=== PATIENT | female | born 1985 | race Caucasian/White ===

== ENCOUNTER 2016-05-04 16:47 | Emergency (ER) | payer OTHER ==
[2016-05-04 17:08] VITALS: TEMP 98.5
[2016-05-04] MEDS ORDERED: KETOROLAC 30 MG/ML 1 ML VIAL IVP STA (18:44)
[2016-05-04] MEDS ORDERED: PHENAZOPYRIDINE 200 MG TAB PO STA (18:44)
[2016-05-04] MEDS ORDERED: ONDANSETRON 4 MG/2 ML VIAL IVP STA ×2 (18:44→21:12)
[2016-05-04] MEDS ORDERED: SODIUM CHLORIDE 0.9% 1,000 ML IV STA (18:44)
--- NOTE | 2016-05-04 18:52 | ED ---
Abdominal Pain HPI - General Chief Complaint: Abdominal Pain Stated Complaint: vomiting, female gu Time Seen by Provider: 05/04/16 18:37 Source: patient, RN notes reviewed Mode of arrival: ambulatory Limitations: no limitations - History of Present Illness Initial Comments: 31 year old female that presented to the Er chief compliant of lower abdominal pain and dysuria. She states it started yesterday. Patient states the symptoms are getting worse. Patient's had nausea vomiting since this morning. Patient denies any diarrhea. Patient states she feels like she has urinary tract infection. Denies any flank pain. Patient states that she'll chance has she's had tubal ligation and NovaSure procedure. Patient had a prior appendectomy and cholecystectomy also. - Related Data Previous Rx's Medication Instructions Recorded Phenazopyridine [Pyridium] 200 mg PO TID #6 tablet 05/04/16 Allergies Allergy/AdvReac Type Severity Reaction Status Date / Time prochlorperazine maleate AdvReac Rapid Verified 05/04/16 18:55 [From Compazine] Heart Rate Review of Systems ROS Statement: Those systems with pertinent positive or pertinent negative responses have been documented in the HPI. ROS Other: All systems not noted in ROS Statement are negative. Past Medical History Past Medical History: No Reported History Additional Past Medical History / Comment(s): COLITIS, uti's, kidney infections , interstitial cystitis, kidney stones History of Any Multi-Drug Resistant Organisms: None Reported Past Surgical History: Appendectomy, Cholecystectomy, Hysterectomy, Tubal Ligation Additional Past Surgical History / Comment(s): novasure ENDOMETRIAL ABLATION Past Anesthesia/Blood Transfusion Reactions: No Reported Reaction Past Psychological History: No Psychological Hx Reported Smoking Status: Never smoker Past Alcohol Use History: None Reported Past Drug Use History: None Reported - Past Family History Mother Family Medical History: Cancer Father Family Medical History: No Reported History General Exam Limitations: no limitations General appearance: alert, in no apparent distress Head exam: Present: atraumatic, normocephalic, normal inspection Respiratory exam: Present: normal lung sounds bilaterally. Absent: respiratory distress, wheezes, rales, rhonchi, stridor Cardiovascular Exam: Present: regular rate, normal rhythm, normal heart sounds. Absent: systolic murmur, diastolic murmur, rubs, gallop, clicks GI/Abdominal exam: Present: soft, tenderness (moderate suprapubic tenderness), normal bowel sounds. Absent: distended, guarding, rebound, rigid Back exam: Absent: CVA tenderness (R), CVA tenderness (L) Neurological exam: Present: alert, oriented X3, CN II-XII intact Skin exam: Present: warm, dry, intact, normal color. Absent: rash Course Vital Signs 05/04/16 17:06 Temperature 98.5 F Pulse Rate 86 Respiratory 20 Rate Blood Pressure 138/73 O2 Sat by Pulse 99 Oximetry Medical Decision Making - Medical Decision Making 31-year-old female presented for dysuria. Patient states that the Pyridium did initially help though she states ultrasound that made symptoms worse. Patient is requesting pain meds for this. Lab work was within normal limits. Patient will be discharged with primary DM. Return for a discussed. Patient states that she has no vaginal discharge and does not want a pelvic exam. - Lab Data Result diagrams: 05/04/16 19:04 05/04/16 19:04 Lab Results 05/04/16 05/04/16 05/04/16 Range/Units 19:04 19:04 19:04 WBC 8.0 (3.8-10.6) k/uL RBC 4.18 (3.80-5.40) m/uL Hgb 13.1 (11.4-16.0) gm/dL Hct 39.7 (34.0-46.0) % MCV 94.9 (80.0-100.0) fL MCH 31.4 (25.0-35.0) pg MCHC 33.1 (31.0-37.0) g/dL RDW 12.2 (11.5-15.5) % Plt Count 290 (150-450) k/uL Neutrophils % 74 % Lymphocytes % 16 % Monocytes % 7 % Eosinophils % 1 % Basophils % 0 % Neutrophils # 5.9 (1.3-7.7) k/uL Lymphocytes # 1.3 (1.0-4.8) k/uL Monocytes # 0.6 (0-1.0) k/uL Eosinophils # 0.1 (0-0.7) k/uL Basophils # 0.0 (0-0.2) k/uL Sodium 139 (137-145) mmol/L Potassium 3.3 L (3.5-5.1) mmol/L Chloride 101 (98-107) mmol/L Carbon Dioxide 25 (22-30) mmol/L Anion Gap 13 mmol/L BUN 9 (7-17) mg/dL Creatinine 0.62 (0.52-1.04) mg/dL Est GFR (MDRD) Af Amer >60 (>60 ml/min/1.73 sqM) Est GFR (MDRD) Non-Af >60 (>60 ml/min/1.73 sqM) Glucose 79 (74-99) mg/dL Calcium 9.4 (8.4-10.2) mg/dL Total Bilirubin 0.5 (0.2-1.3) mg/dL AST 16 (14-36) U/L ALT 23 (9-52) U/L Alkaline Phosphatase 63 (38-126) U/L Total Protein 7.7 (6.3-8.2) g/dL Albumin 4.7 (3.5-5.0) g/dL Amylase 79 (30-110) U/L Lipase 75 (23-300) U/L Urine Color Light Yellow Urine Appearance Clear (Clear) Urine pH 5.5 (5.0-8.0) Ur Specific [place] 1.012 (1.001-1.035) Urine Protein Negative (Negative) Urine Glucose (UA) Negative (Negative) Urine Ketones 1+ H (Negative) Urine Blood Moderate H (Negative) Urine Nitrate Negative (Negative) Urine Bilirubin Negative (Negative) Urine Urobilinogen <2.0 (<2.0) mg/dL Ur Leukocyte Esterase Negative (Negative) Urine RBC 4 (0-5) /hpf Urine WBC 2 (0-5) /hpf Ur Squamous Epith Cells 4 (0-4) /hpf Urine Mucus Rare H (None) /hpf Disposition Clinical Impression: Dysuria Disposition: HOME SELF-CARE Condition: Stable Instructions: Dysuria (ED) Additional Instructions: Please return to the Emergency Department if symptoms worsen or any other concerns. Prescriptions: Phenazopyridine [Pyridium] 200 mg PO TID #6 tablet Time of Disposition: 21:14
[2016-05-04 19:13] LABS: Basophils % (A) 0 %; CH 32.6; CHCM 34.5; Eosinophils # (A) 0.1 k/uL (0-0.7); Eosinophils % (A) 1 %; HCT 39.7 % (34.0-46.0); HDW 2.17; HGB 13.1 gm/dL (11.4-16.0); Luc # (Auto) 0.14; Luc % (Auto) 2; Lymphocytes # (A) 1.3 k/uL (1.0-4.8); Lymphocytes % (A) 16 %; MCH 31.4 pg (25.0-35.0); MCHC 33.1 g/dL (31.0-37.0); MCV 94.9 fL (80.0-100.0); Mean Platelet Volume 6.5; Monocytes # (A) 0.6 k/uL (0-1.0); Monocytes % (A) 7 %; Neutrophils # (A) 5.9 k/uL (1.3-7.7); Neutrophils % (A) 74 %; RBC 4.18 m/uL (3.80-5.40); RDW 12.2 % (11.5-15.5); WBC (Perox) 8.04
[2016-05-04 19:14] LABS: Appearance,Urine Clear (Clear); Bilirubin,Urine Negative (Negative); Glucose,Urine (UA) Negative (Negative); Ketones,Urine 1+ (Negative); Leukocyte Esterase,Urine Negative (Negative); Mucus,Urine Rare /hpf; Nitrite,Urine Negative (Negative); PH, Urine 5.5 (5.0-8.0); Particle Count 2077; Protein,Urine Negative (Negative); RBC,Urine 4 /hpf (0-5); Specific Gravity,Urine 1.012 (1.001-1.035); Squamous Epithelial Cell,Urine 4 /hpf (0-4); UA Billing (MACRO vs. MICRO) MICRO; Urobilinogen,Urine <2.0 mg/dL (<2.0); WBC,Urine 2 /hpf (0-5)
[2016-05-04 19:22] LABS: ALT 23 U/L (9-52); AST 16 U/L (14-36); Alkaline Phosphatase 63 U/L (38-126); Amylase 79 U/L (30-110); Anion Gap 13 mmol/L; Blood Urea Nitrogen 9 mg/dL (7-17); Calcium 9.4 mg/dL (8.4-10.2); Carbon Dioxide 25 mmol/L (22-30); Chloride 101 mmol/L (98-107); Glucose 79 mg/dL (74-99); Non-African American GFR(MDRD) >60 (>60 ml/min/1.73 sqM); Potassium 3.3 mmol/L (3.5-5.1); Sodium 139 mmol/L (137-145); Total Bilirubin 0.5 mg/dL (0.2-1.3); Total Protein 7.7 g/dL (6.3-8.2)
--- NOTE | 2016-05-04 20:00 | XR ---
EXAMINATION TYPE: XR KUB DATE OF EXAM: 05/04/2016 7:40 PM COMPARISON: 06/10/2015 HISTORY: 2 views TECHNIQUE: 2 views FINDINGS: Bowel gas pattern is normal. There is no sign of intestinal obstruction or pneumoperitoneum. Fecal pa ttern is normal. There are clips from cholecystectomy. Lung bases are clear. Bony structures are inta ct. IMPRESSION: Nonacute abdomen. No change.
--- NOTE | 2016-05-04 21:00 | US ---
EXAMINATION TYPE: US transvaginal DATE OF EXAM: 05/04/2016 8:48 PM COMPARISON: NONE CLINICAL HISTORY: Pain. TECHNIQUE: Transvaginal (TV) Date of LMP: 2014 EXAM MEASUREMENTS: Uterus: Surgically absent Endometrial Stripe: Surgically absent Right Ovary: 3.8 x 2.2 x 1.9 cm Left Ovary: 2.1 x 1.7 x 1.3 cm TECHNOLOGIST IMPRESSION: wnl 1. Uterus: Surgically absent 2. Endometrium: Surgically absent 3. Right Ovary: wnl 4. Left Ovary: wnl Spectral, color and waveform doppler imaging shows good arterial and venous flow within the ovaries ; there is no evidence for ovarian torsion. 5. Bilateral Adnexa: Large amount of peristalsing bowel visualized 6. Posterior cul-de-sac: wnl IMPRESSION: No adnexal mass or free fluid. There is normal arterial waveform in the ovarian arteries and no evidence of ovarian torsion. Hysterectomy is noted.
[2016-05-04] MEDS ORDERED: MORPHINE SULFATE 4 MG/ML SYRINGE IVP STA (21:12)
[2016-05-04 21:34] VITALS: BP 113/55; PULSE 80; RESP 18
== END 2016-05-04 21:33 | disposition home or self-care (01) ==
LOC: EC 16:47
DX: R30.0 Dysuria (principal); R10.30 Lower abdominal pain, unspecified; R11.2 Nausea with vomiting, unspecified; Z88.8 Allergy status to other drugs, medicaments and biological substances
CPT/HCPCS: 36415; 80053; 82150; 83690; 85025; 81001; 74000; 93975; 76830; 99284; 96374; 96375 ×2; 96376; 96361; J2270; J2405; J1885

== ENCOUNTER 2016-05-13 08:48 | Day surgery (SDC) | payer OTHER ==
[2016-05-13] MEDS ORDERED: LACTATED RINGERS 1,000 ML IV SCH (09:06)
[2016-05-13] MEDS ORDERED: ONDANSETRON 4 MG/2 ML VIAL IVP ONE (09:06)
[2016-05-13] MEDS ORDERED: DEXAMETHASONE SOD PHOSPHATE 10 MG/ML 1 ML VIAL IV ONE (09:06)
[2016-05-13] MEDS ORDERED: FAMOTIDINE 20 MG/2 ML VIAL IV PRN (09:06)
[2016-05-13] MEDS ORDERED: LIDOCAINE 1% 20 ML VIAL (10MG/ML) FOR IV START INTRADERMA ONE (09:19)
[2016-05-13] MEDS ORDERED: MIDAZOLAM 2 MG/2 ML VIAL IV ONE (10:38)
[2016-05-13] MEDS ORDERED: LIDOCAINE 1% INJ 10MG/ML (20 ML MDV) ONE (11:00)
[2016-05-13] MEDS ORDERED: MIDAZOLAM 2 MG/2 ML VIAL ONE (11:00)
[2016-05-13] MEDS ORDERED: PROPOFOL 10 MG/ML 20 ML VIAL IV ONE (11:00)
[2016-05-13] MEDS ORDERED: KETOROLAC 30 MG/ML 1 ML VIAL ONE (11:00)
[2016-05-13] MEDS ORDERED: fentaNYL (PF) 50 MCG/ML 2 ML AMP ONE (11:00)
[2016-05-13] MEDS: ceFAZolin 2 GM in SODIUM CHLORIDE 0.9% 100 ML IVPB ONE ×2 (11:00→11:02)
--- NOTE | 2016-05-13 11:47 | P.OP ---
Date of Procedure: 05/13/16 Preoperative Diagnosis: Interstitial Cystitis Postoperative Diagnosis: Same Procedure(s) Performed: Cystoscopy with Hydrodistention Anesthesia: BRENT Surgeon: Kumar Evans Estimated Blood Loss (ml): 0 IV fluids (ml): 900 Pathology: none sent Condition: stable Disposition: PACU Indications for Procedure: She has a long history of recurrent UTIs, dating back to at least 2001. She reports persistent suprapubic discomfort, associated with urinary frequency and occasional gross hematuria. Multiple imaging studies have been normal. Cystoscopy with hydrodistention demonstrated an 1100 cc capacity and no ulcers. She appears likely to have interstitial cystitis. She has been managed with dietary adjustments. Antimuscarinics have not helped. Her symptoms have recently exacerbated, and urinalysis shows no evidence of infection. She declines treatment with Elmiron, as it is not covered by her insurance. She also failed to receive biweekly rescue treatments, as was suggested. I have also suggested she see Dr. Marshall again, which she hasn't done. She now comes for repeat hydrodistension. Operative Findings: Submucosal petechiae are seen following hydrodistention. Description of Procedure: The patient was taken to the operating room and placed in the dorsal lithotomy position, with her legs supported in Juan stirrups. The external genitalia was prepped and draped sterilely. The 30 lens was used to introduce the 19- [place] Storzt cystoscopic sheath through the urethra and into the bladder under direct vision. The urethra appeared normal, as did the bladder. Both ureteral orifices were of normal anatomic location and configuration, and clear urine effluxed from both. No tumors, foreign bodies, or inflammatory lesions were seen. With the irrigant hung at 85 cm above the patient's bladder, the bladder was filled to capacity. Cystoscopy was repeated, revealing diffuse submucosal petechiae without ulceration. The bladder was again filled to capacity, then drained. Minor oozing was noted, which did not warrant fulguration. Again no ulcerations were seen. The patient tolerated the procedure well and was taken to the recovery room in stable condition. She will be discharged home postoperatively and follow-up in 2 weeks.
[2016-05-13] MEDS: HYDROmorphone 1 MG/ML 1 ML SYRINGE IVP PRN ×4 (11:54→12:24)
[2016-05-13 11:58] VITALS: TEMP 97.4
[2016-05-13] MEDS ORDERED: LACTATED RINGERS 1,000 ML IV ONE (12:15)
[2016-05-13 12:41] VITALS: RESP 16
[2016-05-13] MEDS ORDERED: HYDROcodone/APAP 5-325MG 1 EACH TAB PO ONE (13:18)
[2016-05-13 13:45] VITALS: BP 126/86; PULSE 76
== END 2016-05-13 14:08 | disposition home or self-care (01) ==
LOC: OR 08:48
PROVIDERS: ATTEND Urology
DX: N30.11 Interstitial cystitis (chronic) with hematuria (principal); Z91.09 Other allergy status, other than to drugs and biological substances
CPT/HCPCS: 52260; J2250; J1100; J2405; J2001; J3010; J1885; J1170; J0690; J2704

== ENCOUNTER → 2016-08-04 | Outpatient (CLI) | payer OTHER | END | disposition home or self-care (01) | LOC: LABWHC1 14:40 | PROVIDERS: ATTEND Family Medicine | DX: Z09 Encounter for follow-up examination after completed treatment for conditions other than malignant neoplasm (principal); R10.84 Generalized abdominal pain; Z87.19 Personal history of other diseases of the digestive system | CPT/HCPCS: 36415; 82272; 87045; 87046; 87324; 87328; 87329 ==

== ENCOUNTER → 2016-08-12 | Outpatient (CLI) | payer OTHER ==
--- NOTE | 2016-08-12 11:17 | FL ---
EXAMINATION TYPE: FL small bowel follow through DATE OF EXAM: 08/12/2016 COMPARISON: NONE HISTORY: Left upper quadrant pain associated with eating. TECHNIQUE: A dedicated small bowel follow-through was performed. FINDINGS: A tire buster film demonstrates a previous cholecystectomy. The patient drank barium of these. Small bowel caliber was normal. Small bowel mucosal pattern was no rmal. The terminal ileum was spotted and appeared normal. IMPRESSION: NORMAL DEDICATED SMALL BOWEL FOLLOW-THROUGH. FLUOROSCOPY TIME: 30 seconds.
== END | disposition home or self-care (01) ==
LOC: RADFLMAIN 09:01
PROVIDERS: ATTEND Surgery
DX: K62.5 Hemorrhage of anus and rectum (principal)
CPT/HCPCS: 74250

== ENCOUNTER 2016-09-10 09:56 | Emergency (ER) | payer OTHER ==
[2016-09-10] MEDS ORDERED: SODIUM CHLORIDE 0.9% 1,000 ML IV STA (10:05)
[2016-09-10] MEDS ORDERED: ONDANSETRON 4 MG/2 ML VIAL IVP STA (10:05)
[2016-09-10] MEDS ORDERED: KETOROLAC 30 MG/ML 1 ML VIAL IVP STA (10:05)
--- NOTE | 2016-09-10 10:07 | ED ---
General Adult HPI - General Chief complaint: Nausea/Vomiting/Diarrhea Stated complaint: vomiting Time Seen by Provider: 09/10/16 10:01 Source: patient, RN notes reviewed Mode of arrival: ambulatory Limitations: no limitations - History of Present Illness Initial comments: 31-year-old female presents emergency Department chief complaint of left flank pain nausea and vomiting and difficulty in urination. Patient has had these symptoms for the past few days. Patient denies any fever or chills. Patient does admit to history of kidney stones and states this feels much like that. Patient states that her pain is moderate. Patient states does hurt to touch along the left flank. Patient states she called her doctor and they referred her here because they did not have any openings for her today. Patient states she is not currently having any other symptoms. Patient denies any recent fever , chills, shortness of breath, chest pain, numbness or tingling, hematuria, constipation or diarrhea, headaches or visual changes, or any other current symptoms. - Related Data Home Medications Medication Instructions Recorded Confirmed Acetaminophen [Tylenol] 500 mg PO Q4-6H PRN 09/10/16 09/10/16 Previous Rx's Medication Instructions Recorded Ciprofloxacin HCl [Cipro] 500 mg PO Q12HR #14 tablet 09/10/16 Hydrocodone/Acetaminophen [Van 1 each PO Q6HR PRN #20 tab 09/10/16 5-325] Ketorolac [Toradol] 10 mg PO Q6HR #20 tab 09/10/16 Ondansetron Odt [Zofran ODT] 4 mg PO Q8HR PRN #20 tab 09/10/16 Tamsulosin [Flomax] 0.4 mg PO DAILY #5 cap 09/10/16 Allergies Allergy/AdvReac Type Severity Reaction Status Date / Time prochlorperazine maleate AdvReac Rapid Verified 09/10/16 10:20 [From Compazine] Heart Rate Review of Systems ROS Statement: Those systems with pertinent positive or pertinent negative responses have been documented in the HPI. ROS Other: All systems not noted in ROS Statement are negative. Past Medical History Past Medical History: No Reported History Additional Past Medical History / Comment(s): COLITIS, uti's, kidney infections , interstitial cystitis, kidney stones History of Any Multi-Drug Resistant Organisms: None Reported Past Surgical History: Appendectomy, Cholecystectomy, Hysterectomy, Tubal Ligation Additional Past Surgical History / Comment(s): novasure ENDOMETRIAL ABLATION Past Anesthesia/Blood Transfusion Reactions: No Reported Reaction Past Psychological History: No Psychological Hx Reported Smoking Status: Never smoker Past Alcohol Use History: None Reported Past Drug Use History: None Reported - Past Family History Mother Family Medical History: Cancer Father Family Medical History: No Reported History General Exam - General Exam Comments Initial Comments: General: The patient is awake and alert, in no distress, and does not appear acutely ill. Eye: Pupils are equal, round and reactive to light, extra-ocular movements are intact; there is normal conjunctiva bilaterally. No signs of icterus. Ears, nose, mouth and throat: There are moist mucous membranes and no oral lesions. Neck: The neck is supple, there is no tenderness. Cardiovascular: There is a regular rate and rhythm. No murmur, rub or gallop is appreciated. Respiratory: Lungs are clear to auscultation, respirations are non-labored, breath sounds are equal. No wheezes, stridor, rales, or rhonchi. Gastrointestinal: Soft, non-distended, non-tender abdomen without masses or organomegaly noted. There is no rebound or guarding present. Left sided CVA tenderness. Bowel sounds are unremarkable. Back: There is no tenderness to palpation in the midline. There is no obvious deformity. No rashes noted. Musculoskeletal: Normal ROM, no tenderness, There is no pedal edema. There is no calf tenderness or swelling. Sensation intact. Pulses equal bilaterally 2+. Neurological: CN II-XII intact, There are no obvious motor or sensory deficits. Coordination appears grossly intact. Speech is normal. Skin: Skin is warm and dry and no rashes or lesions are noted. Psychiatric: Cooperative, appropriate mood & affect, normal judgment. Limitations: no limitations Course Vital Signs 09/10/16 09:57 Temperature 98.1 F Pulse Rate 90 Respiratory 20 Rate Blood Pressure 116/70 O2 Sat by Pulse 99 Oximetry Medical Decision Making - Medical Decision Making 31-year-old female presents emergency Department with a chief complaint of left- sided flank pain. At this time patient's CT and laboratory is reviewed. This tenderness does not appear to be acute finding for the pain but due to the patient's history of stones as well as her dysuria we will treat accordingly. We discussed we'll also cover for infection due to the CVA tenderness. We did discuss close follow-up with her doctor return parameters all questions. The patient stated that she understood and she agreed with this plan. This time she will be discharged home. - Lab Data Result diagrams: 09/10/16 10:17 09/10/16 10:17 Lab Results 09/10/16 09/10/16 09/10/16 Range/Units 10:17 10:17 10:17 WBC 7.5 (3.8-10.6) k/uL RBC 3.93 (3.80-5.40) m/uL Hgb 13.0 (11.4-16.0) gm/dL Hct 36.3 (34.0-46.0) % MCV 92.4 (80.0-100.0) fL MCH 33.0 (25.0-35.0) pg MCHC 35.7 (31.0-37.0) g/dL RDW 12.2 (11.5-15.5) % Plt Count 357 (150-450) k/uL Neutrophils % 58 % Lymphocytes % 30 % Monocytes % 6 % Eosinophils % 3 % Basophils % 1 % Neutrophils # 4.4 (1.3-7.7) k/uL Lymphocytes # 2.2 (1.0-4.8) k/uL Monocytes # 0.4 (0-1.0) k/uL Eosinophils # 0.2 (0-0.7) k/uL Basophils # 0.1 (0-0.2) k/uL Sodium 140 (137-145) mmol/L Potassium 4.2 (3.5-5.1) mmol/L Chloride 105 (98-107) mmol/L Carbon Dioxide 25 (22-30) mmol/L Anion Gap 10 mmol/L BUN 9 (7-17) mg/dL Creatinine 0.63 (0.52-1.04) mg/dL Est GFR (MDRD) Af Amer >60 (>60 ml/min/1.73 sqM) Est GFR (MDRD) Non-Af >60 (>60 ml/min/1.73 sqM) Glucose 87 (74-99) mg/dL Plasma Lactic Acid Kevin 0.8 (0.7-2.0) mmol/L Calcium 9.6 (8.4-10.2) mg/dL Total Bilirubin 0.6 (0.2-1.3) mg/dL AST 21 (14-36) U/L ALT 32 (9-52) U/L Alkaline Phosphatase 70 (38-126) U/L Total Protein 7.6 (6.3-8.2) g/dL Albumin 4.5 (3.5-5.0) g/dL Amylase 89 (30-110) U/L Lipase 79 (23-300) U/L Urine Color Urine Appearance (Clear) Urine pH (5.0-8.0) Ur Specific [place] (1.001-1.035) Urine Protein (Negative) Urine Glucose (UA) (Negative) Urine Ketones (Negative) Urine Blood (Negative) Urine Nitrite (Negative) Urine Bilirubin (Negative) Urine Urobilinogen (<2.0) mg/dL Ur Leukocyte Esterase (Negative) Urine RBC (0-5) /hpf Urine WBC (0-5) /hpf Ur Squamous Epith Cells (0-4) /hpf Urine Bacteria (None) /hpf Urine Mucus (None) /hpf 09/10/16 Range/Units 10:17 WBC (3.8-10.6) k/uL RBC (3.80-5.40) m/uL Hgb (11.4-16.0) gm/dL Hct (34.0-46.0) % MCV (80.0-100.0) fL MCH (25.0-35.0) pg MCHC (31.0-37.0) g/dL RDW (11.5-15.5) % Plt Count (150-450) k/uL Neutrophils % % Lymphocytes % % Monocytes % % Eosinophils % % Basophils % % Neutrophils # (1.3-7.7) k/uL Lymphocytes # (1.0-4.8) k/uL Monocytes # (0-1.0) k/uL Eosinophils # (0-0.7) k/uL Basophils # (0-0.2) k/uL Sodium (137-145) mmol/L Potassium (3.5-5.1) mmol/L Chloride (98-107) mmol/L Carbon Dioxide (22-30) mmol/L Anion Gap mmol/L BUN (7-17) mg/dL Creatinine (0.52-1.04) mg/dL Est GFR (MDRD) Af Amer (>60 ml/min/1.73 sqM) Est GFR (MDRD) Non-Af (>60 ml/min/1.73 sqM) Glucose (74-99) mg/dL Plasma Lactic Acid Kevin (0.7-2.0) mmol/L Calcium (8.4-10.2) mg/dL Total Bilirubin (0.2-1.3) mg/dL AST (14-36) U/L ALT (9-52) U/L Alkaline Phosphatase (38-126) U/L Total Protein (6.3-8.2) g/dL Albumin (3.5-5.0) g/dL Amylase (30-110) U/L Lipase (23-300) U/L Urine Color Yellow Urine Appearance Clear (Clear) Urine pH 6.5 (5.0-8.0) Ur Specific [place] 1.015 (1.001-1.035) Urine Protein Negative (Negative) Urine Glucose (UA) Negative (Negative) Urine Ketones Negative (Negative) Urine Blood Small H (Negative) Urine Nitrite Negative (Negative) Urine Bilirubin Negative (Negative) Urine Urobilinogen <2.0 (<2.0) mg/dL Ur Leukocyte Esterase Negative (Negative) Urine RBC 4 (0-5) /hpf Urine WBC 1 (0-5) /hpf Ur Squamous Epith Cells 4 (0-4) /hpf Urine Bacteria Rare H (None) /hpf Urine Mucus Rare H (None) /hpf - Radiology Data Radiology results: report reviewed, image reviewed Disposition Clinical Impression: Left flank pain Disposition: HOME SELF-CARE Condition: Stable Instructions: Flank Pain (ED) Additional Instructions: Please use medication as discussed. Please follow up with family doctor if symptoms have not improved over the next two days. Please return to the emergency room if your symptoms increase or worsen or for any other concerns. Prescriptions: Ciprofloxacin HCl [Cipro] 500 mg PO Q12HR #14 tablet Hydrocodone/Acetaminophen [Van 5-325] 1 each PO Q6HR PRN #20 tab PRN Reason: Pain Ketorolac [Toradol] 10 mg PO Q6HR #20 tab Ondansetron Odt [Zofran ODT] 4 mg PO Q8HR PRN #20 tab PRN Reason: Nausea Tamsulosin [Flomax] 0.4 mg PO DAILY #5 cap Referrals: Mara Jack MD [Primary Care Provider] - 1-2 days Chi Romero MD [STAFF PHYSICIAN] - 1-2 days Time of Disposition: 11:43
[2016-09-10 10:35] LABS: Basophils # (A) 0.1 k/uL (0-0.2); Basophils % (A) 1 %; CH 32.6; CHCM 35.4; Eosinophils # (A) 0.2 k/uL (0-0.7); Eosinophils % (A) 3 %; HCT 36.3 % (34.0-46.0); Luc # (Auto) 0.23; Luc % (Auto) 3; Lymphocytes # (A) 2.2 k/uL (1.0-4.8); Lymphocytes % (A) 30 %; MCHC 35.7 g/dL (31.0-37.0); MCV 92.4 fL (80.0-100.0); Mean Platelet Volume 6.6; Monocytes # (A) 0.4 k/uL (0-1.0); Monocytes % (A) 6 %; Neutrophils # (A) 4.4 k/uL (1.3-7.7); Neutrophils % (A) 58 %; RBC 3.93 m/uL (3.80-5.40); RDW 12.2 % (11.5-15.5); WBC 7.5 k/uL (3.8-10.6); WBC (Perox) 7.34
--- NOTE | 2016-09-10 10:48 | XR ---
Abdomen HISTORY: Flank pain Frontal view of the abdomen on 2 images correlated to prior abdomen 08/12/2016 Retained fecal debris present throughout the colon. There is a spinal curvature. Lung bases are clear . There is no pneumoperitoneum or bowel obstruction. Present in the right upper quadrant. IMPRESSION: Correlate for fecal stasis. Follow-up as indicated.
[2016-09-10 10:49] LABS: Appearance,Urine Clear (Clear); Bacteria,Urine Rare /hpf; Bilirubin,Urine Negative (Negative); Glucose,Urine (UA) Negative (Negative); Ketones,Urine Negative (Negative); Leukocyte Esterase,Urine Negative (Negative); Mucus,Urine Rare /hpf; Nitrite,Urine Negative (Negative); PH, Urine 6.5 (5.0-8.0); Particle Count 2594; Protein,Urine Negative (Negative); RBC,Urine 4 /hpf (0-5); Specific Gravity,Urine 1.015 (1.001-1.035); Squamous Epithelial Cell,Urine 4 /hpf (0-4); UA Billing (MACRO vs. MICRO) MICRO; Urobilinogen,Urine <2.0 mg/dL (<2.0); WBC,Urine 1 /hpf (0-5)
[2016-09-10 11:05] LABS: ALT 32 U/L (9-52); AST 21 U/L (14-36); Alkaline Phosphatase 70 U/L (38-126); Amylase 89 U/L (30-110); Anion Gap 10 mmol/L; Blood Urea Nitrogen 9 mg/dL (7-17); Calcium 9.6 mg/dL (8.4-10.2); Carbon Dioxide 25 mmol/L (22-30); Chloride 105 mmol/L (98-107); Glucose 87 mg/dL (74-99); Non-African American GFR(MDRD) >60 (>60 ml/min/1.73 sqM); Potassium 4.2 mmol/L (3.5-5.1); Sodium 140 mmol/L (137-145); Total Bilirubin 0.6 mg/dL (0.2-1.3); Total Protein 7.6 g/dL (6.3-8.2)
--- NOTE | 2016-09-10 11:29 | CT ---
EXAMINATION TYPE: CT abdomen pelvis wo con DATE OF EXAM: 09/10/2016 COMPARISON: 01/30/2015 INDICATION: Pain, Vomiting. Renal stones. Hysterectomy. Interstitial cystitis. DLP: 790 mGycm, Automated exposure control for dose reduction was used. CONTRAST: 0 mL of Omnipaque 300. Study performed without Oral Contrast TECHNIQUE: Axial images were obtained from above the diaphragm to the pubic rami in the axial plane a t 5 mm thick sections. Reconstructed images are reviewed on the computer in the coronal plane. FINDINGS: Limited CT sections are obtained the lung bases. The lung bases are clear. CT ABDOMEN: Liver: Normal Spleen: Normal Pancreas: Normal Adrenal glands: The adrenal glands are normal. Gallbladder: Normal Kidneys: No masses are evident. No hydronephrosis is present. No cysts are present. No renal stone s are identified. Aorta: Normal Inferior vena cava: Normal. CT PELVIS: Loops of bowel within the abdomen and pelvis are normal. Study is performed without oral contrast limiting the evaluation. Appendix: Not visualized Urinary bladder: Decompressed with limited evaluation Genitourinary structures: Uterus and adnexal regions are not well visualized. Correlate with patient' s surgical history. Osseous structures: No suspicious lytic or sclerotic lesions. IMPRESSIONS: 1. No acute process evident.
[2016-09-10] MEDS ORDERED: HYDROmorphone 1 MG/ML 1 ML SYRINGE IVP STA (11:42)
[2016-09-10 12:08] VITALS: BP 130/60; PULSE 82; RESP 18; TEMP 98
== END 2016-09-10 12:08 | disposition home or self-care (01) ==
LOC: EC 09:56
DX: R10.9 Unspecified abdominal pain (principal); R11.2 Nausea with vomiting, unspecified; R19.7 Diarrhea, unspecified; R39.198 Other difficulties with micturition; Z88.8 Allergy status to other drugs, medicaments and biological substances; Z90.49 Acquired absence of other specified parts of digestive tract; Z87.19 Personal history of other diseases of the digestive system; Z87.442 Personal history of urinary calculi
CPT/HCPCS: 99284; 96374; 96375 ×2; 96361 ×2; 36415; 80053; 82150; 83605; 83690; 85025; 81001; 87040; 87086; 74000; 74176; J2405; J1885; J1170

== ENCOUNTER 2016-09-12 17:22 | Emergency (ER) | payer OTHER ==
[2016-09-12] MEDS ORDERED: ONDANSETRON 4 MG/2 ML VIAL IVP STA (18:24)
[2016-09-12] MEDS ORDERED: HYDROmorphone 1 MG/ML 1 ML SYRINGE IVP STA (18:24)
[2016-09-12] MEDS ORDERED: SODIUM CHLORIDE 0.9% 2,000 ML IV STA (18:24)
[2016-09-12] MEDS ORDERED: KETOROLAC 30 MG/ML 1 ML VIAL IVP STA (18:25)
--- NOTE | 2016-09-12 18:29 | ED ---
Nausea/Vomiting/Diarrhea HPI - General Chief complaint: Nausea/Vomiting/Diarrhea Stated complaint: vomiting Time Seen by Provider: 09/12/16 18:06 Source: patient, RN notes reviewed, old records reviewed Mode of arrival: ambulatory Limitations: no limitations - History of Present Illness Initial comments: 31-year-old female presents the ED chief complaint of left flank and left upper and lower quadrant abdominal pain. Patient was diagnosed with kidney stones proximally 2 days ago. She was sent home with pain medication and antibiotics for concern for mild infection. Patient reports that she's had continued vomiting despite using her antinausea medicine. Patient states that she did not have her medication, because she did vomit just recently. Patient states that she feels chilled but denies any specific fever. Patient reports noticing some pink urine and reports some mild pain with bowel movements as well. Denies any blood in her stool. She denies any blood in her vomit. She does state that she has a urologist, Dr. Retana however she's not been able to see him. Surgical history includes appendectomy, cholecystectomy, and hysterectomy. - Related Data Previous Rx's Medication Instructions Recorded Ciprofloxacin HCl [Cipro] 500 mg PO Q12HR #14 tablet 09/10/16 Hydrocodone/Acetaminophen [[place] 1 each PO Q6HR PRN #20 tab 09/10/16 5-325] Ketorolac [Toradol] 10 mg PO Q6HR #20 tab 09/10/16 Ondansetron Odt [Zofran ODT] 4 mg PO Q8HR PRN #20 tab 09/10/16 Tamsulosin [Flomax] 0.4 mg PO DAILY #5 cap 09/10/16 Phenazopyridine [Pyridium] 100 mg PO TID #12 tablet 09/12/16 Allergies Allergy/AdvReac Type Severity Reaction Status Date / Time prochlorperazine maleate AdvReac Rapid Verified 09/12/16 18:09 [From Compazine] Heart Rate Review of Systems ROS Statement: Those systems with pertinent positive or pertinent negative responses have been documented in the HPI. ROS Other: All systems not noted in ROS Statement are negative. Past Medical History Past Medical History: No Reported History Additional Past Medical History / Comment(s): COLITIS, uti's, kidney infections , interstitial cystitis, kidney stones History of Any Multi-Drug Resistant Organisms: None Reported Past Surgical History: Appendectomy, Cholecystectomy, Hysterectomy, Tubal Ligation Additional Past Surgical History / Comment(s): novasure ENDOMETRIAL ABLATION Past Anesthesia/Blood Transfusion Reactions: No Reported Reaction Past Psychological History: No Psychological Hx Reported Smoking Status: Never smoker Past Alcohol Use History: None Reported Past Drug Use History: None Reported - Past Family History Mother Family Medical History: Cancer Father Family Medical History: No Reported History General Exam - General Exam Comments Initial Comments: This is a pleasant 31-year-old female. Patient does appear to be in some discomfort. Limitations: no limitations General appearance: alert, in no apparent distress Head exam: Present: atraumatic, normocephalic, normal inspection Eye exam: Present: normal appearance, PERRL, EOMI. Absent: scleral icterus, conjunctival injection, periorbital swelling ENT exam: Present: normal exam, mucous membranes moist Neck exam: Present: normal inspection. Absent: tenderness, meningismus, lymphadenopathy Respiratory exam: Present: normal lung sounds bilaterally. Absent: respiratory distress, wheezes, rales, rhonchi, stridor Cardiovascular Exam: Present: regular rate, normal rhythm, normal heart sounds. Absent: systolic murmur, diastolic murmur, rubs, gallop, clicks GI/Abdominal exam: Present: soft, tenderness (Left upper quadrant and left flank pain. ), normal bowel sounds. Absent: distended, guarding, rebound, rigid Extremities exam: Present: normal inspection, full ROM, normal capillary refill. Absent: tenderness, pedal edema, joint swelling, calf tenderness Back exam: Present: normal inspection, CVA tenderness (L) Neurological exam: Present: alert, oriented X3, CN II-XII intact Psychiatric exam: Present: normal affect, normal mood Skin exam: Present: warm, dry, intact, normal color. Absent: rash Course Vital Signs 09/12/16 09/12/16 09/12/16 17:27 18:29 19:10 Temperature 98.5 F 98.5 F 98.6 F Pulse Rate 102 H 82 84 Respiratory 20 18 16 Rate Blood Pressure 121/78 119/61 113/53 O2 Sat by Pulse 99 96 99 Oximetry Medical Decision Making - Medical Decision Making 31-year-old female presents the ED chief complaint of left flank and left upper and lower quadrant abdominal pain. Patient was diagnosed with kidney stones proximally 2 days ago. She was sent home with pain medication and antibiotics for concern for mild infection. Patient reports that she's had continued vomiting despite using her antinausea medicine. Patient's lab work was reviewed no acute abnormalities. She is resting comfortable with this time. Patient does refuse pelvic exam. She does complain of some continued dysuria. She reports she does have a history of interstitial cystitis. I offered the patient that we could give her some Pyridium to help with the dysuria. She is currently her knee on antibiotics, ciprofloxacin, Toradol, and [place] and Zofran for nausea. Discussed that she needs follow-up with her urologist. Patient agrees to treatment plan will comply. Return parameters were discussed. - Lab Data Result diagrams: 09/12/16 18:40 09/12/16 18:40 Lab Results 09/12/16 09/12/16 09/12/16 Range/Units 18:40 18:40 18:40 WBC 6.8 (3.8-10.6) k/uL RBC 3.71 L (3.80-5.40) m/uL Hgb 12.1 (11.4-16.0) gm/dL Hct 34.3 (34.0-46.0) % MCV 92.3 (80.0-100.0) fL MCH 32.6 (25.0-35.0) pg MCHC 35.4 (31.0-37.0) g/dL RDW 12.2 (11.5-15.5) % Plt Count 283 (150-450) k/uL Neutrophils % 47 % Lymphocytes % 41 % Monocytes % 6 % Eosinophils % 3 % Basophils % 1 % Neutrophils # 3.2 (1.3-7.7) k/uL Lymphocytes # 2.8 (1.0-4.8) k/uL Monocytes # 0.4 (0-1.0) k/uL Eosinophils # 0.2 (0-0.7) k/uL Basophils # 0.0 (0-0.2) k/uL Sodium 139 (137-145) mmol/L Potassium 3.9 (3.5-5.1) mmol/L Chloride 107 (98-107) mmol/L Carbon Dioxide 24 (22-30) mmol/L Anion Gap 8 mmol/L BUN 11 (7-17) mg/dL Creatinine 0.67 (0.52-1.04) mg/dL Est GFR (MDRD) Af Amer >60 (>60 ml/min/1.73 sqM) Est GFR (MDRD) Non-Af >60 (>60 ml/min/1.73 sqM) Glucose 87 (74-99) mg/dL Calcium 9.1 (8.4-10.2) mg/dL Total Bilirubin 0.5 (0.2-1.3) mg/dL AST 21 (14-36) U/L ALT 30 (9-52) U/L Alkaline Phosphatase 59 (38-126) U/L Total Protein 6.6 (6.3-8.2) g/dL Albumin 4.0 (3.5-5.0) g/dL Amylase 64 (30-110) U/L Lipase 46 (23-300) U/L Urine Color Yellow Urine Appearance Clear (Clear) Urine pH 7.0 (5.0-8.0) Ur Specific [place] 1.023 (1.001-1.035) Urine Protein Trace H (Negative) Urine Glucose (UA) Negative (Negative) Urine Ketones Negative (Negative) Urine Blood Trace H (Negative) Urine Nitrite Negative (Negative) Urine Bilirubin Negative (Negative) Urine Urobilinogen <2.0 (<2.0) mg/dL Ur Leukocyte Esterase Negative (Negative) Urine RBC 5 (0-5) /hpf Urine WBC <1 (0-5) /hpf Ur Squamous Epith Cells 4 (0-4) /hpf Urine Mucus Rare H (None) /hpf - Radiology Data Radiology results: report reviewed CT abdomen and pelvis was performed on 09/10/2016. CT abdomen and pelvis shows no masses are evident. No evidence of hydronephrosis or renal stones were identified at that time. No evidence of any significant acute process. Disposition Clinical Impression: Dysuria, Flank pain Disposition: HOME SELF-CARE Condition: Good Additional Instructions: Patient is advised to follow-up with Dr. Evans. Take all previously prescribed medications including antibiotics. Apply heating pad over the abdomen and back. Return to the emergency department if any alarming signs or symptoms occur. Also recommend slowly advancing diet from clear liquids to bland foods over the next 24-48 hours. Prescriptions: Phenazopyridine [Pyridium] 100 mg PO TID #12 tablet Referrals: Mara Jack MD [Primary Care Provider] - 1-2 days Kumar Evans MD [STAFF PHYSICIAN] - 1-2 days Time of Disposition: 19:32
[2016-09-12 18:59] LABS: Basophils % (A) 1 %; CH 32.5; CHCM 35.3; Eosinophils # (A) 0.2 k/uL (0-0.7); Eosinophils % (A) 3 %; HCT 34.3 % (34.0-46.0); HGB 12.1 gm/dL (11.4-16.0); Luc # (Auto) 0.17; Luc % (Auto) 2; Lymphocytes # (A) 2.8 k/uL (1.0-4.8); Lymphocytes % (A) 41 %; MCH 32.6 pg (25.0-35.0); MCHC 35.4 g/dL (31.0-37.0); MCV 92.3 fL (80.0-100.0); Mean Platelet Volume 7.2; Monocytes # (A) 0.4 k/uL (0-1.0); Monocytes % (A) 6 %; Neutrophils # (A) 3.2 k/uL (1.3-7.7); Neutrophils % (A) 47 %; RBC 3.71 m/uL (3.80-5.40); RDW 12.2 % (11.5-15.5); WBC 6.8 k/uL (3.8-10.6); WBC (Perox) 6.51
[2016-09-12 19:09] LABS: Appearance,Urine Clear (Clear); Bilirubin,Urine Negative (Negative); Glucose,Urine (UA) Negative (Negative); Ketones,Urine Negative (Negative); Leukocyte Esterase,Urine Negative (Negative); Mucus,Urine Rare /hpf; Nitrite,Urine Negative (Negative); Particle Count 2533; Protein,Urine Trace (Negative); RBC,Urine 5 /hpf (0-5); Specific Gravity,Urine 1.023 (1.001-1.035); Squamous Epithelial Cell,Urine 4 /hpf (0-4); UA Billing (MACRO vs. MICRO) MICRO; Urobilinogen,Urine <2.0 mg/dL (<2.0); WBC,Urine <1 /hpf (0-5)
[2016-09-12 19:10] LABS: ALT 30 U/L (9-52); AST 21 U/L (14-36); Alkaline Phosphatase 59 U/L (38-126); Amylase 64 U/L (30-110); Anion Gap 8 mmol/L; Blood Urea Nitrogen 11 mg/dL (7-17); Calcium 9.1 mg/dL (8.4-10.2); Carbon Dioxide 24 mmol/L (22-30); Chloride 107 mmol/L (98-107); Glucose 87 mg/dL (74-99); Non-African American GFR(MDRD) >60 (>60 ml/min/1.73 sqM); Potassium 3.9 mmol/L (3.5-5.1); Sodium 139 mmol/L (137-145); Total Bilirubin 0.5 mg/dL (0.2-1.3); Total Protein 6.6 g/dL (6.3-8.2)
[2016-09-12 19:12] VITALS: BP 113/53; PULSE 84; RESP 16; TEMP 98.6
[2016-09-12] MEDS ORDERED: MORPHINE SULFATE 2 MG/ML SYRINGE IVP ONE (19:35)
== END 2016-09-12 19:52 | disposition home or self-care (01) ==
LOC: EC 17:22
DX: R30.0 Dysuria (principal); R10.32 Left lower quadrant pain; R10.12 Left upper quadrant pain; R11.10 Vomiting, unspecified; Z87.442 Personal history of urinary calculi; Z90.49 Acquired absence of other specified parts of digestive tract; Z88.8 Allergy status to other drugs, medicaments and biological substances
CPT/HCPCS: 99284; 96374; 96375 ×3; 96361; 36415; 80053; 82150; 83690; 85025; 81001; J2405; J1885; J2270; J1170

== ENCOUNTER 2016-11-25 19:16 | Emergency (ER) | payer OTHER ==
[2016-11-25 19:25] VITALS: RESP 16
[2016-11-25] MEDS ORDERED: KETOROLAC 30 MG/ML 1 ML VIAL IVP STA (19:47)
[2016-11-25] MEDS ORDERED: ONDANSETRON 4 MG/2 ML VIAL IVP STA (19:47)
[2016-11-25] MEDS ORDERED: MORPHINE SULFATE 2 MG/ML SYRINGE IVP STA (19:47)
[2016-11-25] MEDS ORDERED: SODIUM CHLORIDE 0.9% 2,000 ML IV STA (19:47)
[2016-11-25] MEDS ORDERED: ACETAMINOPHEN TAB 500 MG TAB PO STA (19:48)
[2016-11-25 20:27] LABS: Basophils % (A) 1 %; CH 33.2; CHCM 35.7; Eosinophils # (A) 0.1 k/uL (0-0.7); Eosinophils % (A) 2 %; HCT 36.7 % (34.0-46.0); HDW 2.27; HGB 12.6 gm/dL (11.4-16.0); Luc # (Auto) 0.18; Luc % (Auto) 3; Lymphocytes # (A) 1.8 k/uL (1.0-4.8); Lymphocytes % (A) 27 %; MCH 32.1 pg (25.0-35.0); MCHC 34.4 g/dL (31.0-37.0); MCV 93.1 fL (80.0-100.0); Mean Platelet Volume 7.3; Monocytes # (A) 0.4 k/uL (0-1.0); Monocytes % (A) 6 %; Neutrophils # (A) 3.9 k/uL (1.3-7.7); Neutrophils % (A) 61 %; RBC 3.94 m/uL (3.80-5.40); RDW 12.4 % (11.5-15.5); WBC 6.4 k/uL (3.8-10.6); WBC (Perox) 6.56
[2016-11-25 20:30] LABS: Amorphous Sediment,Urine Occasional /hpf; Appearance,Urine Cloudy (Clear); Bacteria,Urine Occasional /hpf; Bilirubin,Urine Negative (Negative); Glucose,Urine (UA) Negative (Negative); Ketones,Urine Negative (Negative); Leukocyte Esterase,Urine Negative (Negative); Mucus,Urine Rare /hpf; Nitrite,Urine Negative (Negative); PH, Urine 6.5 (5.0-8.0); Particle Count 8460; Protein,Urine Negative (Negative); RBC,Urine 3 /hpf (0-5); Specific Gravity,Urine 1.016 (1.001-1.035); Squamous Epithelial Cell,Urine 27 /hpf (0-4); UA Billing (MACRO vs. MICRO) MICRO; Urobilinogen,Urine <2.0 mg/dL (<2.0); WBC,Urine 2 /hpf (0-5)
[2016-11-25 20:47] LABS: ALT 24 U/L (9-52); AST 19 U/L (14-36); Alkaline Phosphatase 62 U/L (38-126); Amylase 69 U/L (30-110); Anion Gap 8 mmol/L; Blood Urea Nitrogen 9 mg/dL (7-17); Calcium 9.4 mg/dL (8.4-10.2); Carbon Dioxide 25 mmol/L (22-30); Chloride 106 mmol/L (98-107); Glucose 82 mg/dL (74-99); Non-African American GFR(MDRD) >60 (>60 ml/min/1.73 sqM); Potassium 3.8 mmol/L (3.5-5.1); Sodium 139 mmol/L (137-145); Total Bilirubin 0.2 mg/dL (0.2-1.3); Total Protein 7.1 g/dL (6.3-8.2)
[2016-11-25] MEDS ORDERED: RX INFO: IV CONTRAST WAS GIVEN 1 EACH MISC MISCELLANE PRN (21:24)
--- NOTE | 2016-11-25 21:28 | ED ---
Female Urogenital HPI - General Chief complaint: Urogenital Stated complaint: Female Time Seen by Provider: 11/25/16 19:29 Source: patient, RN notes reviewed, old records reviewed Mode of arrival: ambulatory Limitations: no limitations - History of Present Illness Initial comments: Physical 31-year-old female presents emergency department with chief complaint of dysuria, and right flank pain. Patient reports going on for the past 3 days. She reports that she needs to the urinary tract infection after getting here she states that happen before. Patient denies any diarrhea. She's had multiple episodes of vomiting. She also relates that she's noticed a pink tinge whenever she is urinating. She denies any blood in her emesis or stool. Patient reports that she has had no vaginal discharge. Neck concern for sexually transmitted infections and she has not been able to hold anything down today. - Related Data Previous Rx's Medication Instructions Recorded Ciprofloxacin HCl [Cipro] 500 mg PO Q12HR #10 tablet 11/25/16 Ketorolac [Toradol] 10 mg PO Q6HR #15 tab 11/25/16 Ondansetron Odt [Zofran Odt] 4 mg PO Q8HR PRN #12 tab 11/25/16 Allergies Allergy/AdvReac Type Severity Reaction Status Date / Time prochlorperazine maleate AdvReac Rapid Verified 11/25/16 19:56 [From Compazine] Heart Rate Review of Systems ROS Statement: Those systems with pertinent positive or pertinent negative responses have been documented in the HPI. ROS Other: All systems not noted in ROS Statement are negative. Past Medical History Past Medical History: No Reported History Additional Past Medical History / Comment(s): COLITIS, uti's, kidney infections , interstitial cystitis, kidney stones History of Any Multi-Drug Resistant Organisms: None Reported Past Surgical History: Appendectomy, Cholecystectomy, Hysterectomy, Tubal Ligation Additional Past Surgical History / Comment(s): novasure ENDOMETRIAL ABLATION Past Anesthesia/Blood Transfusion Reactions: No Reported Reaction Past Psychological History: No Psychological Hx Reported Smoking Status: Never smoker Past Alcohol Use History: None Reported Past Drug Use History: None Reported - Past Family History Mother Family Medical History: Cancer Father Family Medical History: No Reported History General Exam - General Exam Comments Initial Comments: 31-year-old female moderate discomfort. Limitations: no limitations General appearance: alert, in no apparent distress Head exam: Present: atraumatic, normocephalic, normal inspection Eye exam: Present: normal appearance, PERRL, EOMI. Absent: scleral icterus, conjunctival injection, periorbital swelling ENT exam: Present: normal exam, mucous membranes moist Neck exam: Present: normal inspection. Absent: tenderness, meningismus, lymphadenopathy Respiratory exam: Present: normal lung sounds bilaterally. Absent: respiratory distress, wheezes, rales, rhonchi, stridor Cardiovascular Exam: Present: regular rate, normal rhythm, normal heart sounds. Absent: systolic murmur, diastolic murmur, rubs, gallop, clicks GI/Abdominal exam: Present: soft, tenderness (Right lower quadrant tenderness, right flank tenderness.), normal bowel sounds. Absent: distended, guarding, rebound, rigid Extremities exam: Present: normal inspection, full ROM, normal capillary refill. Absent: tenderness, pedal edema, joint swelling, calf tenderness Back exam: Present: normal inspection Neurological exam: Present: alert, oriented X3, CN II-XII intact Psychiatric exam: Present: normal affect, normal mood Skin exam: Present: warm, dry, intact, normal color. Absent: rash Course Vital Signs 11/25/16 19:23 Temperature 98.5 F Pulse Rate 85 Respiratory 16 Rate Blood Pressure 121/61 O2 Sat by Pulse 100 Oximetry Medical Decision Making - Lab Data Result diagrams: 11/25/16 20:08 11/25/16 20:08 Lab Results 11/25/16 11/25/16 11/25/16 Range/Units 20:08 20:08 20:08 WBC 6.4 (3.8-10.6) k/uL RBC 3.94 (3.80-5.40) m/uL Hgb 12.6 (11.4-16.0) gm/dL Hct 36.7 (34.0-46.0) % MCV 93.1 (80.0-100.0) fL MCH 32.1 (25.0-35.0) pg MCHC 34.4 (31.0-37.0) g/dL RDW 12.4 (11.5-15.5) % Plt Count 302 (150-450) k/uL Neutrophils % 61 % Lymphocytes % 27 % Monocytes % 6 % Eosinophils % 2 % Basophils % 1 % Neutrophils # 3.9 (1.3-7.7) k/uL Lymphocytes # 1.8 (1.0-4.8) k/uL Monocytes # 0.4 (0-1.0) k/uL Eosinophils # 0.1 (0-0.7) k/uL Basophils # 0.0 (0-0.2) k/uL Sodium 139 (137-145) mmol/L Potassium 3.8 (3.5-5.1) mmol/L Chloride 106 (98-107) mmol/L Carbon Dioxide 25 (22-30) mmol/L Anion Gap 8 mmol/L BUN 9 (7-17) mg/dL Creatinine 0.68 (0.52-1.04) mg/dL Est GFR (MDRD) Af Amer >60 (>60 ml/min/1.73 sqM) Est GFR (MDRD) Non-Af >60 (>60 ml/min/1.73 sqM) Glucose 82 (74-99) mg/dL Calcium 9.4 (8.4-10.2) mg/dL Total Bilirubin 0.2 (0.2-1.3) mg/dL AST 19 (14-36) U/L ALT 24 (9-52) U/L Alkaline Phosphatase 62 (38-126) U/L Total Protein 7.1 (6.3-8.2) g/dL Albumin 4.4 (3.5-5.0) g/dL Amylase 69 (30-110) U/L Lipase 57 (23-300) U/L Urine Color Urine Appearance (Clear) Urine pH (5.0-8.0) Ur Specific [place] (1.001-1.035) Urine Protein (Negative) Urine Glucose (UA) (Negative) Urine Ketones (Negative) Urine Blood (Negative) Urine Nitrite (Negative) Urine Bilirubin (Negative) Urine Urobilinogen (<2.0) mg/dL Ur Leukocyte Esterase (Negative) Urine RBC (0-5) /hpf Urine WBC (0-5) /hpf Ur Squamous Epith Cells (0-4) /hpf Amorphous Sediment (None) /hpf Urine Bacteria (None) /hpf Urine Mucus (None) /hpf Urine HCG, Qual Not Detected (Not Detectd) Trichomonas Ag (Rapid) (Negative) 11/25/16 11/25/16 Range/Units 20:08 23:00 WBC (3.8-10.6) k/uL RBC (3.80-5.40) m/uL Hgb (11.4-16.0) gm/dL Hct (34.0-46.0) % MCV (80.0-100.0) fL MCH (25.0-35.0) pg MCHC (31.0-37.0) g/dL RDW (11.5-15.5) % Plt Count (150-450) k/uL Neutrophils % % Lymphocytes % % Monocytes % % Eosinophils % % Basophils % % Neutrophils # (1.3-7.7) k/uL Lymphocytes # (1.0-4.8) k/uL Monocytes # (0-1.0) k/uL Eosinophils # (0-0.7) k/uL Basophils # (0-0.2) k/uL Sodium (137-145) mmol/L Potassium (3.5-5.1) mmol/L Chloride (98-107) mmol/L Carbon Dioxide (22-30) mmol/L Anion Gap mmol/L BUN (7-17) mg/dL Creatinine (0.52-1.04) mg/dL Est GFR (MDRD) Af Amer (>60 ml/min/1.73 sqM) Est GFR (MDRD) Non-Af (>60 ml/min/1.73 sqM) Glucose (74-99) mg/dL Calcium (8.4-10.2) mg/dL Total Bilirubin (0.2-1.3) mg/dL AST (14-36) U/L ALT (9-52) U/L Alkaline Phosphatase (38-126) U/L Total Protein (6.3-8.2) g/dL Albumin (3.5-5.0) g/dL Amylase (30-110) U/L Lipase (23-300) U/L Urine Color Yellow Urine Appearance Cloudy H (Clear) Urine pH 6.5 (5.0-8.0) Ur Specific [place] 1.016 (1.001-1.035) Urine Protein Negative (Negative) Urine Glucose (UA) Negative (Negative) Urine Ketones Negative (Negative) Urine Blood Trace H (Negative) Urine Nitrite Negative (Negative) Urine Bilirubin Negative (Negative) Urine Urobilinogen <2.0 (<2.0) mg/dL Ur Leukocyte Esterase Negative (Negative) Urine RBC 3 (0-5) /hpf Urine WBC 2 (0-5) /hpf Ur Squamous Epith Cells 27 H (0-4) /hpf Amorphous Sediment Occasional H (None) /hpf Urine Bacteria Occasional H (None) /hpf Urine Mucus Rare H (None) /hpf Urine HCG, Qual (Not Detectd) Trichomonas Ag (Rapid) Negative (Negative) Disposition Clinical Impression: Dysuria, Nausea & vomiting Disposition: HOME SELF-CARE Condition: Good Instructions: Urinary Tract Infection in Women (ED) Additional Instructions: Patient has a follow-up tomorrow with primary care provider. Take medications as prescribed. Return to emergency department if any alarming signs or symptoms occur. Prescriptions: Ciprofloxacin HCl [Cipro] 500 mg PO Q12HR #10 tablet Ketorolac [Toradol] 10 mg PO Q6HR #15 tab Ondansetron Odt [Zofran Odt] 4 mg PO Q8HR PRN #12 tab PRN Reason: Nausea Referrals: Mara Jack MD [Primary Care Provider] - 1-2 days Time of Disposition: 23:56
--- NOTE | 2016-11-25 22:06 | CT ---
EXAMINATION TYPE: CT abdomen pelvis w con DATE OF EXAM: 11/25/2016 COMPARISON: 09/10/2016 HISTORY: Mid to RLQ pain with fever and vomiting CT DLP: 500.2 mGycm Automated exposure control for dose reduction was used. TECHNIQUE: Helical acquisition of images was performed from the lung bases through the pelvis. CONTRAST: Performed without Oral Contrast and with IV Contrast, patient injected with 100 mL of Omnipaque 300. FINDINGS: Lung bases are clear. There is no pleural effusion. Liver spleen pancreas appear normal. There are clips from cholecystectomy. Bile ducts are not dilated . There is no adrenal mass. Kidneys show satisfactory contrast opacification. There is no hydronephro sis. There is no ascites. Bladder is almost empty. I see no intestinal wall thickening. There are no dilated loops. There is no retroperitoneal adenopat hy. Appendix is not seen. There is no sign of appendicitis. The bony structures appear intact. IMPRESSION: NEGATIVE CT SCAN OF THE ABDOMEN AND PELVIS. NO SIGN OF APPENDICITIS. NO DILATED DUCTS. NO ADVERSE ALPHONSE NGE COMPARED TO OLD EXAM.
[2016-11-25] MEDS ORDERED: PHENAZOPYRIDINE 100 MG TAB PO STA (22:55)
--- NOTE | 2016-11-25 23:53 | US ---
EXAM: US Pelvis, Transvaginal CLINICAL HISTORY: Pain. History of partial hysterectomy in 2014. TECHNIQUE: Real-time transvaginal pelvic ultrasound (complete) with image documentation. Transvaginal imaging was used for better evaluation of the endometrium and adnexa. COMPARISON: Ultrasound dated 05/04/2016. FINDINGS: Uterus/cervix: Uterus is surgically absent. Right ovary: Right ovary not visualized due to overlying bowel gas. Left ovary: Left ovary measures 3.1 x 2.4 x 2.3 cm. Spectral, color and waveform doppler imaging demonstrates normal arterial and venous flow within the left ovary. No evidence for left ovarian torsion. Free fluid: No free fluid in the pelvis. IMPRESSION: 1. Unremarkable left ovary without evidence of ovarian torsion. 2. Right ovary not visualized. 3. Status post hysterectomy. 4. No free fluid in the pelvis.
[2016-11-25] MEDS ORDERED: ACET/COD 300 MG/30 MG STARTER PACK 6 TAB BTL PO STA (23:58)
[2016-11-26 00:10] VITALS: BP 111/57; PULSE 65; TEMP 98.8
[2016-11-30 12:45] LABS: Chlamydia/GC Source Vaginal
== END 2016-11-26 00:14 | disposition home or self-care (01) ==
LOC: EC 19:16
DX: R11.2 Nausea with vomiting, unspecified (principal); R30.0 Dysuria; R10.31 Right lower quadrant pain; Z87.442 Personal history of urinary calculi; Z90.49 Acquired absence of other specified parts of digestive tract; Z88.8 Allergy status to other drugs, medicaments and biological substances
CPT/HCPCS: 99285; 96365; 96366; 96375 ×3; 96361 ×2; 36415; 80053; 87591; 87491; 82150; 83690; 85025; 81001; 81025; 87808; 87070; 93976; 76830; 74177; J2405; J0696; J1885; J2270; Q9967; 87205

== ENCOUNTER 2017-04-01 10:09 | Emergency (ER) | payer OTHER ==
[2017-04-01 10:33] VITALS: RESP 18; TEMP 98.4
[2017-04-01] MEDS ORDERED: ONDANSETRON 4 MG/2 ML VIAL IVP STA ×2 (10:55→11:43)
[2017-04-01] MEDS ORDERED: KETOROLAC 30 MG/ML 1 ML VIAL IVP STA (10:55)
[2017-04-01] MEDS ORDERED: SODIUM CHLORIDE 0.9% 1,000 ML IV STA (10:55)
--- NOTE | 2017-04-01 10:59 | ED ---
General Adult HPI - General Chief complaint: Nausea/Vomiting/Diarrhea Stated complaint: NAUSEA, VOMITING X 3 DAYS, PAIN ON LEFT SIDE Time Seen by Provider: 04/01/17 10:48 Source: patient, RN notes reviewed, old records reviewed Mode of arrival: ambulatory Limitations: no limitations - History of Present Illness Initial comments: Patient 32-year-old female presenting today with a chief complaint of nausea vomiting and abdominal pain 3 days. Patient does admit there is no signs of any blood in the emesis. Does admit some dysuria with pain and pressure. States that she's had pain both on the left side and right side of the abdomen. She states worse on the left today. Patient described it as a sharp type pain starting only lower back radiating around to the lower abdomen. Patient denies any other complaints or symptoms. Patient denies any recent fever, chills , shortness of breath, chest pain, numbness or tingling, dysuria or hematuria, constipation or diarrhea, headaches or visual changes, or any other complaints. - Related Data Previous Rx's Medication Instructions Recorded Ondansetron Odt [Zofran ODT] 4 mg PO Q8HR PRN #20 tab 04/01/17 Allergies Allergy/AdvReac Type Severity Reaction Status Date / Time metoclopramide [From Reglan] Allergy Mild Rapid Verified 04/01/17 10:49 Heart Rate prochlorperazine maleate AdvReac Rapid Verified 04/01/17 10:49 [From Compazine] Heart Rate Review of Systems ROS Statement: Those systems with pertinent positive or pertinent negative responses have been documented in the HPI. ROS Other: All systems not noted in ROS Statement are negative. Past Medical History Past Medical History: No Reported History Additional Past Medical History / Comment(s): COLITIS, uti's, kidney infections , interstitial cystitis, kidney stones History of Any Multi-Drug Resistant Organisms: None Reported Past Surgical History: Appendectomy, Cholecystectomy, Hysterectomy, Tubal Ligation Additional Past Surgical History / Comment(s): novasure ENDOMETRIAL ABLATION Past Anesthesia/Blood Transfusion Reactions: No Reported Reaction Past Psychological History: No Psychological Hx Reported Smoking Status: Never smoker Past Alcohol Use History: None Reported Past Drug Use History: None Reported - Past Family History Mother Family Medical History: Cancer Father Family Medical History: No Reported History General Exam - General Exam Comments Initial Comments: General: The patient is awake and alert, in no distress, and does not appear acutely ill. Eye: Pupils are equal, round and reactive to light, extra-ocular movements are intact. No nystagmus. There is normal conjunctiva bilaterally. No signs of icterus. Ears, nose, mouth and throat: There are moist mucous membranes and no oral lesions. Neck: The neck is supple, there is no tenderness or JVD. Cardiovascular: There is a regular rate and rhythm. No murmur, rub or gallop is appreciated. Respiratory: Lungs are clear to auscultation, respirations are non-labored, breath sounds are equal. No wheezes, stridor, rales, or rhonchi. Gastrointestinal: Normal. His abdomen. Normal bowel sounds. Abdomen soft on palpation. Patient does have tenderness left flank and left lower quadrant. No rebound tenderness. No guarding. Musculoskeletal: Normal ROM, no tenderness. Strength 5/5. Sensation intact. Pulses equal bilaterally 2+. Neurological: A&O x 3. CN II-XII intact, There are no obvious motor or sensory deficits. Coordination appears grossly intact. Speech is normal. Skin: Skin is warm and dry and no rashes or lesions are noted. Psychiatric: Cooperative, appropriate mood & affect, normal judgment. Limitations: no limitations Course Vital Signs 04/01/17 10:30 Temperature 98.4 F Pulse Rate 87 Respiratory 18 Rate Blood Pressure 123/75 O2 Sat by Pulse 99 Oximetry Medical Decision Making - Medical Decision Making Patient reexamined at this time shows no signs of distress. She resting comfortably. Does admit to improvement after medications given here in emergency room. Patient's labs been reviewed unremarkable. Patient will be discharged home with nausea medication. Advised to follow-up family doctor return here to the emergency room symptoms increase or worsen or for any other concerns. Patient states understanding and is in agreement. - Lab Data Result diagrams: 04/01/17 11:15 04/01/17 11:15 Lab Results 04/01/17 04/01/17 04/01/17 Range/Units 11:15 11:15 11:15 WBC 8.2 (3.8-10.6) k/uL RBC 4.49 (3.80-5.40) m/uL Hgb 14.2 (11.4-16.0) gm/dL Hct 41.3 (34.0-46.0) % MCV 92.1 (80.0-100.0) fL MCH 31.6 (25.0-35.0) pg MCHC 34.3 (31.0-37.0) g/dL RDW 11.7 (11.5-15.5) % Plt Count 365 (150-450) k/uL Neutrophils % 60 % Lymphocytes % 30 % Monocytes % 5 % Eosinophils % 2 % Basophils % 1 % Neutrophils # 4.9 (1.3-7.7) k/uL Lymphocytes # 2.4 (1.0-4.8) k/uL Monocytes # 0.4 (0-1.0) k/uL Eosinophils # 0.2 (0-0.7) k/uL Basophils # 0.0 (0-0.2) k/uL Sodium 141 (137-145) mmol/L Potassium 4.0 (3.5-5.1) mmol/L Chloride 102 (98-107) mmol/L Carbon Dioxide 28 (22-30) mmol/L Anion Gap 11 mmol/L BUN 10 (7-17) mg/dL Creatinine 0.75 (0.52-1.04) mg/dL Est GFR (MDRD) Af Amer >60 (>60 ml/min/1.73 sqM) Est GFR (MDRD) Non-Af >60 (>60 ml/min/1.73 sqM) Glucose 83 (74-99) mg/dL Calcium 10.4 H (8.4-10.2) mg/dL Total Bilirubin 0.4 (0.2-1.3) mg/dL AST 15 (14-36) U/L ALT 27 (9-52) U/L Alkaline Phosphatase 78 (38-126) U/L Total Protein 8.0 (6.3-8.2) g/dL Albumin 4.9 (3.5-5.0) g/dL Amylase 112 H (30-110) U/L Lipase 119 (23-300) U/L Urine Color Urine Appearance (Clear) Urine pH (5.0-8.0) Ur Specific [place] (1.001-1.035) Urine Protein (Negative) Urine Glucose (UA) (Negative) Urine Ketones (Negative) Urine Blood (Negative) Urine Nitrite (Negative) Urine Bilirubin (Negative) Urine Urobilinogen (<2.0) mg/dL Ur Leukocyte Esterase (Negative) Urine RBC (0-5) /hpf Urine WBC (0-5) /hpf Ur Squamous Epith Cells (0-4) /hpf Urine Bacteria (None) /hpf Urine Mucus (None) /hpf Urine HCG, Qual Not Detected (Not Detectd) 04/01/17 Range/Units 11:15 WBC (3.8-10.6) k/uL RBC (3.80-5.40) m/uL Hgb (11.4-16.0) gm/dL Hct (34.0-46.0) % MCV (80.0-100.0) fL MCH (25.0-35.0) pg MCHC (31.0-37.0) g/dL RDW (11.5-15.5) % Plt Count (150-450) k/uL Neutrophils % % Lymphocytes % % Monocytes % % Eosinophils % % Basophils % % Neutrophils # (1.3-7.7) k/uL Lymphocytes # (1.0-4.8) k/uL Monocytes # (0-1.0) k/uL Eosinophils # (0-0.7) k/uL Basophils # (0-0.2) k/uL Sodium (137-145) mmol/L Potassium (3.5-5.1) mmol/L Chloride (98-107) mmol/L Carbon Dioxide (22-30) mmol/L Anion Gap mmol/L BUN (7-17) mg/dL Creatinine (0.52-1.04) mg/dL Est GFR (MDRD) Af Amer (>60 ml/min/1.73 sqM) Est GFR (MDRD) Non-Af (>60 ml/min/1.73 sqM) Glucose (74-99) mg/dL Calcium (8.4-10.2) mg/dL Total Bilirubin (0.2-1.3) mg/dL AST (14-36) U/L ALT (9-52) U/L Alkaline Phosphatase (38-126) U/L Total Protein (6.3-8.2) g/dL Albumin (3.5-5.0) g/dL Amylase (30-110) U/L Lipase (23-300) U/L Urine Color Yellow Urine Appearance Clear (Clear) Urine pH 5.5 (5.0-8.0) Ur Specific [place] 1.025 (1.001-1.035) Urine Protein Trace H (Negative) Urine Glucose (UA) Negative (Negative) Urine Ketones Negative (Negative) Urine Blood Moderate H (Negative) Urine Nitrite Negative (Negative) Urine Bilirubin Negative (Negative) Urine Urobilinogen <2.0 (<2.0) mg/dL Ur Leukocyte Esterase Negative (Negative) Urine RBC 3 (0-5) /hpf Urine WBC 2 (0-5) /hpf Ur Squamous Epith Cells 4 (0-4) /hpf Urine Bacteria Rare H (None) /hpf Urine Mucus Many H (None) /hpf Urine HCG, Qual (Not Detectd) Disposition Clinical Impression: Nausea and vomiting Disposition: HOME SELF-CARE Condition: Good Instructions: Acute Nausea and Vomiting (ED) Additional Instructions: Please use medication as discussed. Please follow-up with family doctor in the next 2 days of symptoms have not improved. Please return to emergency room if the symptoms increase or worsen or for any other concerns. Prescriptions: Ondansetron Odt [Zofran ODT] 4 mg PO Q8HR PRN #20 tab PRN Reason: Nausea Referrals: Mara Jack MD [Primary Care Provider] - 1-2 days Time of Disposition: 12:53
[2017-04-01 11:43] LABS: ALT 27 U/L (9-52); AST 15 U/L (14-36); Albumin 4.9 g/dL (3.5-5.0); Alkaline Phosphatase 78 U/L (38-126); Amylase 112 U/L (30-110); Anion Gap 11 mmol/L; Blood Urea Nitrogen 10 mg/dL (7-17); Calcium 10.4 mg/dL (8.4-10.2); Carbon Dioxide 28 mmol/L (22-30); Chloride 102 mmol/L (98-107); Glucose 83 mg/dL (74-99); Lipase 119 U/L (23-300); Sodium 141 mmol/L (137-145); Total Bilirubin 0.4 mg/dL (0.2-1.3)
[2017-04-01] MEDS ORDERED: diphenhydrAMINE 50 MG/ML 1 ML VIAL IVP STA (11:43)
[2017-04-01 11:57] LABS: Appearance,Urine Clear (Clear); Bacteria,Urine Rare /hpf; Bilirubin,Urine Negative (Negative); Blood,Urine Moderate (Negative); Color,Urine Yellow; Glucose,Urine (UA) Negative (Negative); Ketones,Urine Negative (Negative); Leukocyte Esterase,Urine Negative (Negative); Mucus,Urine Many /hpf; Nitrite,Urine Negative (Negative); PH, Urine 5.5 (5.0-8.0); Protein,Urine Trace (Negative); RBC,Urine 3 /hpf (0-5); Specific Gravity,Urine 1.025 (1.001-1.035); Squamous Epithelial Cell,Urine 4 /hpf (0-4); Urobilinogen,Urine <2.0 mg/dL (<2.0); WBC,Urine 2 /hpf (0-5)
--- NOTE | 2017-04-01 12:19 | XR ---
EXAMINATION TYPE: XR KUB DATE OF EXAM: 04/01/2017 COMPARISON: NONE HISTORY: Abdominal pain TECHNIQUE: One view abdominal series FINDINGS: The osseous structures are intact. The bowel gas pattern is nonspecific. Lung bases are clear. Surgi sadie clips in the right upper quadrant. IMPRESSION: 1. Nonspecific abdomen.
[2017-04-01 12:36] LABS: Basophils % (A) 1 %; Eosinophils # (A) 0.2 k/uL (0-0.7); Eosinophils % (A) 2 %; HCT 41.3 % (34.0-46.0); HGB 14.2 gm/dL (11.4-16.0); Lymphocytes # (A) 2.4 k/uL (1.0-4.8); Lymphocytes % (A) 30 %; MCH 31.6 pg (25.0-35.0); MCHC 34.3 g/dL (31.0-37.0); MCV 92.1 fL (80.0-100.0); Mean Platelet Volume 6.7; Monocytes # (A) 0.4 k/uL (0-1.0); Monocytes % (A) 5 %; Neutrophils # (A) 4.9 k/uL (1.3-7.7); Neutrophils % (A) 60 %; Platelet Count 365 k/uL (150-450); RBC 4.49 m/uL (3.80-5.40); RDW 11.7 % (11.5-15.5); WBC 8.2 k/uL (3.8-10.6)
[2017-04-01 13:04] VITALS: BP 102/71; PULSE 72
== END 2017-04-01 13:03 | disposition home or self-care (01) ==
LOC: EC 10:09
DX: R11.2 Nausea with vomiting, unspecified (principal); R10.32 Left lower quadrant pain; R30.0 Dysuria; M54.5 Low back pain; Z90.49 Acquired absence of other specified parts of digestive tract; Z87.19 Personal history of other diseases of the digestive system; Z87.442 Personal history of urinary calculi; Z88.8 Allergy status to other drugs, medicaments and biological substances
CPT/HCPCS: 36415; 80053; 82150; 83690; 85025; 81001; 81025; 74018; 99284; 96374; 96375 ×2; 96376; 96361; J1200; J2405; J1885

== ENCOUNTER 2017-04-03 15:25 | Emergency (ER) | payer OTHER ==
[2017-04-03 16:08] LABS: Amorphous Sediment,Urine Rare /hpf; Appearance,Urine Clear (Clear); Bilirubin,Urine Negative (Negative); Blood,Urine Trace (Negative); Color,Urine Yellow; Glucose,Urine (UA) Negative (Negative); Ketones,Urine Negative (Negative); Leukocyte Esterase,Urine Negative (Negative); Mucus,Urine Occasional /hpf; Nitrite,Urine Negative (Negative); Protein,Urine Negative (Negative); RBC,Urine 2 /hpf (0-5); Specific Gravity,Urine 1.014 (1.001-1.035); Squamous Epithelial Cell,Urine 3 /hpf (0-4); Urobilinogen,Urine <2.0 mg/dL (<2.0); WBC,Urine 2 /hpf (0-5)
[2017-04-03] MEDS ORDERED: HYDROmorphone 2 MG/ML 1 ML SYRINGE IVP STA (17:11)
[2017-04-03] MEDS ORDERED: ONDANSETRON 4 MG/2 ML VIAL IVP STA (17:11)
[2017-04-03] MEDS ORDERED: KETOROLAC 30 MG/ML 1 ML VIAL IVP STA (17:11)
[2017-04-03] MEDS ORDERED: SODIUM CHLORIDE 0.9% 1,000 ML IV ONE (17:11)
--- NOTE | 2017-04-03 17:14 | ED ---
Female Urogenital HPI - General Chief complaint: Urogenital Stated complaint: Vomiting Time Seen by Provider: 04/03/17 17:04 Source: patient, RN notes reviewed, old records reviewed Mode of arrival: ambulatory Limitations: no limitations - History of Present Illness Initial comments: Patient is a 32-year-old female presents emergency Department stay chief complaint of urinary frequency, burning with urination, left upper quadrant abdominal pain for the past 3 days. She was seen in emergency department discharged with Zofran 2 days ago. Patient reports that her pain is getting worse and her symptoms are similar. Patient states that she has had a history of kidney stones in the past. His surgical history includes appendectomy, cholecystectomy. She states that she has had fever and chills. She does arrive to emergency department somewhat diaphoretic. Patient states that this pain feels similar to her previous kidney stones. Patient states the pain will change position between the right flank and left flank throughout the day. - Related Data Previous Rx's Medication Instructions Recorded Ondansetron Odt [Zofran ODT] 4 mg PO Q8HR PRN #20 tab 04/01/17 Ciprofloxacin HCl [Cipro] 500 mg PO BID 3 Days #6 tab 04/03/17 HYDROcodone/APAP 5-325MG [[place] 1 tab PO Q6HR PRN #10 tab 04/03/17 5-325] Allergies Allergy/AdvReac Type Severity Reaction Status Date / Time metoclopramide [From Reglan] Allergy Mild Rapid Verified 04/03/17 17:47 Heart Rate prochlorperazine maleate AdvReac Rapid Verified 04/03/17 17:47 [From Compazine] Heart Rate Review of Systems ROS Statement: Those systems with pertinent positive or pertinent negative responses have been documented in the HPI. ROS Other: All systems not noted in ROS Statement are negative. Past Medical History Past Medical History: No Reported History Additional Past Medical History / Comment(s): COLITIS, uti's, kidney infections , interstitial cystitis, kidney stones History of Any Multi-Drug Resistant Organisms: None Reported Past Surgical History: Appendectomy, Cholecystectomy, Hysterectomy, Tubal Ligation Additional Past Surgical History / Comment(s): novasure ENDOMETRIAL ABLATION Past Anesthesia/Blood Transfusion Reactions: No Reported Reaction Past Psychological History: No Psychological Hx Reported Smoking Status: Never smoker Past Alcohol Use History: None Reported Past Drug Use History: None Reported - Past Family History Mother Family Medical History: Cancer Father Family Medical History: No Reported History General Exam - General Exam Comments Initial Comments: This patient is a 32-year-old female. She appears in moderate discomfort. Patient is visibly upset. Limitations: no limitations General appearance: alert Head exam: Present: atraumatic, normocephalic, normal inspection Eye exam: Present: normal appearance, PERRL, EOMI. Absent: scleral icterus, conjunctival injection, periorbital swelling ENT exam: Present: normal exam, mucous membranes moist Neck exam: Present: normal inspection. Absent: tenderness, meningismus, lymphadenopathy Respiratory exam: Present: normal lung sounds bilaterally. Absent: respiratory distress, wheezes, rales, rhonchi, stridor Cardiovascular Exam: Present: regular rate, normal rhythm, normal heart sounds. Absent: systolic murmur, diastolic murmur, rubs, gallop, clicks GI/Abdominal exam: Present: soft, tenderness (Left upper quadrant tenderness. Suprapubic tenderness noted.), normal bowel sounds. Absent: distended, guarding , rebound, rigid Extremities exam: Present: normal inspection, full ROM, normal capillary refill. Absent: tenderness, pedal edema, joint swelling, calf tenderness Back exam: Present: normal inspection Neurological exam: Present: alert, oriented X3, CN II-XII intact Psychiatric exam: Present: normal affect, normal mood Skin exam: Present: warm, dry, intact, normal color. Absent: rash Course Vital Signs 04/03/17 15:46 Temperature 98.7 F Pulse Rate 78 Respiratory 18 Rate Blood Pressure 126/73 O2 Sat by Pulse 99 Oximetry Medical Decision Making - Medical Decision Making Patient is a 32-year-old female presents emergency Department stay chief complaint of urinary frequency, burning with urination, left upper quadrant abdominal pain for the past 3 days. She was seen in emergency department discharged with Zofran 2 days ago. Patient reports that her pain is getting worse and her symptoms are similar. Patient was given IV fluids and pain medication. She does have some left upper quadrant tenderness left CVA tenderness. Patient's labwork was reviewed all within normal limits. Patient did have some blood within her urine on her initial visit. Patient did not have a urine culture at that time. I will obtain a urine culture today. Patient did have a manometry on the previous urinalysis. I discussed with patient. I discussed that he wasurinalysis negative I will write her prescription for Cipro. Discussed that her symptoms are persisting and to take one of those. Patient will be discharged with pain medication and continuing nausea medicine. Discussed proper follow-up with PCP. - Lab Data Result diagrams: 04/03/17 17:30 04/03/17 17:30 Lab Results 04/03/17 04/03/17 04/03/17 Range/Units 16:00 16:00 17:30 WBC (3.8-10.6) k/uL RBC (3.80-5.40) m/uL Hgb (11.4-16.0) gm/dL Hct (34.0-46.0) % MCV (80.0-100.0) fL MCH (25.0-35.0) pg MCHC (31.0-37.0) g/dL RDW (11.5-15.5) % Plt Count (150-450) k/uL Neutrophils % % Lymphocytes % % Monocytes % % Eosinophils % % Basophils % % Neutrophils # (1.3-7.7) k/uL Lymphocytes # (1.0-4.8) k/uL Monocytes # (0-1.0) k/uL Eosinophils # (0-0.7) k/uL Basophils # (0-0.2) k/uL PT (9.0-12.0) sec INR (<1.2) APTT (22.0-30.0) sec Sodium 140 (137-145) mmol/L Potassium 3.9 (3.5-5.1) mmol/L Chloride 102 (98-107) mmol/L Carbon Dioxide 29 (22-30) mmol/L Anion Gap 9 mmol/L BUN 9 (7-17) mg/dL Creatinine 0.77 (0.52-1.04) mg/dL Est GFR (MDRD) Af Amer >60 (>60 ml/min/1.73 sqM) Est GFR (MDRD) Non-Af >60 (>60 ml/min/1.73 sqM) Glucose 79 (74-99) mg/dL Calcium 10.0 (8.4-10.2) mg/dL Total Bilirubin 0.3 (0.2-1.3) mg/dL AST 15 (14-36) U/L ALT 26 (9-52) U/L Alkaline Phosphatase 67 (38-126) U/L Total Protein 7.1 (6.3-8.2) g/dL Albumin 4.4 (3.5-5.0) g/dL Amylase (30-110) U/L Lipase (23-300) U/L Urine Color Yellow Urine Appearance Clear (Clear) Urine pH 7.0 (5.0-8.0) Ur Specific [place] 1.014 (1.001-1.035) Urine Protein Negative (Negative) Urine Glucose (UA) Negative (Negative) Urine Ketones Negative (Negative) Urine Blood Trace H (Negative) Urine Nitrite Negative (Negative) Urine Bilirubin Negative (Negative) Urine Urobilinogen <2.0 (<2.0) mg/dL Ur Leukocyte Esterase Negative (Negative) Urine RBC 2 (0-5) /hpf Urine WBC 2 (0-5) /hpf Ur Squamous Epith Cells 3 (0-4) /hpf Amorphous Sediment Rare H (None) /hpf Urine Mucus Occasional H (None) /hpf Urine HCG, Qual Not Detected (Not Detectd) 04/03/17 04/03/17 04/03/17 Range/Units 17:30 17:30 17:30 WBC 8.1 (3.8-10.6) k/uL RBC 4.22 (3.80-5.40) m/uL Hgb 13.2 (11.4-16.0) gm/dL Hct 39.7 (34.0-46.0) % MCV 94.1 (80.0-100.0) fL MCH 31.2 (25.0-35.0) pg MCHC 33.2 (31.0-37.0) g/dL RDW 12.5 (11.5-15.5) % Plt Count 343 (150-450) k/uL Neutrophils % 54 % Lymphocytes % 36 % Monocytes % 5 % Eosinophils % 3 % Basophils % 1 % Neutrophils # 4.4 (1.3-7.7) k/uL Lymphocytes # 2.9 (1.0-4.8) k/uL Monocytes # 0.4 (0-1.0) k/uL Eosinophils # 0.2 (0-0.7) k/uL Basophils # 0.0 (0-0.2) k/uL PT 10.3 (9.0-12.0) sec INR 1.1 (<1.2) APTT 26.1 (22.0-30.0) sec Sodium (137-145) mmol/L Potassium (3.5-5.1) mmol/L Chloride (98-107) mmol/L Carbon Dioxide (22-30) mmol/L Anion Gap mmol/L BUN (7-17) mg/dL Creatinine (0.52-1.04) mg/dL Est GFR (MDRD) Af Amer (>60 ml/min/1.73 sqM) Est GFR (MDRD) Non-Af (>60 ml/min/1.73 sqM) Glucose (74-99) mg/dL Calcium (8.4-10.2) mg/dL Total Bilirubin (0.2-1.3) mg/dL AST (14-36) U/L ALT (9-52) U/L Alkaline Phosphatase (38-126) U/L Total Protein (6.3-8.2) g/dL Albumin (3.5-5.0) g/dL Amylase 110 (30-110) U/L Lipase 241 (23-300) U/L Urine Color Urine Appearance (Clear) Urine pH (5.0-8.0) Ur Specific [place] (1.001-1.035) Urine Protein (Negative) Urine Glucose (UA) (Negative) Urine Ketones (Negative) Urine Blood (Negative) Urine Nitrite (Negative) Urine Bilirubin (Negative) Urine Urobilinogen (<2.0) mg/dL Ur Leukocyte Esterase (Negative) Urine RBC (0-5) /hpf Urine WBC (0-5) /hpf Ur Squamous Epith Cells (0-4) /hpf Amorphous Sediment (None) /hpf Urine Mucus (None) /hpf Urine HCG, Qual (Not Detectd) Disposition Clinical Impression: Vomiting, Left upper quadrant pain Disposition: HOME SELF-CARE Condition: Good Instructions: Abdominal Pain (ED) Additional Instructions: Patient advised to follow-up with primary care physician. Return to the emergency department if any alarming signs or symptoms occur. Prescriptions: Ciprofloxacin HCl [Cipro] 500 mg PO BID 3 Days #6 tab HYDROcodone/APAP 5-325MG [[place] 5-325] 1 tab PO Q6HR PRN #10 tab PRN Reason: Pain Referrals: Sunilkumar,Mini, MD [Primary Care Provider] - 1-2 days Time of Disposition: 19:02
[2017-04-03 18:00] LABS: Basophils % (A) 1 %; Eosinophils # (A) 0.2 k/uL (0-0.7); Eosinophils % (A) 3 %; HCT 39.7 % (34.0-46.0); HGB 13.2 gm/dL (11.4-16.0); Lymphocytes # (A) 2.9 k/uL (1.0-4.8); Lymphocytes % (A) 36 %; MCH 31.2 pg (25.0-35.0); MCHC 33.2 g/dL (31.0-37.0); MCV 94.1 fL (80.0-100.0); Mean Platelet Volume 7.4; Monocytes # (A) 0.4 k/uL (0-1.0); Monocytes % (A) 5 %; Neutrophils # (A) 4.4 k/uL (1.3-7.7); Neutrophils % (A) 54 %; Platelet Count 343 k/uL (150-450); RBC 4.22 m/uL (3.80-5.40); RDW 12.5 % (11.5-15.5); WBC 8.1 k/uL (3.8-10.6)
[2017-04-03 18:14] LABS: ALT 26 U/L (9-52); AST 15 U/L (14-36); Albumin 4.4 g/dL (3.5-5.0); Alkaline Phosphatase 67 U/L (38-126); Anion Gap 9 mmol/L; Blood Urea Nitrogen 9 mg/dL (7-17); Carbon Dioxide 29 mmol/L (22-30); Chloride 102 mmol/L (98-107); Glucose 79 mg/dL (74-99); Potassium 3.9 mmol/L (3.5-5.1); Sodium 140 mmol/L (137-145); Total Bilirubin 0.3 mg/dL (0.2-1.3); Total Protein 7.1 g/dL (6.3-8.2)
[2017-04-03 18:18] LABS: INR 1.1 (<1.2); Partial Thromboplastin Time 26.1 sec (22.0-30.0); Prothrombin Time 10.3 sec (9.0-12.0)
--- NOTE | 2017-04-03 18:33 | CT ---
EXAMINATION TYPE: CT abdomen pelvis wo con DATE OF EXAM: 04/03/2017 COMPARISON: November 25, 2016 HISTORY: Left upper quadrant pain with nausea, vomiting and painful urination for [address] DLP: 318.9 mGycm Automated exposure control for dose reduction was used. TECHNIQUE: Helical acquisition of images was performed from the lung bases through the pelvis. FINDINGS: Evaluation of the visceral organs of the abdomen and pelvis is suboptimal without the use of intraven ous contrast. LUNG BASES: No significant abnormality is appreciated. Liver is unremarkable. Gallbladder surgically absent. PANCREAS: No significant abnormality is seen. SPLEEN: No significant abnormality is seen. ADRENALS: No significant abnormality is seen. KIDNEYS: No significant abnormality is seen. FREE AIR: No free air is visualized RETROPERITONEAL ADENOPATHY: None visualized REPRODUCTIVE ORGANS: No significant abnormality is seen URINARY BLADDER: No significant abnormality is seen. PELVIC ADENOPATHY: None visualized. OSSEOUS STRUCTURES: No significant abnormality is seen. BOWEL: No significant abnormality is seen. Calcification is identified in the expected location the appendix. Appears to be extraluminal but it could be an appendicolith. No normal or abnormal appearin g appendix is identified. OTHER: None IMPRESSION: NO FINDINGS ARE IDENTIFIED WHICH WOULD CONTRIBUTE TO THE PATIENT'S SYMPTOMS ON THIS NONCONTRAST EXAMI [facility] [place].
[2017-04-03 18:46] LABS: Amylase 110 U/L (30-110); Lipase 241 U/L (23-300)
[2017-04-03 19:13] VITALS: BP 119/65; PULSE 87; RESP 16; TEMP 98.5
== END 2017-04-03 19:17 | disposition home or self-care (01) ==
LOC: EC 15:25
DX: R11.10 Vomiting, unspecified (principal); R10.32 Left lower quadrant pain; R35.0 Frequency of micturition; Z98.51 Tubal ligation status; Z90.49 Acquired absence of other specified parts of digestive tract; Z88.8 Allergy status to other drugs, medicaments and biological substances
CPT/HCPCS: 36415; 80053; 82150; 83690; 85025; 85610; 85730; 81001; 81025; 87086; 74176; 99285; 96374; 96375 ×2; 96361; J1170; J2405; J1885

== ENCOUNTER 2017-05-25 16:29 | Emergency (ER) | payer OTHER ==
[2017-05-25 16:41] VITALS: RESP 18; TEMP 98.8
--- NOTE | 2017-05-25 16:47 | ED ---
Upper Extremity HPI - General Chief Complaint: Extremity Injury, Upper Stated Complaint: Fell/shoulder pain Time Seen by Provider: 05/25/17 16:37 Source: patient, RN notes reviewed Mode of arrival: ambulatory Limitations: no limitations - History of Present Illness Initial Comments: This is a 32-year-old female who presents to the emergency department with chief complaint of left shoulder injury. Patient states that yesterday morning she slipped on ice and fell directly onto her left shoulder. She states that initially she experienced no pain. Then, she woke up at 2 AM in the morning with left shoulder pain. She states she has been unable to sleep due to the pain. She states that she has taken Tylenol and ibuprofen. Denies any other injuries or trauma. Denies any head or neck pain. Denies fever, chills, chest pain, shortness of breath, abdominal pain, nausea or vomiting, constipation or diarrhea, dysuria or hematuria, numbness or tingling, headache or vision changes. - Related Data Previous Rx's Medication Instructions Recorded Ondansetron Odt [Zofran ODT] 4 mg PO Q8HR PRN #20 tab 04/01/17 Ciprofloxacin HCl [Cipro] 500 mg PO BID 3 Days #6 tab 04/03/17 HYDROcodone/APAP 5-325MG [[place] 1 tab PO Q6HR PRN #10 tab 04/03/17 5-325] Allergies Allergy/AdvReac Type Severity Reaction Status Date / Time metoclopramide [From Reglan] Allergy Mild Rapid Verified 05/25/17 16:41 Heart Rate prochlorperazine maleate AdvReac Rapid Verified 05/25/17 16:41 [From Compazine] Heart Rate Review of Systems ROS Statement: Those systems with pertinent positive or pertinent negative responses have been documented in the HPI. ROS Other: All systems not noted in ROS Statement are negative. Past Medical History Past Medical History: No Reported History Additional Past Medical History / Comment(s): COLITIS, uti's, kidney infections , interstitial cystitis, kidney stones History of Any Multi-Drug Resistant Organisms: None Reported Past Surgical History: Appendectomy, Cholecystectomy, Hysterectomy, Tubal Ligation Additional Past Surgical History / Comment(s): novasure ENDOMETRIAL ABLATION Past Anesthesia/Blood Transfusion Reactions: No Reported Reaction Past Psychological History: No Psychological Hx Reported Smoking Status: Never smoker Past Alcohol Use History: None Reported Past Drug Use History: None Reported - Past Family History Mother Family Medical History: Cancer Father Family Medical History: No Reported History General Exam - General Exam Comments Initial Comments: General: Awake and alert, well-developed; in no apparent distress. HEENT: Head atraumatic, normocephalic. Pupils are equal, round and reactive to light. Extraocular movements intact. Oropharynx moist without erythema or exudate. Neck: Supple. Normal ROM. No tenderness. Cardiovascular: Regular rate and rhythm. No murmurs, rubs or gallops. Chest symmetrical. Respiratory: Lungs clear to auscultation bilaterally. No wheezes, rales or rhonchi. Normal respiratory effort with no use of accessory muscles. Musculoskeletal: Limited range of motion of the left shoulder with flexion, abduction, abduction due to pain. There is tenderness on palpation of the scapular spine. No clavicular or before meals joint tenderness. Sensation is intact. Radial pulses are 2+ equal and palpable bilaterally. Skin: Campus, warm and dry without rashes or lesions. Neurological: Alert and oriented x3. CN II-XII grossly intact. Speech is fluent and answers are appropriate. No focal neuro deficits. Psychiatric: Normal mood and affect. No overt signs of depression or anxiety noted. Limitations: no limitations Course Vital Signs 05/25/17 16:38 Temperature 98.8 F Pulse Rate 133 H Respiratory 18 Rate Blood Pressure 125/77 O2 Sat by Pulse 99 Oximetry Medical Decision Making - Medical Decision Making This is a 32-year-old female who presents to the emergency department with chief complaint of left shoulder injury. Scapular spine is tender on palpation. Patient has limited range of motion due to pain. X-rays of left shoulder and scapula revealed no acute abnormalities. Patient likely suffering from contusion. She is in no acute distress and will be discharged home. Recommended following up with her primary care provider, rest, ice and anti- inflammatories. Patient is in agreement with plan and voices understanding. All questions were answered. - Radiology Data Radiology results: report reviewed X-ray left shoulder impression: Negative left shoulder exam. X-ray left scapula impression: Normal left scapula exam. Disposition Clinical Impression: Contusion of left shoulder Disposition: HOME SELF-CARE Condition: Good Instructions: Shoulder Pain (ED), Contusion in Adults (ED) Additional Instructions: Please rest, ice and take Tylenol or ibuprofen as needed. Please follow up with primary care provider within 1-2 days. Return to emergency department if symptoms should worsen or any concerns arise. Referrals: Mara Jack MD [Primary Care Provider] - 1-2 days Time of Disposition: 17:23
--- NOTE | 2017-05-25 17:09 | XR ---
EXAMINATION TYPE: XR shoulder complete LT DATE OF EXAM: 05/25/2017 COMPARISON: NONE HISTORY: Shoulder pain TECHNIQUE: 3 views FINDINGS: I see no fracture nor dislocation. Joint spaces are fairly normal. There are no pathologic calcifications. IMPRESSION: Negative left shoulder exam.
--- NOTE | 2017-05-25 17:10 | XR ---
EXAMINATION TYPE: XR scapula LT DATE OF EXAM: 05/25/2017 COMPARISON: NONE HISTORY: Pain TECHNIQUE: 2 views FINDINGS: I see no fracture nor dislocation. Soft tissues appear normal. IMPRESSION: Normal left scapula exam.
[2017-05-25 17:18] VITALS: BP 121/60; PULSE 104
== END 2017-05-25 17:26 | disposition home or self-care (01) ==
LOC: EC 16:29
DX: S40.012A Contusion of left shoulder, initial encounter (principal); Z88.8 Allergy status to other drugs, medicaments and biological substances; W00.0XXA Fall on same level due to ice and snow, initial encounter
CPT/HCPCS: 99283

== ENCOUNTER 2017-06-12 22:54 | Emergency (ER) | payer OTHER ==
[2017-06-12 23:10] VITALS: RESP 18
[2017-06-13] MEDS ORDERED: KETOROLAC 30 MG/ML 1 ML VIAL IVP STA ×2 (00:35→02:15)
[2017-06-13] MEDS ORDERED: ONDANSETRON 4 MG/2 ML VIAL IVP STA ×2 (00:35→01:16)
--- NOTE | 2017-06-13 00:38 | ED ---
Nausea/Vomiting/Diarrhea HPI - General Chief complaint: Nausea/Vomiting/Diarrhea Stated complaint: VOMITING Time Seen by Provider: 06/13/17 00:29 Source: patient, RN notes reviewed Mode of arrival: ambulatory Limitations: no limitations - History of Present Illness Initial comments: This is a 32-year-old female who presents to the emergency department with chief complaint of vomiting and right flank pain. Patient states that today she has had multiple episodes of vomiting. She states that she also developed right-sided flank pain that is sharp in nature. She states that she is having burning with urination. She does report a history of frequent kidney stones. She states that this pain feels similar to her previous episodes. Patient also complains of a rash on both of her arms that also developed today. She does report fevers and chills. Denies diarrhea or constipation, chest pain or shortness of breath. - Related Data Previous Rx's Medication Instructions Recorded Ondansetron Odt [Zofran ODT] 4 mg PO Q8HR PRN #20 tab 04/01/17 Ciprofloxacin HCl [Cipro] 500 mg PO BID 3 Days #6 tab 04/03/17 HYDROcodone/APAP 5-325MG [[place] 1 tab PO Q6HR PRN #10 tab 04/03/17 5-325] Allergies Allergy/AdvReac Type Severity Reaction Status Date / Time metoclopramide [From Reglan] Allergy Mild Rapid Verified 06/12/17 23:10 Heart Rate prochlorperazine maleate AdvReac Rapid Verified 06/12/17 23:10 [From Compazine] Heart Rate Review of Systems ROS Statement: Those systems with pertinent positive or pertinent negative responses have been documented in the HPI. ROS Other: All systems not noted in ROS Statement are negative. Past Medical History Past Medical History: No Reported History Additional Past Medical History / Comment(s): COLITIS, uti's, kidney infections , interstitial cystitis, kidney stones History of Any Multi-Drug Resistant Organisms: None Reported Past Surgical History: Appendectomy, Cholecystectomy, Hysterectomy, Tubal Ligation Additional Past Surgical History / Comment(s): novasure ENDOMETRIAL ABLATION Past Anesthesia/Blood Transfusion Reactions: No Reported Reaction Past Psychological History: No Psychological Hx Reported Smoking Status: Never smoker Past Alcohol Use History: None Reported Past Drug Use History: None Reported - Past Family History Mother Family Medical History: Cancer Father Family Medical History: No Reported History General Exam - General Exam Comments Initial Comments: General: Awake and alert, well-developed; in no apparent distress. HEENT: Head atraumatic, normocephalic. Pupils are equal, round and reactive to light. Extraocular movements intact. Oropharynx moist without erythema or exudate. Neck: Supple. Normal ROM. Cardiovascular: Regular rate and rhythm. No murmurs, rubs or gallops. Chest symmetrical. Respiratory: Lungs clear to auscultation bilaterally. No wheezes, rales or rhonchi. Normal respiratory effort with no use of accessory muscles. Abdomen: Soft, non-distended. Tenderness on palpation of suprapubic region. No rigidity, rebound or guarding. Normal bowel sounds in all 4 quadrants. Right -sided CVA tenderness. Musculoskeletal: Normal ROM, no tenderness bilateral upper and lower extremities. Skin: [place], warm and dry. There is an erythematous maculopapular rash with circular lesions on bilateral arms and hips. Neurological: Alert and oriented x3. CN II-XII grossly intact. Speech is fluent and answers are appropriate. No focal neuro deficits. Psychiatric: Normal mood and affect. No overt signs of depression or anxiety noted. Limitations: no limitations Course Vital Signs 06/12/17 23:07 Temperature 98.9 F Pulse Rate 101 H Respiratory 18 Rate Blood Pressure 126/71 O2 Sat by Pulse 100 Oximetry - Reevaluation(s) Reevaluation #1: Patient states that Zofran has helped her nausea and vomiting. She does still complain of right flank pain and discomfort. Lab and x-ray findings were discussed with patient. Recommend computed tomography scan to rule out kidney stone as it was not visualized and KUB. Patient is in agreement and would like to have a computed tomography scan performed. Results are pending. 06/13/17 02:16 Medical Decision Making - Medical Decision Making This is a 33-year-old female who presents to the emergency department with chief complaint of right flank pain and vomiting. Symptoms have been present for one day. CBC and CMP are unremarkable. UA did reveal 13 red blood cells, however no signs of infection. X-ray KUB revealed no signs for acute abnormalities. Patient was given pain medication and antiemetics while in the emergency department. Improvement in patient's symptoms was noted. Computed tomography scan of abdomen and pelvis without contrast was obtained. No cause for patient's symptoms is seen on computed tomography scan.. No evidence of kidney stones. Vital signs are stable and she is in no acute distress. She will be discharged home. She does state that she has an appointment scheduled for tomorrow with her primary care provider. Patient is in agreement for discharge and voices understanding. All questions were answered. - Lab Data Result diagrams: 06/13/17 00:57 06/13/17 00:57 Lab Results 06/13/17 06/13/17 06/13/17 Range/Units 00:57 00:57 00:57 WBC 8.2 (3.8-10.6) k/uL RBC 3.66 L (3.80-5.40) m/uL Hgb 11.6 (11.4-16.0) gm/dL Hct 33.2 L (34.0-46.0) % MCV 90.5 (80.0-100.0) fL MCH 31.6 (25.0-35.0) pg MCHC 34.9 (31.0-37.0) g/dL RDW 11.9 (11.5-15.5) % Plt Count 380 (150-450) k/uL Neutrophils % 51 % Lymphocytes % 38 % Monocytes % 6 % Eosinophils % 2 % Basophils % 1 % Neutrophils # 4.1 (1.3-7.7) k/uL Lymphocytes # 3.1 (1.0-4.8) k/uL Monocytes # 0.5 (0-1.0) k/uL Eosinophils # 0.2 (0-0.7) k/uL Basophils # 0.0 (0-0.2) k/uL Sodium 143 (137-145) mmol/L Potassium 3.8 (3.5-5.1) mmol/L Chloride 104 (98-107) mmol/L Carbon Dioxide 28 (22-30) mmol/L Anion Gap 11 mmol/L BUN 11 (7-17) mg/dL Creatinine 0.62 (0.52-1.04) mg/dL Est GFR (CKD-EPI)AfAm >90 (>60 ml/min/1.73 sqM) Est GFR (CKD-EPI)NonAf >90 (>60 ml/min/1.73 sqM) Glucose 85 (74-99) mg/dL Calcium 9.5 (8.4-10.2) mg/dL Total Bilirubin 0.2 (0.2-1.3) mg/dL AST 13 L (14-36) U/L ALT 24 (9-52) U/L Alkaline Phosphatase 59 (38-126) U/L Total Protein 6.5 (6.3-8.2) g/dL Albumin 3.9 (3.5-5.0) g/dL Amylase 71 (30-110) U/L Lipase 45 (23-300) U/L Urine Color Urine Appearance (Clear) Urine pH (5.0-8.0) Ur Specific [place] (1.001-1.035) Urine Protein (Negative) Urine Glucose (UA) (Negative) Urine Ketones (Negative) Urine Blood (Negative) Urine Nitrite (Negative) Urine Bilirubin (Negative) Urine Urobilinogen (<2.0) mg/dL Ur Leukocyte Esterase (Negative) Urine RBC (0-5) /hpf Urine WBC (0-5) /hpf Ur Squamous Epith Cells (0-4) /hpf Amorphous Sediment (None) /hpf Urine Mucus (None) /hpf 06/13/17 Range/Units 00:57 WBC (3.8-10.6) k/uL RBC (3.80-5.40) m/uL Hgb (11.4-16.0) gm/dL Hct (34.0-46.0) % MCV (80.0-100.0) fL MCH (25.0-35.0) pg MCHC (31.0-37.0) g/dL RDW (11.5-15.5) % Plt Count (150-450) k/uL Neutrophils % % Lymphocytes % % Monocytes % % Eosinophils % % Basophils % % Neutrophils # (1.3-7.7) k/uL Lymphocytes # (1.0-4.8) k/uL Monocytes # (0-1.0) k/uL Eosinophils # (0-0.7) k/uL Basophils # (0-0.2) k/uL Sodium (137-145) mmol/L Potassium (3.5-5.1) mmol/L Chloride (98-107) mmol/L Carbon Dioxide (22-30) mmol/L Anion Gap mmol/L BUN (7-17) mg/dL Creatinine (0.52-1.04) mg/dL Est GFR (CKD-EPI)AfAm (>60 ml/min/1.73 sqM) Est GFR (CKD-EPI)NonAf (>60 ml/min/1.73 sqM) Glucose (74-99) mg/dL Calcium (8.4-10.2) mg/dL Total Bilirubin (0.2-1.3) mg/dL AST (14-36) U/L ALT (9-52) U/L Alkaline Phosphatase (38-126) U/L Total Protein (6.3-8.2) g/dL Albumin (3.5-5.0) g/dL Amylase (30-110) U/L Lipase (23-300) U/L Urine Color Yellow Urine Appearance Cloudy H (Clear) Urine pH 7.0 (5.0-8.0) Ur Specific [place] 1.026 (1.001-1.035) Urine Protein Trace H (Negative) Urine Glucose (UA) Negative (Negative) Urine Ketones Negative (Negative) Urine Blood Negative (Negative) Urine Nitrite Negative (Negative) Urine Bilirubin Negative (Negative) Urine Urobilinogen 2.0 (<2.0) mg/dL Ur Leukocyte Esterase Negative (Negative) Urine RBC 13 H (0-5) /hpf Urine WBC <1 (0-5) /hpf Ur Squamous Epith Cells 12 H (0-4) /hpf Amorphous Sediment Rare H (None) /hpf Urine Mucus Many H (None) /hpf - Radiology Data Radiology results: report reviewed X-ray KUB findings: There are clips from cholecystectomy. There is no sign of intestinal obstruction or pneumoperitoneum. Fecal pattern is normal. Bowel gas pattern is normal. Lung bases are clear. There are no pathologic calcifications. Impression: Nonacute abdomen. CT abdomen and pelvis without contrast impression: Negative computed tomography scan of the abdomen and pelvis. I do not see a cause for patient's symptoms. No adverse change compared to old exam. Disposition Clinical Impression: Flank pain, Hematuria Disposition: HOME SELF-CARE Condition: Good Instructions: Flank Pain (ED), Acute Nausea and Vomiting (ED), Hematuria (ED) Additional Instructions: Please follow-up with your primary care provider tomorrow as scheduled. Please follow up with primary care provider within 1-2 days. Return to emergency department if symptoms should worsen or any concerns arise. Referrals: Mara Jack MD [Primary Care Provider] - 1-2 days Time of Disposition: 03:15
[2017-06-13 01:14] LABS: Amorphous Sediment,Urine Rare /hpf; Appearance,Urine Cloudy (Clear); Bilirubin,Urine Negative (Negative); Blood,Urine Negative (Negative); Color,Urine Yellow; Glucose,Urine (UA) Negative (Negative); Ketones,Urine Negative (Negative); Leukocyte Esterase,Urine Negative (Negative); Mucus,Urine Many /hpf; Nitrite,Urine Negative (Negative); Protein,Urine Trace (Negative); RBC,Urine 13 /hpf (0-5); Specific Gravity,Urine 1.026 (1.001-1.035); Squamous Epithelial Cell,Urine 12 /hpf (0-4); WBC,Urine <1 /hpf (0-5)
[2017-06-13 01:18] LABS: Basophils % (A) 1 %; Eosinophils # (A) 0.2 k/uL (0-0.7); Eosinophils % (A) 2 %; HCT 33.2 % (34.0-46.0); HGB 11.6 gm/dL (11.4-16.0); Lymphocytes # (A) 3.1 k/uL (1.0-4.8); Lymphocytes % (A) 38 %; MCH 31.6 pg (25.0-35.0); MCHC 34.9 g/dL (31.0-37.0); MCV 90.5 fL (80.0-100.0); Mean Platelet Volume 6.6; Monocytes # (A) 0.5 k/uL (0-1.0); Monocytes % (A) 6 %; Neutrophils # (A) 4.1 k/uL (1.3-7.7); Neutrophils % (A) 51 %; Platelet Count 380 k/uL (150-450); RBC 3.66 m/uL (3.80-5.40); RDW 11.9 % (11.5-15.5); WBC 8.2 k/uL (3.8-10.6)
[2017-06-13 01:26] LABS: ALT 24 U/L (9-52); AST 13 U/L (14-36); Albumin 3.9 g/dL (3.5-5.0); Alkaline Phosphatase 59 U/L (38-126); Amylase 71 U/L (30-110); Anion Gap 11 mmol/L; Blood Urea Nitrogen 11 mg/dL (7-17); Calcium 9.5 mg/dL (8.4-10.2); Carbon Dioxide 28 mmol/L (22-30); Chloride 104 mmol/L (98-107); Glucose 85 mg/dL (74-99); Lipase 45 U/L (23-300); Potassium 3.8 mmol/L (3.5-5.1); Sodium 143 mmol/L (137-145); Total Bilirubin 0.2 mg/dL (0.2-1.3); Total Protein 6.5 g/dL (6.3-8.2)
--- NOTE | 2017-06-13 01:47 | XR ---
EXAMINATION TYPE: XR KUB DATE OF EXAM: 06/13/2017 COMPARISON: 04/01/2017 HISTORY: Vomiting TECHNIQUE: 2 views FINDINGS: There are clips from cholecystectomy. There is no sign of intestinal obstruction or pneumop eritoneum. Fecal pattern is normal. Bowel gas pattern is normal. Lung bases are clear. There are no p athologic calcifications. IMPRESSION: Nonacute abdomen.
[2017-06-13] MEDS ORDERED: MORPHINE SULF 5MG/10ML VL IVP STA (02:48)
--- NOTE | 2017-06-13 03:03 | CT ---
EXAMINATION TYPE: CT abdomen pelvis wo con DATE OF EXAM: 06/13/2017 COMPARISON: 04/03/2017 HISTORY: Prior on synapse, Vomiting, Painful Urination, hx: Cholecystectomy, Appendectomy,and tubal, renal stone protocol CT DLP: 351.10 mGycm Automated exposure control for dose reduction was used. TECHNIQUE: Helical acquisition of images was performed from the lung bases through the pelvis. FINDINGS: The lung bases are clear of infiltrate. There is no pleural effusion. Heart size is normal. There is no pericardial effusion. Liver spleen pancreas appear normal. Bile ducts are not dilated. There are clips from cholecystectomy . There is no adrenal mass. Kidneys have normal size and contour. There is no hydronephrosis. There is no retroperitoneal adenopathy. Bladder distends smoothly. There is no free fluid in the pelvis. I see no intestinal wall thickening. There are no dilated loops. Small bowel appears normal. Appendix is n ot definitely seen. There is no sign of appendicitis. Lumbar spine appears normal. I see no bony dest ructive process. There is a small posterior disc bulge at L5-S1. IMPRESSION: NEGATIVE CT SCAN OF THE ABDOMEN AND PELVIS. I DO NOT SEE A CAUSE FOR PATIENT'S SYMPTOMS. NO ADVERSE C HANGE COMPARED TO OLD EXAM.
[2017-06-13 03:20] VITALS: BP 108/66; PULSE 67; TEMP 98.2
== END 2017-06-13 03:19 | disposition home or self-care (01) ==
LOC: EC 22:54
DX: R10.9 Unspecified abdominal pain (principal); R31.9 Hematuria, unspecified; R11.10 Vomiting, unspecified; R21 Rash and other nonspecific skin eruption; Z87.19 Personal history of other diseases of the digestive system; Z87.440 Personal history of urinary (tract) infections; Z87.442 Personal history of urinary calculi; Z90.49 Acquired absence of other specified parts of digestive tract; Z90.710 Acquired absence of both cervix and uterus; Z98.51 Tubal ligation status; Z88.8 Allergy status to other drugs, medicaments and biological substances
CPT/HCPCS: 36415; 80053; 82150; 83690; 85025; 81001; 87086; 74018; 74176; 99284; 96374; 96375 ×2; 96376 ×2; J2405; J1885; J2270

== ENCOUNTER 2017-09-20 20:01 | Emergency (ER) | payer OTHER ==
[2017-09-20 20:11] VITALS: RESP 18
[2017-09-20] MEDS ORDERED: SODIUM CHLORIDE 0.9% 1,000 ML IV ONE (20:23)
[2017-09-20] MEDS ORDERED: ONDANSETRON 4 MG/2 ML VIAL IVP STA (20:23)
[2017-09-20] MEDS ORDERED: KETOROLAC 30 MG/ML 1 ML VIAL IVP STA (20:23)
[2017-09-20] MEDS ORDERED: PHENAZOPYRIDINE 200 MG TAB PO STA (20:23)
--- NOTE | 2017-09-20 20:33 | ED ---
Nausea/Vomiting/Diarrhea HPI - General Chief complaint: Nausea/Vomiting/Diarrhea Stated complaint: vomiting/blood in urine Time Seen by Provider: 09/20/17 20:11 Source: patient Mode of arrival: ambulatory Limitations: no limitations - History of Present Illness Initial comments: 32-year-old female patient presents to emergency department today for evaluation of vomiting, dysuria, and hematuria since Tuesday. Patient states that she does have a history of frequent urinary tract infection, kidney infection, and kidney stones. Patient states that she is having bilateral flank pain but worse on the left. States that she has attempted to eat crackers but is unable to keep down any food or fluids. States that her upper abdomen is sore from puking so much. States that she is having significant burning with urination and suprapubic pressure and discomfort. She states that she did feel chilled this morning however has not checked her temperature. States that she did have frequent diarrhea on Tuesday however that has resolved. She denies any recent travel or sick contacts. Denies any recent antibiotic use. She denies taking any medications for symptoms. Patient denies any recent rash, shortness breath, chest pain, back pain, numbness, tingling, dizziness, weakness, headache, visual changes, or any other complaints. - Related Data Previous Rx's Medication Instructions Recorded Ondansetron [Zofran ODT] 4 mg PO Q8HR PRN #10 tab 09/20/17 Sulfamethoxazole/Trimethoprim 1 each PO BID #14 tablet 09/20/17 [Bactrim DS 800-160 mg] Allergies Allergy/AdvReac Type Severity Reaction Status Date / Time metoclopramide [From Reglan] Allergy Mild Rapid Verified 09/20/17 20:41 Heart Rate prochlorperazine maleate AdvReac Rapid Verified 09/20/17 20:41 [From Compazine] Heart Rate Review of Systems ROS Statement: Those systems with pertinent positive or pertinent negative responses have been documented in the HPI. ROS Other: All systems not noted in ROS Statement are negative. Past Medical History Past Medical History: No Reported History Additional Past Medical History / Comment(s): COLITIS, uti's, kidney infections , interstitial cystitis, kidney stones History of Any Multi-Drug Resistant Organisms: None Reported Past Surgical History: Appendectomy, Cholecystectomy, Hysterectomy, Tubal Ligation Additional Past Surgical History / Comment(s): novasure ENDOMETRIAL ABLATION Past Anesthesia/Blood Transfusion Reactions: No Reported Reaction Past Psychological History: No Psychological Hx Reported Smoking Status: Never smoker Past Alcohol Use History: None Reported Past Drug Use History: None Reported - Past Family History Mother Family Medical History: Cancer Father Family Medical History: No Reported History General Exam Limitations: no limitations General appearance: alert, in no apparent distress, other (This is a well- developed, well-nourished adult female patient in no acute distress. Vital signs upon presentation are temperature 98.8F, pulse 97, respirations 18, blood pressure 128/89, pulse ox 100% on room air.) Eye exam: Present: normal appearance, PERRL, EOMI. Absent: scleral icterus, conjunctival injection, periorbital swelling ENT exam: Present: normal exam, normal oropharynx, mucous membranes moist Respiratory exam: Present: normal lung sounds bilaterally. Absent: respiratory distress, wheezes, rales, rhonchi, stridor Cardiovascular Exam: Present: regular rate, normal rhythm, normal heart sounds. Absent: systolic murmur, diastolic murmur, rubs, gallop, clicks GI/Abdominal exam: Present: soft, tenderness (Upper abdominal tenderness.), normal bowel sounds. Absent: distended, guarding, rebound, rigid Back exam: Present: normal inspection, CVA tenderness (R), CVA tenderness (L) Neurological exam: Present: alert, oriented X3, CN II-XII intact Psychiatric exam: Present: normal affect, normal mood Skin exam: Present: warm, dry, intact, normal color. Absent: rash Course Vital Signs 09/20/17 20:09 Temperature 98.8 F Pulse Rate 97 Respiratory 18 Rate Blood Pressure 128/89 O2 Sat by Pulse 100 Oximetry Medical Decision Making - Medical Decision Making 32-year-old female patient presents to the emergency department today for evaluation of flank pain, hematuria, and dysuria. Physical examination did reveal left flank tenderness. Labs reviewed and are unremarkable. Urinalysis did show cloudy appearance with trace protein, 1+ ketones, moderate blood, small leukocyte esterase, 8 red blood cells, 11 screen is epithelial cells, rare bacteria, 3 hyaline casts, and many urine mucus. I did discuss findings and results with the patient. As she is having symptoms we will treat her for urinary tract infection. She'll be discharged home with prescription for antibiotics and Zofran. She is instructed to follow-up with her primary care physician for recheck as soon as possible. Return parameters discussed in detail. She verbalizes understanding and agrees with this plan. - Lab Data Result diagrams: 09/20/17 20:35 09/20/17 20:35 Lab Results 09/20/17 09/20/17 09/20/17 Range/Units 20:35 20:35 20:35 WBC 8.4 (3.8-10.6) k/uL RBC 4.20 (3.80-5.40) m/uL Hgb 13.2 (11.4-16.0) gm/dL Hct 38.3 (34.0-46.0) % MCV 91.4 (80.0-100.0) fL MCH 31.4 (25.0-35.0) pg MCHC 34.4 (31.0-37.0) g/dL RDW 11.9 (11.5-15.5) % Plt Count 333 (150-450) k/uL Neutrophils % 54 % Lymphocytes % 36 % Monocytes % 6 % Eosinophils % 2 % Basophils % 1 % Neutrophils # 4.5 (1.3-7.7) k/uL Lymphocytes # 3.0 (1.0-4.8) k/uL Monocytes # 0.5 (0-1.0) k/uL Eosinophils # 0.2 (0-0.7) k/uL Basophils # 0.0 (0-0.2) k/uL Sodium 140 (137-145) mmol/L Potassium 3.8 (3.5-5.1) mmol/L Chloride 103 (98-107) mmol/L Carbon Dioxide 24 (22-30) mmol/L Anion Gap 13 mmol/L BUN 10 (7-17) mg/dL Creatinine 0.60 (0.52-1.04) mg/dL Est GFR (CKD-EPI)AfAm >90 (>60 ml/min/1.73 sqM) Est GFR (CKD-EPI)NonAf >90 (>60 ml/min/1.73 sqM) Glucose 90 (74-99) mg/dL Calcium 9.3 (8.4-10.2) mg/dL Total Bilirubin 0.2 (0.2-1.3) mg/dL AST 22 (14-36) U/L ALT 31 (9-52) U/L Alkaline Phosphatase 67 (38-126) U/L Total Protein 7.4 (6.3-8.2) g/dL Albumin 4.7 (3.5-5.0) g/dL Amylase 78 (30-110) U/L Lipase 75 (23-300) U/L Urine Color Urine Appearance (Clear) Urine pH (5.0-8.0) Ur Specific [place] (1.001-1.035) Urine Protein (Negative) Urine Glucose (UA) (Negative) Urine Ketones (Negative) Urine Blood (Negative) Urine Nitrite (Negative) Urine Bilirubin (Negative) Urine Urobilinogen (<2.0) mg/dL Ur Leukocyte Esterase (Negative) Urine RBC (0-5) /hpf Urine WBC (0-5) /hpf Ur Squamous Epith Cells (0-4) /hpf Urine Bacteria (None) /hpf Hyaline Casts (0-2) /lpf Urine Mucus (None) /hpf Urine HCG, Qual Not Detected (Not Detectd) 09/20/17 Range/Units 20:35 WBC (3.8-10.6) k/uL RBC (3.80-5.40) m/uL Hgb (11.4-16.0) gm/dL Hct (34.0-46.0) % MCV (80.0-100.0) fL MCH (25.0-35.0) pg MCHC (31.0-37.0) g/dL RDW (11.5-15.5) % Plt Count (150-450) k/uL Neutrophils % % Lymphocytes % % Monocytes % % Eosinophils % % Basophils % % Neutrophils # (1.3-7.7) k/uL Lymphocytes # (1.0-4.8) k/uL Monocytes # (0-1.0) k/uL Eosinophils # (0-0.7) k/uL Basophils # (0-0.2) k/uL Sodium (137-145) mmol/L Potassium (3.5-5.1) mmol/L Chloride (98-107) mmol/L Carbon Dioxide (22-30) mmol/L Anion Gap mmol/L BUN (7-17) mg/dL Creatinine (0.52-1.04) mg/dL Est GFR (CKD-EPI)AfAm (>60 ml/min/1.73 sqM) Est GFR (CKD-EPI)NonAf (>60 ml/min/1.73 sqM) Glucose (74-99) mg/dL Calcium (8.4-10.2) mg/dL Total Bilirubin (0.2-1.3) mg/dL AST (14-36) U/L ALT (9-52) U/L Alkaline Phosphatase (38-126) U/L Total Protein (6.3-8.2) g/dL Albumin (3.5-5.0) g/dL Amylase (30-110) U/L Lipase (23-300) U/L Urine Color Yellow Urine Appearance Cloudy H (Clear) Urine pH 6.0 (5.0-8.0) Ur Specific [place] 1.026 (1.001-1.035) Urine Protein Trace H (Negative) Urine Glucose (UA) Negative (Negative) Urine Ketones 1+ H (Negative) Urine Blood Moderate H (Negative) Urine Nitrite Negative (Negative) Urine Bilirubin Negative (Negative) Urine Urobilinogen 2.0 (<2.0) mg/dL Ur Leukocyte Esterase Small H (Negative) Urine RBC 8 H (0-5) /hpf Urine WBC 5 (0-5) /hpf Ur Squamous Epith Cells 11 H (0-4) /hpf Urine Bacteria Rare H (None) /hpf Hyaline Casts 3 H (0-2) /lpf Urine Mucus Many H (None) /hpf Urine HCG, Qual (Not Detectd) Disposition Clinical Impression: Urinary tract infection Disposition: HOME SELF-CARE Condition: Good Instructions: Urinary Tract Infection in Women (ED), Acute Nausea and Vomiting (ED) Additional Instructions: Increase fluids. Take medications as directed. Follow-up with your primary care physician for recheck in 1-2 days. Have repeat urine test performed once antibiotics are complete to ensure clearance of infection. Return here immediately for any new, worsening, or concerning symptoms. Prescriptions: Ondansetron [Zofran ODT] 4 mg PO Q8HR PRN #10 tab PRN Reason: Nausea Sulfamethoxazole/Trimethoprim [Bactrim DS 800-160 mg] 1 each PO BID #14 tablet Is patient prescribed a controlled substance at d/c from ED?: No Referrals: Mara Jakc MD [Primary Care Provider] - 1-2 days Time of Disposition: 21:36
[2017-09-20 20:45] LABS: Basophils % (A) 1 %; Eosinophils # (A) 0.2 k/uL (0-0.7); Eosinophils % (A) 2 %; HCT 38.3 % (34.0-46.0); HGB 13.2 gm/dL (11.4-16.0); Lymphocytes % (A) 36 %; MCH 31.4 pg (25.0-35.0); MCHC 34.4 g/dL (31.0-37.0); MCV 91.4 fL (80.0-100.0); Mean Platelet Volume 6.4; Monocytes # (A) 0.5 k/uL (0-1.0); Monocytes % (A) 6 %; Neutrophils # (A) 4.5 k/uL (1.3-7.7); Neutrophils % (A) 54 %; Platelet Count 333 k/uL (150-450); RDW 11.9 % (11.5-15.5); WBC 8.4 k/uL (3.8-10.6)
[2017-09-20 20:48] LABS: Appearance,Urine Cloudy (Clear); Bacteria,Urine Rare /hpf; Bilirubin,Urine Negative (Negative); Blood,Urine Moderate (Negative); Color,Urine Yellow; Glucose,Urine (UA) Negative (Negative); Hyaline Casts,Urine 3 /lpf (0-2); Ketones,Urine 1+ (Negative); Leukocyte Esterase,Urine Small (Negative); Mucus,Urine Many /hpf; Nitrite,Urine Negative (Negative); Protein,Urine Trace (Negative); RBC,Urine 8 /hpf (0-5); Specific Gravity,Urine 1.026 (1.001-1.035); Squamous Epithelial Cell,Urine 11 /hpf (0-4); WBC,Urine 5 /hpf (0-5)
[2017-09-20 21:11] LABS: ALT 31 U/L (9-52); AST 22 U/L (14-36); Albumin 4.7 g/dL (3.5-5.0); Alkaline Phosphatase 67 U/L (38-126); Amylase 78 U/L (30-110); Anion Gap 13 mmol/L; Blood Urea Nitrogen 10 mg/dL (7-17); Calcium 9.3 mg/dL (8.4-10.2); Carbon Dioxide 24 mmol/L (22-30); Chloride 103 mmol/L (98-107); Glucose 90 mg/dL (74-99); Lipase 75 U/L (23-300); Potassium 3.8 mmol/L (3.5-5.1); Sodium 140 mmol/L (137-145); Total Bilirubin 0.2 mg/dL (0.2-1.3); Total Protein 7.4 g/dL (6.3-8.2)
[2017-09-20] MEDS ORDERED: ONDANSETRON 4 MG ODT STARTER PACK 2 TAB BTL PO STA (21:36)
[2017-09-20] MEDS ORDERED: MORPHINE SULFATE 2 MG/ML SYRINGE IVP STA (21:38)
[2017-09-20] MEDS ORDERED: cefTRIAXone IN SWFI 1,000 MG/10 ML SYRINGE IVP STA (21:39)
[2017-09-20 22:20] VITALS: BP 126/71; PULSE 98; TEMP 97.8
== END 2017-09-20 22:19 | disposition home or self-care (01) ==
LOC: EC 20:01
DX: N39.0 Urinary tract infection, site not specified (principal); Z87.442 Personal history of urinary calculi; Z90.49 Acquired absence of other specified parts of digestive tract; Z90.710 Acquired absence of both cervix and uterus; Z98.51 Tubal ligation status; Z88.8 Allergy status to other drugs, medicaments and biological substances
CPT/HCPCS: 36415; 80053; 82150; 83690; 85025; 81001; 81025; 87086; 99284; 96374; 96375 ×3; 96361 ×2; J2405; J0696; J1885; J2270; S0119

== ENCOUNTER → 2017-10-13 | Outpatient (CLI) | payer OTHER ==
[2017-10-13 13:47] LABS: Appearance,Urine Clear (Clear); Bacteria,Urine Rare /hpf; Bilirubin,Urine Negative (Negative); Blood,Urine Small (Negative); Color,Urine Yellow; Glucose,Urine (UA) Negative (Negative); Ketones,Urine Negative (Negative); Leukocyte Esterase,Urine Negative (Negative); Mucus,Urine Rare /hpf; Nitrite,Urine Negative (Negative); Protein,Urine Trace (Negative); RBC,Urine 17 /hpf (0-5); Specific Gravity,Urine 1.025 (1.001-1.035); Squamous Epithelial Cell,Urine 12 /hpf (0-4); Urobilinogen,Urine <2.0 mg/dL (<2.0); WBC,Urine 1 /hpf (0-5)
== END | disposition home or self-care (01) ==
LOC: LABWHC1 12:53
PROVIDERS: ATTEND Obstetrics & Gynecology
DX: N39.0 Urinary tract infection, site not specified (principal)
CPT/HCPCS: 81001; 87086

== ENCOUNTER 2018-01-15 10:40 | Emergency (ER) | payer OTHER ==
[2018-01-15 10:48] VITALS: RESP 16; TEMP 98.4
[2018-01-15] MEDS ORDERED: ONDANSETRON 4 MG/2 ML VIAL IVP STA (11:27)
[2018-01-15] MEDS ORDERED: KETOROLAC 30 MG/ML 1 ML VIAL IVP STA (11:27)
[2018-01-15] MEDS ORDERED: SODIUM CHLORIDE 0.9% 1,000 ML IV STA (11:27)
--- NOTE | 2018-01-15 11:35 | ED ---
General Adult HPI - General Chief complaint: Nausea/Vomiting/Diarrhea Stated complaint: vomiting, female Time Seen by Provider: 01/15/18 10:49 Source: patient, RN notes reviewed Mode of arrival: ambulatory Limitations: no limitations - History of Present Illness Initial comments: 32-year-old female with a past medical history of nephrolithiasis, cholecystectomy, appendectomy presents to the emergency department for a chief complaint of right flank pain 2 days. Patient states the pain is causing her to vomit. She describes it as a sharp pain in the right flank radiating around to the groin and upper abdomen. Patient states she does have discomfort urinating, denies any burning sensation or difficulty urinating. She denies any fevers or chills at home. Patient states she has had urinary tract infections and kidney stones in the past. Patient has no other complaints at this time including shortness of breath, chest pain, abdominal pain, headache, or visual changes. - Related Data Previous Rx's Medication Instructions Recorded Ondansetron [Zofran ODT] 4 mg PO Q8HR PRN #10 tab 09/20/17 Sulfamethoxazole/Trimethoprim 1 each PO BID #14 tablet 09/20/17 [Bactrim DS 800-160 mg] Allergies Allergy/AdvReac Type Severity Reaction Status Date / Time metoclopramide [From Reglan] Allergy Mild Rapid Verified 01/15/18 10:48 Heart Rate prochlorperazine maleate AdvReac Rapid Verified 01/15/18 10:48 [From Compazine] Heart Rate Review of Systems ROS Statement: Those systems with pertinent positive or pertinent negative responses have been documented in the HPI. ROS Other: All systems not noted in ROS Statement are negative. Past Medical History Past Medical History: No Reported History Additional Past Medical History / Comment(s): COLITIS, uti's, kidney infections , interstitial cystitis, kidney stones History of Any Multi-Drug Resistant Organisms: None Reported Past Surgical History: Appendectomy, Cholecystectomy, Hysterectomy, Tubal Ligation Additional Past Surgical History / Comment(s): novasure ENDOMETRIAL ABLATION Past Anesthesia/Blood Transfusion Reactions: No Reported Reaction Past Psychological History: No Psychological Hx Reported Smoking Status: Never smoker Past Alcohol Use History: None Reported Past Drug Use History: None Reported - Past Family History Mother Family Medical History: Cancer Father Family Medical History: No Reported History General Exam Limitations: no limitations General appearance: alert, in no apparent distress Head exam: Present: atraumatic, normocephalic, normal inspection Eye exam: Present: normal appearance, PERRL, EOMI. Absent: scleral icterus, conjunctival injection, periorbital swelling ENT exam: Present: normal exam, mucous membranes moist Neck exam: Present: normal inspection, full ROM. Absent: tenderness, meningismus, lymphadenopathy Respiratory exam: Present: normal lung sounds bilaterally. Absent: respiratory distress, wheezes, rales, rhonchi, stridor Cardiovascular Exam: Present: regular rate, normal rhythm, normal heart sounds. Absent: systolic murmur, diastolic murmur, rubs, gallop, clicks GI/Abdominal exam: Present: tenderness (mild tenderness in RUQ, no tenderness elsewhere in the abdomen, no suprapubic tenderness) Back exam: Present: CVA tenderness (R). Absent: CVA tenderness (L), vertebral tenderness Neurological exam: Present: alert, oriented X3, CN II-XII intact Psychiatric exam: Present: normal affect, normal mood Course Vital Signs 01/15/18 01/15/18 10:44 13:07 Temperature 98.4 F Pulse Rate 87 88 Respiratory 16 16 Rate Blood Pressure 129/82 125/78 O2 Sat by Pulse 99 100 Oximetry Medical Decision Making - Medical Decision Making 32-year-old female presents to the emergency department for a chief of right flank pain and right side pain. Patient denies any injuries. On exam patient does have right flank tenderness as well as right upper quadrant tenderness. Patient has reproducible pain to palpation of side Patient has a history of appendectomy and cholecystectomy. Urine does not show any evidence of infection but will be cultured. CBC and CMP and otherwise unremarkable. Amylase and lipase within normal limits. CT shows no evidence of hydronephrosis or acute inflammatory abnormality. Possibly a tiny stable appendicolith. Patient was given pain medication and does feel better at this time. She will follow up with primary care. She does request a GI doctor to follow up with as well which will be given to her. She will return if she has any worsening symptoms. - Lab Data Result diagrams: 01/15/18 11:39 01/15/18 11:39 Lab Results 01/15/18 01/15/18 01/15/18 Range/Units 11:39 11:39 11:39 WBC 6.7 (3.8-10.6) k/uL RBC 4.03 (3.80-5.40) m/uL Hgb 12.8 (11.4-16.0) gm/dL Hct 38.4 (34.0-46.0) % MCV 95.3 (80.0-100.0) fL MCH 31.8 (25.0-35.0) pg MCHC 33.4 (31.0-37.0) g/dL RDW 11.8 (11.5-15.5) % Plt Count 336 (150-450) k/uL Neutrophils % 55 % Lymphocytes % 34 % Monocytes % 5 % Eosinophils % 3 % Basophils % 1 % Neutrophils # 3.7 (1.3-7.7) k/uL Lymphocytes # 2.3 (1.0-4.8) k/uL Monocytes # 0.3 (0-1.0) k/uL Eosinophils # 0.2 (0-0.7) k/uL Basophils # 0.0 (0-0.2) k/uL Sodium 139 (137-145) mmol/L Potassium 4.0 (3.5-5.1) mmol/L Chloride 108 H (98-107) mmol/L Carbon Dioxide 23 (22-30) mmol/L Anion Gap 8 mmol/L BUN 11 (7-17) mg/dL Creatinine 0.59 (0.52-1.04) mg/dL Est GFR (CKD-EPI)AfAm >90 (>60 ml/min/1.73 sqM) Est GFR (CKD-EPI)NonAf >90 (>60 ml/min/1.73 sqM) Glucose 86 (74-99) mg/dL Calcium 9.4 (8.4-10.2) mg/dL Total Bilirubin 0.3 (0.2-1.3) mg/dL AST 18 (14-36) U/L ALT 21 (9-52) U/L Alkaline Phosphatase 56 (38-126) U/L Total Protein 7.4 (6.3-8.2) g/dL Albumin 4.4 (3.5-5.0) g/dL Amylase 77 (30-110) U/L Lipase 55 (23-300) U/L Urine Color Yellow Urine Appearance Cloudy H (Clear) Urine pH 7.0 (5.0-8.0) Ur Specific [place] 1.019 (1.001-1.035) Urine Protein Negative (Negative) Urine Glucose (UA) Negative (Negative) Urine Ketones Negative (Negative) Urine Blood Small H (Negative) Urine Nitrite Negative (Negative) Urine Bilirubin Negative (Negative) Urine Urobilinogen <2.0 (<2.0) mg/dL Ur Leukocyte Esterase Trace H (Negative) Urine RBC 1 (0-5) /hpf Urine WBC 1 (0-5) /hpf Ur Squamous Epith Cells 18 H (0-4) /hpf Amorphous Sediment Rare H (None) /hpf Urine Mucus Occasional H (None) /hpf Disposition Clinical Impression: Flank pain Disposition: HOME SELF-CARE Condition: Good Instructions: Abdominal Pain (ED), Flank Pain (ED) Additional Instructions: Please follow up with primary care in 1-2 days. Please return to the emergency department if you have any worsening symptoms. Is patient prescribed a controlled substance at d/c from ED?: No Referrals: Mara Jack MD [Primary Care Provider] - 1-2 days Chavez Castaneda MD [STAFF PHYSICIAN] - 1-2 days Time of Disposition: 13:14
[2018-01-15 11:57] LABS: Basophils % (A) 1 %; Eosinophils # (A) 0.2 k/uL (0-0.7); Eosinophils % (A) 3 %; HCT 38.4 % (34.0-46.0); HGB 12.8 gm/dL (11.4-16.0); Lymphocytes # (A) 2.3 k/uL (1.0-4.8); Lymphocytes % (A) 34 %; MCH 31.8 pg (25.0-35.0); MCHC 33.4 g/dL (31.0-37.0); MCV 95.3 fL (80.0-100.0); Mean Platelet Volume 6.5; Monocytes # (A) 0.3 k/uL (0-1.0); Monocytes % (A) 5 %; Neutrophils # (A) 3.7 k/uL (1.3-7.7); Neutrophils % (A) 55 %; Platelet Count 336 k/uL (150-450); RBC 4.03 m/uL (3.80-5.40); RDW 11.8 % (11.5-15.5); WBC 6.7 k/uL (3.8-10.6)
[2018-01-15 12:13] LABS: ALT 21 U/L (9-52); AST 18 U/L (14-36); Albumin 4.4 g/dL (3.5-5.0); Alkaline Phosphatase 56 U/L (38-126); Amylase 77 U/L (30-110); Anion Gap 8 mmol/L; Blood Urea Nitrogen 11 mg/dL (7-17); Calcium 9.4 mg/dL (8.4-10.2); Carbon Dioxide 23 mmol/L (22-30); Chloride 108 mmol/L (98-107); Glucose 86 mg/dL (74-99); Lipase 55 U/L (23-300); Sodium 139 mmol/L (137-145); Total Bilirubin 0.3 mg/dL (0.2-1.3); Total Protein 7.4 g/dL (6.3-8.2)
[2018-01-15 12:21] LABS: Amorphous Sediment,Urine Rare /hpf; Appearance,Urine Cloudy (Clear); Bilirubin,Urine Negative (Negative); Blood,Urine Small (Negative); Color,Urine Yellow; Glucose,Urine (UA) Negative (Negative); Ketones,Urine Negative (Negative); Leukocyte Esterase,Urine Trace (Negative); Mucus,Urine Occasional /hpf; Nitrite,Urine Negative (Negative); Protein,Urine Negative (Negative); RBC,Urine 1 /hpf (0-5); Specific Gravity,Urine 1.019 (1.001-1.035); Squamous Epithelial Cell,Urine 18 /hpf (0-4); Urobilinogen,Urine <2.0 mg/dL (<2.0); WBC,Urine 1 /hpf (0-5)
--- NOTE | 2018-01-15 12:36 | CT ---
EXAMINATION TYPE: CT abdomen pelvis wo con DATE OF EXAM: 01/15/2018 COMPARISON: Previous study dated 06/13/2017. HISTORY: Right flank pain for [address] DLP: 427.4 mGycm Automated exposure control for dose reduction was used. FINDINGS: Visualized portions of the lungs are clear. There is no pleural or pericardial fluid. The h eart is not enlarged. Within the abdomen, the liver is prominent measuring 18.9 cm. This is largely due to a Myranda's lobe. The spleen is normal. The gallbladder is been removed. Both adrenal glands are normal. There is no evidence of hydronephrosis or nephrolithiasis. There is a phlebolith in the right hemipel vis but this was present previously. Limited views of the pancreas are unremarkable. There is no significant retroperitoneal, iliac or inguinal adenopathy The bladder is unremarkable. The uterus and ovaries are not visualized. There is no significant diverticular change and there is no radiographic evidence of diverticulitis. The appendix is not seen with certainty. There is no pericecal inflammation. There is a small calcifi cation adjacent to the cecum and this was present previously. I could not exclude a tiny appendicolit h. Small bowel loops are normal in caliber. There is no free fluid and no free air. No bony lesion is seen. IMPRESSION: 1. NO EVIDENCE OF HYDRONEPHROSIS OR NEPHROLITHIASIS. 2. NO ACUTE INFLAMMATORY ABNORMALITY. 3. I COULD NOT EXCLUDE A TINY, STABLE APPENDICOLITH.
[2018-01-15] MEDS ORDERED: MORPHINE SULFATE 4 MG/ML SYRINGE IVP STA (12:43)
[2018-01-15 13:08] VITALS: BP 125/78; PULSE 88
== END 2018-01-15 13:30 | disposition home or self-care (01) ==
LOC: EC 10:40
DX: R10.11 Right upper quadrant pain (principal); R11.2 Nausea with vomiting, unspecified; Z87.19 Personal history of other diseases of the digestive system; Z87.442 Personal history of urinary calculi; Z90.49 Acquired absence of other specified parts of digestive tract; Z90.710 Acquired absence of both cervix and uterus; Z98.51 Tubal ligation status; Z88.8 Allergy status to other drugs, medicaments and biological substances
CPT/HCPCS: 36415; 80053; 82150; 83690; 85025; 81001; 87040; 87086; 74176; 99284; 96374; 96375 ×2; 96361; J2270; J2405; J1885

== ENCOUNTER 2018-03-16 01:55 | Emergency (ER) | payer OTHER ==
[2018-03-16 03:03] LABS: Appearance,Urine Cloudy (Clear); Bilirubin,Urine Negative (Negative); Blood,Urine Small (Negative); Color,Urine Yellow; Glucose,Urine (UA) Negative (Negative); Ketones,Urine 1+ (Negative); Leukocyte Esterase,Urine Negative (Negative); Mucus,Urine Many /hpf; Nitrite,Urine Negative (Negative); PH, Urine 6.5 (5.0-8.0); Protein,Urine Trace (Negative); RBC,Urine 10 /hpf (0-5); Specific Gravity,Urine 1.023 (1.001-1.035); Squamous Epithelial Cell,Urine 21 /hpf (0-4); WBC,Urine 2 /hpf (0-5)
[2018-03-16] MEDS ORDERED: KETOROLAC 30 MG/ML 1 ML VIAL IVP STA (05:58)
[2018-03-16] MEDS ORDERED: MORPHINE SULFATE 4 MG/ML SYRINGE IVP STA ×2 (06:41→07:34)
[2018-03-16 06:46] LABS: Basophils # (A) 0.1 k/uL (0-0.2); Basophils % (A) 1 %; Eosinophils # (A) 0.2 k/uL (0-0.7); Eosinophils % (A) 2 %; HCT 41.3 % (34.0-46.0); HGB 13.7 gm/dL (11.4-16.0); Lymphocytes # (A) 2.1 k/uL (1.0-4.8); Lymphocytes % (A) 21 %; MCH 31.3 pg (25.0-35.0); MCHC 33.2 g/dL (31.0-37.0); MCV 94.3 fL (80.0-100.0); Mean Platelet Volume 6.3; Monocytes # (A) 0.5 k/uL (0-1.0); Monocytes % (A) 5 %; Neutrophils # (A) 6.8 k/uL (1.3-7.7); Neutrophils % (A) 69 %; Platelet Count 384 k/uL (150-450); RBC 4.38 m/uL (3.80-5.40); RDW 11.8 % (11.5-15.5); WBC 9.9 k/uL (3.8-10.6)
[2018-03-16 06:52] LABS: ALT 30 U/L (9-52); AST 18 U/L (14-36); Albumin 4.7 g/dL (3.5-5.0); Alkaline Phosphatase 67 U/L (38-126); Amylase 73 U/L (30-110); Anion Gap 8 mmol/L; Blood Urea Nitrogen 11 mg/dL (7-17); Calcium 9.7 mg/dL (8.4-10.2); Carbon Dioxide 27 mmol/L (22-30); Chloride 106 mmol/L (98-107); Glucose 86 mg/dL (74-99); Lipase 59 U/L (23-300); Potassium 4.3 mmol/L (3.5-5.1); Sodium 141 mmol/L (137-145); Total Bilirubin 0.7 mg/dL (0.2-1.3)
--- NOTE | 2018-03-16 07:05 | XR ---
EXAM: XR Kub CLINICAL HISTORY: ITS.REASON XR Reason: abdominal pain COMPARISON: June 13, 2017 IMPRESSION: Upright views of the abdomen. Bowel gas pattern nonobstructive. No subdiaphragmatic free air. There is a calcification seen overlying the right superior pubic ramus. This could be vascular. Cholecystectomy clips again noted. If symptoms warrant, CT more sensitive.
[2018-03-16] MEDS ORDERED: ONDANSETRON 4 MG/2 ML VIAL IVP STA (07:34)
[2018-03-16] MEDS ORDERED: SODIUM CHLORIDE 0.9% 1,000 ML IV ONE (07:34)
--- NOTE | 2018-03-16 07:37 | ED ---
Abdominal Pain HPI - General Chief Complaint: Abdominal Pain Stated Complaint: Vomiting Time Seen by Provider: 03/16/18 05:58 Source: patient, RN notes reviewed Mode of arrival: ambulatory Limitations: no limitations - History of Present Illness Initial Comments: 32-year-old female presents emergency Department with chief complaint of left flank pain. Patient states this started 2 days ago. She does have a history kidney stones. Patient states pain feels similar. Patient admits nausea and vomiting. Patient reports no fevers or chills. Patient states that it does hurt to urinate but states he does not feel like urinary tract infection. Patient denies any diarrhea constipation. Patient denies chest pain, shortness breath, headache, dizziness, chance . - Related Data Home Medications Medication Instructions Recorded Confirmed Ibuprofen [Motrin Ib] 400 mg PO Q6HR PRN 03/16/18 03/16/18 Previous Rx's Medication Instructions Recorded Ibuprofen [Motrin] 600 mg PO Q8HR PRN #30 tab 03/16/18 Omeprazole [PriLOSEC] 20 mg PO AC-BRKFST #14 cap 03/16/18 Ondansetron Odt [Zofran Odt] 4 mg PO Q8HR PRN #10 tab 03/16/18 Allergies Allergy/AdvReac Type Severity Reaction Status Date / Time metoclopramide [From Reglan] Allergy Mild Rapid Verified 03/16/18 07:40 Heart Rate prochlorperazine maleate AdvReac Rapid Verified 03/16/18 07:40 [From Compazine] Heart Rate Review of Systems ROS Statement: Those systems with pertinent positive or pertinent negative responses have been documented in the HPI. ROS Other: All systems not noted in ROS Statement are negative. Past Medical History Past Medical History: No Reported History Additional Past Medical History / Comment(s): COLITIS, uti's, kidney infections , interstitial cystitis, kidney stones History of Any Multi-Drug Resistant Organisms: None Reported Past Surgical History: Appendectomy, Cholecystectomy, Hysterectomy, Tubal Ligation Additional Past Surgical History / Comment(s): novasure ENDOMETRIAL ABLATION Past Anesthesia/Blood Transfusion Reactions: No Reported Reaction Past Psychological History: No Psychological Hx Reported Smoking Status: Never smoker Past Alcohol Use History: None Reported Past Drug Use History: None Reported - Past Family History Mother Family Medical History: Cancer Father Family Medical History: No Reported History General Exam Limitations: no limitations General appearance: alert, in no apparent distress Head exam: Present: atraumatic, normocephalic, normal inspection Respiratory exam: Present: normal lung sounds bilaterally. Absent: respiratory distress, wheezes, rales, rhonchi, stridor Cardiovascular Exam: Present: regular rate, normal rhythm, normal heart sounds. Absent: systolic murmur, diastolic murmur, rubs, gallop, clicks GI/Abdominal exam: Present: soft, tenderness (Mild left-sided), normal bowel sounds. Absent: distended, guarding, rebound, rigid Back exam: Present: CVA tenderness (L). Absent: CVA tenderness (R) Skin exam: Present: warm, dry, intact, normal color. Absent: rash Course Vital Signs 03/16/18 03/16/18 01:57 06:35 Temperature 98.1 F Pulse Rate 86 81 Respiratory 20 18 Rate Blood Pressure 130/86 108/77 O2 Sat by Pulse 99 98 Oximetry Medical Decision Making - Medical Decision Making 52-year-old female presented emergency department for left flank pain. Patient has no evidence of urinary tract infection, laboratory unremarkable. Patient did have an ultrasound KUB with no acute findings. Patient will be discharged with her GM, ibuprofen. Return parameters were discussed. - Lab Data Result diagrams: 03/16/18 05:50 03/16/18 05:50 Lab Results 03/16/18 03/16/18 03/16/18 Range/Units 02:51 05:50 05:50 WBC 9.9 (3.8-10.6) k/uL RBC 4.38 (3.80-5.40) m/uL Hgb 13.7 (11.4-16.0) gm/dL Hct 41.3 (34.0-46.0) % MCV 94.3 (80.0-100.0) fL MCH 31.3 (25.0-35.0) pg MCHC 33.2 (31.0-37.0) g/dL RDW 11.8 (11.5-15.5) % Plt Count 384 (150-450) k/uL Neutrophils % 69 % Lymphocytes % 21 % Monocytes % 5 % Eosinophils % 2 % Basophils % 1 % Neutrophils # 6.8 (1.3-7.7) k/uL Lymphocytes # 2.1 (1.0-4.8) k/uL Monocytes # 0.5 (0-1.0) k/uL Eosinophils # 0.2 (0-0.7) k/uL Basophils # 0.1 (0-0.2) k/uL Sodium 141 (137-145) mmol/L Potassium 4.3 (3.5-5.1) mmol/L Chloride 106 (98-107) mmol/L Carbon Dioxide 27 (22-30) mmol/L Anion Gap 8 mmol/L BUN 11 (7-17) mg/dL Creatinine 0.66 (0.52-1.04) mg/dL Est GFR (CKD-EPI)AfAm >90 (>60 ml/min/1.73 sqM) Est GFR (CKD-EPI)NonAf >90 (>60 ml/min/1.73 sqM) Glucose 86 (74-99) mg/dL Calcium 9.7 (8.4-10.2) mg/dL Total Bilirubin 0.7 (0.2-1.3) mg/dL AST 18 (14-36) U/L ALT 30 (9-52) U/L Alkaline Phosphatase 67 (38-126) U/L Total Protein 8.0 (6.3-8.2) g/dL Albumin 4.7 (3.5-5.0) g/dL Amylase 73 (30-110) U/L Lipase 59 (23-300) U/L Urine Color Yellow Urine Appearance Cloudy H (Clear) Urine pH 6.5 (5.0-8.0) Ur Specific [place] 1.023 (1.001-1.035) Urine Protein Trace H (Negative) Urine Glucose (UA) Negative (Negative) Urine Ketones 1+ H (Negative) Urine Blood Small H (Negative) Urine Nitrite Negative (Negative) Urine Bilirubin Negative (Negative) Urine Urobilinogen 3.0 (<2.0) mg/dL Ur Leukocyte Esterase Negative (Negative) Urine RBC 10 H (0-5) /hpf Urine WBC 2 (0-5) /hpf Ur Squamous Epith Cells 21 H (0-4) /hpf Urine Mucus Many H (None) /hpf Disposition Clinical Impression: Left flank pain, Hematuria, Nausea & vomiting Disposition: HOME SELF-CARE Condition: Stable Instructions: Flank Pain (ED) Additional Instructions: Please return to the Emergency Department if symptoms worsen or any other concerns. Prescriptions: Ibuprofen [Motrin] 600 mg PO Q8HR PRN #30 tab PRN Reason: Pain Omeprazole [PriLOSEC] 20 mg PO AC-BRKFST #14 cap Ondansetron Odt [Zofran Odt] 4 mg PO Q8HR PRN #10 tab PRN Reason: Nausea Is patient prescribed a controlled substance at d/c from ED?: No Referrals: Mara Jack MD [Primary Care Provider] - 1-2 days Time of Disposition: 07:41
--- NOTE | 2018-03-16 07:54 | US ---
EXAMINATION TYPE: US kidneys/renal and bladder DATE OF EXAM: 03/16/2018 COMPARISON: 01/15/2018 CLINICAL HISTORY: flank pain, hematuria, hx stones. left flank pain that jumps to the right, gross he maturia EXAM MEASUREMENTS: Right Kidney: 9.1 x 4.7 x 5.5 cm Left Kidney: 11.3 x 4.7 x 5.6 cm Right Kidney: Slight calyceal fullness with no discrete hydronephrosis or masses seen Left Kidney: No hydronephrosis or masses seen Bladder: not fully distended to evaluate There is no evidence for hydronephrosis at this point in time. No nephrolithiasis is seen sonographi mychal. No masses are identified. IMPRESSION: There is very slight right calyceal fullness without discrete hydronephrosis of either kidney. No sha dowing renal calculi. Urinary bladder was nondistended and therefore cannot be evaluated. No renal ca lculi were noted on the prior CT dated 01/15/2018.
[2018-03-16 09:10] VITALS: BP 128/70; PULSE 71; RESP 16; TEMP 97.8
== END 2018-03-16 09:09 | disposition home or self-care (01) ==
LOC: EC 01:55
DX: R10.9 Unspecified abdominal pain (principal); R31.9 Hematuria, unspecified; R11.2 Nausea with vomiting, unspecified; Z88.8 Allergy status to other drugs, medicaments and biological substances; Z90.49 Acquired absence of other specified parts of digestive tract; Z90.710 Acquired absence of both cervix and uterus; Z53.8 Procedure and treatment not carried out for other reasons
CPT/HCPCS: 36415; 80053; 82150; 83690; 85025; 81001; 74018; 76770; 99284; 96374; 96375 ×2; 96361; J2270; J2405; J1885

== ENCOUNTER 2018-04-09 13:30 | Emergency (ER) | payer OTHER ==
[2018-04-09] MEDS ORDERED: HYDROmorphone 0.5 MG/0.5 ML SYRINGE IVP STA (14:44)
[2018-04-09] MEDS ORDERED: ONDANSETRON 4 MG/2 ML VIAL IVP STA (14:44)
[2018-04-09] MEDS ORDERED: SODIUM CHLORIDE 0.9% 1,000 ML IV STA ×2 (14:44)
[2018-04-09] MEDS ORDERED: PANTOPRAZOLE 40 MG/10 ML VIAL IVP STA (14:44)
--- NOTE | 2018-04-09 14:51 | ED ---
GI Bleed HPI - General Chief complaint: GI Bleed Stated complaint: Abd pain Time Seen by Provider: 04/09/18 14:20 Source: patient, RN notes reviewed, old records reviewed Mode of arrival: ambulatory Limitations: no limitations - History of Present Illness Initial comments: Patient is a 33-year-old female with history of colitis results returned today with 1 day of diffuse left lower quadrant abdominal pain. She states had history of bloody stools. She complains of rectal pain. She reports that she was initially diagnosed with Crohn's colitis however they stated it seems to be disputable. Patient states that she follows with Dr. Jackson. Patient states that she previously had this pain and she had be admitted for IV antibiotics. Patient states she cannot get Dr. Olivo. She's had nausea but no vomiting episodes. - Related Data Previous Rx's Medication Instructions Recorded Acetaminophen-Codeine 300-30mg 1 tab PO Q6H PRN 3 Days #12 tablet 04/09/18 [Tylenol w/codeine #3] Ciprofloxacin HCl [Cipro] 500 mg PO Q12H 10 Days 04/09/18 metroNIDAZOLE [Flagyl] 500 mg PO TID #30 tab 04/09/18 predniSONE 20 mg PO BID #10 tab 04/09/18 Allergies Allergy/AdvReac Type Severity Reaction Status Date / Time metoclopramide [From Reglan] Allergy Mild Rapid Verified 04/09/18 14:04 Heart Rate prochlorperazine maleate AdvReac Rapid Verified 04/09/18 14:04 [From Compazine] Heart Rate Review of Systems ROS Statement: Those systems with pertinent positive or pertinent negative responses have been documented in the HPI. ROS Other: All systems not noted in ROS Statement are negative. Past Medical History Past Medical History: No Reported History Additional Past Medical History / Comment(s): COLITIS, uti's, kidney infections , interstitial cystitis, kidney stones History of Any Multi-Drug Resistant Organisms: None Reported Past Surgical History: Appendectomy, Cholecystectomy, Hysterectomy, Tubal Ligation Additional Past Surgical History / Comment(s): novasure ENDOMETRIAL ABLATION Past Anesthesia/Blood Transfusion Reactions: No Reported Reaction Past Psychological History: No Psychological Hx Reported Smoking Status: Never smoker Past Alcohol Use History: None Reported Past Drug Use History: None Reported - Past Family History Mother Family Medical History: Cancer Father Family Medical History: No Reported History General Exam - General Exam Comments Initial Comments: 33 year old female, moderate discomfort and distress. Limitations: no limitations General appearance: alert, in no apparent distress Head exam: Present: atraumatic, normocephalic, normal inspection Eye exam: Present: normal appearance, PERRL, EOMI. Absent: scleral icterus, conjunctival injection, periorbital swelling ENT exam: Present: normal exam, mucous membranes moist Respiratory exam: Present: normal lung sounds bilaterally. Absent: respiratory distress, wheezes, rales, rhonchi, stridor Cardiovascular Exam: Present: regular rate, normal rhythm, normal heart sounds. Absent: systolic murmur, diastolic murmur, rubs, gallop, clicks GI/Abdominal exam: Present: soft, tenderness (LLQ tenderness), normal bowel sounds. Absent: distended, guarding, rebound, rigid Rectal exam: Present: normal inspection, normal rectal tone, heme (+) stool, tenderness (tenderness ). Absent: hemorrhoids Extremities exam: Present: normal inspection, full ROM, normal capillary refill. Absent: tenderness, pedal edema, joint swelling, calf tenderness Back exam: Present: normal inspection Neurological exam: Present: alert, oriented X3, CN II-XII intact Psychiatric exam: Present: normal affect, normal mood Skin exam: Present: warm Course Vital Signs 04/09/18 04/09/18 04/09/18 13:53 17:30 18:00 Temperature 98.3 F Pulse Rate 84 75 73 Respiratory 18 18 16 Rate Blood Pressure 138/67 118/81 115/68 O2 Sat by Pulse 96 Oximetry 04/09/18 18:32 Temperature 98.5 F Pulse Rate 74 Respiratory 18 Rate Blood Pressure 104/71 O2 Sat by Pulse 100 Oximetry Medical Decision Making - Medical Decision Making 33 year old female with onset of rectal pain, LLQ pain for one day, with history of colitis. Patient has undiagnosed UC or chron's at this time. Patient labs are unremarkable. She did have rectal tenderness, no hemorrhoids noted. Patient has hemoccult positive. Patient will be treated for colitis with steroid, cipro and flagyl. Discussed Surgery and GI follow up for management for likely autoimmune colitis. DC return parameters. - Lab Data Result diagrams: 04/09/18 14:28 04/09/18 14:28 Lab Results 01/27/19 01/27/19 01/27/19 Range/Units 14:28 14:28 14:28 WBC 8.4 (3.8-10.6) k/uL RBC 3.99 (3.80-5.40) m/uL Hgb 12.4 (11.4-16.0) gm/dL Hct 38.1 (34.0-46.0) % MCV 95.7 (80.0-100.0) fL MCH 31.2 (25.0-35.0) pg MCHC 32.6 (31.0-37.0) g/dL RDW 12.1 (11.5-15.5) % Plt Count 364 (150-450) k/uL Neutrophils % 59 % Lymphocytes % 30 % Monocytes % 5 % Eosinophils % 2 % Basophils % 0 % Neutrophils # 5.0 (1.3-7.7) k/uL Lymphocytes # 2.5 (1.0-4.8) k/uL Monocytes # 0.4 (0-1.0) k/uL Eosinophils # 0.2 (0-0.7) k/uL Basophils # 0.0 (0-0.2) k/uL APTT (22.0-30.0) sec Sodium 140 (137-145) mmol/L Potassium 4.0 (3.5-5.1) mmol/L Chloride 106 (98-107) mmol/L Carbon Dioxide 28 (22-30) mmol/L Anion Gap 6 mmol/L BUN 9 (7-17) mg/dL Creatinine 0.79 (0.52-1.04) mg/dL Est GFR (CKD-EPI)AfAm >90 (>60 ml/min/1.73 sqM) Est GFR (CKD-EPI)NonAf >90 (>60 ml/min/1.73 sqM) Glucose 91 (74-99) mg/dL Calcium 9.4 (8.4-10.2) mg/dL Total Bilirubin 0.3 (0.2-1.3) mg/dL AST 17 (14-36) U/L ALT 29 (9-52) U/L Alkaline Phosphatase 49 (38-126) U/L Total Creatine Kinase 55 (30-135) U/L CK-MB (CK-2) 0.3 (0.0-2.4) ng/mL CK-MB (CK-2) Rel Index 0.5 Troponin I <0.012 (0.000-0.034) ng/mL Total Protein 7.2 (6.3-8.2) g/dL Albumin 4.5 (3.5-5.0) g/dL Lipase 62 (23-300) U/L Urine Color Urine Appearance (Clear) Urine pH (5.0-8.0) Ur Specific Sharples (1.001-1.035) Urine Protein (Negative) Urine Glucose (UA) (Negative) Urine Ketones (Negative) Urine Blood (Negative) Urine Nitrite (Negative) Urine Bilirubin (Negative) Urine Urobilinogen (<2.0) mg/dL Ur Leukocyte Esterase (Negative) Urine RBC (0-5) /hpf Ur Squamous Epith Cells (0-4) /hpf Amorphous Sediment (None) /hpf Urine Bacteria (None) /hpf Urine Mucus (None) /hpf Stool Occult Blood (Negative) C. difficile (EIA) Intrp (Negative) Blood Type Blood Type Recheck Antibody Screen Spec Expiration Date 04/09/18 04/09/18 04/09/18 Range/Units 14:28 14:28 15:45 WBC (3.8-10.6) k/uL RBC (3.80-5.40) m/uL Hgb (11.4-16.0) gm/dL Hct (34.0-46.0) % MCV (80.0-100.0) fL MCH (25.0-35.0) pg MCHC (31.0-37.0) g/dL RDW (11.5-15.5) % Plt Count (150-450) k/uL Neutrophils % % Lymphocytes % % Monocytes % % Eosinophils % % Basophils % % Neutrophils # (1.3-7.7) k/uL Lymphocytes # (1.0-4.8) k/uL Monocytes # (0-1.0) k/uL Eosinophils # (0-0.7) k/uL Basophils # (0-0.2) k/uL APTT 28.0 (22.0-30.0) sec Sodium (137-145) mmol/L Potassium (3.5-5.1) mmol/L Chloride (98-107) mmol/L Carbon Dioxide (22-30) mmol/L Anion Gap mmol/L BUN (7-17) mg/dL Creatinine (0.52-1.04) mg/dL Est GFR (CKD-EPI)AfAm (>60 ml/min/1.73 sqM) Est GFR (CKD-EPI)NonAf (>60 ml/min/1.73 sqM) Glucose (74-99) mg/dL Calcium (8.4-10.2) mg/dL Total Bilirubin (0.2-1.3) mg/dL AST (14-36) U/L ALT (9-52) U/L Alkaline Phosphatase (38-126) U/L Total Creatine Kinase (30-135) U/L CK-MB (CK-2) (0.0-2.4) ng/mL CK-MB (CK-2) Rel Index Troponin I (0.000-0.034) ng/mL Total Protein (6.3-8.2) g/dL Albumin (3.5-5.0) g/dL Lipase (23-300) U/L Urine Color Urine Appearance (Clear) Urine pH (5.0-8.0) Ur Specific Sharples (1.001-1.035) Urine Protein (Negative) Urine Glucose (UA) (Negative) Urine Ketones (Negative) Urine Blood (Negative) Urine Nitrite (Negative) Urine Bilirubin (Negative) Urine Urobilinogen (<2.0) mg/dL Ur Leukocyte Esterase (Negative) Urine RBC (0-5) /hpf Ur Squamous Epith Cells (0-4) /hpf Amorphous Sediment (None) /hpf Urine Bacteria (None) /hpf Urine Mucus (None) /hpf Stool Occult Blood (Negative) C. difficile (EIA) Intrp Negative (Negative) Blood Type O Positive Blood Type Recheck No Antibody Screen NEGATIVE Spec Expiration Date 04/12/2018232704/09/18 04/09/18 Range/Units 15:45 16:00 WBC (3.8-10.6) k/uL RBC (3.80-5.40) m/uL Hgb (11.4-16.0) gm/dL Hct (34.0-46.0) % MCV (80.0-100.0) fL MCH (25.0-35.0) pg MCHC (31.0-37.0) g/dL RDW (11.5-15.5) % Plt Count (150-450) k/uL Neutrophils % % Lymphocytes % % Monocytes % % Eosinophils % % Basophils % % Neutrophils # (1.3-7.7) k/uL Lymphocytes # (1.0-4.8) k/uL Monocytes # (0-1.0) k/uL Eosinophils # (0-0.7) k/uL Basophils # (0-0.2) k/uL APTT (22.0-30.0) sec Sodium (137-145) mmol/L Potassium (3.5-5.1) mmol/L Chloride (98-107) mmol/L Carbon Dioxide (22-30) mmol/L Anion Gap mmol/L BUN (7-17) mg/dL Creatinine (0.52-1.04) mg/dL Est GFR (CKD-EPI)AfAm (>60 ml/min/1.73 sqM) Est GFR (CKD-EPI)NonAf (>60 ml/min/1.73 sqM) Glucose (74-99) mg/dL Calcium (8.4-10.2) mg/dL Total Bilirubin (0.2-1.3) mg/dL AST (14-36) U/L ALT (9-52) U/L Alkaline Phosphatase (38-126) U/L Total Creatine Kinase (30-135) U/L CK-MB (CK-2) (0.0-2.4) ng/mL CK-MB (CK-2) Rel Index Troponin I (0.000-0.034) ng/mL Total Protein (6.3-8.2) g/dL Albumin (3.5-5.0) g/dL Lipase (23-300) U/L Urine Color Yellow Urine Appearance Turbid H (Clear) Urine pH 7.0 (5.0-8.0) Ur Specific Sharples 1.022 (1.001-1.035) Urine Protein Trace H (Negative) Urine Glucose (UA) Negative (Negative) Urine Ketones Negative (Negative) Urine Blood Small H (Negative) Urine Nitrite Negative (Negative) Urine Bilirubin Negative (Negative) Urine Urobilinogen <2.0 (<2.0) mg/dL Ur Leukocyte Esterase Negative (Negative) Urine RBC 11 H (0-5) /hpf Ur Squamous Epith Cells 2 (0-4) /hpf Amorphous Sediment Rare H (None) /hpf Urine Bacteria Many H (None) /hpf Urine Mucus Few H (None) /hpf Stool Occult Blood Positive H (Negative) C. difficile (EIA) Intrp (Negative) Blood Type Blood Type Recheck Antibody Screen Spec Expiration Date - Radiology Data Radiology results: report reviewed Correlate for colitis. Disposition Clinical Impression: Colitis Disposition: HOME SELF-CARE Condition: Good Instructions (If sedation given, give patient instructions): Colitis (ED) Additional Instructions: Patient advised to follow up with PCP and GI doctor. Clear liquid diet. Take medications as prescribed. Prescriptions: Acetaminophen-Codeine 300-30mg [Tylenol w/codeine #3] 1 tab PO Q6H PRN 3 Days # 12 tablet PRN Reason: Pain Ciprofloxacin HCl [Cipro] 500 mg PO Q12H 10 Days metroNIDAZOLE [Flagyl] 500 mg PO TID #30 tab predniSONE 20 mg PO BID #10 tab Is patient prescribed a controlled substance at d/c from ED?: Yes If opioid is for acute pain is fill amount 7 days or less?: Yes If Rx opioid, was Start Talking consent form obtained?: Yes Referrals: Mara Jack MD [Primary Care Provider] - 1-2 days Time of Disposition: 18:09
[2018-04-09 15:30] LABS: Basophils % (A) 0 %; Eosinophils # (A) 0.2 k/uL (0-0.7); Eosinophils % (A) 2 %; HCT 38.1 % (34.0-46.0); HGB 12.4 gm/dL (11.4-16.0); Lymphocytes # (A) 2.5 k/uL (1.0-4.8); Lymphocytes % (A) 30 %; MCH 31.2 pg (25.0-35.0); MCHC 32.6 g/dL (31.0-37.0); MCV 95.7 fL (80.0-100.0); Mean Platelet Volume 6.1; Monocytes # (A) 0.4 k/uL (0-1.0); Monocytes % (A) 5 %; Neutrophils % (A) 59 %; Platelet Count 364 k/uL (150-450); RBC 3.99 m/uL (3.80-5.40); RDW 12.1 % (11.5-15.5); WBC 8.4 k/uL (3.8-10.6)
[2018-04-09 15:43] LABS: ALT 29 U/L (9-52); AST 17 U/L (14-36); Albumin 4.5 g/dL (3.5-5.0); Alkaline Phosphatase 49 U/L (38-126); Anion Gap 6 mmol/L; Blood Urea Nitrogen 9 mg/dL (7-17); Calcium 9.4 mg/dL (8.4-10.2); Carbon Dioxide 28 mmol/L (22-30); Chloride 106 mmol/L (98-107); Glucose 91 mg/dL (74-99); Lipase 62 U/L (23-300); Sodium 140 mmol/L (137-145); Total Bilirubin 0.3 mg/dL (0.2-1.3); Total Protein 7.2 g/dL (6.3-8.2)
[2018-04-09 15:48] LABS: Creatine Kinase 55 U/L (30-135)
[2018-04-09 16:01] LABS: Creatine Kinase MB 0.3 ng/mL (0.0-2.4); Troponin I <0.012 ng/mL (0.000-0.034)
--- NOTE | 2018-04-09 16:35 | CT ---
EXAMINATION TYPE: CT abdomen pelvis w con DATE OF EXAM: 04/09/2018 COMPARISON: Prior CT 01/15/2018 HISTORY: Rectal bleeding today. History of colitis. CT DLP: 665.3 mGycm Automated exposure control for dose reduction was used. TECHNIQUE: Helical acquisition of images from the lung bases through the pelvis have been completed. CONTRAST: Performed without Oral Contrast and with IV Contrast, patient injected with 100 mL of Isovue 300. FINDINGS: LUNG BASES: No significant abnormality is appreciated. AORTA: No significant abnormality is appreciated. LIVER/GB: No significant interval change is appreciated. PANCREAS: No significant abnormality is seen. SPLEEN: No significant abnormality is seen. ADRENALS: No significant abnormality is seen. KIDNEYS: No significant abnormality is seen. REPRODUCTIVE ORGANS: Not seen BOWEL: Nonspecific small bowel wall thickening noted, colonic wall also show some wall thickening es pecially in the ascending colon region extending to the rectosigmoid. No evident appendicitis. FREE AIR: No Free Air visible. ASCITES: None visible. PELVIC ADENOPATHY: None visualized. RETROPERITONEAL ADENOPATHY: No Retroperitoneal Adenopathy visible. URINARY BLADDER: No significant abnormality is seen. OSSEOUS STRUCTURES: No significant abnormality is seen. IMPRESSION: CORRELATE FOR ENTERITIS, COLITIS.
[2018-04-09] MEDS ORDERED: HYDROmorphone 1 MG/ML 1 ML SYRINGE IVP STA (17:02)
[2018-04-09] MEDS ORDERED: CIPROFLOXACIN HCL 500 MG TAB PO STA (17:02)
[2018-04-09] MEDS ORDERED: metroNIDAZOLE 500 MG TAB PO STA (17:02)
[2018-04-09] MEDS ORDERED: methylPREDNISolone SOD SUCCI 125 MG/2 ML VIAL IV STA (17:03)
[2018-04-09 17:33] LABS: Amorphous Sediment,Urine Rare /hpf; Appearance,Urine Turbid (Clear); Bacteria,Urine Many /hpf; Bilirubin,Urine Negative (Negative); Blood,Urine Small (Negative); Color,Urine Yellow; Glucose,Urine (UA) Negative (Negative); Ketones,Urine Negative (Negative); Leukocyte Esterase,Urine Negative (Negative); Mucus,Urine Few /hpf; Nitrite,Urine Negative (Negative); Protein,Urine Trace (Negative); RBC,Urine 11 /hpf (0-5); Specific Gravity,Urine 1.022 (1.001-1.035); Squamous Epithelial Cell,Urine 2 /hpf (0-4); Urobilinogen,Urine <2.0 mg/dL (<2.0)
[2018-04-09 18:40] VITALS: BP 104/71; PULSE 74; RESP 18; TEMP 98.5
== END 2018-04-09 18:35 | disposition home or self-care (01) ==
LOC: EC 13:30
DX: K52.9 Noninfective gastroenteritis and colitis, unspecified (principal); K62.89 Other specified diseases of anus and rectum; Z88.8 Allergy status to other drugs, medicaments and biological substances; Z90.49 Acquired absence of other specified parts of digestive tract; Z98.51 Tubal ligation status
CPT/HCPCS: 36415; 86900; 86901; 80053; 82550; 82553; 83690; 84484; 85025; 85730; 86850; 82272; 81001; 87324; 87045; 87046; 74177; 99285; 96374; 96375 ×3; 96376; 96361 ×3; J2930; J2405; J1170 ×2; C9113; Q9967

== ENCOUNTER 2018-04-10 09:03 | Emergency (ER) | payer OTHER ==
[2018-04-10 09:09] VITALS: RESP 18
[2018-04-10] MEDS ORDERED: SODIUM CHLORIDE 0.9% 1,000 ML IV STA (09:40)
[2018-04-10] MEDS ORDERED: ONDANSETRON 4 MG/2 ML VIAL IVP STA ×2 (09:40→11:36)
[2018-04-10] MEDS ORDERED: FAMOTIDINE 20 MG/2 ML VIAL IV STA (09:40)
--- NOTE | 2018-04-10 09:43 | ED ---
General Adult HPI - General Chief complaint: Abdominal Pain Stated complaint: Rectal Bleeding & vomiting Time Seen by Provider: 04/10/18 09:14 Source: patient, RN notes reviewed Mode of arrival: ambulatory Limitations: no limitations - History of Present Illness Initial comments: Patient is a 33-year-old female significant past medical history for abdominal pain, presented to the emergency room today with a chief complaint of increased nausea vomiting that started at 3 AM. She was here in the emergency room yesterday for same complaint. Did have CAT scan obtained. Patient was discharged with prescriptions. She was unable to get the prescription filled. She states that she did not have anything for nausea. States she began having increased nausea vomiting. Patient states pain is the same as it was yesterday. Patient denies any other complaints or symptoms at this time. Patient denies any recent fever, chills, shortness of breath, chest pain, numbness or tingling, dysuria or hematuria, headaches or visual changes, or any other complaints. - Related Data Previous Rx's Medication Instructions Recorded Acetaminophen-Codeine 300-30mg 1 tab PO Q6H PRN 3 Days #12 tablet 04/09/18 [Tylenol w/codeine #3] Ciprofloxacin HCl [Cipro] 500 mg PO Q12H 10 Days 04/09/18 metroNIDAZOLE [Flagyl] 500 mg PO TID #30 tab 04/09/18 predniSONE 20 mg PO BID #10 tab 04/09/18 Ondansetron Odt [Zofran ODT] 4 mg PO Q8HR PRN #20 tab 04/10/18 Allergies Allergy/AdvReac Type Severity Reaction Status Date / Time metoclopramide [From Reglan] Allergy Mild Rapid Verified 04/10/18 09:38 Heart Rate prochlorperazine maleate AdvReac Rapid Verified 04/10/18 09:38 [From Compazine] Heart Rate Review of Systems ROS Statement: Those systems with pertinent positive or pertinent negative responses have been documented in the HPI. ROS Other: All systems not noted in ROS Statement are negative. Past Medical History Past Medical History: No Reported History Additional Past Medical History / Comment(s): COLITIS, uti's, kidney infections , interstitial cystitis, kidney stones History of Any Multi-Drug Resistant Organisms: None Reported Past Surgical History: Appendectomy, Cholecystectomy, Hysterectomy, Tubal Ligation Additional Past Surgical History / Comment(s): novasure ENDOMETRIAL ABLATION Past Anesthesia/Blood Transfusion Reactions: No Reported Reaction Past Psychological History: No Psychological Hx Reported Smoking Status: Never smoker Past Alcohol Use History: None Reported Past Drug Use History: None Reported - Past Family History Mother Family Medical History: Cancer Father Family Medical History: No Reported History General Exam - General Exam Comments Initial Comments: General: The patient is awake and alert, in no distress, and does not appear acutely ill. Eye: There is normal conjunctiva bilaterally. No signs of icterus. Ears, nose, mouth and throat: There are moist mucous membranes and no oral lesions. Neck: The neck is supple, there is no tenderness or JVD. Cardiovascular: There is a regular rate and rhythm. No murmur, rub or gallop is appreciated. Respiratory: Lungs are clear to auscultation, respirations are non-labored, breath sounds are equal. No wheezes, stridor, rales, or rhonchi. Gastrointestinal: Admits soft on palpation. Mildly tender left lower quadrant. No rebound, guarding. Musculoskeletal: Normal ROM, no tenderness. Neurological: A&O x 3. CN II-XII intact, There are no obvious motor or sensory deficits. Coordination appears grossly intact. Speech is normal. Skin: Skin is warm and dry and no rashes or lesions are noted. Psychiatric: Cooperative, appropriate mood & affect, normal judgment. Limitations: no limitations Course Vital Signs 04/10/18 09:05 Temperature 98.9 F Pulse Rate 90 Respiratory 18 Rate Blood Pressure 139/92 O2 Sat by Pulse 98 Oximetry Medical Decision Making - Medical Decision Making Patient's labs from yesterday were reviewed. Patient did have CT abdomen and pelvis which showed evidence for an enteritis. Patient did have a guaiac positive sample. Patient's labs reviewed today. Hemoglobin stable. Mildly elevated white count. Patient does admit to multiple episodes of nausea vomiting throughout the night. Unable to get her prescriptions filled last night. States pharmacies were closed. At this time patient will be discharged home given nausea medication advised to fill prescriptions that were given to her yesterday. Advised following up with the specialist. Advised return for any other concerns. - Lab Data Result diagrams: 04/10/18 10:13 04/10/18 10:13 Lab Results 04/10/18 04/10/18 04/10/18 Range/Units 10:13 10:13 10:13 WBC 11.1 H (3.8-10.6) k/uL RBC 3.58 L (3.80-5.40) m/uL Hgb 11.4 (11.4-16.0) gm/dL Hct 33.9 L (34.0-46.0) % MCV 94.5 (80.0-100.0) fL MCH 31.9 (25.0-35.0) pg MCHC 33.8 (31.0-37.0) g/dL RDW 12.0 (11.5-15.5) % Plt Count 359 (150-450) k/uL Neutrophils % 73 % Lymphocytes % 19 % Monocytes % 6 % Eosinophils % 0 % Basophils % 0 % Neutrophils # 8.2 H (1.3-7.7) k/uL Lymphocytes # 2.1 (1.0-4.8) k/uL Monocytes # 0.6 (0-1.0) k/uL Eosinophils # 0.0 (0-0.7) k/uL Basophils # 0.0 (0-0.2) k/uL Sodium 140 (137-145) mmol/L Potassium 4.0 (3.5-5.1) mmol/L Chloride 108 H (98-107) mmol/L Carbon Dioxide 27 (22-30) mmol/L Anion Gap 5 mmol/L BUN 8 (7-17) mg/dL Creatinine 0.54 (0.52-1.04) mg/dL Est GFR (CKD-EPI)AfAm >90 (>60 ml/min/1.73 sqM) Est GFR (CKD-EPI)NonAf >90 (>60 ml/min/1.73 sqM) Glucose 89 (74-99) mg/dL Calcium 9.5 (8.4-10.2) mg/dL Total Bilirubin 0.3 (0.2-1.3) mg/dL AST 14 (14-36) U/L ALT 29 (9-52) U/L Alkaline Phosphatase 45 (38-126) U/L Total Protein 6.5 (6.3-8.2) g/dL Albumin 4.0 (3.5-5.0) g/dL Lipase 36 (23-300) U/L Urine HCG, Qual Not Detected (Not Detectd) Disposition Clinical Impression: Enteritis Disposition: HOME SELF-CARE Condition: Good Instructions (If sedation given, give patient instructions): Enteritis (ED) Additional Instructions: Please use medication as discussed. Please follow-up with family doctor in the next 2 days of symptoms have not improved. Please return to emergency room if the symptoms increase or worsen or for any other concerns. Prescriptions: Ondansetron Odt [Zofran ODT] 4 mg PO Q8HR PRN #20 tab PRN Reason: Nausea Is patient prescribed a controlled substance at d/c from ED?: No Referrals: Mara Jack MD [Primary Care Provider] - 1-2 days Time of Disposition: 11:38
[2018-04-10 10:38] LABS: Basophils % (A) 0 %; Eosinophils % (A) 0 %; HCT 33.9 % (34.0-46.0); HGB 11.4 gm/dL (11.4-16.0); Lymphocytes # (A) 2.1 k/uL (1.0-4.8); Lymphocytes % (A) 19 %; MCH 31.9 pg (25.0-35.0); MCHC 33.8 g/dL (31.0-37.0); MCV 94.5 fL (80.0-100.0); Mean Platelet Volume 6.1; Monocytes # (A) 0.6 k/uL (0-1.0); Monocytes % (A) 6 %; Neutrophils # (A) 8.2 k/uL (1.3-7.7); Neutrophils % (A) 73 %; Platelet Count 359 k/uL (150-450); RBC 3.58 m/uL (3.80-5.40); WBC 11.1 k/uL (3.8-10.6)
[2018-04-10 10:48] LABS: ALT 29 U/L (9-52); AST 14 U/L (14-36); Alkaline Phosphatase 45 U/L (38-126); Anion Gap 5 mmol/L; Blood Urea Nitrogen 8 mg/dL (7-17); Calcium 9.5 mg/dL (8.4-10.2); Carbon Dioxide 27 mmol/L (22-30); Chloride 108 mmol/L (98-107); Glucose 89 mg/dL (74-99); Lipase 36 U/L (23-300); Sodium 140 mmol/L (137-145); Total Bilirubin 0.3 mg/dL (0.2-1.3); Total Protein 6.5 g/dL (6.3-8.2)
[2018-04-10] MEDS ORDERED: MORPHINE SULFATE 4 MG/ML SYRINGE IV STA (11:36)
[2018-04-10 12:12] VITALS: BP 119/73; PULSE 64; TEMP 98
== END 2018-04-10 12:11 | disposition home or self-care (01) ==
LOC: EC 09:03
DX: K52.9 Noninfective gastroenteritis and colitis, unspecified (principal); D72.829 Elevated white blood cell count, unspecified; Z88.8 Allergy status to other drugs, medicaments and biological substances; Z90.49 Acquired absence of other specified parts of digestive tract
CPT/HCPCS: 36415; 80053; 83690; 85025; 81025; 99284; 96374; 96375 ×2; 96376; 96361; J2270; J2405

== ENCOUNTER 2018-07-10 16:18 | Inpatient (IN) | payer OTHER ==
[2018-07-10] MEDS ORDERED: SODIUM CHLORIDE 0.9% 500 ML IV STA (16:23)
[2018-07-10] MEDS ORDERED: METOCLOPRAMIDE 5 MG/ML 2 ML VIAL IVP STA (16:24)
[2018-07-10] MEDS ORDERED: ONDANSETRON 4 MG/2 ML VIAL IVP STA (16:30)
[2018-07-10] MEDS ORDERED: MORPHINE SULFATE 4 MG/ML SYRINGE IVP STA (16:30)
--- NOTE | 2018-07-10 16:32 | ED ---
General Adult HPI - General Chief complaint: Nausea/Vomiting/Diarrhea Stated complaint: vomiting/side pain/painful urination Time Seen by Provider: 07/10/18 16:22 Source: patient Mode of arrival: ambulatory Limitations: no limitations - History of Present Illness Initial comments: Dictation was produced using GIT[employer] dictation software. please excuse any grammatical, word or spelling errors. Chief Complaint: 33-year-old female presents with chief complaint of left lower quadrant abdominal pain. History of Present Illness: Patient is a 33-year-old female she has past medical history of hysterectomy, appendectomy, interstitial cystitis, colitis and frequent kidney infections presents with left lower quadrant abdominal pain. Patient states that her symptoms started today. She has extensive history of urinary tract infections. She does have a urologist. Patient does complain of nausea vomiting. No diarrhea. States that her emesis is nonbilious nonbloody. She denies any vaginal discharge. She has history of hysterectomy. The ROS documented in this emergency department record has been reviewed and confirmed by me. Those systems with pertinent positive or negative responses have been documented in the HPI. All other systems are other negative and/or noncontributory. PHYSICAL EXAM: General Impression: Alert and oriented x3, acute distress secondary to pain HEENT: Normocephalic atraumatic, extra-ocular movements intact, pupils equal and reactive to light bilaterally, mucous membranes moist. Cardiovascular: Heart regular rate and rhythm, S1&S2 audible, no murmurs, rubs or gallops Chest: Lungs clear to auscultation bilaterally, no rhonchi, no wheeze, no rales Abdomen: Positive CVA tenderness, tenderness to the left lower quadrant Musculoskeletal: Pulses present and equal in all extremities, no peripheral edema Motor: no focal deficits noted Neurological: CN II-XII grossly intact, no focal motor or sensory deficits noted Skin: Intact with no visualized rashes Psych: Normal affect and mood ED course: 33-year-old female presents with chief complaint of left lower quadrant abdominal pain. Vital signs upon arrival are within acceptable limits.Laboratory evaluation obtained. No abnormality seen in CBC or metabolic panel abdominal labs. Urinalysis positive for moderate blood. CT abdomen and pelvis was obtained. There is findings of mid to lower abdominal central enteritis. No other findings. Patient given multiple boluses of intravenous analgesics with persistent symptoms. Patient's degree of symptoms we'll plan patient admitted with consultation to gastroenterology. Discussed patient case with Dr. Kramer part of [facility] medicine group's willing to accept admission. We'll put GI on consultation. - Related Data Home Medications Medication Instructions Recorded Confirmed No Known Home Medications 07/10/18 07/10/18 Allergies Allergy/AdvReac Type Severity Reaction Status Date / Time metoclopramide [From Reglan] AdvReac Mild Rapid Verified 07/10/18 16:45 Heart Rate prochlorperazine maleate AdvReac Rapid Verified 07/10/18 16:45 [From Compazine] Heart Rate Review of Systems ROS Statement: Those systems with pertinent positive or pertinent negative responses have been documented in the HPI. ROS Other: All systems not noted in ROS Statement are negative. Past Medical History Past Medical History: No Reported History Additional Past Medical History / Comment(s): COLITIS, uti's, kidney infections, interstitial cystitis, kidney stones History of Any Multi-Drug Resistant Organisms: None Reported Past Surgical History: Appendectomy, Cholecystectomy, Hysterectomy, Tubal Ligat ion Additional Past Surgical History / Comment(s): novasure ENDOMETRIAL ABLATION Past Anesthesia/Blood Transfusion Reactions: No Reported Reaction Past Psychological History: No Psychological Hx Reported Smoking Status: Never smoker Past Alcohol Use History: None Reported Past Drug Use History: None Reported - Past Family History Mother Family Medical History: Cancer Father Family Medical History: No Reported History General Exam Limitations: no limitations Course Vital Signs 07/10/18 07/10/18 07/10/18 16:19 17:54 18:45 Temperature 98.8 F 98.3 F 98.6 F Pulse Rate 79 90 96 Respiratory 18 16 16 Rate Blood Pressure 131/75 118/77 117/86 O2 Sat by Pulse 100 100 96 Oximetry Medical Decision Making - Lab Data Result diagrams: 07/10/18 16:40 07/10/18 16:40 Lab Results 07/10/18 07/10/18 07/10/18 Range/Units 16:40 16:40 16:40 WBC 9.9 (3.8-10.6) k/uL RBC 4.17 (3.80-5.40) m/uL Hgb 13.1 (11.4-16.0) gm/dL Hct 39.5 (34.0-46.0) % MCV 94.9 (80.0-100.0) fL MCH 31.5 (25.0-35.0) pg MCHC 33.2 (31.0-37.0) g/dL RDW 11.8 (11.5-15.5) % Plt Count 312 (150-450) k/uL Neutrophils % 50 % Lymphocytes % 39 % Monocytes % 5 % Eosinophils % 3 % Basophils % 1 % Neutrophils # 5.0 (1.3-7.7) k/uL Lymphocytes # 3.8 (1.0-4.8) k/uL Monocytes # 0.5 (0-1.0) k/uL Eosinophils # 0.2 (0-0.7) k/uL Basophils # 0.1 (0-0.2) k/uL Sodium (137-145) mmol/L Potassium (3.5-5.1) mmol/L Chloride (98-107) mmol/L Carbon Dioxide (22-30) mmol/L Anion Gap mmol/L BUN (7-17) mg/dL Creatinine (0.52-1.04) mg/dL Est GFR (CKD-EPI)AfAm (>60 ml/min/1.73 sqM) Est GFR (CKD-EPI)NonAf (>60 ml/min/1.73 sqM) Glucose (74-99) mg/dL Calcium (8.4-10.2) mg/dL Total Bilirubin (0.2-1.3) mg/dL AST (14-36) U/L ALT (9-52) U/L Alkaline Phosphatase (38-126) U/L Total Protein (6.3-8.2) g/dL Albumin (3.5-5.0) g/dL Lipase (23-300) U/L Urine Color Light Yellow Urine Appearance Clear (Clear) Urine pH 5.5 (5.0-8.0) Ur Specific [place] 1.020 (1.001-1.035) Urine Protein Negative (Negative) Urine Glucose (UA) Negative (Negative) Urine Ketones Negative (Negative) Urine Blood Moderate H (Negative) Urine Nitrite Negative (Negative) Urine Bilirubin Negative (Negative) Urine Urobilinogen <2.0 (<2.0) mg/dL Ur Leukocyte Esterase Negative (Negative) Urine RBC 3 (0-5) /hpf Urine WBC <1 (0-5) /hpf Ur Squamous Epith Cells 6 H (0-4) /hpf Urine Mucus Rare H (None) /hpf Urine HCG, Qual Not Detected (Not Detectd) 07/10/18 Range/Units 16:40 WBC (3.8-10.6) k/uL RBC (3.80-5.40) m/uL Hgb (11.4-16.0) gm/dL Hct (34.0-46.0) % MCV (80.0-100.0) fL MCH (25.0-35.0) pg MCHC (31.0-37.0) g/dL RDW (11.5-15.5) % Plt Count (150-450) k/uL Neutrophils % % Lymphocytes % % Monocytes % % Eosinophils % % Basophils % % Neutrophils # (1.3-7.7) k/uL Lymphocytes # (1.0-4.8) k/uL Monocytes # (0-1.0) k/uL Eosinophils # (0-0.7) k/uL Basophils # (0-0.2) k/uL Sodium 141 (137-145) mmol/L Potassium 4.0 (3.5-5.1) mmol/L Chloride 105 (98-107) mmol/L Carbon Dioxide 26 (22-30) mmol/L Anion Gap 10 mmol/L BUN 14 (7-17) mg/dL Creatinine 0.64 (0.52-1.04) mg/dL Est GFR (CKD-EPI)AfAm >90 (>60 ml/min/1.73 sqM) Est GFR (CKD-EPI)NonAf >90 (>60 ml/min/1.73 sqM) Glucose 84 (74-99) mg/dL Calcium 9.8 (8.4-10.2) mg/dL Total Bilirubin 0.3 (0.2-1.3) mg/dL AST 15 (14-36) U/L ALT 22 (9-52) U/L Alkaline Phosphatase 63 (38-126) U/L Total Protein 7.6 (6.3-8.2) g/dL Albumin 4.8 (3.5-5.0) g/dL Lipase 92 (23-300) U/L Urine Color Urine Appearance (Clear) Urine pH (5.0-8.0) Ur Specific [place] (1.001-1.035) Urine Protein (Negative) Urine Glucose (UA) (Negative) Urine Ketones (Negative) Urine Blood (Negative) Urine Nitrite (Negative) Urine Bilirubin (Negative) Urine Urobilinogen (<2.0) mg/dL Ur Leukocyte Esterase (Negative) Urine RBC (0-5) /hpf Urine WBC (0-5) /hpf Ur Squamous Epith Cells (0-4) /hpf Urine Mucus (None) /hpf Urine HCG, Qual (Not Detectd) Disposition Clinical Impression: Abdominal pain Disposition: ADMITTED IP TO THIS HOSP Condition: Fair Referrals: Mara Jack MD [Primary Care Provider] - 1-2 days Decision Time: 19:17
[2018-07-10 16:55] LABS: Appearance,Urine Clear (Clear); Bilirubin,Urine Negative (Negative); Blood,Urine Moderate (Negative); Color,Urine Light Yellow; Glucose,Urine (UA) Negative (Negative); Ketones,Urine Negative (Negative); Leukocyte Esterase,Urine Negative (Negative); Mucus,Urine Rare /hpf; Nitrite,Urine Negative (Negative); PH, Urine 5.5 (5.0-8.0); Protein,Urine Negative (Negative); RBC,Urine 3 /hpf (0-5); Squamous Epithelial Cell,Urine 6 /hpf (0-4); Urobilinogen,Urine <2.0 mg/dL (<2.0); WBC,Urine <1 /hpf (0-5)
[2018-07-10 17:00] LABS: Basophils # (A) 0.1 k/uL (0-0.2); Basophils % (A) 1 %; Eosinophils # (A) 0.2 k/uL (0-0.7); Eosinophils % (A) 3 %; HCT 39.5 % (34.0-46.0); HGB 13.1 gm/dL (11.4-16.0); Lymphocytes # (A) 3.8 k/uL (1.0-4.8); Lymphocytes % (A) 39 %; MCH 31.5 pg (25.0-35.0); MCHC 33.2 g/dL (31.0-37.0); MCV 94.9 fL (80.0-100.0); Mean Platelet Volume 6.5; Monocytes # (A) 0.5 k/uL (0-1.0); Monocytes % (A) 5 %; Neutrophils % (A) 50 %; Platelet Count 312 k/uL (150-450); RBC 4.17 m/uL (3.80-5.40); RDW 11.8 % (11.5-15.5); WBC 9.9 k/uL (3.8-10.6)
[2018-07-10 17:08] LABS: ALT 22 U/L (9-52); AST 15 U/L (14-36); Albumin 4.8 g/dL (3.5-5.0); Alkaline Phosphatase 63 U/L (38-126); Anion Gap 10 mmol/L; Blood Urea Nitrogen 14 mg/dL (7-17); Calcium 9.8 mg/dL (8.4-10.2); Carbon Dioxide 26 mmol/L (22-30); Chloride 105 mmol/L (98-107); Glucose 84 mg/dL (74-99); Lipase 92 U/L (23-300); Sodium 141 mmol/L (137-145); Total Bilirubin 0.3 mg/dL (0.2-1.3); Total Protein 7.6 g/dL (6.3-8.2)
--- NOTE | 2018-07-10 18:01 | CT ---
EXAMINATION TYPE: CT abdomen pelvis w con DATE OF EXAM: 07/10/2018 HISTORY: Nausea, vomiting, left sided abdominal pain with painful urination. CT DLP: 664.8mGycm Automated Exposure Control for Dose Reduction was Utilized. CONTRAST: CT scan of the abdomen and pelvis is performed without oral but with IV Contrast, patient injected wi th 100 mL of Isovue 300. COMPARISON: CT abdomen and pelvis April 09, 2018 FINDINGS: LUNG BASES: No significant abnormality is appreciated. LIVER/GB: Cholecystectomy clips are redemonstrated. PANCREAS: No significant abnormality is seen. SPLEEN: No significant abnormality is seen. ADRENALS: No significant abnormality is seen. KIDNEYS: Symmetric cortical medullary uptake and excretion from both kidneys without hydronephrosis i s present bilaterally. BOWEL: Evaluation bowel is suboptimal secondary to lack of enteric contrast. No suspicious small or l arge bowel dilatation is seen. A few small bowel loops in the mid to lower abdomen are fluid-filled a nd slightly prominent without greater than 3 cm dilatation. Suspect possible enteritis. Small bowel f eces sign terminal ileum is noted. This is consistent with delayed passage of ingested material 2 col onic level. UTERUS/ADNEXA: Somewhat small size retroverted uterus is redemonstrated. LYMPH NODES: No greater than 1cm abdominal or pelvic lymph nodes are appreciated. OSSEOUS STRUCTURES: No significant abnormality is seen. OTHER: No significant additional abnormality is seen. IMPRESSION: Suspect mid to lower abdominal central enteritis. No bowel obstruction.
[2018-07-10] MEDS ORDERED: HYDROmorphone 0.5 MG/0.5 ML SYRINGE IVP STA (18:28)
[2018-07-10] MEDS ORDERED: MORPHINE SULFATE 4 MG/ML SYRINGE IV PRN (19:12)
[2018-07-10] MEDS ORDERED: ACETAMINOPHEN TAB 325 MG TAB PO PRN (19:12)
[2018-07-10] MEDS ORDERED: NALOXONE 0.4 MG/ML 1 ML VIAL IV PRN (19:12)
[2018-07-10] MEDS: HYDROmorphone 1 MG/ML 1 ML SYRINGE IVP PRN (21:28)
[2018-07-10 21:43] VITALS: BMI 24.2
[2018-07-11] MEDS: HYDROmorphone 1 MG/ML 1 ML SYRINGE IVP PRN ×6 (04:53→22:50)
[2018-07-11] MEDS: ONDANSETRON 4 MG/2 ML VIAL IVP PRN ×3 (04:54→20:10)
--- NOTE | 2018-07-11 07:07 | P.HPIM ---
History of Present Illness This is a pleasant 53 years old female with past medical history of hysterectomy, recurrent UTI and interstitial cystitis with kidney stones, she follows up with urologist, history of cholecystectomy and hysterectomy with tubal ligation. Who presents because of abdominal pain and nausea and vomiting of 2 days' duration, the pain is on the left side of the abdomen radiating to the back and around. Started as severe and currently with pain medication is 4/10 in severity. No specific. Associated with recurrent vomiting with no blood in its, several bouts patient cannot remember. Also patient is complaining of from dysuria. She usually follows up with urologist Dr. Evans however she hasn't seen him for a while. Patient has no masses, and with history of hysterectomy she got (sometimes but not currently. Patient has 3 colitis in the past 3 years On admission vitals and labs looked unremarkable. Patient is afebrile. CAT scan of the abdomen showing possible mid-to lower abdominal central enteritis Review of Systems CONSTITUTIONAL: No fever, no malaise, no fatigue. HEENT: No recent visual problems or hearing problems. Denied any sore throat. CARDIOVASCULAR: No orthopnea, PND, no palpitations, no syncope. PULMONARY: No shortness of breath, no cough, no hemoptysis. GASTROINTESTINAL: No diarrhea, no nausea, no vomiting, no abdominal pain. Normoactive bowel sounds. NEUROLOGICAL: No headaches, no weakness, no numbness. HEMATOLOGICAL: Denies any bleeding or petechiae. GENITOURINARY: Denies any burning micturition, frequency, or urgency. MUSCULOSKELETAL/RHEUMATOLOGICAL: Denies any joint pain, swelling, or any muscle pain. ENDOCRINE: Denies any polyuria or polydipsia. Past Medical History Past Medical History: No Reported History Additional Past Medical History / Comment(s): COLITIS, uti's, kidney infections, interstitial cystitis, kidney stones History of Any Multi-Drug Resistant Organisms: None Reported Past Surgical History: Appendectomy, Cholecystectomy, Hysterectomy, Tubal Ligation Additional Past Surgical History / Comment(s): novasure ENDOMETRIAL ABLATION, COLONOSCOPY Past Anesthesia/Blood Transfusion Reactions: No Reported Reaction Past Psychological History: No Psychological Hx Reported Smoking Status: Never smoker Past Alcohol Use History: None Reported Past Drug Use History: None Reported - Past Family History Mother Family Medical History: Cancer Father Family Medical History: No Reported History Medications and Allergies Home Medications Medication Instructions Recorded Confirmed Type No Known Home Medications 07/10/18 07/10/18 History Allergies Allergy/AdvReac Type Severity Reaction Status Date / Time metoclopramide [From Reglan] AdvReac Mild Rapid Verified 07/10/18 16:45 Heart Rate prochlorperazine maleate AdvReac Rapid Verified 07/10/18 16:45 [From Compazine] Heart Rate Physical Exam Vitals: Vital Signs Temp Pulse Pulse Resp BP BP Pulse Ox 07/11/18 00:00 98.0 F 77 16 104/64 98 07/10/18 19:46 98.5 F 95 18 119/75 98 07/10/18 19:39 96 16 107/56 100 07/10/18 19:31 12 07/10/18 18:45 98.6 F 96 16 117/86 96 07/10/18 17:54 98.3 F 90 16 118/77 100 07/10/18 16:19 98.8 F 79 18 131/75 100 Intake and Output 07/10/18 07/10/18 07/11/18 14:59 22:59 06:59 Other: Weight 74.843 kg GENERAL: The patient is alert and oriented x3, not in any acute distress. Well developed, well nourished. HEENT: Pupils are round and equally reacting to light. EOMI. No scleral icterus. No conjunctival pallor. Normocephalic, atraumatic. No pharyngeal erythema. No thyromegaly. CARDIOVASCULAR: S1 and S2 present. No murmurs, rubs, or gallops. PULMONARY: Chest is clear to auscultation, no wheezing or crackles. -ABDOMEN: Soft, left abdominal tenderness with no rebound tenderness or guarding, suprapubic tenderness, nondistended, normoactive bowel sounds. No palpable organomegaly. MUSCULOSKELETAL: No joint swelling or deformity. EXTREMITIES: No cyanosis, clubbing, or pedal edema. NEUROLOGICAL: Gross neurological examination did not reveal any focal deficits. SKIN: No rashes. Results CBC & Chem 7: 07/10/18 16:40 07/10/18 16:40 Labs: Abnormal Lab Results - Last 24 Hours (Table) 07/10/18 Range/Units 16:40 Urine Blood Moderate H (Negative) Ur Squamous Epith Cells 6 H (0-4) /hpf Urine Mucus Rare H (None) /hpf Microbiology - Last 24 Hours (Table) 07/10/18 16:40 Urine Culture - Preliminary Urine,Clean Catch Thrombosis Risk Factor Assmnt - Choose All That Apply Any of the Below Risk Factors Present?: No Other Risk Factors: No Other congenital or acquired thrombophilia - If yes, enter type in comment: No Thrombosis Risk Factor Assessment Level: Very Low Risk Assessment and Plan Assessment: acute Gastroenteritis, On the top of recurrent colitis Dysuria and hematuria History of recurrent UTI and interstitial cystitis History of kidney stones History of hysterectomy Plan: This is a pleasant 33 years old female presents with enteritis and hematuria. On admission patient was placed nothing by mouth, started on IV fluids and pain medication. We'll start antibiotics. Gastroenterology consult. Neurology consult for her hematuria. Labs and medication were reviewed.. Continue same treatment. Continue with symptomatic treatment. Resume home medication. Monitor lytes and vitals. DVT and GI prophylaxis. Further recommendations of the clinical course of the eric brasher DVT prophylaxis: Subcutaneous heparin GI Prophylaxis: Protonix Prognosis is guarded
[2018-07-11] MEDS: PANTOPRAZOLE 40 MG/10 ML VIAL IV SCH (09:16)
[2018-07-11] MEDS: HEPARIN SODIUM,PORCINE 5,000 UNIT/ML 1 ML VIAL SQ SCH ×2 (09:16→20:09)
[2018-07-11] MEDS: metroNIDAZOLE-NS PMX 500 MG in SALINE 1 100ML.BAG IVPB SCH ×3 (09:16→23:02)
[2018-07-11] MEDS: SODIUM CHLORIDE 0.9% 1,000 ML IV SCH ×4 (09:17→20:11)
[2018-07-11] MEDS: LEVOFLOXACIN 500MG-D5W PMX 500 MG in DEXTROSE/WATER 1 100ML.BAG IVPB SCH (10:24)
--- NOTE | 2018-07-11 12:18 | P.CONS ---
History of Present Illness - Reason for Consult Consult date: 07/11/18 Nausea vomiting abdominal pain Requesting physician: Martinez E Sheet - Chief Complaint Nausea vomiting abdominal pain - History of Present Illness 33-year-old female with a history of UTIs, interstitial cystitis, colitis, admitted with acute left-sided abdominal pain nausea vomiting since Tuesday. Denies diarrhea. No hematemesis hematochezia melena. CT abdomen and pelvis reported no evidence of bowel obstruction correlate for possible enteritis. She's had multiple CAT scans of the abdomen in the past some reported as negative others reporting colitis type features. Colonoscopy [address] Jackson for evaluation of rectal bleeding and colitis reported no evidence of diverticulosis or colon rectal neoplasia. Biopsies were not obtained. He should is frustrated unsure why she keeps having flareups of abdominal pain. Patient is unsure if she has inflammatory bowel disease. No fever or chills. No weight loss. No changes in diet or medications. No recent travels or sick contacts. CBC CMP within normal limits. HCG not detected. Urology consulted. Review of Systems RConstitutional: Denies fever, chills, sweats, weight gain, or loss. HEENT: Negative for migraines, blurred vision or loss, earaches, drainage, tinnitus, oral mucosal lesions, dysphagia, or odynophagia. CARDIAC: Negative for chest pain, arrhythmias, or palpitation. RESPIRATORY: Negative for shortness of breath, hemoptysis, cough, or sputum production. GI: See HPI for pertinent findings. : Negative for hematuria, urgency, frequency, polyuria, or dysuria. GYNc: Denies possibility of . Negative vaginal discharge. MUSCULOSKELETAL: Negative for muscle aches, swelling, arthritis, and arthralgias. NEUROLOGIC: Negative for stroke or TIA. ENDOCRINE: Negative for thyroid problems. SKIN: Negative for rash or itching. PSYCHIATRIC: Negative history for depression and anxietyale Past Medical History Past Medical History: No Reported History Additional Past Medical History / Comment(s): COLITIS, uti's, kidney infections, interstitial cystitis, kidney stones History of Any Multi-Drug Resistant Organisms: None Reported Past Surgical History: Appendectomy, Cholecystectomy, Hysterectomy, Tubal Ligation Additional Past Surgical History / Comment(s): novasure ENDOMETRIAL ABLATION, COLONOSCOPY Past Anesthesia/Blood Transfusion Reactions: No Reported Reaction Past Psychological History: No Psychological Hx Reported Smoking Status: Never smoker Past Alcohol Use History: None Reported Past Drug Use History: None Reported - Past Family History Mother Family Medical History: Cancer Father Family Medical History: No Reported History Medications and Allergies Home Medications Medication Instructions Recorded Confirmed Type No Known Home Medications 07/10/18 07/10/18 History Allergies Allergy/AdvReac Type Severity Reaction Status Date / Time metoclopramide [From Reglan] AdvReac Mild Rapid Verified 07/10/18 16:45 Heart Rate prochlorperazine maleate AdvReac Rapid Verified 07/10/18 16:45 [From Compazine] Heart Rate Physical Exam Vitals: Vital Signs Temp Pulse Pulse Resp BP BP Pulse Ox 07/11/18 08:00 98.4 F 62 15 98/63 99 07/11/18 00:00 98.0 F 77 16 104/64 98 07/10/18 19:46 98.5 F 95 18 119/75 98 07/10/18 19:39 96 16 107/56 100 07/10/18 19:31 12 07/10/18 18:45 98.6 F 96 16 117/86 96 07/10/18 17:54 98.3 F 90 16 118/77 100 07/10/18 16:19 98.8 F 79 18 131/75 100 Intake and Output 07/10/18 07/11/18 07/11/18 22:59 06:59 14:59 Other: Voiding Method Toilet Weight 74.843 kg General appearance: The patient is alert, oriented, in no acute distress. HET: Head is normocephalic and atraumatic. Pupils are equal and reactive. Oropharynx is clear without lesions. Neck: Supple without lymphadenopathy. Trachea midline. Heart: S1 S2. Regular rate and rhythm. Lungs: No crackles or wheezes are heard. Abdomen: Soft, mild tenderness to the left lower quadrant, nondistended with bowel sounds. No peritoneal signs. No palpable organomegaly or masses. Extremities: Normal skin color and turgor. No cyanosis, rash, ulceration, clubbing, or edema. Radial and pedal pulses are 2/4 bilaterally. Neurological: No focal deficits. Strength and sensation are grossly intact. Results CBC & Chem 7: 07/12/18 07:38 07/12/18 07:38 Labs: Abnormal Lab Results - Last 24 Hours (Table) 07/10/18 Range/Units 16:40 Urine Blood Moderate H (Negative) Ur Squamous Epith Cells 6 H (0-4) /hpf Urine Mucus Rare H (None) /hpf Microbiology - Last 24 Hours (Table) 07/10/18 16:40 Urine Culture - Preliminary Urine,Clean Catch CT scan - abdomen: report reviewed (Dr. Castaneda) Assessment and Plan (1) Abdominal pain Narrative/Plan: 33-year-old female admitted with intractable nausea and abdominal pain without diarrhea with history of interstitial cystitis and colitis. CT demonstrated no evidence of bowel obstruction possible enteritis. Colonoscopy reviewed 2014 no evidence of colitis or colorectal neoplasia biopsies not taken. Etiology of her abdominal pain is unclear possible IBS possible gastroenteritis an underlying inflammatory bowel disease cannot be excluded. Current Visit: Yes Status: Acute Code(s): R10.9 - UNSPECIFIED ABDOMINAL PAIN SNOMED Code(s): 65586374 Plan: 1. Sed rate CRP. Bentyl 10 mg 4 times a day. Stool studies if patient has diarrhea. Continue with empiric IV antibiotics. Urology consulted. Inpatient endoscopic exam contingent on clinical course not planned at this time. We'll follow with you. Light diet as tolerated. Thank you for this kind referral and the opportunity to participate in the care of your patient. This consultation was discussed with Dr. Castaneda. The impression and plan of care have been directed as dictated.
[2018-07-11] MEDS: DICYCLOMINE 10 MG CAP PO SCH ×3 (12:57→20:10)
--- NOTE | 2018-07-11 15:31 | P.GSCN ---
History of Present Illness Consult date: 07/11/18 History of present illness: This is a 33-year-old female admitted to the hospital with abdominal pain. She has a history of colitis as well as interstitial cystitis. This is gone on several days. She also has been complaining of difficulty with urination and burning with urination over the last weeks of. She has seen in the past for interstitial cystitis. He had recommended she be placed in [place] on but it was too expensive. She has had cystoscopy with hydrodistention's the last being approximately year ago with decent results of. The pain that she has however his left upper quadrant more consistent with bowel. She was seen by Dr. Castaneda and had her Bentyl increased to 10 mg 4 times a day with a decent results of. She had a minimal amount of microscopic hematuria. She states that she's had gross hematuria. The CAT scan is unremarkable urologically. She has had the interstitial cystitis with hematuria in the past. Lucinda urine infect ion. Review of Systems - Constitutional Reports as per HPI, Reports anorexia, Reports chronic pain - Gastrointestinal Reports as per HPI - Genitourinary Genitourinary: Reports as per HPI, Reports dysuria, Reports hematuria, Reports urgency Past Medical History Past Medical History: No Reported History Additional Past Medical History / Comment(s): COLITIS, uti's, kidney infections, interstitial cystitis, kidney stones History of Any Multi-Drug Resistant Organisms: None Reported Past Surgical History: Appendectomy, Cholecystectomy, Hysterectomy, Tubal Ligation Additional Past Surgical History / Comment(s): novasure ENDOMETRIAL ABLATION, COLONOSCOPY Past Anesthesia/Blood Transfusion Reactions: No Reported Reaction Past Psychological History: No Psychological Hx Reported Smoking Status: Never smoker Past Alcohol Use History: None Reported Past Drug Use History: None Reported - Past Family History Mother Family Medical History: Cancer Father Family Medical History: No Reported History Medications and Allergies Home Medications Medication Instructions Recorded Confirmed Type No Known Home Medications 07/10/18 07/10/18 History Allergies Allergy/AdvReac Type Severity Reaction Status Date / Time metoclopramide [From Reglan] AdvReac Mild Rapid Verified 07/10/18 16:45 Heart Rate prochlorperazine maleate AdvReac Rapid Verified 07/10/18 16:45 [From Compazine] Heart Rate Surgical - Exam Vital Signs Temp Pulse Resp BP Pulse Ox 98.8 F 79 18 131/75 100 07/10/18 16:19 07/10/18 16:19 07/10/18 16:19 07/10/18 16:19 07/10/18 16:19 - General well developed, well nourished, moderate pain - Eyes PERRL - ENT no hearing loss - Respiratory normal expansion, normal respiratory effort - Cardiovascular Rhythm: regular - Abdomen Abdomen: soft, tender - Neurologic normal coordination, normal sensation - Musculoskeletal normal gait, normal posture - Psychiatric oriented to time, oriented to place, speech is normal, memory intact Results - Labs 07/10/18 16:40 07/10/18 16:40 Abnormal Lab Results - Last 24 Hours (Table) 07/10/18 Range/Units 16:40 Urine Blood Moderate H (Negative) Ur Squamous Epith Cells 6 H (0-4) /hpf Urine Mucus Rare H (None) /hpf Microbiology - Last 24 Hours (Table) 07/10/18 16:40 Urine Culture - Preliminary Urine,Clean Catch Diabetes panel 07/10/18 Range/Units 16:40 Sodium 141 (137-145) mmol/L Potassium 4.0 (3.5-5.1) mmol/L Chloride 105 (98-107) mmol/L Carbon Dioxide 26 (22-30) mmol/L BUN 14 (7-17) mg/dL Creatinine 0.64 (0.52-1.04) mg/dL Glucose 84 (74-99) mg/dL Calcium 9.8 (8.4-10.2) mg/dL AST 15 (14-36) U/L ALT 22 (9-52) U/L Alkaline Phosphatase 63 (38-126) U/L Total Protein 7.6 (6.3-8.2) g/dL Albumin 4.8 (3.5-5.0) g/dL Calcium panel 07/10/18 Range/Units 16:40 Calcium 9.8 (8.4-10.2) mg/dL Albumin 4.8 (3.5-5.0) g/dL Pituitary panel 07/10/18 Range/Units 16:40 Sodium 141 (137-145) mmol/L Potassium 4.0 (3.5-5.1) mmol/L Chloride 105 (98-107) mmol/L Carbon Dioxide 26 (22-30) mmol/L BUN 14 (7-17) mg/dL Creatinine 0.64 (0.52-1.04) mg/dL Glucose 84 (74-99) mg/dL Calcium 9.8 (8.4-10.2) mg/dL Adrenal panel 07/10/18 Range/Units 16:40 Sodium 141 (137-145) mmol/L Potassium 4.0 (3.5-5.1) mmol/L Chloride 105 (98-107) mmol/L Carbon Dioxide 26 (22-30) mmol/L BUN 14 (7-17) mg/dL Creatinine 0.64 (0.52-1.04) mg/dL Glucose 84 (74-99) mg/dL Calcium 9.8 (8.4-10.2) mg/dL Total Bilirubin 0.3 (0.2-1.3) mg/dL AST 15 (14-36) U/L ALT 22 (9-52) U/L Alkaline Phosphatase 63 (38-126) U/L Total Protein 7.6 (6.3-8.2) g/dL Albumin 4.8 (3.5-5.0) g/dL - Imaging CT scan - abdomen: report reviewed, image reviewed CT scan - pelvis: report reviewed, image reviewed Assessment and Plan Assessment: Impression: Abdominal pain possibly due to exacerbation of colitis. History of interstitial cystitis that is probably worsening. Minimal microscopic hematuria related to interstitial cystitis Recommendations: From a urologic standpoint nothing needs to be done during this hospitalization. She might benefit from an outpatient cystoscopy with hydrodistention. He is been instructed to contact or me upon discharge to make a follow-up appointment
[2018-07-12] MEDS: HYDROmorphone 1 MG/ML 1 ML SYRINGE IVP PRN ×6 (01:51→20:11)
[2018-07-12] MEDS: ONDANSETRON 4 MG/2 ML VIAL IVP PRN ×2 (04:51→16:13)
[2018-07-12] MEDS: LEVOFLOXACIN 500MG-D5W PMX 500 MG in DEXTROSE/WATER 1 100ML.BAG IVPB SCH (06:45)
[2018-07-12] MEDS: HEPARIN SODIUM,PORCINE 5,000 UNIT/ML 1 ML VIAL SQ SCH ×2 (07:50→20:10)
[2018-07-12] MEDS: DICYCLOMINE 10 MG CAP PO SCH ×4 (07:50→20:10)
[2018-07-12] MEDS: metroNIDAZOLE-NS PMX 500 MG in SALINE 1 100ML.BAG IVPB SCH (07:50)
[2018-07-12] MEDS: PANTOPRAZOLE 40 MG/10 ML VIAL IV SCH (07:51)
[2018-07-12] MEDS: SODIUM CHLORIDE 0.9% 1,000 ML IV SCH ×2 (07:52→16:12)
[2018-07-12 08:03] LABS: Basophils % (A) 1 %; Eosinophils # (A) 0.2 k/uL (0-0.7); Eosinophils % (A) 2 %; HGB 12.3 gm/dL (11.4-16.0); Lymphocytes # (A) 2.7 k/uL (1.0-4.8); Lymphocytes % (A) 37 %; MCH 31.4 pg (25.0-35.0); MCHC 33.4 g/dL (31.0-37.0); MCV 94.1 fL (80.0-100.0); Monocytes # (A) 0.4 k/uL (0-1.0); Monocytes % (A) 6 %; Neutrophils # (A) 3.8 k/uL (1.3-7.7); Neutrophils % (A) 52 %; Platelet Count 290 k/uL (150-450); RBC 3.93 m/uL (3.80-5.40); RDW 12.1 % (11.5-15.5); WBC 7.2 k/uL (3.8-10.6)
[2018-07-12 08:12] LABS: Anion Gap 9 mmol/L; Blood Urea Nitrogen 9 mg/dL (7-17); Calcium 8.8 mg/dL (8.4-10.2); Carbon Dioxide 22 mmol/L (22-30); Chloride 107 mmol/L (98-107); Glucose 82 mg/dL (74-99); Potassium 4.2 mmol/L (3.5-5.1); Sodium 138 mmol/L (137-145)
--- NOTE | 2018-07-12 11:14 | P.PN ---
Subjective Progress Note Date: 07/12/18 Principal diagnosis: Abdominal pain nausea vomiting Patient reports emesis last night. No bleeding. No diarrhea. Abdominal pain slightly improved Bentyl started yesterday. ESR CRP CBC within normal limits. Objective - Vital Signs Vital signs: Vital Signs Temp 98.3 F 07/12/18 07:15 Pulse 73 07/12/18 07:15 Resp 16 07/12/18 07:15 BP 103/67 07/12/18 07:15 Pulse Ox 100 07/12/18 07:15 Intake & Output 07/11/18 07/12/18 07/12/18 18:59 06:59 18:59 Other: Voiding Method Toilet Toilet Toilet # Voids 1 1 - Exam General appearance: The patient is alert, oriented, in no acute distress. HET: Head is normocephalic and atraumatic. Pupils are equal and reactive. Oropharynx is clear without lesions. Neck: Supple without lymphadenopathy. Trachea midline. Heart: S1 S2. Regular rate and rhythm. Lungs: No crackles or wheezes are heard. Abdomen: Soft, mild tenderness to the bilateral lower abdomen, nondistended with bowel sounds. No peritoneal signs. No palpable organomegaly or masses. Extremities: Normal skin color and turgor. No cyanosis, rash, ulceration, clubbing, or edema. Radial and pedal pulses are 2/4 bilaterally. Neurological: No focal deficits. Strength and sensation are grossly intact. - Labs CBC & Chem 7: 07/12/18 07:38 07/12/18 07:38 Labs: Microbiology - Last 24 Hours (Table) 07/10/18 16:40 Urine Culture - Final Urine,Clean Catch Assessment and Plan (1) Abdominal pain Narrative/Plan: 33-year-old female admitted with intractable nausea and abdominal pain without diarrhea with history of interstitial cystitis and colitis. CT demonstrated no evidence of bowel obstruction possible enteritis. Colonoscopy reviewed 2014 no evidence of colitis or colorectal neoplasia biopsies not taken. Etiology of her abdominal pain is unclear possible IBS possible gastroenteritis, an underlying inflammatory bowel disease cannot be excluded. Current Visit: Yes Status: Acute Code(s): R10.9 - UNSPECIFIED ABDOMINAL PAIN SNOMED Code(s): 51096041 Plan: 1. CBC sed rate CRP within normal limits. No active diarrhea. Dr. Castaneda recommends Bentyl 10 mg 4 times a day with outpatient follow-up in 3-4 weeks reevaluation possible outpatient endoscopy. Inpatient endoscopic exams not planned at this time. Diet as tolerated. Assessment and plan a care discussed with Dr. Castaneda
--- NOTE | 2018-07-12 12:10 | P.PN ---
Subjective This is a pleasant 53 years old female with past medical history of hysterectomy, recurrent UTI and interstitial cystitis with kidney stones, she fo llows up with urologist, history of cholecystectomy and hysterectomy with tubal ligation. Who presents because of abdominal pain and nausea and vomiting of 2 days' duration, the pain is on the left side of the abdomen radiating to the back and around. Started as severe and currently with pain medication is 4/10 in severity. No specific. Associated with recurrent vomiting with no blood in its, several bouts patient cannot remember. Also patient is complaining of from dysuria. She usually follows up with urologist Dr. Evans however she hasn't seen him for a while. Patient has no masses, and with history of hysterectomy she got (sometimes but not currently. Patient has 3 colitis in the past 3 years On admission vitals and labs looked unremarkable. Patient is afebrile. CAT scan of the abdomen showing possible mid-to lower abdominal central enteritis 07/15/2018 Patient states that her abdominal pain feels better, no diarrhea, she vomited once, her dysuria is improving. Patient is eating currently. Vitals are stable. Lab shows no leukocytosis. No fever. ESR and C-reactive proteins are within normal limits. Patient has been followed by GI team and Bentyl was started, most likely patient have irritable bowel syndrome. Gastroenterology team are cleared the patient for discharge once her symptoms are controlled and she couldn't tolerate diet. Patient also has been evaluated by urologist and he recommended outpatient follow-up with her neurologist Dr. Evans Discharge in 24-48 hours Objective - Vital Signs Vital signs: Vital Signs Temp 98.3 F 07/12/18 07:15 Pulse 73 07/12/18 07:15 Resp 16 07/12/18 07:15 BP 103/67 07/12/18 07:15 Pulse Ox 100 07/12/18 07:15 Intake & Output 07/11/18 07/12/18 07/12/18 18:59 06:59 18:59 Intake Total 200 Balance 200 Intake: Other 200 Other: Voiding Method Toilet Toilet Toilet # Voids 1 1 - Exam GENERAL: The patient is alert and oriented x3, not in any acute distress. Well developed, well nourished. HEENT: Pupils are round and equally reacting to light. EOMI. No scleral icterus. No conjunctival pallor. Normocephalic, atraumatic. No pharyngeal erythema. No thyromegaly. CARDIOVASCULAR: S1 and S2 present. No murmurs, rubs, or gallops. PULMONARY: Chest is clear to auscultation, no wheezing or crackles. ABDOMEN: Soft, nontender, nondistended, normoactive bowel sounds. No palpable organomegaly. MUSCULOSKELETAL: No joint swelling or deformity. EXTREMITIES: No cyanosis, clubbing, or pedal edema. NEUROLOGICAL: Gross neurological examination did not reveal any focal deficits. SKIN: No rashes. - Labs CBC & Chem 7: 07/12/18 07:38 07/12/18 07:38 Labs: Microbiology - Last 24 Hours (Table) 07/10/18 16:40 Urine Culture - Final Urine,Clean Catch Assessment and Plan Assessment: Irritable bowel syndrome, less likely acute Gastroenteritis, Dysuria and hematuria History of recurrent colitis History of recurrent UTI and interstitial cystitis History of kidney stones History of hysterectomy Plan: This is a pleasant 33 years old female presents with enteritis and hematuria. On admission patient was placed nothing by mouth, started on IV fluids and pain medication. We'll start antibiotics. Gastroenterology consult. Neurology consult for her hematuria. Labs and medication were reviewed.. Continue same treatment. Continue with symptomatic treatment. Resume home medication. Monitor lytes and vitals. DVT and GI prophylaxis. Further recommendations of the clinical course of the patient DVT prophylaxis: Subcutaneous heparin GI Prophylaxis: Protonix Prognosis is guarded
[2018-07-12] MEDS: metroNIDAZOLE 500 MG TAB PO SCH (17:04)
[2018-07-13] MEDS: HYDROmorphone 1 MG/ML 1 ML SYRINGE IVP PRN ×3 (00:24→08:54)
[2018-07-13] MEDS: metroNIDAZOLE 500 MG TAB PO SCH ×3 (00:24→14:50)
[2018-07-13] MEDS: SODIUM CHLORIDE 0.9% 1,000 ML IV SCH ×2 (04:04→08:53)
[2018-07-13] MEDS: ONDANSETRON 4 MG/2 ML VIAL IVP PRN (08:14)
[2018-07-13] MEDS: HEPARIN SODIUM,PORCINE 5,000 UNIT/ML 1 ML VIAL SQ SCH (08:14)
[2018-07-13] MEDS: DICYCLOMINE 10 MG CAP PO SCH ×2 (08:15→12:28)
[2018-07-13] MEDS ORDERED: LEVOFLOXACIN 500 MG TAB PO SCH (09:00)
[2018-07-13] MEDS ORDERED: PANTOPRAZOLE 40 MG TABLET PO SCH (09:00)
[2018-07-13 10:17] VITALS: RESP 16
[2018-07-13] MEDS ORDERED: traMADol 50 MG TAB PO PRN (12:06)
[2018-07-13 13:19] VITALS: BP 107/70; PULSE 76; TEMP 99.6
== END 2018-07-13 15:09 | disposition home or self-care (01) | DRG 392 ==
LOC: EC 16:18 → 1SOBS 19:12 → OBSVTOIN 07-11 15:11 → 6PED 07-13 08:51
PROVIDERS: ADMIT Hospitalist; ATTEND Hospitalist
DX: K58.9 Irritable bowel syndrome, unspecified (principal); N30.11 Interstitial cystitis (chronic) with hematuria; Z87.440 Personal history of urinary (tract) infections; Z87.442 Personal history of urinary calculi; Z90.49 Acquired absence of other specified parts of digestive tract; Z90.710 Acquired absence of both cervix and uterus; Z79.899 Other long term (current) drug therapy; Z80.9 Family history of malignant neoplasm, unspecified
CPT/HCPCS: 36415; 74177; 80048; 80053; 81001; 81025; 83690; 85025; 85652; 86140; 87086; 96361; 96374; 96375; 99285

== ENCOUNTER 2018-07-27 15:57 | Emergency (ER) | payer OTHER ==
--- NOTE | 2018-07-27 17:23 | ED ---
General Adult HPI - General Chief complaint: Fever Stated complaint: fever/vomiting Time Seen by Provider: 07/27/18 16:52 Source: patient, RN notes reviewed Mode of arrival: ambulatory Limitations: no limitations - History of Present Illness Initial comments: 33-year-old female with a past medical history of colitis, UTIs, kidney infections, interstitial cystitis presents to the emergency department for a chief complaint of fever. Patient states fever started today. Patient states she had a sore throat cough and left lower quadrant pain starting yesterday. Patient does admit to one episode of vomiting. Denies any diarrhea. States she was recently admitted 2 weeks ago for enteritis but that that had since resolved. Denies any shortness of breath. Denies any chest pain. Does admit to dysuria, denies any concern for sexual transmitted diseases. States she has not been sexually active in quite some time. Has had a hysterectomy.Patient has no other complaints at this time including shortness of breath, chest pain, abdominal pain, nausea or vomiting, headache, or visual changes. - Related Data Home Medications Medication Instructions Recorded Confirmed No Known Home Medications 07/27/18 07/27/18 Allergies Allergy/AdvReac Type Severity Reaction Status Date / Time metoclopramide [From Reglan] AdvReac Mild Rapid Verified 07/27/18 16:58 Heart Rate prochlorperazine maleate AdvReac Rapid Verified 07/27/18 16:58 [From Compazine] Heart Rate Review of Systems ROS Statement: Those systems with pertinent positive or pertinent negative responses have been documented in the HPI. ROS Other: All systems not noted in ROS Statement are negative. Past Medical History Past Medical History: No Reported History Additional Past Medical History / Comment(s): COLITIS, uti's, kidney infections, interstitial cystitis, kidney stones History of Any Multi-Drug Resistant Organisms: None Reported Past Surgical History: Appendectomy, Cholecystectomy, Hysterectomy, Tubal Ligation Additional Past Surgical History / Comment(s): novasure ENDOMETRIAL ABLATION, COLONOSCOPY Past Anesthesia/Blood Transfusion Reactions: No Reported Reaction Past Psychological History: No Psychological Hx Reported Smoking Status: Never smoker Past Alcohol Use History: None Reported Past Drug Use History: None Reported - Past Family History Mother Family Medical History: Cancer Father Family Medical History: No Reported History General Exam Limitations: no limitations General appearance: alert, in no apparent distress Head exam: Present: atraumatic, normocephalic, normal inspection Eye exam: Present: normal appearance, PERRL, EOMI. Absent: scleral icterus, conjunctival injection, periorbital swelling ENT exam: Present: normal exam, normal oropharynx (Soma erythematous however uvula midline, no tonsillar states that bilaterally. There is some postnasal drip noted), mucous membranes moist, TM's normal bilaterally, normal external ear exam Neck exam: Present: normal inspection, full ROM. Absent: tenderness, meningismus, lymphadenopathy Respiratory exam: Present: normal lung sounds bilaterally. Absent: respiratory distress, wheezes, rales, rhonchi, stridor Cardiovascular Exam: Present: regular rate, normal rhythm, normal heart sounds. Absent: systolic murmur, diastolic murmur, rubs, gallop, clicks GI/Abdominal exam: Present: soft, tenderness (Patient does have some left lower quadrant tenderness as well as suprapubic tenderness), normal bowel sounds. Absent: distended, guarding, rebound, rigid External exam: Present: normal external exam. Absent: erythema, swelling, l esions, lacerations, ecchymosis Speculum exam: Present: normal speculum exam, vaginal discharge (Minimal vaginal discharge noted, no foul odor.). Absent: erythema, cervical discharge, vaginal bleeding, foreign body, tissue, laceration By manual exam: Present: normal by manual exam, uterine tenderness (Patient does have mild uterine tenderness). Absent: cervical motion tenderness (No cervical motion tenderness), adnexal tenderness Neurological exam: Present: alert, oriented X3, CN II-XII intact Psychiatric exam: Present: normal affect, normal mood Course Vital Signs 07/27/18 16:12 Temperature 101.9 F H Pulse Rate 105 H Respiratory 18 Rate Blood Pressure 102/63 O2 Sat by Pulse 98 Oximetry Medical Decision Making - Medical Decision Making 33-year-old female presents to the emergency department for fever. Patient has had cough congestion sore throat for 1 day as well as abdominal pain. Patient is adamant with a fever of 101.9, given Tylenol. Patient does have some left lower quadrant pain as well as suprapubic pain. Pelvic exam generally unremarkable, no cervical motion tenderness. Gonorrhea chlamydia pending, Trichomonas negative. Patient has history of hysterectomy. Lungs are clear also vision bilaterally. Patient does have an erythematous oropharynx without tonsillar exudates. Strep is negative. Influenza is negative. CBC CMP is unremarkable. Urine does not show any evidence of infection. CT abdomen and pelvis does not show any abnormalities. Fever likely related to viral syndrome as patient has had cough congestion sore throat for 1 day. Gonorrhea chlamydia pending however patient is not concerned for STDs so will follow-up on results. Patient will return here if she has any worsening symptoms. - Lab Data Result diagrams: 07/27/18 18:05 07/27/18 18:05 Lab Results 07/27/18 07/27/18 07/27/18 Range/Units 18:05 18:05 18:05 WBC 6.2 (3.8-10.6) k/uL RBC 4.12 (3.80-5.40) m/uL Hgb 12.8 (11.4-16.0) gm/dL Hct 39.0 (34.0-46.0) % MCV 94.6 (80.0-100.0) fL MCH 31.0 (25.0-35.0) pg MCHC 32.8 (31.0-37.0) g/dL RDW 11.9 (11.5-15.5) % Plt Count 329 (150-450) k/uL Neutrophils % 77 % Lymphocytes % 9 % Monocytes % 8 % Eosinophils % 3 % Basophils % 0 % Neutrophils # 4.8 (1.3-7.7) k/uL Lymphocytes # 0.6 L (1.0-4.8) k/uL Monocytes # 0.5 (0-1.0) k/uL Eosinophils # 0.2 (0-0.7) k/uL Basophils # 0.0 (0-0.2) k/uL Sodium 135 L (137-145) mmol/L Potassium 4.2 (3.5-5.1) mmol/L Chloride 104 (98-107) mmol/L Carbon Dioxide 24 (22-30) mmol/L Anion Gap 7 mmol/L BUN 8 (7-17) mg/dL Creatinine 0.50 L (0.52-1.04) mg/dL Est GFR (CKD-EPI)AfAm >90 (>60 ml/min/1.73 sqM) Est GFR (CKD-EPI)NonAf >90 (>60 ml/min/1.73 sqM) Glucose 79 (74-99) mg/dL Plasma Lactic Acid Kevin (0.7-2.0) mmol/L Calcium 9.6 (8.4-10.2) mg/dL Total Bilirubin 0.5 (0.2-1.3) mg/dL AST 21 (14-36) U/L ALT 17 (9-52) U/L Alkaline Phosphatase 61 (38-126) U/L Total Protein 7.3 (6.3-8.2) g/dL Albumin 4.5 (3.5-5.0) g/dL Urine Color Urine Appearance (Clear) Urine pH (5.0-8.0) Ur Specific [place] (1.001-1.035) Urine Protein (Negative) Urine Glucose (UA) (Negative) Urine Ketones (Negative) Urine Blood (Negative) Urine Nitrite (Negative) Urine Bilirubin (Negative) Urine Urobilinogen (<2.0) mg/dL Ur Leukocyte Esterase (Negative) Urine RBC (0-5) /hpf Urine WBC (0-5) /hpf Ur Squamous Epith Cells (0-4) /hpf Urine Mucus (None) /hpf Urine HCG, Qual Not Detected (Not Detectd) Influenza Type A RNA (Not Detectd) Influenza Type B (PCR) (Not Detectd) Group A Strep Rapid (Negative) Trichomonas Ag (Rapid) (Negative) 07/27/18 07/27/18 07/27/18 Range/Units 18:05 18:05 18:05 WBC (3.8-10.6) k/uL RBC (3.80-5.40) m/uL Hgb (11.4-16.0) gm/dL Hct (34.0-46.0) % MCV (80.0-100.0) fL MCH (25.0-35.0) pg MCHC (31.0-37.0) g/dL RDW (11.5-15.5) % Plt Count (150-450) k/uL Neutrophils % % Lymphocytes % % Monocytes % % Eosinophils % % Basophils % % Neutrophils # (1.3-7.7) k/uL Lymphocytes # (1.0-4.8) k/uL Monocytes # (0-1.0) k/uL Eosinophils # (0-0.7) k/uL Basophils # (0-0.2) k/uL Sodium (137-145) mmol/L Potassium (3.5-5.1) mmol/L Chloride (98-107) mmol/L Carbon Dioxide (22-30) mmol/L Anion Gap mmol/L BUN (7-17) mg/dL Creatinine (0.52-1.04) mg/dL Est GFR (CKD-EPI)AfAm (>60 ml/min/1.73 sqM) Est GFR (CKD-EPI)NonAf (>60 ml/min/1.73 sqM) Glucose (74-99) mg/dL Plasma Lactic Acid Kevin 0.5 L (0.7-2.0) mmol/L Calcium (8.4-10.2) mg/dL Total Bilirubin (0.2-1.3) mg/dL AST (14-36) U/L ALT (9-52) U/L Alkaline Phosphatase (38-126) U/L Total Protein (6.3-8.2) g/dL Albumin (3.5-5.0) g/dL Urine Color Yellow Urine Appearance Cloudy H (Clear) Urine pH 8.0 (5.0-8.0) Ur Specific [place] 1.029 (1.001-1.035) Urine Protein Trace H (Negative) Urine Glucose (UA) Negative (Negative) Urine Ketones Trace H (Negative) Urine Blood Small H (Negative) Urine Nitrite Negative (Negative) Urine Bilirubin Negative (Negative) Urine Urobilinogen <2.0 (<2.0) mg/dL Ur Leukocyte Esterase Negative (Negative) Urine RBC 16 H (0-5) /hpf Urine WBC 2 (0-5) /hpf Ur Squamous Epith Cells 1 (0-4) /hpf Urine Mucus Few H (None) /hpf Urine HCG, Qual (Not Detectd) Influenza Type A RNA (Not Detectd) Influenza Type B (PCR) (Not Detectd) Group A Strep Rapid Negative (Negative) Trichomonas Ag (Rapid) (Negative) 07/27/18 07/27/18 Range/Units 18:35 19:20 WBC (3.8-10.6) k/uL RBC (3.80-5.40) m/uL Hgb (11.4-16.0) gm/dL Hct (34.0-46.0) % MCV (80.0-100.0) fL MCH (25.0-35.0) pg MCHC (31.0-37.0) g/dL RDW (11.5-15.5) % Plt Count (150-450) k/uL Neutrophils % % Lymphocytes % % Monocytes % % Eosinophils % % Basophils % % Neutrophils # (1.3-7.7) k/uL Lymphocytes # (1.0-4.8) k/uL Monocytes # (0-1.0) k/uL Eosinophils # (0-0.7) k/uL Basophils # (0-0.2) k/uL Sodium (137-145) mmol/L Potassium (3.5-5.1) mmol/L Chloride (98-107) mmol/L Carbon Dioxide (22-30) mmol/L Anion Gap mmol/L BUN (7-17) mg/dL Creatinine (0.52-1.04) mg/dL Est GFR (CKD-EPI)AfAm (>60 ml/min/1.73 sqM) Est GFR (CKD-EPI)NonAf (>60 ml/min/1.73 sqM) Glucose (74-99) mg/dL Plasma Lactic Acid Kevin (0.7-2.0) mmol/L Calcium (8.4-10.2) mg/dL Total Bilirubin (0.2-1.3) mg/dL AST (14-36) U/L ALT (9-52) U/L Alkaline Phosphatase (38-126) U/L Total Protein (6.3-8.2) g/dL Albumin (3.5-5.0) g/dL Urine Color Urine Appearance (Clear) Urine pH (5.0-8.0) Ur Specific [place] (1.001-1.035) Urine Protein (Negative) Urine Glucose (UA) (Negative) Urine Ketones (Negative) Urine Blood (Negative) Urine Nitrite (Negative) Urine Bilirubin (Negative) Urine Urobilinogen (<2.0) mg/dL Ur Leukocyte Esterase (Negative) Urine RBC (0-5) /hpf Urine WBC (0-5) /hpf Ur Squamous Epith Cells (0-4) /hpf Urine Mucus (None) /hpf Urine HCG, Qual (Not Detectd) Influenza Type A RNA Not Detected (Not Detectd) Influenza Type B (PCR) Not Detected (Not Detectd) Group A Strep Rapid (Negative) Trichomonas Ag (Rapid) Negative (Negative) Disposition Clinical Impression: Viral syndrome Disposition: HOME SELF-CARE Condition: Good Instructions (If sedation given, give patient instructions): Fever in Adults (ED), Viral Syndrome (ED) Additional Instructions: Please take Motrin and Tylenol for fever. If you have any worsening symptoms return to the emergency department. Otherwise follow-up with primary care in 1- 2 days. Is patient prescribed a controlled substance at d/c from ED?: No Referrals: Mara Jack MD [Primary Care Provider] - 1-2 days Time of Disposition: 21:46
[2018-07-27] MEDS ORDERED: SODIUM CHLORIDE 0.9% 1,000 ML IV STA (17:44)
[2018-07-27] MEDS ORDERED: ACETAMINOPHEN TAB 500 MG TAB PO STA (18:13)
[2018-07-27 18:21] LABS: Basophils % (A) 0 %; Eosinophils # (A) 0.2 k/uL (0-0.7); Eosinophils % (A) 3 %; HGB 12.8 gm/dL (11.4-16.0); Lymphocytes # (A) 0.6 k/uL (1.0-4.8); Lymphocytes % (A) 9 %; MCHC 32.8 g/dL (31.0-37.0); MCV 94.6 fL (80.0-100.0); Mean Platelet Volume 6.4; Monocytes # (A) 0.5 k/uL (0-1.0); Monocytes % (A) 8 %; Neutrophils # (A) 4.8 k/uL (1.3-7.7); Neutrophils % (A) 77 %; Platelet Count 329 k/uL (150-450); RBC 4.12 m/uL (3.80-5.40); RDW 11.9 % (11.5-15.5); WBC 6.2 k/uL (3.8-10.6)
[2018-07-27 18:28] LABS: Appearance,Urine Cloudy (Clear); Bilirubin,Urine Negative (Negative); Blood,Urine Small (Negative); Color,Urine Yellow; Glucose,Urine (UA) Negative (Negative); Ketones,Urine Trace (Negative); Leukocyte Esterase,Urine Negative (Negative); Mucus,Urine Few /hpf; Nitrite,Urine Negative (Negative); Protein,Urine Trace (Negative); RBC,Urine 16 /hpf (0-5); Specific Gravity,Urine 1.029 (1.001-1.035); Squamous Epithelial Cell,Urine 1 /hpf (0-4); Urobilinogen,Urine <2.0 mg/dL (<2.0); WBC,Urine 2 /hpf (0-5)
[2018-07-27 18:35] LABS: ALT 17 U/L (9-52); AST 21 U/L (14-36); Albumin 4.5 g/dL (3.5-5.0); Alkaline Phosphatase 61 U/L (38-126); Anion Gap 7 mmol/L; Blood Urea Nitrogen 8 mg/dL (7-17); Calcium 9.6 mg/dL (8.4-10.2); Carbon Dioxide 24 mmol/L (22-30); Chloride 104 mmol/L (98-107); Glucose 79 mg/dL (74-99); Potassium 4.2 mmol/L (3.5-5.1); Sodium 135 mmol/L (137-145); Total Bilirubin 0.5 mg/dL (0.2-1.3); Total Protein 7.3 g/dL (6.3-8.2)
--- NOTE | 2018-07-27 20:37 | CT ---
EXAMINATION TYPE: CT abdomen pelvis w con DATE OF EXAM: 07/27/2018 COMPARISON: 07/10/2018 HISTORY: LLQ pain, painful urination. Hx renal stones CT DLP: 667 mGycm Automated exposure control for dose reduction was used. TECHNIQUE: Helical acquisition of images was performed from the lung bases through the pelvis. CONTRAST: Performed without Oral Contrast and with IV Contrast, patient injected with 100 mL of Isovue 300. FINDINGS: Lung bases are clear. There is no pleural effusion. Heart appears normal. There are clips from cholecystectomy. Liver spleen stomach pancreas appear normal. The bile ducts are not dilated. There is no adrenal mass. Kidneys show satisfactory contrast opacification. There is no hydronephrosi s. Ureters are not dilated. There is no retroperitoneal adenopathy. Bladder distends smoothly. There is no inguinal hernia. There is a 2 cm cyst on the left ovary. There is hysterectomy. There is no amadeo e fluid in the pelvis. I see no evidence of pelvic adenopathy. Appendix is not definitely seen. There is no sign of a thickened appendix. There is no evidence of a bowel obstruction. I see no intestinal wall thickening. There is no free ai r. There is no ascites. IMPRESSION: NEGATIVE CT SCAN ABDOMEN AND PELVIS. I DO NOT SEE A CAUSE FOR ABDOMINAL PAIN. THERE IS CLEARING OF TH E DISTENDED LOOPS OF SMALL BOWEL WITH FLUID COMPARED TO OLD EXAM. No renal stone or obstruction.
[2018-07-27 21:57] VITALS: BP 128/79; PULSE 78; RESP 16; TEMP 99
== END 2018-07-27 21:55 | disposition home or self-care (01) ==
LOC: EC 15:57
DX: B34.9 Viral infection, unspecified (principal); Z90.710 Acquired absence of both cervix and uterus; Z90.89 Acquired absence of other organs; Z90.49 Acquired absence of other specified parts of digestive tract; Z88.8 Allergy status to other drugs, medicaments and biological substances
CPT/HCPCS: 36415; 80053; 83605; 85025; 81001; 81025; 87808; 87491; 87591; 87086; 87081; 87430; 87502; 74177; 99284; 96360; Q9967

== ENCOUNTER → 2018-09-18 | Outpatient (CLI) | payer OTHER ==
[2018-09-18 15:54] LABS: African American GFR (CKD) 138.8 (60.0-200.0); Albumin 4.9 g/dL (3.80-4.90); Albumin/Globulin Ratio 2.23 (1.60-3.17); Anion Gap 9.3 mmol/L (4.00-12.00); BUN/Creat Ratio 16.67 Ratio (12.00-20.00); Calcium 9.6 mg/dL (8.7-10.3); Carbon Dioxide 23.7 mmol/L (21.6-31.8); Globulin 2.2 g/dL (1.6-3.3); Potassium 4.2 mmol/L (3.5-5.5); Total Bilirubin 0.5 mg/dL (0.2-1.2); Total Protein 7.1 g/dL (6.2-8.2)
== END | disposition home or self-care (01) ==
LOC: LABWHC1 09:17
PROVIDERS: ATTEND Internal Medicine
DX: R10.9 Unspecified abdominal pain (principal)
CPT/HCPCS: 36415; 80053

== ENCOUNTER 2018-09-21 06:38 | Day surgery (SDC) | payer OTHER ==
[2018-09-20 11:32] VITALS: BMI 26.4
[~2018-09-21 06:38] MED LIST: LACTATED RINGERS 1,000 ML IV SCH; LIDOCAINE 1% 20 ML VIAL (10MG/ML) FOR IV START INTRADERMA PRN
[2018-09-21 07:27] VITALS: TEMP 98.6
[2018-09-21] MEDS ORDERED: MIDAZOLAM (PF) 2 MG/2 ML VIAL IV ONE (07:53)
[2018-09-21] MEDS ORDERED: PROPOFOL 10 MG/ML 20 ML VIAL IV ONE (08:12)
[2018-09-21] MEDS ORDERED: LIDOCAINE 1% INJ 10MG/ML (20 ML MDV) ONE (08:12)
[2018-09-21] MEDS ORDERED: fentaNYL (PF) 50 MCG/ML 2 ML AMP ONE (08:12)
[2018-09-21] MEDS ORDERED: ONDANSETRON 4 MG/2 ML VIAL IVP ONE (08:40)
--- NOTE | 2018-09-21 08:41 | P.PCN ---
Date of Procedure: 09/21/18 Description of Procedure: Brief history: Patient is a bronwyn scheduled for an elective upper endoscopy as well as colonoscopy as a part of evaluation of abdominal pain, nausea and vomiting. The patient does report episodes of abdominal pain predominantly in the left side of her abdomen. The pain is severe with some improvement with Bentyl therapy. No associated diarrhea, hematemesis, hematochezia or melena. Computed tomography scan of the abdomen and pelvis was negative for bowel obstruction and enteritis however. Previous CT scans have suggested colitis. Colonoscopy in 2014 performed by for evaluation of rectal bleeding and colitis reported no evidence of diverticulosis or colon rectal neoplasia no random biopsies taken. Bowel movements are daily, once or twice within no blood or black bowel movements reported. No family history of inflammatory bowel disease, bronwyn patient does have a history of colon cancer in her mother and maternal grandfather. She denies any GERD, dysphagia or odynophagia. She does however report nausea and vomiting in the morning to approximately 3-4 times per week. Procedure performed: Esophagogastroduodenoscopy with biopsy Incomplete/aborted Colonoscopy due to poor prep Estimated blood loss: Minimal. Preoperative diagnosis: Nausea and vomiting, Abdominal pain, family history of colon cancer, reported history of colitis Anesthesia: MAC Procedure: After informed consent was obtained from the patient was brought into the endoscopy unit and IV sedation was administered by anesthesia under continuous monitoring. Initially upper endoscopy was done. The Olympus GF 190 video endoscope was inserted inserted into the mouth and esophagus intubated without any difficulty and was gradually advanced into the stomach and duodenum and carefully examined. The bulb and second part of the duodenum appeared normal with biopsies taken. The scope was then withdrawn into the stomach adequately insufflated with air and upon careful examination the antrum and body, cardia and fundus appeared normal except for some mild scattered erythema in the antrum and body suggestive of mild gastritis with biopsies taken. The scope was then withdrawn into the esophagus. The GE junction was located at 40 cm to the incisors. It appeared regular with no erythema erosions or ulcerations. Rest of the esophagus appeared normal. Patient tolerated the procedure well. At this time the patient continued to remain sedation. Initial digital rectal examination was normal. Olympus CF 160 video colonoscope was then inserted into the rectum and gradually advanced, however there was a large amount of stool prohibiting visualization of the mucosa and increasing risk of complications and the procedure was therefore aborted. Patient tolerated the procedure well. Impression: 1. Mild gastritis antrum and body, biopsied. 2. Incomplete/aborted colonoscopy due to solid stool and poor prep. Recommendations: Findings of this examination were discussed with the patient as well as her family. Okay to resume diet. Continue Zantac at night. Continue peppermint oil for abdominal pain. Follow-up with gastroenterology as previously scheduled.
[2018-09-21 09:17] VITALS: BP 111/58; PULSE 83; RESP 16
== END 2018-09-21 09:22 | disposition home or self-care (01) ==
LOC: ORWHC2ENDO 06:38
PROVIDERS: ATTEND Internal Medicine
DX: K29.50 Unspecified chronic gastritis without bleeding (principal); B96.81 Helicobacter pylori [H. pylori] as the cause of diseases classified elsewhere; Z90.49 Acquired absence of other specified parts of digestive tract; Z90.710 Acquired absence of both cervix and uterus; Z98.51 Tubal ligation status; Z79.899 Other long term (current) drug therapy; Z88.8 Allergy status to other drugs, medicaments and biological substances; Z80.0 Family history of malignant neoplasm of digestive organs; K52.9 Noninfective gastroenteritis and colitis, unspecified; Z53.8 Procedure and treatment not carried out for other reasons
CPT/HCPCS: 88305; 88342; 45378; 43239; J2405; J2001; J3010; J2704; J2250; 45330

== ENCOUNTER 2018-10-10 07:01 | Day surgery (SDC) | payer OTHER ==
[2018-10-05 14:48] VITALS: BMI 26.2
[~2018-10-10 07:01] MED LIST changes: -LIDOCAINE 1% 20 ML VIAL (10MG/ML) FOR IV START INTRADERMA PRN
[2018-10-10 07:39] VITALS: TEMP 97.8
[2018-10-10] MEDS ORDERED: LACTATED RINGERS 1,000 ML IV ONE (07:39)
[2018-10-10] MEDS ORDERED: LIDOCAINE 1% 20 ML VIAL (10MG/ML) FOR IV START INTRADERMA ONE (07:40)
[2018-10-10] MEDS ORDERED: PROPOFOL 10 MG/ML 20 ML VIAL IV ONE (08:08)
[2018-10-10] MEDS ORDERED: LIDOCAINE 1% INJ 10MG/ML (20 ML MDV) ONE (08:08)
--- NOTE | 2018-10-10 08:52 | P.PCN ---
Date of Procedure: 10/10/18 Description of Procedure: BRIEF HISTORY: Patient is a pleasant scheduled for a colonoscopy as a part of evaluation of family history of colon cancer. Previous CT scans have suggested colitis. Colonoscopy in 2014 for evaluation of rectal bleeding and colitis reported no evidence of diverticulosis or colon rectal neoplasia no random biopsies taken. Bowel movements are daily, once or twice within no blood or black bowel movements reported. No family history of inflammatory bowel disease, patient does have a history of colon cancer in her mother and maternal grandfather. She denies any GERD, dysphagia or odynophagia. She does however report nausea and vomiting in the morning to approximately 3-4 times per week. PROCEDURE PERFORMED: Colonoscopy with biopsy. PREOPERATIVE DIAGNOSIS: Family history of colon cancer (mother and maternal grandfather), abnormal CT imaging of the abdomen. ESTIMATED BLOOD LOSS: Minimal. IV sedation per Anesthesia. PROCEDURE: After informed consent was obtained, the patient, was brought into the endoscopy unit. IV sedation was administered by Anesthesia under continuous monitoring. Digital rectal examination was normal. Initially the Olympus CF-190 flexible video colonoscope was then inserted in the rectum, gradually advanced into the cecum without any difficulty. The terminal ileum was intubated and appeared normal with biopsies taken. Careful examination was performed as the scope was gradually being withdrawn. Ileocecal valve and the appendiceal orifice were visualized and appeared normal. Prep was good. Mucosa of the cecum, ascending colon, transverse colon, descending colon, sigmoid colon, and rectum appeared normal. Random biopsies were taken of the terminal ileum, right colon and left colon. Mild internal hemorrhoids. Retroflexion was performed in the rectum and no lesions were seen. The patient tolerated the procedure well. IMPRESSION: Normal-appearing colon from rectum to cecum and normal appearing terminal ileum, with random biopsies taken of the terminal ileum, right colon and left colon . Mild internal hemorrhoids. RECOMMENDATIONS: Findings of this examination were discussed with the patient and her mother. Okay to resume diet. Await pathology from biopsies. Repeat colonoscopy in 5 y ears given family history of colon cancer.
[2018-10-10 08:53] VITALS: RESP 16
[2018-10-10 09:08] VITALS: BP 94/59; PULSE 79
== END 2018-10-10 09:31 | disposition home or self-care (01) ==
LOC: ORWHC2ENDO 07:01
PROVIDERS: ATTEND Internal Medicine
DX: Z12.11 Encounter for screening for malignant neoplasm of colon (principal); Z80.0 Family history of malignant neoplasm of digestive organs; K64.8 Other hemorrhoids; N12 Tubulo-interstitial nephritis, not specified as acute or chronic; Z79.899 Other long term (current) drug therapy; Z88.8 Allergy status to other drugs, medicaments and biological substances; Z90.710 Acquired absence of both cervix and uterus; Z90.49 Acquired absence of other specified parts of digestive tract; Z98.51 Tubal ligation status
CPT/HCPCS: 45380; 88305; J2001; J2704

== ENCOUNTER 2018-11-09 20:50 | Emergency (ER) | payer OTHER ==
[2018-11-09 21:03] VITALS: RESP 18
[2018-11-09] MEDS ORDERED: SODIUM CHLORIDE 0.9% 1,000 ML IV STA ×2 (21:31)
[2018-11-09] MEDS ORDERED: ONDANSETRON 4 MG/2 ML VIAL IVP STA (21:51)
[2018-11-09] MEDS ORDERED: KETOROLAC 30 MG/ML 1 ML VIAL IVP STA (21:51)
[2018-11-09] MEDS ORDERED: FAMOTIDINE 20 MG/2 ML VIAL IV STA (21:51)
[2018-11-09] MEDS ORDERED: MORPHINE SULFATE 4 MG/ML SYRINGE IVP STA (21:51)
[2018-11-09 21:58] LABS: Appearance,Urine Clear (Clear); Bilirubin,Urine Negative (Negative); Blood,Urine Moderate (Negative); Color,Urine Yellow; Glucose,Urine (UA) Negative (Negative); Ketones,Urine Negative (Negative); Leukocyte Esterase,Urine Negative (Negative); Mucus,Urine Few /hpf; Nitrite,Urine Negative (Negative); Protein,Urine Negative (Negative); RBC,Urine 8 /hpf (0-5); Specific Gravity,Urine 1.025 (1.001-1.035); Squamous Epithelial Cell,Urine 2 /hpf (0-4); Urobilinogen,Urine <2.0 mg/dL (<2.0)
[2018-11-09 22:06] LABS: ALT 20 U/L (9-52); AST 21 U/L (14-36); African American GFR (CKD) >90 (>60 ml/min/1.73 sqM); Albumin 4.7 g/dL (3.5-5.0); Alkaline Phosphatase 71 U/L (38-126); Amylase 90 U/L (30-110); Anion Gap 9 mmol/L; Blood Urea Nitrogen 12 mg/dL (7-17); Calcium 9.3 mg/dL (8.4-10.2); Carbon Dioxide 25 mmol/L (22-30); Chloride 104 mmol/L (98-107); Glucose 90 mg/dL (74-99); Potassium 4.3 mmol/L (3.5-5.1); Sodium 138 mmol/L (137-145); Total Bilirubin 0.2 mg/dL (0.2-1.3); Total Protein 7.9 g/dL (6.3-8.2)
[2018-11-09 22:13] LABS: Basophils # (A) 0.1 k/uL (0-0.2); Basophils % (A) 1 %; Eosinophils # (A) 0.3 k/uL (0-0.7); Eosinophils % (A) 3 %; HCT 42.2 % (34.0-46.0); HGB 13.9 gm/dL (11.4-16.0); Lymphocytes # (A) 2.6 k/uL (1.0-4.8); Lymphocytes % (A) 29 %; MCH 31.2 pg (25.0-35.0); MCHC 32.9 g/dL (31.0-37.0); MCV 94.7 fL (80.0-100.0); Mean Platelet Volume 6.2; Monocytes # (A) 0.6 k/uL (0-1.0); Monocytes % (A) 7 %; Neutrophils # (A) 5.3 k/uL (1.3-7.7); Neutrophils % (A) 58 %; Platelet Count 349 k/uL (150-450); RBC 4.46 m/uL (3.80-5.40); WBC 9.1 k/uL (3.8-10.6)
--- NOTE | 2018-11-09 23:13 | ED ---
Nausea/Vomiting/Diarrhea HPI - General Chief complaint: Nausea/Vomiting/Diarrhea Stated complaint: vomiting Time Seen by Provider: 11/09/18 21:11 Source: patient, RN notes reviewed, old records reviewed Mode of arrival: ambulatory Limitations: no limitations - History of Present Illness Initial comments: 33 year old female, well known to ED for abdominal pain. She presents with diffuse abdominal pain, and anxious from results of GI biopsy. She was told she had infection, but didnt understand how she could be living with infection for so long, and just now be treated with abx. She received abx treatment today from Dr. Ding. She also complains of dysuria. She denies fevers or chills. She reports chronic upper abdominal pain. She reports episode of coffee ground emesis. Description of Vomiting: coffee grounds - Related Data Home Medications Medication Instructions Recorded Confirmed Amoxicillin 1,000 mg PO BID 11/09/18 11/09/18 Clarithromycin [Biaxin] 500 mg PO Q12HR 11/09/18 11/09/18 Ranitidine HCl 150 mg PO BID 11/09/18 11/09/18 Previous Rx's Medication Instructions Recorded Ondansetron Odt [Zofran Odt] 4 mg PO Q8HR PRN #20 tab 11/09/18 Allergies Allergy/AdvReac Type Severity Reaction Status Date / Time metoclopramide [From Reglan] AdvReac Mild Rapid Verified 11/09/18 23:29 Heart Rate prochlorperazine maleate AdvReac Rapid Verified 11/09/18 23:29 [From Compazine] Heart Rate Review of Systems ROS Statement: Those systems with pertinent positive or pertinent negative responses have been documented in the HPI. ROS Other: All systems not noted in ROS Statement are negative. Past Medical History Past Medical History: No Reported History Additional Past Medical History / Comment(s): COLITIS, uti's, kidney infections, interstitial cystitis, kidney stones, RECTAL BLEEDING History of Any Multi-Drug Resistant Organisms: None Reported Past Surgical History: Appendectomy, Cholecystectomy, Hysterectomy, Tubal Ligation Additional Past Surgical History / Comment(s): novasure ENDOMETRIAL ABLATION, COLONOSCOPY Past Anesthesia/Blood Transfusion Reactions: No Reported Reaction Past Psychological History: No Psychological Hx Reported Smoking Status: Never smoker Past Alcohol Use History: None Reported Past Drug Use History: None Reported - Past Family History Father Family Medical History: No Reported History Mother Family Medical History: Cancer Additional Family Medical History / Comment(s): COLON CANCER General Exam - General Exam Comments Initial Comments: Well appearing 33 year old female, no distress. Limitations: no limitations General appearance: alert, in no apparent distress Head exam: Present: atraumatic, normocephalic, normal inspection Eye exam: Present: normal appearance, PERRL, EOMI. Absent: scleral icterus, conjunctival injection, periorbital swelling ENT exam: Present: normal exam, mucous membranes moist Neck exam: Present: normal inspection. Absent: tenderness, meningismus, lymphad enopathy Respiratory exam: Present: normal lung sounds bilaterally. Absent: respiratory distress, wheezes, rales, rhonchi, stridor Cardiovascular Exam: Present: regular rate, normal rhythm, normal heart sounds. Absent: systolic murmur, diastolic murmur, rubs, gallop, clicks GI/Abdominal exam: Present: soft, tenderness (epigastric ), normal bowel sounds. Absent: distended, guarding, rebound, rigid Extremities exam: Present: normal inspection, full ROM, normal capillary refill. Absent: tenderness, pedal edema, joint swelling, calf tenderness Back exam: Present: normal inspection Neurological exam: Present: alert, oriented X3, CN II-XII intact Psychiatric exam: Present: normal affect, normal mood Skin exam: Present: warm, dry, intact, normal color. Absent: rash Course Vital Signs 11/09/18 11/09/18 21:00 23:55 Temperature 98.7 F 97.9 F Pulse Rate 69 81 Respiratory 18 18 Rate Blood Pressure 135/87 106/71 O2 Sat by Pulse 96 99 Oximetry Medical Decision Making - Medical Decision Making 33 yo female, abdominal pain. Labs and previous visits show she is now being tr eated for H.Pylori. Discussed with patient that it causes ulcers and can be related to her chronic abdominal pain. Discussed to finish treatment. She also complained of dysuria. Discussed minimal RBC. No infection. Discussed she has no flank pain or discription of kidney stone likely pain today. She feels better after nausea medication. She reprots new abx make her nauseated. Will DC with Rx for zofran, discussed treatment to complete for H.Pylori is important. - Lab Data Result diagrams: 11/09/18 21:42 08/29/19 21:42 Lab Results 11/09/18 11/09/18 11/09/18 Range/Units 21:42 21:42 21:42 WBC 9.1 (3.8-10.6) k/uL RBC 4.46 (3.80-5.40) m/uL Hgb 13.9 (11.4-16.0) gm/dL Hct 42.2 (34.0-46.0) % MCV 94.7 (80.0-100.0) fL MCH 31.2 (25.0-35.0) pg MCHC 32.9 (31.0-37.0) g/dL RDW 12.0 (11.5-15.5) % Plt Count 349 (150-450) k/uL Neutrophils % 58 % Lymphocytes % 29 % Monocytes % 7 % Eosinophils % 3 % Basophils % 1 % Neutrophils # 5.3 (1.3-7.7) k/uL Lymphocytes # 2.6 (1.0-4.8) k/uL Monocytes # 0.6 (0-1.0) k/uL Eosinophils # 0.3 (0-0.7) k/uL Basophils # 0.1 (0-0.2) k/uL Sodium 138 (137-145) mmol/L Potassium 4.3 (3.5-5.1) mmol/L Chloride 104 (98-107) mmol/L Carbon Dioxide 25 (22-30) mmol/L Anion Gap 9 mmol/L BUN 12 (7-17) mg/dL Creatinine 0.65 (0.52-1.04) mg/dL Est GFR (CKD-EPI)AfAm >90 (>60 ml/min/1.73 sqM) Est GFR (CKD-EPI)NonAf >90 (>60 ml/min/1.73 sqM) Glucose 90 (74-99) mg/dL Calcium 9.3 (8.4-10.2) mg/dL Total Bilirubin 0.2 (0.2-1.3) mg/dL AST 21 (14-36) U/L ALT 20 (9-52) U/L Alkaline Phosphatase 71 (38-126) U/L Total Protein 7.9 (6.3-8.2) g/dL Albumin 4.7 (3.5-5.0) g/dL Amylase 90 (30-110) U/L Lipase 109 (23-300) U/L Urine Color Yellow Urine Appearance Clear (Clear) Urine pH 6.0 (5.0-8.0) Ur Specific [place] 1.025 (1.001-1.035) Urine Protein Negative (Negative) Urine Glucose (UA) Negative (Negative) Urine Ketones Negative (Negative) Urine Blood Moderate H (Negative) Urine Nitrite Negative (Negative) Urine Bilirubin Negative (Negative) Urine Urobilinogen <2.0 (<2.0) mg/dL Ur Leukocyte Esterase Negative (Negative) Urine RBC 8 H (0-5) /hpf Urine WBC <1 (0-5) /hpf Ur Squamous Epith Cells 2 (0-4) /hpf Urine Mucus Few H (None) /hpf Disposition Clinical Impression: Abdominal pain, H. pylori infection Clinical Impression: (Ruled Out): Pyloric stenosis Disposition: HOME SELF-CARE Condition: Good Instructions (If sedation given, give patient instructions): Abdominal Pain (E D) Additional Instructions: Take antibiotics as prescribed. He is the nausea medicine as discussed prior to antibiotics. Anterior having plenty of yogurt and probiotic foods in her diet. Return to the emergency department if any alarming signs or symptoms occur. Prescriptions: Ondansetron Odt [Zofran Odt] 4 mg PO Q8HR PRN #20 tab PRN Reason: Nausea Is patient prescribed a controlled substance at d/c from ED?: No Referrals: Mara Jack MD [Primary Care Provider] - 1-2 days Time of Disposition: 23:58
[2018-11-09 23:57] VITALS: BP 106/71; PULSE 81; TEMP 97.9
[2018-11-09] MEDS ORDERED: ONDANSETRON 4 MG ODT STARTER PACK 2 TAB BTL PO STA (23:57)
== END 2018-11-10 00:12 | disposition home or self-care (01) ==
LOC: EC 20:50
DX: B96.81 Helicobacter pylori [H. pylori] as the cause of diseases classified elsewhere (principal); R30.0 Dysuria; Z79.899 Other long term (current) drug therapy; Z88.8 Allergy status to other drugs, medicaments and biological substances; Z87.442 Personal history of urinary calculi; Z87.19 Personal history of other diseases of the digestive system; Z87.440 Personal history of urinary (tract) infections; Z98.51 Tubal ligation status
CPT/HCPCS: 99284; 96374; 96375 ×3; 96361 ×2; 36415; 80053; 82150; 83690; 85025; 81001; J2270; J2405; J1885; S0119

== ENCOUNTER 2018-12-14 22:22 | Emergency (ER) | payer OTHER ==
[2018-12-14 22:29] VITALS: TEMP 98.9
--- NOTE | 2018-12-14 22:36 | ED ---
General Adult HPI - General Chief complaint: Abdominal Pain Stated complaint: Vomiting, R side pain Time Seen by Provider: 12/14/18 22:32 Source: patient Mode of arrival: ambulatory Limitations: no limitations - History of Present Illness Initial comments: Gabriella is a pleasant 33-year-old female presents the ER today for evaluation of right-sided flank pain nausea vomiting and dysuria. Patient reports she has a history of urinary tract infections and Isael in the past. She states yesterday she began having dysuria, flank pain and today developed nausea and vomiting. She reports she's been unable to tolerate any by mouth intake. She does subjective fever she took one 200 mg Advil. She reports she is concerned she may be becoming dehydrated and likely needed antibiotics so she came to the ER for further evaluation. Location: right (Complaint) - Related Data Home Medications Medication Instructions Recorded Confirmed Ibuprofen [Advil] 200 mg PO Q8HR PRN 12/14/18 12/14/18 Allergies Allergy/AdvReac Type Severity Reaction Status Date / Time metoclopramide [From Reglan] AdvReac Mild Rapid Verified 12/14/18 22:36 Heart Rate prochlorperazine maleate AdvReac Rapid Verified 12/14/18 22:36 [From Compazine] Heart Rate Review of Systems ROS Statement: Those systems with pertinent positive or pertinent negative responses have been documented in the HPI. ROS Other: All systems not noted in ROS Statement are negative. Constitutional: Reports: fever, chills Past Medical History Past Medical History: No Reported History Additional Past Medical History / Comment(s): COLITIS, uti's, kidney infections, interstitial cystitis, kidney stones, RECTAL BLEEDING History of Any Multi-Drug Resistant Organisms: None Reported Past Surgical History: Appendectomy, Cholecystectomy, Hysterectomy, Tubal Ligation Additional Past Surgical History / Comment(s): novasure ENDOMETRIAL ABLATION, COLONOSCOPY Past Anesthesia/Blood Transfusion Reactions: No Reported Reaction Past Psychological History: No Psychological Hx Reported Smoking Status: Never smoker Past Alcohol Use History: None Reported Past Drug Use History: None Reported - Past Family History Father Family Medical History: No Reported History Mother Family Medical History: Cancer Additional Family Medical History / Comment(s): COLON CANCER General Exam - General Exam Comments Initial Comments: Physical Exam GENERAL: Patient is well-developed and well-nourished. Appears dehydrated, uncomfortable HENT: Normocephalic, Atraumatic. Dry mucous membranes EYES: PERRL, EOMI PULMONARY: Unlabored respirations. No audible rales rhonchi or wheezing was noted. CARDIOVASCULAR: Tachycardic regular Warm and well perfused extremities ABDOMEN: Soft and nontender with normal bowel sounds. Tenderness to percussion of right flank SKIN: Skin is clear with no lesions or rashes and otherwise unremarkable. : Deferred NEUROLOGIC: Patient is alert and oriented x3. Moving all extremities spontaneously MUSCULOSKELETAL: Normal extremities with adequate strength and full range of motion. No lower extremity swelling or edema. No calf tenderness. PSYCHIATRIC: Normal psychiatric evaluation. Limitations: no limitations Course Vital Signs 12/14/18 12/14/18 12/15/18 22:27 23:59 04:02 Temperature 98.9 F Pulse Rate 122 H 100 88 Respiratory 20 18 18 Rate Blood Pressure 156/85 124/72 125/75 O2 Sat by Pulse 98 99 98 Oximetry Medical Decision Making - Medical Decision Making She was seen and evaluated patient was febrile tachycardic with right-sided flank pain and a history of UTI and Isael a sinus sepsis workup was initiated Urinalysis with no signs of urinary tract infection, she had mild elevation of liver enzymes, computed tomography scan was ordered with no acute findings she has fatty liver disease she is status post cholecystectomy there is no dilation of the ducts. Patient with persistent right upper flank pain and tachycardia after fluids and antipyretics. At this time I cannot rule out a possible right lower lobe pulmonary embolism therefore a computed tomography scan was ordered She does state the pain resolves with morphine and a repeat dose was given Computed tomography scan with no acute findings Results were discussed with the patient, patient is afebrile heart rate has improved she is resting more comfortably. Patient somewhat relieved that we haven't found any acute infectious process or bony embolism however there is no expiration for pain. I did have a long discussion with the patient the possibility of this being herpetic neuralgia in the possibility of developing shingles I did advised patient that if she develops any rashing needs to return to the emergency department immediately for prescription antiviral medication. All questions pertaining care were answered best my ability return parameters were discussed the patient was discharged home in stable condition. - Lab Data Result diagrams: 12/14/18 23:09 12/14/18 23:09 Lab Results 12/14/18 12/14/18 12/14/18 Range/Units 23:09 23:09 23:09 WBC 8.1 (3.8-10.6) k/uL RBC 4.11 (3.80-5.40) m/uL Hgb 12.8 (11.4-16.0) gm/dL Hct 38.9 (34.0-46.0) % MCV 94.5 (80.0-100.0) fL MCH 31.2 (25.0-35.0) pg MCHC 33.0 (31.0-37.0) g/dL RDW 11.7 (11.5-15.5) % Plt Count 378 (150-450) k/uL Neutrophils % 55 % Lymphocytes % 35 % Monocytes % 5 % Eosinophils % 3 % Basophils % 0 % Neutrophils # 4.4 (1.3-7.7) k/uL Lymphocytes # 2.8 (1.0-4.8) k/uL Monocytes # 0.4 (0-1.0) k/uL Eosinophils # 0.2 (0-0.7) k/uL Basophils # 0.0 (0-0.2) k/uL Sodium 141 (137-145) mmol/L Potassium 3.4 L (3.5-5.1) mmol/L Chloride 104 (98-107) mmol/L Carbon Dioxide 24 (22-30) mmol/L Anion Gap 13 mmol/L BUN 11 (7-17) mg/dL Creatinine 0.70 (0.52-1.04) mg/dL Est GFR (CKD-EPI)AfAm >90 (>60 ml/min/1.73 sqM) Est GFR (CKD-EPI)NonAf >90 (>60 ml/min/1.73 sqM) Glucose 108 H (74-99) mg/dL Plasma Lactic Acid Kevin 0.7 (0.7-2.0) mmol/L Calcium 9.9 (8.4-10.2) mg/dL Total Bilirubin 0.4 (0.2-1.3) mg/dL AST 37 H (14-36) U/L ALT 84 H (9-52) U/L Alkaline Phosphatase 82 (38-126) U/L Total Protein 8.1 (6.3-8.2) g/dL Albumin 4.9 (3.5-5.0) g/dL Urine Color Urine Appearance (Clear) Urine pH (5.0-8.0) Ur Specific [place] (1.001-1.035) Urine Protein (Negative) Urine Glucose (UA) (Negative) Urine Ketones (Negative) Urine Blood (Negative) Urine Nitrite (Negative) Urine Bilirubin (Negative) Urine Urobilinogen (<2.0) mg/dL Ur Leukocyte Esterase (Negative) Urine RBC (0-5) /hpf Urine WBC (0-5) /hpf Ur Squamous Epith Cells (0-4) /hpf Urine Bacteria (None) /hpf Urine Mucus (None) /hpf Urine HCG, Qual (Not Detectd) 12/14/18 12/14/18 Range/Units 23:09 23:09 WBC (3.8-10.6) k/uL RBC (3.80-5.40) m/uL Hgb (11.4-16.0) gm/dL Hct (34.0-46.0) % MCV (80.0-100.0) fL MCH (25.0-35.0) pg MCHC (31.0-37.0) g/dL RDW (11.5-15.5) % Plt Count (150-450) k/uL Neutrophils % % Lymphocytes % % Monocytes % % Eosinophils % % Basophils % % Neutrophils # (1.3-7.7) k/uL Lymphocytes # (1.0-4.8) k/uL Monocytes # (0-1.0) k/uL Eosinophils # (0-0.7) k/uL Basophils # (0-0.2) k/uL Sodium (137-145) mmol/L Potassium (3.5-5.1) mmol/L Chloride (98-107) mmol/L Carbon Dioxide (22-30) mmol/L Anion Gap mmol/L BUN (7-17) mg/dL Creatinine (0.52-1.04) mg/dL Est GFR (CKD-EPI)AfAm (>60 ml/min/1.73 sqM) Est GFR (CKD-EPI)NonAf (>60 ml/min/1.73 sqM) Glucose (74-99) mg/dL Plasma Lactic Acid Kevin (0.7-2.0) mmol/L Calcium (8.4-10.2) mg/dL Total Bilirubin (0.2-1.3) mg/dL AST (14-36) U/L ALT (9-52) U/L Alkaline Phosphatase (38-126) U/L Total Protein (6.3-8.2) g/dL Albumin (3.5-5.0) g/dL Urine Color Yellow Urine Appearance Cloudy H (Clear) Urine pH 6.0 (5.0-8.0) Ur Specific [place] 1.025 (1.001-1.035) Urine Protein Trace H (Negative) Urine Glucose (UA) Negative (Negative) Urine Ketones 2+ H (Negative) Urine Blood Moderate H (Negative) Urine Nitrite Negative (Negative) Urine Bilirubin Negative (Negative) Urine Urobilinogen 2.0 (<2.0) mg/dL Ur Leukocyte Esterase Small H (Negative) Urine RBC 10 H (0-5) /hpf Urine WBC 5 (0-5) /hpf Ur Squamous Epith Cells 29 H (0-4) /hpf Urine Bacteria Occasional H (None) /hpf Urine Mucus Moderate H (None) /hpf Urine HCG, Qual Not Detected (Not Detectd) Disposition Clinical Impression: Right flank pain Disposition: HOME SELF-CARE Condition: Stable Instructions (If sedation given, give patient instructions): Abdominal Pain (ED) Is patient prescribed a controlled substance at d/c from ED?: No Referrals: Mara Jack MD [Primary Care Provider] - 1-2 days
[2018-12-14] MEDS: SODIUM CHLORIDE 0.9% 500 ML 500 ML IV SCH (23:10)
[2018-12-14 23:39] LABS: Basophils % (A) 0 %; Eosinophils # (A) 0.2 k/uL (0-0.7); Eosinophils % (A) 3 %; HCT 38.9 % (34.0-46.0); HGB 12.8 gm/dL (11.4-16.0); Lymphocytes # (A) 2.8 k/uL (1.0-4.8); Lymphocytes % (A) 35 %; MCH 31.2 pg (25.0-35.0); MCV 94.5 fL (80.0-100.0); Mean Platelet Volume 6.3; Monocytes # (A) 0.4 k/uL (0-1.0); Monocytes % (A) 5 %; Neutrophils # (A) 4.4 k/uL (1.3-7.7); Neutrophils % (A) 55 %; Platelet Count 378 k/uL (150-450); RBC 4.11 m/uL (3.80-5.40); RDW 11.7 % (11.5-15.5); WBC 8.1 k/uL (3.8-10.6)
[2018-12-14 23:50] LABS: Appearance,Urine Cloudy (Clear); Bilirubin,Urine Negative (Negative); Blood,Urine Moderate (Negative); Color,Urine Yellow; Glucose,Urine (UA) Negative (Negative); Ketones,Urine 2+ (Negative); Leukocyte Esterase,Urine Small (Negative); Nitrite,Urine Negative (Negative); Protein,Urine Trace (Negative); Specific Gravity,Urine 1.025 (1.001-1.035)
[2018-12-14 23:51] LABS: ALT 84 U/L (9-52); AST 37 U/L (14-36); African American GFR (CKD) >90 (>60 ml/min/1.73 sqM); Albumin 4.9 g/dL (3.5-5.0); Alkaline Phosphatase 82 U/L (38-126); Anion Gap 13 mmol/L; Bacteria,Urine Occasional /hpf; Blood Urea Nitrogen 11 mg/dL (7-17); Calcium 9.9 mg/dL (8.4-10.2); Carbon Dioxide 24 mmol/L (22-30); Chloride 104 mmol/L (98-107); Glucose 108 mg/dL (74-99); Mucus,Urine Moderate /hpf; Potassium 3.4 mmol/L (3.5-5.1); RBC,Urine 10 /hpf (0-5); Sodium 141 mmol/L (137-145); Squamous Epithelial Cell,Urine 29 /hpf (0-4); Total Bilirubin 0.4 mg/dL (0.2-1.3); Total Protein 8.1 g/dL (6.3-8.2)
[2018-12-15 00:01] VITALS: RESP 18
[2018-12-15] MEDS ORDERED: MORPHINE SULFATE 4 MG/ML SYRINGE IVP STA ×2 (00:09→03:00)
[2018-12-15] MEDS ORDERED: cefTRIAXone IN SWFI 1,000 MG/10 ML SYRINGE IVP STA (00:09)
--- NOTE | 2018-12-15 00:53 | CT ---
EXAM: CT Abdomen and Pelvis With Intravenous Contrast CLINICAL HISTORY: Abdominal pain. TECHNIQUE: Axial computed tomography images of the abdomen and pelvis with intravenous contrast. CTDI is 11.1 mGy and DLP is 599 mGy-cm. This CT exam was performed using one or more of the following dose reduction techniques: automated exposure control, adjustment of the mA and/or kV according to patient size, and/or use of iterative reconstruction technique. COMPARISON: 07/27/2018 and 07/10/2018. FINDINGS: Lung bases: Unremarkable. No mass. No consolidation. Pleural space: No pleural effusions. Heart: The heart is normal in size. ABDOMEN: Liver: Mild fatty infiltration of the liver. Gallbladder and bile ducts: Status post cholecystectomy. No ductal dilation. Pancreas: Unremarkable. No mass. No ductal dilation. Spleen: Unremarkable. No splenomegaly. Adrenals: Unremarkable. No mass. Kidneys and ureters: No renal calculus or hydronephrosis. No significant stranding about the perinephric spaces bilaterally. Stomach and bowel: Moderate quantity of stool throughout the colon. Mild diverticulosis without radiographic evidence of diverticulitis. No obstruction. PELVIS: Appendix: The appendix is best seen on series 202 image 35 and is unremarkable. Bladder: Unremarkable. No mass. Reproductive: The patient is status post hysterectomy. ABDOMEN and PELVIS: Intraperitoneal space: Pelvic fluid limits. No free air. Bones/joints: Visualized ribs are unremarkable. Mild degenerative disc disease of the spinal column is noted. Bony pelvis is unremarkable. The thoracic and lumbar vertebral bodies which are visualized are maintained in height. Minimal vacuum disc L5-S1. Sacrum and coccyx are unremarkable. No acute fracture. No dislocation. Soft tissues: Unremarkable. Vasculature: Unremarkable. No abdominal aortic aneurysm. Lymph nodes: Unremarkable. No enlarged lymph nodes. Other findings: Normal alignment. No evidence of obstruction. IMPRESSION: No active inflammatory process. No hydronephrosis. Status post cholecystectomy. No evidence of obstruction. Mild fatty infiltration of the liver. <MYCVCSECTION> Critical Value Communications 12/15/18 03:16 Call From [facility] tech Julien 12/15/18 03:17 Call From [facility] Plan A Drink [facility] [place] to Dr. Casillas (maintenance service technician [place])
[2018-12-15] MEDS ORDERED: SODIUM CHLORIDE 0.9% 1,000 ML IV ONE (03:00)
--- NOTE | 2018-12-15 04:01 | CT ---
EXAM: CT Angiography Chest With Intravenous Contrast CLINICAL HISTORY: ITS.REASON CT Reason: tachy, R flank pain with normal labs/abd ct TECHNIQUE: Axial computed tomographic angiography images of the chest with intravenous contrast. CTDI is 10 mGy and DLP is 354 mGy-cm. This CT exam was performed using one or more of the following dose reduction techniques: automated exposure control, adjustment of the mA and/or kV according to patient size, and/or use of iterative reconstruction technique. MIP reconstructed images were created and reviewed. COMPARISON: No relevant prior studies available. FINDINGS: Pulmonary arteries: No filling defects. Aorta: No thoracic aortic aneurysm. Lungs: No mass. No consolidation. Pleural space: No pneumothorax. No significant effusion. Heart: No cardiomegaly. No pericardial effusion. Bones/joints: No acute fracture or dislocation. Soft tissues: Unremarkable. Lymph nodes: No enlarged lymph nodes. IMPRESSION: No acute intrathoracic findings.
[2018-12-15 04:03] VITALS: BP 125/75; PULSE 88
== END 2018-12-15 06:19 | disposition home or self-care (01) ==
LOC: EC 22:22
DX: R10.9 Unspecified abdominal pain (principal); R00.0 Tachycardia, unspecified; R74.8 Abnormal levels of other serum enzymes; K76.0 Fatty (change of) liver, not elsewhere classified; R11.2 Nausea with vomiting, unspecified; R30.0 Dysuria; R50.9 Fever, unspecified; Z88.8 Allergy status to other drugs, medicaments and biological substances; Z87.440 Personal history of urinary (tract) infections; Z90.49 Acquired absence of other specified parts of digestive tract; Z80.0 Family history of malignant neoplasm of digestive organs
CPT/HCPCS: 36415; 80053; 83605; 85025; 81001; 81025; 87040; 71275; 74177; 99284; 96374; 96375; 96376; 96361 ×4; J2270; J0696; Q9967 ×2

== ENCOUNTER 2019-02-16 16:39 | Emergency (ER) | payer OTHER ==
[2019-02-16] MEDS ORDERED: ONDANSETRON ODT 4 MG TAB PO STA (18:18)
[2019-02-16] MEDS ORDERED: Acetaminophen-Codeine 300-30mg TAB PO STA (18:19)
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
[2019-02-16 19:47] VITALS: BP 101/65; PULSE 73; RESP 16; TEMP 98.5
[2019-02-16] MEDS ORDERED: ONDANSETRON 4 MG ODT STARTER PACK 2 TAB BTL PO STA (19:57)
[2019-02-16] MEDS ORDERED: CYCLOBENZAPRINE 10MG STARTER 3 TAB BTL PO STA (19:58)
== END 2019-02-16 20:07 | disposition home or self-care (01) ==
LOC: EC 16:39
DX: Z04.1 Encounter for examination and observation following transport accident (principal); M54.6 Pain in thoracic spine; Z88.8 Allergy status to other drugs, medicaments and biological substances; Z90.710 Acquired absence of both cervix and uterus
CPT/HCPCS: 71101; 72125; 70450; 99284; S0119

== ENCOUNTER 2019-08-02 12:58 | Emergency (ER) | payer OTHER ==
[2019-08-02] MEDS ORDERED: SODIUM CHLORIDE 0.9% 1,000 ML IV STA (13:16)
[2019-08-02] MEDS ORDERED: ONDANSETRON 4 MG/2 ML VIAL IVP STA (13:16)
[2019-08-02] MEDS ORDERED: KETOROLAC 30 MG/ML 1 ML VIAL IVP STA (13:16)
--- NOTE | 2019-08-02 13:19 | ED ---
Abdominal Pain HPI - General Chief Complaint: Abdominal Pain Stated Complaint: Vomting Time Seen by Provider: 08/02/19 13:05 Source: patient Mode of arrival: ambulatory Limitations: no limitations - History of Present Illness Initial Comments: Patient is a 34-year-old female presenting to emergency Department with complaints of left-sided flank pain as well as vomiting 4 days. Patient states she does have a history of kidney stones and this feels similar in nature. Patient denies having recent fever, chills. She states the pain starts in her left side and wraps around to the flank area. She is having dysuria. Patient admits to appendectomy, hysterectomy, no other abdominal surgeries. She denies chest pain, shortness of breath, diarrhea. She has no other complaints at this time. Upon arrival to the ER, her vital signs are stable. - Related Data Home Medications Medication Instructions Recorded Confirmed Ibuprofen [Advil] 200 mg PO Q8HR PRN 12/14/18 12/14/18 Previous Rx's Medication Instructions Recorded Ondansetron Odt [Zofran Odt] 4 mg PO Q8HR PRN #10 tab 08/02/19 Allergies Allergy/AdvReac Type Severity Reaction Status Date / Time metoclopramide [From Reglan] AdvReac Mild Rapid Verified 08/02/19 13:04 Heart Rate prochlorperazine maleate AdvReac Rapid Verified 08/02/19 13:04 [From Compazine] Heart Rate Review of Systems ROS Statement: Those systems with pertinent positive or pertinent negative responses have been documented in the HPI. ROS Other: All systems not noted in ROS Statement are negative. Past Medical History Past Medical History: No Reported History Additional Past Medical History / Comment(s): COLITIS, uti's, kidney infections, interstitial cystitis, kidney stones, RECTAL BLEEDING History of Any Multi-Drug Resistant Organisms: None Reported Past Surgical History: Appendectomy, Cholecystectomy, Hysterectomy, Tubal Ligation Additional Past Surgical History / Comment(s): novasure ENDOMETRIAL ABLATION, COLONOSCOPY Past Anesthesia/Blood Transfusion Reactions: No Reported Reaction Past Psychological History: No Psychological Hx Reported Smoking Status: Never smoker Past Alcohol Use History: None Reported Past Drug Use History: None Reported - Past Family History Father Family Medical History: No Reported History Mother Family Medical History: Cancer Additional Family Medical History / Comment(s): COLON CANCER General Exam - General Exam Comments Initial Comments: GENERAL: Well-appearing, well-nourished and in no acute distress, but appears uncomfortable. HEAD: Atraumatic, normocephalic. EYES: Pupils equal round and reactive to light, extraocular movements intact, sclera anicteric, conjunctiva are normal. ENT: TMs normal, nares patent, oropharynx clear without exudates. Moist mucous membranes. NECK: Normal range of motion, supple without lymphadenopathy or JVD. LUNGS: Breath sounds clear to auscultation bilaterally and equal. No wheezes rales or rhonchi. HEART: Regular rate and rhythm without murmurs, rubs or gallops. ABDOMEN: Tender to palpation in the left side of the abdomen, left flank area. Mild suprapubic tenderness. Positive percussion. Soft, normoactive bowel sounds. No guarding, no rebound. No masses appreciated. : Deferred EXTREMITIES: Normal range of motion, no pitting or edema. No clubbing or cyanosis. NEUROLOGICAL: Normal speech, normal gait. PSYCH: Normal mood, normal affect. SKIN: Warm, Dry, normal turgor, no rashes or lesions noted. Limitations: no limitations Course Vital Signs 08/02/19 08/02/19 08/02/19 13:02 14:04 14:26 Temperature 98.3 F 98.3 F Pulse Rate 76 76 90 Respiratory 20 20 Rate Blood Pressure 143/88 108/75 O2 Sat by Pulse 99 99 96 Oximetry 08/02/19 08/02/19 08/02/19 14:30 14:40 14:50 Temperature Pulse Rate 88 98 Respiratory 18 18 Rate Blood Pressure 108/75 108/75 108/75 O2 Sat by Pulse 96 96 96 Oximetry 08/02/19 15:00 Temperature 98 F Pulse Rate 75 Respiratory 16 Rate Blood Pressure 120/86 O2 Sat by Pulse 96 Oximetry Medical Decision Making - Medical Decision Making Patient is a 34-year-old female presenting with left-sided abdominal pain, dysuria 4 days. She has history of kidney stones. Vitals stable. She has not secondary to hysterectomy. Lab work is unremarkable. Urine shows small amount of blood, no signs of infection. Abdominal CT shows no evidence of kidney stones. Mild enteritis. Patient was given fluids, Zofran, pain control and does report improvement in her symptoms. Patient will be discharged with additional Zofran to use as needed for nausea. I recommended clear liquid diet for one to 2 days and slowly introduce foods. Patient will follow up with her PCP. She is in agreement with this plan of care. Return parameters were di scussed with the patient and she verbalized understanding. Case discussed with Dr. Reyes. - Lab Data Result diagrams: 08/02/19 13:44 08/02/19 13:44 Lab Results 08/02/19 08/02/19 08/02/19 Range/Units 13:44 13:44 13:44 WBC 8.3 (3.8-10.6) k/uL RBC 4.18 (3.80-5.40) m/uL Hgb 13.0 (11.4-16.0) gm/dL Hct 39.6 (34.0-46.0) % MCV 94.7 (80.0-100.0) fL MCH 31.1 (25.0-35.0) pg MCHC 32.8 (31.0-37.0) g/dL RDW 11.5 (11.5-15.5) % Plt Count 331 (150-450) k/uL Neutrophils % 68 % Lymphocytes % 22 % Monocytes % 5 % Eosinophils % 3 % Basophils % 1 % Neutrophils # 5.6 (1.3-7.7) k/uL Lymphocytes # 1.8 (1.0-4.8) k/uL Monocytes # 0.4 (0-1.0) k/uL Eosinophils # 0.2 (0-0.7) k/uL Basophils # 0.1 (0-0.2) k/uL Sodium 137 (137-145) mmol/L Potassium 3.9 (3.5-5.1) mmol/L Chloride 105 (98-107) mmol/L Carbon Dioxide 24 (22-30) mmol/L Anion Gap 8 mmol/L BUN 10 (7-17) mg/dL Creatinine 0.52 (0.52-1.04) mg/dL Est GFR (CKD-EPI)AfAm >90 (>60 ml/min/1.73 sqM) Est GFR (CKD-EPI)NonAf >90 (>60 ml/min/1.73 sqM) Glucose 85 (74-99) mg/dL Calcium 9.6 (8.4-10.2) mg/dL Total Bilirubin 0.5 (0.2-1.3) mg/dL AST 19 (14-36) U/L ALT 12 (4-34) U/L Alkaline Phosphatase 55 (38-126) U/L Total Protein 7.6 (6.3-8.2) g/dL Albumin 4.6 (3.5-5.0) g/dL Urine Color Yellow Urine Appearance Clear (Clear) Urine pH 6.5 (5.0-8.0) Ur Specific [place] 1.024 (1.001-1.035) Urine Protein Negative (Negative) Urine Glucose (UA) Negative (Negative) Urine Ketones 1+ H (Negative) Urine Blood Small H (Negative) Urine Nitrite Negative (Negative) Urine Bilirubin Negative (Negative) Urine Urobilinogen <2.0 (<2.0) mg/dL Ur Leukocyte Esterase Negative (Negative) Urine RBC 13 H (0-5) /hpf Urine WBC 2 (0-5) /hpf Ur Squamous Epith Cells 2 (0-4) /hpf Urine Mucus Many H (None) /hpf Disposition Clinical Impression: Abdominal pain, Enteritis Disposition: HOME SELF-CARE Condition: Stable Instructions (If sedation given, give patient instructions): Enteritis (ED) Additional Instructions: Please return to the Emergency Department if symptoms worsen or any other concerns. Trial of clear liquid diet for one to 2 days. Continue to increase fluid intake. T felisa Zofran as needed for nausea. Follow-up with PCP. Prescriptions: Ondansetron Odt [Zofran Odt] 4 mg PO Q8HR PRN #10 tab PRN Reason: Nausea Is patient prescribed a controlled substance at d/c from ED?: No Referrals: Mara Jack MD [Primary Care Provider] - 1-2 days
[2019-08-02 14:03] LABS: Basophils # (A) 0.1 k/uL (0-0.2); Basophils % (A) 1 %; Eosinophils # (A) 0.2 k/uL (0-0.7); Eosinophils % (A) 3 %; HCT 39.6 % (34.0-46.0); Lymphocytes # (A) 1.8 k/uL (1.0-4.8); Lymphocytes % (A) 22 %; MCH 31.1 pg (25.0-35.0); MCHC 32.8 g/dL (31.0-37.0); MCV 94.7 fL (80.0-100.0); Monocytes # (A) 0.4 k/uL (0-1.0); Monocytes % (A) 5 %; Neutrophils # (A) 5.6 k/uL (1.3-7.7); Neutrophils % (A) 68 %; Platelet Count 331 k/uL (150-450); RBC 4.18 m/uL (3.80-5.40); RDW 11.5 % (11.5-15.5); WBC 8.3 k/uL (3.8-10.6)
[2019-08-02 14:13] LABS: ALT 12 U/L (4-34); AST 19 U/L (14-36); African American GFR (CKD) >90 (>60 ml/min/1.73 sqM); Albumin 4.6 g/dL (3.5-5.0); Alkaline Phosphatase 55 U/L (38-126); Anion Gap 8 mmol/L; Blood Urea Nitrogen 10 mg/dL (7-17); Calcium 9.6 mg/dL (8.4-10.2); Carbon Dioxide 24 mmol/L (22-30); Chloride 105 mmol/L (98-107); Glucose 85 mg/dL (74-99); Non-African American GFR(CKD) >90 (>60 ml/min/1.73 sqM); Potassium 3.9 mmol/L (3.5-5.1); Sodium 137 mmol/L (137-145); Total Bilirubin 0.5 mg/dL (0.2-1.3); Total Protein 7.6 g/dL (6.3-8.2)
[2019-08-02 14:15] LABS: Appearance,Urine Clear (Clear); Bilirubin,Urine Negative (Negative); Blood,Urine Small (Negative); Color,Urine Yellow; Glucose,Urine (UA) Negative (Negative); Ketones,Urine 1+ (Negative); Leukocyte Esterase,Urine Negative (Negative); Mucus,Urine Many /hpf; Nitrite,Urine Negative (Negative); PH, Urine 6.5 (5.0-8.0); Protein,Urine Negative (Negative); RBC,Urine 13 /hpf (0-5); Specific Gravity,Urine 1.024 (1.001-1.035); Squamous Epithelial Cell,Urine 2 /hpf (0-4); Urobilinogen,Urine <2.0 mg/dL (<2.0); WBC,Urine 2 /hpf (0-5)
--- NOTE | 2019-08-02 14:38 | CT ---
EXAMINATION TYPE: CT abdomen pelvis wo con DATE OF EXAM: 08/02/2019 COMPARISON: 12/15/2018 HISTORY: Abdominal pain with nausea/vomiting. CT DLP: 520.7 mGycm Examination of the solid and hollow viscera is limited given the lack of contrast. FINDINGS: LUNG BASES: No evidence for nodule. No evidence for infiltrate. LIVER/GB: The gallbladder is surgically absent. No space-occupying hepatic lesion. PANCREAS: No pancreatic mass identified. No inflammatory process seen. SPLEEN: No evidence for splenomegaly. No intrasplenic lesions seen. ADRENALS: No adrenal nodules identified. No evidence for thickening. KIDNEYS: No evidence for renal mass. No nephrolithiasis. No hydronephrosis. BOWEL: Appendix has a normal appearance. No evidence of bowel obstruction. There is mild small bowel wall thickening involving the jejunum which may reflect enteritis. Correlate clinically. Lymph nodes: No evidence for adenopathy greater than 1 cm. Abdominal aorta: Atheromatous changes seen. No evidence for aneurysm. Genital organs: No significant abnormality. Other: No significant abnormality. IMPRESSION: 1. Correlate for jejunal enteritis.
[2019-08-02] MEDS ORDERED: MORPHINE SULFATE 4 MG/ML SYRINGE IVP STA (14:51)
[2019-08-02 15:03] VITALS: RESP 16; TEMP 98
[2019-08-02] MEDS ORDERED: ONDANSETRON 4 MG ODT STARTER PACK 2 TAB BTL PO STA (15:09)
[2019-08-02 15:25] VITALS: BP 115/72; PULSE 71
== END 2019-08-02 15:33 | disposition home or self-care (01) ==
LOC: EC 12:58
DX: K52.9 Noninfective gastroenteritis and colitis, unspecified (principal); R30.0 Dysuria; Z87.440 Personal history of urinary (tract) infections; Z87.442 Personal history of urinary calculi; Z90.49 Acquired absence of other specified parts of digestive tract; Z90.710 Acquired absence of both cervix and uterus; Z98.51 Tubal ligation status; Z98.890 Other specified postprocedural states; Z88.8 Allergy status to other drugs, medicaments and biological substances
CPT/HCPCS: 99284; 96374; 96375 ×2; 96361; 36415; 80053; 85025; 81001; 74176; J2270; J2405; J1885; S0119

== ENCOUNTER 2019-09-21 21:28 | Emergency (ER) | payer OTHER ==
[2019-09-21 21:38] VITALS: TEMP 98.6
[2019-09-21 22:06] LABS: Basophils # (A) 0.1 k/uL (0-0.2); Basophils % (A) 1 %; Eosinophils # (A) 0.2 k/uL (0-0.7); Eosinophils % (A) 3 %; HCT 38.8 % (34.0-46.0); HGB 12.8 gm/dL (11.4-16.0); Lymphocytes # (A) 2.8 k/uL (1.0-4.8); Lymphocytes % (A) 31 %; MCHC 33.1 g/dL (31.0-37.0); MCV 96.6 fL (80.0-100.0); Mean Platelet Volume 6.9; Monocytes # (A) 0.5 k/uL (0-1.0); Monocytes % (A) 6 %; Neutrophils # (A) 5.2 k/uL (1.3-7.7); Neutrophils % (A) 57 %; Platelet Count 345 k/uL (150-450); RBC 4.01 m/uL (3.80-5.40); RDW 11.9 % (11.5-15.5); WBC 9.1 k/uL (3.8-10.6)
[2019-09-21 22:14] LABS: ALT 14 U/L (4-34); AST 21 U/L (14-36); African American GFR (CKD) >90 (>60 ml/min/1.73 sqM); Albumin 4.7 g/dL (3.5-5.0); Alkaline Phosphatase 70 U/L (38-126); Anion Gap 7 mmol/L; Blood Urea Nitrogen 13 mg/dL (7-17); Calcium 9.5 mg/dL (8.4-10.2); Carbon Dioxide 26 mmol/L (22-30); Chloride 103 mmol/L (98-107); Glucose 90 mg/dL (74-99); Non-African American GFR(CKD) >90 (>60 ml/min/1.73 sqM); Sodium 136 mmol/L (137-145); Total Bilirubin 0.3 mg/dL (0.2-1.3); Total Protein 7.4 g/dL (6.3-8.2)
[2019-09-21] MEDS ORDERED: SODIUM CHLORIDE 0.9% 1,000 ML IV ONE (22:22)
[2019-09-21] MEDS ORDERED: ONDANSETRON 4 MG/2 ML VIAL IVP STA (22:22)
[2019-09-21] MEDS ORDERED: MORPHINE SULFATE 4 MG/ML SYRINGE IV STA (22:22)
[2019-09-21 22:38] LABS: Appearance,Urine Clear (Clear); Bilirubin,Urine Negative (Negative); Blood,Urine Small (Negative); Color,Urine Light Yellow; Glucose,Urine (UA) Negative (Negative); Ketones,Urine Negative (Negative); Leukocyte Esterase,Urine Negative (Negative); Mucus,Urine Rare /hpf; Nitrite,Urine Negative (Negative); PH, Urine 5.5 (5.0-8.0); Protein,Urine Negative (Negative); RBC,Urine 1 /hpf (0-5); Specific Gravity,Urine 1.007 (1.001-1.035); Squamous Epithelial Cell,Urine 1 /hpf (0-4); Urobilinogen,Urine <2.0 mg/dL (<2.0); WBC,Urine <1 /hpf (0-5)
--- NOTE | 2019-09-21 22:53 | XR ---
EXAMINATION TYPE: XR KUB DATE OF EXAM: 09/21/2019 COMPARISON: 03/16/2018 HISTORY: Abdominal pain TECHNIQUE: 2 views upright FINDINGS: There is no sign of intestinal obstruction or pneumoperitoneum. Fecal pattern is normal. Th ere are clips from cholecystectomy. Lung bases are clear. There is no evidence of a mass. IMPRESSION: Nonacute abdomen. No change.
--- NOTE | 2019-09-21 23:44 | ED ---
General Adult HPI - General Chief complaint: Abdominal Pain Stated complaint: Vomiting, flank pain Time Seen by Provider: 09/21/19 21:39 Source: patient, RN notes reviewed, old records reviewed Mode of arrival: wheelchair Limitations: no limitations - History of Present Illness Initial comments: 34 old female patient presents ED for chief complaint of 2 days of right-sided flank pain. Patient also reports that she has had a little bit of pain with urination. Patient was that she has history of kidney stones and this feels similar to her kidney stones in the past. She denies a chance of being . Denies any other complaints. Systemic: Pt denies fatigue, fever/chills, rash. Pt denies weakness, night sweats, weight loss. Neuro: Pt denies headache, visual disturbances, syncope or pre-syncope. HEENT: Pt denies ocular discharge or irritation, otalgia, rhinorrhea, pharyngitis or notable lymphadenopathy. Cardiopulmonary: Pt denies chest pain, SOB, heart palpitations, dyspnea on exertion. Abdominal/GI: Pt denies abdominal pain, n/v/d. : Denies new onset urinary or bowel incontinence. MSK: Pt denies myalgia, loss of strength or function in extremities. Neuro: Pt denies new onset weakness, paresthesias. - Related Data Allergies Allergy/AdvReac Type Severity Reaction Status Date / Time metoclopramide [From Reglan] AdvReac Mild Rapid Verified 09/21/19 23:02 Heart Rate prochlorperazine maleate AdvReac Rapid Verified 09/21/19 23:02 [From Compazine] Heart Rate Review of Systems ROS Statement: Those systems with pertinent positive or pertinent negative responses have been documented in the HPI. ROS Other: All systems not noted in ROS Statement are negative. Past Medical History Past Medical History: No Reported History Additional Past Medical History / Comment(s): COLITIS, uti's, kidney infections, interstitial cystitis, kidney stones, RECTAL BLEEDING History of Any Multi-Drug Resistant Organisms: None Reported Past Surgical History: Appendectomy, Cholecystectomy, Hysterectomy, Tubal Ligation Additional Past Surgical History / Comment(s): novasure ENDOMETRIAL ABLATION, COLONOSCOPY Past Anesthesia/Blood Transfusion Reactions: No Reported Reaction Past Psychological History: No Psychological Hx Reported Smoking Status: Never smoker Past Alcohol Use History: None Reported Past Drug Use History: Marijuana - Past Family History Father Family Medical History: No Reported History Mother Family Medical History: Cancer Additional Family Medical History / Comment(s): COLON CANCER General Exam - General Exam Comments Initial Comments: Constitutional: NAD, AOX3, Pt has pleasant affect. HEENT: NC/AT, trachea midline, neck supple, no lymphadenopathy. Posterior pharynx non erythematous, without exudates. External ears appear normal, without discharge. Mucous membranes moist. Eyes PERRLA, EOM intact. There is no scleral icterus. No pallor noted. Cardiopulmonary: RRR, no murmurs, rubs or gallops, no JVD noted. Lungs CTAB in anterior and posterior hernández. No peripheral edema. Abdominal exam: Abdomen soft and non-distended. Abdomen non-tender to palpation in all 4 quadrants. Bowel sounds active in LLQ. No hepatosplenomegaly. No ecchymosis. Right flank is mildly tender to palpation. No skin changes. Neuro: CN II-XII grossly intact. No nuchal rigidity. No raccon eyes, no rivero sign, no hemotympanum. No cervical spinal tenderness. MSK: Full active ROM in upper and lower extremities, 5/5 stregnth. Limitations: no limitations Course Vital Signs 09/21/19 09/22/19 21:35 00:06 Temperature 98.6 F Pulse Rate 95 90 Respiratory 16 18 Rate Blood Pressure 117/70 120/68 O2 Sat by Pulse 100 100 Oximetry Medical Decision Making - Medical Decision Making 34 old female patient presents ED for chief complaint of 2 days of right-sided flank pain. Patient also reports that she has had a little bit of pain with urination. Patient was that she has history of kidney stones and this feels similar to her kidney stones in the past. She denies a chance of being . Denies any other complaints. Patient vital signs are stable, afebrile. Physical exam displayed mild right flank tenderness. Laboratory investigations are non-impressive. UA does display 1 red blood cell. Pt denies any concern for STI. Patient presentation consistent with ureteral calculi. No signs of infection. This patient has had 14 prior CTs of her abdomen or pelvis a KUB was performed. She is in agreement with this her decision making. This displayed non acute abdomen. Patient was discharged will follow up with primary care provider tomorrow and return to ER if condition worsens. Case discussed with Dr. Baker. - Lab Data Result diagrams: 09/21/19 21:54 09/21/19 21:54 Lab Results 09/21/19 09/21/19 09/21/19 Range/Units 21:54 21:54 21:54 WBC 9.1 (3.8-10.6) k/uL RBC 4.01 (3.80-5.40) m/uL Hgb 12.8 (11.4-16.0) gm/dL Hct 38.8 (34.0-46.0) % MCV 96.6 (80.0-100.0) fL MCH 32.0 (25.0-35.0) pg MCHC 33.1 (31.0-37.0) g/dL RDW 11.9 (11.5-15.5) % Plt Count 345 (150-450) k/uL Neutrophils % 57 % Lymphocytes % 31 % Monocytes % 6 % Eosinophils % 3 % Basophils % 1 % Neutrophils # 5.2 (1.3-7.7) k/uL Lymphocytes # 2.8 (1.0-4.8) k/uL Monocytes # 0.5 (0-1.0) k/uL Eosinophils # 0.2 (0-0.7) k/uL Basophils # 0.1 (0-0.2) k/uL Sodium (137-145) mmol/L Potassium (3.5-5.1) mmol/L Chloride (98-107) mmol/L Carbon Dioxide (22-30) mmol/L Anion Gap mmol/L BUN (7-17) mg/dL Creatinine (0.52-1.04) mg/dL Est GFR (CKD-EPI)AfAm (>60 ml/min/1.73 sqM) Est GFR (CKD-EPI)NonAf (>60 ml/min/1.73 sqM) Glucose (74-99) mg/dL Plasma Lactic Acid Kevin (0.7-2.0) mmol/L Calcium (8.4-10.2) mg/dL Total Bilirubin (0.2-1.3) mg/dL AST (14-36) U/L ALT (4-34) U/L Alkaline Phosphatase (38-126) U/L Total Protein (6.3-8.2) g/dL Albumin (3.5-5.0) g/dL Lipase (23-300) U/L Urine Color Light Yellow Urine Appearance Clear (Clear) Urine pH 5.5 (5.0-8.0) Ur Specific [place] 1.007 (1.001-1.035) Urine Protein Negative (Negative) Urine Glucose (UA) Negative (Negative) Urine Ketones Negative (Negative) Urine Blood Small H (Negative) Urine Nitrite Negative (Negative) Urine Bilirubin Negative (Negative) Urine Urobilinogen <2.0 (<2.0) mg/dL Ur Leukocyte Esterase Negative (Negative) Urine RBC 1 (0-5) /hpf Urine WBC <1 (0-5) /hpf Ur Squamous Epith Cells 1 (0-4) /hpf Urine Mucus Rare H (None) /hpf Urine HCG, Qual Not Detected (Not Detectd) 09/21/19 09/21/19 Range/Units 21:54 21:54 WBC (3.8-10.6) k/uL RBC (3.80-5.40) m/uL Hgb (11.4-16.0) gm/dL Hct (34.0-46.0) % MCV (80.0-100.0) fL MCH (25.0-35.0) pg MCHC (31.0-37.0) g/dL RDW (11.5-15.5) % Plt Count (150-450) k/uL Neutrophils % % Lymphocytes % % Monocytes % % Eosinophils % % Basophils % % Neutrophils # (1.3-7.7) k/uL Lymphocytes # (1.0-4.8) k/uL Monocytes # (0-1.0) k/uL Eosinophils # (0-0.7) k/uL Basophils # (0-0.2) k/uL Sodium 136 L (137-145) mmol/L Potassium 4.0 (3.5-5.1) mmol/L Chloride 103 (98-107) mmol/L Carbon Dioxide 26 (22-30) mmol/L Anion Gap 7 mmol/L BUN 13 (7-17) mg/dL Creatinine 0.73 (0.52-1.04) mg/dL Est GFR (CKD-EPI)AfAm >90 (>60 ml/min/1.73 sqM) Est GFR (CKD-EPI)NonAf >90 (>60 ml/min/1.73 sqM) Glucose 90 (74-99) mg/dL Plasma Lactic Acid Kevin 0.6 L (0.7-2.0) mmol/L Calcium 9.5 (8.4-10.2) mg/dL Total Bilirubin 0.3 (0.2-1.3) mg/dL AST 21 (14-36) U/L ALT 14 (4-34) U/L Alkaline Phosphatase 70 (38-126) U/L Total Protein 7.4 (6.3-8.2) g/dL Albumin 4.7 (3.5-5.0) g/dL Lipase 95 (23-300) U/L Urine Color Urine Appearance (Clear) Urine pH (5.0-8.0) Ur Specific [place] (1.001-1.035) Urine Protein (Negative) Urine Glucose (UA) (Negative) Urine Ketones (Negative) Urine Blood (Negative) Urine Nitrite (Negative) Urine Bilirubin (Negative) Urine Urobilinogen (<2.0) mg/dL Ur Leukocyte Esterase (Negative) Urine RBC (0-5) /hpf Urine WBC (0-5) /hpf Ur Squamous Epith Cells (0-4) /hpf Urine Mucus (None) /hpf Urine HCG, Qual (Not Detectd) Disposition Clinical Impression: Flank pain Disposition: HOME SELF-CARE Condition: Stable Instructions (If sedation given, give patient instructions): Flank Pain (ED) Additional Instructions: Follow-up with primary care provider tomorrow. May use Tylenol and Motrin as needed for pain. Follow up with urologist tomorrow. Return to ED if condition worsens. Is patient prescribed a controlled substance at d/c from ED?: No Referrals: Mara Jack MD [Primary Care Provider] - 1-2 days Tucker Cazares MD [STAFF PHYSICIAN] - 1-2 days
[2019-09-21] MEDS ORDERED: KETOROLAC 30 MG/ML 1 ML VIAL IVP STA (23:51)
[2019-09-21] MEDS ORDERED: ACET/COD 300 MG/30 MG STARTER PACK 6 TAB BTL PO STA (23:57)
[2019-09-22 00:07] VITALS: BP 120/68; PULSE 90; RESP 18
[2019-09-24 12:42] LABS: C. trachomatis,PCR Negative (Neg,Equiv); Chlamydia trachomatis Source Urine; N. gonorrhoeae,PCR Negative (Neg,Equiv); Neisseria Source Urine
== END 2019-09-22 00:07 | disposition home or self-care (01) ==
LOC: EC 21:28
DX: R10.9 Unspecified abdominal pain (principal); Z88.8 Allergy status to other drugs, medicaments and biological substances; Z90.89 Acquired absence of other organs; Z90.49 Acquired absence of other specified parts of digestive tract; Z90.710 Acquired absence of both cervix and uterus; Z98.51 Tubal ligation status
CPT/HCPCS: 36415; 80053; 83605; 83690; 85025; 81001; 81025; 87491; 87591; 87086; 74018; 99284; 96374; 96375 ×2; 96361; J2270; J2405; J1885

== ENCOUNTER → 2020-01-09 | Outpatient (CLI) | payer OTHER ==
[2020-01-09 11:50] LABS: Basophils # (A) 0.1 k/uL (0-0.2); Basophils % (A) 1 %; Eosinophils # (A) 0.1 k/uL (0-0.7); Eosinophils % (A) 2 %; HGB 12.7 gm/dL (11.4-16.0); Lymphocytes # (A) 1.6 k/uL (1.0-4.8); Lymphocytes % (A) 22 %; MCH 33.2 pg (25.0-35.0); MCHC 33.5 g/dL (31.0-37.0); MCV 99.2 fL (80.0-100.0); Mean Platelet Volume 6.9; Monocytes # (A) 0.3 k/uL (0-1.0); Monocytes % (A) 5 %; Neutrophils # (A) 4.8 k/uL (1.3-7.7); Neutrophils % (A) 69 %; Platelet Count 284 k/uL (150-450); RBC 3.83 m/uL (3.80-5.40); RDW 11.4 % (11.5-15.5)
[2020-01-09 20:17] LABS: Anion Gap 5.3 mmol/L (4.00-12.00); BUN/Creat Ratio 12.86 Ratio (12.00-20.00); Calcium 9.3 mg/dL (8.7-10.3); Carbon Dioxide 26.7 mmol/L (21.6-31.8); Potassium 3.7 mmol/L (3.5-5.5)
== END | disposition home or self-care (01) ==
LOC: LABWHC1 10:09
PROVIDERS: ATTEND Urology
DX: N30.11 Interstitial cystitis (chronic) with hematuria (principal); Z88.8 Allergy status to other drugs, medicaments and biological substances
CPT/HCPCS: 36415; 80048; 85025

== ENCOUNTER 2020-02-26 22:12 | Emergency (ER) | payer OTHER ==
[2020-02-26] MEDS ORDERED: ONDANSETRON 4 MG/2 ML VIAL IVP STA (22:38)
[2020-02-26] MEDS ORDERED: SODIUM CHLORIDE 0.9% 1,000 ML IV ONE (22:38)
[2020-02-26] MEDS ORDERED: HYDROmorphone 0.5 MG/0.5 ML SYRINGE IVP STA (22:38)
[2020-02-26] MEDS ORDERED: KETOROLAC 15 MG/ML 1 ML VIAL IVP STA (22:38)
[2020-02-26 22:53] LABS: Appearance,Urine Cloudy (Clear); Bilirubin,Urine Negative (Negative); Blood,Urine Moderate (Negative); Color,Urine Yellow; Glucose,Urine (UA) Negative (Negative); Ketones,Urine Trace (Negative); Leukocyte Esterase,Urine Small (Negative); Mucus,Urine Occasional /hpf; Nitrite,Urine Negative (Negative); PH, Urine 5.5 (5.0-8.0); Protein,Urine Negative (Negative); RBC,Urine 10 /hpf (0-5); Specific Gravity,Urine 1.018 (1.001-1.035); Squamous Epithelial Cell,Urine 12 /hpf (0-4); Urobilinogen,Urine <2.0 mg/dL (<2.0); WBC,Urine 2 /hpf (0-5)
[2020-02-26 23:07] LABS: Basophils # (A) 0.1 k/uL (0-0.2); Basophils % (A) 1 %; Eosinophils # (A) 0.3 k/uL (0-0.7); Eosinophils % (A) 3 %; HCT 38.1 % (34.0-46.0); HGB 13.1 gm/dL (11.4-16.0); Lymphocytes # (A) 3.2 k/uL (1.0-4.8); Lymphocytes % (A) 32 %; MCH 33.1 pg (25.0-35.0); MCHC 34.4 g/dL (31.0-37.0); MCV 96.4 fL (80.0-100.0); Monocytes # (A) 0.4 k/uL (0-1.0); Monocytes % (A) 4 %; Neutrophils # (A) 5.8 k/uL (1.3-7.7); Neutrophils % (A) 59 %; Platelet Count 317 k/uL (150-450); RBC 3.95 m/uL (3.80-5.40); RDW 11.8 % (11.5-15.5); WBC 9.9 k/uL (3.8-10.6)
--- NOTE | 2020-02-26 23:11 | ED ---
General Adult HPI - General Chief complaint: Urogenital Stated complaint: ABD pain Time Seen by Provider: 02/26/20 22:20 Source: patient Mode of arrival: ambulatory Limitations: no limitations - History of Present Illness Initial comments: 34-year-old female patient presents to the emergency department today for evaluation of left upper quadrant abdominal pain. Patient states the pain is been going on for the last 3 days. She is experiencing associated dysuria, urinary frequency, and hematuria. Denies any fever but states she has been chilled. States she is having nausea but no vomiting. Denies constipation or diarrhea. Does report a history of cholecystectomy, appendectomy, and hysterectomy. She is concerned for possible STDs due to mild vaginal discharge. Denies any dyspareunia. Patient denies any recent rash, cough, shortness of breath, chest pain, back pain, numbness, tingling, dizziness, weakness, headache, visual changes, or any other complaints. - Related Data Previous Rx's Medication Instructions Recorded Naproxen [EC-Naprosyn] 500 mg PO BID PRN #30 tablet. 02/27/20 Ondansetron [Zofran ODT] 4 mg PO Q8HR PRN #10 tab 02/27/20 Tamsulosin HCl [Flomax] 0.4 mg PO DAILY #7 cap 02/27/20 Allergies Allergy/AdvReac Type Severity Reaction Status Date / Time metoclopramide [From Reglan] AdvReac Mild Rapid Verified 02/26/20 22:16 Heart Rate prochlorperazine maleate AdvReac Rapid Verified 02/26/20 22:16 [From Compazine] Heart Rate Review of Systems ROS Statement: Those systems with pertinent positive or pertinent negative responses have been documented in the HPI. ROS Other: All systems not noted in ROS Statement are negative. Past Medical History Past Medical History: No Reported History Additional Past Medical History / Comment(s): COLITIS, uti's, kidney infections, interstitial cystitis, kidney stones, RECTAL BLEEDING History of Any Multi-Drug Resistant Organisms: None Reported Past Surgical History: Appendectomy, Cholecystectomy, Hysterectomy, Tubal Ligation Additional Past Surgical History / Comment(s): novasure ENDOMETRIAL ABLATION, COLONOSCOPY Past Anesthesia/Blood Transfusion Reactions: No Reported Reaction Past Psychological History: No Psychological Hx Reported Smoking Status: Never smoker Past Alcohol Use History: None Reported Past Drug Use History: Marijuana - Past Family History Father Family Medical History: No Reported History Mother Family Medical History: Cancer Additional Family Medical History / Comment(s): COLON CANCER General Exam Limitations: no limitations General appearance: alert, in no apparent distress, other (Physical well- developed, well-nourished adult female patient in no acute distress. Vital signs upon presentation are temperature 98.1F, pulse 96, respirations 20, blood pressure 124/67, pulse ox 99% on room air.) Eye exam: Present: normal appearance, PERRL, EOMI. Absent: scleral icterus, conjunctival injection, periorbital swelling ENT exam: Present: normal exam, normal oropharynx, mucous membranes moist Respiratory exam: Present: normal lung sounds bilaterally. Absent: respiratory distress, wheezes, rales, rhonchi, stridor Cardiovascular Exam: Present: regular rate, normal rhythm, normal heart sounds. Absent: systolic murmur, diastolic murmur, rubs, gallop, clicks GI/Abdominal exam: Present: soft, tenderness (Left-sided upper and lower quadrant tenderness), normal bowel sounds. Absent: distended, guarding, rebou nd, rigid External exam: Present: normal external exam Speculum exam: Present: normal speculum exam, vaginal discharge (mild white) By manual exam: Present: normal by manual exam Neurological exam: Present: alert, oriented X3, CN II-XII intact Psychiatric exam: Present: normal affect, normal mood Skin exam: Present: warm, dry, intact, normal color. Absent: rash Course Vital Signs 02/26/20 02/26/20 22:14 23:13 Temperature 98.1 F Pulse Rate 96 84 Respiratory 20 18 Rate Blood Pressure 124/67 109/70 O2 Sat by Pulse 99 100 Oximetry Medical Decision Making - Medical Decision Making 34-year-old female patient presents to the emergency department today for evaluation of left-sided abdominal pain. Physical examination did reveal soft but tender left upper quadrant. Mild left CVA tenderness. Labs reviewed and revealed normal white blood cell count. She did have 10 red blood cells in the urine she also has a history of kidney stones. Symptoms are consistent with kidney stone wheelchair Flomax, pain medication, nausea medication. She'll be discharged follow up with urology and her primary care physician. Return par ameters were discussed in detail. She verbalizes understanding and agrees with this plan. - Lab Data Result diagrams: 02/26/20 22:55 02/26/20 22:55 Lab Results 02/26/20 02/26/20 02/26/20 Range/Units 22:25 22:55 22:55 WBC 9.9 (3.8-10.6) k/uL RBC 3.95 (3.80-5.40) m/uL Hgb 13.1 (11.4-16.0) gm/dL Hct 38.1 (34.0-46.0) % MCV 96.4 (80.0-100.0) fL MCH 33.1 (25.0-35.0) pg MCHC 34.4 (31.0-37.0) g/dL RDW 11.8 (11.5-15.5) % Plt Count 317 (150-450) k/uL MPV 7.0 Neutrophils % 59 % Lymphocytes % 32 % Monocytes % 4 % Eosinophils % 3 % Basophils % 1 % Neutrophils # 5.8 (1.3-7.7) k/uL Lymphocytes # 3.2 (1.0-4.8) k/uL Monocytes # 0.4 (0-1.0) k/uL Eosinophils # 0.3 (0-0.7) k/uL Basophils # 0.1 (0-0.2) k/uL Sodium 137 (137-145) mmol/L Potassium 4.0 (3.5-5.1) mmol/L Chloride 105 (98-107) mmol/L Carbon Dioxide 26 (22-30) mmol/L Anion Gap 6 mmol/L BUN 12 (7-17) mg/dL Creatinine 0.67 (0.52-1.04) mg/dL Est GFR (CKD-EPI)AfAm >90 (>60 ml/min/1.73 sqM) Est GFR (CKD-EPI)NonAf >90 (>60 ml/min/1.73 sqM) Glucose 113 H (74-99) mg/dL Plasma Lactic Acid Kevin (0.7-2.0) mmol/L Calcium 9.3 (8.4-10.2) mg/dL Total Bilirubin 0.3 (0.2-1.3) mg/dL AST 16 (14-36) U/L ALT 12 (4-34) U/L Alkaline Phosphatase 59 (38-126) U/L Total Protein 7.3 (6.3-8.2) g/dL Albumin 4.6 (3.5-5.0) g/dL Lipase 198 (23-300) U/L Urine Color Yellow Urine Appearance Cloudy H (Clear) Urine pH 5.5 (5.0-8.0) Ur Specific [place] 1.018 (1.001-1.035) Urine Protein Negative (Negative) Urine Glucose (UA) Negative (Negative) Urine Ketones Trace H (Negative) Urine Blood Moderate H (Negative) Urine Nitrite Negative (Negative) Urine Bilirubin Negative (Negative) Urine Urobilinogen <2.0 (<2.0) mg/dL Ur Leukocyte Esterase Small H (Negative) Urine RBC 10 H (0-5) /hpf Urine WBC 2 (0-5) /hpf Ur Squamous Epith Cells 12 H (0-4) /hpf Urine Mucus Occasional H (None) /hpf Trichomonas Ag (Rapid) (Negative) 02/26/20 02/26/20 Range/Units 22:55 23:52 WBC (3.8-10.6) k/uL RBC (3.80-5.40) m/uL Hgb (11.4-16.0) gm/dL Hct (34.0-46.0) % MCV (80.0-100.0) fL MCH (25.0-35.0) pg MCHC (31.0-37.0) g/dL RDW (11.5-15.5) % Plt Count (150-450) k/uL MPV Neutrophils % % Lymphocytes % % Monocytes % % Eosinophils % % Basophils % % Neutrophils # (1.3-7.7) k/uL Lymphocytes # (1.0-4.8) k/uL Monocytes # (0-1.0) k/uL Eosinophils # (0-0.7) k/uL Basophils # (0-0.2) k/uL Sodium (137-145) mmol/L Potassium (3.5-5.1) mmol/L Chloride (98-107) mmol/L Carbon Dioxide (22-30) mmol/L Anion Gap mmol/L BUN (7-17) mg/dL Creatinine (0.52-1.04) mg/dL Est GFR (CKD-EPI)AfAm (>60 ml/min/1.73 sqM) Est GFR (CKD-EPI)NonAf (>60 ml/min/1.73 sqM) Glucose (74-99) mg/dL Plasma Lactic Acid Kevin 1.2 (0.7-2.0) mmol/L Calcium (8.4-10.2) mg/dL Total Bilirubin (0.2-1.3) mg/dL AST (14-36) U/L ALT (4-34) U/L Alkaline Phosphatase (38-126) U/L Total Protein (6.3-8.2) g/dL Albumin (3.5-5.0) g/dL Lipase (23-300) U/L Urine Color Urine Appearance (Clear) Urine pH (5.0-8.0) Ur Specific [place] (1.001-1.035) Urine Protein (Negative) Urine Glucose (UA) (Negative) Urine Ketones (Negative) Urine Blood (Negative) Urine Nitrite (Negative) Urine Bilirubin (Negative) Urine Urobilinogen (<2.0) mg/dL Ur Leukocyte Esterase (Negative) Urine RBC (0-5) /hpf Urine WBC (0-5) /hpf Ur Squamous Epith Cells (0-4) /hpf Urine Mucus (None) /hpf Trichomonas Ag (Rapid) Negative (Negative) - Radiology Data Radiology results: report reviewed, image reviewed KUB was obtained. Report is reviewed in its entirety. Impression by Dr. Acevedo shows nonacute abdomen. No change. Disposition Clinical Impression: Abdominal pain, Hematuria Disposition: HOME SELF-CARE Condition: Good Instructions (If sedation given, give patient instructions): Kidney Stones (ED), Abdominal Pain (ED) Additional Instructions: Take medications as directed. Follow-up with her primary care physician for recheck in 1-2 days. Follow-up with urology as soon as possible. Return to emergency department for any new, worsening, or concerning symptoms. Prescriptions: Naproxen [EC-Naprosyn] 500 mg PO BID PRN #30 tablet.dr GARCIA Reason: Pain Tamsulosin HCl [Flomax] 0.4 mg PO DAILY #7 cap Ondansetron [Zofran ODT] 4 mg PO Q8HR PRN #10 tab PRN Reason: Nausea Is patient prescribed a controlled substance at d/c from ED?: No Referrals: Mara Jack MD [Primary Care Provider] - 1-2 days Time of Disposition: 00:16
[2020-02-26 23:15] VITALS: RESP 18
[2020-02-26 23:22] LABS: ALT 12 U/L (4-34); AST 16 U/L (14-36); African American GFR (CKD) >90 (>60 ml/min/1.73 sqM); Albumin 4.6 g/dL (3.5-5.0); Alkaline Phosphatase 59 U/L (38-126); Anion Gap 6 mmol/L; Blood Urea Nitrogen 12 mg/dL (7-17); Calcium 9.3 mg/dL (8.4-10.2); Carbon Dioxide 26 mmol/L (22-30); Chloride 105 mmol/L (98-107); Glucose 113 mg/dL (74-99); Lipase 198 U/L (23-300); Non-African American GFR(CKD) >90 (>60 ml/min/1.73 sqM); Sodium 137 mmol/L (137-145); Total Bilirubin 0.3 mg/dL (0.2-1.3); Total Protein 7.3 g/dL (6.3-8.2)
--- NOTE | 2020-02-27 00:06 | XR ---
EXAMINATION TYPE: XR KUB DATE OF EXAM: 02/27/2020 COMPARISON: 09/21/2019 HISTORY: Right-sided flank pain TECHNIQUE: 2 views upright FINDINGS: There are clips from cholecystectomy. There is no sign of intestinal obstruction or pneumop eritoneum. Fecal pattern is normal. There are no pathologic calcifications over the kidneys. Lung bas es are clear. There is no evidence of a mass. IMPRESSION: Nonacute abdomen. No change.
[2020-02-27] MEDS ORDERED: ACET/COD 300 MG/30 MG STARTER PACK 6 TAB BTL PO STA (00:16)
[2020-02-27] MEDS ORDERED: ONDANSETRON 4 MG ODT STARTER PACK 2 TAB BTL PO STA (00:16)
[2020-02-27] MEDS ORDERED: TAMSULOSIN 0.4 MG CAP.ER.24H PO STA (00:19)
[2020-02-27] MEDS ORDERED: HYDROmorphone 0.5 MG/0.5 ML SYRINGE IVP STA (00:19)
[2020-02-27 00:29] VITALS: BP 110/69; PULSE 88; TEMP 97.7
[2020-02-27 15:05] LABS: C. trachomatis,PCR Negative (Neg,Equiv); Chlamydia trachomatis Source Genital; N. gonorrhoeae,PCR Positive (Neg,Equiv); Neisseria Source Genital
== END 2020-02-27 00:33 | disposition home or self-care (01) ==
LOC: EC 22:12
DX: R10.12 Left upper quadrant pain (principal); R31.9 Hematuria, unspecified; R10.812 Left upper quadrant abdominal tenderness; Z88.8 Allergy status to other drugs, medicaments and biological substances; Z90.49 Acquired absence of other specified parts of digestive tract; Z90.89 Acquired absence of other organs; Z90.710 Acquired absence of both cervix and uterus; Z87.442 Personal history of urinary calculi; Z98.51 Tubal ligation status
CPT/HCPCS: 36415; 80053; 83605; 83690; 85025; 81001; 87808; 87491; 87591; 74018; 99284; 96374; 96375 ×2; 96376; 96361; J2405; J1885; S0119; J1170 ×2

== ENCOUNTER 2020-02-27 15:04 | Emergency (ER) | payer OTHER ==
[2020-02-27 15:14] VITALS: BP 135/65; PULSE 88; RESP 18; TEMP 98.6
--- NOTE | 2020-02-27 15:43 | ED ---
Abdominal Pain HPI - General Chief Complaint: Abdominal Pain Stated Complaint: Revisit - Abd Pain/Vomiting Time Seen by Provider: 02/27/20 15:16 Source: patient Mode of arrival: ambulatory Limitations: no limitations - History of Present Illness Initial Comments: 34-year-old female presenting to the emergency department with a chief complaint of kidney stones. Patient has history of recurrent kidney stones and states this one feels like it. Patient reports it is in the left flank region with some radiation to the left side of the groin. Patient reports after she was discharged yesterday, she was not able to take any of her pain medication due to continued nausea and vomiting. She also attempted to take the ODT Zofran with no success. States that now she continues to be nauseous and is in pain in the same time. She denies any urinary or vaginal symptoms. Denies hematuria, hematochezia or melena. Denies night sweats. Chills. Denies chest pain shortness of breath. - Related Data Previous Rx's Medication Instructions Recorded Metoclopramide [Reglan] 10 mg PO TID PRN #15 tab 02/27/20 Naproxen [EC-Naprosyn] 500 mg PO BID PRN #30 tablet. 02/27/20 Ondansetron [Zofran ODT] 4 mg PO Q8HR PRN #10 tab 02/27/20 Tamsulosin HCl [Flomax] 0.4 mg PO DAILY #7 cap 02/27/20 Allergies Allergy/AdvReac Type Severity Reaction Status Date / Time metoclopramide [From Reglan] AdvReac Mild Rapid Verified 02/27/20 15:12 Heart Rate prochlorperazine maleate AdvReac Rapid Verified 02/27/20 15:12 [From Compazine] Heart Rate Review of Systems ROS Statement: Those systems with pertinent positive or pertinent negative responses have been documented in the HPI. ROS Other: All systems not noted in ROS Statement are negative. Past Medical History Past Medical History: No Reported History Additional Past Medical History / Comment(s): COLITIS, uti's, kidney infections, interstitial cystitis, kidney stones, RECTAL BLEEDING History of Any Multi-Drug Resistant Organisms: None Reported Past Surgical History: Appendectomy, Cholecystectomy, Hysterectomy, Tubal Ligation Additional Past Surgical History / Comment(s): novasure ENDOMETRIAL ABLATION, COLONOSCOPY Past Anesthesia/Blood Transfusion Reactions: No Reported Reaction Past Psychological History: No Psychological Hx Reported Smoking Status: Never smoker Past Alcohol Use History: None Reported Past Drug Use History: Marijuana - Past Family History Father Family Medical History: No Reported History Mother Family Medical History: Cancer Additional Family Medical History / Comment(s): COLON CANCER General Exam Limitations: no limitations General appearance: alert, in no apparent distress Head exam: Present: atraumatic, normocephalic, normal inspection Eye exam: Present: normal appearance, PERRL, EOMI Pupils: Present: normal accommodation ENT exam: Present: normal exam, normal oropharynx, mucous membranes moist, TM's normal bilaterally, normal external ear exam Neck exam: Present: normal inspection, full ROM. Absent: tenderness Respiratory exam: Present: normal lung sounds bilaterally. Absent: respiratory distress, wheezes, rales Cardiovascular Exam: Present: regular rate, normal rhythm, normal heart sounds. Absent: systolic murmur, diastolic murmur GI/Abdominal exam: Present: soft, tenderness (Tenderness to the left side of the abdomen, left flank.). Absent: distended, guarding, rebound, rigid Extremities exam: Present: normal inspection, full ROM, normal capillary refill. Absent: tenderness, pedal edema, joint swelling, calf tenderness Back exam: Present: normal inspection, full ROM, CVA tenderness (L). Absent: tenderness, CVA tenderness (R) Neurological exam: Present: alert, oriented X3 Psychiatric exam: Present: normal affect, normal mood Skin exam: Present: warm, dry, intact, normal color Course Vital Signs 02/27/20 15:10 Temperature 98.6 F Pulse Rate 88 Respiratory 18 Rate Blood Pressure 135/65 O2 Sat by Pulse 99 Oximetry Medical Decision Making - Medical Decision Making 34-year-old female presenting to the emergency department with chief complaint of kidney stones. On physical examination, patient has left CVA tenderness and flank pain. CBC is unremarkable. UA shows no signs urinary tract infection but does reveal small amounts of red blood cells and blood. Patient was given IV fluids, analgesia and Reglan with Benadryl. Patient reports the Reglan appears to be working much better than the Zofran. Patient was discharged with Reglan advised to take it with Benadryl to prevent any side effects. Shared decision making was discussed with patient regarding imaging, she declined. Patient was advised to follow with urologist. Strict return parameters were thoroughly discussed the patient was understanding and agreeable. Case discussed with physician. - Lab Data Result diagrams: 02/27/20 16:07 02/27/20 16:07 Lab Results 02/27/20 02/27/20 02/27/20 Range/Units 16:07 16:07 16:07 WBC 8.9 (3.8-10.6) k/uL RBC 3.94 (3.80-5.40) m/uL Hgb 12.4 (11.4-16.0) gm/dL Hct 37.3 (34.0-46.0) % MCV 94.6 (80.0-100.0) fL MCH 31.4 (25.0-35.0) pg MCHC 33.2 (31.0-37.0) g/dL RDW 12.1 (11.5-15.5) % Plt Count 320 (150-450) k/uL MPV 6.9 Neutrophils % 61 % Lymphocytes % 30 % Monocytes % 5 % Eosinophils % 3 % Basophils % 1 % Neutrophils # 5.4 (1.3-7.7) k/uL Lymphocytes # 2.7 (1.0-4.8) k/uL Monocytes # 0.4 (0-1.0) k/uL Eosinophils # 0.2 (0-0.7) k/uL Basophils # 0.0 (0-0.2) k/uL Sodium 138 (137-145) mmol/L Potassium 4.0 (3.5-5.1) mmol/L Chloride 107 (98-107) mmol/L Carbon Dioxide 26 (22-30) mmol/L Anion Gap 5 mmol/L BUN 11 (7-17) mg/dL Creatinine 0.72 (0.52-1.04) mg/dL Est GFR (CKD-EPI)AfAm >90 (>60 ml/min/1.73 sqM) Est GFR (CKD-EPI)NonAf >90 (>60 ml/min/1.73 sqM) Glucose 94 (74-99) mg/dL Calcium 9.2 (8.4-10.2) mg/dL Total Bilirubin 0.6 (0.2-1.3) mg/dL AST 18 (14-36) U/L ALT 12 (4-34) U/L Alkaline Phosphatase 56 (38-126) U/L Total Protein 7.2 (6.3-8.2) g/dL Albumin 4.5 (3.5-5.0) g/dL Lipase 75 (23-300) U/L Urine Color Yellow Urine Appearance Cloudy H (Clear) Urine pH 6.5 (5.0-8.0) Ur Specific [place] 1.017 (1.001-1.035) Urine Protein Negative (Negative) Urine Glucose (UA) Negative (Negative) Urine Ketones Negative (Negative) Urine Blood Small H (Negative) Urine Nitrite Negative (Negative) Urine Bilirubin Negative (Negative) Urine Urobilinogen <2.0 (<2.0) mg/dL Ur Leukocyte Esterase Negative (Negative) Urine RBC 7 H (0-5) /hpf Urine WBC 4 (0-5) /hpf Ur Squamous Epith Cells 8 H (0-4) /hpf Urine Mucus Moderate H (None) /hpf Disposition Clinical Impression: Nausea & vomiting, Abdominal pain Disposition: HOME SELF-CARE Condition: Stable Instructions (If sedation given, give patient instructions): Abdominal Pain (ED) Additional Instructions: Take prescribed medication as directed. Follow up with your urologist. Return to emergency department if symptoms worsen. Prescriptions: Metoclopramide [Reglan] 10 mg PO TID PRN #15 tab PRN Reason: GERD Is patient prescribed a controlled substance at d/c from ED?: No Referrals: Mara Jack MD [Primary Care Provider] - 1-2 days Time of Disposition: 18:11
[2020-02-27] MEDS ORDERED: ONDANSETRON 4 MG/2 ML VIAL IVP STA (15:45)
[2020-02-27] MEDS ORDERED: SODIUM CHLORIDE 0.9% 1,000 ML IV STA (15:45)
[2020-02-27] MEDS ORDERED: KETOROLAC 15 MG/ML 1 ML VIAL IVP STA (15:45)
[2020-02-27 16:33] LABS: Basophils % (A) 1 %; Eosinophils # (A) 0.2 k/uL (0-0.7); Eosinophils % (A) 3 %; HCT 37.3 % (34.0-46.0); HGB 12.4 gm/dL (11.4-16.0); Lymphocytes # (A) 2.7 k/uL (1.0-4.8); Lymphocytes % (A) 30 %; MCH 31.4 pg (25.0-35.0); MCHC 33.2 g/dL (31.0-37.0); MCV 94.6 fL (80.0-100.0); Mean Platelet Volume 6.9; Monocytes # (A) 0.4 k/uL (0-1.0); Monocytes % (A) 5 %; Neutrophils # (A) 5.4 k/uL (1.3-7.7); Neutrophils % (A) 61 %; Platelet Count 320 k/uL (150-450); RBC 3.94 m/uL (3.80-5.40); RDW 12.1 % (11.5-15.5); WBC 8.9 k/uL (3.8-10.6)
[2020-02-27 16:40] LABS: ALT 12 U/L (4-34); AST 18 U/L (14-36); African American GFR (CKD) >90 (>60 ml/min/1.73 sqM); Albumin 4.5 g/dL (3.5-5.0); Alkaline Phosphatase 56 U/L (38-126); Anion Gap 5 mmol/L; Blood Urea Nitrogen 11 mg/dL (7-17); Calcium 9.2 mg/dL (8.4-10.2); Carbon Dioxide 26 mmol/L (22-30); Chloride 107 mmol/L (98-107); Glucose 94 mg/dL (74-99); Lipase 75 U/L (23-300); Non-African American GFR(CKD) >90 (>60 ml/min/1.73 sqM); Sodium 138 mmol/L (137-145); Total Bilirubin 0.6 mg/dL (0.2-1.3); Total Protein 7.2 g/dL (6.3-8.2)
[2020-02-27 16:43] LABS: Appearance,Urine Cloudy (Clear); Bilirubin,Urine Negative (Negative); Blood,Urine Small (Negative); Color,Urine Yellow; Glucose,Urine (UA) Negative (Negative); Ketones,Urine Negative (Negative); Leukocyte Esterase,Urine Negative (Negative); Mucus,Urine Moderate /hpf; Nitrite,Urine Negative (Negative); PH, Urine 6.5 (5.0-8.0); Protein,Urine Negative (Negative); RBC,Urine 7 /hpf (0-5); Specific Gravity,Urine 1.017 (1.001-1.035); Squamous Epithelial Cell,Urine 8 /hpf (0-4); Urobilinogen,Urine <2.0 mg/dL (<2.0); WBC,Urine 4 /hpf (0-5)
[2020-02-27] MEDS ORDERED: METOCLOPRAMIDE 5 MG/ML 2 ML VIAL IVP STA (17:19)
[2020-02-27] MEDS ORDERED: HYDROmorphone 1 MG/ML 1 ML SYRINGE IVP STA (17:19)
[2020-02-27] MEDS ORDERED: diphenhydrAMINE 50 MG/ML 1 ML VIAL IVP STA (17:20)
[2020-02-27] MEDS ORDERED: ACET/COD 300 MG/30 MG STARTER PACK 6 TAB BTL PO STA (18:11)
== END 2020-02-27 18:34 | disposition home or self-care (01) ==
LOC: EC 15:04
DX: R10.9 Unspecified abdominal pain (principal); R11.2 Nausea with vomiting, unspecified; Z88.8 Allergy status to other drugs, medicaments and biological substances; Z87.440 Personal history of urinary (tract) infections; Z87.442 Personal history of urinary calculi; Z90.49 Acquired absence of other specified parts of digestive tract; Z90.89 Acquired absence of other organs; Z90.710 Acquired absence of both cervix and uterus; Z98.51 Tubal ligation status
CPT/HCPCS: 36415; 80053; 83690; 85025; 81001; 99284; 96374; 96375 ×4; 96361; J1200; J2765; J2405; J1170; J1885

== ENCOUNTER → 2020-02-28 | Outpatient (CLI) | payer OTHER ==
[~2020-02-28] MED LIST changes: +AZITHROMYCIN 500 MG TAB PO STA; -LACTATED RINGERS 1,000 ML IV SCH; +cefTRIAXone 250 MG VIAL IM STA
== END | disposition home or self-care (01) ==
LOC: LABMAIN 12:28
PROVIDERS: ATTEND Emergency Medicine
DX: R31.9 Hematuria, unspecified (principal); R10.9 Unspecified abdominal pain

== ENCOUNTER 2020-04-18 10:19 | Emergency (ER) | payer OTHER ==
[2020-04-18] MEDS ORDERED: diphenhydrAMINE 50 MG/ML 1 ML VIAL IVP STA (10:34)
[2020-04-18] MEDS ORDERED: METOCLOPRAMIDE 5 MG/ML 2 ML VIAL IVP STA (10:34)
[2020-04-18] MEDS ORDERED: SODIUM CHLORIDE 0.9% 1,000 ML IV STA (10:34)
[2020-04-18] MEDS ORDERED: KETOROLAC 15 MG/ML 1 ML VIAL IVP STA (10:34)
[2020-04-18] MEDS ORDERED: PANTOPRAZOLE 40 MG/10 ML VIAL IVP STA (10:34)
--- NOTE | 2020-04-18 10:38 | ED ---
Abdominal Pain HPI - General Chief Complaint: Abdominal Pain Stated Complaint: Vomiting Time Seen by Provider: 04/18/20 10:25 Source: patient Mode of arrival: ambulatory Limitations: no limitations - History of Present Illness Initial Comments: patient is a 35-year-old female presenting to the emergency Department with complaints of suprapubic pain, dysuria and vomiting that started yesterday. Patient states she recently had a Pap smear in [employer] visit 4 days ago and her results were normal, she did have a STD screen which was all negative. Patient does have a history of kidney stones and vomiting with it but she states this feels slightly different. She states the dysuria has been increasing over the past 24 hours. She denies any fever or chills, no chest pain or shortness of breath. She has history of appendectomy, cholecystectomy and hysterectomy. The pain in her abdomen is mostly suprapubic and she does have a little bit of left-sided discomfort. Patient states she is unable to keep any medicines down. She has no further complaints at this time. Upon arrival to the ER, her vital signs are stable. - Related Data Previous Rx's Medication Instructions Recorded Cephalexin [Keflex] 500 mg PO BID 5 Days #10 cap 04/18/20 Ondansetron Odt [Zofran Odt] 4 mg PO Q8HR PRN #10 tab 04/18/20 Allergies Allergy/AdvReac Type Severity Reaction Status Date / Time metoclopramide [From Reglan] AdvReac Mild Rapid Verified 04/18/20 11:08 Heart Rate prochlorperazine maleate AdvReac Rapid Verified 04/18/20 11:08 [From Compazine] Heart Rate Review of Systems ROS Statement: Those systems with pertinent positive or pertinent negative responses have been documented in the HPI. ROS Other: All systems not noted in ROS Statement are negative. Past Medical History Past Medical History: No Reported History Additional Past Medical History / Comment(s): COLITIS, uti's, kidney infections, interstitial cystitis, kidney stones, RECTAL BLEEDING History of Any Multi-Drug Resistant Organisms: None Reported Past Surgical History: Appendectomy, Cholecystectomy, Hysterectomy, Tubal Ligation Additional Past Surgical History / Comment(s): novasure ENDOMETRIAL ABLATION, COLONOSCOPY Past Anesthesia/Blood Transfusion Reactions: No Reported Reaction Past Psychological History: No Psychological Hx Reported Smoking Status: Never smoker Past Alcohol Use History: None Reported Past Drug Use History: Marijuana - Past Family History Father Family Medical History: No Reported History Mother Family Medical History: Cancer Additional Family Medical History / Comment(s): COLON CANCER General Exam - General Exam Comments Initial Comments: GENERAL: Patient is well-developed and well-nourished. Patient is nontoxic and in no acute distress. HEAD: Atraumatic, normocephalic. EYES: Pupils equal round and reactive to light, extraocular movements intact, sclera anicteric, conjunctiva are normal. Eyelids were unremarkable. ENT: TMs normal, nares patent, oropharynx clear without exudates. Moist mucous membranes. NECK: Normal range of motion, supple without lymphadenopathy or JVD. LUNGS: Unlabored respirations. Breath sounds clear to auscultation bilaterally and equal. No wheezes rales or rhonchi. HEART: Regular rate and rhythm without murmurs, rubs or gallops. ABDOMEN: suprapubic discomfort on palpation, mild left-sided discomfort as well. Soft, normoactive bowel sounds. No guarding, no rebound. No masses appreciated. : Deferred MUSCULOSKELETAL: Normal extremities with adequate strength and normal range of motion, no pitting or edema. No clubbing or cyanosis. NEUROLOGICAL: Patient is alert and oriented x 3. Motor and sensory are also intact. Cranial nerves II through XII grossly intact. Symmetrical smile. Normal speech, normal gait. PSYCH: Normal mood, normal affect. SKIN: Warm, Dry, normal turgor, no rashes or lesions noted. Limitations: no limitations Course Vital Signs 04/18/20 10:22 Temperature 98.3 F Pulse Rate 88 Respiratory 16 Rate Blood Pressure 113/79 O2 Sat by Pulse 97 Oximetry Medical Decision Making - Medical Decision Making patient is a 35-year-old female here for suprapubic pain, dysuria and vomiting that started yesterday. Her vitals are stable, she is afebrile. Patient is in no acute distress, no active vomiting. Patient has been to the ER a lot for similar symptoms. She recently had a Pap smear 4 days ago which were all normal including STD screen. Patient's lab work is unremarkable, lactic acid is normal, lipase is normal, urine does have a small amount of blood, rare bacteria. Patient was given fluids, pain control. She's had no active vomiting in the ER. I did order an ultrasound which shows no acute process, no signs of ovarian torsion. Patient does have history of interstitial cystitis. I will start her on Keflex. I recommended following up with Dr. Evans who she seen in the past. Patient is stable for discharge. Patient is in agreement with this plan of care. Return parameters were discussed with the patient and they verbalized understanding. Case discussed with Dr. Rolon. - Lab Data Result diagrams: 04/18/20 10:42 04/18/20 10:42 Lab Results 04/18/20 04/18/20 04/18/20 Range/Units 10:42 10:42 10:42 WBC 7.9 (3.8-10.6) k/uL RBC 4.27 (3.80-5.40) m/uL Hgb 13.7 (11.4-16.0) gm/dL Hct 41.0 (34.0-46.0) % MCV 96.1 (80.0-100.0) fL MCH 32.2 (25.0-35.0) pg MCHC 33.5 (31.0-37.0) g/dL RDW 11.8 (11.5-15.5) % Plt Count 344 (150-450) k/uL MPV 6.6 Neutrophils % 45 % Lymphocytes % 43 % Monocytes % 6 % Eosinophils % 3 % Basophils % 1 % Neutrophils # 3.5 (1.3-7.7) k/uL Lymphocytes # 3.4 (1.0-4.8) k/uL Monocytes # 0.5 (0-1.0) k/uL Eosinophils # 0.2 (0-0.7) k/uL Basophils # 0.1 (0-0.2) k/uL Sodium 137 (137-145) mmol/L Potassium 4.2 (3.5-5.1) mmol/L Chloride 104 (98-107) mmol/L Carbon Dioxide 28 (22-30) mmol/L Anion Gap 5 mmol/L BUN 15 (7-17) mg/dL Creatinine 0.72 (0.52-1.04) mg/dL Est GFR (CKD-EPI)AfAm >90 (>60 ml/min/1.73 sqM) Est GFR (CKD-EPI)NonAf >90 (>60 ml/min/1.73 sqM) Glucose 84 (74-99) mg/dL Plasma Lactic Acid Kevin (0.7-2.0) mmol/L Calcium 9.3 (8.4-10.2) mg/dL Total Bilirubin 0.6 (0.2-1.3) mg/dL AST 18 (14-36) U/L ALT 12 (4-34) U/L Alkaline Phosphatase 53 (38-126) U/L Total Protein 7.7 (6.3-8.2) g/dL Albumin 4.6 (3.5-5.0) g/dL Lipase 133 (23-300) U/L Urine Color Yellow Urine Appearance Cloudy H (Clear) Urine pH 6.5 (5.0-8.0) Ur Specific [place] 1.026 (1.001-1.035) Urine Protein Trace H (Negative) Urine Glucose (UA) Negative (Negative) Urine Ketones Negative (Negative) Urine Blood Small H (Negative) Urine Nitrite Negative (Negative) Urine Bilirubin Negative (Negative) Urine Urobilinogen <2.0 (<2.0) mg/dL Ur Leukocyte Esterase Negative (Negative) Urine RBC 4 (0-5) /hpf Urine WBC 1 (0-5) /hpf Ur Squamous Epith Cells 5 H (0-4) /hpf Urine Bacteria Rare H (None) /hpf Urine Mucus Rare H (None) /hpf 04/18/20 Range/Units 10:42 WBC (3.8-10.6) k/uL RBC (3.80-5.40) m/uL Hgb (11.4-16.0) gm/dL Hct (34.0-46.0) % MCV (80.0-100.0) fL MCH (25.0-35.0) pg MCHC (31.0-37.0) g/dL RDW (11.5-15.5) % Plt Count (150-450) k/uL MPV Neutrophils % % Lymphocytes % % Monocytes % % Eosinophils % % Basophils % % Neutrophils # (1.3-7.7) k/uL Lymphocytes # (1.0-4.8) k/uL Monocytes # (0-1.0) k/uL Eosinophils # (0-0.7) k/uL Basophils # (0-0.2) k/uL Sodium (137-145) mmol/L Potassium (3.5-5.1) mmol/L Chloride (98-107) mmol/L Carbon Dioxide (22-30) mmol/L Anion Gap mmol/L BUN (7-17) mg/dL Creatinine (0.52-1.04) mg/dL Est GFR (CKD-EPI)AfAm (>60 ml/min/1.73 sqM) Est GFR (CKD-EPI)NonAf (>60 ml/min/1.73 sqM) Glucose (74-99) mg/dL Plasma Lactic Acid Kevin 0.6 L (0.7-2.0) mmol/L Calcium (8.4-10.2) mg/dL Total Bilirubin (0.2-1.3) mg/dL AST (14-36) U/L ALT (4-34) U/L Alkaline Phosphatase (38-126) U/L Total Protein (6.3-8.2) g/dL Albumin (3.5-5.0) g/dL Lipase (23-300) U/L Urine Color Urine Appearance (Clear) Urine pH (5.0-8.0) Ur Specific [place] (1.001-1.035) Urine Protein (Negative) Urine Glucose (UA) (Negative) Urine Ketones (Negative) Urine Blood (Negative) Urine Nitrite (Negative) Urine Bilirubin (Negative) Urine Urobilinogen (<2.0) mg/dL Ur Leukocyte Esterase (Negative) Urine RBC (0-5) /hpf Urine WBC (0-5) /hpf Ur Squamous Epith Cells (0-4) /hpf Urine Bacteria (None) /hpf Urine Mucus (None) /hpf Disposition Clinical Impression: Dysuria, Suprapubic pain Disposition: HOME SELF-CARE Condition: Stable Instructions (If sedation given, give patient instructions): Dysuria (ED) Additional Instructions: Please return to the Emergency Department if symptoms worsen or any other concerns. Take antibiotic as prescribed. May use Zofran for any additional nausea. Please follow up with urologist as discussed. Prescriptions: Cephalexin [Keflex] 500 mg PO BID 5 Days #10 cap Ondansetron Odt [Zofran Odt] 4 mg PO Q8HR PRN #10 tab PRN Reason: Nausea Is patient prescribed a controlled substance at d/c from ED?: No Referrals: Mara Jack MD [Primary Care Provider] - 1-2 days Kumar Evans MD [STAFF PHYSICIAN] - 1-2 days
[2020-04-18 10:56] LABS: Basophils # (A) 0.1 k/uL (0-0.2); Basophils % (A) 1 %; Eosinophils # (A) 0.2 k/uL (0-0.7); Eosinophils % (A) 3 %; HGB 13.7 gm/dL (11.4-16.0); Lymphocytes # (A) 3.4 k/uL (1.0-4.8); Lymphocytes % (A) 43 %; MCH 32.2 pg (25.0-35.0); MCHC 33.5 g/dL (31.0-37.0); MCV 96.1 fL (80.0-100.0); Mean Platelet Volume 6.6; Monocytes # (A) 0.5 k/uL (0-1.0); Monocytes % (A) 6 %; Neutrophils # (A) 3.5 k/uL (1.3-7.7); Neutrophils % (A) 45 %; Platelet Count 344 k/uL (150-450); RBC 4.27 m/uL (3.80-5.40); RDW 11.8 % (11.5-15.5); WBC 7.9 k/uL (3.8-10.6)
[2020-04-18 10:57] LABS: Appearance,Urine Cloudy (Clear); Bacteria,Urine Rare /hpf; Bilirubin,Urine Negative (Negative); Blood,Urine Small (Negative); Color,Urine Yellow; Glucose,Urine (UA) Negative (Negative); Ketones,Urine Negative (Negative); Leukocyte Esterase,Urine Negative (Negative); Mucus,Urine Rare /hpf; Nitrite,Urine Negative (Negative); PH, Urine 6.5 (5.0-8.0); Protein,Urine Trace (Negative); RBC,Urine 4 /hpf (0-5); Specific Gravity,Urine 1.026 (1.001-1.035); Squamous Epithelial Cell,Urine 5 /hpf (0-4); Urobilinogen,Urine <2.0 mg/dL (<2.0); WBC,Urine 1 /hpf (0-5)
[2020-04-18 11:04] LABS: ALT 12 U/L (4-34); AST 18 U/L (14-36); African American GFR (CKD) >90 (>60 ml/min/1.73 sqM); Albumin 4.6 g/dL (3.5-5.0); Alkaline Phosphatase 53 U/L (38-126); Anion Gap 5 mmol/L; Blood Urea Nitrogen 15 mg/dL (7-17); Calcium 9.3 mg/dL (8.4-10.2); Carbon Dioxide 28 mmol/L (22-30); Chloride 104 mmol/L (98-107); Glucose 84 mg/dL (74-99); Lipase 133 U/L (23-300); Non-African American GFR(CKD) >90 (>60 ml/min/1.73 sqM); Potassium 4.2 mmol/L (3.5-5.1); Sodium 137 mmol/L (137-145); Total Bilirubin 0.6 mg/dL (0.2-1.3); Total Protein 7.7 g/dL (6.3-8.2)
--- NOTE | 2020-04-18 12:06 | US ---
EXAMINATION TYPE: US transvaginal DATE OF EXAM: 04/18/2020 COMPARISON: NONE CLINICAL HISTORY: suprapubic pain. Pain partial hysterectomy TECHNIQUE: Transvaginal (TV). EXAM MEASUREMENTS: Uterus: Surgically absent Endometrial Stripe: Surgically absent Right Ovary: 2.1 x 1.6 x 1.6 cm Left Ovary: 3.3 x 2.5 x 1.9 cm 1. Uterus: Surgically absent 2. Endometrium: Surgically absent 3. Right Ovary: Surgically absent 4. Left Ovary: Complex area seen 1.8 x 1.2 x 1.1 cm Spectral, color and waveform doppler imaging shows arterial and venous flow within the ovaries. 5. Bilateral Adnexa: wnl 6. Posterior cul-de-sac: wnl IMPRESSION: Post hysterectomy. Involuting follicle likely associated with the left ovary
[2020-04-18 12:25] VITALS: BP 98/59; PULSE 86; RESP 18; TEMP 98.5
== END 2020-04-18 12:24 | disposition home or self-care (01) ==
LOC: EC 10:19
DX: R10.30 Lower abdominal pain, unspecified (principal); R30.0 Dysuria; Z88.8 Allergy status to other drugs, medicaments and biological substances; Z90.49 Acquired absence of other specified parts of digestive tract; Z90.710 Acquired absence of both cervix and uterus; Z98.51 Tubal ligation status; Z80.0 Family history of malignant neoplasm of digestive organs
CPT/HCPCS: 36415; 80053; 83605; 83690; 85025; 81001; 76830; 93975; 99284; 96374; 96375 ×3; 96361; J1200; J2765; J1885; C9113

== ENCOUNTER 2020-06-11 19:04 | Emergency (ER) | payer OTHER ==
[2020-06-11 20:48] LABS: Appearance,Urine Clear (Clear); Bilirubin,Urine Negative (Negative); Blood,Urine Trace (Negative); Color,Urine Light Yellow; Glucose,Urine (UA) Negative (Negative); Ketones,Urine Negative (Negative); Leukocyte Esterase,Urine Negative (Negative); Mucus,Urine Rare /hpf; Nitrite,Urine Negative (Negative); Protein,Urine Negative (Negative); RBC,Urine 3 /hpf (0-5); Specific Gravity,Urine 1.018 (1.001-1.035); Squamous Epithelial Cell,Urine 7 /hpf (0-4); Urobilinogen,Urine <2.0 mg/dL (<2.0); WBC,Urine 5 /hpf (0-5)
[2020-06-11 20:56] LABS: Basophils # (A) 0.1 k/uL (0-0.2); Basophils % (A) 1 %; Eosinophils # (A) 0.2 k/uL (0-0.7); Eosinophils % (A) 2 %; HCT 38.8 % (34.0-46.0); HGB 13.4 gm/dL (11.4-16.0); Lymphocytes # (A) 3.1 k/uL (1.0-4.8); Lymphocytes % (A) 31 %; MCHC 34.6 g/dL (31.0-37.0); MCV 95.4 fL (80.0-100.0); Monocytes # (A) 0.5 k/uL (0-1.0); Monocytes % (A) 5 %; Neutrophils % (A) 60 %; Platelet Count 298 k/uL (150-450); RBC 4.07 m/uL (3.80-5.40); RDW 11.5 % (11.5-15.5); WBC 10.1 k/uL (3.8-10.6)
[2020-06-11 21:14] LABS: ALT 14 U/L (4-34); AST 20 U/L (14-36); African American GFR (CKD) >90 (>60 ml/min/1.73 sqM); Albumin 4.7 g/dL (3.5-5.0); Alkaline Phosphatase 64 U/L (38-126); Amylase 85 U/L (30-110); Anion Gap 7 mmol/L; Blood Urea Nitrogen 11 mg/dL (7-17); Calcium 9.6 mg/dL (8.4-10.2); Carbon Dioxide 23 mmol/L (22-30); Chloride 105 mmol/L (98-107); Glucose 90 mg/dL (74-99); Lipase 91 U/L (23-300); Non-African American GFR(CKD) >90 (>60 ml/min/1.73 sqM); Sodium 135 mmol/L (137-145); Total Bilirubin 0.4 mg/dL (0.2-1.3); Total Protein 7.5 g/dL (6.3-8.2)
[2020-06-11] MEDS ORDERED: MORPHINE SULFATE 4 MG/ML SYRINGE IVP STA (22:31)
[2020-06-11] MEDS ORDERED: ONDANSETRON 4 MG/2 ML VIAL IVP STA (22:31)
[2020-06-11] MEDS ORDERED: SODIUM CHLORIDE 0.9% 1,000 ML IV STA (22:31)
--- NOTE | 2020-06-11 22:31 | ED ---
Abdominal Pain HPI - General Chief Complaint: Abdominal Pain Stated Complaint: dizziness/nausea/vomiting Time Seen by Provider: 06/11/20 22:18 Source: patient, RN notes reviewed Mode of arrival: ambulatory Limitations: no limitations - History of Present Illness Initial Comments: Patient is a 35-year-old female that presents to emergency, complaining of right-sided abdominal pain nausea and vomiting for the past several days. She notes that she has vomited at least 3 times since being here. She notes that she has not eaten anything strange or spoiled over the last several days. She states that she is in some moderate constant pain that is unrelieved with anything at home. She states that she has had difficulties trying to Keep anything down and that she has been trying to drink Powerade to stay hydrated but is having difficulties. She states she's had some diarrhea. She does have a history of colitis, kidney stones, kidney infections. She denied any chest pain shortness of breath headache constipation fever fatigue chills. - Related Data Previous Rx's Medication Instructions Recorded Cephalexin [Keflex] 500 mg PO BID 5 Days #10 cap 04/18/20 Ondansetron Odt [Zofran Odt] 4 mg PO Q8HR PRN #10 tab 04/18/20 Allergies Allergy/AdvReac Type Severity Reaction Status Date / Time metoclopramide [From Reglan] AdvReac Mild Rapid Verified 06/11/20 20:37 Heart Rate prochlorperazine maleate AdvReac Rapid Verified 06/11/20 20:37 [From Compazine] Heart Rate Review of Systems ROS Statement: Those systems with pertinent positive or pertinent negative responses have been documented in the HPI. ROS Other: All systems not noted in ROS Statement are negative. Past Medical History Past Medical History: No Reported History Additional Past Medical History / Comment(s): COLITIS, uti's, kidney infections, interstitial cystitis, kidney stones, RECTAL BLEEDING History of Any Multi-Drug Resistant Organisms: None Reported Past Surgical History: Appendectomy, Cholecystectomy, Hysterectomy, Tubal Ligation Additional Past Surgical History / Comment(s): novasure ENDOMETRIAL ABLATION, COLONOSCOPY Past Anesthesia/Blood Transfusion Reactions: No Reported Reaction Past Psychological History: No Psychological Hx Reported Smoking Status: Never smoker Past Alcohol Use History: None Reported Past Drug Use History: Marijuana - Past Family History Father Family Medical History: No Reported History Mother Family Medical History: Cancer Additional Family Medical History / Comment(s): COLON CANCER General Exam Limitations: no limitations General appearance: alert, in no apparent distress Head exam: Present: atraumatic, normocephalic, normal inspection Eye exam: Present: normal appearance, PERRL, EOMI. Absent: scleral icterus, conjunctival injection, periorbital swelling ENT exam: Present: normal exam, mucous membranes moist Neck exam: Present: normal inspection. Absent: tenderness, meningismus, lymphadenopathy Respiratory exam: Present: normal lung sounds bilaterally. Absent: respiratory distress, wheezes, rales, rhonchi, stridor Cardiovascular Exam: Present: regular rate, normal rhythm, normal heart sounds. Absent: systolic murmur, diastolic murmur, rubs, gallop, clicks GI/Abdominal exam: Present: soft, tenderness (Right upper quadrant, patient does not have gallbladder.), normal bowel sounds. Absent: distended, guarding, rebound, rigid Extremities exam: Present: normal inspection, full ROM, normal capillary refill. Absent: tenderness, pedal edema, joint swelling, calf tenderness Neurological exam: Present: alert, oriented X3, CN II-XII intact Psychiatric exam: Present: normal affect, normal mood Course Vital Signs 06/11/20 20:34 Temperature 98.9 F Pulse Rate 84 Respiratory 20 Rate Blood Pressure 121/78 O2 Sat by Pulse 99 Oximetry Medical Decision Making - Medical Decision Making 35-year-old female complaining of nausea vomiting and some abdominal pain. Labs, KUB, 4 mg of Zofran, 4 mg of morphine ordered. 1 L normal saline ordered. X-ray negative. Case discussed with Dr. Baker, patient can discharge home. - Lab Data Result diagrams: 06/11/20 20:48 06/11/20 20:48 Lab Results 06/11/20 06/11/20 06/11/20 Range/Units 20:39 20:48 20:48 WBC 10.1 (3.8-10.6) k/uL RBC 4.07 (3.80-5.40) m/uL Hgb 13.4 (11.4-16.0) gm/dL Hct 38.8 (34.0-46.0) % MCV 95.4 (80.0-100.0) fL MCH 33.0 (25.0-35.0) pg MCHC 34.6 (31.0-37.0) g/dL RDW 11.5 (11.5-15.5) % Plt Count 298 (150-450) k/uL MPV 7.0 Neutrophils % 60 % Lymphocytes % 31 % Monocytes % 5 % Eosinophils % 2 % Basophils % 1 % Neutrophils # 6.0 (1.3-7.7) k/uL Lymphocytes # 3.1 (1.0-4.8) k/uL Monocytes # 0.5 (0-1.0) k/uL Eosinophils # 0.2 (0-0.7) k/uL Basophils # 0.1 (0-0.2) k/uL Sodium 135 L (137-145) mmol/L Potassium 4.0 (3.5-5.1) mmol/L Chloride 105 (98-107) mmol/L Carbon Dioxide 23 (22-30) mmol/L Anion Gap 7 mmol/L BUN 11 (7-17) mg/dL Creatinine 0.56 (0.52-1.04) mg/dL Est GFR (CKD-EPI)AfAm >90 (>60 ml/min/1.73 sqM) Est GFR (CKD-EPI)NonAf >90 (>60 ml/min/1.73 sqM) Glucose 90 (74-99) mg/dL Calcium 9.6 (8.4-10.2) mg/dL Total Bilirubin 0.4 (0.2-1.3) mg/dL AST 20 (14-36) U/L ALT 14 (4-34) U/L Alkaline Phosphatase 64 (38-126) U/L Total Protein 7.5 (6.3-8.2) g/dL Albumin 4.7 (3.5-5.0) g/dL Amylase 85 (30-110) U/L Lipase 91 (23-300) U/L Urine Color Light Yellow Urine Appearance Clear (Clear) Urine pH 6.0 (5.0-8.0) Ur Specific [place] 1.018 (1.001-1.035) Urine Protein Negative (Negative) Urine Glucose (UA) Negative (Negative) Urine Ketones Negative (Negative) Urine Blood Trace H (Negative) Urine Nitrite Negative (Negative) Urine Bilirubin Negative (Negative) Urine Urobilinogen <2.0 (<2.0) mg/dL Ur Leukocyte Esterase Negative (Negative) Urine RBC 3 (0-5) /hpf Urine WBC 5 (0-5) /hpf Ur Squamous Epith Cells 7 H (0-4) /hpf Urine Mucus Rare H (None) /hpf - Radiology Data Radiology results: report reviewed, image reviewed Nonacute abdomen. No adverse change. Disposition Clinical Impression: Gastroenteritis, Abdominal pain Disposition: HOME SELF-CARE Condition: Stable Instructions (If sedation given, give patient instructions): Abdominal Pain (ED) Additional Instructions: Please return to the Emergency Department if symptoms worsen or any other concerns. Is patient prescribed a controlled substance at d/c from ED?: No Referrals: Mara Jack MD [Primary Care Provider] - 1-2 days Time of Disposition: 23:30
--- NOTE | 2020-06-11 23:27 | XR ---
EXAMINATION TYPE: XR KUB portable DATE OF EXAM: 06/11/2020 COMPARISON: October 28, 2019 HISTORY: Abdominal pain TECHNIQUE: 2 views upright FINDINGS: There is no sign of intestinal obstruction or pneumoperitoneum. Fecal pattern is normal. Th ere is no evidence of a mass. There are no pathologic calcifications over the kidneys. There are clip s apparently from cholecystectomy. Lung bases are clear. Bony structures are intact. IMPRESSION: Nonacute abdomen. No adverse change.
[2020-06-11] MEDS ORDERED: ONDANSETRON 4 MG ODT STARTER PACK 2 TAB BTL PO STA (23:39)
[2020-06-12 00:02] VITALS: BP 105/68; PULSE 72; RESP 18; TEMP 98
== END 2020-06-12 00:10 | disposition home or self-care (01) ==
LOC: EC 19:04
DX: K52.9 Noninfective gastroenteritis and colitis, unspecified (principal); F12.90 Cannabis use, unspecified, uncomplicated
CPT/HCPCS: 36415; 80053; 82150; 83690; 85025; 81001; 74018; 99284; 96374; 96375; 96361; J2270; J2405; S0119

== ENCOUNTER 2020-07-30 14:44 | Emergency (ER) | payer OTHER ==
[2020-07-30 14:49] VITALS: TEMP 98.1
[2020-07-30 15:17] LABS: Appearance,Urine Clear (Clear); Bilirubin,Urine Negative (Negative); Blood,Urine Moderate (Negative); Color,Urine Yellow; Glucose,Urine (UA) Negative (Negative); Ketones,Urine Negative (Negative); Leukocyte Esterase,Urine Negative (Negative); Mucus,Urine Many /hpf; Nitrite,Urine Negative (Negative); Protein,Urine Trace (Negative); RBC,Urine 18 /hpf (0-5); Squamous Epithelial Cell,Urine 2 /hpf (0-4); Urobilinogen,Urine <2.0 mg/dL (<2.0); WBC,Urine 1 /hpf (0-5)
[2020-07-30] MEDS ORDERED: ONDANSETRON 4 MG/2 ML VIAL IVP STA (15:41)
[2020-07-30] MEDS ORDERED: SODIUM CHLORIDE 0.9% 1,000 ML IV STA (15:41)
[2020-07-30] MEDS ORDERED: KETOROLAC 15 MG/ML 1 ML VIAL IVP STA (15:41)
[2020-07-30 16:49] VITALS: BP 125/77; PULSE 97; RESP 18
--- NOTE | 2020-07-30 17:52 | ED ---
Nausea/Vomiting/Diarrhea HPI - General Chief complaint: Nausea/Vomiting/Diarrhea Stated complaint: vomiting, stomach pain Time Seen by Provider: 07/30/20 15:24 Source: patient Mode of arrival: ambulatory Limitations: no limitations - History of Present Illness Initial comments: Patient is a 35-year-old female, with history of interstitial cystitis, pres enting to the emergency Department with complaints of vomiting since about 2:30 this morning. She states she is having dysuria and is wondering if she has a UTI. She states she does not have anything for nausea at home and cannot stop vomiting. She is complaining of a little bit of lower abdominal discomfort. She states she sees Dr. Evans is her urologist but is not able to get an appointment until Tuesday. She denies any fevers or chills, she denies being . She denies any chest pain or short of breath. She has no further complaints at this time. Upon arrival to the ER her vitals are stable. - Related Data Previous Rx's Medication Instructions Recorded Ondansetron Odt [Zofran Odt] 4 mg PO Q8HR PRN #10 tab 07/30/20 Allergies Allergy/AdvReac Type Severity Reaction Status Date / Time metoclopramide [From Reglan] AdvReac Mild Rapid Verified 07/30/20 16:15 Heart Rate prochlorperazine maleate AdvReac Rapid Verified 07/30/20 16:15 [From Compazine] Heart Rate Review of Systems ROS Statement: Those systems with pertinent positive or pertinent negative responses have been documented in the HPI. ROS Other: All systems not noted in ROS Statement are negative. Past Medical History Past Medical History: No Reported History Additional Past Medical History / Comment(s): COLITIS, uti's, kidney infections, interstitial cystitis, kidney stones, RECTAL BLEEDING History of Any Multi-Drug Resistant Organisms: None Reported Past Surgical History: Appendectomy, Cholecystectomy, Hysterectomy, Tubal Lig ation Additional Past Surgical History / Comment(s): novasure ENDOMETRIAL ABLATION, COLONOSCOPY Past Anesthesia/Blood Transfusion Reactions: No Reported Reaction Past Psychological History: No Psychological Hx Reported Smoking Status: Never smoker Past Alcohol Use History: None Reported Past Drug Use History: Marijuana - Past Family History Father Family Medical History: No Reported History Mother Family Medical History: Cancer Additional Family Medical History / Comment(s): COLON CANCER General Exam - General Exam Comments Initial Comments: GENERAL: Patient is well-developed and well-nourished. Patient is nontoxic and in mild distress. HEAD: Atraumatic, normocephalic. EYES: Pupils equal round and reactive to light, extraocular movements intact, sclera anicteric, conjunctiva are normal. Eyelids were unremarkable. ENT: Nares patent, oropharynx clear without exudates. Moist mucous membranes. NECK: Normal range of motion, supple without lymphadenopathy or JVD. LUNGS: Unlabored respirations. Breath sounds clear to auscultation bilaterally and equal. No wheezes rales or rhonchi. HEART: Regular rate and rhythm without murmurs, rubs or gallops. ABDOMEN: Soft, mild suprapubic discomfort, no other areas of tenderness, normoactive bowel sounds. No guarding, no rebound. No masses appreciated. : Deferred MUSCULOSKELETAL: Normal extremities with adequate strength and normal range of motion, no pitting or edema. No clubbing or cyanosis. NEUROLOGICAL: Patient is alert and oriented x 3. Motor and sensory are also intact. Cranial nerves II through XII grossly intact. Symmetrical smile. Normal speech, normal gait. PSYCH: Normal mood, normal affect. SKIN: Warm, Dry, normal turgor, no rashes or lesions noted. Limitations: no limitations Course Vital Signs 07/30/20 07/30/20 14:46 16:49 Temperature 98.1 F Pulse Rate 98 97 Respiratory 16 18 Rate Blood Pressure 124/76 125/77 O2 Sat by Pulse 100 97 Oximetry Medical Decision Making - Medical Decision Making Patient is a 35-year-old female with history of interstitial cystitis, presenting for dysuria and vomiting 1 day. Her urine shows no evidence of bacteria or WBCs. She does have a little hematuria but this is normal for her. Patient was given some fluids, nausea meds, she feels improvement in her symptoms. She is stable for discharge. She'll follow up with her urologist on Tuesday. Return parameters were discussed with her and she verbalized understanding. Case discussed with Dr. landers. - Lab Data Lab Results 07/30/20 Range/Units 14:54 Urine Color Yellow Urine Appearance Clear (Clear) Urine pH 6.0 (5.0-8.0) Ur Specific [place] 1.030 (1.001-1.035) Urine Protein Trace H (Negative) Urine Glucose (UA) Negative (Negative) Urine Ketones Negative (Negative) Urine Blood Moderate H (Negative) Urine Nitrite Negative (Negative) Urine Bilirubin Negative (Negative) Urine Urobilinogen <2.0 (<2.0) mg/dL Ur Leukocyte Esterase Negative (Negative) Urine RBC 18 H (0-5) /hpf Urine WBC 1 (0-5) /hpf Ur Squamous Epith Cells 2 (0-4) /hpf Urine Mucus Many H (None) /hpf Disposition Clinical Impression: Nausea & vomiting Disposition: HOME SELF-CARE Condition: Stable Instructions (If sedation given, give patient instructions): Acute Nausea and Vomiting (ED) Additional Instructions: Please return to the Emergency Department if symptoms worsen or any other concerns. May use Zofran for any additional nausea. Follow up with your urologist. Prescriptions: Ondansetron Odt [Zofran Odt] 4 mg PO Q8HR PRN #10 tab PRN Reason: Nausea Is patient prescribed a controlled substance at d/c from ED?: No Referrals: Mara Jack MD [Primary Care Provider] - 1-2 days Time of Disposition: 17:51
== END 2020-07-30 18:18 | disposition home or self-care (01) ==
LOC: EC 14:44
DX: R11.2 Nausea with vomiting, unspecified (principal); R30.0 Dysuria; R10.30 Lower abdominal pain, unspecified; F12.90 Cannabis use, unspecified, uncomplicated; Z87.442 Personal history of urinary calculi; Z79.899 Other long term (current) drug therapy
CPT/HCPCS: 81001; 99284; 96374; 96375 ×2; 96361; J2405; J1885; J1790

== ENCOUNTER 2020-10-04 20:01 | Emergency (ER) | payer OTHER ==
[2020-10-04 20:20] VITALS: TEMP 98.3
[2020-10-04] MEDS ORDERED: SODIUM CHLORIDE 0.9% 1,000 ML IV STA (20:23)
[2020-10-04] MEDS ORDERED: ONDANSETRON 4 MG/2 ML VIAL IVP STA (20:23)
[2020-10-04] MEDS ORDERED: KETOROLAC 15 MG/ML 1 ML VIAL IVP STA (20:23)
--- NOTE | 2020-10-04 20:32 | ED ---
Abdominal Pain HPI - General Chief Complaint: Abdominal Pain Stated Complaint: vomiting Source: patient, RN notes reviewed, old records reviewed Mode of arrival: ambulatory - History of Present Illness Initial Comments: 35-year-old female, alert and oriented 4, sitting emergency room with complaints of dysuria and right flank pain that started at 4 AM. Patient states that she is also having nausea and vomiting. This all started at 4 AM. She is not had any relief and cannot get comfortable. She has a history of interstitial cystitis and sees Dr. Sherman. She occasionally has these flares of pain. She denies any fevers. No diarrhea. No hematuria but she does state that she has dysuria. MD Complaint: flank pain -: days(s) (Started at 4 AM) Location: R flank Radiation: none Severity: severe Severity scale (1-10): 10 Quality: sharp Consistency: constant Improves With: other (lying on the left side) Worsens With: vomiting, movement Context: other (History of interstitial cystitis and kidney stones) Associated Symptoms: nausea, vomiting, dysuria - Related Data Previous Rx's Medication Instructions Recorded Ondansetron Odt [Zofran Odt] 4 mg PO Q8HR PRN #10 tab 07/30/20 Famotidine [Pepcid] 20 mg PO DAILY 28 Days #28 tablet 10/04/20 Ibuprofen [Motrin] 600 mg PO Q8HR PRN #20 tab 10/04/20 diphenhydrAMINE [Benadryl] 50 mg PO TID 10 Days #30 capsule 10/04/20 Allergies Allergy/AdvReac Type Severity Reaction Status Date / Time metoclopramide [From Reglan] AdvReac Mild Rapid Verified 10/04/20 20:20 Heart Rate prochlorperazine maleate AdvReac Rapid Verified 10/04/20 20:20 [From Compazine] Heart Rate Review of Systems ROS Statement: Those systems with pertinent positive or pertinent negative responses have been documented in the HPI. ROS Other: All systems not noted in ROS Statement are negative. Past Medical History Past Medical History: No Reported History Additional Past Medical History / Comment(s): COLITIS, uti's, kidney infections, interstitial cystitis, kidney stones, RECTAL BLEEDING History of Any Multi-Drug Resistant Organisms: None Reported Past Surgical History: Appendectomy, Cholecystectomy, Hysterectomy, Tubal Ligation Additional Past Surgical History / Comment(s): novasure ENDOMETRIAL ABLATION, COLONOSCOPY Past Anesthesia/Blood Transfusion Reactions: No Reported Reaction Past Psychological History: No Psychological Hx Reported Smoking Status: Never smoker Past Alcohol Use History: None Reported Past Drug Use History: Marijuana - Past Family History Father Family Medical History: No Reported History Mother Family Medical History: Cancer Additional Family Medical History / Comment(s): COLON CANCER General Exam General appearance: alert, in no apparent distress Head exam: Present: atraumatic, normocephalic, normal inspection Eye exam: Present: normal appearance, PERRL, EOMI. Absent: scleral icterus, conjunctival injection, periorbital swelling ENT exam: Present: normal exam, normal oropharynx, mucous membranes moist Neck exam: Present: normal inspection, full ROM. Absent: tenderness, meningismus, lymphadenopathy, thyromegaly Respiratory exam: Present: normal lung sounds bilaterally. Absent: respiratory distress, wheezes, rales, rhonchi, stridor, chest wall tenderness, accessory muscle use, decreased breath sounds, prolonged expiratory Cardiovascular Exam: Present: regular rate, normal rhythm, normal heart sounds. Absent: systolic murmur, diastolic murmur, rubs, gallop, clicks Extremities exam: Present: normal inspection, full ROM, normal capillary refill. Absent: tenderness, pedal edema, joint swelling, calf tenderness Back exam: Present: normal inspection, full ROM, tenderness, CVA tenderness (R). Absent: CVA tenderness (L), muscle spasm, paraspinal tenderness, vertebral tenderness, rash noted Neurological exam: Present: alert, oriented X3, CN II-XII intact Psychiatric exam: Present: normal affect, normal mood Skin exam: Present: warm, dry, intact, normal color. Absent: rash, cyanosis, diaphoretic, erythema, petechiae, pallor, mottled Course Vital Signs 10/04/20 10/04/20 20:17 23:21 Temperature 98.3 F Pulse Rate 86 77 Respiratory 18 14 Rate Blood Pressure 125/81 99/59 O2 Sat by Pulse 100 Oximetry - Reevaluation(s) Reevaluation #1: 10/04/20 22:12 Patient continues to have headache, nausea and abdominal cramping. She states that compared on the past has made her feel very sick and does not want that. We will try Benadryl and Solu-Medrol Time: 22:12 Medical Decision Making - Medical Decision Making WBC count is 9.8, lipase is 310, UA shows small amount of blood but no ketones nitrates or leukocyte esterase. Her test is negative. CT the abdomen and pelvis without contrast shows no adverse changes compared to old exam dated August [id number]. There is no adrenal mass, kidneys are normal size with no hydronephrosis, ureter dilated and there is no evidence of renal calculi. patient is afebrile. This is likely the patient's interstitial cystitis. She was given Benadryl, Pepcid and Solu-Medrol with relief. She'll be discharged to follow up with her primary care doctor. Case discussed with Dr. Rodriguez - Lab Data Result diagrams: 10/04/20 20:35 10/04/20 20:35 Lab Results 10/04/20 10/04/20 10/04/20 Range/Units 20:35 20:35 20:35 WBC 9.8 (3.8-10.6) k/uL RBC 3.72 L (3.80-5.40) m/uL Hgb 12.3 (11.4-16.0) gm/dL Hct 36.3 (34.0-46.0) % MCV 97.7 (80.0-100.0) fL MCH 33.2 (25.0-35.0) pg MCHC 34.0 (31.0-37.0) g/dL RDW 12.4 (11.5-15.5) % Plt Count 373 (150-450) k/uL MPV 6.8 Neutrophils % 52 % Lymphocytes % 36 % Monocytes % 7 % Eosinophils % 3 % Basophils % 1 % Neutrophils # 5.0 (1.3-7.7) k/uL Lymphocytes # 3.5 (1.0-4.8) k/uL Monocytes # 0.6 (0-1.0) k/uL Eosinophils # 0.3 (0-0.7) k/uL Basophils # 0.1 (0-0.2) k/uL Sodium (137-145) mmol/L Potassium (3.5-5.1) mmol/L Chloride (98-107) mmol/L Carbon Dioxide (22-30) mmol/L Anion Gap mmol/L BUN (7-17) mg/dL Creatinine (0.52-1.04) mg/dL Est GFR (CKD-EPI)AfAm (>60 ml/min/1.73 sqM) Est GFR (CKD-EPI)NonAf (>60 ml/min/1.73 sqM) Glucose (74-99) mg/dL Calcium (8.4-10.2) mg/dL Total Bilirubin (0.2-1.3) mg/dL AST (14-36) U/L ALT (4-34) U/L Alkaline Phosphatase (38-126) U/L Total Protein (6.3-8.2) g/dL Albumin (3.5-5.0) g/dL Amylase (30-110) U/L Lipase (23-300) U/L Urine Color Yellow Urine Appearance Cloudy H (Clear) Urine pH 7.0 (5.0-8.0) Ur Specific [place] 1.019 (1.001-1.035) Urine Protein Negative (Negative) Urine Glucose (UA) Negative (Negative) Urine Ketones Negative (Negative) Urine Blood Small H (Negative) Urine Nitrite Negative (Negative) Urine Bilirubin Negative (Negative) Urine Urobilinogen <2.0 (<2.0) mg/dL Ur Leukocyte Esterase Negative (Negative) Urine RBC 5 (0-5) /hpf Urine WBC 2 (0-5) /hpf Ur Squamous Epith Cells 3 (0-4) /hpf Amorphous Sediment Occasional H (None) /hpf Urine Mucus Rare H (None) /hpf Urine HCG, Qual Not Detected (Not Detectd) 10/04/20 Range/Units 20:35 WBC (3.8-10.6) k/uL RBC (3.80-5.40) m/uL Hgb (11.4-16.0) gm/dL Hct (34.0-46.0) % MCV (80.0-100.0) fL MCH (25.0-35.0) pg MCHC (31.0-37.0) g/dL RDW (11.5-15.5) % Plt Count (150-450) k/uL MPV Neutrophils % % Lymphocytes % % Monocytes % % Eosinophils % % Basophils % % Neutrophils # (1.3-7.7) k/uL Lymphocytes # (1.0-4.8) k/uL Monocytes # (0-1.0) k/uL Eosinophils # (0-0.7) k/uL Basophils # (0-0.2) k/uL Sodium 139 (137-145) mmol/L Potassium 3.8 (3.5-5.1) mmol/L Chloride 103 (98-107) mmol/L Carbon Dioxide 29 (22-30) mmol/L Anion Gap 7 mmol/L BUN 11 (7-17) mg/dL Creatinine 0.67 (0.52-1.04) mg/dL Est GFR (CKD-EPI)AfAm >90 (>60 ml/min/1.73 sqM) Est GFR (CKD-EPI)NonAf >90 (>60 ml/min/1.73 sqM) Glucose 94 (74-99) mg/dL Calcium 9.6 (8.4-10.2) mg/dL Total Bilirubin 0.2 (0.2-1.3) mg/dL AST 20 (14-36) U/L ALT 12 (4-34) U/L Alkaline Phosphatase 68 (38-126) U/L Total Protein 7.0 (6.3-8.2) g/dL Albumin 4.4 (3.5-5.0) g/dL Amylase 102 (30-110) U/L Lipase 310 H (23-300) U/L Urine Color Urine Appearance (Clear) Urine pH (5.0-8.0) Ur Specific [place] (1.001-1.035) Urine Protein (Negative) Urine Glucose (UA) (Negative) Urine Ketones (Negative) Urine Blood (Negative) Urine Nitrite (Negative) Urine Bilirubin (Negative) Urine Urobilinogen (<2.0) mg/dL Ur Leukocyte Esterase (Negative) Urine RBC (0-5) /hpf Urine WBC (0-5) /hpf Ur Squamous Epith Cells (0-4) /hpf Amorphous Sediment (None) /hpf Urine Mucus (None) /hpf Urine HCG, Qual (Not Detectd) Disposition Clinical Impression: Chronic interstitial cystitis Disposition: HOME SELF-CARE Condition: Fair Instructions (If sedation given, give patient instructions): Interstitial Cystitis (ED) Additional Instructions: Take Benadryl, Motrin and Pepcid as directed. Follow-up with the primary care doctor in 1 week return if worsening symptoms or fever. Prescriptions: diphenhydrAMINE [Benadryl] 50 mg PO TID 10 Days #30 capsule Ibuprofen [Motrin] 600 mg PO Q8HR PRN #20 tab PRN Reason: Pain Famotidine [Pepcid] 20 mg PO DAILY 28 Days #28 tablet Is patient prescribed a controlled substance at d/c from ED?: No Referrals: Mara Jack MD [Primary Care Provider] - 1-2 days Time of Disposition: 22:54
[2020-10-04 20:56] LABS: Basophils # (A) 0.1 k/uL (0-0.2); Basophils % (A) 1 %; Eosinophils # (A) 0.3 k/uL (0-0.7); Eosinophils % (A) 3 %; HCT 36.3 % (34.0-46.0); HGB 12.3 gm/dL (11.4-16.0); Lymphocytes # (A) 3.5 k/uL (1.0-4.8); Lymphocytes % (A) 36 %; MCH 33.2 pg (25.0-35.0); MCV 97.7 fL (80.0-100.0); Mean Platelet Volume 6.8; Monocytes # (A) 0.6 k/uL (0-1.0); Monocytes % (A) 7 %; Neutrophils % (A) 52 %; Platelet Count 373 k/uL (150-450); RBC 3.72 m/uL (3.80-5.40); RDW 12.4 % (11.5-15.5); WBC 9.8 k/uL (3.8-10.6)
[2020-10-04 21:03] LABS: ALT 12 U/L (4-34); AST 20 U/L (14-36); African American GFR (CKD) >90 (>60 ml/min/1.73 sqM); Albumin 4.4 g/dL (3.5-5.0); Alkaline Phosphatase 68 U/L (38-126); Amylase 102 U/L (30-110); Anion Gap 7 mmol/L; Blood Urea Nitrogen 11 mg/dL (7-17); Calcium 9.6 mg/dL (8.4-10.2); Carbon Dioxide 29 mmol/L (22-30); Chloride 103 mmol/L (98-107); Glucose 94 mg/dL (74-99); Lipase 310 U/L (23-300); Non-African American GFR(CKD) >90 (>60 ml/min/1.73 sqM); Potassium 3.8 mmol/L (3.5-5.1); Sodium 139 mmol/L (137-145); Total Bilirubin 0.2 mg/dL (0.2-1.3)
--- NOTE | 2020-10-04 21:29 | CT ---
EXAMINATION TYPE: CT abdomen pelvis wo con DATE OF EXAM: 10/04/2020 COMPARISON: 08/02/2019 HISTORY: Right flank pain with history of interstitial cystitis and kidney stones. CT DLP: 485.5 mGycm Automated exposure control for dose reduction was used. Images obtained from the diaphragm to the floor the pelvis with no contrast. Lung bases are clear. There is no pleural effusion. Heart size is normal. There is no pericardial eff usion. Liver spleen stomach pancreas appear intact. The bile ducts are not dilated. There are clips from cho lecystectomy. There is no adrenal mass. Kidneys have normal size. There is no hydronephrosis. Ureters are not dilat ed. There is no retroperitoneal adenopathy. There is no evidence of renal calculus. The bladder diste nds smoothly. There is no inguinal hernia. There is no free fluid in the pelvis. There is no mesenteric edema. There is no ascites or free air. There is no sign of a bowel obstructio n. Appendix is not seen. There is no sign of thickened appendix. The terminal ileum appears normal. The lumbar vertebra have fairly normal spacing and alignment. Posterior elements are intact. Bony pel vis is intact. The hip joints appear intact. IMPRESSION: Negative CT scan abdomen and pelvis. No adverse change compared to old exam.
[2020-10-04 21:31] LABS: Amorphous Sediment,Urine Occasional /hpf; Appearance,Urine Cloudy (Clear); Bilirubin,Urine Negative (Negative); Blood,Urine Small (Negative); Color,Urine Yellow; Glucose,Urine (UA) Negative (Negative); Ketones,Urine Negative (Negative); Leukocyte Esterase,Urine Negative (Negative); Mucus,Urine Rare /hpf; Nitrite,Urine Negative (Negative); Protein,Urine Negative (Negative); RBC,Urine 5 /hpf (0-5); Specific Gravity,Urine 1.019 (1.001-1.035); Squamous Epithelial Cell,Urine 3 /hpf (0-4); Urobilinogen,Urine <2.0 mg/dL (<2.0); WBC,Urine 2 /hpf (0-5)
[2020-10-04] MEDS ORDERED: diphenhydrAMINE 50 MG/ML 1 ML VIAL IVP STA (22:11)
[2020-10-04] MEDS ORDERED: methylPREDNISolone SOD SUCCI 125 MG/2 ML VIAL IV STA (22:12)
[2020-10-04] MEDS ORDERED: FAMOTIDINE 20 MG/2 ML VIAL IV STA (22:48)
[2020-10-04 23:22] VITALS: BP 99/59; PULSE 77; RESP 14
== END 2020-10-04 23:18 | disposition home or self-care (01) ==
LOC: EC 20:01
DX: N30.10 Interstitial cystitis (chronic) without hematuria (principal); Z88.8 Allergy status to other drugs, medicaments and biological substances; Z90.49 Acquired absence of other specified parts of digestive tract
CPT/HCPCS: 36415; 80053; 82150; 83690; 85025; 81001; 81025; 74176; 99284; 96361; 96374; 96375; J1200; J2930; J2405; J1885

== ENCOUNTER 2020-11-14 14:56 | Emergency (ER) | payer OTHER ==
[2020-11-14 15:29] VITALS: BP 117/70; PULSE 104; RESP 18; TEMP 98.2
[2020-11-14 16:07] LABS: Appearance,Urine Cloudy (Clear); Bacteria,Urine Occasional /hpf; Bilirubin,Urine Negative (Negative); Blood,Urine Large (Negative); Color,Urine Light Yellow; Glucose,Urine (UA) Negative (Negative); Ketones,Urine Negative (Negative); Leukocyte Esterase,Urine Large (Negative); Mucus,Urine Rare /hpf; Nitrite,Urine Positive (Negative); PH, Urine 6.5 (5.0-8.0); Protein,Urine Trace (Negative); RBC,Urine 135 /hpf (0-5); Specific Gravity,Urine 1.013 (1.001-1.035); Squamous Epithelial Cell,Urine 5 /hpf (0-4); Urobilinogen,Urine <2.0 mg/dL (<2.0); WBC,Urine 149 /hpf (0-5)
--- NOTE | 2020-11-14 16:33 | ED ---
Female Urogenital HPI - General Chief complaint: Urogenital Stated complaint: Abd Pain, Difficulty Urinating Time Seen by Provider: 11/14/20 16:19 Source: patient, RN notes reviewed Mode of arrival: ambulatory Limitations: no limitations - History of Present Illness Initial comments: Patient is a 35-year-old female that presents to the emergency department complaining of urinary tract infection symptoms such as frequency and discomfort on urination. She notes this is been going on for approximately one week. She notes that she has not gone to her primary care or urgent care for can emergency room to get evaluated. She denied other symptoms or complaints at this time. She was otherwise a well-appearing 35-year-old female in no apparent distress. She denied any chest pain shortness of breath headache nausea vomiting diarrhea constipation fever fatigue chills. - Related Data Previous Rx's Medication Instructions Recorded Ondansetron Odt [Zofran Odt] 4 mg PO Q8HR PRN #10 tab 07/30/20 Famotidine [Pepcid] 20 mg PO DAILY 28 Days #28 tablet 10/04/20 Ibuprofen [Motrin] 600 mg PO Q8HR PRN #20 tab 10/04/20 diphenhydrAMINE [Benadryl] 50 mg PO TID 10 Days #30 capsule 10/04/20 Nitrofurantoin Monohyd/M-Cryst 100 mg PO Q12HR #14 cap 11/14/20 [Macrobid] Allergies Allergy/AdvReac Type Severity Reaction Status Date / Time metoclopramide [From Reglan] AdvReac Mild Rapid Verified 11/14/20 15:29 Heart Rate prochlorperazine maleate AdvReac Rapid Verified 11/14/20 15:29 [From Compazine] Heart Rate Review of Systems ROS Statement: Those systems with pertinent positive or pertinent negative responses have been documented in the HPI. ROS Other: All systems not noted in ROS Statement are negative. Past Medical History Past Medical History: No Reported History Additional Past Medical History / Comment(s): COLITIS, uti's, kidney infections, interstitial cystitis, kidney stones, RECTAL BLEEDING History of Any Multi-Drug Resistant Organisms: None Reported Past Surgical History: Appendectomy, Cholecystectomy, Hysterectomy, Tubal Ligation Additional Past Surgical History / Comment(s): novasure ENDOMETRIAL ABLATION, COLONOSCOPY Past Anesthesia/Blood Transfusion Reactions: No Reported Reaction Past Psychological History: No Psychological Hx Reported Smoking Status: Never smoker Past Alcohol Use History: None Reported Past Drug Use History: Marijuana - Past Family History Father Family Medical History: No Reported History Mother Family Medical History: Cancer Additional Family Medical History / Comment(s): COLON CANCER General Exam Limitations: no limitations General appearance: alert, in no apparent distress Head exam: Present: atraumatic, normocephalic, normal inspection Eye exam: Present: normal appearance, PERRL, EOMI. Absent: scleral icterus, conjunctival injection, periorbital swelling Neck exam: Present: normal inspection Respiratory exam: Present: normal lung sounds bilaterally. Absent: respiratory distress, wheezes, rales, rhonchi, stridor Cardiovascular Exam: Present: regular rate, normal rhythm, normal heart sounds. Absent: systolic murmur, diastolic murmur, rubs, gallop, clicks Extremities exam: Present: normal inspection, full ROM, normal capillary refill. Absent: tenderness, pedal edema, joint swelling, calf tenderness Neurological exam: Present: alert, oriented X3 Psychiatric exam: Present: normal affect, normal mood Skin exam: Present: warm, dry, intact, normal color. Absent: rash Course Vital Signs 11/14/20 15:27 Temperature 98.2 F Pulse Rate 104 H Respiratory 18 Rate Blood Pressure 117/70 O2 Sat by Pulse 99 Oximetry Medical Decision Making - Medical Decision Making 35-year-old female complaining of urinary tract symptoms such as frequency and burning on urination. Urinalysis ordered. Urinalysis [id number] red blood cells 149 white blood cells and occasional bacteria and positive nitrite. Antibiotics sent to patient's pharmacy. Case discussed with Dr. Reyes, patient can discharge home with follow-up to primary care. - Lab Data Lab Results 11/14/20 11/14/20 Range/Units 15:36 15:36 Urine Color Light Yellow Urine Appearance Cloudy H (Clear) Urine pH 6.5 (5.0-8.0) Ur Specific [place] 1.013 (1.001-1.035) Urine Protein Trace H (Negative) Urine Glucose (UA) Negative (Negative) Urine Ketones Negative (Negative) Urine Blood Large H (Negative) Urine Nitrite Positive H (Negative) Urine Bilirubin Negative (Negative) Urine Urobilinogen <2.0 (<2.0) mg/dL Ur Leukocyte Esterase Large H (Negative) Urine RBC 135 H (0-5) /hpf Urine WBC 149 H (0-5) /hpf Urine WBC Clumps Moderate H (None) /hpf Ur Squamous Epith Cells 5 H (0-4) /hpf Urine Bacteria Occasional H (None) /hpf Urine Mucus Rare H (None) /hpf Urine HCG, Qual Not Detected (Not Detectd) Disposition Clinical Impression: Urinary tract infection Disposition: HOME SELF-CARE Condition: Stable Instructions (If sedation given, give patient instructions): Urinary Tract Infection in Women (ED) Additional Instructions: Please return to the Emergency Department if symptoms worsen or any other concerns. Follow-up primary care 1-2 days. Take antibiotics as prescribed until complete. Take Tylenol and Motrin as needed for pain. Increase oral fluids. Prescriptions: Nitrofurantoin Monohyd/M-Cryst [Macrobid] 100 mg PO Q12HR #14 cap Is patient prescribed a controlled substance at d/c from ED?: No Referrals: Mara Jack MD [Primary Care Provider] - 1-2 days Time of Disposition: 16:32
== END 2020-11-14 16:50 | disposition home or self-care (01) ==
LOC: EC 14:56
DX: N39.0 Urinary tract infection, site not specified (principal); B96.89 Other specified bacterial agents as the cause of diseases classified elsewhere; Z88.8 Allergy status to other drugs, medicaments and biological substances
CPT/HCPCS: 81001; 81025; 87077; 87086; 87186; 99283

== ENCOUNTER 2021-02-03 10:24 | Emergency (ER) | payer OTHER ==
[2021-02-03 11:00] VITALS: BP 107/73; PULSE 79; RESP 18; TEMP 98.2
--- NOTE | 2021-02-03 12:29 | ED ---
General Adult HPI - General Chief complaint: Upper Respiratory Infection Stated complaint: Vomiting/Ear Pain/Headache Time Seen by Provider: 02/03/21 12:03 Source: patient Mode of arrival: ambulatory Limitations: no limitations - History of Present Illness Initial comments: Dictation was produced using [employer] dictation software. please excuse any g rammatical, word or spelling errors. Chief Complaint: 35-year-old female presents emergency department for myalgias, vomiting, headache cough and congestion fevers History of Present Illness: Patient is 35-year-old female she has had constitutional symptoms for the last 48 hours. Patient was exposed to her family member who tested positive for coronavirus. Patient denies any medical problems per she has symptoms of cough, nonproductive, headache, congestion fever and chills. She also has bilateral ear pain. Denies any medical problems. No medications on a regular basis. Denies . The ROS documented in this emergency department record has been reviewed and confirmed by me. Those systems with pertinent positive or negative responses have been documented in the HPI. All other systems are other negative and/or noncontributory. PHYSICAL EXAM: General Impression: Alert and oriented x3, not in acute distress HEENT: Normocephalic atraumatic, extra-ocular movements intact, pupils equal and reactive to light bilaterally, mucous membranes moist, normal bilateral TMs Cardiovascular: Heart regular rate and rhythm Chest: Able to complete full sentences, no retractions, no tachypnea Abdomen: abdomen soft, non-tender, non-distended, no organomegaly Musculoskeletal: Pulses present and equal in all extremities, no peripheral edema Motor: no focal deficits noted Neurological: CN II-XII grossly intact, no focal motor or sensory deficits noted Skin: Intact with no visualized rashes Psych: Normal affect and mood ED course: 35-year-old healthy female presents to the emergency Department with viral URI symptoms. Patient had high risk exposure to an individual who tested positive for coronavirus recently. Vital signs upon arrival shows temperature of 90.2, rest of vital signs within acceptable limits. Patient is positive for colon. Urine hCG is negative. Chest x-ray is nonacute. Patient reevaluated bedside at 1:30 PM found to be stable medical condition. Patient does not meet right criteria for monoclonal antibody infusion. Patient discharged with return precautions. - Related Data Previous Rx's Medication Instructions Recorded Ondansetron Odt [Zofran Odt] 4 mg PO Q8HR PRN #10 tab 07/30/20 Famotidine [Pepcid] 20 mg PO DAILY 28 Days #28 tablet 10/04/20 Ibuprofen [Motrin] 600 mg PO Q8HR PRN #20 tab 10/04/20 diphenhydrAMINE [Benadryl] 50 mg PO TID 10 Days #30 capsule 10/04/20 Nitrofurantoin Monohyd/M-Cryst 100 mg PO Q12HR #14 cap 11/14/20 [Macrobid] Allergies Allergy/AdvReac Type Severity Reaction Status Date / Time metoclopramide [From Reglan] AdvReac Mild Rapid Verified 02/03/21 12:04 Heart Rate prochlorperazine maleate AdvReac Rapid Verified 02/03/21 12:04 [From Compazine] Heart Rate Review of Systems ROS Statement: Those systems with pertinent positive or pertinent negative responses have been documented in the HPI. ROS Other: All systems not noted in ROS Statement are negative. Past Medical History Past Medical History: No Reported History Additional Past Medical History / Comment(s): COLITIS, uti's, kidney infections, interstitial cystitis, kidney stones, RECTAL BLEEDING History of Any Multi-Drug Resistant Organisms: None Reported Past Surgical History: Appendectomy, Cholecystectomy, Hysterectomy, Tubal Ligation Additional Past Surgical History / Comment(s): novasure ENDOMETRIAL ABLATION, COLONOSCOPY Past Anesthesia/Blood Transfusion Reactions: No Reported Reaction Past Psychological History: No Psychological Hx Reported Smoking Status: Never smoker Past Alcohol Use History: None Reported Past Drug Use History: Marijuana - Past Family History Father Family Medical History: No Reported History Mother Family Medical History: Cancer Additional Family Medical History / Comment(s): COLON CANCER General Exam Limitations: no limitations Course Vital Signs 02/03/21 10:55 Temperature 98.2 F Pulse Rate 79 Respiratory 18 Rate Blood Pressure 107/73 O2 Sat by Pulse 97 Oximetry Medical Decision Making - Lab Data Lab Results 02/03/21 02/03/21 Range/Units 12:23 12:23 Urine HCG, Qual Not Detected (Not Detectd) Coronavirus (PCR) Detected A (Not Detectd) Disposition Clinical Impression: COVID-19 Disposition: HOME SELF-CARE Condition: Good Instructions (If sedation given, give patient instructions): Coronavirus Disease 2019 (COVID-19) Is patient prescribed a controlled substance at d/c from ED?: No Referrals: Mara Jack MD [Primary Care Provider] - 1-2 days
--- NOTE | 2021-02-03 12:46 | XR ---
EXAMINATION TYPE: XR chest 1V portable DATE OF EXAM: 02/03/2021 COMPARISON: Chest x-ray dated 02/16/2019 HISTORY: Covid, congestion in the chest, fever TECHNIQUE: Single frontal view of the chest is obtained. FINDINGS: There is no focal air space opacity, pleural effusion, or pneumothorax seen. The cardiac silhouette size is within normal limits. The osseous structures are intact. IMPRESSION: No acute process.
== END 2021-02-03 15:00 | disposition home or self-care (01) ==
LOC: EC 10:24
DX: U07.1 COVID-19 (principal); H92.09 Otalgia, unspecified ear; Z88.8 Allergy status to other drugs, medicaments and biological substances
CPT/HCPCS: 71045; 81025; 87635; 99284

== ENCOUNTER 2021-02-04 20:31 | Emergency (ER) | payer OTHER ==
[2021-02-04 21:08] VITALS: BP 123/82; PULSE 79; RESP 20; TEMP 98
[2021-02-04] MEDS ORDERED: DEXAMETHASONE SOD PHOSPHATE 10 MG/ML 1 ML VIAL IVP STA (23:04)
[2021-02-04] MEDS ORDERED: ONDANSETRON 4 MG/2 ML VIAL IVP STA (23:16)
--- NOTE | 2021-02-04 23:22 | XR ---
EXAMINATION TYPE: XR chest 2V DATE OF EXAM: 02/04/2021 COMPARISON: 02/03/2021 HISTORY: Short of breath TECHNIQUE: 2 views FINDINGS: Heart and mediastinum are normal. Lungs are clear. Diaphragm is normal. Bony thorax appears normal. IMPRESSION: Normal chest. No change.
[2021-02-04] MEDS ORDERED: SODIUM CHLORIDE 0.9% 50 ML IVPB ONE (23:30)
[2021-02-04] MEDS ORDERED: CASIRIVIMAB (REGN10933) (EUA) 600 MG, IMDEVIMAB (REGN10987) (EUA) 600 MG in SODIUM CHLO... IVPB ONE (23:45)
--- NOTE | 2021-02-04 23:54 | ED ---
URI HPI - General Chief Complaint: Upper Respiratory Infection Stated Complaint: Vomiting,Revisit Time Seen by Provider: 02/04/21 22:50 Source: patient, RN notes reviewed Mode of arrival: ambulatory Limitations: no limitations - History of Present Illness Initial Comments: Patient is a 35-year-old female that presents to the emergency department Covid-positive yesterday he reported to [facility]. Patient notes that she is still having symptoms at this time. Patient notes she has not taken any medication home. Patient wishes to get monoclonal antibodies today. Patient was otherwise well-appearing. She denied any new symptoms. She denied headache vomiting diarrhea constipation fever fatigue chills. - Related Data Home Medications Medication Instructions Recorded Confirmed No Known Home Medications 02/03/21 02/03/21 Allergies Allergy/AdvReac Type Severity Reaction Status Date / Time metoclopramide [From Reglan] AdvReac Mild Rapid Verified 02/04/21 21:09 Heart Rate prochlorperazine maleate AdvReac Rapid Verified 02/04/21 21:09 [From Compazine] Heart Rate Review of Systems ROS Statement: Those systems with pertinent positive or pertinent negative responses have been documented in the HPI. ROS Other: All systems not noted in ROS Statement are negative. Past Medical History Past Medical History: No Reported History Additional Past Medical History / Comment(s): COLITIS, uti's, kidney infections, interstitial cystitis, kidney stones, RECTAL BLEEDING. covid 02/01 History of Any Multi-Drug Resistant Organisms: None Reported Past Surgical History: Appendectomy, Cholecystectomy, Hysterectomy, Tubal Ligation Additional Past Surgical History / Comment(s): novasure ENDOMETRIAL ABLATION, COLONOSCOPY Past Anesthesia/Blood Transfusion Reactions: No Reported Reaction Past Psychological History: No Psychological Hx Reported Smoking Status: Never smoker Past Alcohol Use History: None Reported Past Drug Use History: Marijuana - Past Family History Father Family Medical History: No Reported History Mother Family Medical History: Cancer Additional Family Medical History / Comment(s): COLON CANCER General Exam Limitations: no limitations General appearance: alert, in no apparent distress Head exam: Present: atraumatic, normocephalic, normal inspection Eye exam: Present: normal appearance, PERRL, EOMI. Absent: scleral icterus, conjunctival injection, periorbital swelling ENT exam: Present: normal exam, mucous membranes moist Neck exam: Present: normal inspection Respiratory exam: Present: normal lung sounds bilaterally. Absent: respiratory distress, wheezes, rales, rhonchi, stridor Cardiovascular Exam: Present: regular rate, normal rhythm, normal heart sounds. Absent: systolic murmur, diastolic murmur, rubs, gallop, clicks Extremities exam: Present: normal inspection, full ROM, normal capillary refill. Absent: tenderness, pedal edema, joint swelling, calf tenderness Neurological exam: Present: alert, oriented X3 Psychiatric exam: Present: normal affect, normal mood Skin exam: Present: warm, dry, intact, normal color. Absent: rash Course Vital Signs 02/04/21 21:06 Temperature 98.0 F Pulse Rate 79 Respiratory 20 Rate Blood Pressure 123/82 O2 Sat by Pulse 99 Oximetry Medical Decision Making - Medical Decision Making 35-year-old female Covid-positive yesterday symptoms for the past few days. Chest x-ray, 10 mg of Decadron, monoclonal antibody ordered. Chest x-ray shows normal chest. No change. Patient does meet criteria. Patient is agreeable with discharge home after monoclonal infusion. Case discussed with Dr. Baker - Radiology Data Radiology results: report reviewed, image reviewed Chest x-ray: Normal chest. No change. Disposition Clinical Impression: COVID-19 Disposition: HOME SELF-CARE Condition: Stable Instructions (If sedation given, give patient instructions): Coronavirus Disease 2019 (COVID-19) Additional Instructions: Please return to the Emergency Department if symptoms worsen or any other concerns. Follow-up with primary care 1-2 days. Quarantine per CDC guidelines. It will take several weeks to return back to normal feeling. Continue conservative management. Is patient prescribed a controlled substance at d/c from ED?: No Referrals: Mara Jack MD [Primary Care Provider] - 1-2 days Time of Disposition: 23:53
== END 2021-02-05 02:17 | disposition home or self-care (01) ==
LOC: EC 20:31
DX: U07.1 COVID-19 (principal); Z88.8 Allergy status to other drugs, medicaments and biological substances
CPT/HCPCS: 71046; 99283; 96365; 96375; J1100; J2405; Q0243

== ENCOUNTER 2021-05-21 15:19 | Emergency (ER) | payer OTHER ==
[2021-05-21 15:35] VITALS: BP 118/65; PULSE 83; RESP 20; TEMP 98.4
[2021-05-21 16:22] LABS: Appearance,Urine Cloudy (Clear); Color,Urine Yellow
[2021-05-21 16:23] LABS: Bacteria,Urine Rare /hpf; Bilirubin,Urine Negative (Negative); Blood,Urine Small (Negative); Glucose,Urine (UA) Negative (Negative); Ketones,Urine Negative (Negative); Leukocyte Esterase,Urine Negative (Negative); Mucus,Urine Few /hpf; Nitrite,Urine Negative (Negative); PH, Urine 6.5 (5.0-8.0); Protein,Urine Trace (Negative); RBC,Urine 10 /hpf (0-5); Specific Gravity,Urine 1.026 (1.001-1.035); Squamous Epithelial Cell,Urine 21 /hpf (0-4); Urobilinogen,Urine <2.0 mg/dL (<2.0); WBC,Urine 1 /hpf (0-5)
[2021-05-21] MEDS ORDERED: SODIUM CHLORIDE 0.9% 1,000 ML IV STA (16:23)
[2021-05-21] MEDS ORDERED: ONDANSETRON 4 MG/2 ML VIAL IVP STA (16:23)
[2021-05-21] MEDS ORDERED: MORPHINE SULFATE 4 MG/ML SYRINGE IV STA (16:23)
[2021-05-21] MEDS ORDERED: KETOROLAC 15 MG/ML 1 ML VIAL IVP STA (16:28)
--- NOTE | 2021-05-21 16:29 | ED ---
General Adult HPI - General Chief complaint: Nausea/Vomiting/Diarrhea Stated complaint: Nausea/Vomiting Time Seen by Provider: 05/21/21 15:54 Source: patient Mode of arrival: ambulatory Limitations: no limitations - History of Present Illness Initial comments: Dictation was produced using [employer] dictation software. please excuse any grammatical, word or spelling errors. Chief Complaint: 36-year-old female with alleged history of kidney stones presents to the emergency department for severe right-sided flank pain and abdominal pain History of Present Illness: 36-year-old female she states that she has a history of colitis, kidney stones and UTIs. Since 2:30 this morning she's had severe flank pain and abdominal pain. She states the pain is constant. Sometimes colicky. She has a history of kidney stone. She tried to call the urologist office however she was not able to make an appointment today. She states that came to the emergency department. No fever. She does have flank pain and CVA pain. She's had multiple bouts of nonbilious nonbloody emesis. She is severely nauseated. Denies any constitutional symptoms. She has a history of hysterectomy. The ROS documented in this emergency department record has been reviewed and confirmed by me. Those systems with pertinent positive or negative responses have been documented in the HPI. All other systems are other negative and/or noncontributory. PHYSICAL EXAM: General Impression: Alert and oriented x3, acute distress secondary to pain HEENT: Normocephalic atraumatic, extra-ocular movements intact, pupils equal and reactive to light bilaterally, mucous membranes moist. Cardiovascular: Heart regular rate and rhythm Chest: Able to complete full sentences, no retractions, no tachypnea Abdomen: abdomen soft, non-tender, non-distended, no organomegaly Musculoskeletal: Pulses present and equal in all extremities, no peripheral edema, positive pain with CVA thump Motor: no focal deficits noted Neurological: CN II-XII grossly intact, no focal motor or sensory deficits noted Skin: Intact with no visualized rashes Psych: Normal affect and mood ED course: 36-year-old female presents to the emergency department for severe flank and abdominal pain. Vital signs upon arrival are within acceptable limits. Patient is in acute distress. Laboratory evaluation obtained. CBC and metabolic panel, abdominal labs are negative. Urinalysis shows 10 red blood cells but 21 squamous epithelial suggesting contaminated sample. Computed tomography scan of the abdomen and pelvis shows no acute abnormality. No signs of obstructive uropathy.. Patient given IV analgesics. She is reevaluated at the bedside at 7:00 PM after a 3 hour and 38 minute ER observation. She feels well and was discharge. Advised follow-up with primary care doctor. - Related Data Home Medications Medication Instructions Recorded Confirmed No Known Home Medications 02/03/21 05/21/21 Allergies Allergy/AdvReac Type Severity Reaction Status Date / Time metoclopramide [From Reglan] AdvReac Mild Rapid Verified 05/21/21 17:39 Heart Rate prochlorperazine maleate AdvReac Rapid Verified 05/21/21 17:39 [From Compazine] Heart Rate Review of Systems ROS Statement: Those systems with pertinent positive or pertinent negative responses have been documented in the HPI. ROS Other: All systems not noted in ROS Statement are negative. Past Medical History Past Medical History: No Reported History Additional Past Medical History / Comment(s): COLITIS, uti's, kidney infections, interstitial cystitis, kidney stones, RECTAL BLEEDING. covid 02/01 History of Any Multi-Drug Resistant Organisms: None Reported Past Surgical History: Appendectomy, Cholecystectomy, Hysterectomy, Tubal Ligation Additional Past Surgical History / Comment(s): novasure ENDOMETRIAL ABLATION, COLONOSCOPY Past Anesthesia/Blood Transfusion Reactions: No Reported Reaction Past Psychological History: No Psychological Hx Reported Smoking Status: Never smoker Past Alcohol Use History: None Reported Past Drug Use History: None Reported, Marijuana - Past Family History Father Family Medical History: No Reported History Mother Family Medical History: Cancer Additional Family Medical History / Comment(s): COLON CANCER General Exam Limitations: no limitations Course Vital Signs 05/21/21 15:33 Temperature 98.4 F Pulse Rate 83 Respiratory 20 Rate Blood Pressure 118/65 O2 Sat by Pulse 100 Oximetry Medical Decision Making - Lab Data Result diagrams: 05/21/21 16:56 05/21/21 16:56 Lab Results 05/21/21 05/21/21 05/21/21 Range/Units 16:02 16:02 16:56 WBC 10.0 (3.8-10.6) k/uL RBC 3.99 (3.80-5.40) m/uL Hgb 13.3 (11.4-16.0) gm/dL Hct 38.7 (34.0-46.0) % MCV 96.9 (80.0-100.0) fL MCH 33.3 (25.0-35.0) pg MCHC 34.4 (31.0-37.0) g/dL RDW 12.2 (11.5-15.5) % Plt Count 336 (150-450) k/uL MPV 7.0 Neutrophils % 54 % Lymphocytes % 33 % Monocytes % 6 % Eosinophils % 2 % Basophils % 1 % Neutrophils # 5.4 (1.3-7.7) k/uL Lymphocytes # 3.3 (1.0-4.8) k/uL Monocytes # 0.6 (0-1.0) k/uL Eosinophils # 0.2 (0-0.7) k/uL Basophils # 0.1 (0-0.2) k/uL Sodium (137-145) mmol/L Potassium (3.5-5.1) mmol/L Chloride (98-107) mmol/L Carbon Dioxide (22-30) mmol/L Anion Gap mmol/L BUN (7-17) mg/dL Creatinine (0.52-1.04) mg/dL Est GFR (CKD-EPI)AfAm (>60 ml/min/1.73 sqM) Est GFR (CKD-EPI)NonAf (>60 ml/min/1.73 sqM) Glucose (74-99) mg/dL Calcium (8.4-10.2) mg/dL Total Bilirubin (0.2-1.3) mg/dL AST (14-36) U/L ALT (4-34) U/L Alkaline Phosphatase (38-126) U/L Total Protein (6.3-8.2) g/dL Albumin (3.5-5.0) g/dL Urine Color Yellow Urine Appearance Cloudy H (Clear) Urine pH 6.5 (5.0-8.0) Ur Specific [place] 1.026 (1.001-1.035) Urine Protein Trace H (Negative) Urine Glucose (UA) Negative (Negative) Urine Ketones Negative (Negative) Urine Blood Small H (Negative) Urine Nitrite Negative (Negative) Urine Bilirubin Negative (Negative) Urine Urobilinogen <2.0 (<2.0) mg/dL Ur Leukocyte Esterase Negative (Negative) Urine RBC 10 H (0-5) /hpf Urine WBC 1 (0-5) /hpf Ur Squamous Epith Cells 21 H (0-4) /hpf Urine Bacteria Rare H (None) /hpf Urine Mucus Few H (None) /hpf Urine HCG, Qual Not Detected (Not Detectd) 05/21/21 Range/Units 16:56 WBC (3.8-10.6) k/uL RBC (3.80-5.40) m/uL Hgb (11.4-16.0) gm/dL Hct (34.0-46.0) % MCV (80.0-100.0) fL MCH (25.0-35.0) pg MCHC (31.0-37.0) g/dL RDW (11.5-15.5) % Plt Count (150-450) k/uL MPV Neutrophils % % Lymphocytes % % Monocytes % % Eosinophils % % Basophils % % Neutrophils # (1.3-7.7) k/uL Lymphocytes # (1.0-4.8) k/uL Monocytes # (0-1.0) k/uL Eosinophils # (0-0.7) k/uL Basophils # (0-0.2) k/uL Sodium 136 L (137-145) mmol/L Potassium 3.9 (3.5-5.1) mmol/L Chloride 106 (98-107) mmol/L Carbon Dioxide 22 (22-30) mmol/L Anion Gap 8 mmol/L BUN 13 (7-17) mg/dL Creatinine 0.66 (0.52-1.04) mg/dL Est GFR (CKD-EPI)AfAm >90 (>60 ml/min/1.73 sqM) Est GFR (CKD-EPI)NonAf >90 (>60 ml/min/1.73 sqM) Glucose 83 (74-99) mg/dL Calcium 9.2 (8.4-10.2) mg/dL Total Bilirubin 0.5 (0.2-1.3) mg/dL AST 24 (14-36) U/L ALT 18 (4-34) U/L Alkaline Phosphatase 65 (38-126) U/L Total Protein 8.0 (6.3-8.2) g/dL Albumin 4.8 (3.5-5.0) g/dL Urine Color Urine Appearance (Clear) Urine pH (5.0-8.0) Ur Specific [place] (1.001-1.035) Urine Protein (Negative) Urine Glucose (UA) (Negative) Urine Ketones (Negative) Urine Blood (Negative) Urine Nitrite (Negative) Urine Bilirubin (Negative) Urine Urobilinogen (<2.0) mg/dL Ur Leukocyte Esterase (Negative) Urine RBC (0-5) /hpf Urine WBC (0-5) /hpf Ur Squamous Epith Cells (0-4) /hpf Urine Bacteria (None) /hpf Urine Mucus (None) /hpf Urine HCG, Qual (Not Detectd) Disposition Clinical Impression: Flank pain Disposition: HOME SELF-CARE Condition: Good Instructions (If sedation given, give patient instructions): Acute Nausea and Vomiting (ED) Is patient prescribed a controlled substance at d/c from ED?: No Referrals: Mara Jack MD [Primary Care Provider] - 1-2 days
[2021-05-21 17:06] LABS: Basophils # (A) 0.1 k/uL (0-0.2); Basophils % (A) 1 %; Eosinophils # (A) 0.2 k/uL (0-0.7); Eosinophils % (A) 2 %; HCT 38.7 % (34.0-46.0); HGB 13.3 gm/dL (11.4-16.0); Lymphocytes # (A) 3.3 k/uL (1.0-4.8); Lymphocytes % (A) 33 %; MCH 33.3 pg (25.0-35.0); MCHC 34.4 g/dL (31.0-37.0); MCV 96.9 fL (80.0-100.0); Monocytes # (A) 0.6 k/uL (0-1.0); Monocytes % (A) 6 %; Neutrophils # (A) 5.4 k/uL (1.3-7.7); Neutrophils % (A) 54 %; Platelet Count 336 k/uL (150-450); RBC 3.99 m/uL (3.80-5.40); RDW 12.2 % (11.5-15.5)
[2021-05-21 17:09] LABS: ALT 18 U/L (4-34); AST 24 U/L (14-36); African American GFR (CKD) >90 (>60 ml/min/1.73 sqM); Albumin 4.8 g/dL (3.5-5.0); Alkaline Phosphatase 65 U/L (38-126); Anion Gap 8 mmol/L; Blood Urea Nitrogen 13 mg/dL (7-17); Calcium 9.2 mg/dL (8.4-10.2); Carbon Dioxide 22 mmol/L (22-30); Chloride 106 mmol/L (98-107); Glucose 83 mg/dL (74-99); Non-African American GFR(CKD) >90 (>60 ml/min/1.73 sqM); Potassium 3.9 mmol/L (3.5-5.1); Sodium 136 mmol/L (137-145); Total Bilirubin 0.5 mg/dL (0.2-1.3)
--- NOTE | 2021-05-21 17:30 | CT ---
EXAMINATION TYPE: CT abdomen pelvis wo con DATE OF EXAM: 05/21/2021 COMPARISON: 10/04/2020 HISTORY: right flank pain CT DLP: 594.9 mGycm Automated exposure control for dose reduction was used. TECHNIQUE: Helical acquisition of images was performed from the lung bases through the pelvis. FINDINGS: LUNG BASES: No significant abnormality is appreciated. LIVER/GB: No acute abnormality is appreciated. Cholecystectomy. PANCREAS: No significant abnormality is seen. SPLEEN: No significant abnormality is seen. ADRENALS: No significant abnormality is seen. KIDNEYS: No hydronephrosis or nephrolithiasis. Stable punctate right pelvic phlebolith adjacent to th e distal ureter. FREE AIR: No free air is visualized RETROPERITONEAL ADENOPATHY: None visualized REPRODUCTIVE ORGANS: No significant abnormality is seen URINARY BLADDER: No significant abnormality is seen. PELVIC ADENOPATHY: None visualized. OSSEOUS STRUCTURES: No significant abnormality is seen. BOWEL: No significant abnormality is seen. No acute appendicitis. OTHER: None IMPRESSION: NO ACUTE ABNORMALITY OR OBSTRUCTIVE UROPATHY.
[2021-05-21] MEDS ORDERED: HYDROmorphone 0.5 MG/0.5 ML SYRINGE IVP STA (17:57)
== END 2021-05-21 19:13 | disposition home or self-care (01) ==
LOC: EC 15:19
DX: R10.9 Unspecified abdominal pain (principal); R11.2 Nausea with vomiting, unspecified; Z86.16 Personal history of COVID-19; Z88.8 Allergy status to other drugs, medicaments and biological substances; Z87.442 Personal history of urinary calculi; Z90.49 Acquired absence of other specified parts of digestive tract
CPT/HCPCS: 36415; 80053; 85025; 81001; 81025; 74176; 99284; 96374; 96375; 96361; J2270; J2405; J1885; J1170

== ENCOUNTER 2021-08-12 13:07 | Emergency (ER) | payer OTHER ==
[2021-08-12] MEDS ORDERED: HYDROmorphone 1 MG/ML 1 ML SYRINGE IVP STA (13:34)
[2021-08-12] MEDS ORDERED: PANTOPRAZOLE 40 MG/10 ML VIAL IVP STA (13:34)
[2021-08-12] MEDS ORDERED: ONDANSETRON 4 MG/2 ML VIAL IVP STA (13:34)
[2021-08-12] MEDS ORDERED: SODIUM CHLORIDE 0.9% 1,000 ML IV STA (13:34)
--- NOTE | 2021-08-12 13:39 | ED ---
General Adult HPI - General Chief complaint: GI Bleed Stated complaint: Blood in stool Time Seen by Provider: 08/12/21 13:16 Source: patient, RN notes reviewed Mode of arrival: ambulatory Limitations: no limitations - History of Present Illness Initial comments: Patient is a pleasant 36-year-old female presenting to the emergency Department with abdominal discomfort and rectal bleeding. Onset of symptoms was 3 days ago. Patient has had similar symptoms twice previously associated with colitis. Patient has had 3 episodes today. Patient also has some mucus in her stools. Patient has nausea. No vomiting. No fevers. Patient does have history of hysterectomy. - Related Data Home Medications Medication Instructions Recorded Confirmed Acetaminophen Tab [Tylenol Tab] 1,000 mg PO Q6HR PRN 08/12/21 08/12/21 Previous Rx's Medication Instructions Recorded Sulfamethox-Tmp 800-160Mg [Bactrim 1 each PO Q12HR #14 tab 08/12/21 DS 800-160 mg] methylPREDNISolone Dose Pack 24 mg PO DAILY #1 tab 08/12/21 [Medrol Dose Pack] Allergies Allergy/AdvReac Type Severity Reaction Status Date / Time metoclopramide [From Reglan] AdvReac Mild Rapid Verified 08/12/21 14:17 Heart Rate prochlorperazine maleate AdvReac Rapid Verified 08/12/21 14:17 [From Compazine] Heart Rate Review of Systems ROS Statement: Those systems with pertinent positive or pertinent negative responses have been documented in the HPI. ROS Other: All systems not noted in ROS Statement are negative. Constitutional: Denies: fever, chills Eyes: Denies: eye pain ENT: Denies: ear pain Respiratory: Denies: as per HPI Cardiovascular: Denies: chest pain Endocrine: Denies: fatigue Gastrointestinal: Reports: as per HPI, abdominal pain, nausea. Denies: vomiting Genitourinary: Denies: dysuria Musculoskeletal: Denies: back pain Skin: Denies: rash Past Medical History Past Medical History: No Reported History Additional Past Medical History / Comment(s): COLITIS, uti's, kidney infections, interstitial cystitis, kidney stones, RECTAL BLEEDING. covid 02/01 History of Any Multi-Drug Resistant Organisms: None Reported Past Surgical History: Appendectomy, Cholecystectomy, Hysterectomy, Tubal Ligation Additional Past Surgical History / Comment(s): novasure ENDOMETRIAL ABLATION, COLONOSCOPY Past Anesthesia/Blood Transfusion Reactions: No Reported Reaction Past Psychological History: No Psychological Hx Reported Smoking Status: Never smoker Past Alcohol Use History: None Reported Past Drug Use History: None Reported, Marijuana - Past Family History Father Family Medical History: No Reported History Mother Family Medical History: Cancer Additional Family Medical History / Comment(s): COLON CANCER General Exam Limitations: no limitations General appearance: alert, in no apparent distress Head exam: Present: normocephalic Eye exam: Present: normal appearance Neck exam: Present: normal inspection Respiratory exam: Present: normal lung sounds bilaterally Cardiovascular Exam: Present: regular rate, normal rhythm GI/Abdominal exam: Present: soft, tenderness (Mild diffuse tenderness), normal bowel sounds. Absent: distended, guarding, rebound, rigid Rectal exam: Present: deferred (Patient does not want exam done.) Extremities exam: Present: normal inspection Neurological exam: Present: alert Psychiatric exam: Present: normal affect, normal mood Skin exam: Present: normal color Course Vital Signs 08/12/21 08/12/21 08/12/21 13:10 13:24 14:45 Temperature 98.7 F Pulse Rate 78 79 90 Respiratory 20 18 18 Rate Blood Pressure 137/74 138/91 120/83 O2 Sat by Pulse 98 98 98 Oximetry Medical Decision Making - Medical Decision Making Patient reevaluated and resting comfortably in bed. Patient updated on results and need for follow-up. Patient states previously she did receive antibiotics and steroids for this. - Lab Data Result diagrams: 08/12/21 14:34 08/12/21 14:34 Lab Results 08/12/21 08/12/21 08/12/21 Range/Units 14:34 14:34 14:34 WBC 9.2 (3.8-10.6) k/uL RBC 4.23 (3.80-5.40) m/uL Hgb 13.9 (11.4-16.0) gm/dL Hct 40.5 (34.0-46.0) % MCV 95.6 (80.0-100.0) fL MCH 32.7 (25.0-35.0) pg MCHC 34.2 (31.0-37.0) g/dL RDW 11.9 (11.5-15.5) % Plt Count 355 (150-450) k/uL MPV 6.9 Neutrophils % 56 % Lymphocytes % 32 % Monocytes % 6 % Eosinophils % 2 % Basophils % 0 % Neutrophils # 5.2 (1.3-7.7) k/uL Lymphocytes # 3.0 (1.0-4.8) k/uL Monocytes # 0.5 (0-1.0) k/uL Eosinophils # 0.2 (0-0.7) k/uL Basophils # 0.0 (0-0.2) k/uL PT 9.9 (9.0-12.0) sec INR 0.9 (<1.2) APTT 26.6 (22.0-30.0) sec Sodium (137-145) mmol/L Potassium (3.5-5.1) mmol/L Chloride (98-107) mmol/L Carbon Dioxide (22-30) mmol/L Anion Gap mmol/L BUN (7-17) mg/dL Creatinine (0.52-1.04) mg/dL Est GFR (CKD-EPI)AfAm (>60 ml/min/1.73 sqM) Est GFR (CKD-EPI)NonAf (>60 ml/min/1.73 sqM) Glucose (74-99) mg/dL Calcium (8.4-10.2) mg/dL Total Bilirubin (0.2-1.3) mg/dL AST (14-36) U/L ALT (4-34) U/L Alkaline Phosphatase (38-126) U/L Total Protein (6.3-8.2) g/dL Albumin (3.5-5.0) g/dL Amylase (30-110) U/L Lipase (23-300) U/L Urine Color Light Yellow Urine Appearance Clear (Clear) Urine pH 6.5 (5.0-8.0) Ur Specific [place] 1.020 (1.001-1.035) Urine Protein Negative (Negative) Urine Glucose (UA) Negative (Negative) Urine Ketones Negative (Negative) Urine Blood Small H (Negative) Urine Nitrite Negative (Negative) Urine Bilirubin Negative (Negative) Urine Urobilinogen <2.0 (<2.0) mg/dL Ur Leukocyte Esterase Negative (Negative) Urine RBC 8 H (0-5) /hpf Urine WBC 1 (0-5) /hpf Ur Squamous Epith Cells 4 (0-4) /hpf Urine Mucus Rare H (None) /hpf 08/12/21 Range/Units 14:34 WBC (3.8-10.6) k/uL RBC (3.80-5.40) m/uL Hgb (11.4-16.0) gm/dL Hct (34.0-46.0) % MCV (80.0-100.0) fL MCH (25.0-35.0) pg MCHC (31.0-37.0) g/dL RDW (11.5-15.5) % Plt Count (150-450) k/uL MPV Neutrophils % % Lymphocytes % % Monocytes % % Eosinophils % % Basophils % % Neutrophils # (1.3-7.7) k/uL Lymphocytes # (1.0-4.8) k/uL Monocytes # (0-1.0) k/uL Eosinophils # (0-0.7) k/uL Basophils # (0-0.2) k/uL PT (9.0-12.0) sec INR (<1.2) APTT (22.0-30.0) sec Sodium 138 (137-145) mmol/L Potassium 3.9 (3.5-5.1) mmol/L Chloride 104 (98-107) mmol/L Carbon Dioxide 26 (22-30) mmol/L Anion Gap 8 mmol/L BUN 15 (7-17) mg/dL Creatinine 0.69 (0.52-1.04) mg/dL Est GFR (CKD-EPI)AfAm >90 (>60 ml/min/1.73 sqM) Est GFR (CKD-EPI)NonAf >90 (>60 ml/min/1.73 sqM) Glucose 82 (74-99) mg/dL Calcium 9.4 (8.4-10.2) mg/dL Total Bilirubin 0.4 (0.2-1.3) mg/dL AST 20 (14-36) U/L ALT 14 (4-34) U/L Alkaline Phosphatase 67 (38-126) U/L Total Protein 7.3 (6.3-8.2) g/dL Albumin 4.5 (3.5-5.0) g/dL Amylase 138 H (30-110) U/L Lipase 432 H (23-300) U/L Urine Color Urine Appearance (Clear) Urine pH (5.0-8.0) Ur Specific [place] (1.001-1.035) Urine Protein (Negative) Urine Glucose (UA) (Negative) Urine Ketones (Negative) Urine Blood (Negative) Urine Nitrite (Negative) Urine Bilirubin (Negative) Urine Urobilinogen (<2.0) mg/dL Ur Leukocyte Esterase (Negative) Urine RBC (0-5) /hpf Urine WBC (0-5) /hpf Ur Squamous Epith Cells (0-4) /hpf Urine Mucus (None) /hpf - Radiology Data Radiology results: report reviewed (Computed tomography scan abdomen pelvis shows ovarian cyst.) Disposition Clinical Impression: Colitis Disposition: HOME SELF-CARE Condition: Stable Instructions (If sedation given, give patient instructions): Gastrointestinal Bleeding (ED), Colitis (ED) Additional Instructions: Please follow-up with primary care physician in the next day or 2 for recheck. Also follow-up with gastroenterology, number provided. Return for increased bleeding, pain, vomiting, fevers, worsening or changing symptoms or other concerns. Prescription has been sent to pharmacy. Prescriptions: Sulfamethox-Tmp 800-160Mg [Bactrim DS 800-160 mg] 1 each PO Q12HR #14 tab methylPREDNISolone Dose Pack [Medrol Dose Pack] 24 mg PO DAILY #1 tab Is patient prescribed a controlled substance at d/c from ED?: No Referrals: Mara Jack MD [Primary Care Provider] - 1-2 days Time of Disposition: 15:28
[2021-08-12 15:08] LABS: ALT 14 U/L (4-34); AST 20 U/L (14-36); African American GFR (CKD) >90 (>60 ml/min/1.73 sqM); Albumin 4.5 g/dL (3.5-5.0); Alkaline Phosphatase 67 U/L (38-126); Amylase 138 U/L (30-110); Anion Gap 8 mmol/L; Blood Urea Nitrogen 15 mg/dL (7-17); Calcium 9.4 mg/dL (8.4-10.2); Carbon Dioxide 26 mmol/L (22-30); Chloride 104 mmol/L (98-107); Glucose 82 mg/dL (74-99); Lipase 432 U/L (23-300); Non-African American GFR(CKD) >90 (>60 ml/min/1.73 sqM); Potassium 3.9 mmol/L (3.5-5.1); Sodium 138 mmol/L (137-145); Total Bilirubin 0.4 mg/dL (0.2-1.3); Total Protein 7.3 g/dL (6.3-8.2)
[2021-08-12 15:12] LABS: INR 0.9 (<1.2); Partial Thromboplastin Time 26.6 sec (22.0-30.0); Prothrombin Time 9.9 sec (9.0-12.0)
[2021-08-12 15:13] LABS: Basophils % (A) 0 %; Eosinophils # (A) 0.2 k/uL (0-0.7); Eosinophils % (A) 2 %; HCT 40.5 % (34.0-46.0); HGB 13.9 gm/dL (11.4-16.0); Lymphocytes % (A) 32 %; MCH 32.7 pg (25.0-35.0); MCHC 34.2 g/dL (31.0-37.0); MCV 95.6 fL (80.0-100.0); Mean Platelet Volume 6.9; Monocytes # (A) 0.5 k/uL (0-1.0); Monocytes % (A) 6 %; Neutrophils # (A) 5.2 k/uL (1.3-7.7); Neutrophils % (A) 56 %; Platelet Count 355 k/uL (150-450); RBC 4.23 m/uL (3.80-5.40); RDW 11.9 % (11.5-15.5); WBC 9.2 k/uL (3.8-10.6)
[2021-08-12 15:15] LABS: Appearance,Urine Clear (Clear); Bilirubin,Urine Negative (Negative); Blood,Urine Small (Negative); Color,Urine Light Yellow; Glucose,Urine (UA) Negative (Negative); Ketones,Urine Negative (Negative); Leukocyte Esterase,Urine Negative (Negative); Mucus,Urine Rare /hpf; Nitrite,Urine Negative (Negative); PH, Urine 6.5 (5.0-8.0); Protein,Urine Negative (Negative); RBC,Urine 8 /hpf (0-5); Squamous Epithelial Cell,Urine 4 /hpf (0-4); Urobilinogen,Urine <2.0 mg/dL (<2.0); WBC,Urine 1 /hpf (0-5)
--- NOTE | 2021-08-12 15:17 | CT ---
EXAMINATION TYPE: CT abdomen pelvis w con DATE OF EXAM: 08/12/2021 COMPARISON: 05/21/2021 INDICATION: Abdominal pain and bilateral side pain DLP: 853 mGycm, Automated exposure control for dose reduction was used. CONTRAST: 100 mL of Isovue 300. Study performed without Oral Contrast TECHNIQUE: Axial images were obtained from above the diaphragm to the pubic rami in the axial plane a t 5 mm thick sections. Reconstructed images are reviewed on the computer in the coronal plane. FINDINGS: Limited CT sections are obtained the lung bases. The lung bases are clear. CT ABDOMEN: Liver: Normal Spleen: Normal Pancreas: Normal Adrenal glands: The adrenal glands are normal. Gallbladder: Surgically absent Kidneys: No masses are evident. No hydronephrosis is present. No cysts are present. Delayed images were obtained through the kidneys, which remain unremarkable. Aorta: Normal Inferior vena cava: Normal. CT PELVIS: Loops of bowel within the abdomen and pelvis are normal. There are loops of bowel which are incom pletely distended or lack oral contrast limiting their evaluation. Appendix: Normal as visualized. Urinary bladder: Normal. Genitourinary structures: There is a 1.4 cm cyst on the left ovary. Right ovary is not identified. Ut erus is not well identified. Osseous structures: No suspicious lytic or sclerotic lesions. IMPRESSIONS: 1. 1.4 cm left ovarian cyst.
[2021-08-12 15:44] VITALS: BP 104/64; PULSE 96; RESP 16; TEMP 98.4
== END 2021-08-12 15:43 | disposition home or self-care (01) ==
LOC: EC 13:07
DX: K52.9 Noninfective gastroenteritis and colitis, unspecified (principal); Z88.8 Allergy status to other drugs, medicaments and biological substances; Z88.9 Allergy status to unspecified drugs, medicaments and biological substances
CPT/HCPCS: 99285; 96374; 96375; 96361; 36415; 80053; 82150; 83690; 85025; 85610; 85730; 81001; 74177; J2405; J1170; C9113; Q9967

== ENCOUNTER 2021-09-27 16:29 | Emergency (ER) | payer OTHER ==
[2021-09-27 17:05] VITALS: PULSE 85; RESP 18
[2021-09-27 17:24] LABS: Appearance,Urine Cloudy (Clear); Bilirubin,Urine Negative (Negative); Blood,Urine Moderate (Negative); Color,Urine Yellow; Glucose,Urine (UA) Negative (Negative); Hyaline Casts,Urine 4 /lpf (0-2); Ketones,Urine Negative (Negative); Leukocyte Esterase,Urine Small (Negative); Mucus,Urine Occasional /hpf; Nitrite,Urine Negative (Negative); PH, Urine 6.5 (5.0-8.0); Protein,Urine Negative (Negative); RBC,Urine 17 /hpf (0-5); Specific Gravity,Urine 1.025 (1.001-1.035); Squamous Epithelial Cell,Urine 11 /hpf (0-4); WBC,Urine 12 /hpf (0-5)
[2021-09-27] MEDS ORDERED: SODIUM CHLORIDE 0.9% 2,000 ML IV STA (19:06)
[2021-09-27] MEDS ORDERED: ONDANSETRON 4 MG/2 ML VIAL IVP STA (19:06)
[2021-09-27] MEDS ORDERED: HYDROmorphone 0.5 MG/0.5 ML SYRINGE IVP STA (19:06)
[2021-09-27 20:07] LABS: Basophils # (A) 0.1 k/uL (0-0.2); Basophils % (A) 1 %; Eosinophils # (A) 0.2 k/uL (0-0.7); Eosinophils % (A) 2 %; HCT 41.1 % (34.0-46.0); HGB 14.1 gm/dL (11.4-16.0); Lymphocytes # (A) 3.3 k/uL (1.0-4.8); Lymphocytes % (A) 36 %; MCH 33.6 pg (25.0-35.0); MCHC 34.2 g/dL (31.0-37.0); MCV 98.3 fL (80.0-100.0); Mean Platelet Volume 6.9; Monocytes # (A) 0.4 k/uL (0-1.0); Monocytes % (A) 4 %; Neutrophils # (A) 5.1 k/uL (1.3-7.7); Neutrophils % (A) 55 %; Platelet Count 355 k/uL (150-450); RBC 4.19 m/uL (3.80-5.40); RDW 12.1 % (11.5-15.5); WBC 9.3 k/uL (3.8-10.6)
[2021-09-27 20:32] LABS: ALT 14 U/L (4-34); African American GFR (CKD) >90 (>60 ml/min/1.73 sqM); Anion Gap 8 mmol/L; Blood Urea Nitrogen 11 mg/dL (7-17); Calcium 9.8 mg/dL (8.4-10.2); Carbon Dioxide 27 mmol/L (22-30); Chloride 103 mmol/L (98-107); Glucose 84 mg/dL (74-99); Lipase 68 U/L (23-300); Non-African American GFR(CKD) >90 (>60 ml/min/1.73 sqM); Sodium 138 mmol/L (137-145); Total Bilirubin 0.4 mg/dL (0.2-1.3); Total Protein 8.2 g/dL (6.3-8.2)
[2021-09-27 20:33] LABS: AST 25 U/L (14-36); Alkaline Phosphatase 72 U/L (38-126); Potassium 4.4 mmol/L (3.5-5.1)
--- NOTE | 2021-09-27 21:41 | CT ---
EXAMINATION TYPE: CT abdomen pelvis wo con DATE OF EXAM: 09/27/2021 COMPARISON: 08/12/2021 HISTORY: right flank pian and lower abd pain, hematuria CT DLP: 666.9 mGycm Automated exposure control for dose reduction was used. Images obtained from the diaphragm to the floor of the pelvis with no contrast. Lung bases are clear. No pleural effusion. Heart size is normal. No pericardial effusion. Liver spleen and stomach pancreas appear intact. The bile ducts are not dilated. There are clips from cholecystectomy. There is no adrenal mass. Kidneys have normal size and contour. There is no hydronephrosis. Ureters a re not dilated. There is no retroperitoneal adenopathy. Bladder distends smoothly. No inguinal hernia . No free fluid in the pelvis. There is hysterectomy. No pelvic mass. Appendix not seen. No signs of thickened appendix. The lumbar vertebra have normal spacing and alignment. Posterior elements are intact. No compression fracture. The bony pelvis is intact. The hip joints are intact. There is no mesenteric edema. No ascites or free air. No sign of a bowel obstruction. IMPRESSION: Negative CT scan abdomen and pelvis. No adverse change compared to old exam.
[2021-09-27] MEDS ORDERED: CEPHALEXIN 500 MG CAP PO STA (21:48)
--- NOTE | 2021-09-27 21:50 | ED ---
General Adult HPI - General Chief complaint: Urogenital Stated complaint: Vomiting,Abd Pain Time Seen by Provider: 09/27/21 17:44 Source: patient Mode of arrival: ambulatory Limitations: no limitations - History of Present Illness Initial comments: Patient is a 36 year old female with a past medical history significant for colitis, urinary tract infection, kidney infection, kidney stone, and interstitial cystitis who presents to the emergency department with a chief complaint of pelvic pain. Patient states the pain started 2 days ago on both sides of the pelvis. Pain radiates to the back. Patient states she is experiencing burning with urination. She denies increased urinary frequency/urgency. She denies blood in the urine. Denies vaginal discharge and has no concern for sexual she has been infections however this was ordered in triage. Denies fever, chills, chest pain, shortness of breath, abdominal pain, nausea, and vomiting. Patient follows with urologist Dr. Sherman. She has history of appendectomy, hysterectomy, and tubal ligation. - Related Data Home Medications Medication Instructions Recorded Confirmed Acetaminophen Tab [Tylenol Tab] 1,000 mg PO Q6HR PRN 08/12/21 08/12/21 Previous Rx's Medication Instructions Recorded Sulfamethox-Tmp 800-160Mg [Bactrim 1 each PO Q12HR #14 tab 08/12/21 DS 800-160 mg] methylPREDNISolone Dose Pack 24 mg PO DAILY #1 tab 08/12/21 [Medrol Dose Pack] Cephalexin [Keflex] 500 mg PO Q6HR #20 cap 09/27/21 Allergies Allergy/AdvReac Type Severity Reaction Status Date / Time metoclopramide [From Reglan] AdvReac Mild Rapid Verified 09/27/21 17:05 Heart Rate prochlorperazine maleate AdvReac Rapid Verified 09/27/21 17:05 [From Compazine] Heart Rate Review of Systems ROS Statement: Those systems with pertinent positive or pertinent negative responses have been documented in the HPI. ROS Other: All systems not noted in ROS Statement are negative. Past Medical History Past Medical History: No Reported History Additional Past Medical History / Comment(s): COLITIS, uti's, kidney infections, interstitial cystitis, kidney stones, RECTAL BLEEDING. covid 02/01 History of Any Multi-Drug Resistant Organisms: None Reported Past Surgical History: Appendectomy, Cholecystectomy, Hysterectomy, Tubal Ligation Additional Past Surgical History / Comment(s): novasure ENDOMETRIAL ABLATION, COLONOSCOPY Past Anesthesia/Blood Transfusion Reactions: No Reported Reaction Past Psychological History: No Psychological Hx Reported Smoking Status: Never smoker Past Alcohol Use History: None Reported Past Drug Use History: None Reported, Marijuana - Past Family History Father Family Medical History: No Reported History Mother Family Medical History: Cancer Additional Family Medical History / Comment(s): COLON CANCER General Exam Limitations: no limitations General appearance: alert Head exam: Present: atraumatic, normocephalic, normal inspection Eye exam: Present: normal appearance, PERRL, EOMI. Absent: scleral icterus, conjunctival injection, periorbital swelling Respiratory exam: Present: normal lung sounds bilaterally. Absent: respiratory distress, wheezes, rales, rhonchi, stridor Cardiovascular Exam: Present: regular rate, normal rhythm, normal heart sounds. Absent: systolic murmur, diastolic murmur, rubs, gallop, clicks GI/Abdominal exam: Present: soft, tenderness (suprapubic and to a lesser extent, lower abdomen ), normal bowel sounds. Absent: distended, guarding, rebound, rigid Back exam: Absent: CVA tenderness (R), CVA tenderness (L) Neurological exam: Present: alert, oriented X3, CN II-XII intact Psychiatric exam: Present: normal affect, normal mood Skin exam: Present: warm, dry, intact, normal color. Absent: rash Course Vital Signs 09/27/21 09/27/21 17:02 22:32 Temperature 98.8 F 97.8 F Pulse Rate 85 85 Respiratory 18 18 Rate Blood Pressure 129/86 98/72 O2 Sat by Pulse 100 98 Oximetry Medical Decision Making - Medical Decision Making This is a 36-year-old female presenting with pelvic pain and burning with urination. Thorough history and examination were performed. Vitals are within normal limits. The abdomen is soft. There is moderate tenderness in the suprapubic region and to a lesser extent, the lower abdomen. When I palpate suprapubic region patient states it feels like a urinary tract infection. There is no CVA tenderness. Given patient's abdominal tenderness on exam and history of colitis I will obtain CT of the abdomen and pelvis. CBC and CMP are within normal limits. Urinalysis does not reveal bacteria but does show 17 red blood cells which does not appear to be unusual for patient's urine. There are also 12 WBCs and contamination by [address] of the abdomen and pelvis is negative for acute process. Results discussed with patient. Given patient's history of interstitial cystitis and lack of bacteria on urinalysis it is unknown if this is urinary tract infection. Culture pending. With patient's presentation I will send her home with antibiotics for possible urinary tract infection. I also offered Pyridium however patient declines. Patient instructed to follow-up with her primary care provider and urologist. Return parameters discussed. Patient verbalizes understanding and is agreeable to this plan. Dr. Reyes is my attending. - Lab Data Result diagrams: 09/27/21 19:50 09/27/21 19:50 Lab Results 09/27/21 09/27/21 09/27/21 Range/Units 17:06 18:16 18:16 WBC (3.8-10.6) k/uL RBC (3.80-5.40) m/uL Hgb (11.4-16.0) gm/dL Hct (34.0-46.0) % MCV (80.0-100.0) fL MCH (25.0-35.0) pg MCHC (31.0-37.0) g/dL RDW (11.5-15.5) % Plt Count (150-450) k/uL MPV Neutrophils % % Lymphocytes % % Monocytes % % Eosinophils % % Basophils % % Neutrophils # (1.3-7.7) k/uL Lymphocytes # (1.0-4.8) k/uL Monocytes # (0-1.0) k/uL Eosinophils # (0-0.7) k/uL Basophils # (0-0.2) k/uL Sodium (137-145) mmol/L Potassium (3.5-5.1) mmol/L Chloride (98-107) mmol/L Carbon Dioxide (22-30) mmol/L Anion Gap mmol/L BUN (7-17) mg/dL Creatinine (0.52-1.04) mg/dL Est GFR (CKD-EPI)AfAm (>60 ml/min/1.73 sqM) Est GFR (CKD-EPI)NonAf (>60 ml/min/1.73 sqM) Glucose (74-99) mg/dL Calcium (8.4-10.2) mg/dL Total Bilirubin (0.2-1.3) mg/dL AST (14-36) U/L ALT (4-34) U/L Alkaline Phosphatase (38-126) U/L Total Protein (6.3-8.2) g/dL Albumin (3.5-5.0) g/dL Lipase (23-300) U/L Urine Color Yellow Urine Appearance Cloudy H (Clear) Urine pH 6.5 (5.0-8.0) Ur Specific [place] 1.025 (1.001-1.035) Urine Protein Negative (Negative) Urine Glucose (UA) Negative (Negative) Urine Ketones Negative (Negative) Urine Blood Moderate H (Negative) Urine Nitrite Negative (Negative) Urine Bilirubin Negative (Negative) Urine Urobilinogen 2.0 (<2.0) mg/dL Ur Leukocyte Esterase Small H (Negative) Urine RBC 17 H (0-5) /hpf Urine WBC 12 H (0-5) /hpf Ur Squamous Epith Cells 11 H (0-4) /hpf Hyaline Casts 4 H (0-2) /lpf Urine Mucus Occasional H (None) /hpf Chlamydia Source Vagina Chlamydia DNA (PCR) Negative (Neg,Equiv) N. gonorrhoeae Source Vagina N.gonorrhoeae DNA Probe Negative (Neg,Equiv) 09/27/21 09/27/21 Range/Units 19:50 19:50 WBC 9.3 (3.8-10.6) k/uL RBC 4.19 (3.80-5.40) m/uL Hgb 14.1 (11.4-16.0) gm/dL Hct 41.1 (34.0-46.0) % MCV 98.3 (80.0-100.0) fL MCH 33.6 (25.0-35.0) pg MCHC 34.2 (31.0-37.0) g/dL RDW 12.1 (11.5-15.5) % Plt Count 355 (150-450) k/uL MPV 6.9 Neutrophils % 55 % Lymphocytes % 36 % Monocytes % 4 % Eosinophils % 2 % Basophils % 1 % Neutrophils # 5.1 (1.3-7.7) k/uL Lymphocytes # 3.3 (1.0-4.8) k/uL Monocytes # 0.4 (0-1.0) k/uL Eosinophils # 0.2 (0-0.7) k/uL Basophils # 0.1 (0-0.2) k/uL Sodium 138 (137-145) mmol/L Potassium 4.4 (3.5-5.1) mmol/L Chloride 103 (98-107) mmol/L Carbon Dioxide 27 (22-30) mmol/L Anion Gap 8 mmol/L BUN 11 (7-17) mg/dL Creatinine 0.72 (0.52-1.04) mg/dL Est GFR (CKD-EPI)AfAm >90 (>60 ml/min/1.73 sqM) Est GFR (CKD-EPI)NonAf >90 (>60 ml/min/1.73 sqM) Glucose 84 (74-99) mg/dL Calcium 9.8 (8.4-10.2) mg/dL Total Bilirubin 0.4 (0.2-1.3) mg/dL AST 25 (14-36) U/L ALT 14 (4-34) U/L Alkaline Phosphatase 72 (38-126) U/L Total Protein 8.2 (6.3-8.2) g/dL Albumin 5.0 (3.5-5.0) g/dL Lipase 68 (23-300) U/L Urine Color Urine Appearance (Clear) Urine pH (5.0-8.0) Ur Specific [place] (1.001-1.035) Urine Protein (Negative) Urine Glucose (UA) (Negative) Urine Ketones (Negative) Urine Blood (Negative) Urine Nitrite (Negative) Urine Bilirubin (Negative) Urine Urobilinogen (<2.0) mg/dL Ur Leukocyte Esterase (Negative) Urine RBC (0-5) /hpf Urine WBC (0-5) /hpf Ur Squamous Epith Cells (0-4) /hpf Hyaline Casts (0-2) /lpf Urine Mucus (None) /hpf Chlamydia Source Chlamydia DNA (PCR) (Neg,Equiv) N. gonorrhoeae Source N.gonorrhoeae DNA Probe (Neg,Equiv) Disposition Clinical Impression: Pelvic pain, Burning with urination, Back pain Disposition: HOME SELF-CARE Condition: Good Instructions (If sedation given, give patient instructions): Urinary Tract Infection in Women (ED) Additional Instructions: Take antibiotic as directed. Take Tylenol or Motrin for pain. Applying warm compress may also help symptoms. Follow up with urologist in 1-2 days. Return to the emergency department if you experience new, concerning, or worsening symptoms. Prescriptions: Cephalexin [Keflex] 500 mg PO Q6HR #20 cap Is patient prescribed a controlled substance at d/c from ED?: No Referrals: Mara Jakc MD [Primary Care Provider] - 1-2 days
[2021-09-27 22:33] VITALS: BP 98/72; TEMP 97.8
[2021-09-28 14:45] LABS: N. gonorrhoeae,PCR Negative (Neg,Equiv); Neisseria Source Vagina
[2021-09-28 15:07] LABS: C. trachomatis,PCR Negative (Neg,Equiv); Chlamydia trachomatis Source Vagina
== END 2021-09-27 22:35 | disposition home or self-care (01) ==
LOC: EC 16:29
DX: R10.2 Pelvic and perineal pain (principal); R30.9 Painful micturition, unspecified; M54.9 Dorsalgia, unspecified; Z86.16 Personal history of COVID-19; Z87.442 Personal history of urinary calculi; Z90.49 Acquired absence of other specified parts of digestive tract
CPT/HCPCS: 36415; 80053; 83690; 85025; 81001; 87491; 87591; 87070; 87086; 87077; 87186; 74176; 99284; 96374; 96375; 96361; J2405; J1170

== ENCOUNTER 2021-12-02 14:18 | Emergency (ER) | payer OTHER ==
[2021-12-02] MEDS ORDERED: diphenhydrAMINE 50 MG/ML 1 ML VIAL IVP STA (14:56)
[2021-12-02] MEDS ORDERED: SODIUM CHLORIDE 0.9% 1,000 ML IV STA (14:56)
[2021-12-02] MEDS ORDERED: KETOROLAC 15 MG/ML 1 ML VIAL IVP STA (14:56)
[2021-12-02] MEDS ORDERED: ONDANSETRON 4 MG/2 ML VIAL IVP STA ×2 (14:56→17:07)
--- NOTE | 2021-12-02 15:05 | ED ---
Female Urogenital HPI - General Chief complaint: Urogenital Stated complaint: vomiting Time Seen by Provider: 12/02/21 14:40 Source: patient, RN notes reviewed Mode of arrival: ambulatory Limitations: no limitations - History of Present Illness Initial comments: This is a 36-year-old female who presents to the emergency department for burning with urination, nausea, and vomiting. Symptoms have been present for 2 days. States that she has a history of kidney stones, most recently in May of this year. Also reports associated flank pain, more so on the right. Denies any fevers. States that she has had some pink discoloration to her urine. Denies any fevers, chills, sore throat, cough, dyspnea, chest pain, palpitations, diarrhea, or headaches. MD Complaint: dysuria Onset/Timin -: days(s) - Related Data Home Medications Medication Instructions Recorded Confirmed Acetaminophen Tab [Tylenol Tab] 1,000 mg PO Q6HR PRN 08/12/21 08/12/21 Previous Rx's Medication Instructions Recorded Sulfamethox-Tmp 800-160Mg [Bactrim 1 each PO Q12HR #14 tab 08/12/21 DS 800-160 mg] methylPREDNISolone Dose Pack 24 mg PO DAILY #1 tab 08/12/21 [Medrol Dose Pack] Cephalexin [Keflex] 500 mg PO Q6HR #20 cap 09/27/21 Ciprofloxacin HCl [Cipro] 500 mg PO Q12HR #20 tablet 10/22/21 Ketorolac [Toradol] 10 mg PO Q6HR PRN #12 tab 12/02/21 Ondansetron Odt [Zofran Odt] 4 mg PO Q8HR PRN #20 tab 12/02/21 Allergies Allergy/AdvReac Type Severity Reaction Status Date / Time metoclopramide [From Reglan] AdvReac Mild Rapid Verified 12/02/21 14:36 Heart Rate prochlorperazine maleate AdvReac Rapid Verified 12/02/21 14:36 [From Compazine] Heart Rate Review of Systems ROS Statement: Those systems with pertinent positive or pertinent negative responses have been documented in the HPI. ROS Other: All systems not noted in ROS Statement are negative. Past Medical History Past Medical History: No Reported History Additional Past Medical History / Comment(s): COLITIS, uti's, kidney infections, interstitial cystitis, kidney stones, RECTAL BLEEDING. covid 02/01 History of Any Multi-Drug Resistant Organisms: None Reported Past Surgical History: Appendectomy, Cholecystectomy, Hysterectomy, Tubal Ligation Additional Past Surgical History / Comment(s): novasure ENDOMETRIAL ABLATION, COLONOSCOPY Past Anesthesia/Blood Transfusion Reactions: No Reported Reaction Past Psychological History: No Psychological Hx Reported Smoking Status: Never smoker Past Alcohol Use History: None Reported Past Drug Use History: None Reported, Marijuana - Past Family History Father Family Medical History: No Reported History Mother Family Medical History: Cancer Additional Family Medical History / Comment(s): COLON CANCER General Exam Limitations: no limitations General appearance: alert, in no apparent distress Head exam: Present: atraumatic, normocephalic, normal inspection Respiratory exam: Present: normal lung sounds bilaterally. Absent: respiratory distress, wheezes, rales, rhonchi, stridor Cardiovascular Exam: Present: regular rate, normal rhythm, normal heart sounds. Absent: systolic murmur, diastolic murmur, rubs, gallop, clicks GI/Abdominal exam: Present: soft, normal bowel sounds. Absent: distended, tenderness, guarding, rebound, rigid Back exam: Present: CVA tenderness (R), CVA tenderness (L) Neurological exam: Present: alert, oriented X3, CN II-XII intact Psychiatric exam: Present: normal affect, normal mood Skin exam: Present: warm, dry, intact, normal color. Absent: rash Course Vital Signs 12/02/21 12/02/21 14:34 17:37 Temperature 98.3 F 98.6 F Pulse Rate 86 79 Respiratory 16 18 Rate Blood Pressure 126/76 111/71 O2 Sat by Pulse 99 98 Oximetry Medical Decision Making - Medical Decision Making This is a 36-year-old female who presents to the emergency department for dysuria, flank pain, and vomiting. Lab work was nonactionable. Computed tomography scan of the abdomen and pelvis reveals no signs of a ureteral calculus or other finding to explain the patient's symptoms. Symptoms were controlled in the emergency department and she was discharged with Zofran and Toradol. Instructed her to follow-up with her primary care provider for reevaluation ongoing symptoms. Return precautions reviewed in depth, the patient is instructed to return to the emergency department with any new, worsening, or concerning symptoms. Patient verbalized understanding. This case was discussed in detail with the attending ED physician. Presentation, findings, and treatment plan discussed in detail as well. - Lab Data Result diagrams: 12/02/21 15:40 12/02/21 15:40 Lab Results 12/02/21 12/02/21 12/02/21 Range/Units 15:40 15:40 15:40 WBC 8.3 (3.8-10.6) k/uL RBC 4.31 (3.80-5.40) m/uL Hgb 13.6 (11.4-16.0) gm/dL Hct 40.9 (34.0-46.0) % MCV 94.9 (80.0-100.0) fL MCH 31.6 (25.0-35.0) pg MCHC 33.3 (31.0-37.0) g/dL RDW 11.4 L (11.5-15.5) % Plt Count 357 (150-450) k/uL MPV 7.2 Neutrophils % 60 % Lymphocytes % 31 % Monocytes % 6 % Eosinophils % 2 % Basophils % 1 % Neutrophils # 4.9 (1.3-7.7) k/uL Lymphocytes # 2.5 (1.0-4.8) k/uL Monocytes # 0.5 (0-1.0) k/uL Eosinophils # 0.2 (0-0.7) k/uL Basophils # 0.1 (0-0.2) k/uL Sodium (137-145) mmol/L Potassium (3.5-5.1) mmol/L Chloride (98-107) mmol/L Carbon Dioxide (22-30) mmol/L Anion Gap mmol/L BUN (7-17) mg/dL Creatinine (0.52-1.04) mg/dL Est GFR (CKD-EPI)AfAm (>60 ml/min/1.73 sqM) Est GFR (CKD-EPI)NonAf (>60 ml/min/1.73 sqM) Glucose (74-99) mg/dL Calcium (8.4-10.2) mg/dL Total Bilirubin (0.2-1.3) mg/dL AST (14-36) U/L ALT (4-34) U/L Alkaline Phosphatase (38-126) U/L Total Protein (6.3-8.2) g/dL Albumin (3.5-5.0) g/dL Amylase (30-110) U/L Lipase (23-300) U/L Urine Color Yellow Urine Appearance Clear (Clear) Urine pH 5.5 (5.0-8.0) Ur Specific [place] 1.026 (1.001-1.035) Urine Protein Trace H (Negative) Urine Glucose (UA) Negative (Negative) Urine Ketones 2+ H (Negative) Urine Blood Moderate H (Negative) Urine Nitrite Negative (Negative) Urine Bilirubin Negative (Negative) Urine Urobilinogen <2.0 (<2.0) mg/dL Ur Leukocyte Esterase Negative (Negative) Urine RBC 2 (0-5) /hpf Urine WBC 3 (0-5) /hpf Ur Squamous Epith Cells 1 (0-4) /hpf Urine Mucus Many H (None) /hpf Urine HCG, Qual Not Detected (Not Detectd) 12/02/21 Range/Units 15:40 WBC (3.8-10.6) k/uL RBC (3.80-5.40) m/uL Hgb (11.4-16.0) gm/dL Hct (34.0-46.0) % MCV (80.0-100.0) fL MCH (25.0-35.0) pg MCHC (31.0-37.0) g/dL RDW (11.5-15.5) % Plt Count (150-450) k/uL MPV Neutrophils % % Lymphocytes % % Monocytes % % Eosinophils % % Basophils % % Neutrophils # (1.3-7.7) k/uL Lymphocytes # (1.0-4.8) k/uL Monocytes # (0-1.0) k/uL Eosinophils # (0-0.7) k/uL Basophils # (0-0.2) k/uL Sodium 134 L (137-145) mmol/L Potassium 4.2 (3.5-5.1) mmol/L Chloride 103 (98-107) mmol/L Carbon Dioxide 21 L (22-30) mmol/L Anion Gap 10 mmol/L BUN 10 (7-17) mg/dL Creatinine 0.60 (0.52-1.04) mg/dL Est GFR (CKD-EPI)AfAm >90 (>60 ml/min/1.73 sqM) Est GFR (CKD-EPI)NonAf >90 (>60 ml/min/1.73 sqM) Glucose 82 (74-99) mg/dL Calcium 9.4 (8.4-10.2) mg/dL Total Bilirubin 0.9 (0.2-1.3) mg/dL AST 28 (14-36) U/L ALT 14 (4-34) U/L Alkaline Phosphatase 68 (38-126) U/L Total Protein 8.0 (6.3-8.2) g/dL Albumin 5.1 H (3.5-5.0) g/dL Amylase 86 (30-110) U/L Lipase 53 (23-300) U/L Urine Color Urine Appearance (Clear) Urine pH (5.0-8.0) Ur Specific [place] (1.001-1.035) Urine Protein (Negative) Urine Glucose (UA) (Negative) Urine Ketones (Negative) Urine Blood (Negative) Urine Nitrite (Negative) Urine Bilirubin (Negative) Urine Urobilinogen (<2.0) mg/dL Ur Leukocyte Esterase (Negative) Urine RBC (0-5) /hpf Urine WBC (0-5) /hpf Ur Squamous Epith Cells (0-4) /hpf Urine Mucus (None) /hpf Urine HCG, Qual (Not Detectd) - Radiology Data Radiology results: report reviewed, image reviewed Disposition Clinical Impression: Right flank pain Disposition: HOME SELF-CARE Instructions (If sedation given, give patient instructions): Flank Pain (ED) Additional Instructions: Return to the emergency department with any new, worsening, or concerning symptoms. The Zofran can be taken up to every 8 hours as needed for nausea and vomiting. Take the Toradol up to every 6 hours as needed for pain. Do not take this with Ibuprofen or another antiinflammatory. You may take this with Tylenol. Follow up with your primary care provider in 1-2 days. Prescriptions: Ketorolac [Toradol] 10 mg PO Q6HR PRN #12 tab PRN Reason: Pain Ondansetron Odt [Zofran Odt] 4 mg PO Q8HR PRN #20 tab PRN Reason: Nausea And Vomiting Is patient prescribed a controlled substance at d/c from ED?: No Referrals: None,Stated [Primary Care Provider] - 1-2 days
[2021-12-02 16:01] LABS: ALT 14 U/L (4-34); AST 28 U/L (14-36); African American GFR (CKD) >90 (>60 ml/min/1.73 sqM); Albumin 5.1 g/dL (3.5-5.0); Alkaline Phosphatase 68 U/L (38-126); Amylase 86 U/L (30-110); Anion Gap 10 mmol/L; Blood Urea Nitrogen 10 mg/dL (7-17); Calcium 9.4 mg/dL (8.4-10.2); Carbon Dioxide 21 mmol/L (22-30); Chloride 103 mmol/L (98-107); Glucose 82 mg/dL (74-99); Lipase 53 U/L (23-300); Non-African American GFR(CKD) >90 (>60 ml/min/1.73 sqM); Potassium 4.2 mmol/L (3.5-5.1); Sodium 134 mmol/L (137-145); Total Bilirubin 0.9 mg/dL (0.2-1.3)
[2021-12-02 16:11] LABS: Basophils # (A) 0.1 k/uL (0-0.2); Basophils % (A) 1 %; Eosinophils # (A) 0.2 k/uL (0-0.7); Eosinophils % (A) 2 %; HCT 40.9 % (34.0-46.0); HGB 13.6 gm/dL (11.4-16.0); Lymphocytes # (A) 2.5 k/uL (1.0-4.8); Lymphocytes % (A) 31 %; MCH 31.6 pg (25.0-35.0); MCHC 33.3 g/dL (31.0-37.0); MCV 94.9 fL (80.0-100.0); Mean Platelet Volume 7.2; Monocytes # (A) 0.5 k/uL (0-1.0); Monocytes % (A) 6 %; Neutrophils # (A) 4.9 k/uL (1.3-7.7); Neutrophils % (A) 60 %; Platelet Count 357 k/uL (150-450); RBC 4.31 m/uL (3.80-5.40); RDW 11.4 % (11.5-15.5); WBC 8.3 k/uL (3.8-10.6)
[2021-12-02 16:13] LABS: Appearance,Urine Clear (Clear); Bilirubin,Urine Negative (Negative); Blood,Urine Moderate (Negative); Color,Urine Yellow; Glucose,Urine (UA) Negative (Negative); Leukocyte Esterase,Urine Negative (Negative); Mucus,Urine Many /hpf; Nitrite,Urine Negative (Negative); PH, Urine 5.5 (5.0-8.0); Protein,Urine Trace (Negative); RBC,Urine 2 /hpf (0-5); Specific Gravity,Urine 1.026 (1.001-1.035); Squamous Epithelial Cell,Urine 1 /hpf (0-4); Urobilinogen,Urine <2.0 mg/dL (<2.0); WBC,Urine 3 /hpf (0-5)
[2021-12-02 16:14] LABS: Ketones,Urine 2+ (Negative)
--- NOTE | 2021-12-02 16:38 | CT ---
EXAMINATION TYPE: CT abdomen pelvis wo con DATE OF EXAM: 12/02/2021 COMPARISON: 10/22/2021 INDICATION: right flank pain DLP: 503.9 mGycm, Automated exposure control for dose reduction was used. CONTRAST: 0 mL of Isovue 300. Study performed without Oral Contrast TECHNIQUE: Axial images were obtained from above the diaphragm to the pubic rami in the axial plane a t 5 mm thick sections. Reconstructed images are reviewed on the computer in the coronal plane. FINDINGS: Limited CT sections are obtained the lung bases. The lung bases are clear. CT ABDOMEN: Liver: Normal Spleen: Normal Pancreas: Normal Adrenal glands: The adrenal glands are normal. Gallbladder: Surgically absent Kidneys: No masses are evident. No hydronephrosis is present. No cysts are present. Renal stones a re not identified. Aorta: Normal Inferior vena cava: Normal. CT PELVIS: Loops of bowel within the abdomen and pelvis are normal. Study is without oral contrast limiting bowel evaluation. Appendix: Not identified. No dilated tubular structure or inflammatory changes evident. Clinical florentino gement of any suspected appendicitis will be required. Urinary bladder: Normal. Genitourinary structures: Uterus and ovaries are not clearly identified. Osseous structures: No suspicious lytic or sclerotic lesions are evident. IMPRESSIONS: 1. No suspicious abnormalities to account for right flank pain
[2021-12-02] MEDS ORDERED: MORPHINE SULFATE 2 MG/ML SYRINGE IVP STA (16:41)
[2021-12-02] MEDS ORDERED: ACET/COD 300 MG/30 MG STARTER PACK 6 TAB BTL PO STA (16:54)
[2021-12-02 17:38] VITALS: BP 111/71; PULSE 79; RESP 18; TEMP 98.6
== END 2021-12-02 17:39 | disposition home or self-care (01) ==
LOC: EC 14:18
DX: R10.9 Unspecified abdominal pain (principal); Z88.8 Allergy status to other drugs, medicaments and biological substances; Z88.6 Allergy status to analgesic agent
CPT/HCPCS: 36415; 80053; 82150; 83690; 85025; 81001; 81025; 74176; 99284; 96374; 96375; 96361; J1200; J2405; J2270; J1885

== ENCOUNTER 2022-02-13 11:47 | Emergency (ER) | payer OTHER ==
[2022-02-13 12:20] VITALS: TEMP 98.8
[2022-02-13] MEDS ORDERED: ONDANSETRON 4 MG/2 ML VIAL IVP STA (12:38)
[2022-02-13] MEDS ORDERED: SODIUM CHLORIDE 0.9% 1,000 ML IV STA (12:38)
[2022-02-13] MEDS ORDERED: KETOROLAC 15 MG/ML 1 ML VIAL IVP STA (12:39)
[2022-02-13] MEDS ORDERED: PHENAZOPYRIDINE 200 MG TAB PO STA (12:40)
--- NOTE | 2022-02-13 13:29 | ED ---
General Adult HPI - General Chief complaint: Nausea/Vomiting/Diarrhea Stated complaint: vomiting, urogenital Time Seen by Provider: 02/13/22 12:22 Source: patient Mode of arrival: ambulatory Limitations: no limitations - History of Present Illness Initial comments: Patient is a 36-year-old female presents to the emergency department with chief complaint of vomiting. Patient states since yesterday she has experienced flu symptoms which include headache, chills, runny nose, vomiting. Patient also reports suprapubic tenderness and burning with urination. States it feels like a urinary tract infection. Patient also reports right flank pain. Denies fever, increased urinary urgency/emergency, blood in urine, constipation, diarrhea.. Patient follows with Dr. Evans for kidney stones. States her last kidney stone was in September. She denies alcohol and drug use including marijuana. - Related Data Home Medications Medication Instructions Recorded Confirmed Acetaminophen Tab [Tylenol Tab] 1,000 mg PO Q6HR PRN 08/12/21 08/12/21 Previous Rx's Medication Instructions Recorded Sulfamethox-Tmp 800-160Mg [Bactrim 1 each PO Q12HR #14 tab 08/12/21 DS 800-160 mg] methylPREDNISolone Dose Pack 24 mg PO DAILY #1 tab 08/12/21 [Medrol Dose Pack] Cephalexin [Keflex] 500 mg PO Q6HR #20 cap 09/27/21 Ciprofloxacin HCl [Cipro] 500 mg PO Q12HR #20 tablet 10/22/21 Ketorolac [Toradol] 10 mg PO Q6HR PRN #12 tab 12/02/21 Ondansetron Odt [Zofran Odt] 4 mg PO Q8HR PRN #20 tab 12/02/21 Cephalexin [Keflex] 250 mg PO Q6HR #20 cap 02/13/22 Ibuprofen [Motrin] 800 mg PO Q6HR PRN #30 tab 02/13/22 Ondansetron Odt [Zofran Odt] 4 mg PO Q8HR PRN #10 tab 02/13/22 Allergies Allergy/AdvReac Type Severity Reaction Status Date / Time metoclopramide [From Reglan] AdvReac Mild Rapid Verified 02/13/22 12:20 Heart Rate prochlorperazine maleate AdvReac Rapid Verified 02/13/22 12:20 [From Compazine] Heart Rate Review of Systems ROS Statement: Those systems with pertinent positive or pertinent negative responses have been documented in the HPI. ROS Other: All systems not noted in ROS Statement are negative. Past Medical History Past Medical History: No Reported History Additional Past Medical History / Comment(s): COLITIS, uti's, kidney infections, interstitial cystitis, kidney stones, RECTAL BLEEDING. covid 02/01 History of Any Multi-Drug Resistant Organisms: None Reported Past Surgical History: Appendectomy, Cholecystectomy, Hysterectomy, Tubal Ligation Additional Past Surgical History / Comment(s): novasure ENDOMETRIAL ABLATION, COLONOSCOPY Past Anesthesia/Blood Transfusion Reactions: No Reported Reaction Past Psychological History: No Psychological Hx Reported Smoking Status: Never smoker Past Alcohol Use History: None Reported Past Drug Use History: None Reported, Marijuana - Past Family History Father Family Medical History: No Reported History Mother Family Medical History: Cancer Additional Family Medical History / Comment(s): COLON CANCER General Exam Limitations: no limitations General appearance: alert, in no apparent distress Head exam: Present: atraumatic, normocephalic, normal inspection Eye exam: Present: normal appearance, PERRL, EOMI. Absent: scleral icterus, conjunctival injection, periorbital swelling Neck exam: Present: normal inspection. Absent: tenderness, meningismus, lymphadenopathy Respiratory exam: Present: normal lung sounds bilaterally. Absent: respiratory distress, wheezes, rales, rhonchi, stridor Cardiovascular Exam: Present: regular rate, normal rhythm, normal heart sounds. Absent: systolic murmur, diastolic murmur, rubs, gallop, clicks GI/Abdominal exam: Present: soft, tenderness (Suprapubic), normal bowel sounds. Absent: distended, guarding, rebound, rigid Back exam: Present: normal inspection, full ROM, CVA tenderness (R). Absent: CVA tenderness (L), paraspinal tenderness, vertebral tenderness Neurological exam: Present: alert, oriented X3, CN II-XII intact Psychiatric exam: Present: normal affect, normal mood Course Vital Signs 02/13/22 12:18 Temperature 98.8 F Pulse Rate 80 Respiratory 20 Rate Blood Pressure 135/80 O2 Sat by Pulse 99 Oximetry Medical Decision Making - Medical Decision Making This is a 36-year-old female presenting for evaluation of vomiting. Vitals stable. Afebrile. Laboratory studies obtained and are within normal limits. There is no leukocytosis. Urinalysis contaminated by squamous cells but shows rare bacteria and [address] the abdomen and pelvis without contrast was obtained and interpreted by me which shows evidence of chronic colitis in the right colon. Patient does not have RLQ pain or fever. There is moderate stool burden throughout the colon and no other findngs to suggest acute abdominal process. There is no evidence of hydronephrosis or obstructive uropathy. Pain and nausea controlled. Results discussed with patient. In the setting of burning with urination I will treat patient for possible urinary tract infection. Patient will be discharged with Keflex, Motrin, and Zofran. First dose of Keflex given in the emergency department. Return parameters discussed. Dr. Markham is my attending. - Lab Data Result diagrams: 02/13/22 13:17 02/13/22 13:17 Lab Results 02/13/22 02/13/22 02/13/22 Range/Units 13:17 13:17 13:17 WBC 7.4 (3.8-10.6) k/uL RBC 3.82 (3.80-5.40) m/uL Hgb 12.7 (11.4-16.0) gm/dL Hct 36.0 (34.0-46.0) % MCV 94.4 (80.0-100.0) fL MCH 33.4 (25.0-35.0) pg MCHC 35.4 (31.0-37.0) g/dL RDW 11.8 (11.5-15.5) % Plt Count 347 (150-450) k/uL MPV 8.0 Neutrophils % 49 % Lymphocytes % 39 % Monocytes % 5 % Eosinophils % 2 % Basophils % 1 % Neutrophils # 3.7 (1.3-7.7) k/uL Lymphocytes # 2.9 (1.0-4.8) k/uL Monocytes # 0.4 (0-1.0) k/uL Eosinophils # 0.2 (0-0.7) k/uL Basophils # 0.1 (0-0.2) k/uL Sodium 140 (137-145) mmol/L Potassium 4.0 (3.5-5.1) mmol/L Chloride 107 (98-107) mmol/L Carbon Dioxide 26 (22-30) mmol/L Anion Gap 7 mmol/L BUN 11 (7-17) mg/dL Creatinine 0.69 (0.52-1.04) mg/dL Est GFR (CKD-EPI)AfAm >90 (>60 ml/min/1.73 sqM) Est GFR (CKD-EPI)NonAf >90 (>60 ml/min/1.73 sqM) Glucose 82 (74-99) mg/dL Calcium 9.0 (8.4-10.2) mg/dL Total Bilirubin 0.5 (0.2-1.3) mg/dL AST 19 (14-36) U/L ALT 18 (4-34) U/L Alkaline Phosphatase 73 (38-126) U/L Total Protein 7.2 (6.3-8.2) g/dL Albumin 4.5 (3.5-5.0) g/dL Urine Color Yellow Urine Appearance Cloudy H (Clear) Urine pH 6.0 (5.0-8.0) Ur Specific [place] 1.029 (1.001-1.035) Urine Protein Trace H (Negative) Urine Glucose (UA) Negative (Negative) Urine Ketones Negative (Negative) Urine Blood Trace H (Negative) Urine Nitrite Negative (Negative) Urine Bilirubin Negative (Negative) Urine Urobilinogen <2.0 (<2.0) mg/dL Ur Leukocyte Esterase Negative (Negative) Urine RBC 9 H (0-5) /hpf Urine WBC 5 (0-5) /hpf Ur Squamous Epith Cells 36 H (0-4) /hpf Amorphous Sediment Moderate H (None) /hpf Urine Bacteria Few H (None) /hpf Urine Mucus Many H (None) /hpf Urine HCG, Qual (Not Detectd) Coronavirus (PCR) (Not Detectd) Influenza Type A RNA (Not Detectd) Influenza Type B (PCR) (Not Detectd) 02/13/22 02/13/22 02/13/22 Range/Units 13:17 13:17 13:17 WBC (3.8-10.6) k/uL RBC (3.80-5.40) m/uL Hgb (11.4-16.0) gm/dL Hct (34.0-46.0) % MCV (80.0-100.0) fL MCH (25.0-35.0) pg MCHC (31.0-37.0) g/dL RDW (11.5-15.5) % Plt Count (150-450) k/uL MPV Neutrophils % % Lymphocytes % % Monocytes % % Eosinophils % % Basophils % % Neutrophils # (1.3-7.7) k/uL Lymphocytes # (1.0-4.8) k/uL Monocytes # (0-1.0) k/uL Eosinophils # (0-0.7) k/uL Basophils # (0-0.2) k/uL Sodium (137-145) mmol/L Potassium (3.5-5.1) mmol/L Chloride (98-107) mmol/L Carbon Dioxide (22-30) mmol/L Anion Gap mmol/L BUN (7-17) mg/dL Creatinine (0.52-1.04) mg/dL Est GFR (CKD-EPI)AfAm (>60 ml/min/1.73 sqM) Est GFR (CKD-EPI)NonAf (>60 ml/min/1.73 sqM) Glucose (74-99) mg/dL Calcium (8.4-10.2) mg/dL Total Bilirubin (0.2-1.3) mg/dL AST (14-36) U/L ALT (4-34) U/L Alkaline Phosphatase (38-126) U/L Total Protein (6.3-8.2) g/dL Albumin (3.5-5.0) g/dL Urine Color Urine Appearance (Clear) Urine pH (5.0-8.0) Ur Specific [place] (1.001-1.035) Urine Protein (Negative) Urine Glucose (UA) (Negative) Urine Ketones (Negative) Urine Blood (Negative) Urine Nitrite (Negative) Urine Bilirubin (Negative) Urine Urobilinogen (<2.0) mg/dL Ur Leukocyte Esterase (Negative) Urine RBC (0-5) /hpf Urine WBC (0-5) /hpf Ur Squamous Epith Cells (0-4) /hpf Amorphous Sediment (None) /hpf Urine Bacteria (None) /hpf Urine Mucus (None) /hpf Urine HCG, Qual Not Detected (Not Detectd) Coronavirus (PCR) Not Detected (Not Detectd) Influenza Type A RNA Not Detected (Not Detectd) Influenza Type B (PCR) Not Detected (Not Detectd) Disposition Clinical Impression: UTI (urinary tract infection), Nausea and vomiting, Right flank pain, URI (upper respiratory infection) Disposition: HOME SELF-CARE Condition: Poor Instructions (If sedation given, give patient instructions): Urinary Tract Infection in Women (ED) Additional Instructions: Please take medication as directed. Follow-up with primary care provider in 1 to 2 days. Return to the emergency department if you experience new, concerning, or worsening symptoms. Prescriptions: Cephalexin [Keflex] 250 mg PO Q6HR #20 cap Ibuprofen [Motrin] 800 mg PO Q6HR PRN #30 tab PRN Reason: Pain Ondansetron Odt [Zofran Odt] 4 mg PO Q8HR PRN #10 tab PRN Reason: Nausea Is patient prescribed a controlled substance at d/c from ED?: No Referrals: None,Stated [Primary Care Provider] - 1-2 days Time of Disposition: 14:06
[2022-02-13 13:35] LABS: Basophils # (A) 0.1 k/uL (0-0.2); Basophils % (A) 1 %; Eosinophils # (A) 0.2 k/uL (0-0.7); Eosinophils % (A) 2 %; HGB 12.7 gm/dL (11.4-16.0); Lymphocytes # (A) 2.9 k/uL (1.0-4.8); Lymphocytes % (A) 39 %; MCH 33.4 pg (25.0-35.0); MCHC 35.4 g/dL (31.0-37.0); MCV 94.4 fL (80.0-100.0); Monocytes # (A) 0.4 k/uL (0-1.0); Monocytes % (A) 5 %; Neutrophils # (A) 3.7 k/uL (1.3-7.7); Neutrophils % (A) 49 %; Platelet Count 347 k/uL (150-450); RBC 3.82 m/uL (3.80-5.40); RDW 11.8 % (11.5-15.5); WBC 7.4 k/uL (3.8-10.6)
[2022-02-13 13:46] LABS: ALT 18 U/L (4-34); AST 19 U/L (14-36); African American GFR (CKD) >90 (>60 ml/min/1.73 sqM); Albumin 4.5 g/dL (3.5-5.0); Alkaline Phosphatase 73 U/L (38-126); Anion Gap 7 mmol/L; Blood Urea Nitrogen 11 mg/dL (7-17); Carbon Dioxide 26 mmol/L (22-30); Chloride 107 mmol/L (98-107); Glucose 82 mg/dL (74-99); Non-African American GFR(CKD) >90 (>60 ml/min/1.73 sqM); Sodium 140 mmol/L (137-145); Total Bilirubin 0.5 mg/dL (0.2-1.3); Total Protein 7.2 g/dL (6.3-8.2)
--- NOTE | 2022-02-13 13:50 | CT ---
EXAMINATION TYPE: CT abdomen pelvis w con CT DLP: 838.5 mGycm, Automated exposure control for dose reduction was used. DATE OF EXAM: 02/13/2022 1:19 PM COMPARISON: CT abdomen pelvis most recent from 12/02/2021. CLINICAL INDICATION:Female, 36 years old with history of right flank pain; Abdominal pain TECHNIQUE: Axial CT of the abdomen and pelvis. Sagittal and coronal reformats were created on a [employer] workstation. Contrast used:100 mL of Isovue 300 with IV Contrast, Oral contrast used: without Oral Contrast FINDINGS: LOWER CHEST: Unremarkable ABDOMEN LIVER: Diffusely hypoattenuating parenchyma. GALLBLADDER AND BILE DUCTS: The gallbladder is surgically absent. PANCREAS: Unremarkable. SPLEEN: Unremarkable. ADRENAL GLANDS: Unremarkable. KIDNEYS AND URETERS: No evidence of hydronephrosis or renal calculus. The ureters are unremarkable. PELVIS BLADDER: Unremarkable REPRODUCTIVE: Unremarkable. ABDOMEN & PELVIS STOMACH AND BOWEL: No evidence of bowel obstruction. Submucosal fat deposition involving the cecum an d ascending colon. There is mild wall thickening which could be due to nondistention. There is a mode rate amount of stool throughout the colon. The appendix is not definitively visualized PERITONEUM: No evidence of pneumoperitoneum or free fluid. VASCULATURE: No evidence of aortic aneurysm. MUSCULOSKELETAL: No acute osseous abnormalities LYMPH NODES: No gross evidence for lymphadenopathy. SOFT TISSUE/ABDOMINAL WALL: Unremarkable IMPRESSION: 1. Similar circumferential wall thickening of the right colon which could represent chronic colitis. There is moderate stool burden throughout the colon. No other finding to suggest acute abdominal pro cess. Appendix is not definitively visualized. There is no evidence of hydronephrosis or obstructive uropathy 2. Hepatic steatosis.
[2022-02-13 13:52] LABS: Amorphous Sediment,Urine Moderate /hpf; Appearance,Urine Cloudy (Clear); Bacteria,Urine Few /hpf; Bilirubin,Urine Negative (Negative); Blood,Urine Trace (Negative); Color,Urine Yellow; Glucose,Urine (UA) Negative (Negative); Ketones,Urine Negative (Negative); Leukocyte Esterase,Urine Negative (Negative); Mucus,Urine Many /hpf; Nitrite,Urine Negative (Negative); Protein,Urine Trace (Negative); RBC,Urine 9 /hpf (0-5); Specific Gravity,Urine 1.029 (1.001-1.035); Squamous Epithelial Cell,Urine 36 /hpf (0-4); Urobilinogen,Urine <2.0 mg/dL (<2.0); WBC,Urine 5 /hpf (0-5)
[2022-02-13] MEDS ORDERED: CEPHALEXIN 250 MG CAP PO STA (13:56)
[2022-02-13 14:59] VITALS: RESP 16
[2022-02-13 15:01] VITALS: BP 114/75; PULSE 65
== END 2022-02-13 15:01 | disposition home or self-care (01) ==
LOC: EC 11:47
DX: N39.0 Urinary tract infection, site not specified (principal); K76.0 Fatty (change of) liver, not elsewhere classified; R11.2 Nausea with vomiting, unspecified; J06.9 Acute upper respiratory infection, unspecified; F12.90 Cannabis use, unspecified, uncomplicated; Z20.822 Contact with and (suspected) exposure to COVID-19; Z88.8 Allergy status to other drugs, medicaments and biological substances; Z88.9 Allergy status to unspecified drugs, medicaments and biological substances; Z90.49 Acquired absence of other specified parts of digestive tract
CPT/HCPCS: 36415; 80053; 85025; 81001; 81025; 87502; 87635; 74177; 99284; 96374; 96375; 96361; J2405; J1885; Q9967

== ENCOUNTER 2022-03-07 16:32 | Emergency (ER) | payer OTHER ==
[2022-03-07 16:36] VITALS: TEMP 98.4
[2022-03-07] MEDS ORDERED: SODIUM CHLORIDE 0.9% 1,000 ML IV ONE (16:55)
[2022-03-07] MEDS ORDERED: KETOROLAC 15 MG/ML 1 ML VIAL IVP STA (16:55)
[2022-03-07] MEDS ORDERED: ONDANSETRON 4 MG/2 ML VIAL IVP STA (16:55)
--- NOTE | 2022-03-07 17:13 | ED ---
Nausea/Vomiting/Diarrhea HPI - General Chief complaint: Nausea/Vomiting/Diarrhea Stated complaint: Vomiting Time Seen by Provider: 03/07/22 16:47 Source: patient, RN notes reviewed Mode of arrival: ambulatory Limitations: no limitations - History of Present Illness Initial comments: This is a pleasant 36-year-old female with a history of kidney stones, colitis, interstitial cystitis. She presents to the respiratory complaining of dysuria, pelvic pain, right flank pain. She has had several episodes of vomiting. Patient exercises states that this started earlier in the month when she had a visit here. Patient had diagnostic workup here was treated for urinary tract infection with Keflex. Patient states her symptoms continue. She then went [facility] had STD testing. Patient states she had a pelvic exam there as well. She was not given any treatment and states that her testing turned out negative. Patient denying any vaginal discharge. Is complaining of irritative voiding. No headache, no fever or chills, no changes in vision or hearing, no sore throat or difficulty with speech, no neck pain, no chest pain or shortness of breath,no changes in urination or bowel movements, no numbness or tingling, no extremity pain, no skin rashes or lesions. Past medical, surgical, social, and family history reviewed. - Related Data Home Medications Medication Instructions Recorded Confirmed Acetaminophen Tab [Tylenol Tab] 1,000 mg PO Q6HR PRN 08/12/21 08/12/21 Previous Rx's Medication Instructions Recorded Sulfamethox-Tmp 800-160Mg [Bactrim 1 each PO Q12HR #14 tab 08/12/21 DS 800-160 mg] methylPREDNISolone Dose Pack 24 mg PO DAILY #1 tab 08/12/21 [Medrol Dose Pack] Cephalexin [Keflex] 500 mg PO Q6HR #20 cap 09/27/21 Ciprofloxacin HCl [Cipro] 500 mg PO Q12HR #20 tablet 10/22/21 Ketorolac [Toradol] 10 mg PO Q6HR PRN #12 tab 12/02/21 Ondansetron Odt [Zofran Odt] 4 mg PO Q8HR PRN #20 tab 12/02/21 Cephalexin [Keflex] 250 mg PO Q6HR #20 cap 02/13/22 Ibuprofen [Motrin] 800 mg PO Q6HR PRN #30 tab 02/13/22 Ondansetron Odt [Zofran Odt] 4 mg PO Q8HR PRN #10 tab 02/13/22 Doxycycline [Vibramycin] 100 mg PO BID 1 Days #28 each 03/07/22 Fluconazole [Diflucan] 150 mg PO DAILY #2 tab 03/07/22 Ondansetron Odt [Zofran Odt] 4 mg PO Q8H PRN #15 tab 03/07/22 Allergies Allergy/AdvReac Type Severity Reaction Status Date / Time metoclopramide [From Reglan] AdvReac Mild Rapid Verified 03/07/22 16:35 Heart Rate prochlorperazine maleate AdvReac Rapid Verified 03/07/22 16:35 [From Compazine] Heart Rate Review of Systems ROS Statement: Those systems with pertinent positive or pertinent negative responses have been documented in the HPI. ROS Other: All systems not noted in ROS Statement are negative. Past Medical History Past Medical History: No Reported History Additional Past Medical History / Comment(s): COLITIS, uti's, kidney infections, interstitial cystitis, kidney stones, RECTAL BLEEDING. covid 02/01 History of Any Multi-Drug Resistant Organisms: None Reported Past Surgical History: Appendectomy, Cholecystectomy, Hysterectomy, Tubal Ligation Additional Past Surgical History / Comment(s): novasure ENDOMETRIAL ABLATION, COLONOSCOPY Past Anesthesia/Blood Transfusion Reactions: No Reported Reaction Past Psychological History: No Psychological Hx Reported Smoking Status: Never smoker Past Alcohol Use History: None Reported Past Drug Use History: None Reported, Marijuana - Past Family History Father Family Medical History: No Reported History Mother Family Medical History: Cancer Additional Family Medical History / Comment(s): COLON CANCER General Exam - General Exam Comments Initial Comments: Patient appears to be in mild distress secondary to pelvic pain and right flank pain. Patient does not appear to be ill or toxic. Vital signs reviewed. Capillary refill less than 2 seconds. No modeling. Moist mucous membranes. Cranial nerves II through XII grossly intact Limitations: no limitations General appearance: alert, in distress Head exam: Present: atraumatic, normocephalic, normal inspection Eye exam: Present: normal appearance, PERRL, EOMI. Absent: scleral icterus, conjunctival injection, periorbital swelling ENT exam: Present: normal exam, normal oropharynx, mucous membranes moist, normal external ear exam. Absent: mucous membranes dry Neck exam: Present: normal inspection, full ROM. Absent: tenderness, meningismus, lymphadenopathy Respiratory exam: Present: normal lung sounds bilaterally. Absent: respiratory distress, wheezes, rales, rhonchi, stridor, chest wall tenderness, accessory muscle use Cardiovascular Exam: Present: regular rate, normal rhythm, normal heart sounds. Absent: systolic murmur, diastolic murmur, rubs, gallop, clicks GI/Abdominal exam: Present: soft, normal bowel sounds. Absent: distended, tenderness, guarding, rebound, rigid External exam: Present: normal external exam. Absent: erythema, swelling, lesions, lacerations, ecchymosis Speculum exam: Present: erythema, vaginal discharge (White, combination of homogenous white discharge and yeastlike.), cervical discharge, other (Chaperoned pelvic examination by female RNLan.). Absent: normal speculum exam, vaginal bleeding, foreign body, tissue, laceration Extremities exam: Present: normal inspection, full ROM, normal capillary refill. Absent: tenderness, pedal edema, joint swelling, calf tenderness Back exam: Present: normal inspection, CVA tenderness (R). Absent: paraspinal tenderness, vertebral tenderness Neurological exam: Present: alert, oriented X3, CN II-XII intact Psychiatric exam: Present: normal affect, normal mood Skin exam: Present: warm, dry, intact, normal color. Absent: rash Course Vital Signs 03/07/22 03/07/22 16:34 19:30 Temperature 98.4 F Pulse Rate 86 80 Respiratory 18 16 Rate Blood Pressure 139/82 119/73 O2 Sat by Pulse 99 99 Oximetry - Reevaluation(s) Reevaluation #1: 03/07/22 17:32 Patient reevaluated and is essentially unchanged. Reevaluation #2: 03/07/22 19:50 Medical record is reviewed Symptoms are improved here in the emergency department Patient is informed of results and questions answered Patient in no distress Medical Decision Making - Medical Decision Making Was pt. sent in by a medical professional or institution? @ -no Did you speak to anyone other than the patient for history? @ -no Did you review nursing and triage notes? @ -yes Were old charts reviewed? @ -Previous records reviewed Differential Diagnosis? @ -MDM differential pelvic pain: Neck tract infection, pyelonephritis, ureterolithiasis, pelvic inflammatory disease, STI, cervicitis, interstitial cystitis, does not appear to be consistent with ovarian cyst or ovarian torsion. Eyebrow. Likely not related to pyelonephritis or sepsis. This is not an all- inclusive list. EKG interpreted by me (3pts min.)? @ -[none] X-rays interpreted by me (1pt min.)? @ -[none] CT interpreted by me (1pt min.)? @ -[none] U/S interpreted by me (1pt. min.)? @ -[none] What testing was considered but not performed? (CT, X-rays, U/S, labs)? Why? @ [CT, X-rays, U/S, labs? Why?] What meds were considered but not given? Why? @ -[none] Did you discuss the management of the patient with other professionals? @ -[professionals i.e. Dr, PA, CUSTOM FEED MILL OPERATOR HELPER, Lab, RT, Psych Nurse, Ending Machine Operator, Center Director, Teacher, Rn Clinical Documentation Specialist, dependency case manager? Give summary] Did you reconcile home meds? @ -[none] Was smoking cessation discussed for >3mins.? @ -[none] Was critical care preformed (if so, how long)? @ -[none] Were there social determinants of health that impacted care today? How? (Homelessness, low income, unemployed, alcoholism, drug addiction, transportation, low edu. Level, literacy, decrease access to med. care, senior care, rehab)? @ -[Homelessness, low income, unemployed, alcoholism, drug addiction, transportation, low edu. Level, literacy, decrease access to med. care, senior care, rehab?] Was there de-escalation of care discussed even if they declined? (Discuss DNR or withdrawal of care, Hospice)? @ -[Discuss DNR or withdrawal of care, Hospice?] What co-morbidities impacted this encounter? (DM, HTN, Smoking, COPD, CAD, Cancer, CVA, Hep., AIDS, mental health diagnosis, sleep apnea, morbid obesity)? @ -[DM, HTN, Smoking, COPD, CAD, Cancer, CVA, Hep., AIDS, mental health diagnosis, sleep apnea, morbid obesity?] Was patient admitted / discharged? @ -[Mild elevation of her lipase at 374. 12 red blood cells per high-power field. No evidence of infectious process with regards to the urinalysis. Ch [place] 108. Remainder of the CMP is normal. CBC is essentially unremarkable. Discussed all findings with the patient. I'm going to treat the patient for PID as the patient has vaginal discharge with cervical inflammation and some cervical motion tenderness. We will treat with 14 days of doxycycline. Patient was given a 2 g dose of metronidazole. Patient also appears to have vaginal candidiasis. Will treat with Diflucan. Patient is to follow-up with gynecology. On-call security researcher given. Patient can also follow-up with her urologist, Dr. Evans for evaluation of interstitial cystitis.] Undiagnosed new problem with uncertain prognosis? @ -Possible mild PID with cervicitis Drug Therapy requiring intensive monitoring for toxicity (Heparin, Nitro, Insulin, Cardizem)? @ -[none] Were any procedures done? @ -And pelvic examination, chaperoned Diagnosis/symptom? @ -Vaginal discharge, vaginal candidiasis, cervicitis Acute, or Chronic, or Acute on Chronic? @ -Acute Uncomplicated (without systemic symptoms) or Complicated (systemic symptoms)? @ -Uncomplicated Side effects of treatment? @ -[none] Exacerbation, Progression, or Severe Exacerbation] @ -[no] Poses a threat to life or bodily function? @ -Unlikely Patient was told to return to the ER for any signs or symptoms worsen. Told to return immediately if any other problems arise. All questions answered. Treatment plan discussed. Patient in agreement Every effort has been made to ensure accuracy of this dictation. However, due to the limitations of electronic medical records and dictation devices, errors in charting still occur. Supervising physician Dr. Mendoza - Lab Data Result diagrams: 03/07/22 17:04 03/07/22 17:04 Lab Results 03/07/22 03/07/22 03/07/22 Range/Units 16:48 16:48 17:04 WBC 9.0 (3.8-10.6) k/uL RBC 3.90 (3.80-5.40) m/uL Hgb 12.8 (11.4-16.0) gm/dL Hct 37.1 (34.0-46.0) % MCV 95.0 (80.0-100.0) fL MCH 32.8 (25.0-35.0) pg MCHC 34.5 (31.0-37.0) g/dL RDW 11.4 L (11.5-15.5) % Plt Count 329 (150-450) k/uL MPV 7.7 Neutrophils % 58 % Lymphocytes % 29 % Monocytes % 7 % Eosinophils % 3 % Basophils % 1 % Neutrophils # 5.2 (1.3-7.7) k/uL Lymphocytes # 2.6 (1.0-4.8) k/uL Monocytes # 0.6 (0-1.0) k/uL Eosinophils # 0.3 (0-0.7) k/uL Basophils # 0.1 (0-0.2) k/uL ESR 8 (0-20) mm/hr Sodium (137-145) mmol/L Potassium (3.5-5.1) mmol/L Chloride (98-107) mmol/L Carbon Dioxide (22-30) mmol/L Anion Gap mmol/L BUN (7-17) mg/dL Creatinine (0.52-1.04) mg/dL Est GFR (CKD-EPI)AfAm (>60 ml/min/1.73 sqM) Est GFR (CKD-EPI)NonAf (>60 ml/min/1.73 sqM) Glucose (74-99) mg/dL Calcium (8.4-10.2) mg/dL Total Bilirubin (0.2-1.3) mg/dL AST (14-36) U/L ALT (4-34) U/L Alkaline Phosphatase (38-126) U/L Total Protein (6.3-8.2) g/dL Albumin (3.5-5.0) g/dL Lipase (23-300) U/L Urine Color Yellow Urine Appearance Clear (Clear) Urine pH 6.0 (5.0-8.0) Ur Specific [place] 1.019 (1.001-1.035) Urine Protein Negative (Negative) Urine Glucose (UA) Negative (Negative) Urine Ketones Negative (Negative) Urine Blood Moderate H (Negative) Urine Nitrite Negative (Negative) Urine Bilirubin Negative (Negative) Urine Urobilinogen <2.0 (<2.0) mg/dL Ur Leukocyte Esterase Moderate H (Negative) Urine RBC 12 H (0-5) /hpf Urine WBC 5 (0-5) /hpf Ur Squamous Epith Cells 2 (0-4) /hpf Urine Mucus Rare H (None) /hpf Urine HCG, Qual Not Detected (Not Detectd) Trichomonas Ag (Rapid) (Negative) 03/07/22 03/07/22 Range/Units 17:04 17:04 WBC (3.8-10.6) k/uL RBC (3.80-5.40) m/uL Hgb (11.4-16.0) gm/dL Hct (34.0-46.0) % MCV (80.0-100.0) fL MCH (25.0-35.0) pg MCHC (31.0-37.0) g/dL RDW (11.5-15.5) % Plt Count (150-450) k/uL MPV Neutrophils % % Lymphocytes % % Monocytes % % Eosinophils % % Basophils % % Neutrophils # (1.3-7.7) k/uL Lymphocytes # (1.0-4.8) k/uL Monocytes # (0-1.0) k/uL Eosinophils # (0-0.7) k/uL Basophils # (0-0.2) k/uL ESR (0-20) mm/hr Sodium 140 (137-145) mmol/L Potassium 4.2 (3.5-5.1) mmol/L Chloride 108 H (98-107) mmol/L Carbon Dioxide 26 (22-30) mmol/L Anion Gap 6 mmol/L BUN 12 (7-17) mg/dL Creatinine 0.61 (0.52-1.04) mg/dL Est GFR (CKD-EPI)AfAm >90 (>60 ml/min/1.73 sqM) Est GFR (CKD-EPI)NonAf >90 (>60 ml/min/1.73 sqM) Glucose 90 (74-99) mg/dL Calcium 9.5 (8.4-10.2) mg/dL Total Bilirubin 0.3 (0.2-1.3) mg/dL AST 20 (14-36) U/L ALT 16 (4-34) U/L Alkaline Phosphatase 62 (38-126) U/L Total Protein 6.9 (6.3-8.2) g/dL Albumin 4.3 (3.5-5.0) g/dL Lipase 374 H (23-300) U/L Urine Color Urine Appearance (Clear) Urine pH (5.0-8.0) Ur Specific [place] (1.001-1.035) Urine Protein (Negative) Urine Glucose (UA) (Negative) Urine Ketones (Negative) Urine Blood (Negative) Urine Nitrite (Negative) Urine Bilirubin (Negative) Urine Urobilinogen (<2.0) mg/dL Ur Leukocyte Esterase (Negative) Urine RBC (0-5) /hpf Urine WBC (0-5) /hpf Ur Squamous Epith Cells (0-4) /hpf Urine Mucus (None) /hpf Urine HCG, Qual (Not Detectd) Trichomonas Ag (Rapid) Negative (Negative) - Radiology Data Radiology results: report reviewed, image reviewed Independent interpretation of the ultrasound of the kidney, ureter, bladder, pelvic ultrasound as read by me reveals no acute pathology. I did review the radiology interpretation. Disposition Clinical Impression: Pelvic pain, Acute right flank pain, Vaginal candidiasis, Cervicitis Disposition: HOME SELF-CARE Condition: Stable Instructions (If sedation given, give patient instructions): Flank Pain (ED), Vaginal Discharge (ED), Yeast Infection (ED), Pelvic Pain in Women (ED) Additional Instructions: Taking antibiotics as directed. Make an appointment with a security researcher, call tomorrow morning at 8 AM. Follow-up with your regular physician as directed. Return to the ER immediately if any symptoms worsen, new symptoms arise, or any other problems develop. Is patient prescribed a controlled substance at d/c from ED?: No Referrals: Lee Hooker MD [STAFF PHYSICIAN] - 1-2 days Time of Disposition: 20:00
[2022-03-07 17:25] LABS: Basophils # (A) 0.1 k/uL (0-0.2); Basophils % (A) 1 %; Eosinophils # (A) 0.3 k/uL (0-0.7); Eosinophils % (A) 3 %; HCT 37.1 % (34.0-46.0); HGB 12.8 gm/dL (11.4-16.0); Lymphocytes # (A) 2.6 k/uL (1.0-4.8); Lymphocytes % (A) 29 %; MCH 32.8 pg (25.0-35.0); MCHC 34.5 g/dL (31.0-37.0); Mean Platelet Volume 7.7; Monocytes # (A) 0.6 k/uL (0-1.0); Monocytes % (A) 7 %; Neutrophils # (A) 5.2 k/uL (1.3-7.7); Neutrophils % (A) 58 %; Platelet Count 329 k/uL (150-450); RDW 11.4 % (11.5-15.5)
[2022-03-07] MEDS ORDERED: DOXYCYCLINE 100 MG CAP PO STA (17:30)
[2022-03-07] MEDS ORDERED: cefTRIAXone IN SWFI 1,000 MG/10 ML SYRINGE IVP STA (17:30)
[2022-03-07] MEDS ORDERED: metroNIDAZOLE 500 MG TAB PO STA (17:30)
[2022-03-07] MEDS ORDERED: MORPHINE SULFATE 4 MG/ML SYRINGE IV STA (17:30)
[2022-03-07 17:35] LABS: ALT 16 U/L (4-34); AST 20 U/L (14-36); African American GFR (CKD) >90 (>60 ml/min/1.73 sqM); Albumin 4.3 g/dL (3.5-5.0); Alkaline Phosphatase 62 U/L (38-126); Anion Gap 6 mmol/L; Blood Urea Nitrogen 12 mg/dL (7-17); Calcium 9.5 mg/dL (8.4-10.2); Carbon Dioxide 26 mmol/L (22-30); Chloride 108 mmol/L (98-107); Glucose 90 mg/dL (74-99); Lipase 374 U/L (23-300); Non-African American GFR(CKD) >90 (>60 ml/min/1.73 sqM); Potassium 4.2 mmol/L (3.5-5.1); Sodium 140 mmol/L (137-145); Total Bilirubin 0.3 mg/dL (0.2-1.3); Total Protein 6.9 g/dL (6.3-8.2)
[2022-03-07 17:41] LABS: Appearance,Urine Clear (Clear); Bilirubin,Urine Negative (Negative); Blood,Urine Moderate (Negative); Color,Urine Yellow; Glucose,Urine (UA) Negative (Negative); Ketones,Urine Negative (Negative); Leukocyte Esterase,Urine Moderate (Negative); Mucus,Urine Rare /hpf; Nitrite,Urine Negative (Negative); Protein,Urine Negative (Negative); RBC,Urine 12 /hpf (0-5); Specific Gravity,Urine 1.019 (1.001-1.035); Squamous Epithelial Cell,Urine 2 /hpf (0-4); Urobilinogen,Urine <2.0 mg/dL (<2.0); WBC,Urine 5 /hpf (0-5)
[2022-03-07 18:19] LABS: Erythrocyte Sedimentation Rate 8 mm/hr (0-20)
--- NOTE | 2022-03-07 18:36 | US ---
EXAMINATION TYPE: US kidneys/renal and bladder DATE OF EXAM: 03/07/2022 COMPARISON: 03/16/2018 CLINICAL HISTORY: Right flank pain/pelvic pain. Pain EXAM MEASUREMENTS: Right Kidney: 9.7 x 4.6 x 3.5 cm Left Kidney: 10.9 x 5.5 x 4.3 cm Right Kidney: No hydronephrosis or masses seen Left Kidney: No hydronephrosis or masses seen Bladder: wnl Bilateral Jets seen: Yes There is no evidence for hydronephrosis at this point in time. No nephrolithiasis is seen. No parrish s are identified. The urinary bladder is anechoic. Bilateral ureteral jets are seen. IMPRESSION: Normal exam. No evidence of renal mass or obstruction.
--- NOTE | 2022-03-07 18:38 | US ---
EXAMINATION TYPE: US transvaginal DATE OF EXAM: 03/07/2022 COMPARISON: 04/18/2020 CLINICAL HISTORY: Right flank pain/pelvic pain. Pain partial hysterectomy. TECHNIQUE: Transvaginal (TV). EXAM MEASUREMENTS: Uterus: Surgically absent cm Endometrial Stripe: Surgically absent cm Right Ovary: 2.7 x 1.6 x 1.7 cm Left Ovary: 2.8 x 1.9 x 1.6 cm 1. Uterus: Surgically absent 2. Endometrium: Surgically absent 3. Right Ovary: wnl 4. Left Ovary: wnl Spectral, color and waveform doppler imaging shows good arterial and venous flow within the ovaries ; there is no evidence for ovarian torsion. 5. Bilateral Adnexa: wnl 6. Posterior cul-de-sac: wnl IMPRESSION: Negative exam. No evidence of ovarian torsion.
[2022-03-07 19:38] VITALS: RESP 16
[2022-03-07] MEDS ORDERED: ACET/COD 300 MG/30 MG STARTER PACK 6 TAB BTL PO STA (19:56)
[2022-03-07] MEDS ORDERED: ONDANSETRON 4 MG ODT STARTER PACK 2 TAB BTL PO STA (19:56)
[2022-03-07] MEDS ORDERED: FLUCONAZOLE 150 MG TAB PO STA (19:58)
[2022-03-07 20:17] VITALS: BP 113/70; PULSE 86
[2022-03-08 13:10] LABS: HIV 2 AB Non-Reactive (Non-Reactive); HIV AB P24 Non-Reactive (Non-Reactive); HIV P24 AG Non-Reactive (Non-Reactive)
== END 2022-03-07 20:28 | disposition home or self-care (01) ==
LOC: EC 16:32
DX: R10.2 Pelvic and perineal pain (principal); R10.9 Unspecified abdominal pain; B37.31 Acute candidiasis of vulva and vagina; N72 Inflammatory disease of cervix uteri; Z88.8 Allergy status to other drugs, medicaments and biological substances
CPT/HCPCS: 36415; 80053; 85652; 83690; 85025; 81001; 81025; 87808; 87491; 87591; 86780; 87390; 76830; 76770; 99284; 96374; 96375 ×3; 96361; J2270; J2405; J0696; J1885; S0119; 93975

== ENCOUNTER 2022-05-26 07:44 | Emergency (ER) | payer OTHER ==
[2022-05-26] MEDS ORDERED: SODIUM CHLORIDE 0.9% 2,000 ML IV STA (08:24)
[2022-05-26] MEDS ORDERED: KETOROLAC 15 MG/ML 1 ML VIAL IVP STA (08:25)
[2022-05-26 09:01] LABS: Appearance,Urine Clear (Clear); Bilirubin,Urine Negative (Negative); Blood,Urine Negative (Negative); Color,Urine Dark Yellow; Glucose,Urine (UA) Negative (Negative); Ketones,Urine Negative (Negative); Leukocyte Esterase,Urine Negative (Negative); Nitrite,Urine Negative (Negative); PH, Urine 5.5 (5.0-8.0); Protein,Urine Negative (Negative); Specific Gravity,Urine 1.009 (1.001-1.035); Urobilinogen,Urine <2.0 mg/dL (<2.0)
[2022-05-26 09:09] LABS: Albumin 4.3 g/dL (3.5-5.0); Calcium 8.7 mg/dL (8.4-10.2); Total Bilirubin 0.8 mg/dL (0.2-1.3); Total Protein 7.1 g/dL (6.3-8.2)
[2022-05-26 09:10] LABS: Basophils # (A) 0.1 k/uL (0-0.2); Basophils % (A) 1 %; Eosinophils # (A) 0.2 k/uL (0-0.7); Eosinophils % (A) 2 %; HGB 12.9 gm/dL (11.4-16.0); Lymphocytes # (A) 1.7 k/uL (1.0-4.8); Lymphocytes % (A) 17 %; MCH 33.5 pg (25.0-35.0); MCV 93.2 fL (80.0-100.0); Mean Platelet Volume 8.9; Monocytes # (A) 0.5 k/uL (0-1.0); Monocytes % (A) 5 %; Neutrophils # (A) 7.5 k/uL (1.3-7.7); Neutrophils % (A) 74 %; Platelet Count 328 k/uL (150-450); RBC 3.86 m/uL (3.80-5.40); WBC 10.2 k/uL (3.8-10.6)
[2022-05-26 09:25] LABS: Potassium 4.2 mmol/L (3.5-5.1)
--- NOTE | 2022-05-26 10:29 | ED ---
Abdominal Pain HPI - General Chief Complaint: Abdominal Pain Stated Complaint: vomiting Time Seen by Provider: 05/26/22 08:05 Source: patient, RN notes reviewed Mode of arrival: ambulatory Limitations: no limitations - History of Present Illness Initial Comments: 37-year-old female presents emergency Department with chief complaint of left flank pain. Patient was seen at [facility] yesterday states that she was diagnosed with pyelonephritis. She has no dysuria. She states she had nausea and vomiting and pain patient has had chronic abdominal issues she states she was given medications to go home with but did not take any of them. Patient denies any reported fever she reports chills - Related Data Home Medications Medication Instructions Recorded Confirmed No Known Home Medications 05/26/22 05/26/22 Allergies Allergy/AdvReac Type Severity Reaction Status Date / Time metoclopramide [From Reglan] AdvReac Mild Rapid Verified 05/26/22 08:34 Heart Rate & Shortness of Breath prochlorperazine maleate AdvReac Rapid Verified 05/26/22 08:34 [From Compazine] Heart Rate & Shortness of Breath Review of Systems ROS Statement: Those systems with pertinent positive or pertinent negative responses have been documented in the HPI. ROS Other: All systems not noted in ROS Statement are negative. Past Medical History Past Medical History: No Reported History Additional Past Medical History / Comment(s): COLITIS, uti's, kidney infections, interstitial cystitis, kidney stones, RECTAL BLEEDING. covid 02/01 History of Any Multi-Drug Resistant Organisms: None Reported Past Surgical History: Appendectomy, Cholecystectomy, Hysterectomy, Tubal Ligation Additional Past Surgical History / Comment(s): novasure ENDOMETRIAL ABLATION, COLONOSCOPY Past Anesthesia/Blood Transfusion Reactions: No Reported Reaction Past Psychological History: No Psychological Hx Reported Smoking Status: Never smoker Past Alcohol Use History: None Reported Past Drug Use History: None Reported, Marijuana - Past Family History Father Family Medical History: No Reported History Mother Family Medical History: Cancer Additional Family Medical History / Comment(s): COLON CANCER General Exam Limitations: no limitations General appearance: alert, in no apparent distress Head exam: Present: atraumatic, normocephalic, normal inspection Eye exam: Present: normal appearance, PERRL, EOMI. Absent: scleral icterus, conjunctival injection, periorbital swelling ENT exam: Present: normal exam, normal oropharynx, mucous membranes moist Neck exam: Present: normal inspection, full ROM. Absent: tenderness, meningismus, lymphadenopathy Respiratory exam: Present: normal lung sounds bilaterally. Absent: respiratory distress, wheezes, rales, rhonchi, stridor Cardiovascular Exam: Present: regular rate, normal rhythm, normal heart sounds. Absent: systolic murmur, diastolic murmur, rubs, gallop, clicks GI/Abdominal exam: Present: soft, tenderness, normal bowel sounds. Absent: distended, guarding, rebound, rigid Back exam: Absent: CVA tenderness (L) Neurological exam: Present: alert Course Vital Signs 05/26/22 07:59 Temperature 98.7 F Pulse Rate 82 Respiratory 18 Rate Blood Pressure 117/77 O2 Sat by Pulse 98 Oximetry Medical Decision Making - Medical Decision Making Was pt. sent in by a medical professional or institution (, PA, FAMILY DAY CARER, urgent care, hospital, or long term...) When possible be specific @ -No Did you speak to anyone other than the patient for history (EMS, parent, family, police, friend...)? What history was obtained from this source @ -No Did you review nursing and triage notes (agree or disagree)? Why? @ -I reviewed and agree with nursing and triage notes Were old charts reviewed (outside hosp., previous admission, EMS record, old EKG, old radiological studies, urgent care reports/EKG's, long term records)? Report findings @ -Review labs from yesterday Differential Diagnosis (chest pain, altered mental status, abdominal pain women, abdominal pain men, vaginal bleeding, weakness, fever, dyspnea, syncope, headache, dizziness, GI bleed, back pain, seizure, CVA, palpatations, mental health, musculoskeletal)? @ -Differential Abdominal Pain Women: Appendicitis, Cholecystitis, diverticulosis, ischemic bowel, pancreatitis, hepatitis, UTI, gastroenteritis, AAA, incarcerated hernia, bowel obstruction, constipation, inflammatory bowel, hepatitis, peptic ulcer disease, splenic infarction, perforated viscus, vulvitis, ovarian torsion, PID, kidney stone, placenta abruption, this is not meant to be an all-inclusive liste EKG interpreted by me (3pts min.). @ -None X-rays interpreted by me (1pt min.). @ -None done CT interpreted by me (1pt min.). @ -None done U/S interpreted by me (1pt. min.). @ -None done What testing was considered but not performed or refused? (CT, X-rays, U/S, labs)? Why? @ -[Considered imaging such as ultrasound, CT the patient had recurrent abdom inal pain and has had several imaging studies What meds were considered but not given or refused? Why? @ -None Did you discuss the management of the patient with other professionals (professionals i.e. Dr., PA, FAMILY DAY CARER, lab, RT, psych nurse, social services counselor, weaving instructor, teacher, staff combat information center officer, skilled nursing case manager)? Give summary @ -No Was smoking cessation discussed for >3mins.? @ -No Was critical care preformed (if so, how long)? @ -No Were there social determinants of health that impacted care today? How? (Homelessness, low income, unemployed, alcoholism, drug addiction, transportation, low edu. Level, literacy, decrease access to med. care, [facility], rehab)? @ -No Was there de-escalation of care discussed even if they declined (Discuss DNR or withdrawal of care, Hospice)? DNR status @ -No What co-morbidities impacted this encounter? (DM, HTN, Smoking, COPD, CAD, Cancer, CVA, ARF, Chemo, Hep., AIDS, mental health diagnosis, sleep apnea, morbid obesity)? @ -Chronic abdominal pain Was patient admitted / discharged? Hospital course, mention meds given and route, prescriptions, significant lab abnormalities, going to OR and other pertinent info. @ -Discharge patient's laboratory studies unremarkable. Patient is well-known emergency department and this is at her current baseline vomiting has subsided after medications and hydration. She'll be discharged is no evidence of infection. Undiagnosed new problem with uncertain prognosis? @ -No Drug Therapy requiring intensive monitoring for toxicity (Heparin, Nitro, Insulin, Cardizem)? @ -No Were any procedures done? @ -No Diagnosis/symptom? @ -Chronic abdominal pain Acute, or Chronic, or Acute on Chronic? @ -Chronic Uncomplicated (without systemic symptoms) or Complicated (systemic symptoms)? @ -Uncomplicated Side effects of treatment? @ -No Exacerbation, Progression, or Severe Exacerbation? @ -No Poses a threat to life or bodily function? How? (Chest pain, [place], [place], pneumonia, PE, COPD, DKA, ARF, appy, cholecystitis, CVA, Diverticulitis, Homicidal, Suicidal, threat to staff... and all critical care pts) @ -No - Lab Data Result diagrams: 05/26/22 08:33 05/26/22 08:33 Lab Results 05/26/22 05/26/22 05/26/22 Range/Units 08:33 08:33 08:33 WBC 10.2 (3.8-10.6) k/uL RBC 3.86 (3.80-5.40) m/uL Hgb 12.9 (11.4-16.0) gm/dL Hct 36.0 (34.0-46.0) % MCV 93.2 (80.0-100.0) fL MCH 33.5 (25.0-35.0) pg MCHC 36.0 (31.0-37.0) g/dL RDW 12.0 (11.5-15.5) % Plt Count 328 (150-450) k/uL MPV 8.9 Neutrophils % 74 % Lymphocytes % 17 % Monocytes % 5 % Eosinophils % 2 % Basophils % 1 % Neutrophils # 7.5 (1.3-7.7) k/uL Lymphocytes # 1.7 (1.0-4.8) k/uL Monocytes # 0.5 (0-1.0) k/uL Eosinophils # 0.2 (0-0.7) k/uL Basophils # 0.1 (0-0.2) k/uL Sodium 138 (137-145) mmol/L Potassium 4.2 (3.5-5.1) mmol/L Chloride 108 H (98-107) mmol/L Carbon Dioxide 25 (22-30) mmol/L Anion Gap 5 mmol/L BUN 15 (7-17) mg/dL Creatinine 1.22 H (0.52-1.04) mg/dL Est GFR (CKD-EPI)AfAm 66 (>60 ml/min/1.73 sqM) Est GFR (CKD-EPI)NonAf 57 (>60 ml/min/1.73 sqM) Glucose 87 (74-99) mg/dL Plasma Lactic Acid Kevin (0.7-2.0) mmol/L Calcium 8.7 (8.4-10.2) mg/dL Total Bilirubin 0.8 (0.2-1.3) mg/dL AST 26 (14-36) U/L ALT 14 (4-34) U/L Alkaline Phosphatase 53 (38-126) U/L Total Protein 7.1 (6.3-8.2) g/dL Albumin 4.3 (3.5-5.0) g/dL Lipase 71 (23-300) U/L Urine Color Dark Yellow Urine Appearance Clear (Clear) Urine pH 5.5 (5.0-8.0) Ur Specific [place] 1.009 (1.001-1.035) Urine Protein Negative (Negative) Urine Glucose (UA) Negative (Negative) Urine Ketones Negative (Negative) Urine Blood Negative (Negative) Urine Nitrite Negative (Negative) Urine Bilirubin Negative (Negative) Urine Urobilinogen <2.0 (<2.0) mg/dL Ur Leukocyte Esterase Negative (Negative) 05/26/22 Range/Units 08:33 WBC (3.8-10.6) k/uL RBC (3.80-5.40) m/uL Hgb (11.4-16.0) gm/dL Hct (34.0-46.0) % MCV (80.0-100.0) fL MCH (25.0-35.0) pg MCHC (31.0-37.0) g/dL RDW (11.5-15.5) % Plt Count (150-450) k/uL MPV Neutrophils % % Lymphocytes % % Monocytes % % Eosinophils % % Basophils % % Neutrophils # (1.3-7.7) k/uL Lymphocytes # (1.0-4.8) k/uL Monocytes # (0-1.0) k/uL Eosinophils # (0-0.7) k/uL Basophils # (0-0.2) k/uL Sodium (137-145) mmol/L Potassium (3.5-5.1) mmol/L Chloride (98-107) mmol/L Carbon Dioxide (22-30) mmol/L Anion Gap mmol/L BUN (7-17) mg/dL Creatinine (0.52-1.04) mg/dL Est GFR (CKD-EPI)AfAm (>60 ml/min/1.73 sqM) Est GFR (CKD-EPI)NonAf (>60 ml/min/1.73 sqM) Glucose (74-99) mg/dL Plasma Lactic Acid Kevin 0.8 (0.7-2.0) mmol/L Calcium (8.4-10.2) mg/dL Total Bilirubin (0.2-1.3) mg/dL AST (14-36) U/L ALT (4-34) U/L Alkaline Phosphatase (38-126) U/L Total Protein (6.3-8.2) g/dL Albumin (3.5-5.0) g/dL Lipase (23-300) U/L Urine Color Urine Appearance (Clear) Urine pH (5.0-8.0) Ur Specific [place] (1.001-1.035) Urine Protein (Negative) Urine Glucose (UA) (Negative) Urine Ketones (Negative) Urine Blood (Negative) Urine Nitrite (Negative) Urine Bilirubin (Negative) Urine Urobilinogen (<2.0) mg/dL Ur Leukocyte Esterase (Negative) Disposition Clinical Impression: Nausea & vomiting Disposition: HOME SELF-CARE Condition: Stable Instructions (If sedation given, give patient instructions): Chronic Abdominal Pain (ED) Additional Instructions: Please return to the Emergency Department if symptoms worsen or any other concerns. Is patient prescribed a controlled substance at d/c from ED?: No Referrals: None,Stated [Primary Care Provider] - 1-2 days Time of Disposition: 10:29
[2022-05-26 10:57] VITALS: BP 115/78; PULSE 80; RESP 16; TEMP 98.1
== END 2022-05-26 10:57 | disposition home or self-care (01) ==
LOC: EC 07:44
DX: R11.2 Nausea with vomiting, unspecified (principal); F12.90 Cannabis use, unspecified, uncomplicated; Z88.8 Allergy status to other drugs, medicaments and biological substances
CPT/HCPCS: 36415; 80053; 83605; 83690; 85025; 81003; 99284; 96374; 96375; 96361 ×2; J1885; J1790

== ENCOUNTER 2022-08-09 03:00 | Emergency (ER) | payer OTHER ==
[2022-08-09 03:07] VITALS: TEMP 98.8
[2022-08-09] MEDS ORDERED: KETOROLAC 15 MG/ML 1 ML VIAL IVP STA (03:45)
[2022-08-09] MEDS ORDERED: PANTOPRAZOLE 40 MG/10 ML VIAL IVP STA (03:45)
[2022-08-09] MEDS ORDERED: SODIUM CHLORIDE 0.9% 1,000 ML IV STA (03:45)
[2022-08-09] MEDS ORDERED: ONDANSETRON 4 MG/2 ML VIAL IVP STA (03:45)
[2022-08-09] MEDS ORDERED: MORPHINE SULFATE 4 MG/ML SYRINGE IVP STA (03:46)
[2022-08-09] MEDS ORDERED: diphenhydrAMINE 50 MG/ML 1 ML VIAL IVP STA (04:47)
[2022-08-09 04:55] LABS: Basophils % (A) 0 %; Eosinophils # (A) 0.1 k/uL (0-0.7); Eosinophils % (A) 1 %; HCT 40.1 % (34.0-46.0); HGB 13.5 gm/dL (11.4-16.0); Lymphocytes # (A) 2.1 k/uL (1.0-4.8); Lymphocytes % (A) 25 %; MCH 31.9 pg (25.0-35.0); MCHC 33.6 g/dL (31.0-37.0); Mean Platelet Volume 7.2; Monocytes # (A) 0.4 k/uL (0-1.0); Monocytes % (A) 5 %; Neutrophils # (A) 5.5 k/uL (1.3-7.7); Neutrophils % (A) 67 %; Platelet Count 334 k/uL (150-450); RBC 4.22 m/uL (3.80-5.40); RDW 11.7 % (11.5-15.5); WBC 8.2 k/uL (3.8-10.6)
[2022-08-09 05:03] LABS: ALT 14 U/L (4-34); AST 18 U/L (14-36); African American GFR (CKD) >90 (>60 ml/min/1.73 sqM); Albumin 4.8 g/dL (3.5-5.0); Alkaline Phosphatase 61 U/L (38-126); Amylase 75 U/L (30-110); Anion Gap 11 mmol/L; Blood Urea Nitrogen 9 mg/dL (7-17); Calcium 9.8 mg/dL (8.4-10.2); Carbon Dioxide 26 mmol/L (22-30); Chloride 102 mmol/L (98-107); Glucose 82 mg/dL (74-99); Lipase 62 U/L (23-300); Non-African American GFR(CKD) >90 (>60 ml/min/1.73 sqM); Potassium 4.3 mmol/L (3.5-5.1); Sodium 139 mmol/L (137-145); Total Bilirubin 0.7 mg/dL (0.2-1.3); Total Protein 7.9 g/dL (6.3-8.2)
[2022-08-09 05:10] LABS: Partial Thromboplastin Time 27.2 sec (22.0-30.0); Prothrombin Time 10.8 sec (9.0-12.0)
[2022-08-09 05:14] LABS: Appearance,Urine Clear (Clear); Bilirubin,Urine Negative (Negative); Blood,Urine Moderate (Negative); Color,Urine Yellow; Glucose,Urine (UA) Negative (Negative); Ketones,Urine 2+ (Negative); Leukocyte Esterase,Urine Small (Negative); Mucus,Urine Many /hpf; Nitrite,Urine Negative (Negative); PH, Urine 5.5 (5.0-8.0); Protein,Urine Trace (Negative); RBC,Urine 9 /hpf (0-5); Specific Gravity,Urine 1.026 (1.001-1.035); Squamous Epithelial Cell,Urine 2 /hpf (0-4); Urobilinogen,Urine <2.0 mg/dL (<2.0); WBC,Urine 10 /hpf (0-5)
--- NOTE | 2022-08-09 05:25 | ED ---
General Adult HPI - General Chief complaint: Abdominal Pain Stated complaint: Vomiting, Pain Time Seen by Provider: 08/09/22 03:34 Source: patient, RN notes reviewed, old records reviewed Mode of arrival: ambulatory Limitations: no limitations - History of Present Illness Initial comments: Patient is a 37-year-old female presents emergency Department unable to abdominal pain. She has a history of cholecystectomy, appendectomy, hysterectomy, recurrent symptomatic kidney stones. Presents for concern for kidney stones. States the pain started yesterday and is also having intractable nausea and vomiting. Has some dysuria with it. No change in urine color. Denies any chest pain or shortness of breath. Denies any diarrhea. Endorses nonbilious nonbloody emesis. States this feels like her typical kidney stone. Presents for further evaluation at this time. Denies any vaginal discharge or bleeding. - Related Data Previous Rx's Medication Instructions Recorded Cephalexin [Keflex] 500 mg PO Q12HR 5 Days #10 cap 08/09/22 Ondansetron Odt [Zofran Odt] 4 mg PO Q8HR PRN 2 Days #6 tab 08/09/22 Allergies Allergy/AdvReac Type Severity Reaction Status Date / Time metoclopramide [From Reglan] AdvReac Mild Rapid Verified 08/09/22 03:05 Heart Rate & Shortness of Breath prochlorperazine maleate AdvReac Rapid Verified 08/09/22 03:05 [From Compazine] Heart Rate & Shortness of Breath Review of Systems ROS Statement: Those systems with pertinent positive or pertinent negative responses have been documented in the HPI. Review of Systems: CONST: Denies fever EYES: Denies blurry vision ENT: Denies nasal congestion C/V: Denies Chest pain RESP: Denies shortness of breath GI: Endorses abdominal pain : Denies dysuria SKIN: Denies rash. MSK: Denies joint pain. NEURO: Denies headache ROS Other: All systems not noted in ROS Statement are negative. Past Medical History Past Medical History: No Reported History Additional Past Medical History / Comment(s): COLITIS, uti's, kidney infections, interstitial cystitis, kidney stones, RECTAL BLEEDING. covid 02/01 History of Any Multi-Drug Resistant Organisms: None Reported Past Surgical History: Appendectomy, Cholecystectomy, Hysterectomy, Tubal Ligation Additional Past Surgical History / Comment(s): novasure ENDOMETRIAL ABLATION, C OLONOSCOPY Past Anesthesia/Blood Transfusion Reactions: No Reported Reaction Past Psychological History: No Psychological Hx Reported Smoking Status: Never smoker Past Alcohol Use History: None Reported Past Drug Use History: None Reported - Past Family History Father Family Medical History: No Reported History Mother Family Medical History: Cancer Additional Family Medical History / Comment(s): COLON CANCER General Exam - General Exam Comments Initial Comments: General: Appears in mild distress secondary to abdominal discomfort and nausea HEAD: Normal with no signs of head trauma. EYES: PERRLA, EOMI, conjunctiva normal, no discharge. ENT: Hearing grossly intact, normal oropharynx. RESPIRATORY: Clear breath sounds bilaterally. No wheezes, rales, or rhonchi. C/V: Regular rate and rhythm. S1 and S2 auscultated, peripheral pulses 2+ and intact throughout ABD: Abdomen is soft, nondistended. Tender to palpation in the right flank and mild tenderness in the right CVA. No guarding. No peritoneal signs. No rebound tenderness. EXT: Normal range of motion, no obvious deformity SKIN: No rashes or lesions observed on exposed skin. NEURO: Alert and oriented 4. Limitations: no limitations Course Vital Signs 08/09/22 03:05 Temperature 98.8 F Pulse Rate 101 H Respiratory 16 Rate Blood Pressure 149/85 O2 Sat by Pulse 99 Oximetry Medical Decision Making - Medical Decision Making Was pt. sent in by a medical professional or institution (, PA, ELECTRICIAN WIRING, urgent care, hospital, or intermediate...) When possible be specific @ -No Did you speak to anyone other than the patient for history (EMS, parent, family, police, friend...)? What history was obtained from this source @ -No Did you review nursing and triage notes (agree or disagree)? Why? @ -I reviewed and agree with nursing and triage notes Were old charts reviewed (outside hosp., previous admission, EMS record, old EKG, old radiological studies, urgent care reports/EKG's, intermediate records)? Report findings @ -No old charts were reviewed Differential Diagnosis (chest pain, altered mental status, abdominal pain women, abdominal pain men, vaginal bleeding, weakness, fever, dyspnea, syncope, headache, dizziness, GI bleed, back pain, seizure, CVA, palpatations, mental health, musculoskeletal)? @ -Differential Abdominal Pain Women: Appendicitis, Cholecystitis, diverticulosis, ischemic bowel, pancreatitis, hepatitis, UTI, gastroenteritis, AAA, incarcerated hernia, bowel obstruction, constipation, inflammatory bowel, hepatitis, peptic ulcer disease, splenic i nfarction, perforated viscus, vulvitis, ovarian torsion, PID, kidney stone, placenta abruption, this is not meant to be an all-inclusive list EKG interpreted by me (3pts min.). @ -None done X-rays interpreted by me (1pt min.). @ -None done CT interpreted by me (1pt min.). @ -CT reveals no evidence of acute hydronephrosis or ureteral lithiasis. Patient does have nonspecific inflammation of the colon, which makes sense with the patient's recent diarrhea, nausea, vomiting. U/S interpreted by me (1pt. min.). @ -None done What testing was considered but not performed or refused? (CT, X-rays, U/S, labs)? Why? @ -None What meds were considered but not given or refused? Why? @ -None Did you discuss the management of the patient with other professionals (professionals i.e. , PA, ELECTRICIAN WIRING, lab, RT, psych nurse, social media marketer, mess attendant crew, teacher, financial compliance officer, family independence case manager)? Give summary @ -No Was smoking cessation discussed for >3mins.? @ -No Was critical care preformed (if so, how long)? @ -No Were there social determinants of health that impacted care today? How? (Homelessness, low income, unemployed, alcoholism, drug addiction, tra nsportation, low edu. Level, literacy, decrease access to med. care, halfway, rehab)? @ -No Was there de-escalation of care discussed even if they declined (Discuss DNR or withdrawal of care, Hospice)? DNR status @ -No What co-morbidities impacted this encounter? (DM, HTN, Smoking, COPD, CAD, Cancer, CVA, ARF, Chemo, Hep., AIDS, mental health diagnosis, sleep apnea, morbid obesity)? @ -None Was patient admitted / discharged? Hospital course, mention meds given and route, prescriptions, significant lab abnormalities, going to OR and other pertinent info. @ -Based on the patient's presentation and physical exam, I am concerned for acute intra-abdominal process for current symptoms. The differential is kidney stones. We will obtain abdominal laboratory studies as well as a CT abdomen and pelvis. Patient was symptomatically treated with IV fluids, Zofran, Protonix, Benadryl, morphine, Toradol. She was in agreement this plan. Vital signs within acceptable limits. Patient's imaging negative for hydronephrosis or signs of significant ureteroli thiasis. Labs are remarkable for normal leukocytosis. Abdomen is within normal limits. Urinalysis reveals a moderate amount of blood, but no bacteria. Minimal white blood cells present. I discussed with the patient that the results for urine likely is indicative of a recently passed kidney stone but cannot rule out UTI at this time. She has no evidence of stone on imaging we will treat her for UTI, considering she has been symptomatic with dysuria. She was in agreement this plan. She'll be started on Keflex. Started after Tylenol and Zofran will be provided. I will also provide him with a prescription for additional Zofran. She'll follow up with her urologist Dr. Evans. Patient was in agreement this plan. Patient is feeling improved at this time. I will provide the patient with a prescription for Zofran, Keflex. I instructed the patient to follow up with their PCP in the next 1-3 days. I explained that the patient should return to the emergency department if they experience any worsening symptoms. Strict return precautions were discussed with the patient. The patient expressed understanding of these instructions. I answered all questions that the patient had. The patient was discharged home in good condition with their prescriptions and follow up information. Undiagnosed new problem with uncertain prognosis? @ -No Drug Therapy requiring intensive monitoring for toxicity (Heparin, Nitro, Insul in, Cardizem)? @ -No Were any procedures done? @ -No Diagnosis/symptom? @ -UTI, abdominal pain of unknown etiology, nausea and vomiting Acute, or Chronic, or Acute on Chronic? @ -Acute Uncomplicated (without systemic symptoms) or Complicated (systemic symptoms)? @ -Complicated Side effects of treatment? @ -none Exacerbation, Progression, or Severe Exacerbation] @ -no Poses a threat to life or bodily function? @ -no - Lab Data Result diagrams: 08/09/22 03:53 08/09/22 03:53 Lab Results 08/09/22 08/09/22 08/09/22 Range/Units 03:53 03:53 03:53 WBC 8.2 (3.8-10.6) k/uL RBC 4.22 (3.80-5.40) m/uL Hgb 13.5 (11.4-16.0) gm/dL Hct 40.1 (34.0-46.0) % MCV 95.0 (80.0-100.0) fL MCH 31.9 (25.0-35.0) pg MCHC 33.6 (31.0-37.0) g/dL RDW 11.7 (11.5-15.5) % Plt Count 334 (150-450) k/uL MPV 7.2 Neutrophils % 67 % Lymphocytes % 25 % Monocytes % 5 % Eosinophils % 1 % Basophils % 0 % Neutrophils # 5.5 (1.3-7.7) k/uL Lymphocytes # 2.1 (1.0-4.8) k/uL Monocytes # 0.4 (0-1.0) k/uL Eosinophils # 0.1 (0-0.7) k/uL Basophils # 0.0 (0-0.2) k/uL PT 10.8 (9.0-12.0) sec INR 1.0 (<1.2) APTT 27.2 (22.0-30.0) sec Sodium (137-145) mmol/L Potassium (3.5-5.1) mmol/L Chloride (98-107) mmol/L Carbon Dioxide (22-30) mmol/L Anion Gap mmol/L BUN (7-17) mg/dL Creatinine (0.52-1.04) mg/dL Est GFR (CKD-EPI)AfAm (>60 ml/min/1.73 sqM) Est GFR (CKD-EPI)NonAf (>60 ml/min/1.73 sqM) Glucose (74-99) mg/dL Calcium (8.4-10.2) mg/dL Total Bilirubin (0.2-1.3) mg/dL AST (14-36) U/L ALT (4-34) U/L Alkaline Phosphatase (38-126) U/L Total Protein (6.3-8.2) g/dL Albumin (3.5-5.0) g/dL Amylase (30-110) U/L Lipase (23-300) U/L Urine Color Yellow Urine Appearance Clear (Clear) Urine pH 5.5 (5.0-8.0) Ur Specific [place] 1.026 (1.001-1.035) Urine Protein Trace H (Negative) Urine Glucose (UA) Negative (Negative) Urine Ketones 2+ H (Negative) Urine Blood Moderate H (Negative) Urine Nitrite Negative (Negative) Urine Bilirubin Negative (Negative) Urine Urobilinogen <2.0 (<2.0) mg/dL Ur Leukocyte Esterase Small H (Negative) Urine RBC 9 H (0-5) /hpf Urine WBC 10 H (0-5) /hpf Ur Squamous Epith Cells 2 (0-4) /hpf Urine Mucus Many H (None) /hpf 08/09/22 Range/Units 03:53 WBC (3.8-10.6) k/uL RBC (3.80-5.40) m/uL Hgb (11.4-16.0) gm/dL Hct (34.0-46.0) % MCV (80.0-100.0) fL MCH (25.0-35.0) pg MCHC (31.0-37.0) g/dL RDW (11.5-15.5) % Plt Count (150-450) k/uL MPV Neutrophils % % Lymphocytes % % Monocytes % % Eosinophils % % Basophils % % Neutrophils # (1.3-7.7) k/uL Lymphocytes # (1.0-4.8) k/uL Monocytes # (0-1.0) k/uL Eosinophils # (0-0.7) k/uL Basophils # (0-0.2) k/uL PT (9.0-12.0) sec INR (<1.2) APTT (22.0-30.0) sec Sodium 139 (137-145) mmol/L Potassium 4.3 (3.5-5.1) mmol/L Chloride 102 (98-107) mmol/L Carbon Dioxide 26 (22-30) mmol/L Anion Gap 11 mmol/L BUN 9 (7-17) mg/dL Creatinine 0.68 (0.52-1.04) mg/dL Est GFR (CKD-EPI)AfAm >90 (>60 ml/min/1.73 sqM) Est GFR (CKD-EPI)NonAf >90 (>60 ml/min/1.73 sqM) Glucose 82 (74-99) mg/dL Calcium 9.8 (8.4-10.2) mg/dL Total Bilirubin 0.7 (0.2-1.3) mg/dL AST 18 (14-36) U/L ALT 14 (4-34) U/L Alkaline Phosphatase 61 (38-126) U/L Total Protein 7.9 (6.3-8.2) g/dL Albumin 4.8 (3.5-5.0) g/dL Amylase 75 (30-110) U/L Lipase 62 (23-300) U/L Urine Color Urine Appearance (Clear) Urine pH (5.0-8.0) Ur Specific [place] (1.001-1.035) Urine Protein (Negative) Urine Glucose (UA) (Negative) Urine Ketones (Negative) Urine Blood (Negative) Urine Nitrite (Negative) Urine Bilirubin (Negative) Urine Urobilinogen (<2.0) mg/dL Ur Leukocyte Esterase (Negative) Urine RBC (0-5) /hpf Urine WBC (0-5) /hpf Ur Squamous Epith Cells (0-4) /hpf Urine Mucus (None) /hpf Disposition Clinical Impression: Abdominal pain, Nausea and vomiting, UTI (urinary tract infection) Disposition: HOME SELF-CARE Condition: Fair Instructions (If sedation given, give patient instructions): Abdominal Pain (ED) Prescriptions: Cephalexin [Keflex] 500 mg PO Q12HR 5 Days #10 cap Ondansetron Odt [Zofran Odt] 4 mg PO Q8HR PRN 2 Days #6 tab PRN Reason: Nausea Is patient prescribed a controlled substance at d/c from ED?: No Referrals: None,Stated [Primary Care Provider] - 1-2 days Kumar Evans MD [STAFF PHYSICIAN] - 1-2 days Time of Disposition: 05:44
--- NOTE | 2022-08-09 05:42 | CT ---
EXAM: CT Abdomen and Pelvis Without Intravenous Contrast CLINICAL HISTORY: ITS.REASON CT Reason: rt flank pain. hx kidney stones TECHNIQUE: Axial computed tomography images of the abdomen and pelvis without intravenous contrast. CTDI is 8.4 mGy and DLP is 490.4 mGy-cm. This CT exam was performed using one or more of the following dose reduction techniques: automated exposure control, adjustment of the mA and/or kV according to patient size, and/or use of iterative reconstruction technique. COMPARISON: CT dated 04/22/2022 FINDINGS: Lung bases: Unremarkable. No mass. No consolidation. ABDOMEN: Liver: Mild enlargement of the liver. Findings suggestive of hepatic steatosis. No evidence of hepatic mass. Gallbladder and bile ducts: Status post cholecystectomy. No ductal dilation. Pancreas: Unremarkable. No ductal dilation. Spleen: Unremarkable. No splenomegaly. Adrenals: Unremarkable. No mass. Kidneys and ureters: Unremarkable. No hydronephrosis. No evidence of nephro or urolithiasis. Stomach and bowel: Mild rectal wall thickening. Fatty infiltration is seen within the wall of the rectum, cecum and the mid ascending colon suggesting chronic inflammatory bowel disease.. No acute inflammatory process is seen within the colon. Fatty infiltration of the terminal ileal wall suggesting chronic inflammatory bowel disease. No acute inflammatory process is seen within the small bowel. No obstruction. PELVIS: Appendix: No findings to suggest acute appendicitis. Bladder: Unremarkable. No stones. Reproductive: Unremarkable as visualized. ABDOMEN and PELVIS: Intraperitoneal space: Unremarkable. No free air. No significant fluid collection. Bones/joints: No acute fracture. No dislocation. Soft tissues: Unremarkable. Vasculature: Unremarkable. No abdominal aortic aneurysm. Lymph nodes: Unremarkable. No enlarged lymph nodes. IMPRESSION: No acute findings. No evidence of nephrolithiasis or urolithiasis.
[2022-08-09] MEDS ORDERED: ACET/COD 300 MG/30 MG STARTER PACK 6 TAB BTL PO STA (05:49)
[2022-08-09] MEDS ORDERED: ONDANSETRON 4 MG ODT STARTER PACK 2 TAB BTL PO STA (05:49)
[2022-08-09] MEDS ORDERED: CEPHALEXIN 500 MG CAP PO STA (05:57)
[2022-08-09 06:11] VITALS: BP 117/70; PULSE 72; RESP 18
== END 2022-08-09 06:15 | disposition home or self-care (01) ==
LOC: EC 03:00
DX: R11.2 Nausea with vomiting, unspecified (principal); N39.0 Urinary tract infection, site not specified; R10.9 Unspecified abdominal pain; Z88.8 Allergy status to other drugs, medicaments and biological substances
CPT/HCPCS: 36415; 80053; 82150; 83690; 85025; 85610; 85730; 81001; 74176; 99284; 96374; 96375 ×4; 96361; J2270; J1200; J2405; J1885; S0119; C9113

== ENCOUNTER 2023-01-17 10:57 | Emergency (ER) | payer OTHER ==
[2023-01-17] MEDS ORDERED: SODIUM CHLORIDE 0.9% 1,000 ML IV STA (11:08)
[2023-01-17] MEDS ORDERED: ONDANSETRON 4 MG/2 ML VIAL IVP STA ×2 (11:08→14:00)
[2023-01-17] MEDS ORDERED: KETOROLAC 15 MG/ML 1 ML VIAL IVP STA ×2 (11:08→14:00)
[2023-01-17 11:47] LABS: Basophils % (A) 0 %; Eosinophils # (A) 0.1 k/uL (0-0.7); Eosinophils % (A) 1 %; HCT 41.9 % (34.0-46.0); HGB 14.1 gm/dL (11.4-16.0); Lymphocytes # (A) 2.3 k/uL (1.0-4.8); Lymphocytes % (A) 21 %; MCH 32.4 pg (25.0-35.0); MCHC 33.6 g/dL (31.0-37.0); MCV 96.4 fL (80.0-100.0); Mean Platelet Volume 7.2; Monocytes # (A) 0.4 k/uL (0-1.0); Monocytes % (A) 4 %; Neutrophils % (A) 72 %; Platelet Count 360 k/uL (150-450); RBC 4.34 m/uL (3.80-5.40); RDW 12.1 % (11.5-15.5); WBC 11.1 k/uL (3.8-10.6)
--- NOTE | 2023-01-17 11:49 | ED ---
Abdominal Pain HPI - General Chief Complaint: Abdominal Pain Stated Complaint: Vomiting Time Seen by Provider: 01/17/23 11:06 Source: patient, RN notes reviewed Mode of arrival: ambulatory Limitations: no limitations - History of Present Illness Initial Comments: This is a 37-year-old female who presents to the emergency department for abdominal pain, nausea, and vomiting. States that over the last 2 days she has had pain in the lower abdomen as well as the left mid back. States that this feels like prior kidney stones. Also reports burning with urination. She also has ongoing nausea and vomiting and has been unable to keep anything down. Logan es any fevers or chills. She is supposed to take [place] 10 mg as needed for pain relief. However, due to the shortage, she has only been able to get 5 mg and the pharmacy was only able to give her a partial prescription for this, as they were also out, and she has been waiting on this for several days. MD Complaint: abdominal pain, flank pain Onset/Timin -: days(s) Location: LLQ, suprapubic, L flank - Related Data Previous Rx's Medication Instructions Recorded Cephalexin [Keflex] 500 mg PO Q12HR 5 Days #10 cap 08/09/22 Ondansetron Odt [Zofran Odt] 4 mg PO Q8HR PRN 2 Days #6 tab 08/09/22 Ketorolac [Toradol] 10 mg PO Q6HR PRN #15 tab 01/17/23 Ondansetron Odt [Zofran Odt] 4 mg PO Q8HR PRN #20 tab 01/17/23 Allergies Allergy/AdvReac Type Severity Reaction Status Date / Time metoclopramide [From Reglan] AdvReac Mild Rapid Verified 01/17/23 11:04 Heart Rate & Shortness of Breath prochlorperazine maleate AdvReac Rapid Verified 01/17/23 11:04 [From Compazine] Heart Rate & Shortness of Breath Review of Systems ROS Statement: Those systems with pertinent positive or pertinent negative responses have been documented in the HPI. ROS Other: All systems not noted in ROS Statement are negative. Past Medical History Past Medical History: No Reported History Additional Past Medical History / Comment(s): COLITIS, uti's, kidney infections, interstitial cystitis, kidney stones, RECTAL BLEEDING, cronhs,. covid 02/01 History of Any Multi-Drug Resistant Organisms: None Reported Past Surgical History: Appendectomy, Cholecystectomy, Hysterectomy, Tubal Ligation Additional Past Surgical History / Comment(s): novasure ENDOMETRIAL ABLATION, COLONOSCOPY Past Anesthesia/Blood Transfusion Reactions: No Reported Reaction Past Psychological History: No Psychological Hx Reported Smoking Status: Never smoker Past Alcohol Use History: None Reported Past Drug Use History: None Reported - Past Family History Father Family Medical History: No Reported History Mother Family Medical History: Cancer Additional Family Medical History / Comment(s): COLON CANCER General Exam Limitations: no limitations General appearance: alert, in no apparent distress Head exam: Present: atraumatic, normocephalic, normal inspection Respiratory exam: Present: normal lung sounds bilaterally. Absent: respiratory distress, wheezes, rales, rhonchi, stridor Cardiovascular Exam: Present: regular rate, normal rhythm, normal heart sounds. Absent: systolic murmur, diastolic murmur, rubs, gallop, clicks GI/Abdominal exam: Present: soft, tenderness (LLQ, suprapubic), normal bowel sounds. Absent: distended Back exam: Present: CVA tenderness (L). Absent: CVA tenderness (R) Neurological exam: Present: alert, oriented X3, CN II-XII intact Psychiatric exam: Present: normal affect, normal mood Skin exam: Present: warm, dry, intact, normal color. Absent: rash Course Vital Signs 01/17/23 01/17/23 11:02 14:53 Temperature 98.6 F 97.9 F Pulse Rate 104 H 88 Respiratory 20 18 Rate Blood Pressure 130/83 102/61 O2 Sat by Pulse 100 96 Oximetry Medical Decision Making - Medical Decision Making This is a 37-year-old female who presents to the emergency department for abdominal pain, nausea, and vomiting. Was pt. sent in by a medical professional or institution? @ -No Did you speak to anyone other than the patient for history? @ -No Did you review nursing and triage notes? @ -Yes, and I agree, it is accurate with regards to the patient's symptoms. Were old charts reviewed? @ -No Differential Diagnosis? @ -Differential Abdominal Pain Women: Appendicitis, Cholecystitis, diverticulosis, ischemic bowel, pancreatitis, hepatitis, UTI, gastroenteritis, AAA, incarcerated hernia, bowel obstruction, constipation, inflammatory bowel, hepatitis, peptic ulcer disease, splenic infarction, perforated viscus, vulvitis, ovarian torsion, PID, kidney stone, placenta abruption, this is not meant to be an all-inclusive list EKG interpreted by me (3pts min.)? @ -Not obtained X-rays interpreted by me (1pt min.)? @ -Not obtained CT interpreted by me (1pt min.)? @ -Computed tomography scan of the abdomen and pelvis obtained. My interpretation identifies no evidence of a ureteral calculus. U/S interpreted by me (1pt. min.)? @ -Not interpreted by me What testing was considered but not performed? (CT, X-rays, U/S, labs)? Why? @ -None What meds were considered but not given? Why? @ -None Did you discuss the management of the patient with other professionals? @ -No Did you reconcile home meds? @ -No Was smoking cessation discussed for >3mins.? @ -No Was critical care preformed (if so, how long)? @ -No Were there social determinants of health that impacted care today? How? (Homelessness, low income, unemployed, alcoholism, drug addiction, transportation, low edu. Level, literacy, decrease access to med. care, [facility], rehab)? @ -No Was there de-escalation of care discussed even if they declined? (Discuss DNR or withdrawal of care, Hospice)? @ -No What co-morbidities impacted this encounter? (DM, HTN, Smoking, COPD, CAD, Cancer, CVA, Hep., AIDS, mental health diagnosis, sleep apnea, morbid obesity)? @ -Kidney stones Was patient admitted / discharged? @ -Discharged. Lab work obtained revealing mild leukocytosis and no other actionable findings. Urinalysis has a small amount of blood and was also consistent with contamination, without evidence of infection. Urine was sent for culture. Computed tomography scan of the abdomen and pelvis obtained revealing enlargement of the left ovary and no evidence of a ureteral calculus. We subsequently obtained a pelvic ultrasound. This revealed a cystic like structure on the left ovary without evidence of torsion or other acute process. Her symptoms were well controlled in the emergency department. Rx for Toradol and Zofran provided with dosing instructions reviewed and she was discharged home in stable condition with instructions to follow up with her primary care provider. Undiagnosed new problem with uncertain prognosis? @ -None Drug Therapy requiring intensive monitoring for toxicity (Heparin, Nitro, Insulin, Cardizem)? @ -None Were any procedures done? @ -None Diagnosis/symptom? @ -Left ovarian cyst, nausea and vomiting Acute, or Chronic, or Acute on Chronic? @ -Acute Uncomplicated (without systemic symptoms) or Complicated (systemic symptoms)? @ -Uncomplicated Side effects of treatment? @ -None Exacerbation, Progression, or Severe Exacerbation] @ -Not applicable Poses a threat to life or bodily function? @ -No Return precautions reviewed in depth, the patient is instructed to return to the emergency department with any new, worsening, or concerning symptoms. Patient verbalized understanding. This case was discussed in detail with the attending ED physician, Dr. Rolon. Presentation, findings, and treatment plan discussed in detail as well. - Lab Data Result diagrams: 01/17/23 11:08 01/17/23 11:08 Lab Results 01/17/23 01/17/23 01/17/23 Range/Units 11:08 11:08 11:08 WBC 11.1 H (3.8-10.6) k/uL RBC 4.34 (3.80-5.40) m/uL Hgb 14.1 (11.4-16.0) gm/dL Hct 41.9 (34.0-46.0) % MCV 96.4 (80.0-100.0) fL MCH 32.4 (25.0-35.0) pg MCHC 33.6 (31.0-37.0) g/dL RDW 12.1 (11.5-15.5) % Plt Count 360 (150-450) k/uL MPV 7.2 Neutrophils % 72 % Lymphocytes % 21 % Monocytes % 4 % Eosinophils % 1 % Basophils % 0 % Neutrophils # 8.0 H (1.3-7.7) k/uL Lymphocytes # 2.3 (1.0-4.8) k/uL Monocytes # 0.4 (0-1.0) k/uL Eosinophils # 0.1 (0-0.7) k/uL Basophils # 0.0 (0-0.2) k/uL Sodium 138 (137-145) mmol/L Potassium 3.7 (3.5-5.1) mmol/L Chloride 103 (98-107) mmol/L Carbon Dioxide 23 (22-30) mmol/L Anion Gap 12 mmol/L BUN 10 (7-17) mg/dL Creatinine 0.64 (0.52-1.04) mg/dL Est GFR (CKD-EPI)AfAm >90 (>60 ml/min/1.73 sqM) Est GFR (CKD-EPI)NonAf >90 (>60 ml/min/1.73 sqM) Glucose 93 (74-99) mg/dL Plasma Lactic Acid Kevin (0.7-2.0) mmol/L Calcium 9.8 (8.4-10.2) mg/dL Total Bilirubin 0.4 (0.2-1.3) mg/dL AST 23 (14-36) U/L ALT 22 (4-34) U/L Alkaline Phosphatase 69 (38-126) U/L Total Protein 7.9 (6.3-8.2) g/dL Albumin 4.8 (3.5-5.0) g/dL Amylase 98 (30-110) U/L Lipase 68 (23-300) U/L Urine Color Yellow Urine Appearance Cloudy H (Clear) Urine pH 6.5 (5.0-8.0) Ur Specific [place] 1.024 (1.001-1.035) Urine Protein Negative (Negative) Urine Glucose (UA) Negative (Negative) Urine Ketones Negative (Negative) Urine Blood Small H (Negative) Urine Nitrite Negative (Negative) Urine Bilirubin Negative (Negative) Urine Urobilinogen <2.0 (<2.0) mg/dL Ur Leukocyte Esterase Negative (Negative) Urine RBC 9 H (0-5) /hpf Urine WBC 3 (0-5) /hpf Ur Squamous Epith Cells 15 H (0-4) /hpf Urine Mucus Many H (None) /hpf 01/17/23 Range/Units 11:08 WBC (3.8-10.6) k/uL RBC (3.80-5.40) m/uL Hgb (11.4-16.0) gm/dL Hct (34.0-46.0) % MCV (80.0-100.0) fL MCH (25.0-35.0) pg MCHC (31.0-37.0) g/dL RDW (11.5-15.5) % Plt Count (150-450) k/uL MPV Neutrophils % % Lymphocytes % % Monocytes % % Eosinophils % % Basophils % % Neutrophils # (1.3-7.7) k/uL Lymphocytes # (1.0-4.8) k/uL Monocytes # (0-1.0) k/uL Eosinophils # (0-0.7) k/uL Basophils # (0-0.2) k/uL Sodium (137-145) mmol/L Potassium (3.5-5.1) mmol/L Chloride (98-107) mmol/L Carbon Dioxide (22-30) mmol/L Anion Gap mmol/L BUN (7-17) mg/dL Creatinine (0.52-1.04) mg/dL Est GFR (CKD-EPI)AfAm (>60 ml/min/1.73 sqM) Est GFR (CKD-EPI)NonAf (>60 ml/min/1.73 sqM) Glucose (74-99) mg/dL Plasma Lactic Acid Kevin 1.1 (0.7-2.0) mmol/L Calcium (8.4-10.2) mg/dL Total Bilirubin (0.2-1.3) mg/dL AST (14-36) U/L ALT (4-34) U/L Alkaline Phosphatase (38-126) U/L Total Protein (6.3-8.2) g/dL Albumin (3.5-5.0) g/dL Amylase (30-110) U/L Lipase (23-300) U/L Urine Color Urine Appearance (Clear) Urine pH (5.0-8.0) Ur Specific [place] (1.001-1.035) Urine Protein (Negative) Urine Glucose (UA) (Negative) Urine Ketones (Negative) Urine Blood (Negative) Urine Nitrite (Negative) Urine Bilirubin (Negative) Urine Urobilinogen (<2.0) mg/dL Ur Leukocyte Esterase (Negative) Urine RBC (0-5) /hpf Urine WBC (0-5) /hpf Ur Squamous Epith Cells (0-4) /hpf Urine Mucus (None) /hpf - Radiology Data Radiology results: report reviewed, image reviewed Disposition Clinical Impression: Left ovarian cyst Disposition: HOME SELF-CARE Instructions (If sedation given, give patient instructions): Ovarian Cyst (ED) Additional Instructions: Return to the emergency department with any new, worsening, or concerning symptoms. Take the Toradol with Tylenol as needed for pain relief. You can take the Zofran up to every 8 hours as needed for nausea and vomiting. Take the [place] sparingly when your pain is the most severe. Follow up with your primary care provider in 1-2 days. Prescriptions: Ketorolac [Toradol] 10 mg PO Q6HR PRN #15 tab PRN Reason: Pain Ondansetron Odt [Zofran Odt] 4 mg PO Q8HR PRN #20 tab PRN Reason: Nausea And Vomiting Is patient prescribed a controlled substance at d/c from ED?: No Referrals: Armando Willams MD [Primary Care Provider] - 1-2 days
[2023-01-17 12:00] LABS: ALT 22 U/L (4-34); AST 23 U/L (14-36); African American GFR (CKD) >90 (>60 ml/min/1.73 sqM); Albumin 4.8 g/dL (3.5-5.0); Alkaline Phosphatase 69 U/L (38-126); Amylase 98 U/L (30-110); Anion Gap 12 mmol/L; Blood Urea Nitrogen 10 mg/dL (7-17); Calcium 9.8 mg/dL (8.4-10.2); Carbon Dioxide 23 mmol/L (22-30); Chloride 103 mmol/L (98-107); Glucose 93 mg/dL (74-99); Lipase 68 U/L (23-300); Non-African American GFR(CKD) >90 (>60 ml/min/1.73 sqM); Potassium 3.7 mmol/L (3.5-5.1); Sodium 138 mmol/L (137-145); Total Bilirubin 0.4 mg/dL (0.2-1.3); Total Protein 7.9 g/dL (6.3-8.2)
[2023-01-17 12:03] LABS: Appearance,Urine Cloudy (Clear); Bilirubin,Urine Negative (Negative); Blood,Urine Small (Negative); Color,Urine Yellow; Glucose,Urine (UA) Negative (Negative); Ketones,Urine Negative (Negative); Leukocyte Esterase,Urine Negative (Negative); Mucus,Urine Many /hpf; Nitrite,Urine Negative (Negative); PH, Urine 6.5 (5.0-8.0); Protein,Urine Negative (Negative); RBC,Urine 9 /hpf (0-5); Specific Gravity,Urine 1.024 (1.001-1.035); Squamous Epithelial Cell,Urine 15 /hpf (0-4); Urobilinogen,Urine <2.0 mg/dL (<2.0); WBC,Urine 3 /hpf (0-5)
--- NOTE | 2023-01-17 12:22 | CT ---
EXAMINATION TYPE: CT abdomen pelvis wo con DATE OF EXAM: 01/17/2023 COMPARISON: HISTORY: LEFT FLANK PAIN, HEAMTURIA CT DLP: 443.7 mGycm Automated exposure control for dose reduction was used. TECHNIQUE: Helical acquisition of images was performed from the lung bases through the pelvis. FINDINGS: LUNG BASES: No significant abnormality is appreciated. LIVER/GB: No significant abnormality is appreciated. PANCREAS: No significant abnormality is seen. SPLEEN: No significant abnormality is seen. ADRENALS: No significant abnormality is seen. KIDNEYS: No significant abnormality is seen. REPRODUCTIVE ORGANS: A prominent left ovary URINARY BLADDER: Limited by incomplete distention ADENOPATHY: None visualized. OSSEOUS STRUCTURES: No significant abnormality is seen. BOWEL: No evidence of obstruction. Significant retained fecal debris correlate for constipation. Chanelle endix not visualized. OTHER: Aorta normal caliber. No sizable free fluid or free air. IMPRESSION: 1 CORRELATE FOR CONSTIPATION. 2. NO HYDRONEPHROSIS OR NEPHROLITHIASIS. 3. POSTCHOLECYSTECTOMY CHANGES. 4. PROMINENT LEFT OVARY CONSIDER SHORT-TERM FOLLOW-UP PELVIC ULTRASOUND.
[2023-01-17] MEDS ORDERED: HYDROmorphone 1 MG/ML 1 ML SYRINGE IVP STA ×2 (12:31→14:00)
--- NOTE | 2023-01-17 13:47 | US ---
EXAMINATION TYPE: US pelvis complete transvag DATE OF EXAM: 01/17/2023 COMPARISON: CT 2022, US 2021 CLINICAL INDICATION: Female, 37 years old with history of Left sided pelvic pain; Left sided pain, N/ V TECHNIQUE: Transvaginal ER exam Date of LMP: 2014 EXAM MEASUREMENTS: Right Ovary: 1.8 x 1.7 x 1.3 cm Left Ovary: 2.7 x 1.9 x 1.7 cm 1. Uterus: surgically absent 2. Endometrium: surgically absent 3. Right Ovary: wnl 4. Left Ovary: 1.2 x 1.0 x 0.9cm ill-defined hypoechoic area Spectral, color and waveform doppler imaging shows good arterial and venous flow within the ovaries ; there is no evidence for ovarian torsion. 5. Bilateral Adnexa: wnl 6. Posterior cul-de-sac: wnl IMPRESSION: 1. Small cystlike area left ovary. Follow-up exam on the next normal menstrual period for 6 weeks is recommended.
[2023-01-17 15:17] VITALS: BP 102/61; PULSE 88; RESP 18; TEMP 97.9
== END 2023-01-17 14:56 | disposition home or self-care (01) ==
LOC: EC 10:57
DX: N83.202 Unspecified ovarian cyst, left side (principal); Z88.8 Allergy status to other drugs, medicaments and biological substances; Z86.16 Personal history of COVID-19; Z90.49 Acquired absence of other specified parts of digestive tract
CPT/HCPCS: 36415; 80053; 82150; 83605; 83690; 85025; 81001; 93975; 76830; 74176; 99284; 96374; 96375 ×2; 96376 ×3; 96361; J2405; J1170; J1885

== ENCOUNTER 2023-09-06 15:24 | Emergency (ER) | payer OTHER ==
[2023-09-06 15:31] VITALS: TEMP 98.3
--- NOTE | 2023-09-06 16:25 | ED ---
Abdominal Pain HPI - General Chief Complaint: Abdominal Pain Stated Complaint: Vomiting,Abd Pain Time Seen by Provider: 09/06/23 15:44 Source: patient, RN notes reviewed Mode of arrival: ambulatory Limitations: no limitations - History of Present Illness Initial Comments: 38-year-old female with history of kidney stones, Crohn's, and colitis presenting with left lower quadrant pain x 1 day with vomiting and dysuria. States the pain feels like a burning sensation and radiates to the left flank. She also admits her stools have been more loose recently, last bowel movement was this morning. Denies hematuria but states her urine looks darker than u sual. Denies fevers or chills. - Related Data Home Medications Medication Instructions Recorded Confirmed Dicyclomine [Bentyl] 20 mg PO TID 05/12/23 09/06/23 Pantoprazole Sodium [Protonix] 40 mg PO BID 05/12/23 09/06/23 HYDROcodone/APAP 10-325MG [[place] 1 tab PO Q6H PRN 09/06/23 09/06/23 10-325] Omeprazole 40 mg PO BID 09/06/23 09/06/23 Allergies Allergy/AdvReac Type Severity Reaction Status Date / Time metoclopramide [From Reglan] AdvReac Mild Rapid Verified 09/06/23 17:49 Heart Rate & Shortness of Breath prochlorperazine maleate AdvReac Rapid Verified 09/06/23 17:49 [From Compazine] Heart Rate & Shortness of Breath Review of Systems ROS Statement: Those systems with pertinent positive or pertinent negative responses have been documented in the HPI. ROS Other: All systems not noted in ROS Statement are negative. Past Medical History Past Medical History: Renal Disease Additional Past Medical History / Comment(s): COLITIS, uti's, kidney infections, interstitial cystitis, kidney stones, RECTAL BLEEDING, cronhs,. covid 02/01 History of Any Multi-Drug Resistant Organisms: None Reported Past Surgical History: Appendectomy, Cholecystectomy, Hysterectomy, Tubal Ligation Additional Past Surgical History / Comment(s): novasure ENDOMETRIAL ABLATION, COLONOSCOPY Past Anesthesia/Blood Transfusion Reactions: No Reported Reaction Past Psychological History: No Psychological Hx Reported Smoking Status: Never smoker Past Alcohol Use History: None Reported Past Drug Use History: None Reported - Past Family History Father Family Medical History: No Reported History Mother Family Medical History: Cancer Additional Family Medical History / Comment(s): COLON CANCER General Exam Limitations: no limitations General appearance: alert, in no apparent distress Head exam: Present: atraumatic, normocephalic, normal inspection Eye exam: Present: normal appearance, PERRL, EOMI. Absent: scleral icterus, conjunctival injection, periorbital swelling ENT exam: Present: normal exam, mucous membranes moist Neck exam: Present: normal inspection. Absent: tenderness, meningismus, lymphadenopathy Respiratory exam: Present: normal lung sounds bilaterally. Absent: respiratory distress, wheezes, rales, rhonchi, stridor Cardiovascular Exam: Present: regular rate, normal rhythm, normal heart sounds. Absent: systolic murmur, diastolic murmur, rubs, gallop, clicks GI/Abdominal exam: Present: soft, tenderness (Left lower quadrant tenderness), normal bowel sounds. Absent: distended, guarding, rebound, rigid Back exam: Present: normal inspection. Absent: CVA tenderness (R), CVA tenderness (L), paraspinal tenderness, rash noted Neurological exam: Present: alert Psychiatric exam: Present: normal affect, normal mood Skin exam: Present: warm, dry, intact, normal color. Absent: rash Course Vital Signs 09/06/23 09/06/23 09/06/23 15:28 17:43 19:40 Temperature 98.3 F Pulse Rate 89 85 88 Respiratory 18 18 16 Rate Blood Pressure 119/73 106/71 96/60 O2 Sat by Pulse 97 98 98 Oximetry Medical Decision Making - Medical Decision Making Was pt. sent in by a medical professional or institution (, PA, EXCHANGE FLOOR MANAGER, urgent care, hospital, or skilled nursing...) When possible be specific @ -No Did you speak to anyone other than the patient for history (EMS, parent, family, police, friend...)? What history was obtained from this source @ -No Did you review nursing and triage notes (agree or disagree)? Why? @ -I reviewed and agree with nursing and triage notes Were old charts reviewed (outside hosp., previous admission, EMS record, old EKG, old radiological studies, urgent care reports/EKG's, skilled nursing records)? Report findings @ -No old charts were reviewed Differential Diagnosis (chest pain, altered mental status, abdominal pain women, abdominal pain men, vaginal bleeding, weakness, fever, dyspnea, syncope, headache, dizziness, GI bleed, back pain, seizure, CVA, palpatations, mental health, musculoskeletal)? @ -Differential Abdominal Pain Women: Appendicitis, Cholecystitis, diverticulosis, ischemic bowel, pancreatitis, hepatitis, UTI, gastroenteritis, AAA, incarcerated hernia, bowel obstruction, constipation, inflammatory bowel, hepatitis, peptic ulcer disease, splenic infarction, perforated viscus, vulvitis, ovarian torsion, PID, kidney stone, placenta abruption, this is not meant to be an all-inclusive list EKG interpreted by me (3pts min.). @ -None X-rays interpreted by me (1pt min.). @ -None done CT interpreted by me (1pt min.). @ -CT reveals no evidence for acute abdominal process visualized. There is hyperemic follicles bilaterally U/S interpreted by me (1pt. min.). @ -None done What testing was considered but not performed or refused? (CT, X-rays, U/S, labs)? Why? @ -None What meds were considered but not given or refused? Why? @ -None Did you discuss the management of the patient with other professionals (professionals i.e. , PA, EXCHANGE FLOOR MANAGER, lab, RT, psych nurse, delinquency prevention social worker, optometric technologist, teacher, physics technical officer, case planner)? Give summary @ -No Was smoking cessation discussed for >3mins.? @ -No Was critical care preformed (if so, how long)? @ -No Were there social determinants of health that impacted care today? How? (Homelessness, low income, unemployed, alcoholism, drug addiction, transportation, low edu. Level, literacy, decrease access to med. care, care home, rehab)? @ -No Was there de-escalation of care discussed even if they declined (Discuss DNR or withdrawal of care, Hospice)? DNR status @ -No What co-morbidities impacted this encounter? (DM, HTN, Smoking, COPD, CAD, Cancer, CVA, ARF, Chemo, Hep., AIDS, mental health diagnosis, sleep apnea, morbid obesity)? @ -None Was patient admitted / discharged? Hospital course, mention meds given and route, prescriptions, significant lab abnormalities, going to OR and other pertinent info. @ -Patient was discharged. Patient was seen and evaluated for abdominal pain x 1 day. She has a history of Crohn's disease and kidney stones. Patient's vitals are stable, she is afebrile and nontachycardic. There is mild tenderness upon left lower quadrant. Patient was given IV Dilaudid, Zofran, and IV fluids. Lab work including CBC, CMP, lactic acid, and lipase unremarkable. Urine reveals trace blood however otherwise negative for ketones or bacteria. Urine culture sent. CT of abdomen pelvis reveals no evidence for acute abdominal process. Discussed with patient there is no sign of emergent etiology causing abdominal pain today. Advise close follow-up with GI doctor and PCP. Discharged with starter pack for Zofran and Tylenol threes. Return/alarm sy mptoms discussed with patient in detail and she shows understanding agrees to plan. Case discussed with Dr. Knight. Patient discharged in stable condition. Undiagnosed new problem with uncertain prognosis? @ -No Drug Therapy requiring intensive monitoring for toxicity (Heparin, Nitro, Insulin, Cardizem)? @ -No Were any procedures done? @ -No Diagnosis/symptom? @ -Abdominal pain Acute, or Chronic, or Acute on Chronic? @ -Acute Uncomplicated (without systemic symptoms) or Complicated (systemic symptoms)? @ -Uncomplicated Side effects of treatment? @ -No Exacerbation, Progression, or Severe Exacerbation? @ -No Poses a threat to life or bodily function? How? (Chest pain, USA, NM, pneumonia, PE, COPD, DKA, ARF, appy, cholecystitis, CVA, Diverticulitis, Homicidal, Suicidal, threat to staff... and all critical care pts) @ -Low likelihood - Lab Data Result diagrams: 09/06/23 16:55 09/06/23 16:55 Lab Results 09/06/23 09/06/23 09/06/23 Range/Units 16:55 16:55 16:55 WBC 8.6 (3.8-10.6) k/uL RBC 3.97 (3.80-5.40) m/uL Hgb 12.5 (11.4-16.0) gm/dL Hct 38.2 (34.0-46.0) % MCV 96.4 (80.0-100.0) fL MCH 31.4 (25.0-35.0) pg MCHC 32.6 (31.0-37.0) g/dL RDW 11.7 (11.5-15.5) % Plt Count 303 (150-450) k/uL MPV 7.2 Neutrophils % 53 % Lymphocytes % 36 % Monocytes % 5 % Eosinophils % 2 % Basophils % 1 % Neutrophils # 4.6 (1.3-7.7) k/uL Lymphocytes # 3.1 (1.0-4.8) k/uL Monocytes # 0.5 (0-1.0) k/uL Eosinophils # 0.2 (0-0.7) k/uL Basophils # 0.1 (0-0.2) k/uL Sodium 138 (137-145) mmol/L Potassium 3.5 (3.5-5.1) mmol/L Chloride 107 (98-107) mmol/L Carbon Dioxide 24 (22-30) mmol/L Anion Gap 7 mmol/L BUN 9 (7-17) mg/dL Creatinine 0.58 (0.52-1.04) mg/dL Est GFR (CKD-EPI)AfAm >90 (>60 ml/min/1.73 sqM) Est GFR (CKD-EPI)NonAf >90 (>60 ml/min/1.73 sqM) Glucose 80 (74-99) mg/dL Plasma Lactic Acid Kevin (0.7-2.0) mmol/L Calcium 9.3 (8.4-10.2) mg/dL Total Bilirubin 0.4 (0.2-1.3) mg/dL AST 20 (14-36) U/L ALT 14 (4-34) U/L Alkaline Phosphatase 69 (38-126) U/L Total Protein 6.9 (6.3-8.2) g/dL Albumin 4.4 (3.5-5.0) g/dL Lipase 198 (23-300) U/L Urine Color Urine Appearance (Clear) Urine pH (5.0-8.0) Ur Specific [place] (1.001-1.035) Urine Protein (Negative) Urine Glucose (UA) (Negative) Urine Ketones (Negative) Urine Blood (Negative) Urine Nitrite (Negative) Urine Bilirubin (Negative) Urine Urobilinogen (<2.0) mg/dL Ur Leukocyte Esterase (Negative) Urine RBC (0-5) /hpf Urine WBC (0-5) /hpf Ur Squamous Epith Cells (0-4) /hpf Urine Mucus (None) /hpf Urine HCG, Qual Not Detected (Not Detectd) 09/06/23 09/06/23 Range/Units 16:55 16:55 WBC (3.8-10.6) k/uL RBC (3.80-5.40) m/uL Hgb (11.4-16.0) gm/dL Hct (34.0-46.0) % MCV (80.0-100.0) fL MCH (25.0-35.0) pg MCHC (31.0-37.0) g/dL RDW (11.5-15.5) % Plt Count (150-450) k/uL MPV Neutrophils % % Lymphocytes % % Monocytes % % Eosinophils % % Basophils % % Neutrophils # (1.3-7.7) k/uL Lymphocytes # (1.0-4.8) k/uL Monocytes # (0-1.0) k/uL Eosinophils # (0-0.7) k/uL Basophils # (0-0.2) k/uL Sodium (137-145) mmol/L Potassium (3.5-5.1) mmol/L Chloride (98-107) mmol/L Carbon Dioxide (22-30) mmol/L Anion Gap mmol/L BUN (7-17) mg/dL Creatinine (0.52-1.04) mg/dL Est GFR (CKD-EPI)AfAm (>60 ml/min/1.73 sqM) Est GFR (CKD-EPI)NonAf (>60 ml/min/1.73 sqM) Glucose (74-99) mg/dL Plasma Lactic Acid Kevin 0.7 (0.7-2.0) mmol/L Calcium (8.4-10.2) mg/dL Total Bilirubin (0.2-1.3) mg/dL AST (14-36) U/L ALT (4-34) U/L Alkaline Phosphatase (38-126) U/L Total Protein (6.3-8.2) g/dL Albumin (3.5-5.0) g/dL Lipase (23-300) U/L Urine Color Light Yellow Urine Appearance Cloudy H (Clear) Urine pH 6.5 (5.0-8.0) Ur Specific [place] 1.025 (1.001-1.035) Urine Protein Negative (Negative) Urine Glucose (UA) Negative (Negative) Urine Ketones Negative (Negative) Urine Blood Trace H (Negative) Urine Nitrite Negative (Negative) Urine Bilirubin Negative (Negative) Urine Urobilinogen <2.0 (<2.0) mg/dL Ur Leukocyte Esterase Negative (Negative) Urine RBC 4 (0-5) /hpf Urine WBC 3 (0-5) /hpf Ur Squamous Epith Cells 7 H (0-4) /hpf Urine Mucus Many H (None) /hpf Urine HCG, Qual (Not Detectd) Disposition Clinical Impression: Abdominal pain Disposition: HOME SELF-CARE Condition: Stable Instructions (If sedation given, give patient instructions): Abdominal Pain (ED) Additional Instructions: Follow-up with GI specialist/PCP for further workup. Please return to the Emergency Department if symptoms worsen or any other concerns. Is patient prescribed a controlled substance at d/c from ED?: Yes If prescribed controlled substance>3 days was MAPS reviewed?: Prescribed <3 Days Referrals: Armando Willams MD [Primary Care Provider] - 1-2 days Time of Disposition: 19:24
[2023-09-06] MEDS: SODIUM CHLORIDE 0.9% 1,000 ML IV STA (17:06)
[2023-09-06] MEDS: ONDANSETRON 4 MG/2 ML VIAL IVP STA (17:06)
[2023-09-06] MEDS: HYDROmorphone 0.5 MG/0.5 ML SYRINGE IVP STA (17:07)
[2023-09-06 17:20] LABS: Basophils # (A) 0.1 k/uL (0-0.2); Basophils % (A) 1 %; Eosinophils # (A) 0.2 k/uL (0-0.7); Eosinophils % (A) 2 %; HCT 38.2 % (34.0-46.0); HGB 12.5 gm/dL (11.4-16.0); Lymphocytes # (A) 3.1 k/uL (1.0-4.8); Lymphocytes % (A) 36 %; MCH 31.4 pg (25.0-35.0); MCHC 32.6 g/dL (31.0-37.0); MCV 96.4 fL (80.0-100.0); Mean Platelet Volume 7.2; Monocytes # (A) 0.5 k/uL (0-1.0); Monocytes % (A) 5 %; Neutrophils # (A) 4.6 k/uL (1.3-7.7); Neutrophils % (A) 53 %; Platelet Count 303 k/uL (150-450); RBC 3.97 m/uL (3.80-5.40); RDW 11.7 % (11.5-15.5); WBC 8.6 k/uL (3.8-10.6)
[2023-09-06 17:26] LABS: Appearance,Urine Cloudy (Clear); Bilirubin,Urine Negative (Negative); Blood,Urine Trace (Negative); Color,Urine Light Yellow; Glucose,Urine (UA) Negative (Negative); Ketones,Urine Negative (Negative); Leukocyte Esterase,Urine Negative (Negative); Mucus,Urine Many /hpf; Nitrite,Urine Negative (Negative); PH, Urine 6.5 (5.0-8.0); Protein,Urine Negative (Negative); RBC,Urine 4 /hpf (0-5); Specific Gravity,Urine 1.025 (1.001-1.035); Squamous Epithelial Cell,Urine 7 /hpf (0-4); Urobilinogen,Urine <2.0 mg/dL (<2.0); WBC,Urine 3 /hpf (0-5)
[2023-09-06 17:41] LABS: ALT 14 U/L (4-34); AST 20 U/L (14-36); African American GFR (CKD) >90 (>60 ml/min/1.73 sqM); Albumin 4.4 g/dL (3.5-5.0); Alkaline Phosphatase 69 U/L (38-126); Anion Gap 7 mmol/L; Blood Urea Nitrogen 9 mg/dL (7-17); Calcium 9.3 mg/dL (8.4-10.2); Carbon Dioxide 24 mmol/L (22-30); Chloride 107 mmol/L (98-107); Glucose 80 mg/dL (74-99); Lipase 198 U/L (23-300); Non-African American GFR(CKD) >90 (>60 ml/min/1.73 sqM); Potassium 3.5 mmol/L (3.5-5.1); Sodium 138 mmol/L (137-145); Total Bilirubin 0.4 mg/dL (0.2-1.3); Total Protein 6.9 g/dL (6.3-8.2)
--- NOTE | 2023-09-06 19:01 | CT ---
EXAMINATION TYPE: CT abdomen pelvis w con CT DLP: 598.8 mGycm, Automated exposure control for dose reduction was used. DATE OF EXAM: 09/06/2023 6:05 PM COMPARISON: CT abdomen pelvis most recent from 05/12/2023 CLINICAL INDICATION:Female, 38 years old with history of LLQ abd pain; LLQ abd pain TECHNIQUE: Axial CT abdomen pelvis w con;Sagittal and coronal reformats were created on a separate w orkstation. Contrast used:100ml mL of Isovue 300 with IV Contrast, (none if empty) Oral contrast used: without Oral Contrast (none if empty) FINDINGS: LOWER CHEST: Unremarkable ABDOMEN LIVER: Unremarkable GALLBLADDER AND BILE DUCTS: Gallbladder is surgically absent with mild intrahepatic and extra hepatic biliary dilatation likely physiologic and a postcholecystectomy change. No evidence of choledocholit hiasis. PANCREAS: Unremarkable. SPLEEN: Unremarkable. ADRENAL GLANDS: Unremarkable. KIDNEYS AND URETERS: No evidence of hydronephrosis or renal calculus. The ureters are unremarkable. PELVIS BLADDER: Unremarkable REPRODUCTIVE: Hyperemic follicles are seen in the bilateral ovaries. Uterus is surgically absent. ABDOMEN & PELVIS STOMACH AND BOWEL: No evidence of bowel obstruction. PERITONEUM/RETROPERITONEUM: No evidence of pneumoperitoneum or free fluid. VASCULATURE: No evidence of aortic aneurysm. MUSCULOSKELETAL: No acute osseous abnormalities LYMPH NODES: No gross evidence for lymphadenopathy. SOFT TISSUE/ABDOMINAL WALL: Unremarkable IMPRESSION: No evidence for acute abdominal process definitively visualized. There are Hyperemic follicles in the bilateral ovaries.
[2023-09-06] MEDS: ONDANSETRON 4 MG ODT STARTER PACK 2 TAB BTL PO STA (19:35)
[2023-09-06] MEDS: ACET/COD 300 MG/30 MG STARTER PACK 6 TAB BTL PO STA (19:35)
[2023-09-06 19:41] VITALS: BP 96/60; PULSE 88; RESP 16
== END 2023-09-06 19:41 | disposition home or self-care (01) ==
LOC: EC 15:24
DX: R10.32 Left lower quadrant pain (principal); Z88.8 Allergy status to other drugs, medicaments and biological substances
CPT/HCPCS: 36415; 80053; 83605; 83690; 85025; 81001; 81025; 74177; 99284; 96374; 96375; 96361; J2405; S0119; J1170; Q9967

== ENCOUNTER 2023-09-24 11:47 | Emergency (ER) | payer OTHER ==
[2023-09-24 12:01] VITALS: RESP 16
--- NOTE | 2023-09-24 12:13 | ED ---
Female Urogenital HPI - General Chief complaint: Urogenital Stated complaint: Vomiting,Abd pain Time Seen by Provider: 09/24/23 12:13 Source: patient, RN notes reviewed Mode of arrival: ambulatory Limitations: no limitations - History of Present Illness Initial comments: 38-year-old female with a past medical history significant of Crohn's disease, colitis, and nutcracker syndrome presenting to the ER with a chief complaint of left flank pain. Patient reports for the past week she has been endorsing left flank/abdominal pain that has increased in intensity. She describes it as a sharp aching pain. She states she has also been having persistent diarrhea. She denies any hematochezia or melena. She also reports nausea and vomiting. She states recently she noticed blood when wiping after urinating. She denies any vaginal bleeding as she underwent a hysterectomy. Patient would like to be tested for STDs and states she has been having some white vaginal discharge. Patient has not been taking any medications for her current symptoms as she is unable to keep them down. Denies any fevers, chills, chest pain, shortness of breath or peripheral edema. - Related Data Home Medications Medication Instructions Recorded Confirmed Dicyclomine [Bentyl] 20 mg PO TID 05/12/23 09/06/23 Pantoprazole Sodium [Protonix] 40 mg PO BID 05/12/23 09/06/23 HYDROcodone/APAP 10-325MG [[place] 1 tab PO Q6H PRN 09/06/23 09/06/23 10-325] Omeprazole 40 mg PO BID 09/06/23 09/06/23 Previous Rx's Medication Instructions Recorded Doxycycline [Vibramycin] 100 mg PO BID #14 capsule 09/24/23 Ondansetron Odt [Zofran Odt] 4 mg PO Q8HR PRN #10 tab 09/24/23 metroNIDAZOLE [Flagyl] 500 mg PO ONCE #4 tab 09/24/23 Allergies Allergy/AdvReac Type Severity Reaction Status Date / Time metoclopramide [From Reglan] AdvReac Mild Rapid Verified 09/24/23 12:01 Heart Rate & Shortness of Breath prochlorperazine maleate AdvReac Rapid Verified 09/24/23 12:01 [From Compazine] Heart Rate & Shortness of Breath Review of Systems ROS Statement: Those systems with pertinent positive or pertinent negative responses have been documented in the HPI. ROS Other: All systems not noted in ROS Statement are negative. Past Medical History Past Medical History: Renal Disease Additional Past Medical History / Comment(s): COLITIS, uti's, kidney infections, interstitial cystitis, kidney stones, RECTAL BLEEDING, cronhs,. covid 02/01 History of Any Multi-Drug Resistant Organisms: None Reported Past Surgical History: Appendectomy, Cholecystectomy, Hysterectomy, Tubal Ligation Additional Past Surgical History / Comment(s): novasure ENDOMETRIAL ABLATION, COLONOSCOPY Past Anesthesia/Blood Transfusion Reactions: No Reported Reaction Past Psychological History: No Psychological Hx Reported Smoking Status: Never smoker Past Alcohol Use History: None Reported Past Drug Use History: None Reported - Past Family History Father Family Medical History: No Reported History Mother Family Medical History: Cancer Additional Family Medical History / Comment(s): COLON CANCER General Exam Limitations: no limitations General appearance: alert, in no apparent distress Respiratory exam: Present: normal lung sounds bilaterally. Absent: respiratory distress, wheezes, rales, rhonchi, stridor Cardiovascular Exam: Present: regular rate, normal rhythm, normal heart sounds. Absent: systolic murmur, diastolic murmur, rubs, gallop, clicks GI/Abdominal exam: Present: soft, tenderness (left sided), normal bowel sounds Extremities exam: Present: normal inspection, full ROM, normal capillary refill. Absent: tenderness, pedal edema, joint swelling, calf tenderness Back exam: Present: CVA tenderness (L) Neurological exam: Present: alert, oriented X3, CN II-XII intact Skin exam: Present: warm, dry, intact, normal color. Absent: rash Course Vital Signs 09/24/23 09/24/23 11:58 16:39 Temperature 98.3 F 98.9 F Pulse Rate 101 H 79 Respiratory 16 16 Rate Blood Pressure 120/81 104/84 O2 Sat by Pulse 98 98 Oximetry - Reevaluation(s) Reevaluation #1: 09/24/23 15:17 Patient reevaluated. Patient rating her pain a 6 out of 10. Patient updated on plan of care. Patient resting comfortably in exam room in no signs of acute d istress. Reevaluation #2: 09/24/23 16:17 Patient reevaluated. Patient resting comfortably in exam room in no signs of acute distress. Patient eager for discharge. Medical Decision Making - Medical Decision Making Was pt. sent in by a medical professional or institution (PHYLLIS Burnett, INVESTIGATION CLERK, urgent care, hospital, or fpc...) When possible be specific @ -No Did you speak to anyone other than the patient for history (EMS, parent, family, police, friend...)? What history was obtained from this source @ -No Did you review nursing and triage notes (agree or disagree)? Why? @ -I reviewed and agree with nursing and triage notes Were old charts reviewed (outside hosp., previous admission, EMS record, old EKG, old radiological studies, urgent care reports/EKG's, fpc records)? Report findings @ -No old charts were reviewed Differential Diagnosis (chest pain, altered mental status, abdominal pain women, abdominal pain men, vaginal bleeding, weakness, fever, dyspnea, syncope, headache, dizziness, GI bleed, back pain, seizure, CVA, palpatations, mental health, musculoskeletal)? @ -Differential Abdominal Pain Women:Appendicitis, Cholecystitis, diverticulosis, ischemic bowel, pancreatitis, hepatitis, UTI, gastroenteritis, AAA, incarcerated hernia, bowel obstruction, constipation, inflammatory bowel, hepatitis, peptic ulcer disease, splenic infarction, perforated viscus, vulvitis, ovarian torsion, PID, kidney stone, placenta abruption, this is not meant to be an all-inclusive list EKG interpreted by me (3pts min.). @ -None X-rays interpreted by me (1pt min.). @ -KUB x-ray interpreted by me significant for nonspecific gas bowel pattern without radiographic evidence of acute process. CT interpreted by me (1pt min.). @ -None done U/S interpreted by me (1pt. min.). @ -None done What testing was considered but not performed or refused? (CT, X-rays, U/S, labs)? Why? @ -CT abdomen pelvis considered but not performed. Patient has had multiple CT scans recently and stated she would like to refrain from further radiation at this time. Will start with KUB. Patient agreeable to this plan. What meds were considered but not given or refused? Why? @ -None Did you discuss the management of the patient with other professionals (professionals i.e. , PHYLLIS, INVESTIGATION CLERK, lab, RT, psych nurse, social media job titles, interlibrary loan services librarian, teacher, highway patrol officer, disease case manager rn)? Give summary @ -No Was smoking cessation discussed for >3mins.? @ -No Was critical care preformed (if so, how long)? @ -No Were there social determinants of health that impacted care today? How? (Homelessness, low income, unemployed, alcoholism, drug addiction, transportation, low edu. Level, literacy, decrease access to med. care, prison, rehab)? @ -No Was there de-escalation of care discussed even if they declined (Discuss DNR or withdrawal of care, Hospice)? DNR status @ -No What co-morbidities impacted this encounter? (DM, HTN, Smoking, COPD, CAD, Cancer, CVA, ARF, Chemo, Hep., AIDS, mental health diagnosis, sleep apnea, mo rbid obesity)? @ -Crohn's disease, nutcracker syndrome, history of kidney stone Was patient admitted / discharged? Hospital course, mention meds given and route, prescriptions, significant lab abnormalities, going to OR and other pertinent info. @ -Discharge. 38-year-old female presented to ER with a chief complaint of left flank pain and blood on toilet paper after urination. History and physical exam completed. Vitals stable. Patient in no signs of acute distress and nontoxic-appearing. Exam remarkable for left-sided abdominal tenderness with normal bowel sounds. No rebound or guarding. Positive left CVA tenderness. Laboratory studies obtained remarkable for white blood cell count 7.1 hemoglobin stable at 12.9 otherwise unremarkable. Urinalysis hemorrhagic with trace blood and 7 red blood cells. Urine sent for culture. Urine also tested for gonorrhea, chlamydia and trichomonas. KUB performed as patient has had multiple CT scans and would like to refrain from further radiation at this time. KUB significant for nonspecific gas bowel pattern. No evidence of acute process. Due to patient's history of kidney stones, CVA tenderness, pain and moving from left flank to suprapubic throughout ER stay believed pain and symptoms to be related to nephrolithiasis. Patient received symptomatic control in the ER. Upon reevaluation, patient resting comfortably in exam room in no signs of acute distress. Discussed with patient, all questions answered. Patient eager for discharge at this time. Patient would like to be prophylactically treated for STDs. Patient received 500 mg IV Rocephin prior to discharge. Doxycycline and Flagyl prescribed. Strict return parameters discussed. Patient discharged in stable condition with follow-up to PCP. Patient verbally expressed understanding and agreed with care plan. Case discussed with ED attending, Dr. Faustin. Undiagnosed new problem with uncertain prognosis? @ -No Drug Therapy requiring intensive monitoring for toxicity (Heparin, Nitro, Insulin, Cardizem)? @ -No Were any procedures done? @ -No Diagnosis/symptom? @ -Flank pain/STD exposure Acute, or Chronic, or Acute on Chronic? @ -Acute Uncomplicated (without systemic symptoms) or Complicated (systemic symptoms)? @ -Uncomplicated Side effects of treatment? @ -No Exacerbation, Progression, or Severe Exacerbation? @ -No Poses a threat to life or bodily function? How? (Chest pain, [place], [place], pneumonia, PE, COPD, DKA, ARF, appy, cholecystitis, CVA, Diverticulitis, Homicidal, Suicidal, threat to staff... and all critical care pts) @ -Low likelihood - Lab Data Result diagrams: 09/24/23 12:30 09/24/23 12:30 Lab Results 09/24/23 09/24/23 09/24/23 Range/Units 12:30 12:30 12:30 WBC 7.1 (3.8-10.6) k/uL RBC 3.96 (3.80-5.40) m/uL Hgb 12.9 (11.4-16.0) gm/dL Hct 38.4 (34.0-46.0) % MCV 97.1 (80.0-100.0) fL MCH 32.6 (25.0-35.0) pg MCHC 33.6 (31.0-37.0) g/dL RDW 11.6 (11.5-15.5) % Plt Count 342 (150-450) k/uL MPV 7.1 Neutrophils % 57 % Lymphocytes % 32 % Monocytes % 5 % Eosinophils % 3 % Basophils % 1 % Neutrophils # 4.0 (1.3-7.7) k/uL Lymphocytes # 2.3 (1.0-4.8) k/uL Monocytes # 0.4 (0-1.0) k/uL Eosinophils # 0.2 (0-0.7) k/uL Basophils # 0.0 (0-0.2) k/uL Sodium 140 (137-145) mmol/L Potassium 4.1 (3.5-5.1) mmol/L Chloride 108 H (98-107) mmol/L Carbon Dioxide 28 (22-30) mmol/L Anion Gap 4 mmol/L BUN 13 (7-17) mg/dL Creatinine 0.73 (0.52-1.04) mg/dL Est GFR (CKD-EPI)AfAm >90 (>60 ml/min/1.73 sqM) Est GFR (CKD-EPI)NonAf >90 (>60 ml/min/1.73 sqM) Glucose 84 (74-99) mg/dL Plasma Lactic Acid Kevin (0.7-2.0) mmol/L Calcium 9.9 (8.4-10.2) mg/dL Total Bilirubin 0.3 (0.2-1.3) mg/dL AST 19 (14-36) U/L ALT 11 (4-34) U/L Alkaline Phosphatase 63 (38-126) U/L Total Protein 7.4 (6.3-8.2) g/dL Albumin 4.6 (3.5-5.0) g/dL Amylase 86 (30-110) U/L Lipase 166 (23-300) U/L Urine Color Light Yellow Urine Appearance Cloudy H (Clear) Urine pH 6.5 (5.0-8.0) Ur Specific [place] 1.023 (1.001-1.035) Urine Protein Negative (Negative) Urine Glucose (UA) Negative (Negative) Urine Ketones Negative (Negative) Urine Blood Trace H (Negative) Urine Nitrite Negative (Negative) Urine Bilirubin Negative (Negative) Urine Urobilinogen <2.0 (<2.0) mg/dL Ur Leukocyte Esterase Trace H (Negative) Urine RBC 7 H (0-5) /hpf Urine WBC 2 (0-5) /hpf Ur Squamous Epith Cells 38 H (0-4) /hpf Urine Mucus Moderate H (None) /hpf 09/24/23 Range/Units 12:30 WBC (3.8-10.6) k/uL RBC (3.80-5.40) m/uL Hgb (11.4-16.0) gm/dL Hct (34.0-46.0) % MCV (80.0-100.0) fL MCH (25.0-35.0) pg MCHC (31.0-37.0) g/dL RDW (11.5-15.5) % Plt Count (150-450) k/uL MPV Neutrophils % % Lymphocytes % % Monocytes % % Eosinophils % % Basophils % % Neutrophils # (1.3-7.7) k/uL Lymphocytes # (1.0-4.8) k/uL Monocytes # (0-1.0) k/uL Eosinophils # (0-0.7) k/uL Basophils # (0-0.2) k/uL Sodium (137-145) mmol/L Potassium (3.5-5.1) mmol/L Chloride (98-107) mmol/L Carbon Dioxide (22-30) mmol/L Anion Gap mmol/L BUN (7-17) mg/dL Creatinine (0.52-1.04) mg/dL Est GFR (CKD-EPI)AfAm (>60 ml/min/1.73 sqM) Est GFR (CKD-EPI)NonAf (>60 ml/min/1.73 sqM) Glucose (74-99) mg/dL Plasma Lactic Acid Kevin 0.6 L (0.7-2.0) mmol/L Calcium (8.4-10.2) mg/dL Total Bilirubin (0.2-1.3) mg/dL AST (14-36) U/L ALT (4-34) U/L Alkaline Phosphatase (38-126) U/L Total Protein (6.3-8.2) g/dL Albumin (3.5-5.0) g/dL Amylase (30-110) U/L Lipase (23-300) U/L Urine Color Urine Appearance (Clear) Urine pH (5.0-8.0) Ur Specific [place] (1.001-1.035) Urine Protein (Negative) Urine Glucose (UA) (Negative) Urine Ketones (Negative) Urine Blood (Negative) Urine Nitrite (Negative) Urine Bilirubin (Negative) Urine Urobilinogen (<2.0) mg/dL Ur Leukocyte Esterase (Negative) Urine RBC (0-5) /hpf Urine WBC (0-5) /hpf Ur Squamous Epith Cells (0-4) /hpf Urine Mucus (None) /hpf - Radiology Data Radiology results: report reviewed, image reviewed Disposition Clinical Impression: Flank pain, STD exposure Disposition: HOME SELF-CARE Condition: Stable Instructions (If sedation given, give patient instructions): Kidney Stones (ED) Additional Instructions: Follow-up with PCP. Return to the ER for any new or worsening concerns. Prescriptions: metroNIDAZOLE [Flagyl] 500 mg PO ONCE #4 tab Doxycycline [Vibramycin] 100 mg PO BID #14 capsule Ondansetron Odt [Zofran Odt] 4 mg PO Q8HR PRN #10 tab PRN Reason: Nausea Is patient prescribed a controlled substance at d/c from ED?: No Referrals: Armando Willams MD [Primary Care Provider] - 1-2 days Time of Disposition: 16:19
[2023-09-24] MEDS: SODIUM CHLORIDE 0.9% 1,000 ML IV STA (12:31)
[2023-09-24] MEDS: ONDANSETRON 4 MG/2 ML VIAL IVP STA (12:31)
[2023-09-24 12:42] LABS: Basophils % (A) 1 %; Eosinophils # (A) 0.2 k/uL (0-0.7); Eosinophils % (A) 3 %; HCT 38.4 % (34.0-46.0); HGB 12.9 gm/dL (11.4-16.0); Lymphocytes # (A) 2.3 k/uL (1.0-4.8); Lymphocytes % (A) 32 %; MCH 32.6 pg (25.0-35.0); MCHC 33.6 g/dL (31.0-37.0); MCV 97.1 fL (80.0-100.0); Mean Platelet Volume 7.1; Monocytes # (A) 0.4 k/uL (0-1.0); Monocytes % (A) 5 %; Neutrophils % (A) 57 %; Platelet Count 342 k/uL (150-450); RBC 3.96 m/uL (3.80-5.40); RDW 11.6 % (11.5-15.5); WBC 7.1 k/uL (3.8-10.6)
[2023-09-24 12:47] LABS: Appearance,Urine Cloudy (Clear); Bilirubin,Urine Negative (Negative); Blood,Urine Trace (Negative); Color,Urine Light Yellow; Glucose,Urine (UA) Negative (Negative); Ketones,Urine Negative (Negative); Leukocyte Esterase,Urine Trace (Negative); Mucus,Urine Moderate /hpf; Nitrite,Urine Negative (Negative); PH, Urine 6.5 (5.0-8.0); Protein,Urine Negative (Negative); RBC,Urine 7 /hpf (0-5); Specific Gravity,Urine 1.023 (1.001-1.035); Squamous Epithelial Cell,Urine 38 /hpf (0-4); Urobilinogen,Urine <2.0 mg/dL (<2.0); WBC,Urine 2 /hpf (0-5)
[2023-09-24 12:51] LABS: ALT 11 U/L (4-34); AST 19 U/L (14-36); African American GFR (CKD) >90 (>60 ml/min/1.73 sqM); Albumin 4.6 g/dL (3.5-5.0); Alkaline Phosphatase 63 U/L (38-126); Amylase 86 U/L (30-110); Anion Gap 4 mmol/L; Blood Urea Nitrogen 13 mg/dL (7-17); Calcium 9.9 mg/dL (8.4-10.2); Carbon Dioxide 28 mmol/L (22-30); Chloride 108 mmol/L (98-107); Glucose 84 mg/dL (74-99); Lipase 166 U/L (23-300); Non-African American GFR(CKD) >90 (>60 ml/min/1.73 sqM); Potassium 4.1 mmol/L (3.5-5.1); Sodium 140 mmol/L (137-145); Total Bilirubin 0.3 mg/dL (0.2-1.3); Total Protein 7.4 g/dL (6.3-8.2)
[2023-09-24] MEDS: KETOROLAC 15 MG/ML 1 ML VIAL IVP STA (13:03)
--- NOTE | 2023-09-24 13:43 | XR ---
EXAMINATION TYPE: XR KUB DATE OF EXAM: 09/24/2023 1:17 PM CLINICAL INDICATION:Female, 38 years old with history of left sided abd pain; COMPARISON: 06/11/2020 TECHNIQUE: One radiographic view of the abdomen was obtained. FINDINGS: The bowel gas pattern is nonspecific without dilated loops of small or large bowel. . Fecal material and gas are demonstrated throughout the colon and rectum. There is no evidence for organomegaly or pneumoperitoneum. The osseous structures are intact. No ab normal calcifications are present. Right upper quadrant: Vasectomy clips. IMPRESSION: Nonspecific bowel gas pattern without radiographic evidence for acute process.
[2023-09-24] MEDS: HYDROmorphone 0.5 MG/0.5 ML SYRINGE IVP STA (14:42)
[2023-09-24] MEDS: HYDROmorphone 1 MG/ML 1 ML SYRINGE IVP STA (15:50)
[2023-09-24] MEDS: SODIUM CHLORIDE 0.9% 500 ML 500 ML IV STA (15:51)
[2023-09-24] MEDS: cefTRIAXone IN SWFI 1,000 MG/10 ML SYRINGE IVP STA (16:33)
[2023-09-24 16:41] VITALS: BP 104/84; PULSE 79; TEMP 98.9
[2023-09-26 13:53] LABS: C. trachomatis,PCR Negative (Negative)
[2023-09-26 14:26] LABS: N. gonorrhoeae,PCR Negative (Negative)
== END 2023-09-24 16:59 | disposition home or self-care (01) ==
LOC: EC 11:47
DX: Z20.2 Contact with and (suspected) exposure to infections with a predominantly sexual mode of transmission (principal); Z88.8 Allergy status to other drugs, medicaments and biological substances; Z86.16 Personal history of COVID-19
CPT/HCPCS: 36415; 80053; 82150; 83605; 83690; 85025; 81001; 87491; 87591; 87661; 74018; 99284; 96374; 96375 ×3; 96376; 96361; J2405; J0696; J1170 ×2; J1885

== ENCOUNTER 2023-11-08 07:59 | Emergency (ER) | payer OTHER ==
[2023-11-08 08:08] VITALS: RESP 16
--- NOTE | 2023-11-08 08:38 | ED ---
General Adult HPI - General Chief complaint: Nausea/Vomiting/Diarrhea Stated complaint: vomiting Time Seen by Provider: 11/08/23 08:20 Source: patient, RN notes reviewed, old records reviewed Mode of arrival: ambulatory Limitations: no limitations - History of Present Illness Initial comments: Patient is a 38-year-old female who does frequent our emergency department complaining of nausea, vomiting, chronic abdominal pain. Also states she has some pain with urinating. Possible blood in her urine. Denies any vaginal discharge or bleeding. Has a history of hysterectomy, cholecystectomy, appendectomy. No change in bowel habits. Endorses multiple days of nausea and vomiting. Nonbilious nonbloody emesis. No other acute complaints. Denies chest pain or shortness of breath. Presents for further evaluation at this time. - Related Data Home Medications Medication Instructions Recorded Confirmed Dicyclomine [Bentyl] 20 mg PO TID 05/12/23 09/06/23 Pantoprazole Sodium [Protonix] 40 mg PO BID 05/12/23 09/06/23 HYDROcodone/APAP 10-325MG [[place] 1 tab PO Q6H PRN 09/06/23 09/06/23 10-325] Omeprazole 40 mg PO BID 09/06/23 09/06/23 Previous Rx's Medication Instructions Recorded Doxycycline [Vibramycin] 100 mg PO BID #14 capsule 09/24/23 Ondansetron Odt [Zofran Odt] 4 mg PO Q8HR PRN #10 tab 09/24/23 metroNIDAZOLE [Flagyl] 500 mg PO ONCE #4 tab 09/24/23 Allergies Allergy/AdvReac Type Severity Reaction Status Date / Time metoclopramide [From Reglan] AdvReac Mild Rapid Verified 11/08/23 08:07 Heart Rate & Shortness of Breath prochlorperazine maleate AdvReac Rapid Verified 11/08/23 08:07 [From Compazine] Heart Rate & Shortness of Breath Review of Systems ROS Statement: Those systems with pertinent positive or pertinent negative responses have been documented in the HPI. Review of Systems: CONST: Denies fever EYES: Denies blurry vision ENT: Denies nasal congestion C/V: Denies Chest pain RESP: Denies shortness of breath GI: Endorses abdominal pain, nausea, vomiting : Endorses dysuria SKIN: Denies rash. MSK: Denies joint pain. NEURO: Denies headache ROS Other: All systems not noted in ROS Statement are negative. Past Medical History Past Medical History: Renal Disease Additional Past Medical History / Comment(s): COLITIS, uti's, kidney infections, interstitial cystitis, kidney stones, RECTAL BLEEDING, cronhs,. covid 02/01 History of Any Multi-Drug Resistant Organisms: None Reported Past Surgical History: Appendectomy, Cholecystectomy, Hysterectomy, Tubal Ligation Additional Past Surgical History / Comment(s): novasure ENDOMETRIAL ABLATION, COLONOSCOPY Past Anesthesia/Blood Transfusion Reactions: No Reported Reaction Past Psychological History: No Psychological Hx Reported Smoking Status: Never smoker Past Alcohol Use History: None Reported Past Drug Use History: None Reported - Past Family History Father Family Medical History: No Reported History Mother Family Medical History: Cancer Additional Family Medical History / Comment(s): COLON CANCER General Exam - General Exam Comments Initial Comments: General: Appears in mild distress secondary to abdominal discomfort. HEAD: Normal with no signs of head trauma. EYES: PERRLA, EOMI, conjunctiva normal, no discharge. ENT: Hearing grossly intact, normal oropharynx. RESPIRATORY: Clear breath sounds bilaterally. No wheezes, rales, or rhonchi. C/V: Regular rate and rhythm. S1 and S2 auscultated, no edema, peripheral pulses 2+ and intact throughout ABD: Abdomen soft, nondistended. Tender to palpation epigastric region. No guarding or rebound tenderness. No peritoneal signs. EXT: Normal range of motion, no obvious deformity SKIN: No rashes or lesions observed on exposed skin. NEURO: Alert and oriented x 4. Limitations: no limitations Course Vital Signs 11/08/23 11/08/23 11/08/23 08:06 09:53 11:59 Temperature 98.4 F 98.5 F 98.7 F Pulse Rate 88 80 81 Respiratory 16 16 16 Rate Blood Pressure 124/84 137/85 135/76 O2 Sat by Pulse 100 100 100 Oximetry Medical Decision Making - Medical Decision Making Was pt. sent in by a medical professional or institution (, PA, LEARNING SUPPORT ASSISTANT, urgent care, hospital, or senior care...) When possible be specific @ -No Did you speak to anyone other than the patient for history (EMS, parent, family, police, friend...)? What history was obtained from this source @ -No Did you review nursing and triage notes (agree or disagree)? Why? @ -I reviewed and agree with nursing and triage notes Were old charts reviewed (outside hosp., previous admission, EMS record, old EKG, old radiological studies, urgent care reports/EKG's, senior care records)? Report findings @ -Reviewed chart from September 2023 when patient presented for similar complaints. Workup relatively unremarkable at that time. Differential Diagnosis (chest pain, altered mental status, abdominal pain women, abdominal pain men, vaginal bleeding, weakness, fever, dyspnea, syncope, headache, dizziness, GI bleed, back pain, seizure, CVA, palpatations, mental health, musculoskeletal)? @ -Differential Abdominal Pain Women: Appendicitis, Cholecystitis, diverticulosis, ischemic bowel, pancreatitis, hepatitis, UTI, gastroenteritis, AAA, incarcerated hernia, bowel obstruction, constipation, inflammatory bowel, hepatitis, peptic ulcer disease, splenic infarction, perforated viscus, vulvitis, ovarian torsion, PID, kidney stone, placenta abruption, this is not meant to be an all-inclusive list EKG interpreted by me (3pts min.). @ -As above X-rays interpreted by me (1pt min.). @ -None done CT interpreted by me (1pt min.). @ -None done U/S interpreted by me (1pt. min.). @ -Ultrasound of the kidneys and bladder unremarkable. What testing was considered but not performed or refused? (CT, X-rays, U/S, labs)? Why? @ -Considered CT imaging but after discussion with the patient with normal labs and normal ultrasound, will defer at this time. Avoid excess radiation exposure. What meds were considered but not given or refused? Why? @ -None Did you discuss the management of the patient with other professionals (professionals i.e. , PA, LEARNING SUPPORT ASSISTANT, lab, RT, psych nurse, certified social workers in health care, real estate lawyer, teacher, weapons electrical engineering officer, immigration case manager)? Give summary @ -No Was smoking cessation discussed for >3mins.? @ -No Was critical care preformed (if so, how long)? @ -No Were there social determinants of health that impacted care today? How? (Homelessness, low income, unemployed, alcoholism, drug addiction, transportation, low edu. Level, literacy, decrease access to med. care, longterm, rehab)? @ -No Was there de-escalation of care discussed even if they declined (Discuss DNR or withdrawal of care, Hospice)? DNR status @ -No What co-morbidities impacted this encounter? (DM, HTN, Smoking, COPD, CAD, Cancer, CVA, ARF, Chemo, Hep., AIDS, mental health diagnosis, sleep apnea, morbid obesity)? @ -None Was patient admitted / discharged? Hospital course, mention meds given and route, prescriptions, significant lab abnormalities, going to OR and other pertinent info. @ -Patient presents for a reoccurrence of nausea, vomiting, abdominal pain. Has been ongoing for the last 3 days. We will obtain abdominal labs and workup including urine. Will defer imaging at this time until laboratory studies are returned. She was in agreement this plan. She will be symptomatically treat with IV fluids, Zofran, Protonix, Dilaudid. Patient was in agreement this plan. Screen EKG will also be obtained. Vital signs are currently within acceptable limits. Patient's laboratory studies returned remarkable for 10 RBCs in the urine. Remainder the workup unremarkable. On reevaluation, I discussed results with patient. She will be given additional analgesia medications and we will obtain ultrasound of the kidneys and bladder. She was in agreement this plan. Ultrasound unremarkable. She is feeling improved at this time. Patient be discharged home at this time. Strict return precautions discussed. Given a starter pack of Zofran and Tylenol 3 for home. I instructed the patient to follow up with their PCP in the next 1-3 days. I provided contact information for follow up with gastroenterology. I explained that the patient should return to the emergency department if they experience any worsening symptoms. Strict return precautions were discussed with the patient. The patient expressed understanding of these instructions. I answered all questions that the patient had. The patient was discharged home in good condition with their prescriptions and follow up information. Undiagnosed new problem with uncertain prognosis? @ -No Drug Therapy requiring intensive monitoring for toxicity (Heparin, Nitro, Insulin, Cardizem)? @ -No Were any procedures done? @ -No Diagnosis/symptom? @ -Chronic abdominal pain, abdominal pain of unknown etiology, nausea and vomiting Acute, or Chronic, or Acute on Chronic? @ -Acute on chronic Uncomplicated (without systemic symptoms) or Complicated (systemic symptoms)? @ -Uncomplicated Side effects of treatment? @ -None Exacerbation, Progression, or Severe Exacerbation] @ -No Poses a threat to life or bodily function? @ -Unlikely - Lab Data Result diagrams: 11/08/23 08:30 11/08/23 08:30 Lab Results 11/08/23 11/08/23 11/08/23 Range/Units 08:30 08:30 08:30 WBC 4.9 (3.8-10.6) k/uL RBC 3.61 L (3.80-5.40) m/uL Hgb 11.9 (11.4-16.0) gm/dL Hct 34.6 (34.0-46.0) % MCV 95.9 (80.0-100.0) fL MCH 32.9 (25.0-35.0) pg MCHC 34.3 (31.0-37.0) g/dL RDW 12.4 (11.5-15.5) % Plt Count 336 (150-450) k/uL MPV 7.2 Neutrophils % 61 % Lymphocytes % 25 % Monocytes % 8 % Eosinophils % 3 % Basophils % 1 % Neutrophils # 3.0 (1.3-7.7) k/uL Lymphocytes # 1.2 (1.0-4.8) k/uL Monocytes # 0.4 (0-1.0) k/uL Eosinophils # 0.1 (0-0.7) k/uL Basophils # 0.0 (0-0.2) k/uL PT 10.7 (10.0-12.5) sec INR 1.0 (<1.2) APTT 27.7 (22.0-30.0) sec Sodium (137-145) mmol/L Potassium (3.5-5.1) mmol/L Chloride (98-107) mmol/L Carbon Dioxide (22-30) mmol/L Anion Gap mmol/L BUN (7-17) mg/dL Creatinine (0.52-1.04) mg/dL Est GFR (CKD-EPI)AfAm (>60 ml/min/1.73 sqM) Est GFR (CKD-EPI)NonAf (>60 ml/min/1.73 sqM) Glucose (74-99) mg/dL Plasma Lactic Acid Kevin (0.7-2.0) mmol/L Calcium (8.4-10.2) mg/dL Total Bilirubin (0.2-1.3) mg/dL AST (14-36) U/L ALT (4-34) U/L Alkaline Phosphatase (38-126) U/L Total Protein (6.3-8.2) g/dL Albumin (3.5-5.0) g/dL Amylase (30-110) U/L Lipase (23-300) U/L Urine Color Light Yellow Urine Appearance Clear (Clear) Urine pH 7.0 (5.0-8.0) Ur Specific [place] 1.024 (1.001-1.035) Urine Protein Trace H (Negative) Urine Glucose (UA) Negative (Negative) Urine Ketones 2+ H (Negative) Urine Blood Small H (Negative) Urine Nitrite Negative (Negative) Urine Bilirubin Negative (Negative) Urine Urobilinogen <2.0 (<2.0) mg/dL Ur Leukocyte Esterase Negative (Negative) Urine RBC 10 H (0-5) /hpf Urine WBC 2 (0-5) /hpf Ur Squamous Epith Cells 3 (0-4) /hpf Urine Mucus Few H (None) /hpf Urine HCG, Qual (Not Detectd) 11/08/23 11/08/23 11/08/23 Range/Units 08:30 08:30 08:30 WBC (3.8-10.6) k/uL RBC (3.80-5.40) m/uL Hgb (11.4-16.0) gm/dL Hct (34.0-46.0) % MCV (80.0-100.0) fL MCH (25.0-35.0) pg MCHC (31.0-37.0) g/dL RDW (11.5-15.5) % Plt Count (150-450) k/uL MPV Neutrophils % % Lymphocytes % % Monocytes % % Eosinophils % % Basophils % % Neutrophils # (1.3-7.7) k/uL Lymphocytes # (1.0-4.8) k/uL Monocytes # (0-1.0) k/uL Eosinophils # (0-0.7) k/uL Basophils # (0-0.2) k/uL PT (10.0-12.5) sec INR (<1.2) APTT (22.0-30.0) sec Sodium 139 (137-145) mmol/L Potassium 4.0 (3.5-5.1) mmol/L Chloride 109 H (98-107) mmol/L Carbon Dioxide 25 (22-30) mmol/L Anion Gap 5 mmol/L BUN 10 (7-17) mg/dL Creatinine 0.59 (0.52-1.04) mg/dL Est GFR (CKD-EPI)AfAm >90 (>60 ml/min/1.73 sqM) Est GFR (CKD-EPI)NonAf >90 (>60 ml/min/1.73 sqM) Glucose 81 (74-99) mg/dL Plasma Lactic Acid Kevin 0.9 (0.7-2.0) mmol/L Calcium 9.1 (8.4-10.2) mg/dL Total Bilirubin 0.5 (0.2-1.3) mg/dL AST 28 (14-36) U/L ALT 22 (4-34) U/L Alkaline Phosphatase 65 (38-126) U/L Total Protein 6.9 (6.3-8.2) g/dL Albumin 4.3 (3.5-5.0) g/dL Amylase 68 (30-110) U/L Lipase 69 (23-300) U/L Urine Color Urine Appearance (Clear) Urine pH (5.0-8.0) Ur Specific [place] (1.001-1.035) Urine Protein (Negative) Urine Glucose (UA) (Negative) Urine Ketones (Negative) Urine Blood (Negative) Urine Nitrite (Negative) Urine Bilirubin (Negative) Urine Urobilinogen (<2.0) mg/dL Ur Leukocyte Esterase (Negative) Urine RBC (0-5) /hpf Urine WBC (0-5) /hpf Ur Squamous Epith Cells (0-4) /hpf Urine Mucus (None) /hpf Urine HCG, Qual Not Detected (Not Detectd) Disposition Clinical Impression: Chronic abdominal pain, Abdominal pain of unknown etiology, Nausea and vomiting Disposition: HOME SELF-CARE Condition: Good Instructions (If sedation given, give patient instructions): Acute Nausea and Vomiting (ED), Abdominal Pain (ED) Is patient prescribed a controlled substance at d/c from ED?: No Referrals: Armando Willams MD [Primary Care Provider] - 1-2 days Virgen Ramachandran MD [STAFF PHYSICIAN] - 1-2 days Time of Disposition: 11:40
[2023-11-08] MEDS: SODIUM CHLORIDE 0.9% 2,000 ML IV STA (08:57)
[2023-11-08] MEDS: ONDANSETRON 4 MG/2 ML VIAL IVP STA (08:58)
[2023-11-08] MEDS: PANTOPRAZOLE 40 MG/10 ML VIAL IVP STA (09:00)
[2023-11-08] MEDS: HYDROmorphone 0.5 MG/0.5 ML SYRINGE IVP STA ×2 (09:01→10:27)
[2023-11-08 09:06] LABS: Basophils % (A) 1 %; Eosinophils # (A) 0.1 k/uL (0-0.7); Eosinophils % (A) 3 %; HCT 34.6 % (34.0-46.0); HGB 11.9 gm/dL (11.4-16.0); Lymphocytes # (A) 1.2 k/uL (1.0-4.8); Lymphocytes % (A) 25 %; MCH 32.9 pg (25.0-35.0); MCHC 34.3 g/dL (31.0-37.0); MCV 95.9 fL (80.0-100.0); Mean Platelet Volume 7.2; Monocytes # (A) 0.4 k/uL (0-1.0); Monocytes % (A) 8 %; Neutrophils % (A) 61 %; Platelet Count 336 k/uL (150-450); RBC 3.61 m/uL (3.80-5.40); RDW 12.4 % (11.5-15.5); WBC 4.9 k/uL (3.8-10.6)
[2023-11-08 09:15] LABS: Partial Thromboplastin Time 27.7 sec (22.0-30.0); Prothrombin Time 10.7 sec (10.0-12.5)
[2023-11-08 09:46] LABS: ALT 22 U/L (4-34); AST 28 U/L (14-36); African American GFR (CKD) >90 (>60 ml/min/1.73 sqM); Albumin 4.3 g/dL (3.5-5.0); Alkaline Phosphatase 65 U/L (38-126); Amylase 68 U/L (30-110); Anion Gap 5 mmol/L; Blood Urea Nitrogen 10 mg/dL (7-17); Calcium 9.1 mg/dL (8.4-10.2); Carbon Dioxide 25 mmol/L (22-30); Chloride 109 mmol/L (98-107); Glucose 81 mg/dL (74-99); Lipase 69 U/L (23-300); Non-African American GFR(CKD) >90 (>60 ml/min/1.73 sqM); Sodium 139 mmol/L (137-145); Total Bilirubin 0.5 mg/dL (0.2-1.3); Total Protein 6.9 g/dL (6.3-8.2)
[2023-11-08 09:50] LABS: Appearance,Urine Clear (Clear); Bilirubin,Urine Negative (Negative); Blood,Urine Small (Negative); Color,Urine Light Yellow; Glucose,Urine (UA) Negative (Negative); Ketones,Urine 2+ (Negative); Leukocyte Esterase,Urine Negative (Negative); Mucus,Urine Few /hpf; Nitrite,Urine Negative (Negative); Protein,Urine Trace (Negative); RBC,Urine 10 /hpf (0-5); Specific Gravity,Urine 1.024 (1.001-1.035); Squamous Epithelial Cell,Urine 3 /hpf (0-4); Urobilinogen,Urine <2.0 mg/dL (<2.0); WBC,Urine 2 /hpf (0-5)
--- NOTE | 2023-11-08 10:51 | US ---
EXAMINATION TYPE: US renals and bladder DATE OF EXAM: 11/08/2023 COMPARISON: 09/06/2023 CLINICAL INDICATION: Female, 38 years old with history of right flank pain, eval for evidense of tommy l stone; Left side pain EXAM MEASUREMENTS: Right Kidney: 10.1 x 4.1 x 5.1 cm Left Kidney: 10.1 x 5.3 x 5.6 cm Right Kidney: No hydronephrosis or masses seen Left Kidney: No hydronephrosis or masses seen Bladder: distended, anechoic Bilateral Jets not seen There is no evidence for hydronephrosis at this point in time. No nephrolithiasis is seen. No parrish s are identified. The urinary bladder is anechoic. Bilateral ureteral jets are seen. IMPRESSION: No evidence for obstructive uropathy or renal calculus.
[2023-11-08] MEDS: ACET/COD 300 MG/30 MG STARTER PACK 6 TAB BTL PO STA (11:55)
[2023-11-08] MEDS: ONDANSETRON 4 MG ODT STARTER PACK 2 TAB BTL PO STA (11:55)
[2023-11-08 12:00] VITALS: BP 135/76; PULSE 81; TEMP 98.7
== END 2023-11-08 12:00 | disposition home or self-care (01) ==
LOC: EC 07:59
CPT/HCPCS: 36415; 76770; 80053; 81001; 81025; 82150; 83605; 83690; 85025; 85610; 85730; 93005; 96361; 96374; 96375; 96376; 99284

== ENCOUNTER 2023-11-28 17:39 | Emergency (ER) | payer OTHER ==
[2023-11-28 17:54] VITALS: TEMP 98.3
--- NOTE | 2023-11-28 18:14 | ED ---
Nausea/Vomiting/Diarrhea HPI - General Chief complaint: Nausea/Vomiting/Diarrhea Stated complaint: Vomiting Time Seen by Provider: 11/28/23 17:54 Source: patient, RN notes reviewed Mode of arrival: ambulatory Limitations: no limitations - History of Present Illness Initial comments: 38-year-old female presents emergency department chief complaint of nausea and vomiting over the past few days. Patient states that she has a complicated kidney history and follows with specialist at [facility] where she is being evaluated in the next upcoming weeks. Patient states that she is normally able to take Zofran and pain medication at home prescribed by a provider however these medications are not the pharmacy and prevents for further treatment. She denies hematemesis, coffee-ground emesis, diarrhea, constipation, fevers, chills, cough, rhinorrhea. Previous surgical abdominal history of cholecystectomy, appendectomy, and hysterectomy. - Related Data Home Medications Medication Instructions Recorded Confirmed Dicyclomine [Bentyl] 20 mg PO TID 05/12/23 09/06/23 Pantoprazole Sodium [Protonix] 40 mg PO BID 05/12/23 09/06/23 HYDROcodone/APAP 10-325MG [[place] 1 tab PO Q6H PRN 09/06/23 09/06/23 10-325] Omeprazole 40 mg PO BID 09/06/23 09/06/23 Previous Rx's Medication Instructions Recorded Doxycycline [Vibramycin] 100 mg PO BID #14 capsule 09/24/23 Ondansetron Odt [Zofran Odt] 4 mg PO Q8HR PRN #10 tab 09/24/23 metroNIDAZOLE [Flagyl] 500 mg PO ONCE #4 tab 09/24/23 Allergies Allergy/AdvReac Type Severity Reaction Status Date / Time metoclopramide [From Reglan] AdvReac Mild Rapid Verified 11/28/23 17:54 Heart Rate & Shortness of Breath prochlorperazine maleate AdvReac Rapid Verified 11/28/23 17:54 [From Compazine] Heart Rate & Shortness of Breath Review of Systems ROS Statement: Those systems with pertinent positive or pertinent negative responses have been documented in the HPI. ROS Other: All systems not noted in ROS Statement are negative. Past Medical History Past Medical History: Renal Disease Additional Past Medical History / Comment(s): COLITIS, uti's, kidney infections, interstitial cystitis, kidney stones, RECTAL BLEEDING, cronhs,. covid 02/01 History of Any Multi-Drug Resistant Organisms: None Reported Past Surgical History: Appendectomy, Cholecystectomy, Hysterectomy, Tubal Ligation Additional Past Surgical History / Comment(s): novasure ENDOMETRIAL ABLATION, COLONOSCOPY Past Anesthesia/Blood Transfusion Reactions: No Reported Reaction Past Psychological History: No Psychological Hx Reported Smoking Status: Never smoker Past Alcohol Use History: None Reported Past Drug Use History: None Reported - Past Family History Father Family Medical History: No Reported History Mother Family Medical History: Cancer Additional Family Medical History / Comment(s): COLON CANCER General Exam Limitations: no limitations General appearance: alert, in no apparent distress Head exam: Present: atraumatic, normocephalic, normal inspection Eye exam: Present: normal appearance, PERRL, EOMI. Absent: scleral icterus, conjunctival injection, periorbital swelling ENT exam: Present: normal exam, mucous membranes moist Neck exam: Present: normal inspection. Absent: tenderness, meningismus, lymphadenopathy Respiratory exam: Present: normal lung sounds bilaterally. Absent: respiratory distress, wheezes, rales, rhonchi, stridor Cardiovascular Exam: Present: regular rate, normal rhythm, normal heart sounds. Absent: systolic murmur, diastolic murmur, rubs, gallop, clicks GI/Abdominal exam: Present: soft, tenderness (epigastric), normal bowel sounds. Absent: distended, guarding, rebound, rigid Extremities exam: Present: normal inspection, full ROM, normal capillary refill. Absent: tenderness, pedal edema, joint swelling, calf tenderness Skin exam: Present: warm, dry, intact, normal color. Absent: rash Course Vital Signs 11/28/23 11/28/23 17:51 20:24 Temperature 98.3 F Pulse Rate 85 88 Respiratory 18 16 Rate Blood Pressure 157/96 91/55 O2 Sat by Pulse 100 99 Oximetry Medical Decision Making - Medical Decision Making Was pt. sent in by a medical professional or institution (, PA, DRY PAN FEEDER, urgent care, hospital, or group home...) When possible be specific @ -No Did you speak to anyone other than the patient for history (EMS, parent, family, police, friend...)? What history was obtained from this source @ -No Did you review nursing and triage notes (agree or disagree)? Why? @ -I reviewed and agree with nursing and triage notes Were old charts reviewed (outside hosp., previous admission, EMS record, old EKG, old radiological studies, urgent care reports/EKG's, group home records)? Report findings @ -Patient's previous emergency department visit note where she presented for n ausea vomiting discharged home in stable condition with abnormal laboratory studies Differential Diagnosis (chest pain, altered mental status, abdominal pain women, abdominal pain men, vaginal bleeding, weakness, fever, dyspnea, syncope, headache, dizziness, GI bleed, back pain, seizure, CVA, palpatations, mental health, musculoskeletal)? @ -Differential Abdominal Pain Women: Appendicitis, Cholecystitis, diverticulosis, ischemic bowel, pancreatitis, hepatitis, UTI, gastroenteritis, AAA, incarcerated hernia, bowel obstruction, constipation, inflammatory bowel, hepatitis, peptic ulcer disease, splenic infarction, perforated viscus, vulvitis, ovarian torsion, PID, kidney stone, placenta abruption, this is not meant to be an all-inclusive list EKG interpreted by me (3pts min.). @ -None X-rays interpreted by me (1pt min.). @ -None done CT interpreted by me (1pt min.). @ -None done U/S interpreted by me (1pt. min.). @ -None done What testing was considered but not performed or refused? (CT, X-rays, U/S, labs)? Why? @ -Imaging of the abdomen was considered but deferred at this time. Patient's laboratory studies including CBC, CMP, urinalysis and pancreatic enzymes within normal limits. Additionally patient's abdominal pain has greatly improved since being the emergency department she has not experienced any episodes of emesis. Patient is agree with deferring CT imaging at this time. What meds were considered but not given or refused? Why? @ -None Did you discuss the management of the patient with other professionals (professionals i.e. Dr., PA, DRY PAN FEEDER, lab, RT, psych nurse, social media director, pupil personnel services director, teacher, building drafting officer, lining caser)? Give summary @ -No Was smoking cessation discussed for >3mins.? @ -No Was critical care preformed (if so, how long)? @ -No Were there social determinants of health that impacted care today? How? (Homelessness, low income, unemployed, alcoholism, drug addiction, transportation, low edu. Level, literacy, decrease access to med. care, intermediate, re hab)? @ -No Was there de-escalation of care discussed even if they declined (Discuss DNR or withdrawal of care, Hospice)? DNR status @ -No What co-morbidities impacted this encounter? (DM, HTN, Smoking, COPD, CAD, Cancer, CVA, ARF, Chemo, Hep., AIDS, mental health diagnosis, sleep apnea, morbid obesity)? @ -None Was patient admitted / discharged? Hospital course, mention meds given and route, prescriptions, significant lab abnormalities, going to OR and other pertinent info. @ -Discharge. 38-year-old female with nausea and vomiting. Patient's vitals are stable. Examination reveals mild epigastric abdominal tenderness. Patient is symptomatic treated with fluids, Zofran, pain medications. CBC and CMP unremarkable, urinalysis no signs of infection, amylase and lipase within normal limits. Patient has had no episodes of emesis while in the emergency department and abdominal pain has greatly improved after being provided with medications. She states that she feels comfortable for discharge. All questions answered at bedside and strict return prior discussed with the patient she is verbalized understanding. Case discussed with Dr. Markham Undiagnosed new problem with uncertain prognosis? @ -No Drug Therapy requiring intensive monitoring for toxicity (Heparin, Nitro, Insulin, Cardizem)? @ -No Were any procedures done? @ -No Diagnosis/symptom? @ -nausea and vomiting Acute, or Chronic, or Acute on Chronic? @ -Acute Uncomplicated (without systemic symptoms) or Complicated (systemic symptoms)? @ -uncomplicated Side effects of treatment? @ -No Exacerbation, Progression, or Severe Exacerbation? @ -No Poses a threat to life or bodily function? How? (Chest pain, [place], [place], pneumonia, PE, COPD, DKA, ARF, appy, cholecystitis, CVA, Diverticulitis, Homicidal, Suicidal, threat to staff... and all critical care pts) @ -No - Lab Data Result diagrams: 11/28/23 18:26 11/28/23 18:26 Lab Results 11/28/23 11/28/23 11/28/23 Range/Units 18:26 18:26 18:26 WBC 9.1 (3.8-10.6) k/uL RBC 3.83 (3.80-5.40) m/uL Hgb 12.5 (11.4-16.0) gm/dL Hct 37.5 (34.0-46.0) % MCV 98.0 (80.0-100.0) fL MCH 32.6 (25.0-35.0) pg MCHC 33.2 (31.0-37.0) g/dL RDW 11.9 (11.5-15.5) % Plt Count 352 (150-450) k/uL MPV 6.9 Neutrophils % 52 % Lymphocytes % 36 % Monocytes % 6 % Eosinophils % 3 % Basophils % 1 % Neutrophils # 4.7 (1.3-7.7) k/uL Lymphocytes # 3.3 (1.0-4.8) k/uL Monocytes # 0.5 (0-1.0) k/uL Eosinophils # 0.2 (0-0.7) k/uL Basophils # 0.1 (0-0.2) k/uL Sodium (137-145) mmol/L Potassium (3.5-5.1) mmol/L Chloride (98-107) mmol/L Carbon Dioxide (22-30) mmol/L Anion Gap mmol/L BUN (7-17) mg/dL Creatinine (0.52-1.04) mg/dL Est GFR (CKD-EPI)AfAm (>60 ml/min/1.73 sqM) Est GFR (CKD-EPI)NonAf (>60 ml/min/1.73 sqM) Glucose (74-99) mg/dL Calcium (8.4-10.2) mg/dL Magnesium (1.6-2.3) mg/dL Total Bilirubin (0.2-1.3) mg/dL AST (14-36) U/L ALT (4-34) U/L Alkaline Phosphatase (38-126) U/L Total Protein (6.3-8.2) g/dL Albumin (3.5-5.0) g/dL Urine Color Yellow Urine Appearance Cloudy H (Clear) Urine pH 6.0 (5.0-8.0) Ur Specific [place] 1.031 (1.001-1.035) Urine Protein Trace H (Negative) Urine Glucose (UA) Negative (Negative) Urine Ketones Negative (Negative) Urine Blood Moderate H (Negative) Urine Nitrite Negative (Negative) Urine Bilirubin Negative (Negative) Urine Urobilinogen <2.0 (<2.0) mg/dL Ur Leukocyte Esterase Negative (Negative) Urine RBC 9 H (0-5) /hpf Urine WBC 5 (0-5) /hpf Ur Squamous Epith Cells 2 (0-4) /hpf Urine Mucus Many H (None) /hpf Urine HCG, Qual Not Detected (Not Detectd) Influenza Type A (PCR) (Not Detectd) Influenza Type B (PCR) (Not Detectd) RSV (PCR) (Not Detectd) SARS-CoV-2 (PCR) (Not Detectd) 11/28/23 11/28/23 Range/Units 18:26 18:26 WBC (3.8-10.6) k/uL RBC (3.80-5.40) m/uL Hgb (11.4-16.0) gm/dL Hct (34.0-46.0) % MCV (80.0-100.0) fL MCH (25.0-35.0) pg MCHC (31.0-37.0) g/dL RDW (11.5-15.5) % Plt Count (150-450) k/uL MPV Neutrophils % % Lymphocytes % % Monocytes % % Eosinophils % % Basophils % % Neutrophils # (1.3-7.7) k/uL Lymphocytes # (1.0-4.8) k/uL Monocytes # (0-1.0) k/uL Eosinophils # (0-0.7) k/uL Basophils # (0-0.2) k/uL Sodium 140 (137-145) mmol/L Potassium 3.6 (3.5-5.1) mmol/L Chloride 104 (98-107) mmol/L Carbon Dioxide 27 (22-30) mmol/L Anion Gap 9 mmol/L BUN 12 (7-17) mg/dL Creatinine 0.70 (0.52-1.04) mg/dL Est GFR (CKD-EPI)AfAm >90 (>60 ml/min/1.73 sqM) Est GFR (CKD-EPI)NonAf >90 (>60 ml/min/1.73 sqM) Glucose 84 (74-99) mg/dL Calcium 9.5 (8.4-10.2) mg/dL Magnesium 2.0 (1.6-2.3) mg/dL Total Bilirubin 0.5 (0.2-1.3) mg/dL AST 20 (14-36) U/L ALT 12 (4-34) U/L Alkaline Phosphatase 64 (38-126) U/L Total Protein 7.5 (6.3-8.2) g/dL Albumin 4.8 (3.5-5.0) g/dL Urine Color Urine Appearance (Clear) Urine pH (5.0-8.0) Ur Specific [place] (1.001-1.035) Urine Protein (Negative) Urine Glucose (UA) (Negative) Urine Ketones (Negative) Urine Blood (Negative) Urine Nitrite (Negative) Urine Bilirubin (Negative) Urine Urobilinogen (<2.0) mg/dL Ur Leukocyte Esterase (Negative) Urine RBC (0-5) /hpf Urine WBC (0-5) /hpf Ur Squamous Epith Cells (0-4) /hpf Urine Mucus (None) /hpf Urine HCG, Qual (Not Detectd) Influenza Type A (PCR) Not Detected (Not Detectd) Influenza Type B (PCR) Not Detected (Not Detectd) RSV (PCR) Not Detected (Not Detectd) SARS-CoV-2 (PCR) Not Detected (Not Detectd) Disposition Clinical Impression: Nausea and vomiting, Abdominal pain Disposition: HOME SELF-CARE Condition: Good Instructions (If sedation given, give patient instructions): Acute Nausea and Vomiting (ED) Additional Instructions: Return to the emergency department for any new or worsening symptoms. Recommend you take pain medication as needed. Follow-up with your primary care provider for further evaluation. Is patient prescribed a controlled substance at d/c from ED?: No Referrals: Armando Willams MD [Primary Care Provider] - 1-2 days Time of Disposition: 20:08
[2023-11-28] MEDS: ONDANSETRON 4 MG/2 ML VIAL IVP STA (18:33)
[2023-11-28] MEDS: HYDROmorphone 0.5 MG/0.5 ML SYRINGE IVP STA (18:33)
[2023-11-28] MEDS: SODIUM CHLORIDE 0.9% 2,000 ML IV STA (18:33)
[2023-11-28] MEDS: PANTOPRAZOLE 40 MG/10 ML VIAL IVP STA (18:34)
[2023-11-28 18:37] LABS: Basophils # (A) 0.1 k/uL (0-0.2); Basophils % (A) 1 %; Eosinophils # (A) 0.2 k/uL (0-0.7); Eosinophils % (A) 3 %; HCT 37.5 % (34.0-46.0); HGB 12.5 gm/dL (11.4-16.0); Lymphocytes # (A) 3.3 k/uL (1.0-4.8); Lymphocytes % (A) 36 %; MCH 32.6 pg (25.0-35.0); MCHC 33.2 g/dL (31.0-37.0); Mean Platelet Volume 6.9; Monocytes # (A) 0.5 k/uL (0-1.0); Monocytes % (A) 6 %; Neutrophils # (A) 4.7 k/uL (1.3-7.7); Neutrophils % (A) 52 %; Platelet Count 352 k/uL (150-450); RBC 3.83 m/uL (3.80-5.40); RDW 11.9 % (11.5-15.5); WBC 9.1 k/uL (3.8-10.6)
[2023-11-28 18:42] LABS: Appearance,Urine Cloudy (Clear); Bilirubin,Urine Negative (Negative); Blood,Urine Moderate (Negative); Color,Urine Yellow; Glucose,Urine (UA) Negative (Negative); Ketones,Urine Negative (Negative); Leukocyte Esterase,Urine Negative (Negative); Mucus,Urine Many /hpf; Nitrite,Urine Negative (Negative); Protein,Urine Trace (Negative); RBC,Urine 9 /hpf (0-5); Specific Gravity,Urine 1.031 (1.001-1.035); Squamous Epithelial Cell,Urine 2 /hpf (0-4); Urobilinogen,Urine <2.0 mg/dL (<2.0); WBC,Urine 5 /hpf (0-5)
[2023-11-28 18:46] LABS: ALT 12 U/L (4-34); AST 20 U/L (14-36); African American GFR (CKD) >90 (>60 ml/min/1.73 sqM); Albumin 4.8 g/dL (3.5-5.0); Alkaline Phosphatase 64 U/L (38-126); Anion Gap 9 mmol/L; Blood Urea Nitrogen 12 mg/dL (7-17); Calcium 9.5 mg/dL (8.4-10.2); Carbon Dioxide 27 mmol/L (22-30); Chloride 104 mmol/L (98-107); Glucose 84 mg/dL (74-99); Non-African American GFR(CKD) >90 (>60 ml/min/1.73 sqM); Potassium 3.6 mmol/L (3.5-5.1); Sodium 140 mmol/L (137-145); Total Bilirubin 0.5 mg/dL (0.2-1.3); Total Protein 7.5 g/dL (6.3-8.2)
[2023-11-28] MEDS: HYDROmorphone 1 MG/ML 1 ML SYRINGE IVP STA (19:28)
[2023-11-28 20:25] VITALS: BP 91/55; PULSE 88; RESP 16
[2023-11-28] MEDS: ACET/COD 300 MG/30 MG STARTER PACK 6 TAB BTL PO STA (20:25)
== END 2023-11-28 20:30 | disposition home or self-care (01) ==
LOC: EC 17:39
DX: R11.10 Vomiting, unspecified
CPT/HCPCS: 36415; 80053; 81001; 81025; 83735; 85025; 87636; 96361; 96374; 96376; 99284

== ENCOUNTER 2023-11-29 18:12 | Observation (INO) | payer OTHER ==
--- NOTE | 2023-11-29 19:29 | ED ---
Female Urogenital HPI - General Source: patient, RN notes reviewed Mode of arrival: ambulatory Limitations: no limitations <Katie Loco - Last Filed: 11/29/23 22:20> <Elias Lino - Last Filed: 12/06/23 08:52> - General Chief complaint: Urogenital Stated complaint: VOMITING Time Seen by Provider: 11/29/23 19:27 - History of Present Illness Initial comments: 38-year-old female with history of kidney stones presenting with left flank pain x 2 days with nausea/vomiting. Patient was seen in ER yesterday, workup was performed and patient was discharged. She states she woke up this morning and symptoms have been worsening. Describes a dull pain in the left flank radiating to the left lower abdomen. She also admits dysuria. States this feels similar to previous kidney stones. Denies fever or chills. She has a long history of kidney issues and has appointment with [facility] in 2 days. Past [facility]ano rgical history includes appendectomy, cholecystectomy, and hysterectomy. (Katie Loco) - Related Data Home Medications Medication Instructions Recorded Confirmed HYDROcodone/APAP 7.5-325MG [[place] 1 tab PO Q6H PRN 11/30/23 11/30/23 7.5-325] Losartan [Cozaar] 12.5 mg PO DAILY 11/30/23 11/30/23 Previous Rx's Medication Instructions Recorded Ondansetron Odt [Zofran Odt] 4 mg PO Q8HR PRN #10 tab 09/24/23 Allergies Allergy/AdvReac Type Severity Reaction Status Date / Time metoclopramide [From Reglan] AdvReac Mild Rapid Verified 11/29/23 18:19 Heart Rate & Shortness of Breath prochlorperazine maleate AdvReac Rapid Verified 11/29/23 18:19 [From Compazine] Heart Rate & Shortness of Breath Review of Systems ROS Other: All systems not noted in ROS Statement are negative. <Katie Loco - Last Filed: 11/29/23 22:20> ROS Other: All systems not noted in ROS Statement are negative. <Elias Lino - Last Filed: 12/06/23 08:52> ROS Statement: Those systems with pertinent positive or pertinent negative responses have been documented in the HPI. Past Medical History Past Medical History: Renal Disease Additional Past Medical History / Comment(s): COLITIS, uti's, kidney infections, interstitial cystitis, kidney stones, RECTAL BLEEDING, cronhs,. covid 02/01 History of Any Multi-Drug Resistant Organisms: None Reported Past Surgical History: Appendectomy, Cholecystectomy, Hysterectomy, Tubal Ligation Additional Past Surgical History / Comment(s): novasure ENDOMETRIAL ABLATION, COLONOSCOPY Past Anesthesia/Blood Transfusion Reactions: No Reported Reaction Past Psychological History: No Psychological Hx Reported Smoking Status: Never smoker Past Alcohol Use History: None Reported Past Drug Use History: None Reported - Past Family History Father Family Medical History: No Reported History Mother Family Medical History: Cancer Additional Family Medical History / Comment(s): COLON CANCER <Katie Loco - Last Filed: 11/29/23 22:20> General Exam Limitations: no limitations General appearance: alert, in no apparent distress Head exam: Present: atraumatic, normocephalic, normal inspection Respiratory exam: Present: normal lung sounds bilaterally. Absent: respiratory distress, wheezes, rales, rhonchi, stridor Cardiovascular Exam: Present: regular rate, normal rhythm, normal heart sounds. Absent: systolic murmur, diastolic murmur, rubs, gallop, clicks GI/Abdominal exam: Present: soft, normal bowel sounds. Absent: distended, tenderness, guarding, rebound, rigid Back exam: Present: CVA tenderness (L). Absent: CVA tenderness (R), rash noted Neurological exam: Present: alert, oriented X3 Psychiatric exam: Present: normal affect, normal mood Skin exam: Present: warm, dry, intact, normal color. Absent: rash <Katie Loco - Last Filed: 11/29/23 22:20> Course Vital Signs 11/29/23 11/29/23 11/29/23 18:16 22:33 23:30 Temperature 98.5 F Pulse Rate 72 70 80 Respiratory 18 18 16 Rate Blood Pressure 121/81 115/82 137/77 O2 Sat by Pulse 100 100 98 Oximetry 11/30/23 11/30/23 11/30/23 04:45 06:00 10:31 Temperature Pulse Rate 57 L 60 71 Respiratory 16 16 18 Rate Blood Pressure 101/59 110/69 129/78 O2 Sat by Pulse 100 98 100 Oximetry 11/30/23 15:13 Temperature Pulse Rate 88 Respiratory 16 Rate Blood Pressure 107/75 O2 Sat by Pulse 100 Oximetry Medical Decision Making - Lab Data Result diagrams: 11/29/23 19:48 11/29/23 19:48 <Katie Loco - Last Filed: 11/29/23 22:20> - Lab Data Result diagrams: 11/29/23 19:48 11/29/23 19:48 <Elias Lino - Last Filed: 12/06/23 08:52> - Medical Decision Making Was pt. sent in by a medical professional or institution (, PA, POLL CLERK, urgent care, hospital, or alf...) When possible be specific @ -No Did you speak to anyone other than the patient for history (EMS, parent, family, police, friend...)? What history was obtained from this source @ -No Did you review nursing and triage notes (agree or disagree)? Why? @ -I reviewed and agree with nursing and triage notes Were old charts reviewed (outside hosp., previous admission, EMS record, old EKG, old radiological studies, urgent care reports/EKG's, alf records)? Report findings @ -ER visit from yesterday reviewed including lab work and urinalysis Differential Diagnosis (chest pain, altered mental status, abdominal pain women, abdominal pain men, vaginal bleeding, weakness, fever, dyspnea, syncope, headache, dizziness, GI bleed, back pain, seizure, CVA, palpatations, mental health, musculoskeletal)? @ -Differential Abdominal Pain Women: Appendicitis, Cholecystitis, diverticulosis, ischemic bowel, pancreatitis, hepatitis, UTI, gastroenteritis, AAA, incarcerated hernia, bowel obstruction, constipation, inflammatory bowel, hepatitis, peptic ulcer disease, splenic infarction, perforated viscus, vulvitis, ovarian torsion, PID, kidney stone, placenta abruption, this is not meant to be an all-inclusive list EKG interpreted by me (3pts min.). @ -None X-rays interpreted by me (1pt min.). @ -None done CT interpreted by me (1pt min.). @ -CT revealed no suspicious abnormality to account for left flank pain U/S interpreted by me (1pt. min.). @ -None done What testing was considered but not performed or refused? (CT, X-rays, U/S, labs)? Why? @ -None What meds were considered but not given or refused? Why? @ -None Did you discuss the management of the patient with other professionals (professionals i.e. , PA, POLL CLERK, lab, RT, psych nurse, social psychologist, software publisher, teacher, community cultural development officer, family caseworker)? Give summary @ -I spoke with Dr. Willams who accepts admission at this time for left pyelonephritis Was smoking cessation discussed for >3mins.? @ -No Was critical care preformed (if so, how long)? @ -No Were there social determinants of health that impacted care today? How? (Homelessness, low income, unemployed, alcoholism, drug addiction, transportation, low edu. Level, literacy, decrease access to med. care, senior care, rehab)? @ -No Was there de-escalation of care discussed even if they declined (Discuss DNR or withdrawal of care, Hospice)? DNR status @ -No What co-morbidities impacted this encounter? (DM, HTN, Smoking, COPD, CAD, Cancer, CVA, ARF, Chemo, Hep., AIDS, mental health diagnosis, sleep apnea, morbid obesity)? @ -None Was patient admitted / discharged? Hospital course, mention meds given and route, prescriptions, significant lab abnormalities, going to OR and other pertinent info. @ -Patient was admitted. This is a 38-year-old female presenting with left flank pain x 2 days with vomiting. Vital signs within normal limits, patient is afebrile and nontachycardic. There is left CVA tenderness upon examination, abdomen is soft and nontender. Patient was provided with IV fluids, Toradol, and Zofran. Laboratory studies including CBC, CMP, lactic acid unremarkable. White blood cell count is within normal limits. Urinalysis reveals 20 white blood cells and small blood. CT abdomen/pelvis negative for acute abnormality. Findings discussed with patient. Pain continues to be uncontrolled. I spoke with Dr. Willams who accepts admission at this time for left pyelonephritis. Blood cultures were taken at this time. Patient was started on 1 g Rocephin and IV fluids. Case discussed with my ED attending Dr. Lino. Undiagnosed new problem with uncertain prognosis? @ -No Drug Therapy requiring intensive monitoring for toxicity (Heparin, Nitro, Insulin, Cardizem)? @ -No Were any procedures done? @ -No Diagnosis/symptom? @ -Left pyelonephritis Acute, or Chronic, or Acute on Chronic? @ -Acute Uncomplicated (without systemic symptoms) or Complicated (systemic symptoms)? @ -Complicated Side effects of treatment? @ -No Exacerbation, Progression, or Severe Exacerbation? @ -No Poses a threat to life or bodily function? How? (Chest pain, [place], [place], pneumonia, PE, COPD, DKA, ARF, appy, cholecystitis, CVA, Diverticulitis, Homicidal, Suicidal, threat to staff... and all critical care pts) @ -Yes (Katie Loco) - Lab Data Lab Results 11/29/23 11/29/23 11/29/23 Range/Units 19:48 19:48 19:48 WBC 8.8 (3.8-10.6) k/uL RBC 3.82 (3.80-5.40) m/uL Hgb 12.1 (11.4-16.0) gm/dL Hct 37.3 (34.0-46.0) % MCV 97.6 (80.0-100.0) fL MCH 31.6 (25.0-35.0) pg MCHC 32.4 (31.0-37.0) g/dL RDW 11.8 (11.5-15.5) % Plt Count 337 (150-450) k/uL MPV 7.0 Neutrophils % 54 % Lymphocytes % 37 % Monocytes % 4 % Eosinophils % 3 % Basophils % 1 % Neutrophils # 4.8 (1.3-7.7) k/uL Lymphocytes # 3.3 (1.0-4.8) k/uL Monocytes # 0.3 (0-1.0) k/uL Eosinophils # 0.3 (0-0.7) k/uL Basophils # 0.1 (0-0.2) k/uL Sodium 140 (137-145) mmol/L Potassium 3.6 (3.5-5.1) mmol/L Chloride 108 H (98-107) mmol/L Carbon Dioxide 25 (22-30) mmol/L Anion Gap 7 mmol/L BUN 8 (7-17) mg/dL Creatinine 0.69 (0.52-1.04) mg/dL Est GFR (CKD-EPI)AfAm >90 (>60 ml/min/1.73 sqM) Est GFR (CKD-EPI)NonAf >90 (>60 ml/min/1.73 sqM) Glucose 77 (74-99) mg/dL Plasma Lactic Acid Kevin (0.7-2.0) mmol/L Calcium 9.1 (8.4-10.2) mg/dL Urine Color Light Yellow Urine Appearance Clear (Clear) Urine pH 6.0 (5.0-8.0) Ur Specific [place] 1.018 (1.001-1.035) Urine Protein Negative (Negative) Urine Glucose (UA) Negative (Negative) Urine Ketones Negative (Negative) Urine Blood Small H (Negative) Urine Nitrite Negative (Negative) Urine Bilirubin Negative (Negative) Urine Urobilinogen <2.0 (<2.0) mg/dL Ur Leukocyte Esterase Small H (Negative) Urine RBC 2 (0-5) /hpf Urine WBC 12 H (0-5) /hpf Ur Squamous Epith Cells 2 (0-4) /hpf Urine Bacteria Many H (None) /hpf Urine Mucus Rare H (None) /hpf 11/29/23 Range/Units 19:48 WBC (3.8-10.6) k/uL RBC (3.80-5.40) m/uL Hgb (11.4-16.0) gm/dL Hct (34.0-46.0) % MCV (80.0-100.0) fL MCH (25.0-35.0) pg MCHC (31.0-37.0) g/dL RDW (11.5-15.5) % Plt Count (150-450) k/uL MPV Neutrophils % % Lymphocytes % % Monocytes % % Eosinophils % % Basophils % % Neutrophils # (1.3-7.7) k/uL Lymphocytes # (1.0-4.8) k/uL Monocytes # (0-1.0) k/uL Eosinophils # (0-0.7) k/uL Basophils # (0-0.2) k/uL Sodium (137-145) mmol/L Potassium (3.5-5.1) mmol/L Chloride (98-107) mmol/L Carbon Dioxide (22-30) mmol/L Anion Gap mmol/L BUN (7-17) mg/dL Creatinine (0.52-1.04) mg/dL Est GFR (CKD-EPI)AfAm (>60 ml/min/1.73 sqM) Est GFR (CKD-EPI)NonAf (>60 ml/min/1.73 sqM) Glucose (74-99) mg/dL Plasma Lactic Acid Kevin 0.7 (0.7-2.0) mmol/L Calcium (8.4-10.2) mg/dL Urine Color Urine Appearance (Clear) Urine pH (5.0-8.0) Ur Specific [place] (1.001-1.035) Urine Protein (Negative) Urine Glucose (UA) (Negative) Urine Ketones (Negative) Urine Blood (Negative) Urine Nitrite (Negative) Urine Bilirubin (Negative) Urine Urobilinogen (<2.0) mg/dL Ur Leukocyte Esterase (Negative) Urine RBC (0-5) /hpf Urine WBC (0-5) /hpf Ur Squamous Epith Cells (0-4) /hpf Urine Bacteria (None) /hpf Urine Mucus (None) /hpf Disposition Time of Disposition: 22:20 <Katie Loco - Last Filed: 11/29/23 22:20> <Elias Lino - Last Filed: 12/06/23 08:52> Clinical Impression: Pyelonephritis of left kidney Disposition: ADMITTED IP TO THIS HOSP Condition: Stable
[2023-11-29] MEDS: SODIUM CHLORIDE 0.9% 1,000 ML IV STA (19:44)
[2023-11-29] MEDS: ONDANSETRON 4 MG/2 ML VIAL IVP STA (19:45)
[2023-11-29] MEDS: KETOROLAC 15 MG/ML 1 ML VIAL IVP STA (19:45)
[2023-11-29 20:02] LABS: Basophils # (A) 0.1 k/uL (0-0.2); Basophils % (A) 1 %; Eosinophils # (A) 0.3 k/uL (0-0.7); Eosinophils % (A) 3 %; HCT 37.3 % (34.0-46.0); HGB 12.1 gm/dL (11.4-16.0); Lymphocytes # (A) 3.3 k/uL (1.0-4.8); Lymphocytes % (A) 37 %; MCH 31.6 pg (25.0-35.0); MCHC 32.4 g/dL (31.0-37.0); MCV 97.6 fL (80.0-100.0); Monocytes # (A) 0.3 k/uL (0-1.0); Monocytes % (A) 4 %; Neutrophils # (A) 4.8 k/uL (1.3-7.7); Neutrophils % (A) 54 %; Platelet Count 337 k/uL (150-450); RBC 3.82 m/uL (3.80-5.40); RDW 11.8 % (11.5-15.5); WBC 8.8 k/uL (3.8-10.6)
[2023-11-29 20:12] LABS: African American GFR (CKD) >90 (>60 ml/min/1.73 sqM); Anion Gap 7 mmol/L; Blood Urea Nitrogen 8 mg/dL (7-17); Calcium 9.1 mg/dL (8.4-10.2); Carbon Dioxide 25 mmol/L (22-30); Chloride 108 mmol/L (98-107); Glucose 77 mg/dL (74-99); Non-African American GFR(CKD) >90 (>60 ml/min/1.73 sqM); Potassium 3.6 mmol/L (3.5-5.1); Sodium 140 mmol/L (137-145)
[2023-11-29 20:13] LABS: Appearance,Urine Clear (Clear); Bacteria,Urine Many /hpf; Bilirubin,Urine Negative (Negative); Blood,Urine Small (Negative); Color,Urine Light Yellow; Glucose,Urine (UA) Negative (Negative); Ketones,Urine Negative (Negative); Leukocyte Esterase,Urine Small (Negative); Mucus,Urine Rare /hpf; Nitrite,Urine Negative (Negative); Protein,Urine Negative (Negative); RBC,Urine 2 /hpf (0-5); Specific Gravity,Urine 1.018 (1.001-1.035); Squamous Epithelial Cell,Urine 2 /hpf (0-4); Urobilinogen,Urine <2.0 mg/dL (<2.0); WBC,Urine 12 /hpf (0-5)
--- NOTE | 2023-11-29 20:29 | CT ---
EXAMINATION TYPE: CT abdomen pelvis wo con DATE OF EXAM: 11/29/2023 COMPARISON: 09/06/2023 INDICATION: Left flank pain. Priors in PACS DLP: 445.5 mGycm, Automated exposure control for dose reduction was used. CONTRAST: 0 mL of Isovue 300. Study performed without Oral Contrast TECHNIQUE: Axial images were obtained from above the diaphragm to the pubic rami in the axial plane a t 5 mm thick sections. Reconstructed images are reviewed on the computer in the coronal plane. FINDINGS: Limited CT sections are obtained the lung bases. The lung bases are clear. CT ABDOMEN: Liver: Normal Spleen: Normal Pancreas: Normal Adrenal glands: The adrenal glands are normal. Gallbladder: Normal Kidneys: No masses are evident. No hydronephrosis is present. No cysts are present. No renal stone s are evident. No hydronephrosis or hydroureter evident. Aorta: Normal Inferior vena cava: Normal. CT PELVIS: Loops of bowel within the abdomen and pelvis are normal. This study is without oral contrast limi ting follow-up evaluation. Appendix: Normal as visualized. Urinary bladder: Normal. Genitourinary structures: Uterus is not clearly identified. There appears to be therapeutic the vagi nal cuff region. Osseous structures: No suspicious lytic or sclerotic lesions. IMPRESSION: 1. No suspicious abnormality to account for left flank pain X-Ray Diana Chang, , 11/29/2023 8:27 PM
[2023-11-29] MEDS ORDERED: NALOXONE 0.4 MG/ML 1 ML VIAL IV PRN (21:55)
[2023-11-29] MEDS ORDERED: ACETAMINOPHEN TAB 325 MG TAB PO PRN (21:55)
[2023-11-29] MEDS: MORPHINE SULFATE 4 MG/ML SYRINGE IV PRN (22:21)
[2023-11-29] MEDS: SODIUM CHLORIDE 0.9% 1,000 ML IV SCH (22:23)
[2023-11-30] MEDS: HYDROcodone/APAP 5-325MG 1 EACH TAB PO PRN (01:15)
[2023-11-30] MEDS: ONDANSETRON 4 MG/2 ML VIAL IVP PRN (01:17)
[2023-11-30 15:14] VITALS: RESP 16
[2023-11-30] MEDS: KETOROLAC 15 MG/ML 1 ML VIAL IVP SCH (15:14)
[2023-11-30] MEDS: methylPREDNISolone SOD SUCCIN 250 MG in SODIUM CHLORIDE 0.9% 100 ML IVPB STA (15:15)
[2023-11-30] MEDS: tiZANidine 4 MG TAB PO SCH (15:15)
--- NOTE | 2023-11-30 16:14 | US ---
EXAMINATION TYPE: US pelvic complete DATE OF EXAM: 11/30/2023 COMPARISON: CLINICAL INDICATION: Female, 38 years old with history of abdominal pain; Uterus removed x 2016. Lef t side pain. Hematuria. TECHNIQUE: Transabdominal (TA). Transabdominal sonographic images of the pelvis were acquired Date of LMP: Unknown EXAM MEASUREMENTS: Right Ovary: 2.1 x 1.5 x 1.5 cm Left Ovary: 2.7 x 1.8 x 1.9 c 1. Uterus: Surgically absent 2. Endometrium: Surgically absent 3. Right Ovary: wnl 4. Left Ovary: wnl 5. Bilateral Adnexa: No free fluid 6. Posterior cul-de-sac: No free flui IMPRESSION: No evidence for acute process. [facility] Antonio Chang, Workstation: [id number], 11/30/2023 4:11 PM
[2023-11-30 21:40] VITALS: BP 112/72; PULSE 67; TEMP 98.6
--- NOTE | 2023-12-01 02:16 | HP ---
HISTORY AND PHYSICAL HISTORY OF PRESENT ILLNESS: A 38-year-old female was admitted to the hospital with acute on chronic abdominal pain with some vomiting and severe left flank pain. She was sitting at a baseball game all day on a cushion with no back support. She is [place] to [place] a thoracic nerve ablation to the kidneys to take her pain away. UA looks not severe, but could be a UTI. She has a history of pyelonephritis. CAT scan of abdomen and pelvis did not show anything. She has no pelvic pain. I suspect on physical exam she has a thoracic neuritis. You can palpate it all the way around to her left flank, so I am going to switch her to IV Solu-Medrol, give her Toradol and discharge her home tonight. Continue IV antibiotics for now due to the septic workup and we will send her home tonight. Follow up with [facility] for a thoracic injection tomorrow, which I think is the cause of her flank pain triggered from lying awkwardly at the baseball game. REVIEW OF SYSTEMS: A 14-point review of systems otherwise negative. OBJECTIVE: VITAL SIGNS: Pulse is 57 to 71, respiratory rate 16 to 18, blood pressure is 115 to 130s over 60s to 80s; O2 is 100% on room air. CARDIOVASCULAR: S1, S2. LUNGS: Transmitted upper sounds. PSYCH: Anxious, nervous. GI: Only tender in the left lateral quadrant. MUSCULOSKELETAL: She is tender on the lower thoracic spine. You can follow the tenderness right around her back to the left flank. GI: She has increased bowel sounds. Soft, nontender. NEUROLOGIC: Cranial nerves intact. PELVIC: No tenderness in lower abdomen. No guarding. CAT scan of the abdomen and pelvis was negative. We will check pelvic ultrasound and switch the Solu-Medrol to Toradol and possible discharge home tonight on medicines until she gets her thoracic neuritis injections around which I think is causing her to vomit and has severe tenderness she contracted around to the left flank. CAT scan of abdomen and pelvis was negative. We will send a urine culture off. If positive, we will treat outpatient. She will be discharged home tonight to follow up with [facility] in the morning. MMODL / IJN: [id number] /
--- NOTE | 2023-12-01 07:31 | P.CONS ---
History of Present Illness - Reason for Consult Consult date: 11/30/23 Pyelonephritis Requesting physician: Armando Willams - Chief Complaint Left flank pain and dysuria x 2 days - History of Present Illness Patient is a 38-year-old female with a past medical history significant for Crohn's colitis interstitial cystitis COVID-19, patient presenting to the hospital for evaluation of left flank pain nausea and vomiting symptom has been getting worse for 2 days before presentation to the hospital patient describing the pain to the left flank area to be sharp almost 10 out of 10 in severity without any radiation patient also complaining of burning frequency of urine patient did have some chills but denies high-grade fever on presentation to the hospital the patient was afebrile and no fever have been called subsequently patient was not tachycardic hypotensive or hypoxic did have vital of 8.8 creatinine 0.69 UA was positive with leukocyte Estrace and 12 WBC many bacteria cultures currently pending blood culture has been obtained patient did have abdominal pelvis CT no suspicious abnormality to account for the left flank pain patient was started on Rocephin admit to the hospital infectious disease was consulted for further management of antibiotic therapy patient also have a pelvic ultrasound that was negative Review of Systems Positive point and negatives has been mentioned in the HPI, complete review of systems was performed and all other systems are negative Past Medical History Past Medical History: Renal Disease Additional Past Medical History / Comment(s): COLITIS, uti's, kidney infections, interstitial cystitis, kidney stones, RECTAL BLEEDING, cronhs,. covid 02/01 History of Any Multi-Drug Resistant Organisms: None Reported Past Surgical History: Appendectomy, Cholecystectomy, Hysterectomy, Tubal Ligation Additional Past Surgical History / Comment(s): novasure ENDOMETRIAL ABLATION, COLONOSCOPY Past Anesthesia/Blood Transfusion Reactions: No Reported Reaction Past Psychological History: No Psychological Hx Reported Smoking Status: Never smoker Past Alcohol Use History: None Reported Past Drug Use History: None Reported - Past Family History Father Family Medical History: No Reported History Mother Family Medical History: Cancer Additional Family Medical History / Comment(s): COLON CANCER Medications and Allergies Home Medications Medication Instructions Recorded Confirmed Type Ondansetron Odt [Zofran Odt] 4 mg PO Q8HR PRN #10 tab 09/24/23 11/30/23 Rx HYDROcodone/APAP 7.5-325MG [[place] 1 tab PO Q6H PRN 11/30/23 11/30/23 History 7.5-325] Losartan [Cozaar] 12.5 mg PO DAILY 11/30/23 11/30/23 History Allergies Allergy/AdvReac Type Severity Reaction Status Date / Time metoclopramide [From Reglan] AdvReac Mild Rapid Verified 11/29/23 18:19 Heart Rate & Shortness of Breath prochlorperazine maleate AdvReac Rapid Verified 11/29/23 18:19 [From Compazine] Heart Rate & Shortness of Breath Physical Exam Vitals: Vital Signs Temp Pulse Resp BP Pulse Ox 11/30/23 15:13 88 16 107/75 100 11/30/23 10:31 71 18 129/78 100 11/30/23 06:00 60 16 110/69 98 11/30/23 04:45 57 L 16 101/59 100 11/29/23 23:30 80 16 137/77 98 11/29/23 22:33 70 18 115/82 100 11/29/23 18:16 98.5 F 72 18 121/81 100 GENERAL DESCRIPTION: Middle-aged female lying in bed, no distress. No tachypnea or accessory muscle of respiration use. HEENT: Shows Pallor , no scleral icterus. Oral mucous membrane is dry. No pharyngeal erythema or thrush NECK: Trachea central, no thyromegaly. LUNGS: Unlabored breathing. Clear to auscultation anteriorly. No wheeze or crackle. HEART: S1, S2, regular rate and rhythm. No loud murmur ABDOMEN: Soft, left flank tenderness , guarding or rigidity, no organomegaly EXTREMITIES: No edema of feet. SKIN: No rash, no masses palpable. NEUROLOGICAL: The patient is awake, alert, oriented x3, mood and affect normal. Results CBC & Chem 7: 11/29/23 19:48 11/29/23 19:48 Labs: Abnormal Lab Results - Last 24 Hours (Table) 11/29/23 11/29/23 Range/Units 19:48 19:48 Chloride 108 H (98-107) mmol/L Urine Blood Small H (Negative) Ur Leukocyte Esterase Small H (Negative) Urine WBC 12 H (0-5) /hpf Urine Bacteria Many H (None) /hpf Urine Mucus Rare H (None) /hpf Assessment and Plan (1) Pyelonephritis of left kidney Status: Acute Code(s): N12 - TUBULO-INTERSTITIAL NEPHRITIS, NOT SPCF ACUTE OR CHRONIC SNOMED Code(s): 78695965 Plan: 1patient presented to hospital with left flank pain nausea vomiting dysuria did have a positive UA concerning for symptomatic UTI/pyelonephritis likely from enteric gram-negative pathogen. 2patient to be treated with Rocephin while waiting for the culture to finalize. We will follow on clinical condition and cultures to further adjust medication if needed Thank you for this consultation we will follow the patient along with you Dictation was produced using [employer] software. please excuse any grammatical, word or spelling errors.
== END 2023-11-30 21:27 | disposition home or self-care (01) ==
LOC: EC 18:12 → 6NMEDSUR 22:54
PROVIDERS: ADMIT Family Medicine; ATTEND Family Medicine
DX: N10 Acute pyelonephritis (principal); K50.10 Crohn's disease of large intestine without complications; M54.14 Radiculopathy, thoracic region; N30.10 Interstitial cystitis (chronic) without hematuria; Z79.899 Other long term (current) drug therapy; Z88.8 Allergy status to other drugs, medicaments and biological substances; G89.29 Other chronic pain; Z87.442 Personal history of urinary calculi; Z90.49 Acquired absence of other specified parts of digestive tract; Z90.710 Acquired absence of both cervix and uterus; Z86.16 Personal history of COVID-19
CPT/HCPCS: 36415; 74176; 76856; 80048; 81001; 83605; 83690; 85025; 87040; 87077; 87086; 87186; 96361; 96365; 96367; 96375; 96376; 99284

== ENCOUNTER 2023-12-18 11:45 | Emergency (ER) | payer OTHER ==
--- NOTE | 2023-12-18 11:57 | ED ---
Abdominal Pain HPI - General Chief Complaint: Abdominal Pain Stated Complaint: Urogenital Time Seen by Provider: 12/18/23 12:02 Source: patient, RN notes reviewed Mode of arrival: ambulatory Limitations: no limitations - History of Present Illness Initial Comments: This is a 38-year-old female with a history of recurrent urinary tract infections and left flank pain symptoms emergency department for symptoms of nausea, vomiting, urinary symptoms and left flank pain. Patient states that since Tuesday she has been experiencing worsening dysuria and noticed a pink tinge while she is wiping. Endorses left flank pain with radiation into her abdomen. States that she has been having multiple episodes of emesis since yesterday as well. She endorses chills with no reported fevers. Endorses headache. Denies rhinorrhea or cough. Patient has followed with [facility] in the past for refractory left flank pain and is scheduled in February for injections for treatment. denies chance of , previous hysterectomy in 2014. - Related Data Home Medications Medication Instructions Recorded Confirmed HYDROcodone/APAP 7.5-325MG [[place] 1 tab PO Q6H PRN 11/30/23 11/30/23 7.5-325] Losartan [Cozaar] 12.5 mg PO DAILY 11/30/23 11/30/23 Previous Rx's Medication Instructions Recorded Ondansetron Odt [Zofran Odt] 4 mg PO Q8HR PRN #10 tab 09/24/23 Allergies Allergy/AdvReac Type Severity Reaction Status Date / Time metoclopramide [From Reglan] AdvReac Mild Rapid Verified 12/18/23 11:55 Heart Rate & Shortness of Breath prochlorperazine maleate AdvReac Rapid Verified 12/18/23 11:55 [From Compazine] Heart Rate & Shortness of Breath Review of Systems ROS Statement: Those systems with pertinent positive or pertinent negative responses have been documented in the HPI. ROS Other: All systems not noted in ROS Statement are negative. Past Medical History Past Medical History: Renal Disease Additional Past Medical History / Comment(s): COLITIS, uti's, kidney infections, interstitial cystitis, kidney stones, RECTAL BLEEDING, cronhs,. covid 02/01 History of Any Multi-Drug Resistant Organisms: None Reported Past Surgical History: Appendectomy, Cholecystectomy, Hysterectomy, Tubal Ligation Additional Past Surgical History / Comment(s): novasure ENDOMETRIAL ABLATION, COLONOSCOPY Past Anesthesia/Blood Transfusion Reactions: No Reported Reaction Past Psychological History: No Psychological Hx Reported Smoking Status: Never smoker Past Alcohol Use History: None Reported Past Drug Use History: None Reported - Past Family History Father Family Medical History: No Reported History Mother Family Medical History: Cancer Additional Family Medical History / Comment(s): COLON CANCER General Exam Limitations: no limitations General appearance: anxious Head exam: Present: atraumatic, normocephalic, normal inspection ENT exam: Present: normal exam, mucous membranes moist Neck exam: Present: normal inspection. Absent: tenderness, meningismus, lymphadenopathy Respiratory exam: Present: normal lung sounds bilaterally. Absent: respiratory distress, wheezes, rales, rhonchi, stridor Cardiovascular Exam: Present: regular rate, normal rhythm, normal heart sounds. Absent: systolic murmur, diastolic murmur, rubs, gallop, clicks GI/Abdominal exam: Present: soft, tenderness (LLQ), normal bowel sounds. Absent: distended, guarding, rebound, rigid Extremities exam: Present: normal inspection, full ROM, normal capillary refill. Absent: tenderness, pedal edema, joint swelling, calf tenderness Back exam: Present: normal inspection, CVA tenderness (L). Absent: CVA tenderness (R) Neurological exam: Present: alert, oriented X3, CN II-XII intact Skin exam: Present: warm, dry, intact, normal color. Absent: rash Course Vital Signs 12/18/23 12/18/23 11:52 12:25 Temperature 98.2 F 98.1 F Pulse Rate 99 89 Respiratory 20 18 Rate Blood Pressure 125/75 122/68 O2 Sat by Pulse 99 99 Oximetry Medical Decision Making - Medical Decision Making Was pt. sent in by a medical professional or institution (, PA, ANALYSIS ENGINEER, urgent care, hospital, or halfway...) When possible be specific @ -No Did you speak to anyone other than the patient for history (EMS, parent, family, police, friend...)? What history was obtained from this source @ -No Did you review nursing and triage notes (agree or disagree)? Why? @ -I reviewed and agree with nursing and triage notes Were old charts reviewed (outside hosp., previous admission, EMS record, old EKG, old radiological studies, urgent care reports/EKG's, halfway records)? Report findings @ -No old charts were reviewed Differential Diagnosis (chest pain, altered mental status, abdominal pain women, abdominal pain men, vaginal bleeding, weakness, fever, dyspnea, syncope, headache, dizziness, GI bleed, back pain, seizure, CVA, palpatations, mental health, musculoskeletal)? @ -Differential Abdominal Pain Women: Appendicitis, Cholecystitis, diverticulosis, ischemic bowel, pancreatitis, hepatitis, UTI, gastroenteritis, AAA, incarcerated hernia, bowel obstruction, constipation, inflammatory bowel, hepatitis, peptic ulcer disease, splenic infarction, perforated viscus, vulvitis, ovarian torsion, PID, kidney stone, placenta abruption, this is not meant to be an all-inclusive list EKG interpreted by me (3pts min.). @ -None X-rays interpreted by me (1pt min.). @ -None done CT interpreted by me (1pt min.). @ -None done U/S interpreted by me (1pt. min.). @ -None done What testing was considered but not performed or refused? (CT, X-rays, U/S, labs)? Why? @ -None What meds were considered but not given or refused? Why? @ -None Did you discuss the management of the patient with other professionals (professionals i.e. , PA, ANALYSIS ENGINEER, lab, RT, psych nurse, social media marketing manager, sas etl developer, teacher, property officer, residential case manager)? Give summary @ -No Was smoking cessation discussed for >3mins.? @ -No Was critical care preformed (if so, how long)? @ -No Were there social determinants of health that impacted care today? How? (Homelessness, low income, unemployed, alcoholism, drug addiction, transportation, low edu. Level, literacy, decrease access to med. care, half-way, re hab)? @ -No Was there de-escalation of care discussed even if they declined (Discuss DNR or withdrawal of care, Hospice)? DNR status @ -No What co-morbidities impacted this encounter? (DM, HTN, Smoking, COPD, CAD, Cancer, CVA, ARF, Chemo, Hep., AIDS, mental health diagnosis, sleep apnea, morbid obesity)? @ -None Was patient admitted / discharged? Hospital course, mention meds given and route, prescriptions, significant lab abnormalities, going to OR and other pertinent info. @ -discharged. 30-year-old female with urinary complaints and left flank pain. Patient is quite tearful on examination states that she has been experiencing refractory left flank pain over the past few months and is anxious to have an appointment with movement specialist in February. Vitals are stable. She is symptomatically treated with fluids, antiemetics, analgesics pending laboratory results. She is in agreement with this plan. CBC, CMP, urinalysis, lactic and pancreatic enzymes all within normal limits. On reevaluation, patient states that she is feeling some relief after pain medications and has not experienced an episode of emesis will be in the emergency department. Patient does have [place] that she does at home for pain states that she has not taken this over the past day because of her nausea and vomiting. Patient is stable for discharge at this time and recommend she follow-up outpatient with her primary care provider and specialist as scheduled. All questions answered at bedside and strict return parameters bobib with the patient she is verbalized understanding. Case discussed with Dr. elizabeth Undiagnosed new problem with uncertain prognosis? @ -No Drug Therapy requiring intensive monitoring for toxicity (Heparin, Nitro, Insulin, Cardizem)? @ -No Were any procedures done? @ -No Diagnosis/symptom? @ -flank pain, nausea/vomiting Acute, or Chronic, or Acute on Chronic? @ -acute on chronic Uncomplicated (without systemic symptoms) or Complicated (systemic symptoms)? @ -uncomplicated Side effects of treatment? @ -No Exacerbation, Progression, or Severe Exacerbation? @ -No Poses a threat to life or bodily function? How? (Chest pain, [place], [place], pneumonia, PE, COPD, DKA, ARF, appy, cholecystitis, CVA, Diverticulitis, Homicidal, Suicidal, threat to staff... and all critical care pts) @ -No - Lab Data Result diagrams: 12/18/23 12:21 12/18/23 12:21 Lab Results 12/18/23 12/18/23 12/18/23 Range/Units 12:21 12:21 12:21 WBC 9.4 (3.8-10.6) k/uL RBC 3.79 L (3.80-5.40) m/uL Hgb 12.4 (11.4-16.0) gm/dL Hct 36.2 (34.0-46.0) % MCV 95.4 (80.0-100.0) fL MCH 32.6 (25.0-35.0) pg MCHC 34.2 (31.0-37.0) g/dL RDW 12.1 (11.5-15.5) % Plt Count 327 (150-450) k/uL MPV 7.3 Neutrophils % 56 % Lymphocytes % 33 % Monocytes % 5 % Eosinophils % 3 % Basophils % 0 % Neutrophils # 5.3 (1.3-7.7) k/uL Lymphocytes # 3.1 (1.0-4.8) k/uL Monocytes # 0.4 (0-1.0) k/uL Eosinophils # 0.3 (0-0.7) k/uL Basophils # 0.0 (0-0.2) k/uL Sodium 137 (137-145) mmol/L Potassium 3.9 (3.5-5.1) mmol/L Chloride 108 H (98-107) mmol/L Carbon Dioxide 24 (22-30) mmol/L Anion Gap 5 mmol/L BUN 15 (7-17) mg/dL Creatinine 0.72 (0.52-1.04) mg/dL Est GFR (CKD-EPI)AfAm >90 (>60 ml/min/1.73 sqM) Est GFR (CKD-EPI)NonAf >90 (>60 ml/min/1.73 sqM) Glucose 74 (74-99) mg/dL Plasma Lactic Acid Kevin (0.7-2.0) mmol/L Calcium 9.7 (8.4-10.2) mg/dL Total Bilirubin 0.3 (0.2-1.3) mg/dL AST 20 (14-36) U/L ALT 24 (4-34) U/L Alkaline Phosphatase 70 (38-126) U/L Total Protein 7.1 (6.3-8.2) g/dL Albumin 4.5 (3.5-5.0) g/dL Amylase 83 (30-110) U/L Lipase 66 (23-300) U/L Urine Color Colorless Urine Appearance Clear (Clear) Urine pH 6.5 (5.0-8.0) Ur Specific [place] 1.024 (1.001-1.035) Urine Protein Negative (Negative) Urine Glucose (UA) Negative (Negative) Urine Ketones Negative (Negative) Urine Blood Trace H (Negative) Urine Nitrite Negative (Negative) Urine Bilirubin Negative (Negative) Urine Urobilinogen <2.0 (<2.0) mg/dL Ur Leukocyte Esterase Negative (Negative) Urine RBC 4 (0-5) /hpf Urine WBC 1 (0-5) /hpf Ur Squamous Epith Cells 2 (0-4) /hpf Urine Mucus Few H (None) /hpf 12/18/23 Range/Units 12:21 WBC (3.8-10.6) k/uL RBC (3.80-5.40) m/uL Hgb (11.4-16.0) gm/dL Hct (34.0-46.0) % MCV (80.0-100.0) fL MCH (25.0-35.0) pg MCHC (31.0-37.0) g/dL RDW (11.5-15.5) % Plt Count (150-450) k/uL MPV Neutrophils % % Lymphocytes % % Monocytes % % Eosinophils % % Basophils % % Neutrophils # (1.3-7.7) k/uL Lymphocytes # (1.0-4.8) k/uL Monocytes # (0-1.0) k/uL Eosinophils # (0-0.7) k/uL Basophils # (0-0.2) k/uL Sodium (137-145) mmol/L Potassium (3.5-5.1) mmol/L Chloride (98-107) mmol/L Carbon Dioxide (22-30) mmol/L Anion Gap mmol/L BUN (7-17) mg/dL Creatinine (0.52-1.04) mg/dL Est GFR (CKD-EPI)AfAm (>60 ml/min/1.73 sqM) Est GFR (CKD-EPI)NonAf (>60 ml/min/1.73 sqM) Glucose (74-99) mg/dL Plasma Lactic Acid Kevin 0.9 (0.7-2.0) mmol/L Calcium (8.4-10.2) mg/dL Total Bilirubin (0.2-1.3) mg/dL AST (14-36) U/L ALT (4-34) U/L Alkaline Phosphatase (38-126) U/L Total Protein (6.3-8.2) g/dL Albumin (3.5-5.0) g/dL Amylase (30-110) U/L Lipase (23-300) U/L Urine Color Urine Appearance (Clear) Urine pH (5.0-8.0) Ur Specific [place] (1.001-1.035) Urine Protein (Negative) Urine Glucose (UA) (Negative) Urine Ketones (Negative) Urine Blood (Negative) Urine Nitrite (Negative) Urine Bilirubin (Negative) Urine Urobilinogen (<2.0) mg/dL Ur Leukocyte Esterase (Negative) Urine RBC (0-5) /hpf Urine WBC (0-5) /hpf Ur Squamous Epith Cells (0-4) /hpf Urine Mucus (None) /hpf Disposition Clinical Impression: Chronic flank pain, Nausea and vomiting Disposition: HOME SELF-CARE Condition: Stable Instructions (If sedation given, give patient instructions): Flank Pain (ED) Additional Instructions: Please return to the Emergency Department if symptoms worsen or any other concerns. Recommend that you continue to follow outpatient with your primary care provider and specialist for further evaluation. Is patient prescribed a controlled substance at d/c from ED?: No Referrals: Armando Willams MD [Primary Care Provider] - 1-2 days Time of Disposition: 13:46
[2023-12-18 12:25] VITALS: RESP 18; TEMP 98.1
[2023-12-18 12:38] LABS: Appearance,Urine Clear (Clear); Bilirubin,Urine Negative (Negative); Blood,Urine Trace (Negative); Color,Urine Colorless; Glucose,Urine (UA) Negative (Negative); Ketones,Urine Negative (Negative); Leukocyte Esterase,Urine Negative (Negative); Mucus,Urine Few /hpf; Nitrite,Urine Negative (Negative); PH, Urine 6.5 (5.0-8.0); Protein,Urine Negative (Negative); RBC,Urine 4 /hpf (0-5); Specific Gravity,Urine 1.024 (1.001-1.035); Squamous Epithelial Cell,Urine 2 /hpf (0-4); Urobilinogen,Urine <2.0 mg/dL (<2.0); WBC,Urine 1 /hpf (0-5)
[2023-12-18] MEDS: ONDANSETRON 4 MG/2 ML VIAL IVP STA (13:03)
[2023-12-18] MEDS: HYDROmorphone 0.5 MG/0.5 ML SYRINGE IVP STA (13:03)
[2023-12-18] MEDS: SODIUM CHLORIDE 0.9% 1,000 ML IV STA (13:03)
[2023-12-18 13:22] LABS: Basophils % (A) 0 %; Eosinophils # (A) 0.3 k/uL (0-0.7); Eosinophils % (A) 3 %; HCT 36.2 % (34.0-46.0); HGB 12.4 gm/dL (11.4-16.0); Lymphocytes # (A) 3.1 k/uL (1.0-4.8); Lymphocytes % (A) 33 %; MCH 32.6 pg (25.0-35.0); MCHC 34.2 g/dL (31.0-37.0); MCV 95.4 fL (80.0-100.0); Mean Platelet Volume 7.3; Monocytes # (A) 0.4 k/uL (0-1.0); Monocytes % (A) 5 %; Neutrophils # (A) 5.3 k/uL (1.3-7.7); Neutrophils % (A) 56 %; Platelet Count 327 k/uL (150-450); RBC 3.79 m/uL (3.80-5.40); RDW 12.1 % (11.5-15.5); WBC 9.4 k/uL (3.8-10.6)
[2023-12-18 13:35] LABS: ALT 24 U/L (4-34); AST 20 U/L (14-36); African American GFR (CKD) >90 (>60 ml/min/1.73 sqM); Albumin 4.5 g/dL (3.5-5.0); Alkaline Phosphatase 70 U/L (38-126); Amylase 83 U/L (30-110); Anion Gap 5 mmol/L; Blood Urea Nitrogen 15 mg/dL (7-17); Calcium 9.7 mg/dL (8.4-10.2); Carbon Dioxide 24 mmol/L (22-30); Chloride 108 mmol/L (98-107); Glucose 74 mg/dL (74-99); Lipase 66 U/L (23-300); Non-African American GFR(CKD) >90 (>60 ml/min/1.73 sqM); Potassium 3.9 mmol/L (3.5-5.1); Sodium 137 mmol/L (137-145); Total Bilirubin 0.3 mg/dL (0.2-1.3); Total Protein 7.1 g/dL (6.3-8.2)
[2023-12-18] MEDS: HYDROmorphone 1 MG/ML 1 ML SYRINGE IVP STA (13:55)
[2023-12-18 14:22] VITALS: BP 120/76; PULSE 80
== END 2023-12-18 14:26 | disposition home or self-care (01) ==
LOC: EC 11:45
CPT/HCPCS: 36415; 80053; 81001; 82150; 83605; 83690; 85025; 96361; 96374; 96375; 96376; 99284

== ENCOUNTER 2024-01-14 11:22 | Emergency (ER) | payer OTHER ==
[2024-01-14 11:25] VITALS: TEMP 98.4
--- NOTE | 2024-01-14 11:44 | ED ---
General Adult HPI - General Chief complaint: Nausea/Vomiting/Diarrhea Stated complaint: Vomiting Time Seen by Provider: 01/14/24 11:26 Source: patient, RN notes reviewed Mode of arrival: ambulatory Limitations: no limitations - History of Present Illness Initial comments: 38-year-old female presents to the emergency department for evaluation of nausea and vomiting x 12 hours. Patient states that she has had multiple episodes of vomiting since early this morning. She notes that she has some diffuse lower abdominal discomfort. She also admits to dysuria and possible hematuria. Denies diarrhea or constipation. Denies hematemesis, melena, hematochezia. - Related Data Home Medications Medication Instructions Recorded Confirmed HYDROcodone/APAP 7.5-325MG [[place] 1 tab PO Q6H PRN 11/30/23 11/30/23 7.5-325] Losartan [Cozaar] 12.5 mg PO DAILY 11/30/23 11/30/23 Previous Rx's Medication Instructions Recorded Ondansetron Odt [Zofran Odt] 4 mg PO Q8HR PRN #10 tab 09/24/23 Allergies Allergy/AdvReac Type Severity Reaction Status Date / Time metoclopramide [From Reglan] AdvReac Mild Rapid Verified 01/14/24 11:25 Heart Rate & Shortness of Breath morphine AdvReac Unknown Verified 01/14/24 11:36 prochlorperazine maleate AdvReac Rapid Verified 01/14/24 11:25 [From Compazine] Heart Rate & Shortness of Breath Review of Systems ROS Statement: Those systems with pertinent positive or pertinent negative responses have been documented in the HPI. ROS Other: All systems not noted in ROS Statement are negative. Past Medical History Past Medical History: Renal Disease Additional Past Medical History / Comment(s): COLITIS, uti's, kidney infections, interstitial cystitis, kidney stones, RECTAL BLEEDING, cronhs,. covid 02/01 History of Any Multi-Drug Resistant Organisms: None Reported Past Surgical History: Appendectomy, Cholecystectomy, Hysterectomy, Tubal Ligation Additional Past Surgical History / Comment(s): novasure ENDOMETRIAL ABLATION, COLONOSCOPY Past Anesthesia/Blood Transfusion Reactions: No Reported Reaction Past Psychological History: No Psychological Hx Reported Smoking Status: Never smoker Past Alcohol Use History: None Reported Past Drug Use History: None Reported - Past Family History Father Family Medical History: No Reported History Mother Family Medical History: Cancer Additional Family Medical History / Comment(s): COLON CANCER General Exam Limitations: no limitations General appearance: alert, in no apparent distress Head exam: Present: atraumatic, normocephalic, normal inspection Eye exam: Present: normal appearance, PERRL, EOMI. Absent: scleral icterus, conjunctival injection, periorbital swelling ENT exam: Present: mucous membranes dry Neck exam: Present: normal inspection. Absent: tenderness, meningismus, lymphadenopathy Respiratory exam: Present: normal lung sounds bilaterally. Absent: respiratory distress, wheezes, rales, rhonchi, stridor Cardiovascular Exam: Present: regular rate, normal rhythm, normal heart sounds. Absent: systolic murmur, diastolic murmur, rubs, gallop, clicks GI/Abdominal exam: Present: soft, tenderness (diffuse), normal bowel sounds. Absent: distended, guarding, rebound, rigid Extremities exam: Present: normal inspection, full ROM, normal capillary refill. Absent: tenderness, pedal edema, joint swelling, calf tenderness Back exam: Absent: CVA tenderness (R), CVA tenderness (L) Neurological exam: Present: alert, oriented X3 Psychiatric exam: Present: normal affect, normal mood Skin exam: Present: warm, dry, intact, normal color. Absent: rash Course Vital Signs 01/14/24 01/14/24 01/14/24 11:23 14:21 15:32 Temperature 98.4 F Pulse Rate 99 92 84 Respiratory 16 20 20 Rate Blood Pressure 125/80 119/85 113/68 O2 Sat by Pulse 96 98 98 Oximetry Medical Decision Making - Medical Decision Making Was pt. sent in by a medical professional or institution (, PA, PROJECTION ENGINEER, urgent care, hospital, or shelter...) When possible be specific @ -No Did you speak to anyone other than the patient for history (EMS, parent, family, police, friend...)? What history was obtained from this source @ -No Did you review nursing and triage notes (agree or disagree)? Why? @ -I reviewed and agree with nursing and triage notes Were old charts reviewed (outside hosp., previous admission, EMS record, old EKG, old radiological studies, urgent care reports/EKG's, shelter records)? Report findings @ -Reviewed chart from prior visit Differential Diagnosis (chest pain, altered mental status, abdominal pain women, abdominal pain men, vaginal bleeding, weakness, fever, dyspnea, syncope, headache, dizziness, GI bleed, back pain, seizure, CVA, palpatations, mental he alth, musculoskeletal)? @ -Differential Abdominal Pain Women: Appendicitis, Cholecystitis, diverticulosis, ischemic bowel, pancreatitis, hepatitis, UTI, gastroenteritis, AAA, incarcerated hernia, bowel obstruction, constipation, inflammatory bowel, hepatitis, peptic ulcer disease, splenic infarction, perforated viscus, vulvitis, ovarian torsion, PID, kidney stone, placenta abruption, this is not meant to be an all-inclusive list EKG interpreted by me (3pts min.). @ -none X-rays interpreted by me (1pt min.). @ -None done CT interpreted by me (1pt min.). @ -None done U/S interpreted by me (1pt. min.). @ -None done What testing was considered but not performed or refused? (CT, X-rays, U/S, labs)? Why? @ -None What meds were considered but not given or refused? Why? @ -None Did you discuss the management of the patient with other professionals (professionals i.e. , PA, PROJECTION ENGINEER, lab, RT, psych nurse, social media designer, telephone lineworker, teacher, finance officer, telephonic nurse case manager)? Give summary @ -No Was smoking cessation discussed for >3mins.? @ -No Was critical care preformed (if so, how long)? @ -No Were there social determinants of health that impacted care today? How? (Homelessness, low income, unemployed, alcoholism, drug addiction, transportation, low edu. Level, literacy, decrease access to med. care, shelter, rehab)? @ -No Was there de-escalation of care discussed even if they declined (Discuss DNR or withdrawal of care, Hospice)? DNR status @ -No What co-morbidities impacted this encounter? (DM, HTN, Smoking, COPD, CAD, Cancer, CVA, ARF, Chemo, Hep., AIDS, mental health diagnosis, sleep apnea, morbid obesity)? @ -None Was patient admitted / discharged? Hospital course, mention meds given and route, prescriptions, significant lab abnormalities, going to OR and other pertinent info. @ -Discharged. Patient presented to the emergency department for evaluation of nausea and vomiting. Patient has long standing history of similar symptoms. She reports this started at 0230 today. Denies fever, chills, constipation. Reports diffuse abdominal discomfort. Laboratory studies obtained revealing no significant leukocytosis, BUN, creatinine within normal limits, normal electrolytes. UA shows trace blood, no evidence of infectious process. Patient received 1 L of normal saline on the emergency department along with medication for nausea and pain control. She reports improvement in her symptoms. Patient will be discharged home. She is understanding and agreeable with plan. Patient stable at time of discharge. Case discussed with Dr. Reyes Undiagnosed new problem with uncertain prognosis? @ -No Drug Therapy requiring intensive monitoring for toxicity (Heparin, Nitro, Insulin, Cardizem)? @ -No Were any procedures done? @ -No Diagnosis/symptom? @ -Nausea and vomiting Acute, or Chronic, or Acute on Chronic? @ -Acute on chronic Uncomplicated (without systemic symptoms) or Complicated (systemic symptoms)? @ -Uncomplicated Side effects of treatment? @ -No Exacerbation, Progression, or Severe Exacerbation? @ -No Poses a threat to life or bodily function? How? (Chest pain, [place], [place], pneumonia, PE, COPD, DKA, ARF, appy, cholecystitis, CVA, Diverticulitis, Homicidal, Suicidal, threat to staff... and all critical care pts) @ -No - Lab Data Result diagrams: 01/14/24 11:54 01/14/24 11:54 Lab Results 01/14/24 01/14/24 01/14/24 Range/Units 11:54 11:54 11:54 WBC 8.6 (3.8-10.6) k/uL RBC 4.35 (3.80-5.40) m/uL Hgb 13.8 (11.4-16.0) gm/dL Hct 42.0 (34.0-46.0) % MCV 96.5 (80.0-100.0) fL MCH 31.6 (25.0-35.0) pg MCHC 32.8 (31.0-37.0) g/dL RDW 11.5 (11.5-15.5) % Plt Count 317 (150-450) k/uL MPV 6.8 Neutrophils % 52 % Lymphocytes % 38 % Monocytes % 4 % Eosinophils % 3 % Basophils % 1 % Neutrophils # 4.4 (1.3-7.7) k/uL Lymphocytes # 3.3 (1.0-4.8) k/uL Monocytes # 0.3 (0-1.0) k/uL Eosinophils # 0.3 (0-0.7) k/uL Basophils # 0.1 (0-0.2) k/uL Sodium (137-145) mmol/L Potassium (3.5-5.1) mmol/L Chloride (98-107) mmol/L Carbon Dioxide (22-30) mmol/L Anion Gap mmol/L BUN (7-17) mg/dL Creatinine (0.52-1.04) mg/dL Est GFR (CKD-EPI)AfAm (>60 ml/min/1.73 sqM) Est GFR (CKD-EPI)NonAf (>60 ml/min/1.73 sqM) Glucose (74-99) mg/dL Calcium (8.4-10.2) mg/dL Total Bilirubin (0.2-1.3) mg/dL AST (14-36) U/L ALT (4-34) U/L Alkaline Phosphatase (38-126) U/L Total Protein (6.3-8.2) g/dL Albumin (3.5-5.0) g/dL Urine Color Light Yellow Urine Appearance Cloudy H (Clear) Urine pH 7.5 (5.0-8.0) Ur Specific [place] 1.018 (1.001-1.035) Urine Protein Trace H (Negative) Urine Glucose (UA) Negative (Negative) Urine Ketones Negative (Negative) Urine Blood Trace H (Negative) Urine Nitrite Negative (Negative) Urine Bilirubin Negative (Negative) Urine Urobilinogen <2.0 (<2.0) mg/dL Ur Leukocyte Esterase Negative (Negative) Urine RBC 9 H (0-5) /hpf Urine WBC 3 (0-5) /hpf Ur Squamous Epith Cells 18 H (0-4) /hpf Urine Mucus Many H (None) /hpf Urine HCG, Qual Not Detected (Not Detectd) 01/14/24 Range/Units 11:54 WBC (3.8-10.6) k/uL RBC (3.80-5.40) m/uL Hgb (11.4-16.0) gm/dL Hct (34.0-46.0) % MCV (80.0-100.0) fL MCH (25.0-35.0) pg MCHC (31.0-37.0) g/dL RDW (11.5-15.5) % Plt Count (150-450) k/uL MPV Neutrophils % % Lymphocytes % % Monocytes % % Eosinophils % % Basophils % % Neutrophils # (1.3-7.7) k/uL Lymphocytes # (1.0-4.8) k/uL Monocytes # (0-1.0) k/uL Eosinophils # (0-0.7) k/uL Basophils # (0-0.2) k/uL Sodium 137 (137-145) mmol/L Potassium 3.9 (3.5-5.1) mmol/L Chloride 105 (98-107) mmol/L Carbon Dioxide 25 (22-30) mmol/L Anion Gap 7 mmol/L BUN 8 (7-17) mg/dL Creatinine 0.63 (0.52-1.04) mg/dL Est GFR (CKD-EPI)AfAm >90 (>60 ml/min/1.73 sqM) Est GFR (CKD-EPI)NonAf >90 (>60 ml/min/1.73 sqM) Glucose 79 (74-99) mg/dL Calcium 9.1 (8.4-10.2) mg/dL Total Bilirubin 0.5 (0.2-1.3) mg/dL AST 22 (14-36) U/L ALT 14 (4-34) U/L Alkaline Phosphatase 67 (38-126) U/L Total Protein 8.0 (6.3-8.2) g/dL Albumin 5.0 (3.5-5.0) g/dL Urine Color Urine Appearance (Clear) Urine pH (5.0-8.0) Ur Specific [place] (1.001-1.035) Urine Protein (Negative) Urine Glucose (UA) (Negative) Urine Ketones (Negative) Urine Blood (Negative) Urine Nitrite (Negative) Urine Bilirubin (Negative) Urine Urobilinogen (<2.0) mg/dL Ur Leukocyte Esterase (Negative) Urine RBC (0-5) /hpf Urine WBC (0-5) /hpf Ur Squamous Epith Cells (0-4) /hpf Urine Mucus (None) /hpf Urine HCG, Qual (Not Detectd) Disposition Clinical Impression: Abdominal pain, Nausea and vomiting Disposition: HOME SELF-CARE Condition: Stable Instructions (If sedation given, give patient instructions): Acute Nausea and Vomiting (ED) Additional Instructions: Please follow up with your primary care provider. Return to the emergency department for new or worsening symptoms. Is patient prescribed a controlled substance at d/c from ED?: No Referrals: Armando Willams MD [Primary Care Provider] - 1-2 days
[2024-01-14] MEDS: ONDANSETRON 4 MG/2 ML VIAL IVP STA ×2 (12:19→14:14)
[2024-01-14] MEDS: KETOROLAC 15 MG/ML 1 ML VIAL IVP STA ×2 (12:19→14:13)
[2024-01-14] MEDS: SODIUM CHLORIDE 0.9% 1,000 ML IV ONE (12:20)
[2024-01-14 12:36] LABS: Basophils # (A) 0.1 k/uL (0-0.2); Basophils % (A) 1 %; Eosinophils # (A) 0.3 k/uL (0-0.7); Eosinophils % (A) 3 %; HGB 13.8 gm/dL (11.4-16.0); Lymphocytes # (A) 3.3 k/uL (1.0-4.8); Lymphocytes % (A) 38 %; MCH 31.6 pg (25.0-35.0); MCHC 32.8 g/dL (31.0-37.0); MCV 96.5 fL (80.0-100.0); Mean Platelet Volume 6.8; Monocytes # (A) 0.3 k/uL (0-1.0); Monocytes % (A) 4 %; Neutrophils # (A) 4.4 k/uL (1.3-7.7); Neutrophils % (A) 52 %; Platelet Count 317 k/uL (150-450); RBC 4.35 m/uL (3.80-5.40); RDW 11.5 % (11.5-15.5); WBC 8.6 k/uL (3.8-10.6)
[2024-01-14 12:47] LABS: Appearance,Urine Cloudy (Clear); Bilirubin,Urine Negative (Negative); Blood,Urine Trace (Negative); Color,Urine Light Yellow; Glucose,Urine (UA) Negative (Negative); Ketones,Urine Negative (Negative); Leukocyte Esterase,Urine Negative (Negative); Mucus,Urine Many /hpf; Nitrite,Urine Negative (Negative); PH, Urine 7.5 (5.0-8.0); Protein,Urine Trace (Negative); RBC,Urine 9 /hpf (0-5); Specific Gravity,Urine 1.018 (1.001-1.035); Squamous Epithelial Cell,Urine 18 /hpf (0-4); Urobilinogen,Urine <2.0 mg/dL (<2.0); WBC,Urine 3 /hpf (0-5)
[2024-01-14 13:28] LABS: ALT 14 U/L (4-34); AST 22 U/L (14-36); African American GFR (CKD) >90 (>60 ml/min/1.73 sqM); Alkaline Phosphatase 67 U/L (38-126); Anion Gap 7 mmol/L; Blood Urea Nitrogen 8 mg/dL (7-17); Calcium 9.1 mg/dL (8.4-10.2); Carbon Dioxide 25 mmol/L (22-30); Chloride 105 mmol/L (98-107); Glucose 79 mg/dL (74-99); Non-African American GFR(CKD) >90 (>60 ml/min/1.73 sqM); Potassium 3.9 mmol/L (3.5-5.1); Sodium 137 mmol/L (137-145); Total Bilirubin 0.5 mg/dL (0.2-1.3)
[2024-01-14] MEDS: HYDROmorphone 0.5 MG/0.5 ML SYRINGE IVP STA ×2 (14:14→15:25)
[2024-01-14 14:22] VITALS: RESP 20
[2024-01-14 15:34] VITALS: BP 113/68; PULSE 84
== END 2024-01-14 15:34 | disposition home or self-care (01) ==
LOC: EC 11:22
DX: R10.9 Unspecified abdominal pain (principal); R11.2 Nausea with vomiting, unspecified; Z88.5 Allergy status to narcotic agent; Z88.8 Allergy status to other drugs, medicaments and biological substances; Z86.16 Personal history of COVID-19
CPT/HCPCS: 36415; 80053; 85025; 81001; 81025; 99284; 96374; 96375; 96376; 96361; J2405; J1885; J1171

== ENCOUNTER 2024-04-08 17:23 | Emergency (ER) | payer OTHER ==
--- NOTE | 2024-04-08 18:02 | ED ---
General Adult HPI - General Chief complaint: Abdominal Pain Stated complaint: vomiting stomach pain Time Seen by Provider: 04/08/24 17:29 Source: patient, RN notes reviewed Mode of arrival: ambulatory Limitations: no limitations - History of Present Illness Initial comments: 39-year-old female presents to the emergency department for evaluation of nausea and vomiting. Patient reports that this has been going on since early this morning. She admits to generalized abdominal discomfort. She notes dysuria with a history of interstitial cystitis. She has been here multiple times for similar complaints in the past. She denies recent fever, chills. Admits to normal bowel movements. - Related Data Home Medications Medication Instructions Recorded Confirmed HYDROcodone/APAP 7.5-325MG [[place] 1 tab PO Q6H PRN 11/30/23 11/30/23 7.5-325] Losartan [Cozaar] 12.5 mg PO DAILY 11/30/23 11/30/23 Previous Rx's Medication Instructions Recorded Ondansetron Odt [Zofran Odt] 4 mg PO Q8HR PRN #10 tab 09/24/23 Allergies Allergy/AdvReac Type Severity Reaction Status Date / Time metoclopramide [From Reglan] AdvReac Mild Rapid Verified 04/08/24 17:29 Heart Rate & Shortness of Breath morphine AdvReac Unknown Verified 04/08/24 17:29 prochlorperazine maleate AdvReac Rapid Verified 04/08/24 17:29 [From Compazine] Heart Rate & Shortness of Breath Review of Systems ROS Statement: Those systems with pertinent positive or pertinent negative responses have been documented in the HPI. ROS Other: All systems not noted in ROS Statement are negative. Past Medical History Past Medical History: Renal Disease Additional Past Medical History / Comment(s): COLITIS, uti's, kidney infections, interstitial cystitis, kidney stones, RECTAL BLEEDING, cronhs,. covid 02/01 History of Any Multi-Drug Resistant Organisms: None Reported Past Surgical History: Appendectomy, Cholecystectomy, Hysterectomy, Tubal Ligation Additional Past Surgical History / Comment(s): novasure ENDOMETRIAL ABLATION, COLONOSCOPY Past Anesthesia/Blood Transfusion Reactions: No Reported Reaction Past Psychological History: No Psychological Hx Reported Smoking Status: Never smoker Past Alcohol Use History: None Reported Past Drug Use History: None Reported - Past Family History Father Family Medical History: No Reported History Mother Family Medical History: Cancer Additional Family Medical History / Comment(s): COLON CANCER General Exam Limitations: no limitations General appearance: alert, in no apparent distress Head exam: Present: atraumatic, normocephalic, normal inspection Eye exam: Present: normal appearance, PERRL, EOMI. Absent: scleral icterus, c onjunctival injection, periorbital swelling ENT exam: Present: normal exam, mucous membranes moist Neck exam: Present: normal inspection. Absent: tenderness, meningismus, lymphadenopathy Respiratory exam: Present: normal lung sounds bilaterally. Absent: respiratory distress, wheezes, rales, rhonchi, stridor Cardiovascular Exam: Present: regular rate, normal rhythm, normal heart sounds. Absent: systolic murmur, diastolic murmur, rubs, gallop, clicks GI/Abdominal exam: Present: soft, tenderness (diffuse ), normal bowel sounds. Absent: distended, guarding, rebound, rigid Extremities exam: Present: normal inspection, full ROM, normal capillary refill. Absent: tenderness, pedal edema, joint swelling, calf tenderness Back exam: Present: normal inspection Neurological exam: Present: alert, oriented X3 Psychiatric exam: Present: normal affect, normal mood Skin exam: Present: warm, dry, intact, normal color. Absent: rash Course Vital Signs 04/08/24 04/08/24 17:26 19:31 Temperature 98.6 F 98.8 F Pulse Rate 98 89 Respiratory 18 16 Rate Blood Pressure 136/74 114/75 O2 Sat by Pulse 98 98 Oximetry Medical Decision Making - Medical Decision Making Was pt. sent in by a medical professional or institution (, PA, MAGISTRATE ASSISTANT, urgent care, hospital, or intermediate...) When possible be specific @ -No Did you speak to anyone other than the patient for history (EMS, parent, family, police, friend...)? What history was obtained from this source @ -No Did you review nursing and triage notes (agree or disagree)? Why? @ -I reviewed and agree with nursing and triage notes Were old charts reviewed (outside hosp., previous admission, EMS record, old EKG, old radiological studies, urgent care reports/EKG's, intermediate records)? Report findings @ -No old charts were reviewed Differential Diagnosis (chest pain, altered mental status, abdominal pain women, abdominal pain men, vaginal bleeding, weakness, fever, dyspnea, syncope, headache, dizziness, GI bleed, back pain, seizure, CVA, palpatations, mental health, musculoskeletal)? @ -Differential Abdominal Pain Women: Appendicitis, Cholecystitis, diverticulosis, ischemic bowel, pancreatitis, hepatitis, UTI, gastroenteritis, AAA, incarcerated hernia, bowel obstruction, constipation, inflammatory bowel, hepatitis, peptic ulcer disease, splenic infarction, perforated viscus, vulvitis, ovarian torsion, PID, kidney stone, placenta abruption, this is not meant to be an all-inclusive list EKG interpreted by me (3pts min.). @ -none X-rays interpreted by me (1pt min.). @ -None done CT interpreted by me (1pt min.). @ -None done U/S interpreted by me (1pt. min.). @ -None done What testing was considered but not performed or refused? (CT, X-rays, U/S, labs)? Why? @ -None What meds were considered but not given or refused? Why? @ -None Did you discuss the management of the patient with other professionals (professionals i.e. , PA, MAGISTRATE ASSISTANT, lab, RT, psych nurse, health and social care teacher, cyber defense incident responder, teacher, air control/anti air warfare officer, corrections caseworker)? Give summary @ -No Was smoking cessation discussed for >3mins.? @ -No Was critical care preformed (if so, how long)? @ -No Were there social determinants of health that impacted care today? How? (Homelessness, low income, unemployed, alcoholism, drug addiction, transportation, low edu. Level, literacy, decrease access to med. care, fci, rehab)? @ -No Was there de-escalation of care discussed even if they declined (Discuss DNR or withdrawal of care, Hospice)? DNR status @ -No What co-morbidities impacted this encounter? (DM, HTN, Smoking, COPD, CAD, Cancer, CVA, ARF, Chemo, Hep., AIDS, mental health diagnosis, sleep apnea, morbid obesity)? @ -None Was patient admitted / discharged? Hospital course, mention meds given and route, prescriptions, significant lab abnormalities, going to OR and other pertinent info. @ -Discharge. Patient presented emergency department for evaluation of nausea and vomiting. Laboratory studies were obtained.There is no significant leukocytosis, hemoglobin 9.8; CMP nonactionable at this time, lipase 129. UA shows no evidence of infectious process. Urine hCG negative. Patient was provided fluid hydration and medication for symptom control in the ED. She reports significant improvement in her symptoms. Patient will be discharged home advised follow-up to her PCP. She is understanding agreeable with plan. Patient stable at time of discharge. Case discussed with Dr. Baker Undiagnosed new problem with uncertain prognosis? @ -No Drug Therapy requiring intensive monitoring for toxicity (Heparin, Nitro, Insulin, Cardizem)? @ -No Were any procedures done? @ -No Diagnosis/symptom? @ -Nausea vomiting Acute, or Chronic, or Acute on Chronic? @ -Acute Uncomplicated (without systemic symptoms) or Complicated (systemic symptoms)? @ -Uncomplicated Side effects of treatment? @ -No Exacerbation, Progression, or Severe Exacerbation? @ -No Poses a threat to life or bodily function? How? (Chest pain, [place], [place], pneumonia, PE, COPD, DKA, ARF, appy, cholecystitis, CVA, Diverticulitis, Homicidal, Suicidal, threat to staff... and all critical care pts) @ -No - Lab Data Result diagrams: 04/08/24 18:10 04/08/24 18:10 Lab Results 04/08/24 04/08/24 04/08/24 Range/Units 18:10 18:10 18:10 WBC 7.9 (3.8-10.6) k/uL RBC 3.66 L (3.80-5.40) m/uL Hgb 11.8 (11.4-16.0) gm/dL Hct 34.4 (34.0-46.0) % MCV 94.0 (80.0-100.0) fL MCH 32.3 (25.0-35.0) pg MCHC 34.3 (31.0-37.0) g/dL RDW 11.6 (11.5-15.5) % Plt Count 422 (150-450) k/uL MPV 6.9 Neutrophils % 50 % Lymphocytes % 38 % Monocytes % 5 % Eosinophils % 4 % Basophils % 1 % Neutrophils # 3.9 (1.3-7.7) k/uL Lymphocytes # 3.0 (1.0-4.8) k/uL Monocytes # 0.4 (0-1.0) k/uL Eosinophils # 0.4 (0-0.7) k/uL Basophils # 0.1 (0-0.2) k/uL Sodium (137-145) mmol/L Potassium (3.5-5.1) mmol/L Chloride (98-107) mmol/L Carbon Dioxide (22-30) mmol/L Anion Gap mmol/L BUN (7-17) mg/dL Creatinine (0.52-1.04) mg/dL Est GFR (CKD-EPI)AfAm (>60 ml/min/1.73 sqM) Est GFR (CKD-EPI)NonAf (>60 ml/min/1.73 sqM) Glucose (74-99) mg/dL Calcium (8.4-10.2) mg/dL Total Bilirubin (0.2-1.3) mg/dL AST (14-36) U/L ALT (4-34) U/L Alkaline Phosphatase (38-126) U/L Total Protein (6.3-8.2) g/dL Albumin (3.5-5.0) g/dL Amylase (30-110) U/L Lipase (23-300) U/L Urine Color Yellow Urine Appearance Cloudy H (Clear) Urine pH 6.0 (5.0-8.0) Ur Specific [place] 1.029 (1.001-1.035) Urine Protein Trace H (Negative) Urine Glucose (UA) Negative (Negative) Urine Ketones Negative (Negative) Urine Blood Small H (Negative) Urine Nitrite Negative (Negative) Urine Bilirubin Negative (Negative) Urine Urobilinogen 2.0 (<2.0) mg/dL Ur Leukocyte Esterase Negative (Negative) Urine RBC 5 (0-5) /hpf Urine WBC 3 (0-5) /hpf Ur Squamous Epith Cells 9 H (0-4) /hpf Urine Mucus Occasional H (None) /hpf Urine HCG, Qual Not Detected (Not Detectd) 04/08/24 Range/Units 18:10 WBC (3.8-10.6) k/uL RBC (3.80-5.40) m/uL Hgb (11.4-16.0) gm/dL Hct (34.0-46.0) % MCV (80.0-100.0) fL MCH (25.0-35.0) pg MCHC (31.0-37.0) g/dL RDW (11.5-15.5) % Plt Count (150-450) k/uL MPV Neutrophils % % Lymphocytes % % Monocytes % % Eosinophils % % Basophils % % Neutrophils # (1.3-7.7) k/uL Lymphocytes # (1.0-4.8) k/uL Monocytes # (0-1.0) k/uL Eosinophils # (0-0.7) k/uL Basophils # (0-0.2) k/uL Sodium 138 (137-145) mmol/L Potassium 3.7 (3.5-5.1) mmol/L Chloride 105 (98-107) mmol/L Carbon Dioxide 27 (22-30) mmol/L Anion Gap 6 mmol/L BUN 17 (7-17) mg/dL Creatinine 0.75 (0.52-1.04) mg/dL Est GFR (CKD-EPI)AfAm >90 (>60 ml/min/1.73 sqM) Est GFR (CKD-EPI)NonAf >90 (>60 ml/min/1.73 sqM) Glucose 82 (74-99) mg/dL Calcium 9.0 (8.4-10.2) mg/dL Total Bilirubin 0.4 (0.2-1.3) mg/dL AST 27 (14-36) U/L ALT 26 (4-34) U/L Alkaline Phosphatase 59 (38-126) U/L Total Protein 6.5 (6.3-8.2) g/dL Albumin 4.1 (3.5-5.0) g/dL Amylase 94 (30-110) U/L Lipase 129 (23-300) U/L Urine Color Urine Appearance (Clear) Urine pH (5.0-8.0) Ur Specific [place] (1.001-1.035) Urine Protein (Negative) Urine Glucose (UA) (Negative) Urine Ketones (Negative) Urine Blood (Negative) Urine Nitrite (Negative) Urine Bilirubin (Negative) Urine Urobilinogen (<2.0) mg/dL Ur Leukocyte Esterase (Negative) Urine RBC (0-5) /hpf Urine WBC (0-5) /hpf Ur Squamous Epith Cells (0-4) /hpf Urine Mucus (None) /hpf Urine HCG, Qual (Not Detectd) Disposition Clinical Impression: Abdominal pain Disposition: HOME SELF-CARE Condition: Stable Instructions (If sedation given, give patient instructions): Abdominal Pain (ED) Additional Instructions: Please follow up with your primary care provider. Return to the emergency department for new or worsening symptoms. Is patient prescribed a controlled substance at d/c from ED?: No Referrals: Armando Willams MD [Primary Care Provider] - 1-2 days
[2024-04-08] MEDS: SODIUM CHLORIDE 0.9% 1,000 ML IV STA (18:18)
[2024-04-08] MEDS: KETOROLAC 15 MG/ML 1 ML VIAL IVP STA (18:19)
[2024-04-08] MEDS: ONDANSETRON 4 MG/2 ML VIAL IVP STA ×2 (18:19→19:29)
[2024-04-08 18:33] LABS: Appearance,Urine Cloudy (Clear); Bilirubin,Urine Negative (Negative); Blood,Urine Small (Negative); Color,Urine Yellow; Glucose,Urine (UA) Negative (Negative); Ketones,Urine Negative (Negative); Leukocyte Esterase,Urine Negative (Negative); Mucus,Urine Occasional /hpf; Nitrite,Urine Negative (Negative); Protein,Urine Trace (Negative); RBC,Urine 5 /hpf (0-5); Specific Gravity,Urine 1.029 (1.001-1.035); Squamous Epithelial Cell,Urine 9 /hpf (0-4); WBC,Urine 3 /hpf (0-5)
[2024-04-08 18:48] LABS: ALT 26 U/L (4-34); AST 27 U/L (14-36); African American GFR (CKD) >90 (>60 ml/min/1.73 sqM); Albumin 4.1 g/dL (3.5-5.0); Alkaline Phosphatase 59 U/L (38-126); Amylase 94 U/L (30-110); Anion Gap 6 mmol/L; Basophils # (A) 0.1 k/uL (0-0.2); Basophils % (A) 1 %; Blood Urea Nitrogen 17 mg/dL (7-17); Carbon Dioxide 27 mmol/L (22-30); Chloride 105 mmol/L (98-107); Eosinophils # (A) 0.4 k/uL (0-0.7); Eosinophils % (A) 4 %; Glucose 82 mg/dL (74-99); HCT 34.4 % (34.0-46.0); HGB 11.8 gm/dL (11.4-16.0); Lipase 129 U/L (23-300); Lymphocytes % (A) 38 %; MCH 32.3 pg (25.0-35.0); MCHC 34.3 g/dL (31.0-37.0); Mean Platelet Volume 6.9; Monocytes # (A) 0.4 k/uL (0-1.0); Monocytes % (A) 5 %; Neutrophils # (A) 3.9 k/uL (1.3-7.7); Neutrophils % (A) 50 %; Non-African American GFR(CKD) >90 (>60 ml/min/1.73 sqM); Platelet Count 422 k/uL (150-450); Potassium 3.7 mmol/L (3.5-5.1); RBC 3.66 m/uL (3.80-5.40); RDW 11.6 % (11.5-15.5); Sodium 138 mmol/L (137-145); Total Bilirubin 0.4 mg/dL (0.2-1.3); Total Protein 6.5 g/dL (6.3-8.2); WBC 7.9 k/uL (3.8-10.6)
[2024-04-08] MEDS: HYDROmorphone 1 MG/ML 1 ML SYRINGE IVP STA (19:25)
[2024-04-08 19:32] VITALS: BP 114/75; PULSE 89; RESP 16; TEMP 98.8
== END 2024-04-08 19:48 | disposition home or self-care (01) ==
LOC: EC 17:23
DX: R10.84 Generalized abdominal pain (principal); R11.2 Nausea with vomiting, unspecified; Z88.5 Allergy status to narcotic agent; Z88.8 Allergy status to other drugs, medicaments and biological substances; Z86.16 Personal history of COVID-19
CPT/HCPCS: 36415; 80053; 82150; 83690; 85025; 81001; 81025; 99284; 96374; 96375 ×2; 96376; 96361; J2405; J1171; J1885

== ENCOUNTER 2024-06-05 18:07 | Emergency (ER) | payer OTHER ==
[2024-06-05 18:11] VITALS: RESP 18
--- NOTE | 2024-06-05 18:57 | ED ---
Nausea/Vomiting/Diarrhea HPI - General Source: patient, RN notes reviewed Mode of arrival: ambulatory Limitations: no limitations <Henny Gil - Last Filed: 06/05/24 18:56> <Elias Lino - Last Filed: 06/05/24 23:15> - General Source: patient, RN notes reviewed, old records reviewed <Chemo Markham - Last Filed: 06/07/24 00:29> - General Chief complaint: Nausea/Vomiting/Diarrhea Stated complaint: vomiting, abdominal pain Time Seen by Provider: 06/05/24 18:20 - History of Present Illness Initial comments: Quick [id number] female presenting to emergency department for chief complaint of nausea and vomiting over the past 2 days. Endorses dysuria as well as mild hematuria. Denies fevers, diarrhea, constipation. Previous cholecyste ctomy and appendectomy and hysterectomy. (Henny Gil) Patient is a 39-year-old female presents emergency department complaining of left flank pain. Has a history of kidney stones as well as decreased kidney function. States this is similar to prior kidney stones. Versus nausea and vomiting as well. Symptoms have been ongoing for 2 days. Also is having nausea and vomiting with it. Has dysuria as well. Presents for further evaluation at this time. Multiple abdominal surgeries in her past. (Chemo Markham) - Related Data Home Medications Medication Instructions Recorded Confirmed HYDROcodone/APAP 7.5-325MG [[place] 1 tab PO Q6H PRN 11/30/23 11/30/23 7.5-325] Losartan [Cozaar] 12.5 mg PO DAILY 11/30/23 11/30/23 Previous Rx's Medication Instructions Recorded Ondansetron Odt [Zofran Odt] 4 mg PO Q8HR PRN #10 tab 09/24/23 Allergies Allergy/AdvReac Type Severity Reaction Status Date / Time metoclopramide [From Reglan] AdvReac Mild Rapid Verified 04/08/24 17:29 Heart Rate & Shortness of Breath morphine AdvReac Unknown Verified 04/08/24 17:29 prochlorperazine maleate AdvReac Rapid Verified 04/08/24 17:29 [From Compazine] Heart Rate & Shortness of Breath Review of Systems ROS Other: All systems not noted in ROS Statement are negative. <Henny Gil - Last Filed: 06/05/24 18:56> ROS Other: All systems not noted in ROS Statement are negative. <Elias Lino - Last Filed: 06/05/24 23:15> ROS Other: All systems not noted in ROS Statement are negative. <Chemo Markham - Last Filed: 06/07/24 00:29> ROS Statement: Those systems with pertinent positive or pertinent negative responses have been documented in the HPI. Review of Systems: CONST: Denies fever EYES: Denies blurry vision ENT: Denies nasal congestion C/V: Denies Chest pain RESP: Denies shortness of breath GI: Endorses abdominal pain : Denies dysuria SKIN: Denies rash. MSK: Denies joint pain. NEURO: Denies headache (Chemo Markham) Past Medical History Past Medical History: Renal Disease Additional Past Medical History / Comment(s): COLITIS, uti's, kidney infections, interstitial cystitis, kidney stones, RECTAL BLEEDING, cronhs,. covid 02/01 History of Any Multi-Drug Resistant Organisms: None Reported Past Surgical History: Appendectomy, Cholecystectomy, Hysterectomy, Tubal Li gation Additional Past Surgical History / Comment(s): novasure ENDOMETRIAL ABLATION, COLONOSCOPY Past Anesthesia/Blood Transfusion Reactions: No Reported Reaction Past Psychological History: No Psychological Hx Reported Smoking Status: Never smoker Past Alcohol Use History: None Reported Past Drug Use History: None Reported - Past Family History Father Family Medical History: No Reported History Mother Family Medical History: Cancer Additional Family Medical History / Comment(s): COLON CANCER <Henny Gil - Last Filed: 06/05/24 18:56> General Exam Limitations: no limitations <Henny Gil - Last Filed: 06/05/24 18:56> <Chemo Markham - Last Filed: 06/07/24 00:29> - General Exam Comments Initial Comments: Visual Physical Exam Vital signs reviewed General: Well-appearing, nontoxic, no acute distress. Head: Normocephalic, atraumatic Eyes: PERRLA, EOMI ENT: Airway patent Chest: Nonlabored breathing Skin: No visual rash, normal skin tone Neuro: Alert and oriented 3 Musculoskeletal: No gross abnormalities (Henny Gil) General: Appears in mild to moderate distress secondary to abdominal pain. HEAD: Normal with no signs of head trauma. EYES: EOMI ENT: Hearing grossly intact RESPIRATORY: Clear breath sounds bilaterally. No wheezes, rales, or rhonchi. C/V: Regular rate and rhythm. S1 and S2 auscultated, no edema, peripheral pulses 2+ and intact throughout ABD: Abdomen soft, nondistended. Tender palpation of the left flank. No guarding or rebound tenderness. Mild CVA tenderness to percussion on the left. EXT: No obvious deformity SKIN: No rashes or lesions observed on exposed skin. NEURO: Alert and oriented x 4. (Chemo Markham) Course Vital Signs 06/05/24 06/05/24 06/05/24 18:09 19:41 23:00 Temperature 97.9 F 99.3 F 98.9 F Pulse Rate 94 101 H 89 Respiratory 18 18 18 Rate Blood Pressure 122/81 118/78 116/76 O2 Sat by Pulse 100 97 97 Oximetry 06/05/24 23:34 Temperature 98.8 F Pulse Rate 95 Respiratory 18 Rate Blood Pressure 107/68 O2 Sat by Pulse 98 Oximetry Medical Decision Making <Henny Gil - Last Filed: 06/05/24 18:56> - Lab Data Result diagrams: 06/05/24 20:02 06/05/24 21:16 <Elias Lino - Last Filed: 06/05/24 23:15> - Lab Data Result diagrams: 06/05/24 20:02 06/05/24 21:16 <Chemo Markham - Last Filed: 06/07/24 00:29> - Medical Decision Making I completed the quick note portion of this chart signed Henny Gil PA-C (Henny Gil) Was pt. sent in by a medical professional or institution (PHYLLIS Burnett, GROUNDMAN, urgent care, hospital, or care home...) When possible be specific @ -No Did you speak to anyone other than the patient for history (EMS, parent, family, police, friend...)? What history was obtained from this source @ -No Did you review nursing and triage notes (agree or disagree)? Why? @ -I reviewed and agree with nursing and triage notes Were old charts reviewed (outside hosp., previous admission, EMS record, old EKG, old radiological studies, urgent care reports/EKG's, care home records)? Report findings @ -No old charts were reviewed Differential Diagnosis (chest pain, altered mental status, abdominal pain women, abdominal pain men, vaginal bleeding, weakness, fever, dyspnea, syncope, headache, dizziness, GI bleed, back pain, seizure, CVA, palpatations, mental health, musculoskeletal)? @ -Differential Abdominal Pain Women: Appendicitis, Cholecystitis, diverticulosis, ischemic bowel, pancreatitis, hepatitis, UTI, gastroenteritis, AAA, incarcerated hernia, bowel obstruction, constipation, inflammatory bowel, hepatitis, peptic ulcer disease, splenic infarction, perforated viscus, vulvitis, ovarian torsion, PID, kidney stone, placenta abruption, this is not meant to be an all-inclusive list EKG interpreted by me (3pts min.). @ -None done X-rays interpreted by me (1pt min.). @ -None done CT interpreted by me (1pt min.). @ -Pending U/S interpreted by me (1pt. min.). @ -None done What testing was considered but not performed or refused? (CT, X-rays, U/S, labs)? Why? @ -None What meds were considered but not given or refused? Why? @ -None Did you discuss the management of the patient with other professionals (professionals i.e. , PA, GROUNDMAN, lab, RT, psych nurse, social media assistant, flight hostess, teacher, telecommunications officer, case loader operator)? Give summary @ -No Was smoking cessation discussed for >3mins.? @ -No Was critical care preformed (if so, how long)? @ -No Were there social determinants of health that impacted care today? How? (Homelessness, low income, unemployed, alcoholism, drug addiction, transportation, low edu. Level, literacy, decrease access to med. care, fpc, rehab)? @ -No Was there de-escalation of care discussed even if they declined (Discuss DNR or withdrawal of care, Hospice)? DNR status @ -No What co-morbidities impacted this encounter? (DM, HTN, Smoking, COPD, CAD, Cancer, CVA, ARF, Chemo, Hep., AIDS, mental health diagnosis, sleep apnea, morbid obesity)? @ -Prior kidney stone Was patient admitted / discharged? Hospital course, mention meds given and route, prescriptions, significant lab abnormalities, going to OR and other pertinent info. @ -Patient presents with left flank pain nausea and vomiting suspicious for kidney stones. We will obtain abdominal labs, urine studies as well as a CT abdomen pelvis without contrast. She will be symptomatically treated with IV fluids, analgesia medications, nausea meds. She was in agreement this plan. Vital signs are currently within acceptable limits. Oratory studies returned remarkable for mild leukocytosis of 11.1. Mild hyperkalemia but hemolyzed specimen 5.6. Repeat ordered. No other obvious finding. Urinalysis clean. At this time is the enema shift. Signed out to Dr. Lino pending results of repeat potassium as well as CT. Undiagnosed new problem with uncertain prognosis? @ -No Drug Therapy requiring intensive monitoring for toxicity (Heparin, Nitro, Insulin, Cardizem)? @ -No Were any procedures done? @ -No (Chemo Markham) - Lab Data Lab Results 06/05/24 06/05/24 06/05/24 Range/Units 19:45 20:02 20:02 WBC 11.1 H (3.8-10.6) k/uL RBC 4.06 (3.80-5.40) m/uL Hgb 12.8 (11.4-16.0) gm/dL Hct 38.7 (34.0-46.0) % MCV 95.4 (80.0-100.0) fL MCH 31.5 (25.0-35.0) pg MCHC 33.0 (31.0-37.0) g/dL RDW 11.7 (11.5-15.5) % Plt Count 436 (150-450) k/uL MPV 6.7 Neutrophils % 64 % Lymphocytes % 27 % Monocytes % 4 % Eosinophils % 3 % Basophils % 0 % Neutrophils # 7.1 (1.3-7.7) k/uL Lymphocytes # 3.0 (1.0-4.8) k/uL Monocytes # 0.4 (0-1.0) k/uL Eosinophils # 0.3 (0-0.7) k/uL Basophils # 0.0 (0-0.2) k/uL Sodium 136 L (137-145) mmol/L Potassium 5.6 H (3.5-5.1) mmol/L Chloride 106 (98-107) mmol/L Carbon Dioxide 20 L (22-30) mmol/L Anion Gap 10 mmol/L BUN 8 (7-17) mg/dL Creatinine 0.55 (0.52-1.04) mg/dL Est GFR (CKD-EPI)AfAm >90 (>60 ml/min/1.73 sqM) Est GFR (CKD-EPI)NonAf >90 (>60 ml/min/1.73 sqM) Glucose 77 (74-99) mg/dL Calcium 8.4 (8.4-10.2) mg/dL Total Bilirubin 0.9 (0.2-1.3) mg/dL AST 38 H (14-36) U/L ALT 26 (4-34) U/L Alkaline Phosphatase 36 L (38-126) U/L Total Protein 7.2 (6.3-8.2) g/dL Albumin 4.3 (3.5-5.0) g/dL Amylase 90 (30-110) U/L Lipase 59 (23-300) U/L Urine Color Colorless Urine Appearance Clear (Clear) Urine pH 6.0 (5.0-8.0) Ur Specific [place] 1.007 (1.001-1.035) Urine Protein Negative (Negative) Urine Glucose (UA) Negative (Negative) Urine Ketones Negative (Negative) Urine Blood Negative (Negative) Urine Nitrite Negative (Negative) Urine Bilirubin Negative (Negative) Urine Urobilinogen <2.0 (<2.0) mg/dL Ur Leukocyte Esterase Negative (Negative) 06/05/24 Range/Units 21:16 WBC (3.8-10.6) k/uL RBC (3.80-5.40) m/uL Hgb (11.4-16.0) gm/dL Hct (34.0-46.0) % MCV (80.0-100.0) fL MCH (25.0-35.0) pg MCHC (31.0-37.0) g/dL RDW (11.5-15.5) % Plt Count (150-450) k/uL MPV Neutrophils % % Lymphocytes % % Monocytes % % Eosinophils % % Basophils % % Neutrophils # (1.3-7.7) k/uL Lymphocytes # (1.0-4.8) k/uL Monocytes # (0-1.0) k/uL Eosinophils # (0-0.7) k/uL Basophils # (0-0.2) k/uL Sodium (137-145) mmol/L Potassium 4.4 (3.5-5.1) mmol/L Chloride (98-107) mmol/L Carbon Dioxide (22-30) mmol/L Anion Gap mmol/L BUN (7-17) mg/dL Creatinine (0.52-1.04) mg/dL Est GFR (CKD-EPI)AfAm (>60 ml/min/1.73 sqM) Est GFR (CKD-EPI)NonAf (>60 ml/min/1.73 sqM) Glucose (74-99) mg/dL Calcium (8.4-10.2) mg/dL Total Bilirubin (0.2-1.3) mg/dL AST (14-36) U/L ALT (4-34) U/L Alkaline Phosphatase (38-126) U/L Total Protein (6.3-8.2) g/dL Albumin (3.5-5.0) g/dL Amylase (30-110) U/L Lipase (23-300) U/L Urine Color Urine Appearance (Clear) Urine pH (5.0-8.0) Ur Specific [place] (1.001-1.035) Urine Protein (Negative) Urine Glucose (UA) (Negative) Urine Ketones (Negative) Urine Blood (Negative) Urine Nitrite (Negative) Urine Bilirubin (Negative) Urine Urobilinogen (<2.0) mg/dL Ur Leukocyte Esterase (Negative) Disposition <Henny Gil - Last Filed: 06/05/24 18:56> Is patient prescribed a controlled substance at d/c from ED?: No <Elias Lino - Last Filed: 06/05/24 23:15> Is patient prescribed a controlled substance at d/c from ED?: No <Chemo Markham - Last Filed: 06/07/24 00:29> Clinical Impression: Abdominal pain Disposition: HOME SELF-CARE Condition: Good Instructions (If sedation given, give patient instructions): Abdominal Pain (ED) Referrals: Armando Willams MD [Primary Care Provider] - 1-2 days
[2024-06-05 19:57] LABS: Appearance,Urine Clear (Clear); Bilirubin,Urine Negative (Negative); Blood,Urine Negative (Negative); Color,Urine Colorless; Glucose,Urine (UA) Negative (Negative); Ketones,Urine Negative (Negative); Leukocyte Esterase,Urine Negative (Negative); Nitrite,Urine Negative (Negative); Protein,Urine Negative (Negative); Specific Gravity,Urine 1.007 (1.001-1.035); Urobilinogen,Urine <2.0 mg/dL (<2.0)
[2024-06-05] MEDS: SODIUM CHLORIDE 0.9% 1,000 ML IV ONE ×2 (20:05→22:19)
[2024-06-05] MEDS: ONDANSETRON 4 MG/2 ML VIAL IVP STA (20:06)
[2024-06-05] MEDS: HYDROmorphone 1 MG/ML 1 ML SYRINGE IVP STA (20:07)
[2024-06-05] MEDS: KETOROLAC 15 MG/ML 1 ML VIAL IVP STA (20:07)
[2024-06-05] MEDS: PANTOPRAZOLE 40 MG/10 ML VIAL IVP STA (20:08)
[2024-06-05 20:12] LABS: Basophils % (A) 0 %; Eosinophils # (A) 0.3 k/uL (0-0.7); Eosinophils % (A) 3 %; HCT 38.7 % (34.0-46.0); HGB 12.8 gm/dL (11.4-16.0); Lymphocytes % (A) 27 %; MCH 31.5 pg (25.0-35.0); MCV 95.4 fL (80.0-100.0); Mean Platelet Volume 6.7; Monocytes # (A) 0.4 k/uL (0-1.0); Monocytes % (A) 4 %; Neutrophils # (A) 7.1 k/uL (1.3-7.7); Neutrophils % (A) 64 %; Platelet Count 436 k/uL (150-450); RBC 4.06 m/uL (3.80-5.40); RDW 11.7 % (11.5-15.5); WBC 11.1 k/uL (3.8-10.6)
[2024-06-05 20:22] LABS: ALT 26 U/L (4-34); African American GFR (CKD) >90 (>60 ml/min/1.73 sqM); Amylase 90 U/L (30-110); Anion Gap 10 mmol/L; Blood Urea Nitrogen 8 mg/dL (7-17); Calcium 8.4 mg/dL (8.4-10.2); Carbon Dioxide 20 mmol/L (22-30); Chloride 106 mmol/L (98-107); Lipase 59 U/L (23-300); Non-African American GFR(CKD) >90 (>60 ml/min/1.73 sqM); Sodium 136 mmol/L (137-145)
[2024-06-05 20:27] LABS: Glucose 77 mg/dL (74-99)
[2024-06-05 20:28] LABS: AST 38 U/L (14-36); Albumin 4.3 g/dL (3.5-5.0); Alkaline Phosphatase 36 U/L (38-126); Potassium 5.6 mmol/L (3.5-5.1); Total Bilirubin 0.9 mg/dL (0.2-1.3); Total Protein 7.2 g/dL (6.3-8.2)
--- NOTE | 2024-06-05 21:30 | CT ---
EXAMINATION TYPE: CT abdomen pelvis wo con DATE OF EXAM: 06/05/2024 9:01 PM COMPARISON: CT abdomen pelvis most recent from CLINICAL INDICATION: Female, 39 years old with history of abdominal pain. left flank; Pt c/o nausea a nd vomiting, pain with urination TECHNIQUE: Axial CT abdomen pelvis wo con;Sagittal and coronal reformats were created on a separate workstation. Contrast used: mL of , (none if empty) Oral contrast used: without Oral Contrast (none if empty) CT DLP: 520.4 mGycm, Automated exposure control for dose reduction was used. FINDINGS: LOWER CHEST: Unremarkable ABDOMEN LIVER: Unremarkable GALLBLADDER AND BILE DUCTS: The gallbladder is surgically absent. PANCREAS: Unremarkable. SPLEEN: Unremarkable. ADRENAL GLANDS: Unremarkable. KIDNEYS AND URETERS: No evidence of hydronephrosis or renal calculus. The ureters are unremarkable. PELVIS BLADDER: No evidence for wall thickening or mass given limitations of exam. REPRODUCTIVE: The uterus is surgically absent. ABDOMEN & PELVIS STOMACH AND BOWEL: No evidence of bowel obstruction. Large stool in the colon from the cecum to the d escending colon. PERITONEUM/RETROPERITONEUM: No evidence of pneumoperitoneum or free fluid. VASCULATURE: No evidence of aortic aneurysm. MUSCULOSKELETAL: No acute osseous abnormalities LYMPH NODES: No gross evidence for lymphadenopathy. SOFT TISSUE/ABDOMINAL WALL: Unremarkable IMPRESSION: 1. No evidence for acute process. Urinary bladder is grossly unremarkable. No obstructive uropathy i dentified. No evidence for bowel obstruction. 2. Large Amount stool from the cecum to the descending colon. [facility], , 06/05/2024 9:28 PM
[2024-06-05] MEDS: DICYCLOMINE 10 MG/ML 2 ML AMP IM STA (23:30)
[2024-06-05] MEDS: MAGNESIUM CITRATE 296 ML BOTTLE PO ONE (23:30)
[2024-06-05 23:37] VITALS: BP 107/68; PULSE 95; TEMP 98.8
== END 2024-06-05 23:44 | disposition home or self-care (01) ==
LOC: EC 18:07
DX: R10.9 Unspecified abdominal pain (principal); Z87.442 Personal history of urinary calculi; Z88.8 Allergy status to other drugs, medicaments and biological substances; Z88.5 Allergy status to narcotic agent
CPT/HCPCS: 36415; 80053; 82150; 83690; 84132; 85025; 81003; 74176; 99284; 96374; 96375 ×3; 96361 ×2; J2405; J1171; J1885; J2470

== ENCOUNTER 2024-07-17 15:38 | Observation (INO) | payer OTHER ==
[2024-07-17 16:26] LABS: Basophils # (A) 0.05 10*3/uL (0.00-0.10); Basophils % (A) 0.5 %; Eosinophils # (A) 0.18 10*3/uL (0.04-0.35); Eosinophils % (A) 1.8 %; HCT 37.7 % (37.2-46.3); HGB 13.3 g/dL (12.0-15.0); Lymphocytes # (A) 3.84 10*3/uL (0.90-5.00); Lymphocytes % (A) 37.5 %; MCH 32.9 pg (27.0-32.0); MCHC 35.3 g/dL (32.0-37.0); MCV 93.3 fL (80.0-97.0); Mean Platelet Volume 8.6 fL (9.5-12.2); Monocytes % (A) 7.8 %; Neutrophils # (A) 5.33 10*3/uL (1.80-7.70); Neutrophils % (A) 52.1 %; Platelet Count 371 10*3/uL (140-440); RBC 4.04 10*6/uL (4.10-5.20); RDW 11.9 % (11.5-14.5); WBC 10.23 10*3/uL (4.50-10.00)
--- NOTE | 2024-07-17 16:30 | ED ---
General Adult HPI - General Chief complaint: Abdominal Pain Stated complaint: vomiting,abd pain Time Seen by Provider: 07/17/24 15:53 Source: patient Mode of arrival: ambulatory Limitations: no limitations - History of Present Illness Initial comments: Patient is a 39-year-old female past medical history of recurrent kidney stones kidney infections presenting today for nausea, vomiting, diarrhea and left flank pain. Patient states that episodes of diarrhea began about 3 days ago. States she has had multiple loose stools that are greenish in color for the last 3 days. Denies melanotic or bloody stools. This morning she began having episodes of emesis and stated she started having left-sided abdominal pain with episodes of emesis. Emesis is nonbloody nonbilious. She has not had any fevers but endorses chills. No medications prior to arrival. Has had a prior hysterectomy so does not think she be . Denies chest pain, shortness of breath, hematuria. Endorses dysuria and urinary frequency. Denies vaginal discharge. Denies lightheadedness or dizziness. - Related Data Home Medications Medication Instructions Recorded Confirmed HYDROcodone/APAP 7.5-325MG [[place] 1 tab PO Q12H PRN 11/30/23 07/17/24 7.5-325] Albuterol Sulfate [Ventolin HFA] 2 puff INHALATION RT-DAILY 07/17/24 07/17/24 Amitriptyline HCl [Elavil] 50 mg PO HS 07/17/24 07/17/24 Cholecalciferol [Vitamin D3 (25 50 mcg PO DAILY 07/17/24 07/17/24 Mcg = 1000 Iu)] Cyclobenzaprine [Flexeril] 10 mg PO TID PRN 07/17/24 07/17/24 Dicyclomine [Bentyl] 10 mg PO TID 07/17/24 07/17/24 Docusate [Colace] 100 mg PO QID PRN 07/17/24 07/17/24 Gabapentin 300 mg PO BID 07/17/24 07/17/24 Linaclotide [Linzess] 145 mcg PO DAILY PRN 07/17/24 07/17/24 Pantoprazole [Protonix] 40 mg PO BID 07/17/24 07/17/24 buPROPion XL [Wellbutrin XL] 150 mg PO DAILY 07/17/24 07/17/24 Previous Rx's Medication Instructions Recorded Ondansetron Odt [Zofran Odt] 4 mg PO Q8HR PRN #10 tab 09/24/23 Allergies Allergy/AdvReac Type Severity Reaction Status Date / Time metoclopramide [From Reglan] AdvReac Mild Rapid Verified 07/17/24 19:19 Heart Rate & Shortness of Breath morphine AdvReac Abdominal Verified 07/17/24 19:19 Pain prochlorperazine maleate AdvReac Rapid Verified 07/17/24 19:19 [From Compazine] Heart Rate & Shortness of Breath Review of Systems ROS Statement: Those systems with pertinent positive or pertinent negative responses have been documented in the HPI. ROS Other: All systems not noted in ROS Statement are negative. Past Medical History Past Medical History: Renal Disease Additional Past Medical History / Comment(s): COLITIS, uti's, kidney infec tions, interstitial cystitis, kidney stones, RECTAL BLEEDING, cronhs,. covid 02/01 History of Any Multi-Drug Resistant Organisms: None Reported Past Surgical History: Appendectomy, Cholecystectomy, Hysterectomy, Tubal Ligation Additional Past Surgical History / Comment(s): novasure ENDOMETRIAL ABLATION, COLONOSCOPY Past Anesthesia/Blood Transfusion Reactions: No Reported Reaction Past Psychological History: No Psychological Hx Reported Smoking Status: Never smoker Past Alcohol Use History: None Reported Past Drug Use History: None Reported - Past Family History Father Family Medical History: No Reported History Mother Family Medical History: Cancer Additional Family Medical History / Comment(s): COLON CANCER General Exam - General Exam Comments Initial Comments: PE: CONSTITUTIONAL: No apparent distress, well appearing SKIN: Warm, dry, no jaundice, hives or petechiae EYES: Pupils are equally round, extraocular movements intact without nystagmus, clear conjunctiva, non-icteric sclera HENT: Normocephalic, atraumatic, moist mucus membranes, oropharynx clear without exudates NECK: , Full range of motion, normal appearance PULMONARY: Clear to auscultation without wheezes, rhonchi, or rales, normal excursion, no accessory muscle use and no stridor CARDIOVASCULAR: Regular rate, rhythm, normal S1 and S2. No appreciated murmurs, rubs or gallops. Strong radial pulses with intact distal perfusion. No lower extremity edema GASTROINTESTINAL: Soft, active bowel sounds throughout, epigastric and left lower quadrant tenderness to palpation, left CVA tenderness, guarding with palpation to left lower quadrant-tender, non-distended, no palpable masses, no rebound No hepatosplenomegaly GENITOURINARY: MUSCULOSKELETAL: Extremities have no gross deformity, no edema, redness, or swelling. No calf swelling NEUROLOGIC:_a/o x 3, GCS 15, normal mentation and speech. Moves all extremities x 4 without motor or sensory deficit PSYCHIATRIC:_normal mood and affect, thought process is clear and linear Limitations: no limitations Course Vital Signs 07/17/24 07/17/24 15:39 22:00 Temperature 98.2 F Pulse Rate 95 90 Respiratory 16 16 Rate Blood Pressure 118/69 115/75 O2 Sat by Pulse 100 93 L Oximetry Medical Decision Making - Medical Decision Making Patient had a CT abdomen pelvis without contrast performed on 06/05/2024 when she had presented for left flank pain, showed no evidence of acute process and a large amount of stool in the cecum Was pt. sent in by a medical professional or institution (, PA, TRANSFERRER, urgent care, hospital, or assisted...) When possible be specific @ -No Did you speak to anyone other than the patient for history (EMS, parent, family, police, friend...)? What history was obtained from this source @ -No- Did you review nursing and triage notes (agree or disagree)? Why? @ -I reviewed and agree with nursing and triage notes Were old charts reviewed (outside hosp., previous admission, EMS record, old EKG, old radiological studies, urgent care reports/EKG's, assisted records)? Report findings @ -Medical records reviewed patient had a CT abdomen pelvis without contrast performed on 06/05/2024 when she had presented for left flank pain, showed no evidence of acute process and a large amount of stool in the cecum Differential Diagnosis (chest pain, altered mental status, abdominal pain women, abdominal pain men, vaginal bleeding, weakness, fever, dyspnea, syncope, headache, dizziness, GI bleed, back pain, seizure, CVA, palpatations, mental health, musculoskeletal)? @Differential Abdominal Pain Women: Appendicitis, Cholecystitis, diverticulosis, ischemic bowel, pancreatitis, hepatitis, UTI, gastroenteritis, AAA, incarcerated hernia, bowel obstruction, constipation, inflammatory bowel, hepatitis, peptic ulcer disease, splenic infarction, perforated viscus, vulvitis, ovarian torsion, PID, kidney stone, this is not meant to be an all-inclusive list EKG interpreted by me (3pts min.). @ -As above X-rays interpreted by me (1pt min.). @ -None done CT interpreted by me (1pt min.). @ -Personally reviewed CT abdomen pelvis, acute evidence of obstruction, no hydronephrosis,Read by radiologist as a soft tissue density with central air in the mid pelvis, differential diagnosis could include phlegmon, diverticular a bscess or neoplasm U/S interpreted by me (1pt. min.). @ No masses noted on ultrasound of pelvis, radiologist notes no suspicious ultrasound mass identified to correlate with CT findings, mildly irregular complex cyst of the right ovary with follow-up ultrasound recommended What testing was considered but not performed or refused? (CT, X-rays, U/S, labs)? Why? @ -None What meds were considered but not given or refused? Why? @ -None Did you discuss the management of the patient with other professionals (professionals i.e. , PA, TRANSFERRER, lab, RT, psych nurse, social research assistant, internet manager, teacher, police commanding officer, case worker)? Give summary @Case was discussed with Dr. Ardon, will remain on his consult recommends admission to medicine Was smoking cessation discussed for >3mins.? @ -No Was critical care preformed (if so, how long)? @ -No Were there social determinants of health that impacted care today? How? (Homelessness, low income, unemployed, alcoholism, drug addiction, transportation, low edu. Level, literacy, decrease access to med. care, snf, rehab)? @ -No Was there de-escalation of care discussed even if they declined (Discuss DNR or withdrawal of care, Hospice)? @ -No What co-morbidities impacted this encounter? (DM, HTN, Smoking, COPD, CAD, Cancer, CVA, ARF, Chemo, Hep., AIDS, mental health diagnosis, sleep apnea, morbid obesity)? @ -None Was patient admitted / discharged? Hospital course, mention meds given and route, prescriptions, significant lab abnormalities, going to OR and other pertinent info. @ -Patient -this is a pleasant 39-year-old female presenting today for left- sided abdominal pain, nausea vomiting and diarrhea. Patient afebrile, vital signs stable on arrival. Exam significant for left flank pain left lower quadrant pain and epigastric pain to palpation. Discussed with patient plan for CT, urinalysis, comprehensive labs IV fluids, Imodium antinausea medication and pain medications. Patient agreeable with plan of care. Reviewed labs, kidney function within normal limits, showed moderate blood, 8 red cells, rare bacteria negative nitrates negative leukocyte esterase. CT scan read by radiologist as questionable soft tissue mass within the abdomen question possible abscess versus neoplasm. I discussed this with radiologist, Dr. You who is suspects possible diverticular abscess, though no drainable fluid collection noted. He recommends transvaginal ultrasound to evaluate more closely. Updated pt who is agreeable with POC. Ordered rocpehin and flagyl to cover for abscess. Ultrasound showed complex right ovarian cyst otherwise abscess noted on CT was not visualized. Discussed patient Dr. Ardon who will remain on consult. Updated pt to findings and plan of care. Case was discussed with Dr. Willams who kindly excepted patient for admission. Undiagnosed new problem with uncertain prognosis? @ -No Drug Therapy requiring intensive monitoring for toxicity (Heparin, Nitro, Insulin, Cardizem)? @ -No Were any procedures done? @ -No Diagnosis/symptom? @ -Diverticular abscess, right ovarian cyst Acute, or Chronic, or Acute on Chronic? Acute Uncomplicated (without systemic symptoms) or Complicated (systemic symptoms)? Complicated Side effects of treatment? @ -No Exacerbation, Progression, or Severe Exacerbation? @ -No Poses a threat to life or bodily function? How? (Chest pain, [place], [place], pneumonia, PE, COPD, DKA, ARF, appy, cholecystitis, CVA, Diverticulitis, Homicidal, Suicidal, threat to staff... and all critical care pts) @Yes, if left untreated could lead to sepsis and septic shock - Lab Data Result diagrams: 07/17/24 16:22 07/17/24 16:22 Lab Results 07/17/24 07/17/24 07/17/24 Range/Units 16:22 16:22 16:22 WBC 10.23 H (4.50-10.00) 10*3/uL RBC 4.04 L (4.10-5.20) 10*6/uL Hgb 13.3 (12.0-15.0) g/dL Hct 37.7 (37.2-46.3) % MCV 93.3 (80.0-97.0) fL MCH 32.9 H (27.0-32.0) pg MCHC 35.3 (32.0-37.0) g/dL Plt Count 371 (140-440) 10*3/uL MPV 8.6 L (9.5-12.2) fL Immature Gran % (Auto) 0.3 % Neutrophils % 52.1 % Lymphocytes % 37.5 % Monocytes % 7.8 % Eosinophils % 1.8 % Basophils % 0.5 % Immature Gran # 0.03 (0.00-0.04) 10*3/uL Neutrophils # 5.33 (1.80-7.70) 10*3/uL Lymphocytes # 3.84 (0.90-5.00) 10*3/uL Monocytes # 0.80 (0.20-1.00) 10*3/uL Eosinophils # 0.18 (0.04-0.35) 10*3/uL Basophils # 0.05 (0.00-0.10) 10*3/uL PT 10.4 (10.0-12.5) sec INR 0.9 (<1.2) APTT 26.9 (22.0-30.0) sec Sodium 137 (137-145) mmol/L Potassium 4.2 (3.5-5.1) mmol/L Chloride 102 (98-107) mmol/L Carbon Dioxide 26 (22-30) mmol/L Anion Gap 9 mmol/L BUN 9 (7-17) mg/dL Creatinine 0.59 (0.52-1.04) mg/dL Est GFR (CKD-EPI)AfAm >90 (>60 ml/min/1.73 sqM) Est GFR (CKD-EPI)NonAf >90 (>60 ml/min/1.73 sqM) Glucose 80 (74-99) mg/dL Calcium 10.1 (8.4-10.2) mg/dL Total Bilirubin 0.5 (0.2-1.3) mg/dL AST 23 (14-36) U/L ALT 16 (4-34) U/L Alkaline Phosphatase 64 (38-126) U/L Total Protein 8.0 (6.3-8.2) g/dL Albumin 4.9 (3.5-5.0) g/dL Amylase 94 (30-110) U/L Lipase 221 (23-300) U/L Urine Color Urine Appearance (Clear) Urine pH (5.0-8.0) Ur Specific [place] (1.001-1.035) Urine Protein (Negative) Urine Glucose (UA) (Negative) Urine Ketones (Negative) Urine Blood (Negative) Urine Nitrite (Negative) Urine Bilirubin (Negative) Urine Urobilinogen (<2.0) mg/dL Ur Leukocyte Esterase (Negative) Urine RBC (0-5) /hpf Urine WBC (0-5) /hpf Ur Squamous Epith Cells (0-4) /hpf Urine Bacteria (None) /hpf Hyaline Casts (0-2) /lpf Urine Mucus (None) /hpf 07/17/24 Range/Units 16:22 WBC (4.50-10.00) 10*3/uL RBC (4.10-5.20) 10*6/uL Hgb (12.0-15.0) g/dL Hct (37.2-46.3) % MCV (80.0-97.0) fL MCH (27.0-32.0) pg MCHC (32.0-37.0) g/dL Plt Count (140-440) 10*3/uL MPV (9.5-12.2) fL Immature Gran % (Auto) % Neutrophils % % Lymphocytes % % Monocytes % % Eosinophils % % Basophils % % Immature Gran # (0.00-0.04) 10*3/uL Neutrophils # (1.80-7.70) 10*3/uL Lymphocytes # (0.90-5.00) 10*3/uL Monocytes # (0.20-1.00) 10*3/uL Eosinophils # (0.04-0.35) 10*3/uL Basophils # (0.00-0.10) 10*3/uL PT (10.0-12.5) sec INR (<1.2) APTT (22.0-30.0) sec Sodium (137-145) mmol/L Potassium (3.5-5.1) mmol/L Chloride (98-107) mmol/L Carbon Dioxide (22-30) mmol/L Anion Gap mmol/L BUN (7-17) mg/dL Creatinine (0.52-1.04) mg/dL Est GFR (CKD-EPI)AfAm (>60 ml/min/1.73 sqM) Est GFR (CKD-EPI)NonAf (>60 ml/min/1.73 sqM) Glucose (74-99) mg/dL Calcium (8.4-10.2) mg/dL Total Bilirubin (0.2-1.3) mg/dL AST (14-36) U/L ALT (4-34) U/L Alkaline Phosphatase (38-126) U/L Total Protein (6.3-8.2) g/dL Albumin (3.5-5.0) g/dL Amylase (30-110) U/L Lipase (23-300) U/L Urine Color Yellow Urine Appearance Cloudy H (Clear) Urine pH 5.5 (5.0-8.0) Ur Specific [place] 1.028 (1.001-1.035) Urine Protein Negative (Negative) Urine Glucose (UA) Negative (Negative) Urine Ketones Negative (Negative) Urine Blood Moderate H (Negative) Urine Nitrite Negative (Negative) Urine Bilirubin Negative (Negative) Urine Urobilinogen <2.0 (<2.0) mg/dL Ur Leukocyte Esterase Negative (Negative) Urine RBC 8 H (0-5) /hpf Urine WBC 2 (0-5) /hpf Ur Squamous Epith Cells 4 (0-4) /hpf Urine Bacteria Rare H (None) /hpf Hyaline Casts 1 (0-2) /lpf Urine Mucus Occasional H (None) /hpf Disposition Clinical Impression: Intestinal diverticular abscess, Ovarian cyst Disposition: ADMITTED IP TO THIS HOSP Condition: Stable
[2024-07-17] MEDS: ONDANSETRON 4 MG/2 ML VIAL IVP STA (16:35)
[2024-07-17] MEDS: SODIUM CHLORIDE 0.9% 1,000 ML IV ONE (16:35)
[2024-07-17] MEDS: KETOROLAC 15 MG/ML 1 ML VIAL IVP STA (16:36)
[2024-07-17] MEDS: HYDROmorphone 1 MG/ML 1 ML SYRINGE IVP STA ×2 (16:36→18:43)
[2024-07-17 16:38] LABS: INR 0.9 (<1.2); Partial Thromboplastin Time 26.9 sec (22.0-30.0); Prothrombin Time 10.4 sec (10.0-12.5)
[2024-07-17 16:41] LABS: ALT 16 U/L (4-34); AST 23 U/L (14-36); African American GFR (CKD) >90 (>60 ml/min/1.73 sqM); Albumin 4.9 g/dL (3.5-5.0); Alkaline Phosphatase 64 U/L (38-126); Amylase 94 U/L (30-110); Anion Gap 9 mmol/L; Blood Urea Nitrogen 9 mg/dL (7-17); Calcium 10.1 mg/dL (8.4-10.2); Carbon Dioxide 26 mmol/L (22-30); Chloride 102 mmol/L (98-107); Glucose 80 mg/dL (74-99); Lipase 221 U/L (23-300); Non-African American GFR(CKD) >90 (>60 ml/min/1.73 sqM); Potassium 4.2 mmol/L (3.5-5.1); Sodium 137 mmol/L (137-145); Total Bilirubin 0.5 mg/dL (0.2-1.3)
[2024-07-17 16:42] LABS: Appearance,Urine Cloudy (Clear); Bacteria,Urine Rare /hpf; Bilirubin,Urine Negative (Negative); Blood,Urine Moderate (Negative); Color,Urine Yellow; Glucose,Urine (UA) Negative (Negative); Hyaline Casts,Urine 1 /lpf (0-2); Ketones,Urine Negative (Negative); Leukocyte Esterase,Urine Negative (Negative); Mucus,Urine Occasional /hpf; Nitrite,Urine Negative (Negative); PH, Urine 5.5 (5.0-8.0); Protein,Urine Negative (Negative); RBC,Urine 8 /hpf (0-5); Specific Gravity,Urine 1.028 (1.001-1.035); Squamous Epithelial Cell,Urine 4 /hpf (0-4); Urobilinogen,Urine <2.0 mg/dL (<2.0); WBC,Urine 2 /hpf (0-5)
[2024-07-17] MEDS: ACETAMINOPHEN TAB 500 MG TAB PO STA (16:45)
[2024-07-17] MEDS: LOPERAMIDE 2 MG CAP PO STA (16:46)
[2024-07-17] MEDS: cefTRIAXone IN SWFI 1,000 MG/10 ML SYRINGE IVP STA (17:40)
--- NOTE | 2024-07-17 18:09 | CT ---
EXAMINATION TYPE: CT abdomen pelvis wo con DATE OF EXAM: 07/17/2024 5:32 PM COMPARISON: 06/05/2024 CLINICAL INDICATION: Female, 39 years old with history of left flank pain, LLQ abdominal pain, left f lank pian, nausea, vomiting diarrhea TECHNIQUE: Axial images were obtained from above the diaphragm to the pubic rami in the axial plane a t 5 mm thick sections. Reconstructed images are reviewed on the computer in the coronal plane. CONTRAST: mL of . Study performed without Oral Contrast DLP: 491.8 mGycm, Automated exposure control for dose reduction was used. FINDINGS: Limited CT sections are obtained the lung bases. The lung bases are clear. CT ABDOMEN: Liver: Normal Spleen: Normal Pancreas: Normal Adrenal glands: The adrenal glands are normal. Gallbladder: Normal Kidneys: No masses are evident. No hydronephrosis is present. No cysts are present. No renal stone s are evident. Aorta: Normal Inferior vena cava: Normal. CT PELVIS: Loops of bowel within the abdomen and pelvis are normal. Scattered diverticula are within the distal colon. There are loops of bowel which are incompletely distended or lack oral contrast limiting th eir evaluation. Appendix: Normal as visualized. Urinary bladder: Normal. Genitourinary structures: There is been a prior hysterectomy. In the expected region of the uterus majano perior to the sigmoid colon is a soft tissue density measuring 3.7 x 5.7 cm which has some central ai r. Direct communication with the underlying sigmoid colon is not identified. Differential diagnosis c ould include diverticular abscess, phlegmon. Neoplasm should be considered. This may be present on th e prior examination dated 06/05/2024. Osseous structures: No suspicious lytic or sclerotic lesions. IMPRESSION: 1. Soft tissue density with central air in the mid pelvis. Differential diagnosis could include phle gmon, diverticular abscess, neoplasm. Case was discussed with the emergency room physician at the filipe e of interpretation. [facility], Workstation: [facility], 07/17/2024 6:07 PM
[2024-07-17] MEDS: metroNIDAZOLE-NS PMX 500 MG in SALINE 1 100ML.BAG IVPB STA (18:42)
--- NOTE | 2024-07-17 20:00 | US ---
EXAMINATION TYPE: US transvaginal DATE OF EXAM: 07/17/2024 COMPARISON: CT: Today, US: 01/17/23 CLINICAL INDICATION: Female, 39 years old with history of soft tissue mass, poss abscess, on CT; poss ible abscess, hysterectomy TECHNIQUE: Transvaginal (TV). Doppler imaging: Color Doppler Images were obtained. Spectral doppler images were obtained. FINDINGS: Date of LMP: years ago EXAM MEASUREMENTS: Uterus: Surgically absent Right Ovary: 3.2 x 3.3 x 3.0 cm Left Ovary: 2.0 x 1.9 x 1.1 cm 1. Uterus: Surgically absent 2. Endometrium: Surgically absent 3. Right Ovary: complex area seen measuring 2.5 x 2.5 x 1.8cm 4. Left Ovary: wnl Spectral, color and waveform doppler imaging shows good arterial and venous flow within the ovaries ; there is no evidence for ovarian torsion. 5. Bilateral Adnexa: peristalsing bowel seen in bilateral adnexas 6. Posterior cul-de-sac: wnl No suspicious ultrasound mass identified to correlate with CT findings. Peristalsing bowel is evident during the exam. IMPRESSION: 1. Mildly irregular complex cyst right ovary. O-RADS 3. Follow-up ultrasound recommended 2. Mass correlating with the CT findings not evident. Peristalsing bowel is present in this exam. Mas s should be followed by CT. Diverticulosis and thickened bowel favored within the differential. Consi jhony follow-up by colonoscopy. O-RADS 2021 [email or web address] [facility], Workstation: [facility], 07/17/2024 7:57 PM
[2024-07-17] MEDS ORDERED: traMADol 50 MG TAB PO PRN (20:56)
[2024-07-17] MEDS ORDERED: ACETAMINOPHEN TAB 325 MG TAB PO PRN (20:56)
[2024-07-17] MEDS ORDERED: NALOXONE 0.4 MG/ML 1 ML VIAL IV PRN (20:56)
[2024-07-17] MEDS ORDERED: CYCLOBENZAPRINE 10 MG TAB PO PRN (20:58)
[2024-07-17] MEDS ORDERED: Linaclotide [Linzess] 145 MCG Capsule PO PRN (20:58)
[2024-07-17] MEDS ORDERED: DOCUSATE 100 MG CAP PO PRN (20:58)
[2024-07-17] MEDS: DICYCLOMINE 10 MG CAP PO SCH (21:49)
[2024-07-17] MEDS: AMITRIPTYLINE HCL 50 MG TAB PO SCH (21:49)
[2024-07-17] MEDS: GABAPENTIN 300 MG CAP PO SCH (21:49)
[2024-07-17] MEDS: HYDROmorphone 1 MG/ML 1 ML SYRINGE IVP PRN (21:50)
[2024-07-18] MEDS: ONDANSETRON 4 MG/2 ML VIAL IVP PRN (03:23)
[2024-07-18] MEDS: SODIUM CHLORIDE 0.9% 1,000 ML IV SCH (06:50)
[2024-07-18] MEDS: PANTOPRAZOLE 40 MG/10 ML VIAL IV SCH (08:46)
[2024-07-18] MEDS: CHOLECALCIFEROL 25 MCG (1000 IU) TABLET PO SCH (08:46)
[2024-07-18] MEDS: ALBUTEROL NEBULIZED 2.5 MG/3 ML INHALATION SCH (08:57)
[2024-07-18] MEDS: buPROPion XL 150 MG TAB.ER.24H PO SCH (10:16)
[2024-07-18] MEDS ORDERED: IOPAMIDOL CONTRAST (ORAL USE) VIAL PO PRN (11:03)
--- NOTE | 2024-07-18 14:23 | P.GSCN ---
History of Present Illness Consult date: 07/18/24 History of present illness: CHIEF COMPLAINT: Abdominal pain HISTORY OF PRESENT ILLNESS: This is a 39-year-old female who presented with nausea, vomiting, diarrhea and left flank pain x 4 days. Patient reports a decreased appetite. She reports initially symptoms started with a headache. She also reports urinary symptoms. Initially thought symptoms were due to a ki dney stone. She was having vomiting on Tuesday. She does have a known history of IBS and interstitial cystitis. She denies any prior history of diverticulitis. She reports her last colonoscopy and EGD was roughly 2 years ago reports no abnormality in the colonoscopy she did report some bleeding in the stomach lining on her prior EGD. Patient had a CT scan abdomen and pelvis completed that reported soft tissue density with central air in the mid pelvis. Differential diagnosis could include phlegmon, diverticular abscess or neoplasm. Transvaginal ultrasound was then completed and reported a mildly irregular complex cyst in the right ovary. BRANCH EXAMINER service on consult and surgical service wa s consulted for possible diverticular abscess. Patient's white count is normal. She is afebrile. Past surgical history does include appendectomy, cholecystectomy and hysterectomy. Patient reports a past history of a Corn extension of the bladder for her interstitial cystitis in July 2023 but no recent procedures done to the bladder. Patient does report prior history of colitis and enteritis. Patient reports no blood in the stools. PAST MEDICAL HISTORY: See below PAST SURGICAL HISTORY: See below MEDICATIONS: See below ALLERGIES: See below SOCIAL HISTORY: No illicit drug use. REVIEW OF SYSTEMS: CONSTITUTIONAL: Denies fever or chills. HEENT: Denies blurred vision, vision changes, or eye pain. Denies hemoptysis CARDIOVASCULAR: Denies chest pain or pressure. RESPIRATORY: No shortness of breath. GASTROINTESTINAL: See HPI for pertinent findings HEMATOLOGIC: Denies bleeding disorders. GENITOURINARY: Denies any blood in urine or increased urinary frequency. SKIN: Denies pruitis. Denies rash. PHYSICAL EXAM: VITAL SIGNS: Reviewed GENERAL: Well-developed in no acute distress. HEENT: No sclera icterus. Extraocular movements grossly intact. Moist buccal mucosa. Head is atraumatic, normocephalic. No nasal drainage. ABDOMEN: Soft. Nondistended. Tenderness with palpation left side of the abdomen and upper abdomen. Patient does have mild discomfort in the lower ab domen. NEUROLOGIC: Alert and oriented. Cranial nerves II through XII grossly intact. LABORATORY DATA: WBC is 10.3 Hgb 13.3 platelets 371 Sodium is 137 potassium is 4.2 creatinine 0.59 LFTs are normal Lipase 221 CEA is less than 2.0 IMAGING: CT scan abdomen pelvis soft tissue density with central air in the mid pelvis. Differential could include phlegmon, diverticular abscess, neoplasm. Transvaginal ultrasound reports mild irregular complex cyst right ovary. Mass correlating with the CT finding not evident. Peristalsing bowel is present in this exam. Mass should be followed by CT. Diverticulosis and thickened bowel favored within the differential. ASSESSMENT: 1. Abdominal pain mostly on the left side with nausea vomiting and diarrhea. CT scan reported a soft tissue density with central air in the mid pelvis. There were concerns for possible diverticular abscess, phlegmon or neoplasm. PLAN: - CT scan abdomen pelvis with oral, IV and rectal contrast ordered for further evaluation of patient's abdominal pain and soft tissue density noted on prior CT - Keep patient n.p.o. - Continue antibiotics - Continue IV fluids - Soapsuds enema ordered for rectal cleansing prior to the rectal contrast Physician Home Health Caregiver note has been reviewed by physician. Signing provider agrees with the documented findings, assessment, and plan of care. Attestation Patient seen and examined at bedside. Presented with chief complaint of abdominal pain mostly on the left side with nausea vomiting and diarrhea. She states that this has been worsening over the weekend started with a headache about [address] scan was performed of abdomen pelvis with finding of soft tissue density with central air in the mid pelvis. Unclear what this is in differential includes phlegmon, diverticular abscess or neoplasm. Plan is for repeat CT with oral, IV and rectal contrast for further evaluation as the original CT is not noted to have any contrast. Continue antibiotics and kenan nue n.p.o. for now. Mindy Ross DO Past Medical History Past Medical History: Renal Disease Additional Past Medical History / Comment(s): COLITIS, uti's, kidney infections, interstitial cystitis, kidney stones, RECTAL BLEEDING, cronhs,. covid 02/01 History of Any Multi-Drug Resistant Organisms: None Reported Past Surgical History: Appendectomy, Cholecystectomy, Hysterectomy, Tubal Ligation Additional Past Surgical History / Comment(s): novasure ENDOMETRIAL ABLATION, COLONOSCOPY Past Anesthesia/Blood Transfusion Reactions: No Reported Reaction Past Psychological History: No Psychological Hx Reported Smoking Status: Never smoker Past Alcohol Use History: None Reported Past Drug Use History: None Reported - Past Family History Father Family Medical History: No Reported History Mother Family Medical History: Cancer Additional Family Medical History / Comment(s): COLON CANCER Medications and Allergies Home Medications Medication Instructions Recorded Confirmed Type Ondansetron Odt [Zofran Odt] 4 mg PO Q8HR PRN #10 tab 09/24/23 07/17/24 Rx HYDROcodone/APAP 7.5-325MG [[place] 1 tab PO Q12H PRN 11/30/23 07/17/24 History 7.5-325] Albuterol Sulfate [Ventolin HFA] 2 puff INHALATION RT-DAILY 07/17/24 07/17/24 History Amitriptyline HCl [Elavil] 50 mg PO HS 07/17/24 07/17/24 History Cholecalciferol [Vitamin D3 (25 50 mcg PO DAILY 07/17/24 07/17/24 History Mcg = 1000 Iu)] Cyclobenzaprine [Flexeril] 10 mg PO TID PRN 07/17/24 07/17/24 History Dicyclomine [Bentyl] 10 mg PO TID 07/17/24 07/17/24 History Docusate [Colace] 100 mg PO QID PRN 07/17/24 07/17/24 History Gabapentin 300 mg PO BID 07/17/24 07/17/24 History Linaclotide [Linzess] 145 mcg PO DAILY PRN 07/17/24 07/17/24 History Pantoprazole [Protonix] 40 mg PO BID 07/17/24 07/17/24 History buPROPion XL [Wellbutrin XL] 150 mg PO DAILY 07/17/24 07/17/24 History Allergies Allergy/AdvReac Type Severity Reaction Status Date / Time metoclopramide [From Reglan] AdvReac Mild Rapid Verified 07/17/24 19:19 Heart Rate & Shortness of Breath morphine AdvReac Abdominal Verified 07/17/24 19:19 Pain prochlorperazine maleate AdvReac Rapid Verified 07/17/24 19:19 [From Compazine] Heart Rate & Shortness of Breath Surgical - Exam Osteopathic Statement: *. No significant issues noted on an osteopathic structural exam other than those noted in the History and Physical/Consult. Vital Signs Temp Pulse Resp BP Pulse Ox 98.2 F 95 16 118/69 100 07/17/24 15:39 07/17/24 15:39 07/17/24 15:39 07/17/24 15:39 07/17/24 15:39 Results - Labs 07/17/24 16:22 07/17/24 16:22 Abnormal Lab Results - Last 24 Hours (Table) 07/17/24 07/17/24 Range/Units 16:22 16:22 WBC 10.23 H (4.50-10.00) 10*3/uL RBC 4.04 L (4.10-5.20) 10*6/uL MCH 32.9 H (27.0-32.0) pg MPV 8.6 L (9.5-12.2) fL Urine Appearance Cloudy H (Clear) Urine Blood Moderate H (Negative) Urine RBC 8 H (0-5) /hpf Urine Bacteria Rare H (None) /hpf Urine Mucus Occasional H (None) /hpf Diabetes panel 07/17/24 Range/Units 16:22 Sodium 137 (137-145) mmol/L Potassium 4.2 (3.5-5.1) mmol/L Chloride 102 (98-107) mmol/L Carbon Dioxide 26 (22-30) mmol/L BUN 9 (7-17) mg/dL Creatinine 0.59 (0.52-1.04) mg/dL Glucose 80 (74-99) mg/dL Calcium 10.1 (8.4-10.2) mg/dL AST 23 (14-36) U/L ALT 16 (4-34) U/L Alkaline Phosphatase 64 (38-126) U/L Total Protein 8.0 (6.3-8.2) g/dL Albumin 4.9 (3.5-5.0) g/dL Calcium panel 07/17/24 Range/Units 16:22 Calcium 10.1 (8.4-10.2) mg/dL Albumin 4.9 (3.5-5.0) g/dL Pituitary panel 07/17/24 Range/Units 16:22 Sodium 137 (137-145) mmol/L Potassium 4.2 (3.5-5.1) mmol/L Chloride 102 (98-107) mmol/L Carbon Dioxide 26 (22-30) mmol/L BUN 9 (7-17) mg/dL Creatinine 0.59 (0.52-1.04) mg/dL Glucose 80 (74-99) mg/dL Calcium 10.1 (8.4-10.2) mg/dL Adrenal panel 07/17/24 Range/Units 16:22 Sodium 137 (137-145) mmol/L Potassium 4.2 (3.5-5.1) mmol/L Chloride 102 (98-107) mmol/L Carbon Dioxide 26 (22-30) mmol/L BUN 9 (7-17) mg/dL Creatinine 0.59 (0.52-1.04) mg/dL Glucose 80 (74-99) mg/dL Calcium 10.1 (8.4-10.2) mg/dL Total Bilirubin 0.5 (0.2-1.3) mg/dL AST 23 (14-36) U/L ALT 16 (4-34) U/L Alkaline Phosphatase 64 (38-126) U/L Total Protein 8.0 (6.3-8.2) g/dL Albumin 4.9 (3.5-5.0) g/dL
--- NOTE | 2024-07-18 14:51 | CT ---
EXAMINATION TYPE: CT abdomen pelvis without contrast. DATE OF EXAM: 07/18/2024 COMPARISON: 09/06/2023 CLINICAL INDICATION: Female, 39 years old with history of abdominal pain; PHH, abdominal pain TECHNIQUE: Performed with Oral Contrast and rectal contrast. IV contrast was not administered. Of Isovue 300. CT DLP: 758.[address] CTDI: mGy Automated exposure control for dose reduction was used. FINDINGS: The lung bases are clear. There is surgical absence of the gallbladder. There is no biliary ductal dilatation. There is no organomegaly involving the solid visceral organs of the upper abdomen. There is no renal calcification or hydronephrosis. The caliber the abdominal aorta is normal is no retroperitoneal adenopathy or hemorrhage. The bowel loops are normal in caliber and there is no evidence of dilatation or obstruction. No infla mmatory changes are identified in the bowel wall or mesentery. There is no free intraperitoneal air or fluid. There is surgical absence of uterus. No pelvic mass or adenopathy. The osseous structures and soft tissues are intact. IMPRESSION: No acute changes within the abdomen or pelvis. [facility], , 07/18/2024 2:48 PM
[2024-07-18 15:36] VITALS: BMI 25.0
[2024-07-18] MEDS: PIPERACILLIN-TAZOBACTAM 3.375 GM in SODIUM CHLORIDE 0.9% 100 ML IVPB SCH (15:46)
--- NOTE | 2024-07-18 22:28 | HP ---
HISTORY AND PHYSICAL HISTORY OF PRESENT ILLNESS: A 39-year-old white female came to hospital with left lower quadrant abdominal pain. CAT scan showed a possible abscess versus a mass not seen on ultrasound, but was on CAT scan. She has recurrent history of left lower quadrant pain. 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 She is long time smoker vapor and hysterectomy. She has recurrent UTIs and colitis in the past. She has severe urinary frequency. She has been admitted for many UTIs with pyelonephritis. Dr. Sood has consulted for surgery over the MRI of the abdomen. HOME MEDICINES: Reviewed, 1. Ventolin HFA. 2. Elavil 50 at night. 3. Flexeril p.r.n. 4. [place]berley p.r.n. 5. Symbicort 160/4.5 two puffs b.i.d. 6. Protonix 40 b.i.d. 7. Gabapentin 300 b.i.d. 8. Linzess 125 daily for constipation. 9. Colace for constipation. ALLERGIES: Please see further list including, 1. Raglan. 2. Morphine. SOCIAL HISTORY: She is a nonsmoker, but she does admit to some marijuana. FAMILY HISTORY: Mother, cancer of the colon. Father negative. PHYSICAL EXAMINATION: GENERAL: She looks her stated age. She is thin. CARDIOVASCULAR: S1, S2. LUNGS: Decreased breath sounds. HEART: S1, S2. ABDOMEN: Soft, nontender to palpation of left lower quadrant. No guarding. HEMATOLOGY: Negative Homans. PSYCH: Fair mood and affect. NEUROLOGIC: Pupils equal, round and reactive. VITAL SIGNS: Blood pressure 115/75, temp 98.2, pulse 90 to 96, respiratory rate 16 to 18, , O2 93% to 100%. CT of the abdomen and pelvis was reviewed. Ultrasounds reviewed. She has ovarian cyst. Gynecology to see her for the right ovarian cyst, complex in nature. Surgical consult for possible colonoscopy and reassess of this mass seen on the CAT scan that was not seen on the ultrasound. Dr. Sood for possible UTI. Prognosis is guarded, please see further orders. MMODL / IJN: [id number] /
[2024-07-18] MEDS: KETOROLAC 15 MG/ML 1 ML VIAL IVP PRN (23:02)
[2024-07-19 03:51] LABS: Basophils # (A) 0.05 10*3/uL (0.00-0.10); Basophils % (A) 0.6 %; Eosinophils # (A) 0.16 10*3/uL (0.04-0.35); HCT 34.8 % (37.2-46.3); HGB 11.7 g/dL (12.0-15.0); Lymphocytes # (A) 2.88 10*3/uL (0.90-5.00); Lymphocytes % (A) 35.2 %; MCH 32.1 pg (27.0-32.0); MCHC 33.6 g/dL (32.0-37.0); MCV 95.3 fL (80.0-97.0); Mean Platelet Volume 8.3 fL (9.5-12.2); Monocytes # (A) 0.76 10*3/uL (0.20-1.00); Monocytes % (A) 9.3 %; Neutrophils # (A) 4.31 10*3/uL (1.80-7.70); Neutrophils % (A) 52.7 %; Platelet Count 297 10*3/uL (140-440); RBC 3.65 10*6/uL (4.10-5.20); RDW 11.8 % (11.5-14.5); WBC 8.18 10*3/uL (4.50-10.00)
[2024-07-19 04:12] LABS: ALT 15 U/L (4-34); AST 25 U/L (14-36); African American GFR (CKD) >90 (>60 ml/min/1.73 sqM); Albumin 4.3 g/dL (3.5-5.0); Alkaline Phosphatase 60 U/L (38-126); Anion Gap 11 mmol/L; Blood Urea Nitrogen 9 mg/dL (7-17); Calcium 9.2 mg/dL (8.4-10.2); Carbon Dioxide 21 mmol/L (22-30); Chloride 104 mmol/L (98-107); Glucose 63 mg/dL (74-99); Non-African American GFR(CKD) >90 (>60 ml/min/1.73 sqM); Potassium 3.9 mmol/L (3.5-5.1); Sodium 136 mmol/L (137-145); Total Bilirubin 0.6 mg/dL (0.2-1.3); Total Protein 6.7 g/dL (6.3-8.2)
[2024-07-19] MEDS: HYDROcodone/APAP 7.5-325MG 1 EACH TAB PO PRN (09:06)
--- NOTE | 2024-07-19 09:23 | P.CONS ---
History of Present Illness - Reason for Consult Consult date: 07/18/24 Rule out abscess Requesting physician: Armando Willams - Chief Complaint Nausea vomiting diarrhea abdominal pain x 4 days - History of Present Illness Patient is a 29-year-old with a past medical history significant for colitis recurrent UTI kidney stone Crohn's presenting to the hospital for evaluation of nausea vomiting diarrhea and left lower quadrant pain in this patient symptom has been going on for about 4 days before presentation the hospital patient mention multiple episode of diarrhea and painful defecation pain to the left lower quadrant need to mostly the leaking to show moderate intense without any radiation with associated nausea vomiting denies high-grade fever on presentation to the hospital the patient was afebrile no fever have been called subsequently patient was not tachycardic hypotensive or hypoxic did have a white count of 10.23 creatinine 0.59 electrolyte has been normal liver enzymes are normal urine was negative patient did have a abdominal pelvis CT without contrast which mention soft tissue density with central air in the mid pelvis differential could include phlegmon diverticular abscess or neoplasm subsequently did have a transvaginal ultrasound uterus surgically absent right ovary complex area measuring 2.5 X2.5X 1.0 cm left ovary within normal limits no suspicious ultrasound was identified to correlate with the CT findings patient received a dose of Rocephin in the ER subsequently has been admitted to hospital infectious disease was consulted to rule out abscess Review of Systems Positive point and negatives has been mentioned in the HPI, complete review of systems was performed and all other systems are negative Past Medical History Past Medical History: Renal Disease Additional Past Medical History / Comment(s): COLITIS, uti's, kidney infections, interstitial cystitis, kidney stones, RECTAL BLEEDING, cronhs,. covid 02/01 History of Any Multi-Drug Resistant Organisms: None Reported Past Surgical History: Appendectomy, Cholecystectomy, Hysterectomy, Tubal Ligation Additional Past Surgical History / Comment(s): novasure ENDOMETRIAL ABLATION, COLONOSCOPY Past Anesthesia/Blood Transfusion Reactions: No Reported Reaction Past Psychological History: No Psychological Hx Reported Smoking Status: Never smoker Past Alcohol Use History: None Reported Past Drug Use History: None Reported - Past Family History Father Family Medical History: No Reported History Mother Family Medical History: Cancer Additional Family Medical History / Comment(s): COLON CANCER Medications and Allergies Home Medications Medication Instructions Recorded Confirmed Type Ondansetron Odt [Zofran Odt] 4 mg PO Q8HR PRN #10 tab 09/24/23 07/17/24 Rx HYDROcodone/APAP 7.5-325MG [[place] 1 tab PO Q12H PRN 11/30/23 07/17/24 History 7.5-325] Albuterol Sulfate [Ventolin HFA] 2 puff INHALATION RT-DAILY 07/17/24 07/17/24 History Amitriptyline HCl [Elavil] 50 mg PO HS 07/17/24 07/17/24 History Cholecalciferol [Vitamin D3 (25 50 mcg PO DAILY 07/17/24 07/17/24 History Mcg = 1000 Iu)] Cyclobenzaprine [Flexeril] 10 mg PO TID PRN 07/17/24 07/17/24 History Dicyclomine [Bentyl] 10 mg PO TID 07/17/24 07/17/24 History Docusate [Colace] 100 mg PO QID PRN 07/17/24 07/17/24 History Gabapentin 300 mg PO BID 07/17/24 07/17/24 History Linaclotide [Linzess] 145 mcg PO DAILY PRN 07/17/24 07/17/24 History Pantoprazole [Protonix] 40 mg PO BID 07/17/24 07/17/24 History buPROPion XL [Wellbutrin XL] 150 mg PO DAILY 07/17/24 07/17/24 History Allergies Allergy/AdvReac Type Severity Reaction Status Date / Time metoclopramide [From Reglan] AdvReac Mild Rapid Verified 07/17/24 19:19 Heart Rate & Shortness of Breath morphine AdvReac Abdominal Verified 07/17/24 19:19 Pain prochlorperazine maleate AdvReac Rapid Verified 07/17/24 19:19 [From Compazine] Heart Rate & Shortness of Breath Physical Exam Vitals: Vital Signs Temp Pulse Pulse Resp BP BP Pulse Ox 07/18/24 09:09 86 07/18/24 08:57 88 07/18/24 08:30 98 F 82 16 123/78 100 07/18/24 02:00 98.7 F 96 17 126/83 99 07/17/24 22:54 98.6 F 68 17 117/76 96 07/17/24 22:00 90 16 115/75 93 L 07/17/24 15:39 98.2 F 95 16 118/69 100 Intake and Output 07/17/24 07/18/24 07/18/24 22:59 06:59 14:59 Other: Voiding Method Toilet # Voids 1 Weight 72.575 kg GENERAL DESCRIPTION: Middle-age female lying in bed, no distress. No tachypnea or accessory muscle of respiration use. HEENT: Shows Pallor , no scleral icterus. Oral mucous membrane is dry. No ph aryngeal erythema or thrush NECK: Trachea central, no thyromegaly. LUNGS: Unlabored breathing. Clear to auscultation anteriorly. No wheeze or crackle. HEART: S1, S2, regular rate and rhythm. No loud murmur ABDOMEN: Soft, mild left-sided tenderness EXTREMITIES: No edema of feet. SKIN: No rash, no masses palpable. NEUROLOGICAL: The patient is awake, alert, oriented x3, mood and affect normal. Results CBC & Chem 7: 07/19/24 03:34 07/19/24 03:34 Labs: Abnormal Lab Results - Last 24 Hours (Table) 07/17/24 07/17/24 Range/Units 16:22 16:22 WBC 10.23 H (4.50-10.00) 10*3/uL RBC 4.04 L (4.10-5.20) 10*6/uL MCH 32.9 H (27.0-32.0) pg MPV 8.6 L (9.5-12.2) fL Urine Appearance Cloudy H (Clear) Urine Blood Moderate H (Negative) Urine RBC 8 H (0-5) /hpf Urine Bacteria Rare H (None) /hpf Urine Mucus Occasional H (None) /hpf Assessment and Plan (1) Abnormal computed tomography angiography (CTA) of abdomen and pelvis Current Visit: Yes Status: Acute Code(s): R93.5 - ABN FINDINGS ON DX IMAGING OF ABD REGIONS, INC RETROPERITON SNOMED Code(s): 03533598339219211 (2) Diverticular disease of intestine with perforation and abscess Current Visit: Yes Status: Acute Code(s): K57.80 - DVTRCLI OF INTEST, PART UNSP, W PERF AND ABSCESS W/O BLEED SNOMED Code(s): 5535967919071 Plan: 1patient presenting to the hospital with nausea vomiting diarrhea along with abdominal pain she did have minimal tenderness to the left lower quadrant area did have a CT of abdominal pelvis with abnormality seen concerning for possible diverticular abscess and will likely need to cover for the enteric gram-negative with aerobes and anaerobes 2await CT of abdominal pelvis with contrast to completed will better define underlying abdominal pathology. 3will start the patient on Zosyn 3.375 g every 8 hours while waiting for the workup to be completed We will follow on clinical condition and cultures to further adjust medication if needed Thank you for this consultation we will follow the patient along with you Dictation was produced using [employer] dictation software. please excuse any grammatical, word or spelling errors. Time with Patient: Greater than 30
--- NOTE | 2024-07-19 13:26 | MR ---
EXAMINATION TYPE: MR abdomen wo/w con DATE OF EXAM: 07/19/2024 12:51 PM COMPARISON: CT one day earlier and older CTs CLINICAL INDICATION: Female, 39 years old with history of mass on ct scan, Nausea and vomiting, abnor mal CT IV Contrast: 7.5 cc Gadobutrol (None if empty) CONTRAST: Standard multiplanar, multisequence MRI departmental protocol images were obtained without contrast a nd with 7.5 mL intravenous Gadobutrol gadolinium contrast. FINDINGS: Lung bases are grossly clear. The gallbladder is surgically absent. The liver, pancreas, sp landry, and both adrenal glands appear within normal limits. No suspicious renal masses or hydronephros is. No suspicious bowel dilatation. No AAA. Osseous structures are intact. Imaging does not include t he pelvis at the area of concern on CT July 17, 2024 which is the normal abdominal protocol. IMPRESSION: No suspicious intra-abdominal masses. [facility], , 07/19/2024 1:24 PM
--- NOTE | 2024-07-19 15:29 | P.PN ---
Subjective Progress Note Date: 07/19/24 SURGICAL PROGRESS NOTE CHIEF COMPLAINT: Abdominal pain HISTORY OF PRESENT ILLNESS: Patient continues to report left-sided abdominal pain. She reports no improvement in the abdominal pain. She denies any diarrhea. She does report nausea. WBC is 8.18. She is afebrile. CT scan abdomen and pelvis with oral and rectal contrast reports no acute change within the abdomen or pelvis. MRI of the abdomen reports no suspicious intra-abdominal masses. PHYSICAL EXAM: VITAL SIGNS: Reviewed. GENERAL: Well-developed in no acute distress. ABDOMEN: Soft. Nondistended. Tenderness palpation left side of abdomen more so in the left upper abdomen. tender with palpation lower abdomen. NEUROLOGIC: Alert and oriented. Cranial nerves II through XII grossly intact. ASSESSMENT: 1. Left-sided abdominal pain with nausea, vomiting and diarrhea PLAN: -Patient seen and examined with Dr. Ross. Dr. Ross has reviewed CAT scan imaging and MRI imaging. Recommending MRI of the pelvis for further evaluation of patient's lower abdominal pain. -Antibiotics per ID service -Start clear liquid diet and advance as tolerated Physician Cash Register Mechanic note has been reviewed by physician. Signing provider agrees with the documented findings, assessment, and plan of care. Attestation Patient seen and examined at bedside. CT performed yesterday of abdomen and pelvis with oral and rectal contrast was reviewed with no acute findings. MRI was ordered by primary service of the abdomen. No acute findings are noted. However, pelvis was not visualized in the study. Recommended patient to advance diet and plan for MRI of the pelvis. Antibiotics per ID service. Mindy Ross, Objective - Vital Signs Vital signs: Vital Signs Temp 99.6 F 07/19/24 08:03 Pulse 92 07/19/24 08:03 Resp 17 07/19/24 00:18 BP 115/70 07/19/24 08:03 Pulse Ox 100 07/19/24 08:03 FiO2 Intake & Output 07/18/24 07/19/24 07/19/24 18:59 06:59 18:59 Intake Total 0 40 Balance 0 40 Weight 72.575 kg Intake: IV 40 Invasive Line 3 40 Oral 0 Other: Voiding Method Toilet Toilet # Voids 2 1 # Bowel Movements 1 - Labs CBC & Chem 7: 07/19/24 03:34 07/19/24 03:34 Labs: Abnormal Lab Results - Last 24 Hours (Table) 07/19/24 07/19/24 Range/Units 03:34 03:34 RBC 3.65 L (4.10-5.20) 10*6/uL Hgb 11.7 L (12.0-15.0) g/dL Hct 34.8 L (37.2-46.3) % MCH 32.1 H (27.0-32.0) pg MPV 8.3 L (9.5-12.2) fL Sodium 136 L (137-145) mmol/L Carbon Dioxide 21 L (22-30) mmol/L Glucose 63 L (74-99) mg/dL
--- NOTE | 2024-07-19 15:30 | P.PN ---
Subjective Progress Note Date: 07/19/24 Principal diagnosis: Reason for follow-up with abnormal CT concerning for possible diverticulitis with abscess Patient is a 29-year-old with a past medical history significant for colitis recurrent UTI kidney stone Crohn's presenting to the hospital for evaluation of nausea vomiting diarrhea and left lower quadrant pain, initial CT abdominal pelvis without contrast mention possible abscess ultrasound was negative subsequently have CT abdominal pelvis with contrast did not show any abscess. On today's evaluation that is 07/19/2024, Patient is afebrile patient is currently on room air and denies having any shortness of breath, the patient denies any chest pain or cough, the patient complained of feeling nauseous vomiting and left lower quad abdominal pain no further bowel movement. Patient white count is 8.18, creatinine 0.62 Objective - Vital Signs Vital signs: Vital Signs Temp 99.6 F 07/19/24 08:03 Pulse 92 07/19/24 08:03 Resp 17 07/19/24 00:18 BP 115/70 07/19/24 08:03 Pulse Ox 100 07/19/24 08:03 FiO2 Intake & Output 07/18/24 07/19/24 07/19/24 18:59 06:59 18:59 Intake Total 0 40 Balance 0 40 Weight 72.575 kg Intake: IV 40 Invasive Line 3 40 Oral 0 Other: Voiding Method Toilet Toilet # Voids 2 1 # Bowel Movements 1 - Exam GENERAL DESCRIPTION: Middle-age female lying in bed in no distress RESPIRATORY SYSTEM: Unlabored breathing , decreased breath sounds at bases HEART: S1 S2 regular rate and rhythm , ABDOMEN: Soft , no tenderness EXTREMITIES: No edema feet - Labs CBC & Chem 7: 07/19/24 03:34 07/19/24 03:34 Labs: Abnormal Lab Results - Last 24 Hours (Table) 07/19/24 07/19/24 Range/Units 03:34 03:34 RBC 3.65 L (4.10-5.20) 10*6/uL Hgb 11.7 L (12.0-15.0) g/dL Hct 34.8 L (37.2-46.3) % MCH 32.1 H (27.0-32.0) pg MPV 8.3 L (9.5-12.2) fL Sodium 136 L (137-145) mmol/L Carbon Dioxide 21 L (22-30) mmol/L Glucose 63 L (74-99) mg/dL Assessment and Plan (1) Abnormal computed tomography angiography (CTA) of abdomen and pelvis Current Visit: Yes Status: Acute Code(s): R93.5 - ABN FINDINGS ON DX IMAGING OF ABD REGIONS, INC RETROPERITON SNOMED Code(s): 39255690293737692 (2) Diverticular disease of intestine with perforation and abscess Current Visit: Yes Status: Acute Code(s): K57.80 - DVTRCLI OF INTEST, PART UNSP, W PERF AND ABSCESS W/O BLEED SNOMED Code(s): 7200729336592 Plan: 1patient presenting to the hospital with nausea vomiting diarrhea along with abdominal pain she did have minimal tenderness to the left lower quadrant area did have a CT of abdominal pelvis with abnormality seen concerning for possible diverticular abscess and will likely need to cover for the enteric gram-negative with aerobes and anaerobes 2patient did have CT of abdominal pelvis with contrast did not show any acute abnormality with no diverticulitis or abscess 3patient is afebrile white count is normal with negative CT for the colitis, will discontinue Zosyn and monitor patient closely off antibiotic Dictation was produced using [employer] dictation software. please excuse any grammatical, word or spelling errors. Time with Patient: Less than 30
--- NOTE | 2024-07-20 11:15 | P.OBCN ---
History of Present Illness Consult date: 07/20/24 Reason for consult: pelvic mass Chief complaint: Abdominal pain, nausea, vomiting History of present illness: Ms. Roman is a 39 year old who presented to the ER 3 days ago with abdominal pain, nausea, and vomiting found to have a diverticular abscess, being followed by General Surgery and ID. OBGYN was consulted for a complex-appearing 2.5 cm mass on the right ovary. Uterus is surgically absent, left ovary within normal limits. The patient is feeling better after pain control in the hospital, antiemetics, and a few doses of IV antibiotics. She states she has had cysts on her ovaries multiple times over the past few months when she has visited [facility]. OBGYN History: 3 full-term deliveries, 1 SAB. s/p hysterectomy [place] [address] Jackson for AUB Past Surgical History: cholecystectomy, appendectomy, kidney stone lithotripsy Past Medical History: Neurofibromatosis Type I, Chron's Disease Medications: See MAR Past Medical History Past Medical History: Renal Disease Additional Past Medical History / Comment(s): COLITIS, uti's, kidney infections, interstitial cystitis, kidney stones, RECTAL BLEEDING, cronhs,. covid 02/01 History of Any Multi-Drug Resistant Organisms: None Reported Past Surgical History: Appendectomy, Cholecystectomy, Hysterectomy, Tubal Ligation Additional Past Surgical History / Comment(s): novasure ENDOMETRIAL ABLATION, COLONOSCOPY Past Anesthesia/Blood Transfusion Reactions: No Reported Reaction Past Psychological History: No Psychological Hx Reported Smoking Status: Never smoker Past Alcohol Use History: None Reported Past Drug Use History: None Reported - Past Family History Father Family Medical History: No Reported History Mother Family Medical History: Cancer Additional Family Medical History / Comment(s): COLON CANCER Medications and Allergies Home Medications Medication Instructions Recorded Confirmed Type Ondansetron Odt [Zofran Odt] 4 mg PO Q8HR PRN #10 tab 09/24/23 07/17/24 Rx HYDROcodone/APAP 7.5-325MG [Temple 1 tab PO Q12H PRN 11/30/23 07/17/24 History 7.5-325] Albuterol Sulfate [Ventolin HFA] 2 puff INHALATION RT-DAILY 07/17/24 07/17/24 History Amitriptyline HCl [Elavil] 50 mg PO HS 07/17/24 07/17/24 History Cholecalciferol [Vitamin D3 (25 50 mcg PO DAILY 07/17/24 07/17/24 History Mcg = 1000 Iu)] Cyclobenzaprine [Flexeril] 10 mg PO TID PRN 07/17/24 07/17/24 History Dicyclomine [Bentyl] 10 mg PO TID 07/17/24 07/17/24 History Docusate [Colace] 100 mg PO QID PRN 07/17/24 07/17/24 History Gabapentin 300 mg PO BID 07/17/24 07/17/24 History Linaclotide [Linzess] 145 mcg PO DAILY PRN 07/17/24 07/17/24 History Pantoprazole [Protonix] 40 mg PO BID 07/17/24 07/17/24 History buPROPion XL [Wellbutrin XL] 150 mg PO DAILY 07/17/24 07/17/24 History Allergies Allergy/AdvReac Type Severity Reaction Status Date / Time metoclopramide [From Reglan] AdvReac Mild Rapid Verified 07/17/24 19:19 Heart Rate & Shortness of Breath morphine AdvReac Abdominal Verified 07/17/24 19:19 Pain prochlorperazine maleate AdvReac Rapid Verified 07/17/24 19:19 [From Compazine] Heart Rate & Shortness of Breath Exam Vital Signs Temp Pulse Pulse Resp BP BP BP 07/20/24 07:00 98.3 F 90 16 111/72 07/20/24 00:57 99.3 F 85 17 130/65 07/19/24 18:59 99.6 F 92 18 127/83 07/19/24 18:01 98.7 F 74 16 114/73 07/19/24 14:43 98.3 F 63 103/72 Pulse Ox 07/20/24 07:00 100 07/20/24 00:57 100 07/19/24 18:59 100 07/19/24 18:01 100 07/19/24 14:43 95 Intake and Output 07/19/24 07/20/24 07/20/24 22:59 06:59 14:59 Other: Voiding Method Toilet Toilet Toilet # Voids 2 2 Focused physical exam is performed. The patient is in no apparent distress, breathing is non-labored. Abdomen soft, non-tender. Extremities are non-tender and non-edematous. Results Result Diagrams: 07/19/24 03:34 07/19/24 03:34 Assessment and Plan Assessment: 39 year old with incidentally found 2.5 centimeter complex right ovarian mass Plan: Follow up outpatient in 12 weeks for repeat pelvic US to assess for growth or resolution of the mass. Thank you for this consult.
--- NOTE | 2024-07-20 13:59 | P.PN ---
Subjective Progress Note Date: 07/20/24 SURGICAL PROGRESS NOTE CHIEF COMPLAINT: Abdominal pain HISTORY OF PRESENT ILLNESS: Patient continues to report left-sided abdominal pain. She reports no improvement in the abdominal pain. She denies any diarrhea. She does report nausea or vomiting. Patient did eat regular diet. She reports no worsening of pain or nausea with eating. But no improvement with the symptoms either after eating. CT scan abdomen and pelvis with oral and rectal contrast reports no acute change within the abdomen or pelvis. MRI of the abdomen reports no suspicious intra-abdominal masses. Afebrile. WBC 8.18. Infectious disease has discontinued antibiotics. PHYSICAL EXAM: VITAL SIGNS: Reviewed. GENERAL: Well-developed in no acute distress. ABDOMEN: Soft. Nondistended. Tenderness palpation left side of abdomen more so in the left upper abdomen. tender with palpation lower abdomen. NEUROLOGIC: Alert and oriented. Cranial nerves II through XII grossly intact. ASSESSMENT: 1. Left-sided and lower abdominal pain with nausea, vomiting and diarrhea PLAN: -Patient scheduled for an MRI of the pelvis today -Continue regular diet -Continue to monitor Physician Die Equipment Operator note has been reviewed by physician. Signing provider agrees with the documented findings, assessment, and plan of care. Attestation Patient seen and examined at bedside. States nausea has improved but continues to have left-sided and pelvic pain. Awaiting MRI of the pelvis. Further recommendations once this is completed. Mindy Ross, Objective - Vital Signs Vital signs: Vital Signs Temp 98.3 F 07/20/24 07:00 Pulse 90 07/20/24 07:00 Resp 16 07/20/24 07:00 BP 111/72 07/20/24 07:00 Pulse Ox 100 07/20/24 07:00 FiO2 Intake & Output 07/19/24 07/20/24 07/20/24 18:59 06:59 18:59 Intake Total 1000 Balance 1000 Intake: Intake, IV Titration 1000 Amount Piperacillin-Tazobactam 3 100 .375 gm In Sodium Chloride 0.9% 100 ml @ 25 mls/hr IVPB Q8HR [facility] Rx# :[id number] Sodium Chloride 0.9% 1, 900 000 ml @ 75 mls/hr IV . [id number] [facility] Rx#:[id number] Other: Voiding Method Toilet Toilet # Voids 3 2 # Bowel Movements 0 - Labs CBC & Chem 7: 07/19/24 03:34 07/19/24 03:34
[2024-07-20] MEDS: methylPREDNISolone SOD SUCCI 40 MG/ML 1 ML VIAL IV SCH (17:36)
[2024-07-20] MEDS: CLOTRIMAZOLE/BETAMETH 1-0.05% CREAM 45 GM TUBE TOPICAL SCH (20:27)
[2024-07-20 20:47] LABS: Appearance,Urine Cloudy (Clear); Bilirubin,Urine Negative (Negative); Blood,Urine Small (Negative); Color,Urine Colorless; Glucose,Urine (UA) Negative (Negative); Ketones,Urine 1+ (Negative); Leukocyte Esterase,Urine Negative (Negative); Mucus,Urine Rare /hpf; Nitrite,Urine Negative (Negative); PH, Urine 6.5 (5.0-8.0); Protein,Urine Negative (Negative); RBC,Urine 3 /hpf (0-5); Specific Gravity,Urine 1.011 (1.001-1.035); Squamous Epithelial Cell,Urine 19 /hpf (0-4); Urobilinogen,Urine <2.0 mg/dL (<2.0); WBC,Urine 1 /hpf (0-5)
--- NOTE | 2024-07-20 21:57 | P.PN ---
Subjective Progress Note Date: 07/20/24 Principal diagnosis: Reason for follow-up with abnormal CT concerning for possible diverticulitis with abscess Patient is a 29-year-old with a past medical history significant for colitis recurrent UTI kidney stone Crohn's presenting to the hospital for evaluation of nausea vomiting diarrhea and left lower quadrant pain, initial CT abdominal pelvis without contrast mention possible abscess ultrasound was negative subsequently have CT abdominal pelvis with contrast did not show any abscess. On today's evaluation that is 07/20/2024, patient has been afebrile, patient is breathing comfortably and is currently on room air, patient denies having any chest pain and cough, patient still complaining of nausea but no vomiting and left-sided abdominal pain along with the urinary burning. And frequency. No new lab has been obtained today Objective - Vital Signs Vital signs: Vital Signs Temp 98.3 F 07/20/24 07:00 Pulse 90 07/20/24 07:00 Resp 16 07/20/24 07:00 BP 111/72 07/20/24 07:00 Pulse Ox 100 07/20/24 07:00 FiO2 Intake & Output 07/19/24 07/20/24 07/20/24 18:59 06:59 18:59 Intake Total 1000 Balance 1000 Intake: Intake, IV Titration 1000 Amount Piperacillin-Tazobactam 3 100 .375 gm In Sodium Chloride 0.9% 100 ml @ 25 mls/hr IVPB Q8HR [facility] Rx# :[id number] Sodium Chloride 0.9% 1, 900 000 ml @ 75 mls/hr IV . [id number] [facility] Rx#:[id number] Other: Voiding Method Toilet Toilet # Voids 3 2 # Bowel Movements 0 - Exam GENERAL DESCRIPTION: Middle-age female lying in bed in no distress RESPIRATORY SYSTEM: Unlabored breathing , decreased breath sounds at bases HEART: S1 S2 regular rate and rhythm , ABDOMEN: Soft , no tenderness EXTREMITIES: No edema feet - Labs CBC & Chem 7: 07/19/24 03:34 07/19/24 03:34 Assessment and Plan (1) Abnormal computed tomography angiography (CTA) of abdomen and pelvis Current Visit: Yes Status: Acute Code(s): R93.5 - ABN FINDINGS ON DX IMAGING OF ABD REGIONS, INC RETROPERITON SNOMED Code(s): 31105137440307469 (2) Diverticular disease of intestine with perforation and abscess Current Visit: Yes Status: Acute Code(s): K57.80 - DVTRCLI OF INTEST, PART UNSP, W PERF AND ABSCESS W/O BLEED SNOMED Code(s): 0421992446666 Plan: 1patient presenting to the hospital with nausea vomiting diarrhea along with abdominal pain she did have minimal tenderness to the left lower quadrant area did have a CT of abdominal pelvis with abnormality seen concerning for possible diverticular abscess and will likely need to cover for the enteric gram-negative with aerobes and anaerobes 2patient did have CT of abdominal pelvis with contrast did not show any acute abnormality with no diverticulitis or abscess 3patient is afebrile white count is normal with negative CT for the colitis, antibiotics has been discontinued patient now complaining of urinary burning and frequency will repeat a UA with reflex culture if positive we will restart antibiotic otherwise monitor closely off antibiotic therapy Dictation was produced using [employer] dictation software. please excuse any grammatical, word or spelling errors. Time with Patient: Less than 30
--- NOTE | 2024-07-20 23:48 | PN ---
PROGRESS NOTE DATE OF SERVICE: 07/19/2024 SUBJECTIVE: A 39-year-old white female. She was admitted with diverticular abscess, left lower quadrant abdominal pain, and possible pyelonephritis. 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 Surgical consult appreciated. OBJECTIVE: VITAL SIGNS: Stable. Afebrile. CARDIOVASCULAR: S1 and S2. LUNGS: Clear. GI: Soft. Tender to light palpation on the left lower quadrant. PLAN: Continue current treatment. Await for further surgical recommendations. Possible discharge home in a day or 2. MMODL / IJN: [id number] /
[2024-07-21 07:49] VITALS: BP 116/73; PULSE 86; RESP 14; TEMP 98
--- NOTE | 2024-07-21 10:30 | P.PN ---
Progress Note - Text Progress Note Date: 07/21/24 CHIEF COMPLAINT: Abdominal pain HISTORY OF PRESENT ILLNESS: Patient feels better but continues to have some abdominal pain. Denies nausea and vomiting. PHYSICAL EXAM: VITAL SIGNS: Reviewed. GENERAL: Well-developed in no acute distress. ABDOMEN: Soft. Nondistended. Tenderness palpation left side of abdomen more so in the left upper abdomen. tender with palpation lower abdomen. NEUROLOGIC: Alert and oriented. Cranial nerves II through XII grossly intact. ASSESSMENT: 1. Left-sided and lower abdominal pain with nausea, vomiting and diarrhea PLAN: -Patient scheduled for an MRI of the pelvis today -Continue regular diet -Continue to monitor Lopez Ardon DO [facility] [phone]
--- NOTE | 2024-07-21 10:39 | PN ---
PROGRESS NOTE SUBJECTIVE: The patient still complains of back pain, left flank pain to light touch. Suspect she has had lumbar radiculopathy, ordered MRI of the lumbar spine. possibly she could be discharged home on pain medicines. Labs reviewed. All other tests were ordered and reviewed. OBJECTIVE: CARDIOVASCULAR: S1, S2. LUNGS: Transmitted upper sounds. HEMATOLOGY: Negative Homans. PSYCH: Fair mood and affect. NEUROLOGIC: Pupils equal, round and reactive. ASSESSMENT AND PLAN: She does have chronic intermittent hematuria. States that she was diagnosed with chronic groin loin pain syndrome. She prior needed Urology, cystoscopy in the future because she still has hematuria at times. She had a CEA negative blood tests. She was seen by Gynecology for right ovarian cyst. No signs of diverticular abscesses were seen on the MRI or the repeat CAT scans. She will get an MRI of her pelvis and lumbar spine today and then possibly she can go home. Prognosis is guarded. MMODL / IJN: [id number] /
--- NOTE | 2024-07-21 14:10 | MR ---
EXAMINATION TYPE: MR lumbar spine wo con DATE OF EXAM: 07/21/2024 12:39 PM COMPARISON: 07/19/2024.. CLINICAL INDICATION: Female, 39 years old with history of left lower quadrant pain; PHH, left lower q uadrant pain. TECHNIQUE: Multi planar, multi sequence imaging was performed utilizing: T1-weighted, T2-weighted, a nd turbo inversion recovery imaging of the lumbar spine. IV Contrast: mL (None, if empty) FINDINGS: Alignment: The lumbar vertebral bodies have preserved heights and alignment. Cord: The conus medullaris and the distal spinal cord appear unremarkable with regards to their signa l intensity and morphology. Bones/Discs: Mild degeneration changes throughout the spine with osteophyte formation and facet joint arthropathy. Mild disc desiccation at L5-S1. No abnormal inversion recovery signal to suggest bony e mera. Perineural cysts are seen at multiple levels near the left neural foramen including L2-L3, L3-L 4, and bilateral L5-S1. T12-L1: No evidence of significant spinal canal stenosis or neural foraminal stenosis. L1-L2: No evidence of significant spinal canal stenosis or neural foraminal stenosis. L2-L3: No evidence of significant spinal canal stenosis or neural foraminal stenosis. L3-L4: No evidence of significant spinal canal stenosis or neural foraminal stenosis. L4-L5: No evidence of significant spinal canal stenosis or neural foraminal stenosis. L5-S1: The disc has a rounded posterior morphology without significant spinal canal stenosis. Facet j oint arthropathy with mild bilateral neural foraminal stenosis. No significant spinal canal or neural foraminal stenosis in the remainder of the visualized levels. IMPRESSION: 1. No definitive evidence of disc herniation or significant spinal canal stenosis. 2. No significant degeneration of the spine. [facility], , 07/21/2024 2:08 PM
--- NOTE | 2024-07-21 14:23 | MR ---
EXAMINATION TYPE: MR pelvis wo/w con DATE OF EXAM: 07/21/2024 12:52 PM COMPARISON: 07/19/2024. CLINICAL INDICATION: Female, 39 years old with history of pelvic pain; PHH, pelvic pain. TECHNIQUE: Triplane multisequence imaging was performed of the pelvis. IV Contrast: 7 mL Gadobutrol FINDINGS: Reproductive: Vagina: Unremarkable. Uterus: The uterus is surgically absent. Ovaries: Follicular changes are noted to the ovaries. Right ovarian dominant follicle measuring 20 mm . The right ovary measures 35 x 33 x 23 mm. Left ovary is not definitively visualized may be surgical ly absent. Bladder: Unremarkable. Bowel: Area of intrinsic high T1 signal along the serosal surface of the sigmoid colon series [address] [id number]. Peritoneum: No adenopathy. Trace free fluid in the pelvis. Lymph nodes: No evidence of adenopathy. Vasculature: Unremarkable. Musculoskeletal: Bone marrow signal is within normal signal intensity. Abdominal wall/soft tissues: Unremarkable. IMPRESSION: 1. No evidence of suspicious pelvic mass. 2. Surgically absent uterus with high T1 signal on the serosal surface of the sigmoid colon correlate for endometriosis. 3. Trace free fluid in the pelvis. [facility], , 07/21/2024 2:21 PM
--- NOTE | 2024-07-22 13:14 | P.PN ---
Subjective Progress Note Date: 07/21/24 Principal diagnosis: Reason for follow-up with abnormal CT concerning for possible diverticulitis with abscess Patient is a 29-year-old with a past medical history significant for colitis recurrent UTI kidney stone Crohn's presenting to the hospital for evaluation of nausea vomiting diarrhea and left lower quadrant pain, initial CT abdominal pelvis without contrast mention possible abscess ultrasound was negative subsequently have CT abdominal pelvis with contrast did not show any abscess. On today's evaluation that is 07/21/2024, Patient is afebrile this morning patient denies having any chest pain shortness of breath or cough, the patient is currently on room air, patient still complaining of lower abdominal discomfort no nausea vomiting or diarrhea. No new lab has been obtained today pelvis MRI with a question of possible endometriosis Objective - Vital Signs Vital signs: Vital Signs Temp 98.0 F 07/21/24 07:30 Pulse 86 07/21/24 07:30 Resp 14 07/21/24 07:30 BP 116/73 07/21/24 07:30 Pulse Ox 99 07/21/24 07:30 FiO2 Intake & Output 07/20/24 07/21/24 07/21/24 18:59 06:59 18:59 Intake Total 658 Balance 658 Intake: Oral 658 Other: Voiding Method Toilet Toilet # Voids 3 3 - Exam GENERAL DESCRIPTION: Middle-age female lying in bed in no distress RESPIRATORY SYSTEM: Unlabored breathing , decreased breath sounds at bases HEART: S1 S2 regular rate and rhythm , ABDOMEN: Soft , no tenderness EXTREMITIES: No edema feet - Labs CBC & Chem 7: 07/19/24 03:34 07/19/24 03:34 Labs: Abnormal Lab Results - Last 24 Hours (Table) 07/20/24 Range/Units 19:44 Urine Appearance Cloudy H (Clear) Urine Ketones 1+ H (Negative) Urine Blood Small H (Negative) Ur Squamous Epith Cells 19 H (0-4) /hpf Urine Mucus Rare H (None) /hpf Assessment and Plan (1) Abnormal computed tomography angiography (CTA) of abdomen and pelvis Status: Acute Code(s): R93.5 - ABN FINDINGS ON DX IMAGING OF ABD REGIONS, INC RETROPERITON SNOMED Code(s): 92553385761708927 (2) Diverticular disease of intestine with perforation and abscess Status: Acute Code(s): K57.80 - DVTRCLI OF INTEST, PART UNSP, W PERF AND ABSCESS W/O BLEED SNOMED Code(s): 2596240520392 (3) Endometriosis Status: Acute Code(s): N80.9 - ENDOMETRIOSIS, UNSPECIFIED SNOMED Code(s): 500492372 Plan: 1patient presenting to the hospital with nausea vomiting diarrhea along with abdominal pain she did have minimal tenderness to the left lower quadrant area did have a CT of abdominal pelvis with abnormality seen concerning for possible diverticular abscess and will likely need to cover for the enteric gram-negative with aerobes and anaerobes 2patient did have CT of abdominal pelvis with contrast did not show any acute abnormality with no diverticulitis or abscess, did have MRI of the pelvis concerning for possible endometriosis this has been discussed in detail with the patient patient need to follow-up with the OB as soon as possible on discharge with a negative UA encouraged to increase her fluid intake and no need for any antibiotics on discharge Dictation was produced using [employer] dictation software. please excuse any grammatical, word or spelling errors. Time with Patient: Less than 30
== END 2024-07-21 14:47 | disposition home or self-care (01) ==
LOC: EC 15:38 → 1SOBS 20:58 → 6NMEDSUR 07-19 17:40
PROVIDERS: ADMIT Family Medicine; ATTEND Family Medicine
DX: K57.20 Diverticulitis of large intestine with perforation and abscess without bleeding (principal); N83.201 Unspecified ovarian cyst, right side; N80.9 Endometriosis, unspecified; Z79.899 Other long term (current) drug therapy; Z88.5 Allergy status to narcotic agent
CPT/HCPCS: 96376 ×5; 96365 ×2; 96366 ×2; 96375 ×3; 99285; 36415; 94640; 80053 ×2; 82378; 82150; 83690; 85025 ×2; 85610; 85730; 81001 ×2; 93975; 76830; 74176; 74177; 72148; 72197; 74183; G0378 ×5; J2543 ×2; J2405 ×5; J0696; J1171 ×5; J1885 ×2; Q9967; A9585 ×2; J1836; J2919 ×2; J2470 ×4

== ENCOUNTER 2024-08-20 08:01 | Day surgery (SDC) | payer OTHER ==
[2024-08-16 13:41] VITALS: BMI 25.0
[~2024-08-20 08:01] MED LIST changes: -AZITHROMYCIN 500 MG TAB PO STA; +LIDOCAINE 1% (10MG/ML) FOR IV START INTRADERMA PRN; -cefTRIAXone 250 MG VIAL IM STA
[2024-08-20 08:47] VITALS: TEMP 97.2
[2024-08-20] MEDS: LACTATED RINGERS 1,000 ML IV SCH (08:59)
[2024-08-20] MEDS: MIDAZOLAM 2 MG/2 ML VIAL IV ONE (09:01)
[2024-08-20] MEDS: IV FLUID CONTINUATION 1,000 ML IV ONE (09:04)
[2024-08-20] MEDS ORDERED: PROPOFOL 10 MG/ML 20 ML VIAL IV ONE (09:35)
[2024-08-20] MEDS ORDERED: LIDOCAINE 1% INJ 10MG/ML (20 ML MDV) ONE (09:35)
[2024-08-20] MEDS ORDERED: ONDANSETRON 4 MG/2 ML VIAL ONE (09:35)
[2024-08-20 10:18] VITALS: RESP 16
--- NOTE | 2024-08-20 10:55 | XR ---
EXAMINATION TYPE: XR abdomen 1V DATE OF EXAM: 08/20/2024 10:46 AM COMPARISON: 09/24/2023 CLINICAL INDICATION: Female, 39 years old with history of abdominal pain s/p endo, TECHNIQUE: XR abdomen 1V view(s) obtained. FINDINGS: Abundant bowel gas is present through the colon compatible with postcolonoscopy. No mass effect is ev ident. Psoas margins are normal. No organomegaly is present. IMPRESSION: 1. Abundant colonic bowel gas post colonoscopy. [facility], , 08/20/2024 10:53 AM
[2024-08-20 11:01] VITALS: BP 97/71; PULSE 87
--- NOTE | 2024-08-20 20:51 | P.OP ---
Date of Procedure: 08/20/24 Preoperative Diagnosis: Diverticulitus Postoperative Diagnosis: 1. Diverticulosis 2. Poor Prep Procedure(s) Performed: Colonoscopy Anesthesia: MAC Surgeon: Lopez Ardon Pathology: none sent Condition: stable Disposition: PACU Description of Procedure: After informed consent was obtained, the patient was placed in the left lateral position and the above medications were titrated with adequate sedation. Monitoring was provided throughout the entire procedure. Digital rectal exam was performed revealing normal sphincter tone and no external hemorrhoids. The Pentax video colonoscope was inserted into rectum and advanced under direct visualization, without difficulty, to the cecum, where the cecal strap, appendiceal orifice, and the ileocecal valve were identified. The quality of the preparation was poor. The colonoscope was then withdrawn while carefully examining the mucosa. The colonic mucosa appeared normal with normal vascularity and haustral markings. No masses, polyps, or AVM/s were seen. There was diverticulosis noted. On retroflexed view in the rectum, there are small internal hemorrhoids. The endoscope was removed and the procedure terminated. The patient tolerated the procedure well without complications.
== END 2024-08-20 11:32 | disposition home or self-care (01) ==
LOC: ORWHC2ENDO 08:01
PROVIDERS: ATTEND Surgery
DX: K57.30 Diverticulosis of large intestine without perforation or abscess without bleeding (principal); G35 Multiple sclerosis; G40.909 Epilepsy, unspecified, not intractable, without status epilepticus; Z88.5 Allergy status to narcotic agent; Z88.8 Allergy status to other drugs, medicaments and biological substances; Z79.899 Other long term (current) drug therapy
CPT/HCPCS: 74018; 45378; J2250; J2405; J2003; J2704

== ENCOUNTER 2024-08-21 15:41 | Emergency (ER) | payer OTHER ==
--- NOTE | 2024-08-21 17:07 | ED ---
General Adult HPI - General Chief complaint: Abdominal Pain Stated complaint: Urogenital Time Seen by Provider: 08/21/24 16:41 Source: patient, RN notes reviewed Mode of arrival: ambulatory Limitations: no limitations - History of Present Illness Initial comments: 39-year-old female presents to the emergency department for evaluation of abdominal pain. Patient states that this started this morning. She notes that she had a colonoscopy performed yesterday with Dr. Ardon. She reports that the pain is mostly on the left side of her abdomen. She states that she has been passing gas. She has not had a bowel movement since the procedure. She denies any fevers chills. Endorses nausea without vomiting. - Related Data Home Medications Medication Instructions Recorded Confirmed HYDROcodone/APAP 7.5-325MG [[place] 1 tab PO Q12H PRN 11/30/23 08/16/24 7.5-325] Albuterol Sulfate [Ventolin HFA] 2 puff INHALATION RT-DAILY 07/17/24 08/16/24 Amitriptyline HCl [Elavil] 50 mg PO HS 07/17/24 08/16/24 Cholecalciferol [Vitamin D3 (25 50 mcg PO DAILY 07/17/24 08/16/24 Mcg = 1000 Iu)] Cyclobenzaprine [Flexeril] 10 mg PO TID PRN 07/17/24 08/16/24 Dicyclomine [Bentyl] 10 mg PO TID 07/17/24 08/16/24 Docusate [Colace] 100 mg PO QID PRN 07/17/24 08/16/24 Gabapentin 300 mg PO BID 07/17/24 08/16/24 Linaclotide [Linzess] 145 mcg PO DAILY PRN 07/17/24 08/16/24 Pantoprazole [Protonix] 40 mg PO BID 07/17/24 08/16/24 buPROPion XL [Wellbutrin XL] 150 mg PO DAILY 07/17/24 08/16/24 Previous Rx's Medication Instructions Recorded Ondansetron Odt [Zofran ODT] 4 mg PO Q8HR PRN #10 tab 09/24/23 Clotrimazole/Betameth Cream 1 applic TOPICAL BID 30 Days #30 07/21/24 [Lotrisone] each Allergies Allergy/AdvReac Type Severity Reaction Status Date / Time droperidol Allergy Hallucinati Verified 08/21/24 15:44 ons metoclopramide [From Reglan] AdvReac Mild Rapid Verified 08/21/24 15:44 Heart Rate & Shortness of Breath adhesive tape AdvReac Rash/Hives Verified 08/21/24 15:44 morphine AdvReac Abdominal Verified 08/21/24 15:44 Pain prochlorperazine maleate AdvReac Rapid Verified 08/21/24 15:44 [From Compazine] Heart Rate & Shortness of Breath Review of Systems ROS Statement: Those systems with pertinent positive or pertinent negative responses have been documented in the HPI. ROS Other: All systems not noted in ROS Statement are negative. Past Medical History Past Medical History: Renal Disease Additional Past Medical History / Comment(s): COLITIS, uti's, kidney infections, interstitial cystitis, kidney stones, RECTAL BLEEDING, seizures when she was a baby. Vomiting. covid 02/01 History of Any Multi-Drug Resistant Organisms: None Reported Past Surgical History: Appendectomy, Cholecystectomy, Hysterectomy, Tubal Ligation Additional Past Surgical History / Comment(s): Novasure, ENDOMETRIAL ABLATION, COLONOSCOPY Past Anesthesia/Blood Transfusion Reactions: No Reported Reaction Past Psychological History: No Psychological Hx Reported Smoking Status: Never smoker - Past Family History Father Family Medical History: No Reported History Mother Family Medical History: Cancer Additional Family Medical History / Comment(s): COLON CANCER General Exam Limitations: no limitations General appearance: alert, in no apparent distress Head exam: Present: atraumatic, normocephalic, normal inspection Eye exam: Present: normal appearance, PERRL, EOMI. Absent: scleral icterus, conjunctival injection, periorbital swelling Respiratory exam: Present: normal lung sounds bilaterally. Absent: respiratory distress, wheezes, rales, rhonchi, stridor Cardiovascular Exam: Present: regular rate, normal rhythm, normal heart sounds. Absent: systolic murmur, diastolic murmur, rubs, gallop, clicks GI/Abdominal exam: Present: soft, normal bowel sounds. Absent: distended, ten derness, guarding, rebound, rigid Extremities exam: Present: normal inspection, full ROM, normal capillary refill. Absent: tenderness, pedal edema, joint swelling, calf tenderness Back exam: Present: normal inspection Neurological exam: Present: alert, oriented X3 Psychiatric exam: Present: normal affect, normal mood Skin exam: Present: warm, dry, intact, normal color. Absent: rash Course Vital Signs 08/21/24 15:42 Temperature 97.9 F Pulse Rate 100 Respiratory 16 Rate Blood Pressure 127/78 O2 Sat by Pulse 99 Oximetry Medical Decision Making - Medical Decision Making Was pt. sent in by a medical professional or institution (PHYLLIS Burnett, MANAGER PHILOSOPHY, urgent ca re, hospital, or [facility]...) When possible be specific @ -[No] Did you speak to anyone other than the patient for history (EMS, parent, family, police, friend...)? What history was obtained from this source @ -[No] Did you review nursing and triage notes (agree or disagree)? Why? @ -[I reviewed and agree with nursing and triage notes] Were old charts reviewed (outside hosp., previous admission, EMS record, old EKG, old radiological studies, urgent care reports/EKG's, [facility] records)? Report findings @ -[No old charts were reviewed] Differential Diagnosis (chest pain, altered mental status, abdominal pain women, abdominal pain men, vaginal bleeding, weakness, fever, dyspnea, syncope, headache, dizziness, GI bleed, back pain, seizure, CVA, palpatations, mental health, musculoskeletal)? @ -[Differential Abdominal Pain Women: Appendicitis, Cholecystitis, diverticulosis, ischemic bowel, pancreatitis, hepatitis, UTI, gastroenteritis, AAA, incarcerated hernia, bowel obstruction, constipation, inflammatory bowel, hepatitis, peptic ulcer disease, splenic infarction, perforated viscus, vulvitis, ovarian torsion, PID, kidney stone, placenta abruption, this is not meant to be an all-inclusive list ] EKG interpreted by me (3pts min.). @ -None X-rays interpreted by me (1pt min.). @ -[None done] CT interpreted by me (1pt min.). @ -[None done] U/S interpreted by me (1pt. min.). @ -[None done] What testing was considered but not performed or refused? (CT, X-rays, U/S, labs)? Why? @ -[None] What meds were considered but not given or refused? Why? @ -[None] Did you discuss the management of the patient with other professionals (professionals i.e. PHYLLIS Burnett, MANAGER PHILOSOPHY, lab, RT, psych nurse, social service agency director, clinic licensed practical nurse, teacher, chief talent officer, field case manager)? Give summary @ -[No] Was smoking cessation discussed for >3mins.? @ -[No] Was critical care preformed (if so, how long)? @ -[No] Were there social determinants of health that impacted care today? How? (Homelessness, low income, unemployed, alcoholism, drug addiction, transportation, low edu. Level, literacy, decrease access to med. care, assisted, rehab)? @ -[No] Was there de-escalation of care discussed even if they declined (Discuss DNR or withdrawal of care, Hospice)? DNR status @ -[No] What co-morbidities impacted this encounter? (DM, HTN, Smoking, COPD, CAD, Cancer, CVA, ARF, Chemo, Hep., AIDS, mental health diagnosis, sleep apnea, morbid obesity)? @ -[None] Was patient admitted / discharged? Hospital course, mention meds given and route, prescriptions, significant lab abnormalities, going to OR and other pertinent info. @ -[hospital course] Undiagnosed new problem with uncertain prognosis? @ -[No] Drug Therapy requiring intensive monitoring for toxicity (Heparin, Nitro, Insulin, Cardizem)? @ -[No] Were any procedures done? @ -[No] Diagnosis/symptom? @ -[default] Acute, or Chronic, or Acute on Chronic? @ -[default] Uncomplicated (without systemic symptoms) or Complicated (systemic symptoms)? @ -[default] Side effects of treatment? @ -[No] Exacerbation, Progression, or Severe Exacerbation? @ -[No] Poses a threat to life or bodily function? How? (Chest pain, [place], [place], pneumonia, PE, COPD, DKA, ARF, appy, cholecystitis, CVA, Diverticulitis, Homicidal, Suicidal, threat to staff... and all critical care pts) @ -[No] - Lab Data Result diagrams: 08/21/24 17:07 08/21/24 17:07 Lab Results 08/21/24 08/21/24 08/21/24 Range/Units 17:07 17:07 17:16 WBC 8.91 (4.50-10.00) 10*3/uL RBC 3.91 L (4.10-5.20) 10*6/uL Hgb 12.8 (12.0-15.0) g/dL Hct 36.3 L (37.2-46.3) % MCV 92.8 (80.0-97.0) fL MCH 32.7 H (27.0-32.0) pg MCHC 35.3 (32.0-37.0) g/dL Plt Count 319 (140-440) 10*3/uL MPV 8.7 L (9.5-12.2) fL Immature Gran % (Auto) 0.2 % Neutrophils % 52.8 % Lymphocytes % 33.1 % Monocytes % 10.4 % Eosinophils % 2.9 % Basophils % 0.6 % Immature Gran # 0.02 (0.00-0.04) 10*3/uL Neutrophils # 4.70 (1.80-7.70) 10*3/uL Lymphocytes # 2.95 (0.90-5.00) 10*3/uL Monocytes # 0.93 (0.20-1.00) 10*3/uL Eosinophils # 0.26 (0.04-0.35) 10*3/uL Basophils # 0.05 (0.00-0.10) 10*3/uL Sodium 137 (137-145) mmol/L Potassium 3.9 (3.5-5.1) mmol/L Chloride 103 (98-107) mmol/L Carbon Dioxide 24 (22-30) mmol/L Anion Gap 10 mmol/L BUN 10 (7-17) mg/dL Creatinine 0.56 (0.52-1.04) mg/dL Est GFR (CKD-EPI)AfAm >90 (>60 ml/min/1.73 sqM) Est GFR (CKD-EPI)NonAf >90 (>60 ml/min/1.73 sqM) Glucose 79 (74-99) mg/dL Calcium 9.5 (8.4-10.2) mg/dL Total Bilirubin 0.3 (0.2-1.3) mg/dL AST 18 (14-36) U/L ALT 12 (4-34) U/L Alkaline Phosphatase 71 (38-126) U/L Total Protein 7.2 (6.3-8.2) g/dL Albumin 4.5 (3.5-5.0) g/dL Amylase 134 H (30-110) U/L Lipase 265 (23-300) U/L Urine HCG, Qual Not Detected (Not Detectd) Disposition Clinical Impression: Abdominal pain Disposition: HOME SELF-CARE Condition: Stable Additional Instructions: Please follow-up your doctor. Return to the emergency department for new or worsening symptoms. Is patient prescribed a controlled substance at d/c from ED?: No Referrals: Armando Willams MD [Primary Care Provider] - 1-2 days
[2024-08-21] MEDS: KETOROLAC 15 MG/ML 1 ML VIAL IVP STA (18:29)
[2024-08-21] MEDS: ONDANSETRON 4 MG/2 ML VIAL IVP STA (18:30)
[2024-08-21 18:31] LABS: Basophils # (A) 0.05 10*3/uL (0.00-0.10); Basophils % (A) 0.6 %; Eosinophils # (A) 0.26 10*3/uL (0.04-0.35); Eosinophils % (A) 2.9 %; HCT 36.3 % (37.2-46.3); HGB 12.8 g/dL (12.0-15.0); Lymphocytes # (A) 2.95 10*3/uL (0.90-5.00); Lymphocytes % (A) 33.1 %; MCH 32.7 pg (27.0-32.0); MCHC 35.3 g/dL (32.0-37.0); MCV 92.8 fL (80.0-97.0); Mean Platelet Volume 8.7 fL (9.5-12.2); Monocytes # (A) 0.93 10*3/uL (0.20-1.00); Monocytes % (A) 10.4 %; Neutrophils % (A) 52.8 %; Platelet Count 319 10*3/uL (140-440); RBC 3.91 10*6/uL (4.10-5.20); RDW 11.6 % (11.5-14.5); WBC 8.91 10*3/uL (4.50-10.00)
[2024-08-21] MEDS: SODIUM CHLORIDE 0.9% 1,000 ML IV ONE (18:32)
[2024-08-21 18:48] LABS: ALT 12 U/L (4-34); AST 18 U/L (14-36); African American GFR (CKD) >90 (>60 ml/min/1.73 sqM); Albumin 4.5 g/dL (3.5-5.0); Alkaline Phosphatase 71 U/L (38-126); Amylase 134 U/L (30-110); Anion Gap 10 mmol/L; Blood Urea Nitrogen 10 mg/dL (7-17); Calcium 9.5 mg/dL (8.4-10.2); Carbon Dioxide 24 mmol/L (22-30); Chloride 103 mmol/L (98-107); Glucose 79 mg/dL (74-99); Lipase 265 U/L (23-300); Non-African American GFR(CKD) >90 (>60 ml/min/1.73 sqM); Potassium 3.9 mmol/L (3.5-5.1); Sodium 137 mmol/L (137-145); Total Bilirubin 0.3 mg/dL (0.2-1.3); Total Protein 7.2 g/dL (6.3-8.2)
[2024-08-21] MEDS: HYDROmorphone 0.5 MG/0.5 ML SYRINGE IVP STA (19:40)
--- NOTE | 2024-08-21 20:00 | CT ---
EXAMINATION TYPE: CT abdomen pelvis w con DATE OF EXAM: 08/21/2024 7:07 PM COMPARISON: 07/18/2024 CLINICAL INDICATION: Female, 39 years old with history of abd pain, post colonoscopy, Abdominal pain post colonoscopy TECHNIQUE: Axial images were obtained from above the diaphragm to the pubic rami in the axial plane a t 5 mm thick sections. Reconstructed images are reviewed on the computer in the coronal plane. CONTRAST: 100ml mL of Isovue 300. Study performed without Oral Contrast DLP: 738.3 mGycm, Automated exposure control for dose reduction was used. FINDINGS: Limited CT sections are obtained the lung bases. The lung bases are clear. CT ABDOMEN: Liver: Normal Spleen: Normal Pancreas: Normal Adrenal glands: The adrenal glands are normal. Gallbladder: Surgically absent Kidneys: No masses are evident. No hydronephrosis is present. No cysts are present. Delayed images were obtained through the kidneys, which remain unremarkable. Aorta: Normal Inferior vena cava: Normal. CT PELVIS: Loops of bowel within the abdomen and pelvis are normal. There are loops of bowel which are incom pletely distended or lack oral contrast limiting their evaluation. Appendix: Not identified. No dilated tubular structure or inflammatory changes are evident. Urinary bladder: Normal. Genitourinary structures: Uterus is unremarkable. There is a 3.0 cm lung cyst right adnexa. Osseous structures: No suspicious lytic or sclerotic lesions. IMPRESSION: 1. No free air evident. No significant bowel dilatation. [facility], , 08/21/2024 7:58 PM
[2024-08-21] MEDS: HYDROmorphone 1 MG/ML 1 ML SYRINGE IVP STA (20:38)
[2024-08-21 21:03] VITALS: BP 120/73; PULSE 97; RESP 18; TEMP 98.2
== END 2024-08-21 21:03 | disposition home or self-care (01) ==
LOC: EC 15:41
DX: R10.9 Unspecified abdominal pain (principal); Z88.5 Allergy status to narcotic agent; Z91.09 Other allergy status, other than to drugs and biological substances; Z88.8 Allergy status to other drugs, medicaments and biological substances
CPT/HCPCS: 36415; 80053; 82150; 83690; 85025; 81025; 74177; 99284; 96374; 96375; 96376; 96361; J2405; J1171 ×2; J1885; Q9967